=== PATIENT | male | born 1955 | race American Indian/Alaskan Native ===

== ENCOUNTER 2018-07-08 15:42 | Inpatient (IN) | payer OTHER ==
[2018-07-08] MEDS ORDERED: Sodium Chloride 0.9% 1,000 ML IV ONE (16:30)
--- NOTE | 2018-07-08 16:41 | RAD ---
Date of service: 07/08/2018 HISTORY: sob COMPARISON: No prior. FINDINGS: LUNGS: Interstitial and to lesser extent alveolar changes bilaterally. These are primarily peripheral. In the absence of prior studies acuity/chronicity cannot be determined. The overall appearance are suggest chronic interstitial lung disease. PLEURA: No significant pleural effusion identified, no pneumothorax apparent. CARDIOVASCULAR: No atherosclerotic calcification present Normal. OSSEOUS STRUCTURES: No significant abnormalities. VISUALIZED UPPER ABDOMEN: Normal. OTHER FINDINGS: None. IMPRESSION: Peripheral interstitial and to lesser extent confluent changes bilaterally likely chronic in nature. Concordant results with the preliminary interpretation rendered by the emergency department physician procedure.
[2018-07-08 17:05] LABS: BASO # 0.1 K/uL (0.0-0.2); BASO % 0.6 % (0.0-2.0); EOS # 0.1 K/uL (0.0-0.7); EOS % 0.6 % (0.0-4.0); HEMOGLOBIN 13.7 g/dL (12.0-18.0); LYMPH # 1.4 K/uL (1.0-4.3); LYMPH % 11.2 % (20.0-40.0); MEAN CELL VOLUME 97.1 fL (80.0-94.0); MEAN CORPUSCULAR HEMOGLOBIN 32.9 pg (27.0-31.0); MEAN CORPUSCULAR HGB CONC 33.9 g/dL (33.0-37.0); MEAN PLATELET VOLUME 8.6 fL (7.2-11.7); MONO # 0.6 K/uL (0.0-0.8); MONO % 5.1 % (0.0-10.0); NEUT % 82.5 % (50.0-75.0); RBC 4.16 Mil/uL (4.40-5.90); RED CELL DISTRIBUTION WIDTH 14.7 % (11.5-14.5); WHITE BLOOD COUNT 12.1 K/uL (4.8-10.8)
[2018-07-08 17:11] LABS: VENOUS BLOOD GAS PCO2 51 mmHg (40-60); VENOUS BLOOD GAS PO2 19 mm/Hg (30-55); VENOUS BLOOD PH 7.43 (7.32-7.43)
[2018-07-08 17:29] LABS: ALB/GLOB RATIO 0.5 (1.0-2.1); ALBUMIN 3.6 g/dL (3.5-5.0); ALT/SGPT 6 U/L (21-72); AST/SGOT 44 U/L (17-59); BLOOD UREA NITROGEN 9 mg/dL (9-20); CALCIUM 8.8 mg/dl (8.6-10.4); GFR NON-AFRICAN AMERICAN > 60
--- NOTE | 2018-07-08 17:30 | CT ---
Date of service: 07/08/2018 PROCEDURE: CT HEAD WITHOUT CONTRAST. HISTORY: syncope COMPARISON: None available. TECHNIQUE: Axial computed tomography images were obtained through the head/brain without intravenous contrast. Radiation dose: Total exam DLP = 942.83 mGy-cm. This CT exam was performed using one or more of the following dose reduction techniques: Automated exposure control, adjustment of the mA and/or kV according to patient size, and/or use of iterative reconstruction technique. FINDINGS: Streak artifact limits evaluation of the skull base. HEMORRHAGE: No intracranial hemorrhage. BRAIN: No mass effect or edema. No atrophy or chronic microvascular ischemic changes. VENTRICLES: No hydrocephalus. CALVARIUM: Unremarkable. PARANASAL SINUSES: Unremarkable as visualized. No significant inflammatory changes. MASTOID AIR CELLS: Unremarkable as visualized. No inflammatory changes. OTHER FINDINGS: None. IMPRESSION: No acute intracranial pathology identified.
[2018-07-08 18:22] LABS: VENOUS BLOOD GAS BASE EXCESS 3.3 mmol/L (0.0-2.0); VENOUS BLOOD GAS PCO2 48 mmHg (40-60); VENOUS BLOOD GAS PO2 29 mm/Hg (30-55); VENOUS BLOOD PH 7.39 (7.32-7.43)
--- NOTE | 2018-07-08 18:26 | C.PDOC ---
History Of Present Illness 63 y/o male presents to the ER complaining of dizziness. Patient states that he was walking in [facility] when he became dizzy. Someone saw him and gave him a ride to [facility] ER. Upon arrival to ER, patient felt dizzy and fell down on the floor. Rapid response was called in the ER. Patient is also complaining of productive cough with yellow phlegm and chest pain for the past 15 days. He notes that he has loss of appetite and weight loss for the past 2 weeks. He feels nauseous and vomit sometimes after he eats.Denies having fever and chills. Time Seen by Provider: 07/08/18 15:57 Chief Complaint (Nursing): Respiratory Distress History Per: Patient History/Exam Limitations: no limitations Onset/Duration Of Symptoms: Days Current Symptoms Are (Timing): Still Present Severity: Moderate Past Medical History Reviewed: Historical Data, Nursing Documentation, Vital Signs Vital Signs: Last Vital Signs Temp 99.2 F 07/08/18 17:50 Pulse 103 H 07/08/18 17:50 Resp 26 H 07/08/18 17:50 BP 129/87 07/08/18 17:50 Pulse Ox 95 07/08/18 17:50 - Medical History PMH: No Chronic Diseases Other Surgeries: Hx of surgeries Family History: States: No Known Family Hx - Social History Hx Alcohol Use: Yes Hx Substance Use: No - Immunization History Hx Tetanus Toxoid Vaccination: No Hx Influenza Vaccination: No Hx Pneumococcal Vaccination: No Review Of Systems Except As Marked, All Systems Reviewed And Found Negative. Constitutional: Negative for: Fever, Chills Cardiovascular: Positive for: Chest Pain Respiratory: Positive for: Cough. Negative for: Shortness of Breath Gastrointestinal: Positive for: Nausea, Vomiting. Negative for: Abdominal Pain Genitourinary: Negative for: Dysuria, Hematuria Neurological: Positive for: Dizziness Physical Exam - Physical Exam Appears: Other (alert, conscious, appears to be in respiratory distress) Skin: Normal Color, Warm, Dry, Other (clubbing of fingers in bilateral hands) Head: Atraumatic, Normacephalic Eye(s): bilateral: Normal Inspection Nose: Normal Oral Mucosa: Moist Neck: Supple Chest: Symmetrical Cardiovascular: Rhythm Irregular (tachycardiac) Respiratory: Rales (bilaterally), No Rhonchi, No Wheezing, Other (tachypneac) Gastrointestinal/Abdominal: Normal Exam, Bowel Sounds (normal bowel sounds), Soft, No Tenderness, No Guarding, No Rebound Neurological/Psych: Oriented x3, Normal Speech ED Course And Treatment - Laboratory Results Result Diagrams: 07/16/18 08:21 07/16/18 08:21 O2 Sat by Pulse Oximetry: 95 (RA) Pulse Ox Interpretation: Normal - Other Rad CXR X-Ray: Viewed By Me, Read By Radiologist Interpretation: Date of service: 07/08/2018. HISTORY: sob. COMPARISON: No prior. FINDINGS: LUNGS: Interstitial and to lesser extent alveolar changes bilaterally. These are primarily peripheral. In the absence of prior studies acuity/chronicity cannot be determined. The overall appearance are suggest chronic interstitial lung disease. PLEURA: No significant pleural effusion identified, no pneumothorax apparent. CARDIOVASCULAR: No atherosclerotic calcification present. Normal. OSSEOUS STRUCTURES: No significant abnormalities. VISUALIZED UPPER ABDOMEN: Normal. OTHER FINDINGS: None. IMPRESSION: Peripheral interstitial and to lesser extent confluent changes bilaterally likely chronic in nature. . Concordant results with the preliminary interpretation rendered by the emergency department physician\PA at the conclusion of the procedure. - CT Scan/US CT-Chest Other Rad Studies (CT/US): Read By Radiologist, Radiology Report Reviewed CT/US Interpretation: Date of service: 07/08/2018. PROCEDURE: CT Chest without contrast. HISTORY: Interstitial infiltrates on chest radiograph, cough, fever. COMPARISON: None available. TECHNIQUE: Contiguous axial images were obtained through the chest without intravenous contrast enhancement. Sagittal and coronal reconstructions were performed. . Radiation dose: Total exam DLP = 203.96 mGy-cm. This CT exam was performed using one or more of the following dose reduction techniques: Automated exposure control, adjustment of the mA and/or kV according to patient size, and/or use of iterative recon struction technique. FINDINGS: LUNGS: Fairly significant diffuse interstitial fibrosis with areas of bronchiectasis throughout the upper and lower lobes. Additionally, there are also concomitant scattered areas confluent and ground- glass opacities. Elliptical shaped calcified granuloma within the lateral sulcus right lung base. MEDIASTINUM: Heart size is mildly enlarged. No significant pericardial effusion. Ascending thoracic aorta measures approximately 3.4 cm and descending thoracic aorta measures approximately 2.9 cm. Pulmonary trunk measures approximately 2.9 cm. Mild thoracic aortic calcified atherosclerotic plaque present.. Pulmonary artery unremarkable. Mildly enlarged partially calcified paratracheal and subcarinal lymph nodes. Nonspecific partially calcified mediastinal lymph nodes.. Evaluation for hilar adenopathy limited due to lack of circulating intravenous contrast materialwall thickening of the distal esophagus which could be due to protrusion gastric mucosa however esophagitis or other intrinsic/invasive wall lesion not excluded. PLEURA: No pleural fluid. No pneumothorax. BONES: Mild multilevel degenerative spondylosis of the of the thoracic spine. No acute compression fractures no retropulsed fragments.. UPPER ABDOMEN: Grossly unremarkable. OTHER FINDINGS: None. IMPRESSION: Findings consistent with diffuse significant interstitial fibrosis with what probably represents paraseptal emphysematous changes and bronchiectasis. There are scattered areas of confluent and ground-glass opacities. Calcified granuloma right lung base. There are mildly enlarged paratracheal and subcarinal lymph nodes. Small hiatal hernia with wall thickening of distal esophagus as above. CT-Head Other Rad Studies (CT/US): Read By Radiologist, Radiology Report Reviewed CT/US Interpretation: Date of service: 07/08/2018. PROCEDURE: CT HEAD WITHOUT CONTRAST. HISTORY: syncope. COMPARISON: None available. TECHNIQUE: Axial computed tomography images were obtained through the head/brain without intravenous contrast. Radiation dose: Total exam DLP = 942.83 mGy-cm. This CT exam was performed using one or more of the following dose reduction techniques: Automated exposure control, adjustment of the mA and/or kV according to patient size, and/or use of iterative reconstruction technique. FINDINGS: Streak artifact limits evaluation of the skull base. HEMORRHAGE: No intracranial hemorrhage. BRAIN: No mass effect or edema. No atrophy or chronic microvascular ischemic changes. VENTRICLES: No hydrocephalus. CALVARIUM: Unremarkable. PARANASAL SINUSES: Unremarkable as visualized. No significant inflammatory changes. MASTOID AIR CELLS: Unremarkable as visualized. No inflammatory changes. OTHER FINDINGS: None. IMPRESSION: No acute intracranial pathology identified. Medical Decision Making Medical Decision Making: Plan: --Labs --ECG --CXR --UA --CT-Head --CT-Chest --Albuterol --Solu-Medrol IV --IV Fluids Updates: 18:30 Case discussed with , hospitalist. Patient will be admitted under the service of Dr. Mckeon, overnight hospitalist. Disposition - Disposition Disposition: HOSPITALIZED Disposition Time: 18:30 Condition: STABLE - Clinical Impression Clinical Impression: Syncope, Pulmonary fibrosis, Hyperglycemia - Scribe Statement The provider has reviewed the documentation as recorded by the Scribe Sadia Chacon Provider Attestation: All medical record entries made by the Scribe were at my direction and personally dictated by me. I have reviewed the chart and agree that the record accurately reflects my personal performance of the history, physical exam, med ical decision making, and the department course for this patient. I have also personally directed, reviewed, and agree with the discharge instructions and disposition.
[2018-07-08] MEDS ORDERED: Albuterol-Ipratrop 3 mg / 0.5 (3 ml) UD ONE ×3 (18:38→19:35)
[2018-07-08] MEDS: Albuterol-Ipratrop 3 mg / 0.5 (3 ml) UD IH SCH ×3 (18:40→19:33)
[2018-07-08] MEDS: Albuterol-Ipratrop 3 mg / 0.5 (3 ml) UD INH SCH ×3 (21:30→22:07)
[2018-07-08 21:58] LABS: URINE BACTERIA RARE (<OCC); URINE BILIRUBIN NEGATIVE (NEGATIVE); URINE BLOOD 2+ (NEGATIVE); URINE CLARITY Hazy (Clear); URINE COLOR Yellow (YELLOW); URINE GLUCOSE (UA) NORMAL (Normal); URINE LEUKOCYTE ESTERASE NEG Leu/uL (Negative); URINE PROTEIN NEGATIVE (NEGATIVE); URINE UROBILINOGEN NORMAL mg/dL (0.2-1.0)
[2018-07-08] MEDS: MethylPREDNISolone 40 mg Vial IVP SCH (22:10)
[2018-07-08] MEDS ORDERED: Glucagon Recombinant 1 mg Inj IM PRN (22:28)
[2018-07-08] MEDS ORDERED: Dextrose 50% SYRINGE Inj (50 ml) IV PRN (22:28)
--- NOTE | 2018-07-08 22:44 | CP.PCM.HP ---
<Sofia Ospina Y - Last Filed: 07/09/18 05:12> History of Present Illness - History of Present Illness History of Present Illness: cc: "SOB" Mr. Cooley is a 53 year old O[place]i male with PMHx of prediabetes and hypotension who presents to the ED today on 07/08/18 with complaint of shortness of breath with associated chest pain on exertion with productive cough that started 15 days ago. He started to feel unwell and weak about 1 month ago. He says the SOB and chest pain occurred on and off every day, but no longer receded since 15 days ago. He described the chest pain as lung spasms and rated it 5/10 in severity. He located the chest pain as occurring on both sides of his chest and wrapping around his back and going down to his hips. The pain resolves within 30 min of rest, however immediately returns in as few as 5 steps. Every time he coughs, he produces a sticky, thick, white sputum; does not report any blood and mucus in the sputum. He reports that it is now painful to cough. He reports feeling nauseous every time he wants to eat for past 1 week. He estimates a 10kg weight loss in the last two years, mostly over the past 3 months. He says someone found him feeling dizzy and sitting on the ground on [facility] and brought him to the ED. Once in the hospital waiting room, he had an observed syncopal episode. PMD: none PMHx: prediabetes, hypotension Med: none, cannot afford All: NKDA PSHx: unspecified abdominal surgery (20 yrs ago) FamHx: mother and father had diabetes and of [place] in their 70s. SocHx: quit tobacco cold turkey 1 month ago, previous 1/2ppd [id number]. quit alcohol 1 month ago, previously drinking a fifth of liquor (usually vodka) daily. Denies illicit drug use. He does not have family in the country, and illegally immigrated from [place] two years ago. Currently homeless and living in a friend's garage. 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 Denies Proxy Full Code Present on Admission - Present on Admission Any Indicators Present on Admission: No Review of Systems - Constitutional Constitutional: Chills, Weight Loss, Weakness. absent: Excessive Sweating, Fever - EENT Eyes: absent: Change in Vision Ears: absent: Abnormal Hearing, Dizziness - Cardiovascular Cardiovascular: Chest Pain. absent: Palpitations - Respiratory Respiratory: Cough, Dyspnea on Exertion, Excessive Mucous Production, Pain with Coughing. absent: Change in Mucous Color - Gastrointestinal Gastrointestinal: Abdominal Pain. absent: Constipation, Diarrhea, Nausea, Vomiting - Genitourinary Genitourinary: Urinary Frequency. absent: Flank Pain - Musculoskeletal Musculoskeletal: Back Pain, Muscle Weakness, Numbness, Tingling. absent: Myalgias - Integumentary Integumentary: Dry Skin, Wounds. absent: Rash, Swelling, Unusual Bruising - Neurological Neurological: Disequilibrium, Dizziness, Syncope. absent: Numbness, Tingling - Psychiatric Psychiatric: Depression - Endocrine Endocrine: Fatigue, Polyuria. absent: Excessive Sweating - Hematologic/Lymphatic Hematologic: absent: Easy Bleeding, Easy Bruising Past Patient History - Past Medical History & Family History Pertinent Family History: DM on both sides - Past Social History Smoking Status: Heavy Smoker > 10 Cigarettes Daily (quit <1 mo ago) Alcohol: > 2 Drinks/Day (used to drink 1/2 500mL bottle of vodka per day, quit drinking 1 month ago) Drugs: Denies Home Situation {Lives}: Homeless - CARDIAC Hx Hypotension: Yes - PSYCHIATRIC Hx Substance Use: No - SURGICAL HISTORY Hx Surgeries: Yes Other/Comment: peptic ulcer surgery - ANESTHESIA Hx Anesthesia: No Hx Anesthesia Reactions: No Meds Allergies/Adverse Reactions: Allergies Allergy/AdvReac Type Severity Reaction Status Date / Time No Known Allergies Allergy Unverified 07/08/18 15:44 Physical Exam - Constitutional Appears: In Acute Distress - Head Exam Head Exam: NORMAL INSPECTION - Eye Exam Eye Exam: EOMI, Normal appearance, PERRL Pupil Exam: NORMAL ACCOMODATION - ENT Exam ENT Exam: Mucous Membranes Dry - Neck Exam Neck exam: Negative for: Lymphadenopathy, Tenderness, Thyromegaly - Respiratory Exam Respiratory Exam: Accessory Muscle Use, Rales, Wheezes Additional comments: diffuse rales, worst in R lower lobe expiratory wheeze - Cardiovascular Exam Cardiovascular Exam: Tachycardia, JVD, +S1, +S2. absent: Rubs Additional comments: diminished heart sounds - GI/Abdominal Exam GI & Abdominal Exam: Normal Bowel Sounds, Pulsatile Mass (1 inch L of midline), Soft. absent: Distended, Firm, Guarding, Rebound Additional comments: TTP over midline surgical scar - Extremities Exam Extremities exam: Positive for: normal capillary refill, pedal pulses present Additional comments: R foot cool to touch peripheral pulses palpable bilaterally (radial, PT, DP) - Back Exam Back exam: absent: CVA tenderness (L), CVA tenderness (R) - Neurological Exam Neurological exam: Alert, CN II-XII Intact, Oriented x3, Reflexes Normal - Psychiatric Exam Psychiatric exam: Normal Affect, Normal Mood - Skin Skin Exam: Normal Color, Warm Additional comments: Dry flaky skin on bilateral shins consistent with PVD bilateral finger clubbing Results - Vital Signs Recent Vital Signs: Last Vital Signs Temp 98.3 F 07/08/18 20:43 Pulse 103 H 07/08/18 22:08 Resp 47 H 07/08/18 20:43 BP 129/84 07/08/18 20:43 Pulse Ox 94 L 07/08/18 20:43 - Labs Result Diagrams: 07/09/18 04:36 07/09/18 04:36 Labs: Laboratory Results - last 24 hr 07/08/18 07/08/18 07/08/18 16:57 16:57 17:09 WBC 12.1 H RBC 4.16 L Hgb 13.7 Hct 40.3 MCV 97.1 H MCH 32.9 H MCHC 33.9 RDW 14.7 H Plt Count 319 MPV 8.6 Neut % (Auto) 82.5 H Lymph % (Auto) 11.2 L Cache % (Auto) 5.1 Eos % (Auto) 0.6 Baso % (Auto) 0.6 Neut # (Auto) 10.0 H Lymph # (Auto) 1.4 Cache # (Auto) 0.6 Eos # (Auto) 0.1 Baso # (Auto) 0.1 pO2 19 L VBG pH 7.43 VBG pCO2 51 VBG HCO3 29.4 VBG Total CO2 35.5 H VBG O2 Sat (Calc) 28.3 L VBG Base Excess 8.0 H VBG Potassium 4.5 Glucose 129 H Lactate 1.4 Sodium 137 138.0 Potassium 4.7 Chloride 96 L 104.0 Carbon Dioxide 32 H Anion Gap 14 BUN 9 Creatinine 0.7 L Est GFR ( Amer) > 60 Est GFR (Non-Af Amer) > 60 Random Glucose 136 H Calcium 8.8 Phosphorus 3.7 Magnesium 2.1 Total Bilirubin 0.4 AST 44 ALT 6 L Alkaline Phosphatase 72 Troponin I 0.0270 NT-Pro-B Natriuret Pep Total Protein 10.0 H Albumin 3.6 Globulin 6.5 H Albumin/Globulin Ratio 0.5 L Venous Blood Potassium 4.5 Urine Color Urine Clarity Urine pH Ur Specific Perkins Urine Protein Urine Glucose (UA) Urine Ketones Urine Blood Urine Nitrate Urine Bilirubin Urine Urobilinogen Ur Leukocyte Esterase Urine WBC (Auto) Urine RBC (Auto) Urine Bacteria Influenza Typ A,B (EIA) 07/08/18 07/08/18 07/08/18 17:35 18:19 18:25 WBC RBC Hgb Hct MCV MCH MCHC RDW Plt Count MPV Neut % (Auto) Lymph % (Auto) Cache % (Auto) Eos % (Auto) Baso % (Auto) Neut # (Auto) Lymph # (Auto) Cache # (Auto) Eos # (Auto) Baso # (Auto) pO2 29 L VBG pH 7.39 VBG pCO2 48 VBG HCO3 26.3 VBG Total CO2 30.6 H VBG O2 Sat (Calc) 56.3 VBG Base Excess 3.3 H VBG Potassium 4.2 Glucose 101 Lactate 1.5 Sodium 138.0 Potassium Chloride 105.0 Carbon Dioxide Anion Gap BUN Creatinine Est GFR ( Amer) Est GFR (Non-Af Amer) Random Glucose Calcium Phosphorus Magnesium Total Bilirubin AST ALT Alkaline Phosphatase Troponin I NT-Pro-B Natriuret Pep 1540 H Total Protein Albumin Globulin Albumin/Globulin Ratio Venous Blood Potassium 4.2 Urine Color Urine Clarity Urine pH Ur Specific Perkins Urine Protein Urine Glucose (UA) Urine Ketones Urine Blood Urine Nitrate Urine Bilirubin Urine Urobilinogen Ur Leukocyte Esterase Urine WBC (Auto) Urine RBC (Auto) Urine Bacteria Influenza Typ A,B (EIA) Negative for flu a/b 07/08/18 21:42 WBC RBC Hgb Hct MCV MCH MCHC RDW Plt Count MPV Neut % (Auto) Lymph % (Auto) Cache % (Auto) Eos % (Auto) Baso % (Auto) Neut # (Auto) Lymph # (Auto) Cache # (Auto) Eos # (Auto) Baso # (Auto) pO2 VBG pH VBG pCO2 VBG HCO3 VBG Total CO2 VBG O2 Sat (Calc) VBG Base Excess VBG Potassium Glucose Lactate Sodium Potassium Chloride Carbon Dioxide Anion Gap BUN Creatinine Est GFR ( Amer) Est GFR (Non-Af Amer) Random Glucose Calcium Phosphorus Magnesium Total Bilirubin AST ALT Alkaline Phosphatase Troponin I NT-Pro-B Natriuret Pep Total Protein Albumin Globulin Albumin/Globulin Ratio Venous Blood Potassium Urine Color Yellow Urine Clarity Hazy Urine pH 6.0 Ur Specific Perkins 1.011 Urine Protein Negative Urine Glucose (UA) Normal Urine Ketones Negative Urine Blood 2+ H Urine Nitrate Negative Urine Bilirubin Negative Urine Urobilinogen Normal Ur Leukocyte Esterase Neg Urine WBC (Auto) < 1 Urine RBC (Auto) 15 H Urine Bacteria Rare Influenza Typ A,B (EIA) Assessment & Plan - Assessment and Plan (Free Text) Assessment: 63yo [place]man[place] M admitted for respiratory distress. Shortness of breath with assoc chest pain and productive cough has progressively worsening over the last 15 days. Plan: Respiratory Distress with tachypnea - CXR (07/08): Peripheral interstitial and to lesser extent confluent changes bilaterally likely chronic in nature - CT Head (07/08): No acute intracranial pathology identified - CT Chest (07/08): pending read. Prelim read: Extensive diffuse chronic interstitial lung disease with assoc bronchiectasis. Precarinal and paratracheal lymphadenopathy - ProBNP 1540 - VBG on admission: pH 7.39, total CO2 30.6 - ABG after 1 hr BiPAP: pH 7.38, total CO2 26.7 - UA 2+ blood, 15 RBC - UDS neg - Flu neg - f/u sputum Cx - f/u PPD, Quatiferon, HIV - f/u ECHO - Solumedrol 60mg IVP q8 (125mg IV given in ED) - Azithro 500mg IVPB daily (started 07/09) - Ceftriaxone 1gm IVPB daily (started 07/09) - Critical Care consulted: Dr. Hoffman - recs appreciated - Duoneb q30 min x3 given in ED - Duoneb q6 ATC - BiPAP despite good O2 saturation - fluid restriction - Pulm consult: Dr. Vera - help appreciated - respiratory isolation until TB neg and sputum Cx result Syncope - likely 2/2 hypoxia from respiratory distress - observed syncopal event in ED waiting area - see above for plan Diabetes Mellitus - f/u Hgb A1c - ISS - Accuchecks ACHS - hypoglycemia protocol Abdominal mass - f/u US aorta - monitor BP PPx - DVT: Heparin 5000u sc q12, SCD CI 2/2 PVD - GI: Protonix 40mg IVP daily - Diet: CLD, ADAT d/w Dr. Miriam Ospina PGY-1 - Date & Time Date: 07/08/18 Time: 21:00 <Artem Pineda - Last Filed: 07/09/18 06:23> Results - Vital Signs Recent Vital Signs: Last Vital Signs Temp 98.3 F 07/08/18 20:43 Pulse 65 07/09/18 06:14 Resp 17 07/09/18 06:14 BP 115/75 07/09/18 06:14 Pulse Ox 98 07/09/18 06:14 - Labs Result Diagrams: 07/09/18 04:36 07/09/18 04:36 Labs: Laboratory Results - last 24 hr 07/08/18 07/08/18 07/08/18 16:57 16:57 17:09 WBC 12.1 H RBC 4.16 L Hgb 13.7 Hct 40.3 MCV 97.1 H MCH 32.9 H MCHC 33.9 RDW 14.7 H Plt Count 319 MPV 8.6 Neut % (Auto) 82.5 H Lymph % (Auto) 11.2 L Cache % (Auto) 5.1 Eos % (Auto) 0.6 Baso % (Auto) 0.6 Neut # (Auto) 10.0 H Lymph # (Auto) 1.4 Cache # (Auto) 0.6 Eos # (Auto) 0.1 Baso # (Auto) 0.1 Neutrophils % (Manual) Lymphocytes % (Manual) Monocytes % (Manual) Platelet Estimate Puncture Site pCO2 pO2 19 L HCO3 ABG pH ABG Total CO2 ABG O2 Saturation ABG Base Excess ABG Hemoglobin ABG Carboxyhemoglobin POC ABG HHb (Measured) ABG Methemoglobin Ron Test VBG pH 7.43 VBG pCO2 51 VBG HCO3 29.4 VBG Total CO2 35.5 H VBG O2 Sat (Calc) 28.3 L VBG Base Excess 8.0 H VBG Potassium 4.5 A-a O2 Difference Respiratory Index Hgb O2 Saturation Glucose 129 H Lactate 1.4 Vent Mode Mechanical Rate FiO2 Inspiratory BiPAP Expiratory BiPAP Sodium 137 138.0 Potassium 4.7 Chloride 96 L 104.0 Carbon Dioxide 32 H Anion Gap 14 BUN 9 Creatinine 0.7 L Est GFR ( Amer) > 60 Est GFR (Non-Af Amer) > 60 POC Glucose (mg/dL) Random Glucose 136 H Calcium 8.8 Phosphorus 3.7 Magnesium 2.1 Total Bilirubin 0.4 AST 44 ALT 6 L Alkaline Phosphatase 72 Troponin I 0.0270 NT-Pro-B Natriuret Pep Total Protein 10.0 H Albumin 3.6 Globulin 6.5 H Albumin/Globulin Ratio 0.5 L Venous Blood Potassium 4.5 Urine Color Urine Clarity Urine pH Ur Specific Perkins Urine Protein Urine Glucose (UA) Urine Ketones Urine Blood Urine Nitrate Urine Bilirubin Urine Urobilinogen Ur Leukocyte Esterase Urine WBC (Auto) Urine RBC (Auto) Urine Bacteria Urine Opiates Screen Urine Methadone Screen Ur Barbiturates Screen Ur Phencyclidine Scrn Ur Amphetamines Screen U Benzodiazepines Scrn U Oth Cocaine Metabols U Cannabinoids Screen HIV 1&2 Antibody Screen Influenza Typ A,B (EIA) 07/08/18 07/08/18 07/08/18 17:35 18:19 18:25 WBC RBC Hgb Hct MCV MCH MCHC RDW Plt Count MPV Neut % (Auto) Lymph % (Auto) Cache % (Auto) Eos % (Auto) Baso % (Auto) Neut # (Auto) Lymph # (Auto) Cache # (Auto) Eos # (Auto) Baso # (Auto) Neutrophils % (Manual) Lymphocytes % (Manual) Monocytes % (Manual) Platelet Estimate Puncture Site pCO2 pO2 29 L HCO3 ABG pH ABG Total CO2 ABG O2 Saturation ABG Base Excess ABG Hemoglobin ABG Carboxyhemoglobin POC ABG HHb (Measured) ABG Methemoglobin Ron Test VBG pH 7.39 VBG pCO2 48 VBG HCO3 26.3 VBG Total CO2 30.6 H VBG O2 Sat (Calc) 56.3 VBG Base Excess 3.3 H VBG Potassium 4.2 A-a O2 Difference Respiratory Index Hgb O2 Saturation Glucose 101 Lactate 1.5 Vent Mode Mechanical Rate FiO2 Inspiratory BiPAP Expiratory BiPAP Sodium 138.0 Potassium Chloride 105.0 Carbon Dioxide Anion Gap BUN Creatinine Est GFR ( Amer) Est GFR (Non-Af Amer) POC Glucose (mg/dL) Random Glucose Calcium Phosphorus Magnesium Total Bilirubin AST ALT Alkaline Phosphatase Troponin I NT-Pro-B Natriuret Pep 1540 H Total Protein Albumin Globulin Albumin/Globulin Ratio Venous Blood Potassium 4.2 Urine Color Urine Clarity Urine pH Ur Specific Perkins Urine Protein Urine Glucose (UA) Urine Ketones Urine Blood Urine Nitrate Urine Bilirubin Urine Urobilinogen Ur Leukocyte Esterase Urine WBC (Auto) Urine RBC (Auto) Urine Bacteria Urine Opiates Screen Urine Methadone Screen Ur Barbiturates Screen Ur Phencyclidine Scrn Ur Amphetamines Screen U Benzodiazepines Scrn U Oth Cocaine Metabols U Cannabinoids Screen HIV 1&2 Antibody Screen Influenza Typ A,B (EIA) Negative for flu a/b 07/08/18 07/08/18 07/08/18 21:42 23:00 23:51 WBC RBC Hgb Hct MCV MCH MCHC RDW Plt Count MPV Neut % (Auto) Lymph % (Auto) Cache % (Auto) Eos % (Auto) Baso % (Auto) Neut # (Auto) Lymph # (Auto) Cache # (Auto) Eos # (Auto) Baso # (Auto) Neutrophils % (Manual) Lymphocytes % (Manual) Monocytes % (Manual) Platelet Estimate Puncture Site Rradial pCO2 43 pO2 206 H HCO3 24.9 ABG pH 7.38 ABG Total CO2 26.7 ABG O2 Saturation 98.6 H ABG Base Excess 0 ABG Hemoglobin 14.5 ABG Carboxyhemoglobin 1.1 POC ABG HHb (Measured) 1.4 ABG Methemoglobin 0.9 Ron Test Pos VBG pH VBG pCO2 VBG HCO3 VBG Total CO2 VBG O2 Sat (Calc) VBG Base Excess VBG Potassium A-a O2 Difference 25.0 Respiratory Index 0.1 Hgb O2 Saturation 96.6 Glucose Lactate Vent Mode Bipap Mechanical Rate 12 FiO2 40.0 Inspiratory BiPAP 12 Expiratory BiPAP 6 Sodium Potassium Chloride Carbon Dioxide Anion Gap BUN Creatinine Est GFR ( Amer) Est GFR (Non-Af Amer) POC Glucose (mg/dL) Random Glucose Calcium Phosphorus Magnesium Total Bilirubin AST ALT Alkaline Phosphatase Troponin I NT-Pro-B Natriuret Pep Total Protein Albumin Globulin Albumin/Globulin Ratio Venous Blood Potassium Urine Color Yellow Urine Clarity Hazy Urine pH 6.0 Ur Specific Perkins 1.011 Urine Protein Negative Urine Glucose (UA) Normal Urine Ketones Negative Urine Blood 2+ H Urine Nitrate Negative Urine Bilirubin Negative Urine Urobilinogen Normal Ur Leukocyte Esterase Neg Urine WBC (Auto) < 1 Urine RBC (Auto) 15 H Urine Bacteria Rare Urine Opiates Screen Negative Urine Methadone Screen Negative Ur Barbiturates Screen Negative Ur Phencyclidine Scrn Negative Ur Amphetamines Screen Negative U Benzodiazepines Scrn Negative U Oth Cocaine Metabols Negative U Cannabinoids Screen Negative HIV 1&2 Antibody Screen Influenza Typ A,B (EIA) 07/09/18 07/09/18 07/09/18 00:22 04:36 04:36 WBC 6.9 RBC 4.26 L Hgb 13.9 Hct 42.1 MCV 98.8 H MCH 32.6 H MCHC 33.0 RDW 14.9 H Plt Count 300 MPV 8.7 Neut % (Auto) 90.6 H Lymph % (Auto) 8.4 L Cache % (Auto) 0.7 Eos % (Auto) 0.0 Baso % (Auto) 0.3 Neut # (Auto) 6.2 Lymph # (Auto) 0.6 L Cache # (Auto) 0.0 Eos # (Auto) 0.0 Baso # (Auto) 0.0 Neutrophils % (Manual) 88 H Lymphocytes % (Manual) 9 L Monocytes % (Manual) 3 Platelet Estimate Normal Puncture Site pCO2 pO2 HCO3 ABG pH ABG Total CO2 ABG O2 Saturation ABG Base Excess ABG Hemoglobin ABG Carboxyhemoglobin POC ABG HHb (Measured) ABG Methemoglobin Ron Test VBG pH VBG pCO2 VBG HCO3 VBG Total CO2 VBG O2 Sat (Calc) VBG Base Excess VBG Potassium A-a O2 Difference Respiratory Index Hgb O2 Saturation Glucose Lactate Vent Mode Mechanical Rate FiO2 Inspiratory BiPAP Expiratory BiPAP Sodium 136 Potassium 5.1 Chloride 102 Carbon Dioxide 27 Anion Gap 12 BUN 14 Creatinine 0.7 L Est GFR ( Amer) > 60 Est GFR (Non-Af Amer) > 60 POC Glucose (mg/dL) 203 H Random Glucose 173 H Calcium 8.7 Phosphorus 5.2 H Magnesium 2.2 Total Bilirubin 0.4 AST 38 ALT 9 L D Alkaline Phosphatase 71 Troponin I NT-Pro-B Natriuret Pep Total Protein 9.5 H Albumin 3.5 Globulin 6.0 H Albumin/Globulin Ratio 0.6 L Venous Blood Potassium Urine Color Urine Clarity Urine pH Ur Specific Perkins Urine Protein Urine Glucose (UA) Urine Ketones Urine Blood Urine Nitrate Urine Bilirubin Urine Urobilinogen Ur Leukocyte Esterase Urine WBC (Auto) Urine RBC (Auto) Urine Bacteria Urine Opiates Screen Urine Methadone Screen Ur Barbiturates Screen Ur Phencyclidine Scrn Ur Amphetamines Screen U Benzodiazepines Scrn U Oth Cocaine Metabols U Cannabinoids Screen HIV 1&2 Antibody Screen Influenza Typ A,B (EIA) 07/09/18 04:36 WBC RBC Hgb Hct MCV MCH MCHC RDW Plt Count MPV Neut % (Auto) Lymph % (Auto) Cache % (Auto) Eos % (Auto) Baso % (Auto) Neut # (Auto) Lymph # (Auto) Cache # (Auto) Eos # (Auto) Baso # (Auto) Neutrophils % (Manual) Lymphocytes % (Manual) Monocytes % (Manual) Platelet Estimate Puncture Site pCO2 pO2 HCO3 ABG pH ABG Total CO2 ABG O2 Saturation ABG Base Excess ABG Hemoglobin ABG Carboxyhemoglobin POC ABG HHb (Measured) ABG Methemoglobin Ron Test VBG pH VBG pCO2 VBG HCO3 VBG Total CO2 VBG O2 Sat (Calc) VBG Base Excess VBG Potassium A-a O2 Difference Respiratory Index Hgb O2 Saturation Glucose Lactate Vent Mode Mechanical Rate FiO2 Inspiratory BiPAP Expiratory BiPAP Sodium Potassium Chloride Carbon Dioxide Anion Gap BUN Creatinine Est GFR ( Amer) Est GFR (Non-Af Amer) POC Glucose (mg/dL) Random Glucose Calcium Phosphorus Magnesium Total Bilirubin AST ALT Alkaline Phosphatase Troponin I NT-Pro-B Natriuret Pep Total Protein Albumin Globulin Albumin/Globulin Ratio Venous Blood Potassium Urine Color Urine Clarity Urine pH Ur Specific Perkins Urine Protein Urine Glucose (UA) Urine Ketones Urine Blood Urine Nitrate Urine Bilirubin Urine Urobilinogen Ur Leukocyte Esterase Urine WBC (Auto) Urine RBC (Auto) Urine Bacteria Urine Opiates Screen Urine Methadone Screen Ur Barbiturates Screen Ur Phencyclidine Scrn Ur Amphetamines Screen U Benzodiazepines Scrn U Oth Cocaine Metabols U Cannabinoids Screen HIV 1&2 Antibody Screen Negative Influenza Typ A,B (EIA) Assessment & Plan - Date & Time Date: 07/09/18 (I have seen and examined the patient. I agree with the findings and plan of care as documented by Dr. Ospina. Patient with respiratory distress. Pulmonary fibrosis. Consult to pulm. ICU consult appreciated. Anicetoro and Swetha for now. BIPAP. Also with history of diabetes. NISS and accuchecks. Monitor for acute changes.) Time: 06:21 Attending/Attestation - Attestation I have personally seen and examined this patient.: Yes I have fully participated in the care of the patient.: Yes I have reviewed all pertinent clinical information: Yes
[2018-07-08 23:11] LABS: ABG ALLEN TEST POS; ARTERIAL BLOOD GAS HCO3 24.9 mmol/L (21-28); ARTERIAL BLOOD GAS HEMOGLOBIN 14.5 g/dL (11.7-17.4); ARTERIAL BLOOD GAS O2 SAT 98.6 % (95-98); ARTERIAL BLOOD GAS PCO2 43 mm/Hg (35-45); ARTERIAL BLOOD GAS PH 7.38 (7.35-7.45); ARTERIAL BLOOD GAS PO2 206 mm/Hg (80-100); ARTERIAL BLOOD GAS TCO2 26.7 mmol/L (22-28)
[2018-07-08] MEDS ORDERED: Tuberculin 5 Units/0.1 ml Inj ID ONE (23:45)
[2018-07-09 00:10] LABS: BARBITURATES, UR NEGATIVE (NEGATIVE); BENZODIAZEPINES, UR NEGATIVE (NEGATIVE); OPIATES, UR NEGATIVE (NEGATIVE); PHENCYCLIDINE, UR NEGATIVE (NEGATIVE)
--- NOTE | 2018-07-09 00:44 | CP.CCUPN ---
CCU Subjective - Physician Review Subjective (Free Text): 07/09/18 04:28 The patient was Seen/interviewed and examined by me at the bedside, Medical records reviewed and Management issues were discussed and formulated with the house staff. Events reviewed Mr Cooley is a 63 Years old Former tobacco smoker (1/2 PPD [id number], quit 1 month ago) Male with PMHx of prediabetes and hypotension Who presented to the Emergency department with complaint of worsening shortness of breath, productive cough with white sputum associated pleuritic chest pain for the past two weeks Pt admits 10kg weight loss in the last two years, mostly over the past 3 months. 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 I belive the chest CT findings of extensive fibrosis however do not allow a confident diagnosis of IPF, and lung biopsy is indicated for histopathologic confirmation Lung biopsy options include Bronch, video-assisted thoracoscopic approach or thoracotomy Please send serilogical marker for Rheumatic, connective tissue diseases CCU Objective - Vital Signs / Intake & Output Vital Signs (Last 4 hours): Vital Signs Temp Pulse Resp BP Pulse Ox 07/08/18 23:48 91 H 31 H 106/76 97 07/08/18 22:08 103 H 07/08/18 20:43 98.3 F 106 H 47 H 129/84 94 L Intake and Output (Last 8hrs): Intake & Output 07/08/18 07/08/18 07/09/18 14:59 22:59 06:59 Weight 150 lb - Physical Exam Physical Exam Limitations: Positive for: Clinical Condition Head: Positive for: Atraumatic, Normocephalic. Negative for: Tenderness, Contusion, Swelling, Ecchymosis Pupils: Positive for: PERRL. Negative for: Sluggish, Non-Reactive Extroacular Muscles: Positive for: EOMI Conjunctiva: Positive for: Normal. Negative for: Injected, Icteric Ears: Positive for: Normal Mouth: Positive for: Moist Mucous Membranes Nose (Internal): Positive for: Normal Inspection, No Active Bleeding Neck: Positive for: Normal Range of Motion, Trachea Midline. Negative for: Meningeal Signs, MIDLINE TENDERNESS, Paraspinal Tenderness, JVD, Lymphadenopathy, Bruit, Other Respiratory/Chest: Positive for: Good Air Exchange, Decreased Breath Sounds, Rhonchi, Tachypneic. Negative for: Clear to Auscultation, Respiratory Distress, Accessory Muscle Use, Rales, Retracting Cardiovascular: Positive for: Regular Rate and Rhythm, Normal S1, S2, Peripheal Pulses Present, Tachycardic. Negative for: Murmurs, Irregular Rhythm, Muffled Abdomen: Positive for: Normal Bowel Sounds. Negative for: Tenderness, Distention, Peritoneal Signs Upper Extremity: Positive for: NORMAL PULSES. Negative for: Normal Inspection (Clubbing), Cyanosis, Edema Lower Extremity: Positive for: Normal Inspection, NORMAL PULSES. Negative for: Edema, CALF TENDERNESS - Medications Active Medications: Active Medications Generic Name Dose Route Start Last Admin Trade Name Freq PRN Reason Stop Dose Admin Albuterol/Ipratropium 3 ml 07/09/18 02:00 Duoneb 3 Mg/0.5 Mg (3 Ml) Ud INH RQ6 SPEEDY Dextrose 0 ml 07/08/18 22:28 Dextrose 50% Inj IV STAT PRN Hypoglycemia Protocol Protocol Dextrose 0 gm 07/08/18 22:28 Glutose 15 PO ONCE PRN Hypoglycemia Protocol Protocol Glucagon 0 mg 07/08/18 22:28 Glucagen Diagnostic Kit IM STAT PRN Hypoglycemia Protocol Protocol Heparin Sodium (Porcine) 5,000 units 07/09/18 10:00 Heparin SC Q12 SPEEDY Dextrose 1,000 mls @ 0 mls/hr 07/08/18 22:28 Dextrose 5% In Water 1000 Ml IV .Q0M PRN Hypoglycemia Protocol Protocol Per Protocol Azithromycin 500 mg/ Sodium 250 mls @ 250 mls/hr 07/09/18 10:00 Chloride IVPB DAILY SPEEDY Protocol Ceftriaxone Sodium 1 gm/ 100 mls @ 100 mls/hr 07/09/18 10:00 Sodium Chloride IVPB DAILY SPEEDY Protocol Insulin Human Regular 0 unit 07/09/18 07:30 Novolin R SC ACHS SPEEDY Protocol Methylprednisolone 60 mg 07/08/18 22:00 Solu-Medrol IVP Q8 SPEEDY Pantoprazole Sodium 40 mg 07/09/18 10:00 Protonix Inj IVP DAILY SPEEDY - Patient Studies Lab Studies: Lab Studies 07/09/18 07/08/18 07/08/18 Range/Units 00:22 23:51 23:00 WBC (4.8-10.8) K/uL RBC (4.40-5.90) Mil/uL Hgb (12.0-18.0) g/dL Hct (35.0-51.0) % MCV (80.0-94.0) fL MCH (27.0-31.0) pg MCHC (33.0-37.0) g/dL RDW (11.5-14.5) % Plt Count (130-400) K/uL MPV (7.2-11.7) fL Neut % (Auto) (50.0-75.0) % Lymph % (Auto) (20.0-40.0) % Stewart % (Auto) (0.0-10.0) % Eos % (Auto) (0.0-4.0) % Baso % (Auto) (0.0-2.0) % Neut # (Auto) (1.8-7.0) K/uL Lymph # (Auto) (1.0-4.3) K/uL Stewart # (Auto) (0.0-0.8) K/uL Eos # (Auto) (0.0-0.7) K/uL Baso # (Auto) (0.0-0.2) K/uL Puncture Site Rradial pCO2 43 (35-45) mm/Hg pO2 206 H (30-55) mm/Hg HCO3 24.9 (21-28) mmol/L ABG pH 7.38 (7.35-7.45) ABG Total CO2 26.7 (22-28) mmol/L ABG O2 Saturation 98.6 H (95-98) % ABG Base Excess 0 (-2.0-3.0) mmol/L ABG Hemoglobin 14.5 (11.7-17.4) g/dL ABG Carboxyhemoglobin 1.1 (0.5-1.5) % POC ABG HHb (Measured) 1.4 (0.0-5.0) % ABG Methemoglobin 0.9 (0.0-3.0) % Ron Test Pos VBG pH (7.32-7.43) VBG pCO2 (40-60) mmHg VBG HCO3 mmol/L VBG Total CO2 (22-28) mmol/L VBG O2 Sat (Calc) (40-65) % VBG Base Excess (0.0-2.0) mmol/L VBG Potassium (3.6-5.2) mmol/L A-a O2 Difference 25.0 mm/Hg Respiratory Index 0.1 Hgb O2 Saturation 96.6 (95.0-98.0) % Glucose (75-110) mg/dl Lactate (0.7-2.1) mmol/L Vent Mode Bipap Mechanical Rate 12 FiO2 40.0 % Inspiratory BiPAP 12 Expiratory BiPAP 6 Sodium (132-148) mmol/L Potassium (3.6-5.2) mmol/L Chloride (98-107) mmol/L Carbon Dioxide (22-30) mmol/L Anion Gap (10-20) BUN (9-20) mg/dL Creatinine (0.8-1.5) mg/dL Est GFR ( Amer) Est GFR (Non-Af Amer) POC Glucose (mg/dL) 203 H (65-110) mg/dL Random Glucose (75-110) mg/dL Calcium (8.6-10.4) mg/dl Phosphorus (2.5-4.5) mg/dL Magnesium (1.6-2.3) mg/dL Total Bilirubin (0.2-1.3) mg/dL AST (17-59) U/L ALT (21-72) U/L Alkaline Phosphatase (38-126) U/L Troponin I (0.00-0.120) ng/mL NT-Pro-B Natriuret Pep (0-900) pg/mL Total Protein (6.3-8.3) g/dL Albumin (3.5-5.0) g/dL Globulin (2.2-3.9) gm/dL Albumin/Globulin Ratio (1.0-2.1) Venous Blood Potassium (3.6-5.2) mmol/L Urine Color (YELLOW) Urine Clarity (Clear) Urine pH (5.0-8.0) Ur Specific [place] (1.003-1.030) Urine Protein (NEGATIVE) mg/dL Urine Glucose (UA) (Normal) mg/dL Urine Ketones (NEGATIVE) mg/dL Urine Blood (NEGATIVE) Urine Nitrate (NEGATIVE) Urine Bilirubin (NEGATIVE) Urine Urobilinogen (0.2-1.0) mg/dL Ur Leukocyte Esterase (Negative) Xiao/uL Urine WBC (Auto) (0-5) /hpf Urine RBC (Auto) (0-3) /hpf Urine Bacteria (<OCC) Urine Opiates Screen Negative (NEGATIVE) Urine Methadone Screen Negative (NEGATIVE) Ur Barbiturates Screen Negative (NEGATIVE) Ur Phencyclidine Scrn Negative (NEGATIVE) Ur Amphetamines Screen Negative (NEGATIVE) U Benzodiazepines Scrn Negative (NEGATIVE) U Oth Cocaine Metabols Negative (NEGATIVE) U Cannabinoids Screen Negative (NEGATIVE) Influenza Typ A,B (EIA) (NEGATIVE) 07/08/18 07/08/18 07/08/18 Range/Units 21:42 18:25 18:19 WBC (4.8-10.8) K/uL RBC (4.40-5.90) Mil/uL Hgb (12.0-18.0) g/dL Hct (35.0-51.0) % MCV (80.0-94.0) fL MCH (27.0-31.0) pg MCHC (33.0-37.0) g/dL RDW (11.5-14.5) % Plt Count (130-400) K/uL MPV (7.2-11.7) fL Neut % (Auto) (50.0-75.0) % Lymph % (Auto) (20.0-40.0) % Stewart % (Auto) (0.0-10.0) % Eos % (Auto) (0.0-4.0) % Baso % (Auto) (0.0-2.0) % Neut # (Auto) (1.8-7.0) K/uL Lymph # (Auto) (1.0-4.3) K/uL Stewart # (Auto) (0.0-0.8) K/uL Eos # (Auto) (0.0-0.7) K/uL Baso # (Auto) (0.0-0.2) K/uL Puncture Site pCO2 (35-45) mm/Hg pO2 29 L (30-55) mm/Hg HCO3 (21-28) mmol/L ABG pH (7.35-7.45) ABG Total CO2 (22-28) mmol/L ABG O2 Saturation (95-98) % ABG Base Excess (-2.0-3.0) mmol/L ABG Hemoglobin (11.7-17.4) g/dL ABG Carboxyhemoglobin (0.5-1.5) % POC ABG HHb (Measured) (0.0-5.0) % ABG Methemoglobin (0.0-3.0) % Ron Test VBG pH 7.39 (7.32-7.43) VBG pCO2 48 (40-60) mmHg VBG HCO3 26.3 mmol/L VBG Total CO2 30.6 H (22-28) mmol/L VBG O2 Sat (Calc) 56.3 (40-65) % VBG Base Excess 3.3 H (0.0-2.0) mmol/L VBG Potassium 4.2 (3.6-5.2) mmol/L A-a O2 Difference mm/Hg Respiratory Index Hgb O2 Saturation (95.0-98.0) % Glucose 101 (75-110) mg/dl Lactate 1.5 (0.7-2.1) mmol/L Vent Mode Mechanical Rate FiO2 % Inspiratory BiPAP Expiratory BiPAP Sodium 138.0 (132-148) mmol/L Potassium (3.6-5.2) mmol/L Chloride 105.0 (98-107) mmol/L Carbon Dioxide (22-30) mmol/L Anion Gap (10-20) BUN (9-20) mg/dL Creatinine (0.8-1.5) mg/dL Est GFR ( Amer) Est GFR (Non-Af Amer) POC Glucose (mg/dL) (65-110) mg/dL Random Glucose (75-110) mg/dL Calcium (8.6-10.4) mg/dl Phosphorus (2.5-4.5) mg/dL Magnesium (1.6-2.3) mg/dL Total Bilirubin (0.2-1.3) mg/dL AST (17-59) U/L ALT (21-72) U/L Alkaline Phosphatase (38-126) U/L Troponin I (0.00-0.120) ng/mL NT-Pro-B Natriuret Pep 1540 H (0-900) pg/mL Total Protein (6.3-8.3) g/dL Albumin (3.5-5.0) g/dL Globulin (2.2-3.9) gm/dL Albumin/Globulin Ratio (1.0-2.1) Venous Blood Potassium 4.2 (3.6-5.2) mmol/L Urine Color Yellow (YELLOW) Urine Clarity Hazy (Clear) Urine pH 6.0 (5.0-8.0) Ur Specific [place] 1.011 (1.003-1.030) Urine Protein Negative (NEGATIVE) mg/dL Urine Glucose (UA) Normal (Normal) mg/dL Urine Ketones Negative (NEGATIVE) mg/dL Urine Blood 2+ H (NEGATIVE) Urine Nitrate Negative (NEGATIVE) Urine Bilirubin Negative (NEGATIVE) Urine Urobilinogen Normal (0.2-1.0) mg/dL Ur Leukocyte Esterase Neg (Negative) Xiao/uL Urine WBC (Auto) < 1 (0-5) /hpf Urine RBC (Auto) 15 H (0-3) /hpf Urine Bacteria Rare (<OCC) Urine Opiates Screen (NEGATIVE) Urine Methadone Screen (NEGATIVE) Ur Barbiturates Screen (NEGATIVE) Ur Phencyclidine Scrn (NEGATIVE) Ur Amphetamines Screen (NEGATIVE) U Benzodiazepines Scrn (NEGATIVE) U Oth Cocaine Metabols (NEGATIVE) U Cannabinoids Screen (NEGATIVE) Influenza Typ A,B (EIA) (NEGATIVE) 07/08/18 07/08/18 07/08/18 Range/Units 17:35 17:09 16:57 WBC (4.8-10.8) K/uL RBC (4.40-5.90) Mil/uL Hgb (12.0-18.0) g/dL Hct (35.0-51.0) % MCV (80.0-94.0) fL MCH (27.0-31.0) pg MCHC (33.0-37.0) g/dL RDW (11.5-14.5) % Plt Count (130-400) K/uL MPV (7.2-11.7) fL Neut % (Auto) (50.0-75.0) % Lymph % (Auto) (20.0-40.0) % Stewart % (Auto) (0.0-10.0) % Eos % (Auto) (0.0-4.0) % Baso % (Auto) (0.0-2.0) % Neut # (Auto) (1.8-7.0) K/uL Lymph # (Auto) (1.0-4.3) K/uL Stewart # (Auto) (0.0-0.8) K/uL Eos # (Auto) (0.0-0.7) K/uL Baso # (Auto) (0.0-0.2) K/uL Puncture Site pCO2 (35-45) mm/Hg pO2 19 L (30-55) mm/Hg HCO3 (21-28) mmol/L ABG pH (7.35-7.45) ABG Total CO2 (22-28) mmol/L ABG O2 Saturation (95-98) % ABG Base Excess (-2.0-3.0) mmol/L ABG Hemoglobin (11.7-17.4) g/dL ABG Carboxyhemoglobin (0.5-1.5) % POC ABG HHb (Measured) (0.0-5.0) % ABG Methemoglobin (0.0-3.0) % Ron Test VBG pH 7.43 (7.32-7.43) VBG pCO2 51 (40-60) mmHg VBG HCO3 29.4 mmol/L VBG Total CO2 35.5 H (22-28) mmol/L VBG O2 Sat (Calc) 28.3 L (40-65) % VBG Base Excess 8.0 H (0.0-2.0) mmol/L VBG Potassium 4.5 (3.6-5.2) mmol/L A-a O2 Difference mm/Hg Respiratory Index Hgb O2 Saturation (95.0-98.0) % Glucose 129 H (75-110) mg/dl Lactate 1.4 (0.7-2.1) mmol/L Vent Mode Mechanical Rate FiO2 % Inspiratory BiPAP Expiratory BiPAP Sodium 138.0 137 (132-148) mmol/L Potassium 4.7 (3.6-5.2) mmol/L Chloride 104.0 96 L (98-107) mmol/L Carbon Dioxide 32 H (22-30) mmol/L Anion Gap 14 (10-20) BUN 9 (9-20) mg/dL Creatinine 0.7 L (0.8-1.5) mg/dL Est GFR ( Amer) > 60 Est GFR (Non-Af Amer) > 60 POC Glucose (mg/dL) (65-110) mg/dL Random Glucose 136 H (75-110) mg/dL Calcium 8.8 (8.6-10.4) mg/dl Phosphorus 3.7 (2.5-4.5) mg/dL Magnesium 2.1 (1.6-2.3) mg/dL Total Bilirubin 0.4 (0.2-1.3) mg/dL AST 44 (17-59) U/L ALT 6 L (21-72) U/L Alkaline Phosphatase 72 (38-126) U/L Troponin I 0.0270 (0.00-0.120) ng/mL NT-Pro-B Natriuret Pep (0-900) pg/mL Total Protein 10.0 H (6.3-8.3) g/dL Albumin 3.6 (3.5-5.0) g/dL Globulin 6.5 H (2.2-3.9) gm/dL Albumin/Globulin Ratio 0.5 L (1.0-2.1) Venous Blood Potassium 4.5 (3.6-5.2) mmol/L Urine Color (YELLOW) Urine Clarity (Clear) Urine pH (5.0-8.0) Ur Specific [place] (1.003-1.030) Urine Protein (NEGATIVE) mg/dL Urine Glucose (UA) (Normal) mg/dL Urine Ketones (NEGATIVE) mg/dL Urine Blood (NEGATIVE) Urine Nitrate (NEGATIVE) Urine Bilirubin (NEGATIVE) Urine Urobilinogen (0.2-1.0) mg/dL Ur Leukocyte Esterase (Negative) Xiao/uL Urine WBC (Auto) (0-5) /hpf Urine RBC (Auto) (0-3) /hpf Urine Bacteria (<OCC) Urine Opiates Screen (NEGATIVE) Urine Methadone Screen (NEGATIVE) Ur Barbiturates Screen (NEGATIVE) Ur Phencyclidine Scrn (NEGATIVE) Ur Amphetamines Screen (NEGATIVE) U Benzodiazepines Scrn (NEGATIVE) U Oth Cocaine Metabols (NEGATIVE) U Cannabinoids Screen (NEGATIVE) Influenza Typ A,B (EIA) Negative for flu a/b (NEGATIVE) 07/08/18 Range/Units 16:57 WBC 12.1 H (4.8-10.8) K/uL RBC 4.16 L (4.40-5.90) Mil/uL Hgb 13.7 (12.0-18.0) g/dL Hct 40.3 (35.0-51.0) % MCV 97.1 H (80.0-94.0) fL MCH 32.9 H (27.0-31.0) pg MCHC 33.9 (33.0-37.0) g/dL RDW 14.7 H (11.5-14.5) % Plt Count 319 (130-400) K/uL MPV 8.6 (7.2-11.7) fL Neut % (Auto) 82.5 H (50.0-75.0) % Lymph % (Auto) 11.2 L (20.0-40.0) % Stewart % (Auto) 5.1 (0.0-10.0) % Eos % (Auto) 0.6 (0.0-4.0) % Baso % (Auto) 0.6 (0.0-2.0) % Neut # (Auto) 10.0 H (1.8-7.0) K/uL Lymph # (Auto) 1.4 (1.0-4.3) K/uL Stewart # (Auto) 0.6 (0.0-0.8) K/uL Eos # (Auto) 0.1 (0.0-0.7) K/uL Baso # (Auto) 0.1 (0.0-0.2) K/uL Puncture Site pCO2 (35-45) mm/Hg pO2 (30-55) mm/Hg HCO3 (21-28) mmol/L ABG pH (7.35-7.45) ABG Total CO2 (22-28) mmol/L ABG O2 Saturation (95-98) % ABG Base Excess (-2.0-3.0) mmol/L ABG Hemoglobin (11.7-17.4) g/dL ABG Carboxyhemoglobin (0.5-1.5) % POC ABG HHb (Measured) (0.0-5.0) % ABG Methemoglobin (0.0-3.0) % Ron Test VBG pH (7.32-7.43) VBG pCO2 (40-60) mmHg VBG HCO3 mmol/L VBG Total CO2 (22-28) mmol/L VBG O2 Sat (Calc) (40-65) % VBG Base Excess (0.0-2.0) mmol/L VBG Potassium (3.6-5.2) mmol/L A-a O2 Difference mm/Hg Respiratory Index Hgb O2 Saturation (95.0-98.0) % Glucose (75-110) mg/dl Lactate (0.7-2.1) mmol/L Vent Mode Mechanical Rate FiO2 % Inspiratory BiPAP Expiratory BiPAP Sodium (132-148) mmol/L Potassium (3.6-5.2) mmol/L Chloride (98-107) mmol/L Carbon Dioxide (22-30) mmol/L Anion Gap (10-20) BUN (9-20) mg/dL Creatinine (0.8-1.5) mg/dL Est GFR ( Amer) Est GFR (Non-Af Amer) POC Glucose (mg/dL) (65-110) mg/dL Random Glucose (75-110) mg/dL Calcium (8.6-10.4) mg/dl Phosphorus (2.5-4.5) mg/dL Magnesium (1.6-2.3) mg/dL Total Bilirubin (0.2-1.3) mg/dL AST (17-59) U/L ALT (21-72) U/L Alkaline Phosphatase (38-126) U/L Troponin I (0.00-0.120) ng/mL NT-Pro-B Natriuret Pep (0-900) pg/mL Total Protein (6.3-8.3) g/dL Albumin (3.5-5.0) g/dL Globulin (2.2-3.9) gm/dL Albumin/Globulin Ratio (1.0-2.1) Venous Blood Potassium (3.6-5.2) mmol/L Urine Color (YELLOW) Urine Clarity (Clear) Urine pH (5.0-8.0) Ur Specific [place] (1.003-1.030) Urine Protein (NEGATIVE) mg/dL Urine Glucose (UA) (Normal) mg/dL Urine Ketones (NEGATIVE) mg/dL Urine Blood (NEGATIVE) Urine Nitrate (NEGATIVE) Urine Bilirubin (NEGATIVE) Urine Urobilinogen (0.2-1.0) mg/dL Ur Leukocyte Esterase (Negative) Xiao/uL Urine WBC (Auto) (0-5) /hpf Urine RBC (Auto) (0-3) /hpf Urine Bacteria (<OCC) Urine Opiates Screen (NEGATIVE) Urine Methadone Screen (NEGATIVE) Ur Barbiturates Screen (NEGATIVE) Ur Phencyclidine Scrn (NEGATIVE) Ur Amphetamines Screen (NEGATIVE) U Benzodiazepines Scrn (NEGATIVE) U Oth Cocaine Metabols (NEGATIVE) U Cannabinoids Screen (NEGATIVE) Influenza Typ A,B (EIA) (NEGATIVE) Laboratory Results - last 24 hr 07/08/18 07/08/18 07/08/18 16:57 16:57 17:09 WBC 12.1 H RBC 4.16 L Hgb 13.7 Hct 40.3 MCV 97.1 H MCH 32.9 H MCHC 33.9 RDW 14.7 H Plt Count 319 MPV 8.6 Neut % (Auto) 82.5 H Lymph % (Auto) 11.2 L Stewart % (Auto) 5.1 Eos % (Auto) 0.6 Baso % (Auto) 0.6 Neut # (Auto) 10.0 H Lymph # (Auto) 1.4 Stewart # (Auto) 0.6 Eos # (Auto) 0.1 Baso # (Auto) 0.1 Puncture Site pCO2 pO2 19 L HCO3 ABG pH ABG Total CO2 ABG O2 Saturation ABG Base Excess ABG Hemoglobin ABG Carboxyhemoglobin POC ABG HHb (Measured) ABG Methemoglobin Ron Test VBG pH 7.43 VBG pCO2 51 VBG HCO3 29.4 VBG Total CO2 35.5 H VBG O2 Sat (Calc) 28.3 L VBG Base Excess 8.0 H VBG Potassium 4.5 A-a O2 Difference Respiratory Index Hgb O2 Saturation Glucose 129 H Lactate 1.4 Vent Mode Mechanical Rate FiO2 Inspiratory BiPAP Expiratory BiPAP Sodium 137 138.0 Potassium 4.7 Chloride 96 L 104.0 Carbon Dioxide 32 H Anion Gap 14 BUN 9 Creatinine 0.7 L Est GFR ( Amer) > 60 Est GFR (Non-Af Amer) > 60 POC Glucose (mg/dL) Random Glucose 136 H Calcium 8.8 Phosphorus 3.7 Magnesium 2.1 Total Bilirubin 0.4 AST 44 ALT 6 L Alkaline Phosphatase 72 Troponin I 0.0270 NT-Pro-B Natriuret Pep Total Protein 10.0 H Albumin 3.6 Globulin 6.5 H Albumin/Globulin Ratio 0.5 L Venous Blood Potassium 4.5 Urine Color Urine Clarity Urine pH Ur Specific [place] Urine Protein Urine Glucose (UA) Urine Ketones Urine Blood Urine Nitrate Urine Bilirubin Urine Urobilinogen Ur Leukocyte Esterase Urine WBC (Auto) Urine RBC (Auto) Urine Bacteria Urine Opiates Screen Urine Methadone Screen Ur Barbiturates Screen Ur Phencyclidine Scrn Ur Amphetamines Screen U Benzodiazepines Scrn U Oth Cocaine Metabols U Cannabinoids Screen Influenza Typ A,B (EIA) 07/08/18 07/08/18 07/08/18 17:35 18:19 18:25 WBC RBC Hgb Hct MCV MCH MCHC RDW Plt Count MPV Neut % (Auto) Lymph % (Auto) Stewart % (Auto) Eos % (Auto) Baso % (Auto) Neut # (Auto) Lymph # (Auto) Stewart # (Auto) Eos # (Auto) Baso # (Auto) Puncture Site pCO2 pO2 29 L HCO3 ABG pH ABG Total CO2 ABG O2 Saturation ABG Base Excess ABG Hemoglobin ABG Carboxyhemoglobin POC ABG HHb (Measured) ABG Methemoglobin Ron Test VBG pH 7.39 VBG pCO2 48 VBG HCO3 26.3 VBG Total CO2 30.6 H VBG O2 Sat (Calc) 56.3 VBG Base Excess 3.3 H VBG Potassium 4.2 A-a O2 Difference Respiratory Index Hgb O2 Saturation Glucose 101 Lactate 1.5 Vent Mode Mechanical Rate FiO2 Inspiratory BiPAP Expiratory BiPAP Sodium 138.0 Potassium Chloride 105.0 Carbon Dioxide Anion Gap BUN Creatinine Est GFR ( Amer) Est GFR (Non-Af Amer) POC Glucose (mg/dL) Random Glucose Calcium Phosphorus Magnesium Total Bilirubin AST ALT Alkaline Phosphatase Troponin I NT-Pro-B Natriuret Pep 1540 H Total Protein Albumin Globulin Albumin/Globulin Ratio Venous Blood Potassium 4.2 Urine Color Urine Clarity Urine pH Ur Specific [place] Urine Protein Urine Glucose (UA) Urine Ketones Urine Blood Urine Nitrate Urine Bilirubin Urine Urobilinogen Ur Leukocyte Esterase Urine WBC (Auto) Urine RBC (Auto) Urine Bacteria Urine Opiates Screen Urine Methadone Screen Ur Barbiturates Screen Ur Phencyclidine Scrn Ur Amphetamines Screen U Benzodiazepines Scrn U Oth Cocaine Metabols U Cannabinoids Screen Influenza Typ A,B (EIA) Negative for flu a/b 07/08/18 07/08/18 07/08/18 21:42 23:00 23:51 WBC RBC Hgb Hct MCV MCH MCHC RDW Plt Count MPV Neut % (Auto) Lymph % (Auto) Stewart % (Auto) Eos % (Auto) Baso % (Auto) Neut # (Auto) Lymph # (Auto) Stewart # (Auto) Eos # (Auto) Baso # (Auto) Puncture Site Rradial pCO2 43 pO2 206 H HCO3 24.9 ABG pH 7.38 ABG Total CO2 26.7 ABG O2 Saturation 98.6 H ABG Base Excess 0 ABG Hemoglobin 14.5 ABG Carboxyhemoglobin 1.1 POC ABG HHb (Measured) 1.4 ABG Methemoglobin 0.9 Ron Test Pos VBG pH VBG pCO2 VBG HCO3 VBG Total CO2 VBG O2 Sat (Calc) VBG Base Excess VBG Potassium A-a O2 Difference 25.0 Respiratory Index 0.1 Hgb O2 Saturation 96.6 Glucose Lactate Vent Mode Bipap Mechanical Rate 12 FiO2 40.0 Inspiratory BiPAP 12 Expiratory BiPAP 6 Sodium Potassium Chloride Carbon Dioxide Anion Gap BUN Creatinine Est GFR ( Amer) Est GFR (Non-Af Amer) POC Glucose (mg/dL) Random Glucose Calcium Phosphorus Magnesium Total Bilirubin AST ALT Alkaline Phosphatase Troponin I NT-Pro-B Natriuret Pep Total Protein Albumin Globulin Albumin/Globulin Ratio Venous Blood Potassium Urine Color Yellow Urine Clarity Hazy Urine pH 6.0 Ur Specific [place] 1.011 Urine Protein Negative Urine Glucose (UA) Normal Urine Ketones Negative Urine Blood 2+ H Urine Nitrate Negative Urine Bilirubin Negative Urine Urobilinogen Normal Ur Leukocyte Esterase Neg Urine WBC (Auto) < 1 Urine RBC (Auto) 15 H Urine Bacteria Rare Urine Opiates Screen Negative Urine Methadone Screen Negative Ur Barbiturates Screen Negative Ur Phencyclidine Scrn Negative Ur Amphetamines Screen Negative U Benzodiazepines Scrn Negative U Oth Cocaine Metabols Negative U Cannabinoids Screen Negative Influenza Typ A,B (EIA) 07/09/18 00:22 WBC RBC Hgb Hct MCV MCH MCHC RDW Plt Count MPV Neut % (Auto) Lymph % (Auto) Stewart % (Auto) Eos % (Auto) Baso % (Auto) Neut # (Auto) Lymph # (Auto) Stewart # (Auto) Eos # (Auto) Baso # (Auto) Puncture Site pCO2 pO2 HCO3 ABG pH ABG Total CO2 ABG O2 Saturation ABG Base Excess ABG Hemoglobin ABG Carboxyhemoglobin POC ABG HHb (Measured) ABG Methemoglobin Ron Test VBG pH VBG pCO2 VBG HCO3 VBG Total CO2 VBG O2 Sat (Calc) VBG Base Excess VBG Potassium A-a O2 Difference Respiratory Index Hgb O2 Saturation Glucose Lactate Vent Mode Mechanical Rate FiO2 Inspiratory BiPAP Expiratory BiPAP Sodium Potassium Chloride Carbon Dioxide Anion Gap BUN Creatinine Est GFR ( Amer) Est GFR (Non-Af Amer) POC Glucose (mg/dL) 203 H Random Glucose Calcium Phosphorus Magnesium Total Bilirubin AST ALT Alkaline Phosphatase Troponin I NT-Pro-B Natriuret Pep Total Protein Albumin Globulin Albumin/Globulin Ratio Venous Blood Potassium Urine Color Urine Clarity Urine pH Ur Specific [place] Urine Protein Urine Glucose (UA) Urine Ketones Urine Blood Urine Nitrate Urine Bilirubin Urine Urobilinogen Ur Leukocyte Esterase Urine WBC (Auto) Urine RBC (Auto) Urine Bacteria Urine Opiates Screen Urine Methadone Screen Ur Barbiturates Screen Ur Phencyclidine Scrn Ur Amphetamines Screen U Benzodiazepines Scrn U Oth Cocaine Metabols U Cannabinoids Screen Influenza Typ A,B (EIA) EKG/Cardiology Studies: Cardiology / EKG Studies 07/08/18 16:33 EKG [ELECTROCARDIOGRAM] Stat Comment: Mode Of Transportation: Reason For Exam: syncope Fingerstick Blood Sugar Results: 203 Review of Systems - Constitutional Constitutional: absent: Fever, Chills, Sweats, Weakness, Malaise - Cardiovascular Cardiovascular: absent: Chest Pain, Chest Pain at Rest, Chest Pain with Activity, Claudication, Diaphoresis, Leg Edema - Respiratory Respiratory: Cough, Dyspnea, Dyspnea on Exertion, Wheezing. absent: Hemoptysis, Snoring, Stridor, Chest Congestion, Excessive Mucous Production, Change in Mucous Color Critical Care Progress Note - Extremities/Vascular Does the Patient have a Central Venous Catheter?: No Does the Patient need a Central Venous Catheter?: No Does the Patient have a Cunningham Catheter?: No Does the Patient need a Cunningham Catheter?: No - Nutrition Nutrition: Nutrition Category Date Time Status Liquid Diet [DIET] Diets 07/09/18 Breakfast Active Assessment/Plan (1) Chronic respiratory failure with hypoxia Current Visit: Yes Status: Acute Priority: High
[2018-07-09] MEDS ORDERED: MethylPREDNISolone 40 mg Vial ONE ×2 (00:48→06:19)
[2018-07-09] MEDS ORDERED: Albuterol-Ipratrop 3 mg / 0.5 (3 ml) UD ONE ×4 (01:01→20:07)
[2018-07-09] MEDS: Albuterol-Ipratrop 3 mg / 0.5 (3 ml) UD INH SCH ×4 (01:03→20:00)
[2018-07-09 04:44] LABS: BASO % 0.3 % (0.0-2.0); HEMOGLOBIN 13.9 g/dL (12.0-18.0); LYMPH # 0.6 K/uL (1.0-4.3); LYMPH % 8.4 % (20.0-40.0); MEAN CELL VOLUME 98.8 fL (80.0-94.0); MEAN CORPUSCULAR HEMOGLOBIN 32.6 pg (27.0-31.0); MEAN PLATELET VOLUME 8.7 fL (7.2-11.7); MONO % 0.7 % (0.0-10.0); NEUT # 6.2 K/uL (1.8-7.0); NEUT % 90.6 % (50.0-75.0); PLATELET COUNT 300 K/uL (130-400); RBC 4.26 Mil/uL (4.40-5.90); RED CELL DISTRIBUTION WIDTH 14.9 % (11.5-14.5); WHITE BLOOD COUNT 6.9 K/uL (4.8-10.8)
[2018-07-09 05:00] LABS: ALB/GLOB RATIO 0.6 (1.0-2.1); ALBUMIN 3.5 g/dL (3.5-5.0); ALT/SGPT 9 U/L (21-72); AST/SGOT 38 U/L (17-59); BLOOD UREA NITROGEN 14 mg/dL (9-20); CALCIUM 8.7 mg/dl (8.6-10.4); GFR NON-AFRICAN AMERICAN > 60
[2018-07-09 05:54] LABS: LYMPHOCYTE 9 % (20-40); MONOCYTE 3 % (0-10); NEUTROPHIL 88 % (50-75); PLATELET ESTIMATE NORMAL (NORMAL); TOTAL CELLS COUNTED 100
[2018-07-09] MEDS: MethylPREDNISolone 40 mg Vial IVP SCH ×2 (06:20→17:55)
--- NOTE | 2018-07-09 07:38 | CP.PCM.PN ---
<Brandie Varela - Last Filed: 07/09/18 19:52> Subjective - Date & Time of Evaluation Date of Evaluation: 07/09/18 Time of Evaluation: 07:45 - Subjective Subjective: PGY-1 Brandie Varela D.O. Medicine progress note for Dr. Wellington's service: Patient was seen and examined this morning. He is in the isolation room of ED. He is utilizing BiPap. He is not in apparent respiratory distress. He states he feels horrible. He reports SOB and significant cough with thick sputum. He also complains of diffuse anterior torso pain and b/l flank pain. He also endorses dysuria. He states he lives alone and has no family or friends in the [place]. He quit smoking 1 month ago. He has been progressively getting sicker over the past 15 days. He feels lightheaded while walking and becomes more SOB with exertion. Objective - Vital Signs/Intake and Output Vital Signs (last 24 hours): Temp Pulse Resp BP Pulse Ox 98.3 F 65 17 115/75 98 07/08/18 20:43 07/09/18 06:37 07/09/18 06:14 07/09/18 06:14 07/09/18 06:14 - Medications Medications: Current Medications Albuterol/Ipratropium (Duoneb 3 Mg/0.5 Mg (3 Ml) Ud) 3 ml INH RQ6 [facility] Last Admin: 07/09/18 01:03 Dose: 3 ml Dextrose (Dextrose 50% Inj) 0 ml IV STAT PRN; Protocol PRN Reason: Hypoglycemia Protocol Dextrose (Glutose 15) 0 gm PO ONCE PRN; Protocol PRN Reason: Hypoglycemia Protocol Glucagon (Glucagen Diagnostic Kit) 0 mg IM STAT PRN; Protocol PRN Reason: Hypoglycemia Protocol Heparin Sodium (Porcine) (Heparin) 5,000 units SC Q12 [facility] Dextrose (Dextrose 5% In Water 1000 Ml) 1,000 mls @ 0 mls/hr IV .Q0M PRN; Protocol PRN Reason: Hypoglycemia Protocol Azithromycin 500 mg/ Sodium (Chloride) 250 mls @ 250 mls/hr IVPB DAILY [facility]; Protocol Ceftriaxone Sodium 1 gm/ (Sodium Chloride) 100 mls @ 100 mls/hr IVPB DAILY [facility]; Protocol Insulin Human Regular (Novolin R) 0 unit SC ACHS [facility]ED[facility]; Protocol Methylprednisolone (Solu-Medrol) 60 mg IVP Q8 [facility] Last Admin: 07/09/18 06:20 Dose: 60 mg Pantoprazole Sodium (Protonix Inj) 40 mg IVP DAILY [facility] - Labs Labs: 07/09/18 04:36 07/09/18 04:36 - Constitutional Appears: No Acute Distress - Head Exam Head Exam: ATRAUMATIC, NORMAL INSPECTION - Eye Exam Eye Exam: EOMI, Normal appearance, PERRL - ENT Exam ENT Exam: Mucous Membranes Moist - Neck Exam Neck Exam: Normal Inspection - Respiratory Exam Respiratory Exam: Chest Wall Tenderness, Rales, Rhonchi, Wheezes, NORMAL BREATHING PATTERN. absent: Accessory Muscle Use, Stridor - Cardiovascular Exam Cardiovascular Exam: REGULAR RHYTHM, +S1, +S2 - GI/Abdominal Exam GI & Abdominal Exam: Tenderness, Normal Bowel Sounds, Pulsatile Mass. absent: Firm, Guarding - Rectal Exam Rectal Exam: Deferred - Extremities Exam Extremities Exam: Normal Inspection. absent: Pedal Edema - Back Exam Back Exam: CVA tenderness (L), CVA tenderness (R), NORMAL INSPECTION - Neurological Exam Neurological Exam: Alert, Awake, CN II-XII Intact, Oriented x3 Neuro motor strength exam: Left Upper Extremity: 5, Right Upper Extremity: 5, Left Lower Extremity: 5, Right Lower Extremity: 5 - Psychiatric Exam Psychiatric exam: Normal Affect, Normal Mood - Skin Skin Exam: Dry, Intact, Normal Color, Warm Assessment and Plan - Assessment and Plan (Free Text) Assessment: Patient is a 63 yo [place] male with a history of pre-DM and hypotension not on any meds who presented to ED with SOB, cough, and weakness. Patient has a sig nificant smoking history- 20 pk yrs and quit 1 month ago. 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 Imaging shows extensive interstitial pulmonary disease. Patient is requiring intermittent BiPAP. Patient in airborne isolation until r/o TB. Plan: Respiratory distress- suspect interstitial lung disease due to smoking and/or exposures, r/o cancer, r/o TB (homeless, from [place], no BCG vaccine) - Airborne isolation - BiPAP PRN - CT head: no acute findings - CTA head/neck: no significant stenoses or abnormalities - CXR: peripheral interstitial and to lesser extent confluent changes bilaterally likely chronic in nature - CT chest: Findings consistent with diffuse significant interstitial fibrosis with what probably represents paraseptal emphysematous changes and bronchiectasis. There are scattered areas of confluent and ground-glass opa cities. Calcified granuloma right lung base. There are mildly enlarged paratracheal and subcarinal lymph nodes - UDS negative - VBG on admission: pH 7.39, - ABG after 1 hr BiPAP: pH 7.38, - PPD placed - Quantiferon pending - HIV negative - Rapid flu negative - ProBNP 1540 - LDH eleated 778 - Blood Cx no growth >24 hrs - Sputum Cx pending - Echo pending - Duoneb Q4H SPEEDY - Solumedrol 60mg IVP Q6H - Azithro 500 mg IVPB daily- started 07/09 - Ceftriaxone 1 g IVPB daily- started 07/09 - ICU consulted- does not require critical care at this time - Pulmonology consulted ([facility]) H/o pre-diabetes mellitus - A1c 5.5 - Hypoglycemic protocol - Accuchecks ACHS with ISS Pulsating abdominal mass - F/u abd u/s - CT A/P: Question enlargement of the pancreatic head/uncinate process. It is unclear if this finding is the results of edematous pancreas/mass or collapsed adjacent duodenum which is difficult to distinguish. Recommend follow-up pancreatic CT for further assessment. 2.1 x 2.9 x 3.6 cm aneurysmal dilatation of the distal aorta. Moderate con stipation. - Hepatitis panel negative Dysuria and flank pain - UA: 2+ blood, 15 RBC - CT A/P: Question enlargement of the pancreatic head/uncinate process. It is unclear if this finding is the results of edematous pancreas/mass or collapsed adjacent duodenum which is difficult to distinguish. Recommend follow-up pancreatic CT for further assessment. 2.1 x 2.9 x 3.6 cm aneurysmal dilatation of the distal aorta. Moderate constipation. Ppx: VTE: SCDs, heparin 5000 units Q8H GI: PTX 40 mg PO daily Code status: full code Case was discussed with attending, Dr. Wellington <David Wellington - Last Filed: 07/10/18 07:41> Objective - Vital Signs/Intake and Output Vital Signs (last 24 hours): Temp Pulse Resp BP Pulse Ox 97.9 F 83 20 117/65 99 07/09/18 23:40 07/10/18 03:47 07/09/18 23:40 07/09/18 23:40 07/09/18 23:40 - Medications Medications: Current Medications Acetaminophen (Tylenol 325mg Tab) 650 mg PO Q6 PRN PRN Reason: Pain, Mild (1-3) Last Admin: 07/09/18 12:03 Dose: 650 mg Albuterol/Ipratropium (Duoneb 3 Mg/0.5 Mg (3 Ml) Ud) 3 ml INH RQ4 [facility] Last Admin: 07/10/18 04:32 Dose: Not Given Budesonide (Pulmicort Respules) 0.5 mg INH RQ12 [facility] Last Admin: 07/09/18 20:55 Dose: Not Given Dextrose (Dextrose 50% Inj) 0 ml IV STAT PRN; Protocol PRN Reason: Hypoglycemia Protocol Dextrose (Glutose 15) 0 gm PO ONCE PRN; Protocol PRN Reason: Hypoglycemia Protocol Glucagon (Glucagen Diagnostic Kit) 0 mg IM STAT PRN; Protocol PRN Reason: Hypoglycemia Protocol Heparin Sodium (Porcine) (Heparin) 5,000 units SC Q12 [facility] Last Admin: 07/09/18 22:26 Dose: 5,000 units Dextrose (Dextrose 5% In Water 1000 Ml) 1,000 mls @ 0 mls/hr IV .Q0M PRN; Protocol PRN Reason: Hypoglycemia Protocol Azithromycin 500 mg/ Sodium (Chloride) 250 mls @ 250 mls/hr IVPB DAILY [facility]; Protocol Last Admin: 07/09/18 12:03 Dose: 250 mls/hr Ceftriaxone Sodium 1 gm/ (Sodium Chloride) 100 mls @ 100 mls/hr IVPB DAILY [facility]; Protocol Last Admin: 07/09/18 09:55 Dose: 100 mls/hr Ibuprofen (Motrin Tab) 600 mg PO TID PRN PRN Reason: Pain, moderate (4-7) Influenza Virus Vaccine (Fluzone Quad [id number]) 60 mcg IM .ONCE ONE Stop: 07/11/18 14:01 Insulin Human Regular (Novolin R) 0 unit SC ACHS [facility]; Protocol Last Admin: 07/09/18 22:25 Dose: Not Given Methylprednisolone (Solu-Medrol) 60 mg IVP Q6 [facility] Last Admin: 07/10/18 05:22 Dose: 60 mg Pantoprazole Sodium (Protonix Inj) 40 mg IVP DAILY [facility] Last Admin: 07/09/18 09:55 Dose: 40 mg Pneumococcal Polyvalent Vaccine (Pneumovax 23 Vaccine) 0.5 ml IM .ONCE ONE Stop: 07/11/18 14:01 Tramadol HCl (Ultram) 25 mg PO TID PRN PRN Reason: Pain, severe (8-10) - Labs Labs: 07/09/18 04:36 07/09/18 04:36 Attending/Attestation - Attestation I have personally seen and examined this patient.: Yes I have fully participated in the care of the patient.: Yes I have reviewed all pertinent clinical information, including history, physical exam and plan: Yes Notes (Text): 07/10/18 07:37 Medical attending: Patient was seen and examined by me. Agree with the above note - the patient was in isloation room in the ER. He reported feeling ok at rest - however as previously documented - light extertion causes him to become acute short of breath. 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 The patient reported feeling better with the medications so far. We increased the frequency of the solumedrol and nebulizer treatments, added pulmicort. Review of the CT shows concerning findings for interstitial lung disease as well as possibility of infection as well. There were some lymph nodes on the CT of chest report that were enlarged. He is on IV abx for the time being Also he reports weightloss as well - we will get imaging of the abdomen and pelvis in case there could be an underlying malignancy An echo has been ordered as he may very well have right side heart failure or PHTN David Wellington
[2018-07-09] MEDS: (Novolin R) Insulin Human Regular 100 units/ml vial SC SCH ×4 (07:40→22:25)
[2018-07-09] MEDS ORDERED: Enoxaparin 40 mg Syringe SC SCH (10:00)
--- NOTE | 2018-07-09 10:14 | CT ---
Date of service: 07/08/2018 PROCEDURE: CT Chest without contrast HISTORY: Interstitial infiltrates on chest radiograph, cough, fever COMPARISON: None available. TECHNIQUE: Contiguous axial images were obtained through the chest without intravenous contrast enhancement. Sagittal and coronal reconstructions were performed. Radiation dose: Total exam DLP = 203.96 mGy-cm. This CT exam was performed using one or more of the following dose reduction techniques: Automated exposure control, adjustment of the mA and/or kV according to patient size, and/or use of iterative reconstruction technique. FINDINGS: LUNGS: Fairly significant diffuse interstitial fibrosis with areas of bronchiectasis throughout the upper and lower lobes. Additionally, there are also concomitant scattered areas confluent and ground-glass opacities. Elliptical shaped calcified granuloma within the lateral sulcus right lung base MEDIASTINUM: Heart size is mildly enlarged. No significant pericardial effusion. Ascending thoracic aorta measures approximately 3.4 cm and descending thoracic aorta measures approximately 2.9 cm. Pulmonary trunk measures approximately 2.9 cm. Mild thoracic aortic calcified atherosclerotic plaque present.. Pulmonary artery unremarkable. Mildly enlarged partially calcified paratracheal and subcarinal lymph nodes. Nonspecific partially calcified mediastinal lymph nodes.. Evaluation for hilar adenopathy limited due to lack of circulating intravenous contrast materialwall thickening of the distal esophagus which could be due to protrusion gastric mucosa however esophagitis or other intrinsic/invasive wall lesion not excluded. PLEURA: No pleural fluid. No pneumothorax. BONES: Mild multilevel degenerative spondylosis of the of the thoracic spine. No acute compression fractures no retropulsed fragments.. UPPER ABDOMEN: Grossly unremarkable. OTHER FINDINGS: None. IMPRESSION: Findings consistent with diffuse significant interstitial fibrosis with what probably represents paraseptal emphysematous changes and bronchiectasis. There are scattered areas of confluent and ground-glass opacities. Calcified granuloma right lung base. There are mildly enlarged paratracheal and subcarinal lymph nodes Small hiatal hernia with wall thickening of distal esophagus as above.
[2018-07-09 11:40] LABS: HEPATITIS B SURFACE AG Negative (NEGATIVE)
[2018-07-09 11:46] LABS: HEPATITIS A IGM NEGATIVE (NEGATIVE); HEPATITIS B CORE AB NEGATIVE (NEGATIVE)
[2018-07-09 11:58] LABS: HEPATITIS C ANTIBODY NEGATIVE (NEGATIVE)
[2018-07-09] MEDS: Azithromycin 500 MG in Sodium Chloride 0.9% 250 ML IVPB SCH (12:03)
[2018-07-09] MEDS ORDERED: (Novolog) Insulin Aspart, Recombinant 100 u/ml 10 ml vial ONE (13:39)
[2018-07-09] MEDS ORDERED: Iohexol 300 100 ML IJ ONE (16:10)
--- NOTE | 2018-07-09 17:10 | CT ---
PROCEDURE: CT Abdomen and Pelvis without Oral or IV contrast. HISTORY: abd pain COMPARISON: None available. TECHNIQUE: Contiguous axial images of the abdomen and pelvis. No oral or IV contrast administered. Coronal and Sagittal reformats generated and reviewed. Radiation dose: Total exam DLP = by mGy-cm. This CT exam was performed using one or more of the following dose reduction techniques: Automated exposure control, adjustment of the mA and/or kV according to patient size, and/or use of iterative reconstruction technique. FINDINGS: There is limited evaluation of the solid organs without the administration of IV contrast. LOWER THORAX: Diffuse significant interstitial fibrosis with paraseptal emphysematous changes and bronchiectasis. Scattered regions of confluent and ground-glass opacities. Calcified granuloma, right lung base. LIVER: Unremarkable unenhanced appearance. GALLBLADDER AND BILE DUCTS: Unremarkable unenhanced appearance. PANCREAS: Question enlargement of the pancreatic head/uncinate process. It is unclear if this finding is the results of edematous pancreas/mass or collapsed adjacent duodenum which is difficult to distinguish. Recommend follow-up pancreatic CT for further assessment. SPLEEN: Unremarkable unenhanced appearance. ADRENALS: Unremarkable unenhanced appearance. KIDNEYS AND URETERS: No hydronephrosis or obstructing renal calculus. BLADDER: The urinary bladder appears unremarkable. REPRODUCTIVE: Unremarkable. APPENDIX: The appendix appears within normal limits of caliber. No secondary signs of acute appendicitis. BOWEL: The stomach is nondistended. Lack of oral contrast limits evaluation for bowel pathology. The bowel loops appear within normal limits of caliber without evidence of intestinal obstruction. Moderate constipation. PERITONEUM: No significant free fluid. No definite free air. LYMPH NODES: No bulky lymphadenopathy identified. VASCULATURE: 2.1 x 2.9 x 3.6 cm aneurysmal dilation of the distal aorta. Dense atherosclerotic calcification of the aorta and branches. BONES: Osseous demineralization. Degenerative changes. OTHER FINDINGS: Subcutaneous emphysema, right abdomen. IMPRESSION: Question enlargement of the pancreatic head/uncinate process. It is unclear if this finding is the results of edematous pancreas/mass or collapsed adjacent duodenum which is difficult to distinguish. Recommend follow-up pancreatic CT for further assessment. 2.1 x 2.9 x 3.6 cm aneurysmal dilatation of the distal aorta. Moderate constipation. Diffuse significant interstitial fibrosis with paraseptal emphysematous changes and bronchiectasis. Scattered regions of confluent and ground-glass opacities. Calcified granuloma, right lung base. Additional findings as above.
--- NOTE | 2018-07-09 17:18 | CT ---
Date of service: 07/09/2018 PROCEDURE: CT Angiography of the neck and head with contrast HISTORY: headache COMPARISON: None. TECHNIQUE: Contiguous axial images of the neck were obtained from the level of the skull-base to the superior mediastinum in the arteriographic phase of enhancement. Coronal and sagittal reformats or also generated. IV contrast dose: Radiation dose: Total exam DLP = 554.31 mGy-cm. This CT exam was performed using one or more of the following dose reduction techniques: Automated exposure control, adjustment of the mA and/or kV according to patient size, and/or use of iterative reconstruction technique. FINDINGS: RIGHT CAROTID ARTERIES: Common Carotid Artery: Normal. Carotid Bifurcation: Small atherosclerotic calcification noted without evidence of significant stenosis. Internal Carotid Artery:Normal. External Carotid Artery (proximal branches): Normal. LEFT CAROTID ARTERIES: Common Carotid Artery: Normal. Carotid Bifurcation: Small atherosclerotic calcification without evidence of significant stenosis. Internal Carotid Artery:Normal. External Carotid Artery (proximal branches): Normal. VERTEBRAL ARTERIES: Right Vertebral Artery: The right vertebral artery is dominant Left Vertebral Artery: The left vertebral artery is small in size OTHER FINDINGS: no aortic atherosclerotic calcification or mural plaque present. INTERNAL CEREBRAL ARTERIES: Unremarkable. The skull base, petrous, cavernous and supraclinoid segments are bilaterally widely patent. ANTERIOR CEREBRAL ARTERIES: Unremarkable. A1 and A2 segments are widely patent. Smaller distal branches unremarkable, as visualized. MIDDLE CEREBRAL ARTERIES: Unremarkable. M1 and M2 segments are widely patent. Perisylvian branches grossly symmetric. POSTERIOR CIRCULATION: Basilar Artery: Unremarkable. Distal Vertebral Arteries: Unremarkable. Posterior Cerebral Arteries: Unremarkable. Posterior Inferior Cerebellar Arteries: Unremarkable. ANEURYSM/ VASCULAR MALFORMATIONS: None. OTHER FINDINGS: Patchy opacities noted in the right lungs. Bilateral upper lobe bronchiectasis more prominent on the right is also noted. IMPRESSION: Mild atherosclerotic disease and small foci of calcification noted bilaterally at the carotid bifurcation. Small atherosclerotic calcification noted at the aortic arch. No evidence of arterial occlusion or stenosis. Small size left vertebral artery. No evidence of aneurysm or vascular anomaly around the [place] of bullous.
[2018-07-09] MEDS: Budesonide 0.5 mg/2 ml Inhal Susp UD INH SCH (20:55)
[2018-07-10] MEDS: MethylPREDNISolone 40 mg Vial IVP SCH ×4 (00:05→17:29)
[2018-07-10] MEDS: Albuterol-Ipratrop 3 mg / 0.5 (3 ml) UD INH SCH ×7 (00:35→19:59)
--- NOTE | 2018-07-10 06:30 | CP.PCM.PN ---
<Brandie Varela - Last Filed: 07/10/18 21:06> Subjective - Date & Time of Evaluation Date of Evaluation: 07/10/18 Time of Evaluation: 07:20 - Subjective Subjective: PGY-1 Brandie Varela D.O. Medicine progress note for Dr. Wellington's service: Patient was seen and examined this morning. he states he is still feeling very poorly. Specifically, he has generalized weakness, body aches, and SOB that worsens with exertion. Patient is tolerating PO diet adn denies nausea and vomiting. He states he still ahs mild abdominal pain. Patient was able with sleep with nasal cannula. He is mildly tachypniec but without respiratory dis tress. Objective - Vital Signs/Intake and Output Vital Signs (last 24 hours): Temp Pulse Resp BP Pulse Ox 97.9 F 83 20 117/65 99 07/09/18 23:40 07/10/18 03:47 07/09/18 23:40 07/09/18 23:40 07/09/18 23:40 - Medications Medications: Current Medications Acetaminophen (Tylenol 325mg Tab) 650 mg PO Q6 PRN PRN Reason: Pain, Mild (1-3) Last Admin: 07/09/18 12:03 Dose: 650 mg Albuterol/Ipratropium (Duoneb 3 Mg/0.5 Mg (3 Ml) Ud) 3 ml INH RQ4 [facility] Last Admin: 07/10/18 00:35 Dose: 3 ml Budesonide (Pulmicort Respules) 0.5 mg INH RQ12 [facility] Last Admin: 07/09/18 20:55 Dose: Not Given Dextrose (Dextrose 50% Inj) 0 ml IV STAT PRN; Protocol PRN Reason: Hypoglycemia Protocol Dextrose (Glutose 15) 0 gm PO ONCE PRN; Protocol PRN Reason: Hypoglycemia Protocol Glucagon (Glucagen Diagnostic Kit) 0 mg IM STAT PRN; Protocol PRN Reason: Hypoglycemia Protocol Heparin Sodium (Porcine) (Heparin) 5,000 units SC Q12 [facility] Last Admin: 07/09/18 22:26 Dose: 5,000 units Dextrose (Dextrose 5% In Water 1000 Ml) 1,000 mls @ 0 mls/hr IV .Q0M PRN; Protocol PRN Reason: Hypoglycemia Protocol Azithromycin 500 mg/ Sodium (Chloride) 250 mls @ 250 mls/hr IVPB DAILY [facility]; Protocol Last Admin: 07/09/18 12:03 Dose: 250 mls/hr Ceftriaxone Sodium 1 gm/ (Sodium Chloride) 100 mls @ 100 mls/hr IVPB DAILY [facility]; Protocol Last Admin: 07/09/18 09:55 Dose: 100 mls/hr Ibuprofen (Motrin Tab) 600 mg PO TID PRN PRN Reason: Pain, moderate (4-7) Influenza Virus Vaccine (Fluzone Quad [id number]) 60 mcg IM .ONCE ONE Stop: 07/11/18 14:01 Insulin Human Regular (Novolin R) 0 unit SC ACHS [facility]; Protocol Last Admin: 07/09/18 22:25 Dose: Not Given Methylprednisolone (Solu-Medrol) 60 mg IVP Q6 [facility] Last Admin: 07/10/18 05:22 Dose: 60 mg Pantoprazole Sodium (Protonix Inj) 40 mg IVP DAILY [facility] Last Admin: 07/09/18 09:55 Dose: 40 mg Pneumococcal Polyvalent Vaccine (Pneumovax 23 Vaccine) 0.5 ml IM .ONCE ONE Stop: 07/11/18 14:01 Tramadol HCl (Ultram) 25 mg PO TID PRN PRN Reason: Pain, severe (8-10) - Labs Labs: 07/09/18 04:36 07/09/18 04:36 - Constitutional Appears: No Acute Distress, Other (thin) - Head Exam Head Exam: ATRAUMATIC, NORMAL INSPECTION - Eye Exam Eye Exam: EOMI, Normal appearance, PERRL - ENT Exam ENT Exam: Mucous Membranes Moist - Neck Exam Neck Exam: Normal Inspection - Respiratory Exam Respiratory Exam: Chest Wall Tenderness, Decreased Breath Sounds, Rales, Rhonchi, NORMAL BREATHING PATTERN. absent: Accessory Muscle Use, Respiratory Distress - Cardiovascular Exam Cardiovascular Exam: REGULAR RHYTHM, +S1, +S2 - GI/Abdominal Exam GI & Abdominal Exam: Soft, Tenderness, Pulsatile Mass. absent: Guarding, Rigid - Rectal Exam Rectal Exam: Deferred - Extremities Exam Extremities Exam: Full ROM. absent: Pedal Edema, Tenderness - Back Exam Back Exam: CVA tenderness (L), CVA tenderness (R), NORMAL INSPECTION - Neurological Exam Neurological Exam: Alert, Awake, CN II-XII Intact, Oriented x3 Neuro motor strength exam: Left Upper Extremity: 5, Right Upper Extremity: 5, Left Lower Extremity: 5, Right Lower Extremity: 5 - Psychiatric Exam Psychiatric exam: Normal Affect, Normal Mood - Skin Skin Exam: Dry, Intact, Normal Color, Warm Assessment and Plan - Assessment and Plan (Free Text) Assessment: Patient is a 63 yo Nepalese male with a history of pre-DM and hypotension not on any meds who presented to ED with SOB, cough, and weakness. Patient has a significant smoking history- 20 pk yrs and quit 1 month ago. 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 Imaging shows extensive interstitial pulmonary disease. Patient is requiring intermittent BiPAP. Patient in airborne isolation until r/o TB. Plan: Respiratory distress- suspect interstitial lung disease due to smoking and/or exposures, r/o cancer, r/o TB (homeless, from [place], no BCG vaccine) - Airborne isolation - BiPAP PRN - CT head: no acute findings - CTA head/neck: no significant stenoses or abnormalities - CXR: peripheral interstitial and to lesser extent confluent changes bilate rally likely chronic in nature - CT chest: Findings consistent with diffuse significant interstitial fibrosis with what probably represents paraseptal emphysematous changes and bronchiectasis. There are scattered areas of confluent and ground-glass opacities. Calcified granuloma right lung base. There are mildly enlarged paratracheal and subcarinal lymph nodes - UDS negative - PPD placed- f/u 07/11, 07/12 - Quantiferon pending - HIV negative - Rapid flu negative - ProBNP 1540 - LDH elevated 778 - ESR 106 - Trop negative x2 - Blood Cx no growth >48 hrs - Sputum Cx pending - Sputum AFB negative x1 - Echo: EF 70%, no diastolic dysfunction, mild-mod TR, mild-mod pulm HTN (44 mmHg), no pericardial effusion - Duoneb Q4H [facility] - Solumedrol 60mg IVP Q6H - Azithro 500 mg IVPB daily- started 07/09 - Ceftriaxone 1 g IVPB daily- started 07/09 - ICU consulted- does not require critical care at this time - Pulmonology consulted ([facility])- w/u connective tissue disease Hyperthyroidism - TSH 0.05 - Free T4 pending H/o pre-diabetes mellitus - A1c 5.5 - Hypoglycemic protocol - Accuchecks ACHS with ISS Pulsating abdominal mass - Abd u/s: no aortic aneurysm - CT A/P: Question enlargement of the pancreatic head/uncinate process. It is unclear if this finding is the results of edematous pancreas/mass or collapsed adjacent duodenum which is difficult to distinguish. Recommend follow-up pancreatic CT for further assessment. 2.1 x 2.9 x 3.6 cm aneurysmal dilatation of the distal aorta. Moderate constipation. - Hepatitis panel negative Dysuria and flank pain - UA: 2+ blood, 15 RBC - CT A/P: Question enlargement of the pancreatic head/uncinate process. It is unclear if this finding is the results of edematous pancreas/mass or collapsed adjacent duodenum which is difficult to distinguish. Recommend follow-up pancreatic CT for further assessment. 2.1 x 2.9 x 3.6 cm aneurysmal dilatation of the distal aorta. Moderate constipation. Ppx: VTE: SCDs, heparin 5000 units Q8H GI: PTX 40 mg PO daily Code status: full code Case was discussed with attending, Dr. Wellington. <David Wellington H - Last Filed: 07/11/18 08:01> Objective - Vital Signs/Intake and Output Vital Signs (last 24 hours): Temp Pulse Resp BP Pulse Ox 97.8 F 58 L 18 152/77 H 98 07/11/18 07:00 07/11/18 07:16 07/11/18 07:00 07/11/18 07:00 07/11/18 07:00 - Medications Medications: Current Medications Acetaminophen (Tylenol 325mg Tab) 650 mg PO Q6 PRN PRN Reason: Pain, Mild (1-3) Last Admin: 07/09/18 12:03 Dose: 650 mg Albuterol/Ipratropium (Duoneb 3 Mg/0.5 Mg (3 Ml) Ud) 3 ml INH RQ4 [facility] Last Admin: 07/11/18 04:00 Dose: Not Given Budesonide (Pulmicort Respules) 0.5 mg INH RQ12 [facility] Last Admin: 07/10/18 20:00 Dose: Not Given Dextrose (Dextrose 50% Inj) 0 ml IV STAT PRN; Protocol PRN Reason: Hypoglycemia Protocol Dextrose (Glutose 15) 0 gm PO ONCE PRN; Protocol PRN Reason: Hypoglycemia Protocol Glucagon (Glucagen Diagnostic Kit) 0 mg IM STAT PRN; Protocol PRN Reason: Hypoglycemia Protocol Heparin Sodium (Porcine) (Heparin) 5,000 units SC Q12 [facility] Last Admin: 07/10/18 21:08 Dose: 5,000 units Dextrose (Dextrose 5% In Water 1000 Ml) 1,000 mls @ 0 mls/hr IV .Q0M PRN; Protocol PRN Reason: Hypoglycemia Protocol Azithromycin 500 mg/ Sodium (Chloride) 250 mls @ 250 mls/hr IVPB DAILY [facility]; Protocol Last Admin: 07/10/18 10:41 Dose: 250 mls/hr Ceftriaxone Sodium 1 gm/ (Sodium Chloride) 100 mls @ 100 mls/hr IVPB DAILY [facility]; Protocol Last Admin: 07/10/18 09:22 Dose: 100 mls/hr Sodium Chloride (Sodium Chloride 0.45%) 1,000 mls @ 100 mls/hr IV .Q10H [facility] Last Admin: 07/11/18 00:16 Dose: 100 mls/hr Ibuprofen (Motrin Tab) 600 mg PO TID PRN PRN Reason: Pain, moderate (4-7) Last Admin: 07/10/18 17:35 Dose: 600 mg Influenza Virus Vaccine (Fluzone Quad [id number]) 60 mcg IM .ONCE ONE Stop: 07/11/18 14:01 Insulin Human Regular (Novolin R) 0 unit SC ACHS [facility]; Protocol Last Admin: 07/10/18 21:23 Dose: Not Given Methylprednisolone (Solu-Medrol) 60 mg IVP Q6 [facility] Last Admin: 07/11/18 05:42 Dose: 60 mg Pantoprazole Sodium (Protonix Inj) 40 mg IVP DAILY [facility] Last Admin: 07/10/18 09:29 Dose: 40 mg Pneumococcal Polyvalent Vaccine (Pneumovax 23 Vaccine) 0.5 ml IM .ONCE ONE Stop: 07/11/18 14:01 Tramadol HCl (Ultram) 25 mg PO TID PRN PRN Reason: Pain, severe (8-10) - Labs Labs: 07/11/18 07:08 07/11/18 07:08 Attending/Attestation - Attestation I have personally seen and examined this patient.: Yes I have fully participated in the care of the patient.: Yes I have reviewed all pertinent clinical information, including history, physical exam and plan: Yes Notes (Text): 07/11/18 07:58 Medical attending: Patient was seen and examined by me with the medical r esidents The patient explains his breathing is not improved from yesterday - we will increase the frequency of the IV solumedrol. At night is on Bipap and during the day nasal cannula Continue with the pulmicort as well nebulizer treatments We did not have the echo done yet Also pending the Quanterferon Gold, PPD He remains on IV abx as well. David Wellington
[2018-07-10] MEDS: (Novolin R) Insulin Human Regular 100 units/ml vial SC SCH ×4 (07:47→21:23)
[2018-07-10] MEDS: Budesonide 0.5 mg/2 ml Inhal Susp UD INH SCH ×3 (08:04→20:00)
[2018-07-10 08:47] LABS: LYMPH # 0.8 K/uL (1.0-4.3); LYMPH % 4.8 % (20.0-40.0); MEAN CELL VOLUME 98.6 fL (80.0-94.0); MEAN CORPUSCULAR HEMOGLOBIN 32.8 pg (27.0-31.0); MEAN CORPUSCULAR HGB CONC 33.2 g/dL (33.0-37.0); MEAN PLATELET VOLUME 9.2 fL (7.2-11.7); MONO # 0.4 K/uL (0.0-0.8); MONO % 2.2 % (0.0-10.0); NEUT # 15.3 K/uL (1.8-7.0); PLATELET COUNT 288 K/uL (130-400); RBC 3.66 Mil/uL (4.40-5.90); RED CELL DISTRIBUTION WIDTH 14.9 % (11.5-14.5)
[2018-07-10 08:49] LABS: WHITE BLOOD COUNT 16.5 K/uL (4.8-10.8)
[2018-07-10 08:58] LABS: ALB/GLOB RATIO 0.6 (1.0-2.1); ALT/SGPT 10 U/L (21-72); AST/SGOT 26 U/L (17-59); BLOOD UREA NITROGEN 21 mg/dL (9-20); CALCIUM 8.4 mg/dl (8.6-10.4); GFR NON-AFRICAN AMERICAN > 60
[2018-07-10 09:59] LABS: LYMPHOCYTE 5 % (20-40); MONOCYTE 5 % (0-10); NEUTROPHIL 90 % (50-75); PLATELET ESTIMATE NORMAL (NORMAL); TOTAL CELLS COUNTED 100
[2018-07-10] MEDS: Azithromycin 500 MG in Sodium Chloride 0.9% 250 ML IVPB SCH (10:41)
--- NOTE | 2018-07-10 12:43 | CARD ---
APPROVED REPORT Date of service: 07/09/2018 EXAM: Two-dimensional and M-mode echocardiogram with Doppler and color Doppler. Other Information Quality : GoodRhythm : INDICATION Chest Pain Syncope smoker 2D DIMENSIONS IVSd1.0 (0.7-1.1cm)LVDd4.3 (3.9-5.9cm) PWd0.8 (0.7-1.1cm)LA Hpxmva85 (18-58mL) LVDs2.6 (2.5-4.0cm)FS (%) 39.9 % LVEF (%)70.8 (>50%)LVEF (Nichols's)63.75 % IVC0.00 cm M-Mode DIMENSIONS RVDd2.95 (2.1-3.2cm)Left Atrium (MM)3.13 (2.5-4.0cm) IVSd0.86 (0.7-1.1cm)Aortic Root3.43 (2.2-3.7cm) LVDd4.67 (4.0-5.6cm)Aortic Cusp Exc.2.01 (1.5-2.0cm) PWd0.86 (0.7-1.1cm)FS (%) 34 % LVDs3.10 (2.0-3.8cm)LVEF (%)62 (>50%) Mitral Valve MV E Jtrrpnky07.4cm/sMV A Dcozyyxv36.9cm/sE/A ratio1.3 TDI Lateral E' Peak V14.10cm/sMedial E' Peak V8.87cm/sE/Lateral E'4.5 E/Medial E'7.1 Tricuspid Valve TR Peak Lzvvkzus903ji/sTR Peak Gr.[id number] LEFT VENTRICLE The left ventricle is normal size. There is normal left ventricular wall thickness. The left ventricular systolic function is normal. The left ventricular ejection fraction is within the normal range. There is normal LV segmental wall motion. The left ventricular diastolic function is normal. Normal left atrial pressure. RIGHT VENTRICLE The right ventricle size appears prominent The right ventricular systolic function is normal. ATRIA The left atrium size is normal. The right atrium size is normal. AORTIC VALVE The aortic valve is normal in structure. No aortic regurgitation is present. There is no aortic valvular stenosis. MITRAL VALVE The mitral valve is normal in structure. Mitral regurgitation is trace. TRICUSPID VALVE The tricuspid valve is normal in structure. There is mild to moderate tricuspid regurgitation. Right ventricular systolic pressure is estimated at - 44 mmHg. There is mild-moderate pulmonary hypertension. PULMONIC VALVE The pulmonary valve is normal in structure. There is trace pulmonic valvular regurgitation. GREAT VESSELS The aortic root is normal in size. The IVC is normal in size and collapses >50% with inspiration. PERICARDIAL EFFUSION There is no pericardial effusion. <Conclusion> The left ventricular systolic function is normal. There is normal LV segmental wall motion. The left ventricular diastolic function is normal. Normal left atrial pressure. The right ventricle size appears prominent with normal systolic function. There is mild to moderate tricuspid regurgitation. Right ventricular systolic pressure is estimated at - 44 mmHg compatible with mild-moderate pulmonary hypertension. There is no pericardial effusion.
--- NOTE | 2018-07-10 13:17 | US ---
Date of service: 07/09/2018 PROCEDURE: Ultrasound of abdominal aorta HISTORY: pulsating abdominal mass COMPARISON: Not available TECHNIQUE: Transabdominal FINDINGS: The proximal abdominal aorta measures 1.9 cm A-P. The mid abdominal aorta measures 1.3 cm A-P. The distal abdominal aorta measures 1.0 cm A-P. There are scattered areas of atherosclerotic plaque. There is no intraluminal mass or significant stenosis. The iliac bifurcation is unremarkable. IMPRESSION: No evidence of abdominal aortic aneurysm.
--- NOTE | 2018-07-10 13:44 | CP.PCM.CON ---
History of Present Illness - History of Present Illness History of Present Illness: Patient is a 53 year old Macanese male with PMH of prediabetes and hypotension who presented to the ER on 07/08/18 with complaint of SOB with associated chest pain on exertion with productive cough that started 15 days ago. Pulmonary was consulted due to pulmonary fibrosis and tachypnea. He reports initially starting to feel unwell about 1 month ago. He reports the SOB has not receded for the past 15 days. He says that every time he coughs, he produces a thick, sticky, white sputum; reports no blood or mucus in sputum. He also reports pain with coughing. Patient reports estimated 10kg weight loss over last 2 years, mostly in last 3 months. PMH: prediabetes and hypotension Meds: No home meds, cannot afford. Hospital meds: Duoneb 3 mg, Azithromycin 500 mg, Ceftriaxone 1 gm, Lovenox 40 mg, Heparin SubC, Solu-Medrol 60 mg, Protonix 40 mg Allergies: NKDA PSHx: Unspecified abdominal surgery 20 years ago FamHx: Mother and father had diabetes and of [place] in their 70s SocHx: Quit tobacco 1 month ago, previous 1/2 ppd x 40 years. Quit alcohol 1 month ago, previously drinking a fifth of liquor (usually vodka) daily. Denies illicit drug use. He does not have family in the country and illegally immigrated from [place] 2 years ago. Currently homeless and living in friend's garage. 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 CXR (07/08): Peripheral interstitial and to lesser extent confluent changes bilaterally likely chronic in nature CT Chest (07/08): Findings consistent with diffuse interstitial fibrosis with what probably represents paraseptal emphysematous changes and bronchiestasis. Scattered areas of confluent and ground-glass opacities. Calcified granuloma right base. ProBNP: 1540 VBG on admission: pH 7.39, total CO2 30.6 ABG after 1 hr BiPAP: pH 7.38, total CO 26.7 WBC on admission: 12.1, WBC on 07/09/18: 6.9 AFB Sputum Cultures ordered. Review of Systems - Review of Systems All systems: reviewed and no additional remarkable complaints except (shortness of breath and cough) Past Patient History - Past Social History Smoking Status: Former Smoker - CARDIAC Hx Hypotension: Yes - MUSCULOSKELETAL/RHEUMATOLOGICAL Hx Falls: Yes - PSYCHIATRIC Hx Substance Use: No - SURGICAL HISTORY Hx Surgeries: Yes Other/Comment: peptic ulcer surgery - ANESTHESIA Hx Anesthesia: No Hx Anesthesia Reactions: No Meds Allergies/Adverse Reactions: Allergies Allergy/AdvReac Type Severity Reaction Status Date / Time No Known Allergies Allergy Unverified 07/08/18 15:44 - Medications Medications: Current Medications Acetaminophen (Tylenol 325mg Tab) 650 mg PO Q6 PRN PRN Reason: Pain, Mild (1-3) Last Admin: 07/09/18 12:03 Dose: 650 mg Albuterol/Ipratropium (Duoneb 3 Mg/0.5 Mg (3 Ml) Ud) 3 ml INH RQ4 [facility] Last Admin: 07/10/18 13:31 Dose: 3 ml Budesonide (Pulmicort Respules) 0.5 mg INH RQ12 [facility] Last Admin: 07/10/18 08:04 Dose: 0.5 mg Dextrose (Dextrose 50% Inj) 0 ml IV STAT PRN; Protocol PRN Reason: Hypoglycemia Protocol Dextrose (Glutose 15) 0 gm PO ONCE PRN; Protocol PRN Reason: Hypoglycemia Protocol Glucagon (Glucagen Diagnostic Kit) 0 mg IM STAT PRN; Protocol PRN Reason: Hypoglycemia Protocol Heparin Sodium (Porcine) (Heparin) 5,000 units SC Q12 [facility] Last Admin: 07/10/18 09:28 Dose: 5,000 units Dextrose (Dextrose 5% In Water 1000 Ml) 1,000 mls @ 0 mls/hr IV .Q0M PRN; Protocol PRN Reason: Hypoglycemia Protocol Azithromycin 500 mg/ Sodium (Chloride) 250 mls @ 250 mls/hr IVPB DAILY [facility]; Pro tocol Last Admin: 07/10/18 10:41 Dose: 250 mls/hr Ceftriaxone Sodium 1 gm/ (Sodium Chloride) 100 mls @ 100 mls/hr IVPB DAILY [facility]; Protocol Last Admin: 07/10/18 09:22 Dose: 100 mls/hr Ibuprofen (Motrin Tab) 600 mg PO TID PRN PRN Reason: Pain, moderate (4-7) Influenza Virus Vaccine (Fluzone Quad [id number]) 60 mcg IM .ONCE ONE Stop: 07/11/18 14:01 Insulin Human Regular (Novolin R) 0 unit SC ACHS [facility]; Protocol Last Admin: 07/10/18 12:30 Dose: 3 units Methylprednisolone (Solu-Medrol) 60 mg IVP Q6 [facility] Last Admin: 07/10/18 11:44 Dose: 60 mg Pantoprazole Sodium (Protonix Inj) 40 mg IVP DAILY [facility] Last Admin: 07/10/18 09:29 Dose: 40 mg Pneumococcal Polyvalent Vaccine (Pneumovax 23 Vaccine) 0.5 ml IM .ONCE ONE Stop: 07/11/18 14:01 Tramadol HCl (Ultram) 25 mg PO TID PRN PRN Reason: Pain, severe (8-10) Physical Exam - Head Exam Head Exam: ATRAUMATIC, NORMOCEPHALIC - Eye Exam Eye Exam: Normal appearance - ENT Exam ENT Exam: Mucous Membranes Moist - Neck Exam Neck exam: Positive for: Normal Inspection - Respiratory Exam Respiratory Exam: Rales - Cardiovascular Exam Cardiovascular Exam: REGULAR RHYTHM - GI/Abdominal Exam GI & Abdominal Exam: Normal Bowel Sounds, Soft - Extremities Exam Extremities exam: Positive for: normal inspection Results - Vital Signs Recent Vital Signs: Last Vital Signs Temp 98.1 F 07/10/18 08:13 Pulse 73 07/10/18 08:13 Resp 20 07/10/18 08:13 BP 112/66 07/10/18 08:13 Pulse Ox 96 07/10/18 08:13 - Labs Result Diagrams: 07/10/18 08:33 07/10/18 08:33 Labs: Laboratory Results - last 24 hr 07/09/18 07/09/18 07/10/18 18:07 22:21 06:41 WBC RBC Hgb Hct MCV MCH MCHC RDW Plt Count MPV Neut % (Auto) Lymph % (Auto) [place] % (Auto) Eos % (Auto) Baso % (Auto) Neut # (Auto) Lymph # (Auto) [place] # (Auto) Eos # (Auto) Baso # (Auto) Neutrophils % (Manual) Lymphocytes % (Manual) Monocytes % (Manual) Platelet Estimate Sodium Potassium Chloride Carbon Dioxide Anion Gap BUN Creatinine Est GFR ( Amer) Est GFR (Non-Af Amer) POC Glucose (mg/dL) 148 H 162 H 137 H Random Glucose Calcium Phosphorus Magnesium Total Bilirubin AST ALT Alkaline Phosphatase Troponin I Total Protein Albumin Globulin Albumin/Globulin Ratio 07/10/18 07/10/18 07/10/18 08:33 08:33 08:33 WBC 16.5 H D RBC 3.66 L Hgb 12.0 Hct 36.1 MCV 98.6 H MCH 32.8 H MCHC 33.2 RDW 14.9 H Plt Count 288 MPV 9.2 Neut % (Auto) 93.0 H Lymph % (Auto) 4.8 L [place] % (Auto) 2.2 Eos % (Auto) 0.0 Baso % (Auto) 0.0 Neut # (Auto) 15.3 H Lymph # (Auto) 0.8 L [place] # (Auto) 0.4 Eos # (Auto) 0.0 Baso # (Auto) 0.0 Neutrophils % (Manual) 90 H Lymphocytes % (Manual) 5 L Monocytes % (Manual) 5 Platelet Estimate Normal Sodium 137 Potassium 4.5 Chloride 101 Carbon Dioxide 29 Anion Gap 11 BUN 21 H Creatinine 0.8 Est GFR ( Amer) > 60 Est GFR (Non-Af Amer) > 60 POC Glucose (mg/dL) Random Glucose 168 H Calcium 8.4 L Phosphorus 4.2 Magnesium 2.2 Total Bilirubin 0.2 AST 26 ALT 10 L Alkaline Phosphatase 61 Troponin I < 0.0120 Total Protein 8.1 Albumin 3.0 L Globulin 5.0 H Albumin/Globulin Ratio 0.6 L 07/10/18 10:58 WBC RBC Hgb Hct MCV MCH MCHC RDW Plt Count MPV Neut % (Auto) Lymph % (Auto) [place] % (Auto) Eos % (Auto) Baso % (Auto) Neut # (Auto) Lymph # (Auto) [place] # (Auto) Eos # (Auto) Baso # (Auto) Neutrophils % (Manual) Lymphocytes % (Manual) Monocytes % (Manual) Platelet Estimate Sodium Potassium Chloride Carbon Dioxide Anion Gap BUN Creatinine Est GFR ( Amer) Est GFR (Non-Af Amer) POC Glucose (mg/dL) 210 H Random Glucose Calcium Phosphorus Magnesium Total Bilirubin AST ALT Alkaline Phosphatase Troponin I Total Protein Albumin Globulin Albumin/Globulin Ratio Assessment & Plan (1) Pulmonary fibrosis Status: Acute Comment: diffuse institutional lung disease, with honeycombing and bronchiectasis. Continue IV steroids. rule out connective tissue disease. Con tinue antibiotics (2) Chronic respiratory failure with hypoxia Status: Acute Priority: High
[2018-07-10] MEDS: Sodium Chloride 0.45% 1,000 ML IV SCH (15:45)
--- NOTE | 2018-07-10 17:21 | CARD ---
APPROVED REPORT Date of service: 07/08/2018 EKG Measurement Heart [id number] <Conclusion> Sinus tachycardia Possible Left atrial enlargement T wave abnormality, consider anterior ischemia Abnormal ECG
[2018-07-11] MEDS: MethylPREDNISolone 40 mg Vial IVP SCH ×5 (00:10→23:51)
[2018-07-11] MEDS: Sodium Chloride 0.45% 1,000 ML IV SCH ×3 (00:16→21:15)
[2018-07-11] MEDS: Albuterol-Ipratrop 3 mg / 0.5 (3 ml) UD INH SCH ×6 (01:50→22:25)
[2018-07-11 07:36] LABS: BASO % 0.1 % (0.0-2.0); HEMOGLOBIN 11.9 g/dL (12.0-18.0); LYMPH # 0.7 K/uL (1.0-4.3); LYMPH % 4.2 % (20.0-40.0); MEAN CELL VOLUME 97.7 fL (80.0-94.0); MEAN CORPUSCULAR HEMOGLOBIN 32.6 pg (27.0-31.0); MEAN CORPUSCULAR HGB CONC 33.3 g/dL (33.0-37.0); MEAN PLATELET VOLUME 8.9 fL (7.2-11.7); MONO # 0.5 K/uL (0.0-0.8); MONO % 2.9 % (0.0-10.0); NEUT # 16.2 K/uL (1.8-7.0); NEUT % 92.8 % (50.0-75.0); PLATELET COUNT 260 K/uL (130-400); RBC 3.64 Mil/uL (4.40-5.90); RED CELL DISTRIBUTION WIDTH 14.8 % (11.5-14.5); WHITE BLOOD COUNT 17.4 K/uL (4.8-10.8)
--- NOTE | 2018-07-11 07:45 | CP.PCM.PN ---
<Brandie Varela - Last Filed: 07/11/18 15:38> Subjective - Date & Time of Evaluation Date of Evaluation: 07/11/18 Time of Evaluation: 07:45 - Subjective Subjective: PGY-1 Brandie Varela D.O. Medicine progress note for Dr. Wellington's service: Patient was seen and examined this morning. He is seen laying on his back in bed and still in respiratory isolation. He is feeling the same as during the time of admission. He reports SOB when with minimal exertion. He still has the cough, but it is now dry and coughing is more painful and leaves a burning sensation on both sides of his lungs. He rates the pain as 5-7/10. He describes his lungs as "stiff" and he is unable to get a full breath. He is no longer constipated, he had a "normal" bowel movement this morning just prior to interview. He complains of passing a lot of smelly gas, which is new to him. He is anxious about having cancer. Otherwise, he slept well and is tolerating his solid meals well. He denies dizziness, odynophagia, and nausea/vomiting. Objective - Vital Signs/Intake and Output Vital Signs (last 24 hours): Temp Pulse Resp BP Pulse Ox 97.8 F 58 L 18 152/77 H 98 07/11/18 07:00 07/11/18 07:16 07/11/18 07:00 07/11/18 07:00 07/11/18 07:00 - Medications Medications: Current Medications Acetaminophen (Tylenol 325mg Tab) 650 mg PO Q6 PRN PRN Reason: Pain, Mild (1-3) Last Admin: 07/09/18 12:03 Dose: 650 mg Albuterol/Ipratropium (Duoneb 3 Mg/0.5 Mg (3 Ml) Ud) 3 ml INH RQ4 [facility] Last Admin: 07/11/18 04:00 Dose: Not Given Budesonide (Pulmicort Respules) 0.5 mg INH RQ12 [facility] Last Admin: 07/10/18 20:00 Dose: Not Given Dextrose (Dextrose 50% Inj) 0 ml IV STAT PRN; Protocol PRN Reason: Hypoglycemia Protocol Dextrose (Glutose 15) 0 gm PO ONCE PRN; Protocol PRN Reason: Hypoglycemia Protocol Glucagon (Glucagen Diagnostic Kit) 0 mg IM STAT PRN; Protocol PRN Reason: Hypoglycemia Protocol Heparin Sodium (Porcine) (Heparin) 5,000 units SC Q12 [facility] Last Admin: 07/10/18 21:08 Dose: 5,000 units Dextrose (Dextrose 5% In Water 1000 Ml) 1,000 mls @ 0 mls/hr IV .Q0M PRN; Protocol PRN Reason: Hypoglycemia Protocol Azithromycin 500 mg/ Sodium (Chloride) 250 mls @ 250 mls/hr IVPB DAILY [facility]; Protocol Last Admin: 07/10/18 10:41 Dose: 250 mls/hr Ceftriaxone Sodium 1 gm/ (Sodium Chloride) 100 mls @ 100 mls/hr IVPB DAILY [facility]; Protocol Last Admin: 07/10/18 09:22 Dose: 100 mls/hr Sodium Chloride (Sodium Chloride 0.45%) 1,000 mls @ 100 mls/hr IV .Q10H [facility] Last Admin: 07/11/18 00:16 Dose: 100 mls/hr Ibuprofen (Motrin Tab) 600 mg PO TID PRN PRN Reason: Pain, moderate (4-7) Last Admin: 07/10/18 17:35 Dose: 600 mg Influenza Virus Vaccine (Fluzone Quad [id number]) 60 mcg IM .ONCE ONE Stop: 07/11/18 14:01 Insulin Human Regular (Novolin R) 0 unit SC ACHS [facility]; Protocol Last Admin: 07/10/18 21:23 Dose: Not Given Methylprednisolone (Solu-Medrol) 60 mg IVP Q6 [facility] Last Admin: 07/11/18 05:42 Dose: 60 mg Pantoprazole Sodium (Protonix Inj) 40 mg IVP DAILY [facility] Last Admin: 07/10/18 09:29 Dose: 40 mg Pneumococcal Polyvalent Vaccine (Pneumovax 23 Vaccine) 0.5 ml IM .ONCE ONE Stop: 07/11/18 14:01 Tramadol HCl (Ultram) 25 mg PO TID PRN PRN Reason: Pain, severe (8-10) - Labs Labs: 07/11/18 07:08 07/10/18 08:33 - Constitutional Appears: No Acute Distress, Cachectic (thin) - Head Exam Head Exam: ATRAUMATIC, NORMAL INSPECTION, NORMOCEPHALIC - Eye Exam Eye Exam: EOMI, Normal appearance, PERRL - ENT Exam ENT Exam: Mucous Membranes Moist, Normal Exam - Neck Exam Neck Exam: Normal Inspection - Respiratory Exam Respiratory Exam: Decreased Breath Sounds, Rales, Rhonchi, Respiratory Distress (mild). absent: Accessory Muscle Use, Stridor, NORMAL BREATHING PATTERN (tachypnea) - Cardiovascular Exam Cardiovascular Exam: REGULAR RHYTHM, +S1, +S2 - GI/Abdominal Exam GI & Abdominal Exam: Soft. absent: Tenderness - Rectal Exam Rectal Exam: Deferred - Extremities Exam Extremities Exam: Normal Inspection. absent: Pedal Edema - Neurological Exam Neurological Exam: Alert, Awake, CN II-XII Intact, Oriented x3 - Psychiatric Exam Psychiatric exam: Normal Affect, Normal Mood - Skin Skin Exam: Dry, Intact, Normal Color, Warm Assessment and Plan - Assessment and Plan (Free Text) Assessment: Patient is a 63 yo male with a history of pre-DM and hypotension not on any meds who presented to ED with SOB, cough, and weakness. Patient has a significant smoking history- 20 pk yrs and quit 1 month ago. 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 Imaging shows extensive interstitial pulmonary disease. Patient is requiring intermittent BiPAP. Patient in airborne isolation until r/o TB. Plan: Respiratory distress- suspect interstitial lung disease due to smoking and/or exposures, r/o cancer, r/o TB (homeless, from [place], no BCG vaccine) - Airborne isolation - BiPAP PRN - Afebrile - CT head: no acute findings - CTA head/neck: no significant stenoses or abnormalities - CXR: peripheral interstitial and to lesser extent confluent changes bilaterally likely chronic in nature - CT chest: Findings consistent with diffuse significant interstitial fibrosis with what probably represents paraseptal emphysematous changes and bronchiectasis. There are scattered areas of confluent and ground-glass opacities. Calcified granuloma right lung base. There are mildly enlarged paratracheal and subcarinal lymph nodes - Echo: EF 70%, no diastolic dysfunction, mild-mod TR, mild-mod pulm HTN (44 mmHg), no pericardial effusion - UDS negative - PPD placed- negative 07/11, f/u 07/12 - Quantiferon pending - HIV negative - Rapid flu negative - ProBNP 1540 - LDH elevated 778 - ESR 106 - Trop negative x2 - Blood Cx no growth >48 hrs - Sputum Cx pending - Sputum AFB negative x1 - Duoneb Q4H [facility] - Solumedrol 60mg IVP Q6H - Azithro 500 mg IVPB daily- started 07/09 - Ceftriaxone 1 g IVPB daily- started 07/09 - ICU consulted- does not require critical care at this time - Pulmonology consulted (Chuy)- w/u connective tissue disease - IR consulted (Signh)- possible Bx Thyroid abnormality - TSH low (0.05) - Free T4 wnl (1.37), tot T4 low (3.24), T3 wnl (2.89) - Thyroid Abs pending - Endocrinology consulted (Cam) Pancreatic abnormality - CT A/P: Question enlargement of the pancreatic head/uncinate process. It is un clear if this finding is the results of edematous pancreas/mass or collapsed adjacent duodenum which is difficult to distinguish. Recommend follow-up pancreatic CT for further assessment. - Tumor markings pending H/o pre-diabetes mellitus - A1c 5.5 - Hypoglycemic protocol - Accuchecks ACHS with ISS Pulsating abdominal mass - Abd u/s: no aortic aneurysm - CT A/P: 2.1 x 2.9 x 3.6 cm aneurysmal dilatation of the distal aorta. Moderate constipation. - Hepatitis panel negative Dysuria and flank pain, improving - UA: 2+ blood, 15 RBC - Urine Cx no growth - CT A/P: no abnormalities noted Ppx: VTE: SCDs, heparin 5000 units Q8H GI: PTX 40 mg PO daily Code status: full code Case was discussed with attending, Dr. Wellington. <David Wellington - Last Filed: 07/11/18 16:26> Objective - Vital Signs/Intake and Output Vital Signs (last 24 hours): Temp Pulse Resp BP Pulse Ox 97.8 F 84 18 127/76 95 07/11/18 15:00 07/11/18 16:15 07/11/18 15:00 07/11/18 15:00 07/11/18 15:00 - Medications Medications: Current Medications Acetaminophen (Tylenol 325mg Tab) 650 mg PO Q6 PRN PRN Reason: Pain, Mild (1-3) Last Admin: 07/09/18 12:03 Dose: 650 mg Albuterol/Ipratropium (Duoneb 3 Mg/0.5 Mg (3 Ml) Ud) 3 ml INH RQ4 [facility] Last Admin: 07/11/18 15:57 Dose: 3 ml Budesonide (Pulmicort Respules) 0.5 mg INH RQ12 [facility] Last Admin: 07/11/18 08:30 Dose: 0.5 mg Dextrose (Dextrose 50% Inj) 0 ml IV STAT PRN; Protocol PRN Reason: Hypoglycemia Protocol Dextrose (Glutose 15) 0 gm PO ONCE PRN; Protocol PRN Reason: Hypoglycemia Protocol Glucagon (Glucagen Diagnostic Kit) 0 mg IM STAT PRN; Protocol PRN Reason: Hypoglycemia Protocol Guaifenesin/Dextromethorphan (Robitussin Dm) 5 ml PO Q4H PRN PRN Reason: Cough Heparin Sodium (Porcine) (Heparin) 5,000 units SC Q12 [facility] Last Admin: 07/11/18 09:11 Dose: 5,000 units Dextrose (Dextrose 5% In Water 1000 Ml) 1,000 mls @ 0 mls/hr IV .Q0M PRN; Protocol PRN Reason: Hypoglycemia Protocol Azithromycin 500 mg/ Sodium (Chloride) 250 mls @ 250 mls/hr IVPB DAILY [facility]; Protocol Last Admin: 07/11/18 10:24 Dose: 250 mls/hr Ceftriaxone Sodium 1 gm/ (Sodium Chloride) 100 mls @ 100 mls/hr IVPB DAILY [facility]; Protocol Last Admin: 07/11/18 09:21 Dose: 100 mls/hr Sodium Chloride (Sodium Chloride 0.45%) 1,000 mls @ 100 mls/hr IV .Q10H [facility] Last Admin: 07/11/18 10:25 Dose: 100 mls/hr Ibuprofen (Motrin Tab) 600 mg PO TID PRN PRN Reason: Pain, moderate (4-7) Last Admin: 07/11/18 12:08 Dose: 600 mg Insulin Human Regular (Novolin R) 0 unit SC ACHS [facility]; Protocol Last Admin: 07/11/18 12:03 Dose: 4 units Methylprednisolone (Solu-Medrol) 60 mg IVP Q6 [facility] Last Admin: 07/11/18 12:03 Dose: 60 mg Pantoprazole Sodium (Protonix Inj) 40 mg IVP DAILY [facility] Last Admin: 07/11/18 09:11 Dose: 40 mg Tramadol HCl (Ultram) 25 mg PO TID PRN PRN Reason: Pain, severe (8-10) - Labs Labs: 07/11/18 07:08 07/11/18 07:08 Attending/Attestation - Attestation I have personally seen and examined this patient.: Yes I have fully participated in the care of the patient.: Yes I have reviewed all pertinent clinical information, including history, physical exam and plan: Yes Notes (Text): 07/11/18 16:22 Medical attending: Patient was seen and examined by me. Agree with the above note by the resident The patient was not in any acute distress however breathing he reported is still poor. He has signifigant WATSON even when getting out of bed to bathroom The PPD was negative First Sputum AFB negative Blood cultures negative We are checking CA 19-9, CA 125, CEA, AFP. There was abnormal appearance of the pancrease reported on the CT He remains on the IV solumedrol, pulmicort, nebulizer treamtnet The Echo returned showed that there is moderate pulmonary HTN, the heart valves were stable Pulmonary has advised biopsy, will consult ANGELICA Wellington 07/11/18 16:26
[2018-07-11 07:46] LABS: ALB/GLOB RATIO 0.6 (1.0-2.1); ALBUMIN 2.8 g/dL (3.5-5.0); ALT/SGPT 9 U/L (21-72); AST/SGOT 34 U/L (17-59); BLOOD UREA NITROGEN 20 mg/dL (9-20); GFR NON-AFRICAN AMERICAN > 60
[2018-07-11] MEDS: (Novolin R) Insulin Human Regular 100 units/ml vial SC SCH ×4 (08:30→22:40)
[2018-07-11] MEDS: Budesonide 0.5 mg/2 ml Inhal Susp UD INH SCH ×2 (08:30→22:25)
[2018-07-11 09:24] LABS: ANISOCYTOSIS SLIGHT; HYPOCHROMIC SLIGHT; LYMPHOCYTE 7 % (20-40); MONOCYTE 3 % (0-10); NEUTROPHIL 90 % (50-75); PLATELET ESTIMATE NORMAL (NORMAL); POLYCHROMIC SLIGHT; TOTAL CELLS COUNTED 100; TOXIC GRANULATION PRESENT
[2018-07-11 09:25] LABS: GIANT PLATELETS PRESENT; LARGE PLATELETS PRESENT
[2018-07-11] MEDS: Azithromycin 500 MG in Sodium Chloride 0.9% 250 ML IVPB SCH (10:24)
[2018-07-11 11:02] LABS: T4 3.24 ug/dL (5.5-11.0)
[2018-07-11] MEDS ORDERED: Influenza Vaccine 60 MCG/0.5 ML SYR (3 yr & up) IM ONE (14:00)
[2018-07-11] MEDS ORDERED: Pneumococcal 23-Valent Vaccine IM ONE (14:00)
--- NOTE | 2018-07-11 15:32 | CP.PCM.PN ---
Subjective - Date & Time of Evaluation Date of Evaluation: 07/11/18 Time of Evaluation: 13:20 - Subjective Subjective: patient seen and examined Still complaining of cough Afebrile CAT scan of the chest consistent with pulmonary fibrosis Elevated ESR rule out autoimmune disease Open lung biopsy Continue IV steroids Objective - Vital Signs/Intake and Output Vital Signs (last 24 hours): Temp Pulse Resp BP Pulse Ox 97.8 F 58 L 18 152/77 H 98 07/11/18 07:00 07/11/18 07:16 07/11/18 07:00 07/11/18 07:00 07/11/18 07:00 - Medications Medications: Current Medications Acetaminophen (Tylenol 325mg Tab) 650 mg PO Q6 PRN PRN Reason: Pain, Mild (1-3) Last Admin: 07/09/18 12:03 Dose: 650 mg Albuterol/Ipratropium (Duoneb 3 Mg/0.5 Mg (3 Ml) Ud) 3 ml INH RQ4 [facility] Last Admin: 07/11/18 12:05 Dose: Not Given Budesonide (Pulmicort Respules) 0.5 mg INH RQ12 [facility] Last Admin: 07/11/18 08:30 Dose: 0.5 mg Dextrose (Dextrose 50% Inj) 0 ml IV STAT PRN; Protocol PRN Reason: Hypoglycemia Protocol Dextrose (Glutose 15) 0 gm PO ONCE PRN; Protocol PRN Reason: Hypoglycemia Protocol Glucagon (Glucagen Diagnostic Kit) 0 mg IM STAT PRN; Protocol PRN Reason: Hypoglycemia Protocol Guaifenesin/Dextromethorphan (Robitussin Dm) 5 ml PO Q4H PRN PRN Reason: Cough Heparin Sodium (Porcine) (Heparin) 5,000 units SC Q12 [facility] Last Admin: 07/11/18 09:11 Dose: 5,000 units Dextrose (Dextrose 5% In Water 1000 Ml) 1,000 mls @ 0 mls/hr IV .Q0M PRN; Protocol PRN Reason: Hypoglycemia Protocol Azithromycin 500 mg/ Sodium (Chloride) 250 mls @ 250 mls/hr IVPB DAILY [facility]; Protocol Last Admin: 07/11/18 10:24 Dose: 250 mls/hr Ceftriaxone Sodium 1 gm/ (Sodium Chloride) 100 mls @ 100 mls/hr IVPB DAILY [facility]; Protocol Last Admin: 07/11/18 09:21 Dose: 100 mls/hr Sodium Chloride (Sodium Chloride 0.45%) 1,000 mls @ 100 mls/hr IV .Q10H [facility] Last Admin: 07/11/18 10:25 Dose: 100 mls/hr Ibuprofen (Motrin Tab) 600 mg PO TID PRN PRN Reason: Pain, moderate (4-7) Last Admin: 07/11/18 12:08 Dose: 600 mg Insulin Human Regular (Novolin R) 0 unit SC ACHS [facility]; Protocol Last Admin: 07/11/18 12:03 Dose: 4 units Methylprednisolone (Solu-Medrol) 60 mg IVP Q6 [facility] Last Admin: 07/11/18 12:03 Dose: 60 mg Pantoprazole Sodium (Protonix Inj) 40 mg IVP DAILY [facility] Last Admin: 07/11/18 09:11 Dose: 40 mg Tramadol HCl (Ultram) 25 mg PO TID PRN PRN Reason: Pain, severe (8-10) - Labs Labs: 07/11/18 07:08 07/11/18 07:08 Assessment and Plan (1) Pulmonary fibrosis Status: Acute (2) Chronic respiratory failure with hypoxia Status: Acute
[2018-07-11] MEDS: guaiFENesin DM 100 mg-10 mg/5 ml UD PO PRN (23:51)
--- NOTE | 2018-07-12 01:33 | CON ---
DATE: 07/11/2018 LOCATION: Room 567. HISTORY OF PRESENT ILLNESS: This is a 63-year-old male with recent evaluation for pulmonary fibrosis, presenting here with precordial chest pain and progressive shortness of breath and associated productive cough, and is now undergoing pulmonary evaluation and management, and is also being referred now for endocrine evaluation of abnormal thyroid function studies. PAST MEDICAL HISTORY: As mentioned above, history of prediabetes and hypotension, currently on no medications at this time. FAMILY HISTORY: Positive for hypertension and diabetes. SOCIAL HISTORY: The patient admits to chronic alcoholism and nicotine dependence for almost 40 years, but quit a month ago. He is currently homeless and lives in a friend's garage as noted from the historical note. He has part-time jobs to sustain himself financially. REVIEW OF SYSTEMS: Admits to generalized body weakness with easy fatigability and tiredness and suboptimal energy level. Also admits to precordial chest pain with progressive shortness of breath, initially exertion and then at rest with productive cough and pleuritic chest pain at the same time. His oral intake has been variable with nausea, dyspepsia, and vague upper abdominal pains with habitual constipation. PHYSICAL EXAMINATION: GENERAL: An average-built male, in no apparent distress. VITAL SIGNS: Blood pressure of 140/80, pulse of 70 beats per minute and regular, temperature 99, respirations 20. Height is 5 feet 11 inches, weight is 150 pounds. HEENT: Head is normocephalic. Eyes, anicteric with pink conjunctivae. Funduscopy not possible at this time. Ears, nose, and throat otherwise normal. NECK: Supple. Thyroid gland is normal size. No carotid bruits or any cervical adenopathy. CARDIOPULMONARY: Some adynamic precordium. S1 and S2 are rapid and regular. LUNGS: Show scattered rhonchi. ABDOMEN: Flat, soft with positive bowel sounds. EXTREMITIES: No peripheral edema. Pulses are +2 bilaterally. LABORATORY DATA: His chemistries showed a BUN of 20, sodium 136, potassium 4, chloride 99, CO2 of 29, glucose 191 and the repeat one is 269, creatinine is 0.6. His thyroid study showed a T4 of 3.24 with a free T4 of 1.37. His TSH is 0.05. ASSESSMENT: This is a 63-year-old male with pulmonary fibrosis, currently on intravenous steroid therapy, and is being referred now for endocrine evaluation of abnormal thyroid function studies. He remains clinically euthyroid and biochemically has normal free T4 levels with a low normal total T4 and suppressed thyroid-stimulating hormone indicative of the so-called acute sick euthyroid syndrome with superimposed thyroid-stimulating hormone suppression from the intercurrent intravenous steroid therapy as given. PLAN OF MANAGEMENT: There is no indication at this time for any kind of thyroid pharmacotherapy, and we will obtain serial chemistries and supplement accordingly as needed. We will also obtain serial thyroid studies and then change his dose regimen accordingly. Martine Ang MD
[2018-07-12] MEDS: Sodium Chloride 0.45% 1,000 ML IV SCH (06:31)
[2018-07-12] MEDS: MethylPREDNISolone 40 mg Vial IVP SCH ×3 (06:31→17:08)
[2018-07-12] MEDS: (Novolin R) Insulin Human Regular 100 units/ml vial SC SCH ×4 (07:55→21:46)
--- NOTE | 2018-07-12 08:21 | CP.PCM.PN ---
<Brandie Varela - Last Filed: 07/12/18 14:55> Subjective - Date & Time of Evaluation Date of Evaluation: 07/12/18 Time of Evaluation: 08:20 - Subjective Subjective: PGY-1 Brandie Varela D.O. Medicine progress note for Dr. Wellington's service: Patient was seen and examined this morning. Patient is clinically the same. Still SOB, especially with exertion. He has not required BiPAP again. He complains of diffuse body aches, especially in his torso. He cannot take a full breath. Cough mild but improving- no sputum production. He is eating better. Objective - Vital Signs/Intake and Output Vital Signs (last 24 hours): Temp Pulse Resp BP Pulse Ox 97.7 F 74 20 137/78 95 07/12/18 00:00 07/12/18 07:24 07/12/18 00:00 07/12/18 00:00 07/12/18 00:00 Intake and Output: 07/12/18 07/12/18 06:59 18:59 Intake Total 500 Balance 500 - Medications Medications: Current Medications Acetaminophen (Tylenol 325mg Tab) 650 mg PO Q6 PRN PRN Reason: Pain, Mild (1-3) Last Admin: 07/09/18 12:03 Dose: 650 mg Albuterol/Ipratropium (Duoneb 3 Mg/0.5 Mg (3 Ml) Ud) 3 ml INH RQ4 [facility] Last Admin: 07/11/18 22:25 Dose: Not Given Budesonide (Pulmicort Respules) 0.5 mg INH RQ12 [facility] Last Admin: 07/11/18 22:25 Dose: Not Given Dextrose (Dextrose 50% Inj) 0 ml IV STAT PRN; Protocol PRN Reason: Hypoglycemia Protocol Dextrose (Glutose 15) 0 gm PO ONCE PRN; Protocol PRN Reason: Hypoglycemia Protocol Glucagon (Glucagen Diagnostic Kit) 0 mg IM STAT PRN; Protocol PRN Reason: Hypoglycemia Protocol Guaifenesin/Dextromethorphan (Robitussin Dm) 5 ml PO Q4H PRN PRN Reason: Cough Last Admin: 07/11/18 23:51 Dose: 5 ml Heparin Sodium (Porcine) (Heparin) 5,000 units SC Q12 [facility] Last Admin: 07/11/18 21:14 Dose: 5,000 units Azithromycin 500 mg/ Sodium (Chloride) 250 mls @ 250 mls/hr IVPB DAILY [facility]; Protocol Last Admin: 07/11/18 10:24 Dose: 250 mls/hr Ceftriaxone Sodium 1 gm/ (Sodium Chloride) 100 mls @ 100 mls/hr IVPB DAILY [facility]; Protocol Last Admin: 07/11/18 09:21 Dose: 100 mls/hr Sodium Chloride (Sodium Chloride 0.45%) 1,000 mls @ 100 mls/hr IV .Q10H [facility] Last Admin: 07/12/18 06:31 Dose: 100 mls/hr Ibuprofen (Motrin Tab) 600 mg PO TID PRN PRN Reason: Pain, moderate (4-7) Last Admin: 07/11/18 21:14 Dose: 600 mg Insulin Human Regular (Novolin R) 0 unit SC ACHS [facility]; Protocol Last Admin: 07/12/18 07:55 Dose: Not Given Methylprednisolone (Solu-Medrol) 60 mg IVP Q6 [facility] Last Admin: 07/12/18 06:31 Dose: 60 mg Pantoprazole Sodium (Protonix Inj) 40 mg IVP DAILY [facility] Last Admin: 07/11/18 09:11 Dose: 40 mg Tramadol HCl (Ultram) 25 mg PO TID PRN PRN Reason: Pain, severe (8-10) - Labs Labs: 07/11/18 07:08 07/11/18 07:08 - Constitutional Appears: No Acute Distress, Cachectic - Head Exam Head Exam: ATRAUMATIC, NORMAL INSPECTION, NORMOCEPHALIC - Eye Exam Eye Exam: EOMI, Normal appearance, PERRL - ENT Exam ENT Exam: Mucous Membranes Moist - Neck Exam Neck Exam: Normal Inspection - Respiratory Exam Respiratory Exam: Chest Wall Tenderness, Decreased Breath Sounds, Rales, Rhonchi, NORMAL BREATHING PATTERN. absent: Respiratory Distress, Stridor - Cardiovascular Exam Cardiovascular Exam: REGULAR RHYTHM, +S1, +S2 - GI/Abdominal Exam GI & Abdominal Exam: Soft, Tenderness (mild). absent: Mass - Rectal Exam Rectal Exam: Deferred - Extremities Exam Extremities Exam: Normal Inspection. absent: Pedal Edema - Neurological Exam Neurological Exam: Alert, Awake, CN II-XII Intact, Oriented x3 - Psychiatric Exam Psychiatric exam: Normal Affect, Normal Mood - Skin Skin Exam: Dry, Intact, Normal Color, Warm Assessment and Plan - Assessment and Plan (Free Text) Assessment: Patient is a 63 yo male with a history of pre-DM and hypotension not on a [place] meds who presented to ED with SOB, cough, and weakness. Patient has a significant smoking history- 20 pk yrs and quit 1 month ago. 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 Imaging shows extensive interstitial pulmonary disease as well as pancreatic head abnormalities. Tumor markers elevated. Patient is no longer requiring intermittent BiPAP. Patient in airborne isolation until r/o TB. Elevated tumor markers. Consulted IR for lung Bx. Consulted GI for further pancreas work-up. Plan: Interstitial pulmonary fibrosis- suspect interstitial lung disease due to smoking and/or exposures, r/o cancer, r/o TB (homeless, from [place], no BCG vac cine) - Respiratory distress on admission, improving - Airborne isolation - BiPAP PRN - Afebrile - CT head: no acute findings - CTA head/neck: no significant stenoses or abnormalities - CXR: peripheral interstitial and to lesser extent confluent changes bilaterally likely chronic in nature - CT chest: Findings consistent with diffuse significant interstitial fibrosis with what probably represents paraseptal emphysematous changes and bronchiectasis. There are scattered areas of confluent and ground-glass opacities. Calcified granuloma right lung base. There are mildly enlarged paratracheal and subcarinal lymph nodes - Echo: EF 70%, no diastolic dysfunction, mild-mod TR, mild-mod pulm HTN (44 mmHg), no pericardial effusion - UDS negative - PPD placed- negative 07/11, negative 07/12 - Quantiferon indeterminate - HIV negative - LDH elevated 778 - Rapid flu negative - Mycoplasma negative - ProBNP 1540 - ESR 106 - Trop negative x2 - Blood Cx no growth >3 days - Sputum Cx negative - Sputum AFB negative x1 - PAULO, SRP Abs pending - Duoneb Q4H [facility] - Solumedrol 60mg IVP Q6H - Azithro 500 mg IVPB daily- started 07/09 - Ceftriaxone 1 g IVPB daily- started 07/09 - ICU consulted- does not require critical care at this time - Pulmonology consulted (Chuy)- w/u connective tissue disease, rec lung Bx, continue steroids - IR consulted (Cedric)- possible lung Bx Pancreatic abnormality - CT A/P: Question enlargement of the pancreatic head/uncinate process. It is unclear if this finding is the results of edematous pancreas/mass or collapsed adjacent duodenum which is difficult to distinguish. Recommend follow-up pancreatic CT for further assessment. - Recent weight loss - CEA elevated (6.3), CA 19-9 elevated (215), CA 125 elevated (46.8) - AFP wnl (1.4) - Pancreatic CT pending - GI consulted (Venessa) Thyroid abnormality - TSH low (0.050.17) - Free T4 wnl/low (1.37, 0.76), tot T4 low (3.24, 3.22), T3 wnl (2.89) - Thyroid Abs pending - Endocrinology consulted (Cam)- serial labs H/o pre-diabetes mellitus - A1c 5.5 - Hypoglycemic protocol - Accuchecks ACHS with ISS Pulsating abdominal mass- likely palpable due to thin body habitus - Abd u/s: no aortic aneurysm - CT A/P: 2.1 x 2.9 x 3.6 cm aneurysmal dilatation of the distal aorta. Moderate constipation. - Hepatitis panel negative Dysuria and flank pain, resolved - UA: 2+ blood, 15 RBC - Urine Cx no growth - CT A/P: no abnormalities noted Ppx: VTE: SCDs, heparin 5000 units Q8H GI: PTX 40 mg PO daily Dietary supplements: Ensure Enlive TID Code status: full code Case was discussed with attending, Dr. Wellington. <David Wellington H - Last Filed: 07/12/18 15:57> Objective - Vital Signs/Intake and Output Vital Signs (last 24 hours): Temp Pulse Resp BP Pulse Ox 97.7 F 103 H 18 152/84 H 97 07/12/18 07:35 07/12/18 15:37 07/12/18 07:35 07/12/18 07:35 07/12/18 07:35 Intake and Output: 07/12/18 07/12/18 06:59 18:59 Intake Total 500 Balance 500 - Medications Medications: Current Medications Acetaminophen (Tylenol 325mg Tab) 650 mg PO Q6 PRN PRN Reason: Pain, Mild (1-3) Last Admin: 07/09/18 12:03 Dose: 650 mg Albuterol/Ipratropium (Duoneb 3 Mg/0.5 Mg (3 Ml) Ud) 3 ml INH RQ4 [facility] Last Admin: 07/12/18 11:35 Dose: 3 ml Budesonide (Pulmicort Respules) 0.5 mg INH RQ12 [facility] Last Admin: 07/12/18 08:29 Dose: 0.5 mg Dextrose (Dextrose 50% Inj) 0 ml IV STAT PRN; Protocol PRN Reason: Hypoglycemia Protocol Dextrose (Glutose 15) 0 gm PO ONCE PRN; Protocol PRN Reason: Hypoglycemia Protocol Glucagon (Glucagen Diagnostic Kit) 0 mg IM STAT PRN; Protocol PRN Reason: Hypoglycemia Protocol Guaifenesin/Dextromethorphan (Robitussin Dm) 5 ml PO Q4H PRN PRN Reason: Cough Last Admin: 07/11/18 23:51 Dose: 5 ml Azithromycin 500 mg/ Sodium (Chloride) 250 mls @ 250 mls/hr IVPB DAILY [facility]; Protocol Last Admin: 07/12/18 10:47 Dose: 250 mls/hr Ibuprofen (Motrin Tab) 600 mg PO TID PRN PRN Reason: Pain, moderate (4-7) Last Admin: 07/11/18 21:14 Dose: 600 mg Insulin Human Regular (Novolin R) 0 unit SC ACHS [facility]; Protocol Last Admin: 07/12/18 11:52 Dose: 4 units Methylprednisolone (Solu-Medrol) 60 mg IVP Q6 [facility] Last Admin: 07/12/18 11:50 Dose: 60 mg Pantoprazole Sodium (Protonix Inj) 40 mg IVP DAILY [facility] Last Admin: 07/12/18 10:02 Dose: 40 mg Tramadol HCl (Ultram) 25 mg PO TID PRN PRN Reason: Pain, severe (8-10) - Labs Labs: 07/12/18 08:31 07/12/18 08:31 Attending/Attestation - Attestation I have personally seen and examined this patient.: Yes I have fully participated in the care of the patient.: Yes I have reviewed all pertinent clinical information, including history, physical exam and plan: Yes Notes (Text): 07/12/18 15:54 Medical attending: Patient was seen and examined by me. Reviewed the above note by the resident and agree with the above note This morning the lab work from yesterday afternoon showed there are some very concerning tumor markers including CA 19-9 and CA [address]A. On the CT scan there is findings of concerning areas on the pancreatic head as well. I told the patient about the concerning findings on the Ct of the abd and pelvis as well as the very elevated CA19-9. He doesn't think he has had any changes to the color of his stools however given the weightloss, fatigue, and cahexia he has been having I explained to him that there is high concern for pancreatic malignancy. Patient will need a GI evaluation. Tommorow he is aware there are plans for potential lung biopsy as well. David Wellington
[2018-07-12] MEDS: Albuterol-Ipratrop 3 mg / 0.5 (3 ml) UD INH SCH ×4 (08:29→21:34)
[2018-07-12] MEDS: Budesonide 0.5 mg/2 ml Inhal Susp UD INH SCH ×2 (08:29→21:34)
[2018-07-12 08:39] LABS: BASO % 0.2 % (0.0-2.0); HEMOGLOBIN 12.7 g/dL (12.0-18.0); LYMPH # 0.7 K/uL (1.0-4.3); LYMPH % 5.2 % (20.0-40.0); MEAN CELL VOLUME 97.7 fL (80.0-94.0); MEAN CORPUSCULAR HGB CONC 33.8 g/dL (33.0-37.0); MEAN PLATELET VOLUME 8.7 fL (7.2-11.7); MONO # 0.3 K/uL (0.0-0.8); NEUT # 12.3 K/uL (1.8-7.0); NEUT % 92.6 % (50.0-75.0); PLATELET COUNT 286 K/uL (130-400); RBC 3.85 Mil/uL (4.40-5.90); RED CELL DISTRIBUTION WIDTH 14.5 % (11.5-14.5); WHITE BLOOD COUNT 13.3 K/uL (4.8-10.8)
[2018-07-12 09:02] LABS: ALB/GLOB RATIO 0.6 (1.0-2.1); ALBUMIN 3.1 g/dL (3.5-5.0); ALT/SGPT 29 U/L (21-72); AST/SGOT 56 U/L (17-59); BLOOD UREA NITROGEN 19 mg/dL (9-20); CALCIUM 8.1 mg/dl (8.6-10.4); GFR NON-AFRICAN AMERICAN > 60
[2018-07-12 09:06] LABS: T4 3.22 ug/dL (5.5-11.0)
[2018-07-12] MEDS: Azithromycin 500 MG in Sodium Chloride 0.9% 250 ML IVPB SCH (10:47)
[2018-07-12 10:51] LABS: BANDS 2 % (0-2); LYMPHOCYTE 2 % (20-40); MONOCYTE 1 % (0-10); NEUTROPHIL 95 % (50-75); PLATELET ESTIMATE NORMAL (NORMAL); TOTAL CELLS COUNTED 100
[2018-07-12 10:52] LABS: ANISOCYTOSIS SLIGHT; LARGE PLATELETS PRESENT; TOXIC GRANULATION PRESENT
[2018-07-13] MEDS: Albuterol-Ipratrop 3 mg / 0.5 (3 ml) UD INH SCH ×5 (00:15→20:10)
[2018-07-13] MEDS: MethylPREDNISolone 40 mg Vial IVP SCH ×4 (00:27→18:56)
--- NOTE | 2018-07-13 07:37 | PN ---
DATE: 07/12/2018 ENDOCRINOLOGY FOLLOWUP NOTE LOCATION: Room 567. SUBJECTIVE: This is a 63-year-old male admitted to because of history of interstitial pneumonitis and also normal thyroid function studies. His repeat thyroid study showed a T4 of 3.22 with a free T4 of 0.76. The TSH is still pending at this time. His chemistries showed a BUN of 19, sodium 136, potassium 4.4, chloride 98, CO2 of 34, glucose 144, and creatinine 0.7. He remains clinically euthyroid at this time. ASSESSMENT AND PLAN: This is a 63-year-old male with acute interstitial pneumonitis and possible underlying pulmonary fibrosis and remains clinically euthyroid with superimposed acute sick euthyroid syndrome. At this point, TSH . Martine Ang MD
[2018-07-13] MEDS ORDERED: Iohexol 240 (50 ml) PO ONE (07:45)
[2018-07-13] MEDS: (Novolin R) Insulin Human Regular 100 units/ml vial SC SCH ×4 (07:46→21:38)
[2018-07-13] MEDS: Budesonide 0.5 mg/2 ml Inhal Susp UD INH SCH ×2 (07:50→20:10)
[2018-07-13 08:15] LABS: BASO % 0.2 % (0.0-2.0); LYMPH # 0.5 K/uL (1.0-4.3); LYMPH % 3.7 % (20.0-40.0); MEAN CELL VOLUME 97.2 fL (80.0-94.0); MEAN CORPUSCULAR HEMOGLOBIN 32.5 pg (27.0-31.0); MEAN CORPUSCULAR HGB CONC 33.5 g/dL (33.0-37.0); MEAN PLATELET VOLUME 8.8 fL (7.2-11.7); MONO # 0.2 K/uL (0.0-0.8); MONO % 1.6 % (0.0-10.0); NEUT # 13.2 K/uL (1.8-7.0); NEUT % 94.5 % (50.0-75.0); PLATELET COUNT 292 K/uL (130-400); RED CELL DISTRIBUTION WIDTH 14.7 % (11.5-14.5)
--- NOTE | 2018-07-13 08:30 | CP.PCM.PN ---
<Irasema Gibson - Last Filed: 07/13/18 13:29> Subjective - Date & Time of Evaluation Date of Evaluation: 07/13/18 Time of Evaluation: 07:00 - Subjective Subjective: Patient examined at bedside. No acute events overnight. Patient reports continued dry cough and SOB, improved with O2 via NC. Patient reports he is ambulating, urinating and having formed bowel movement. Denies chest pain, abdominal pain, nausea, diarrhea. Objective - Vital Signs/Intake and Output Vital Signs (last 24 hours): Temp Pulse Resp BP Pulse Ox 98.1 F 90 20 129/74 95 07/13/18 00:00 07/13/18 07:23 07/13/18 00:00 07/13/18 00:00 07/13/18 00:00 Intake and Output: 07/13/18 07/13/18 06:59 18:59 Intake Total 700 Balance 700 - Medications Medications: Current Medications Acetaminophen (Tylenol 325mg Tab) 650 mg PO Q6 PRN PRN Reason: Pain, Mild (1-3) Last Admin: 07/09/18 12:03 Dose: 650 mg Albuterol/Ipratropium (Duoneb 3 Mg/0.5 Mg (3 Ml) Ud) 3 ml INH RQ4 [facility] Last Admin: 07/13/18 08:05 Dose: 3 ml Budesonide (Pulmicort Respules) 0.5 mg INH RQ12 [facility] Last Admin: 07/13/18 07:50 Dose: 0.5 mg Dextrose (Dextrose 50% Inj) 0 ml IV STAT PRN; Protocol PRN Reason: Hypoglycemia Protocol Dextrose (Glutose 15) 0 gm PO ONCE PRN; Protocol PRN Reason: Hypoglycemia Protocol Glucagon (Glucagen Diagnostic Kit) 0 mg IM STAT PRN; Protocol PRN Reason: Hypoglycemia Protocol Guaifenesin/Dextromethorphan (Robitussin Dm) 5 ml PO Q4H PRN PRN Reason: Cough Last Admin: 07/11/18 23:51 Dose: 5 ml Azithromycin 500 mg/ Sodium (Chloride) 250 mls @ 250 mls/hr IVPB DAILY [facility]; Protocol Last Admin: 07/12/18 10:47 Dose: 250 mls/hr Ibuprofen (Motrin Tab) 600 mg PO TID PRN PRN Reason: Pain, moderate (4-7) Last Admin: 07/12/18 17:15 Dose: 600 mg Insulin Human Regular (Novolin R) 0 unit SC ACHS [facility]; Protocol Last Admin: 07/13/18 07:46 Dose: Not Given Methylprednisolone (Solu-Medrol) 60 mg IVP Q6 [facility] Last Admin: 07/13/18 05:48 Dose: 60 mg Pantoprazole Sodium (Protonix Inj) 40 mg IVP DAILY [facility] Last Admin: 07/12/18 10:02 Dose: 40 mg Tramadol HCl (Ultram) 25 mg PO TID PRN PRN Reason: Pain, severe (8-10) - Labs Labs: 07/13/18 07:57 07/12/18 08:31 - Constitutional Appears: Non-toxic, No Acute Distress - Head Exam Head Exam: ATRAUMATIC, NORMAL INSPECTION, NORMOCEPHALIC - Eye Exam Eye Exam: EOMI, Normal appearance - ENT Exam ENT Exam: Mucous Membranes Moist, Normal Exam - Neck Exam Neck Exam: Normal Inspection - Respiratory Exam Respiratory Exam: Decreased Breath Sounds, Rales (B/L), NORMAL BREATHING PATTERN. absent: Wheezes, Respiratory Distress - Cardiovascular Exam Cardiovascular Exam: REGULAR RHYTHM, +S1, +S2. absent: Tachycardia - GI/Abdominal Exam GI & Abdominal Exam: Soft, Normal Bowel Sounds. absent: Distended, Guarding, Tenderness Additional comments: Well healed midline incision noted - Extremities Exam Extremities Exam: absent: Calf Tenderness, Normal Inspection (stasis dermatitis), Pedal Edema - Neurological Exam Neurological Exam: Alert, Awake, Oriented x3 - Psychiatric Exam Psychiatric exam: Normal Affect, Normal Mood - Skin Skin Exam: Dry, Warm Assessment and Plan - Assessment and Plan (Free Text) Assessment: 63 year old male admitted for evaluation and treatment of SOB 2/2 to pulmonary fibrosis/interstitial lung disease, and pancreatic head lesion. Plan: Interstitial pulmonary fibrosis -albuterol, pulmicort -robitussin -Abx, azithromycin -methylprednisolone 60mg IVP q6 -pain control prn Tylenol, ASA, tramadol -Pulm consult, Dr. Vera -IR consult Dr. Steele-possible lung bx when appropriate Pancreatic lesion -f/u pancreatic protocol CT for further eval of pancreatic head lesion -GI consult, Dr. Clifford Leukocytosis -likely 2/2 steroids Hypothyroidism -f/u antibody results -endo consult, Dr. Ang R/O TB -isolation precaution -sputum x1 negative, awaiting 3 neg to d/c isolation Prediabetes -hypoglycemia protocol Ppx -SCD contraindicated due to PVD -protonix 40mg IV qd -heparin 5000U sc q[address] Ragsdale -Irasema Gibson, PGY-1 <Aj Ragsdale - Last Filed: 07/14/18 16:04> Objective - Vital Signs/Intake and Output Vital Signs (last 24 hours): Temp Pulse Resp BP Pulse Ox 97.6 F 89 20 111/73 98 07/14/18 15:00 07/14/18 15:00 07/14/18 15:00 07/14/18 15:00 07/14/18 15:00 Intake and Output: 07/14/18 07/14/18 06:59 18:59 Intake Total 650 Balance 650 - Medications Medications: Current Medications Acetaminophen (Tylenol 325mg Tab) 650 mg PO Q6 PRN PRN Reason: Pain, Mild (1-3) Last Admin: 07/09/18 12:03 Dose: 650 mg Albuterol/Ipratropium (Duoneb 3 Mg/0.5 Mg (3 Ml) Ud) 3 ml INH RQ4 [facility] Last Admin: 07/14/18 08:51 Dose: 3 ml Budesonide (Pulmicort Respules) 0.5 mg INH RQ12 [facility] Last Admin: 07/14/18 08:51 Dose: 0.5 mg Dextrose (Dextrose 50% Inj) 0 ml IV STAT PRN; Protocol PRN Reason: Hypoglycemia Protocol Dextrose (Glutose 15) 0 gm PO ONCE PRN; Protocol PRN Reason: Hypoglycemia Protocol Glucagon (Glucagen Diagnostic Kit) 0 mg IM STAT PRN; Protocol PRN Reason: Hypoglycemia Protocol Guaifenesin/Dextromethorphan (Robitussin Dm) 5 ml PO Q4H PRN PRN Reason: Cough Last Admin: 07/11/18 23:51 Dose: 5 ml Heparin Sodium (Porcine) (Heparin) 5,000 units SC Q12 [facility] Last Admin: 07/14/18 10:43 Dose: 5,000 units Azithromycin 500 mg/ Sodium (Chloride) 250 mls @ 250 mls/hr IVPB DAILY [facility]; Protocol Last Admin: 07/14/18 10:43 Dose: 250 mls/hr Ibuprofen (Motrin Tab) 600 mg PO TID PRN PRN Reason: Pain, moderate (4-7) Last Admin: 07/12/18 17:15 Dose: 600 mg Insulin Human Regular (Novolin R) 0 unit SC ACHS [facility]; Protocol Last Admin: 07/14/18 11:55 Dose: 3 units Methylprednisolone (Solu-Medrol) 60 mg IVP Q6 [facility] Last Admin: 07/14/18 11:56 Dose: 60 mg Multivitamins/Vitamin C (Multi-Delyn Liquid) 5 ml PO DAILY [facility] Pantoprazole Sodium (Protonix Inj) 40 mg IVP DAILY [facility] Last Admin: 07/14/18 10:43 Dose: 40 mg Tramadol HCl (Ultram) 25 mg PO TID PRN PRN Reason: Pain, severe (8-10) Last Admin: 07/14/18 08:29 Dose: 25 mg - Labs Labs: 07/14/18 08:23 07/14/18 08:23 Attending/Attestation - Attestation I have personally seen and examined this patient.: Yes I have fully participated in the care of the patient.: Yes I have reviewed all pertinent clinical information, including history, physical exam and plan: Yes Notes (Text): seen and examined with the resident 1intestitial lung disease 2.Hypoxemia 3.Shortness of breath follow sputum AFB follow up with pulmonary for possible biopsy GI follow up appreciated I agree with the resident's documentation
[2018-07-13 08:36] LABS: ALB/GLOB RATIO 0.7 (1.0-2.1); ALT/SGPT 21 U/L (21-72); AST/SGOT 27 U/L (17-59); BLOOD UREA NITROGEN 24 mg/dL (9-20); GFR NON-AFRICAN AMERICAN > 60
[2018-07-13 09:13] LABS: LYMPHOCYTE 4 % (20-40); MONOCYTE 4 % (0-10); NEUTROPHIL 92 % (50-75); PLATELET ESTIMATE NORMAL (NORMAL); TOTAL CELLS COUNTED 100
[2018-07-13] MEDS: Azithromycin 500 MG in Sodium Chloride 0.9% 250 ML IVPB SCH (09:56)
[2018-07-13] MEDS ORDERED: Iodixanol 320 MG/ML 100 ML BOTTLE IV ONE (10:22)
--- NOTE | 2018-07-13 14:14 | CP.PCM.CON ---
History of Present Illness - History of Present Illness History of Present Illness: GI Service Consult CC: abnl pancreas on CT HPI: 63 year old man admitted with dyspnea, cough, weight loss, depression, abdominal pain. Has been binge drinking alcohol due to depression. Chronic fpc cigarette smoker. Pulmonary disease and interstitial pneumonitis seen on CT. Abd CT showed edematous thickening of pancreatic head and uncinate process. CEA and CA 19-[address] with Pancreas protocol performed earlier today but results not available. Past Patient History - Past Social History Smoking Status: Former Smoker - CARDIAC Hx Hypotension: Yes - MUSCULOSKELETAL/RHEUMATOLOGICAL Hx Falls: Yes - PSYCHIATRIC Hx Substance Use: No - SURGICAL HISTORY Hx Surgeries: Yes Other/Comment: peptic ulcer surgery - ANESTHESIA Hx Anesthesia: No Hx Anesthesia Reactions: No Meds Allergies/Adverse Reactions: Allergies Allergy/AdvReac Type Severity Reaction Status Date / Time No Known Allergies Allergy Unverified 07/08/18 15:44 - Medications Medications: Current Medications Acetaminophen (Tylenol 325mg Tab) 650 mg PO Q6 PRN PRN Reason: Pain, Mild (1-3) Last Admin: 07/09/18 12:03 Dose: 650 mg Albuterol/Ipratropium (Duoneb 3 Mg/0.5 Mg (3 Ml) Ud) 3 ml INH RQ4 [facility] Last Admin: 07/13/18 11:50 Dose: 3 ml Budesonide (Pulmicort Respules) 0.5 mg INH RQ12 [facility] Last Admin: 07/13/18 07:50 Dose: 0.5 mg Dextrose (Dextrose 50% Inj) 0 ml IV STAT PRN; Protocol PRN Reason: Hypoglycemia Protocol Dextrose (Glutose 15) 0 gm PO ONCE PRN; Protocol PRN Reason: Hypoglycemia Protocol Glucagon (Glucagen Diagnostic Kit) 0 mg IM STAT PRN; Protocol PRN Reason: Hypoglycemia Protocol Guaifenesin/Dextromethorphan (Robitussin Dm) 5 ml PO Q4H PRN PRN Reason: Cough Last Admin: 07/11/18 23:51 Dose: 5 ml Heparin Sodium (Porcine) (Heparin) 5,000 units SC Q12 [facility] Azithromycin 500 mg/ Sodium (Chloride) 250 mls @ 250 mls/hr IVPB DAILY [facility]; Protocol Last Admin: 07/13/18 09:56 Dose: 250 mls/hr Ibuprofen (Motrin Tab) 600 mg PO TID PRN PRN Reason: Pain, moderate (4-7) Last Admin: 07/12/18 17:15 Dose: 600 mg Insulin Human Regular (Novolin R) 0 unit SC ACHS [facility]; Protocol Last Admin: 07/13/18 12:28 Dose: 2 units Methylprednisolone (Solu-Medrol) 60 mg IVP Q6 [facility] Last Admin: 07/13/18 11:24 Dose: 60 mg Pantoprazole Sodium (Protonix Inj) 40 mg IVP DAILY [facility] Last Admin: 07/13/18 09:55 Dose: 40 mg Tramadol HCl (Ultram) 25 mg PO TID PRN PRN Reason: Pain, severe (8-10) Physical Exam - Constitutional Appears: In Acute Distress, Chronically Ill, Other (dyspneic and tachypneic) - Eye Exam Eye Exam: absent: Scleral icterus - Respiratory Exam Respiratory Exam: Clear to Auscultation Bilateral - Cardiovascular Exam Cardiovascular Exam: REGULAR RHYTHM - GI/Abdominal Exam GI & Abdominal Exam: Soft. absent: Mass, Tenderness Results - Vital Signs Recent Vital Signs: Last Vital Signs Temp 97.9 F 07/13/18 08:00 Pulse 81 07/13/18 09:45 Resp 20 07/13/18 08:00 BP 134/82 07/13/18 08:00 Pulse Ox 96 07/13/18 08:00 - Labs Result Diagrams: 07/13/18 07:57 07/13/18 07:57 Labs: Laboratory Results - last 24 hr 07/12/18 07/12/18 07/13/18 16:15 21:19 06:28 WBC RBC Hgb Hct MCV MCH MCHC RDW Plt Count MPV Neut % (Auto) Lymph % (Auto) Taylor % (Auto) Eos % (Auto) Baso % (Auto) Neut # (Auto) Lymph # (Auto) Taylor # (Auto) Eos # (Auto) Baso # (Auto) Neutrophils % (Manual) Lymphocytes % (Manual) Monocytes % (Manual) Platelet Estimate RBC Morphology Sodium Potassium Chloride Carbon Dioxide Anion Gap BUN Creatinine Est GFR ( Amer) Est GFR (Non-Af Amer) POC Glucose (mg/dL) 160 H 226 H 146 H Random Glucose Calcium Phosphorus Magnesium Total Bilirubin AST ALT Alkaline Phosphatase Total Protein Albumin Globulin Albumin/Globulin Ratio PAULO 6 Profile 07/13/18 07/13/18 07/13/18 07:57 07:57 11:18 WBC 14.0 H RBC 4.00 L Hgb 13.0 Hct 38.9 MCV 97.2 H MCH 32.5 H MCHC 33.5 RDW 14.7 H Plt Count 292 MPV 8.8 Neut % (Auto) 94.5 H Lymph % (Auto) 3.7 L Taylor % (Auto) 1.6 Eos % (Auto) 0.0 Baso % (Auto) 0.2 Neut # (Auto) 13.2 H Lymph # (Auto) 0.5 L Taylor # (Auto) 0.2 Eos # (Auto) 0.0 Baso # (Auto) 0.0 Neutrophils % (Manual) 92 H Lymphocytes % (Manual) 4 L Monocytes % (Manual) 4 Platelet Estimate Normal RBC Morphology Normal Sodium 136 Potassium 4.5 Chloride 98 Carbon Dioxide 33 H Anion Gap 10 BUN 24 H Creatinine 0.6 L Est GFR ( Amer) > 60 Est GFR (Non-Af Amer) > 60 POC Glucose (mg/dL) 155 H Random Glucose 156 H Calcium 8.0 L Phosphorus 4.2 Magnesium 2.4 H Total Bilirubin 0.3 AST 27 ALT 21 D Alkaline Phosphatase 56 Total Protein 7.5 Albumin 3.0 L Globulin 4.5 H Albumin/Globulin Ratio 0.7 L PAULO 6 Profile 07/13/18 Unknown WBC RBC Hgb Hct MCV MCH MCHC RDW Plt Count MPV Neut % (Auto) Lymph % (Auto) Taylor % (Auto) Eos % (Auto) Baso % (Auto) Neut # (Auto) Lymph # (Auto) Taylor # (Auto) Eos # (Auto) Baso # (Auto) Neutrophils % (Manual) Lymphocytes % (Manual) Monocytes % (Manual) Platelet Estimate RBC Morphology Sodium Potassium Chloride Carbon Dioxide Anion Gap BUN Creatinine Est GFR ( Amer) Est GFR (Non-Af Amer) POC Glucose (mg/dL) Random Glucose Calcium Phosphorus Magnesium Total Bilirubin AST ALT Alkaline Phosphatase Total Protein Albumin Globulin Albumin/Globulin Ratio PAULO 6 Profile Negative Assessment & Plan (1) Pulmonary fibrosis Assessment and Plan: On steroids. management per med/Pulm Status: Acute (2) Abnormal CT of the abdomen Assessment and Plan: Possible pancreatic abnormality on noncontrast CT. CEA can be normally elevated in smokers. Patient has risk factors for pancreatitis and pancreatic cancer. Rec: Check Pancreas Protocol CT scan Status: Acute - Date & Time Date: 07/13/18 Time: 14:18
--- NOTE | 2018-07-13 15:08 | CT ---
Date of service: 07/13/2018 PROCEDURE: CT Abdomen and Pelvis with contrast HISTORY: Noncontrast scan shows prominence of Panc head COMPARISON: CT abdomen pelvis without contrast performed 07/09/18 TECHNIQUE: Contrast dose: 100 mL Visipaque 320 Radiation dose: Total exam DLP = 789.59 mGy-cm. This CT exam was performed using one or more of the following dose reduction techniques: Automated exposure control, adjustment of the mA and/or kV according to patient size, and/or use of iterative reconstruction technique. FINDINGS: LOWER THORAX: Diffuse significant interstitial fibrosis with paraseptal emphysematous changes and bronchiectasis. Scattered regions of confluent and ground-glass opacities. Calcified granuloma, right lung base. LIVER: Unremarkable. GALLBLADDER AND BILE DUCTS: Unremarkable. PANCREAS: Unremarkable. SPLEEN: Unremarkable. ADRENALS: Unremarkable. KIDNEYS AND URETERS: The kidneys enhance symmetrically. No hydronephrosis or obstructing calculus identified. 8 mm too small to characterize right renal hypodensities; statistically likely a cyst. 7 mm too small characterize right renal hypodensity; statistically likely a cyst. VASCULATURE: Narrowing of the celiac artery origin with poststenotic dilatation. Aneurysmal dilatation of the infrarenal abdominal aorta which measures approximately 2.5 x 3.0 x 2.8 cm (AP by transverse by CC dimensions). Atherosclerotic calcifications. BOWEL: Stomach is nondistended. Lack of oral contrast limits evaluation for bowel pathology. Bowel loops appear within normal limits of caliber without evidence of obstruction. PERITONEUM: No significant free fluid. No definite free air. LYMPH NODES: No bulky adenopathy identified. BONES: Mild degenerative changes. OTHER FINDINGS: None. IMPRESSION: Prominence of the pancreatic head without discrete mass, discrete abnormality, or peripancreatic inflammatory changes. Appearance likely reflects normal pancreatic tissue. Recommend clinical correlation and suggest 3-6 month follow-up to confirm. Aneurysmal dilatation of the infrarenal abdominal aorta which measures approximately 2.5 x 3.0 x 2.8 cm (AP by transverse by CC dimensions). Atherosclerotic calcifications. Narrowing of the celiac artery origin with poststenotic dilatation. Correlate clinically for median arcuate ligament syndrome.
--- NOTE | 2018-07-13 17:46 | CP.PCM.PN ---
Subjective - Date & Time of Evaluation Date of Evaluation: 07/13/18 Time of Evaluation: 10:00 - Subjective Subjective: atient seen and examined at bedside, lying down comfortably. Reports continued dry cough and SOB, improved with O2 via NC. Patient had Pancreatic CT today, will follow up on results Preliminary blood cultures negative after 4 days. Gram stain showed moderate PMN WBCs, Rare epithelial cells, few gram negative rods and few gram negative cocci AFB x1 Negative, waiting for 2 more sets Sputum culture showed light growth of yeast species Elevated ESR, rule out autoimmune disease WBC 14.0, BUN 24 on 07/13/18 Continue Duoneb Q4H, Solumedrol, Azithromycin Objective - Vital Signs/Intake and Output Vital Signs (last 24 hours): Temp Pulse Resp BP Pulse Ox 98.2 F 88 18 104/65 95 07/13/18 15:00 07/13/18 16:34 07/13/18 15:00 07/13/18 15:00 07/13/18 15:00 Intake and Output: 07/13/18 07/13/18 06:59 18:59 Intake Total 700 Balance 700 - Medications Medications: Current Medications Acetaminophen (Tylenol 325mg Tab) 650 mg PO Q6 PRN PRN Reason: Pain, Mild (1-3) Last Admin: 07/09/18 12:03 Dose: 650 mg Albuterol/Ipratropium (Duoneb 3 Mg/0.5 Mg (3 Ml) Ud) 3 ml INH RQ4 [facility] Last Admin: 07/13/18 11:50 Dose: 3 ml Budesonide (Pulmicort Respules) 0.5 mg INH RQ12 [facility] Last Admin: 07/13/18 07:50 Dose: 0.5 mg Dextrose (Dextrose 50% Inj) 0 ml IV STAT PRN; Protocol PRN Reason: Hypoglycemia Protocol Dextrose (Glutose 15) 0 gm PO ONCE PRN; Protocol PRN Reason: Hypoglycemia Protocol Glucagon (Glucagen Diagnostic Kit) 0 mg IM STAT PRN; Protocol PRN Reason: Hypoglycemia Protocol Guaifenesin/Dextromethorphan (Robitussin Dm) 5 ml PO Q4H PRN PRN Reason: Cough Last Admin: 07/11/18 23:51 Dose: 5 ml Heparin Sodium (Porcine) (Heparin) 5,000 units SC Q12 [facility] Azithromycin 500 mg/ Sodium (Chloride) 250 mls @ 250 mls/hr IVPB DAILY [facility]; Protocol Last Admin: 07/13/18 09:56 Dose: 250 mls/hr Ibuprofen (Motrin Tab) 600 mg PO TID PRN PRN Reason: Pain, moderate (4-7) Last Admin: 07/12/18 17:15 Dose: 600 mg Insulin Human Regular (Novolin R) 0 unit SC ACHS [facility]; Protocol Last Admin: 07/13/18 12:28 Dose: 2 units Methylprednisolone (Solu-Medrol) 60 mg IVP Q6 [facility] Last Admin: 07/13/18 11:24 Dose: 60 mg Pantoprazole Sodium (Protonix Inj) 40 mg IVP DAILY [facility] Last Admin: 07/13/18 09:55 Dose: 40 mg Tramadol HCl (Ultram) 25 mg PO TID PRN PRN Reason: Pain, severe (8-10) - Labs Labs: 07/13/18 07:57 07/13/18 07:57 Assessment and Plan (1) Pulmonary fibrosis Status: Acute (2) Chronic respiratory failure with hypoxia Status: Acute
--- NOTE | 2018-07-14 00:50 | PN ---
DATE: 07/13/2018 ENDOCRINOLOGY FOLLOWUP NOTE SUBJECTIVE: This is a 63-year-old male with recent admission for acute interstitial pneumonitis and currently also being followed closely for metabolic management because of abnormal thyroid function studies. LABORATORY DATA: His latest thyroid studies showed a T4 of 3.22 with a free T4 of 0.76 and a TSH of 0.17. His chemistries showed a BUN of 24, sodium 136, potassium 4.5, chloride 98, CO2 33, glucose 156, and creatinine 0.6. ASSESSMENT AND PLAN: Slightly elevated glycemic fluctuations are expected with the intercurrent IV steroid therapy given as a high dose of Solu-Medrol of 60 mg IV every 6 hours as ordered. His thyroid biochemical indices acute sick euthyroid syndrome with superimposed TSH suppression by the IV steroids as given. We will obtain serial chemistries and supplement accordingly as needed. We will follow. Martine Ang MD
[2018-07-14] MEDS: Albuterol-Ipratrop 3 mg / 0.5 (3 ml) UD INH SCH ×6 (00:58→19:25)
[2018-07-14] MEDS: MethylPREDNISolone 40 mg Vial IVP SCH ×4 (06:07→18:58)
--- NOTE | 2018-07-14 07:20 | CP.PCM.PN ---
Subjective - Date & Time of Evaluation Date of Evaluation: 07/14/18 Time of Evaluation: 09:00 - Subjective Subjective: Patient examined at bedside. No acute events overnight. Patient reports 3 episodes of loose stools in morning, no blood noted. Patient reports persistent SOB, temporarily improved by breathing treatments. Patient reports cough, with occasional productive white sputum. Denies headache, chest pain, abdominal pain, nausea. Objective - Vital Signs/Intake and Output Vital Signs (last 24 hours): Temp Pulse Resp BP Pulse Ox 97.7 F 90 20 134/80 95 07/13/18 23:50 07/14/18 01:33 07/13/18 23:50 07/13/18 23:50 07/13/18 23:50 - Medications Medications: Current Medications Acetaminophen (Tylenol 325mg Tab) 650 mg PO Q6 PRN PRN Reason: Pain, Mild (1-3) Last Admin: 07/09/18 12:03 Dose: 650 mg Albuterol/Ipratropium (Duoneb 3 Mg/0.5 Mg (3 Ml) Ud) 3 ml INH RQ4 [facility] Last Admin: 07/14/18 03:06 Dose: Not Given Budesonide (Pulmicort Respules) 0.5 mg INH RQ12 [facility] Last Admin: 07/13/18 20:10 Dose: 0.5 mg Dextrose (Dextrose 50% Inj) 0 ml IV STAT PRN; Protocol PRN Reason: Hypoglycemia Protocol Dextrose (Glutose 15) 0 gm PO ONCE PRN; Protocol PRN Reason: Hypoglycemia Protocol Glucagon (Glucagen Diagnostic Kit) 0 mg IM STAT PRN; Protocol PRN Reason: Hypoglycemia Protocol Guaifenesin/Dextromethorphan (Robitussin Dm) 5 ml PO Q4H PRN PRN Reason: Cough Last Admin: 07/11/18 23:51 Dose: 5 ml Heparin Sodium (Porcine) (Heparin) 5,000 units SC Q12 [facility] Last Admin: 07/13/18 21:37 Dose: 5,000 units Azithromycin 500 mg/ Sodium (Chloride) 250 mls @ 250 mls/hr IVPB DAILY [facility]; Protocol Last Admin: 07/13/18 09:56 Dose: 250 mls/hr Ibuprofen (Motrin Tab) 600 mg PO TID PRN PRN Reason: Pain, moderate (4-7) Last Admin: 07/12/18 17:15 Dose: 600 mg Insulin Human Regular (Novolin R) 0 unit SC ACHS [facility]; Protocol Last Admin: 07/13/18 21:38 Dose: Not Given Methylprednisolone (Solu-Medrol) 60 mg IVP Q6 [facility] Last Admin: 07/14/18 06:07 Dose: 60 mg Pantoprazole Sodium (Protonix Inj) 40 mg IVP DAILY [facility] Last Admin: 07/13/18 09:55 Dose: 40 mg Tramadol HCl (Ultram) 25 mg PO TID PRN PRN Reason: Pain, severe (8-10) - Labs Labs: 07/13/18 07:57 07/13/18 07:57 - Constitutional Appears: Non-toxic, No Acute Distress - Head Exam Head Exam: ATRAUMATIC, NORMAL INSPECTION, NORMOCEPHALIC - Eye Exam Eye Exam: EOMI, Normal appearance - ENT Exam ENT Exam: Mucous Membranes Moist, Normal Exam - Neck Exam Neck Exam: Full ROM, Normal Inspection - Respiratory Exam Respiratory Exam: Accessory Muscle Use, Decreased Breath Sounds, Rales (bilateral lower lobes). absent: NORMAL BREATHING PATTERN (tachypneic) - Cardiovascular Exam Cardiovascular Exam: REGULAR RHYTHM, +S1, +S2 - GI/Abdominal Exam GI & Abdominal Exam: Soft, Normal Bowel Sounds. absent: Distended, Tenderness - Extremities Exam Extremities Exam: absent: Calf Tenderness, Normal Inspection (stasis dermatitis LE skin changes), Pedal Edema - Neurological Exam Neurological Exam: Alert, Awake, Oriented x3 - Psychiatric Exam Psychiatric exam: Normal Affect, Normal Mood - Skin Skin Exam: Dry, Intact, Warm Assessment and Plan - Assessment and Plan (Free Text) Assessment: 63 year old male admitted for evaluation and treatment of SOB 2/2 to pulmonary fibrosis/interstitial lung disease, and pancreatic head lesion. Plan: Interstitial pulmonary fibrosis -O2 NC, continuous -albuterol, pulmicort -robitussin -Abx, azithromycin -methylprednisolone 60mg IVP q6 -pain control prn Tylenol, Ibuprofen, tramadol -Pulm consult, Dr. Vera -IR consult Dr. Steele-possible lung bx when appropriate Pancreatic lesion -pancreatic protocol CT: lesion consistent with pancreatic tissue -GI consult, Dr. Clifford Leukocytosis -likely 2/2 steroids Hypothyroidism -f/u antibody results, negative thus far -endo consult, Dr. Ang R/O TB -isolation precaution -sputum x1 negative, awaiting 3 neg to d/c isolation Prediabetes -ISS -hypoglycemia protocol Electrolyte imbalance -hyperphos/hypermag -monitor and correct accordingly Ppx -SCD contraindicated due to PVD -protonix 40mg IV qd -heparin 5000U sc q[address] Ragsdale -Irasema Gibson, PGY-1
[2018-07-14] MEDS: (Novolin R) Insulin Human Regular 100 units/ml vial SC SCH ×3 (07:52→18:59)
[2018-07-14] MEDS: Tramadol 25 mg PO PRN (08:29)
[2018-07-14 08:30] LABS: BASO % 0.3 % (0.0-2.0); EOS % 0.1 % (0.0-4.0); HEMOGLOBIN 13.5 g/dL (12.0-18.0); LYMPH # 0.6 K/uL (1.0-4.3); LYMPH % 4.4 % (20.0-40.0); MEAN CELL VOLUME 97.4 fL (80.0-94.0); MEAN CORPUSCULAR HGB CONC 32.9 g/dL (33.0-37.0); MEAN PLATELET VOLUME 8.9 fL (7.2-11.7); MONO # 0.4 K/uL (0.0-0.8); MONO % 3.2 % (0.0-10.0); NEUT # 12.3 K/uL (1.8-7.0); PLATELET COUNT 297 K/uL (130-400); WHITE BLOOD COUNT 13.4 K/uL (4.8-10.8)
[2018-07-14] MEDS: Budesonide 0.5 mg/2 ml Inhal Susp UD INH SCH ×2 (08:51→19:25)
[2018-07-14 09:16] LABS: LYMPHOCYTE 2 % (20-40); MONOCYTE 6 % (0-10); NEUTROPHIL 92 % (50-75); TOTAL CELLS COUNTED 100
[2018-07-14 09:17] LABS: PLATELET ESTIMATE NORMAL (NORMAL)
[2018-07-14 09:26] LABS: BLOOD UREA NITROGEN 30 mg/dL (9-20); GFR NON-AFRICAN AMERICAN > 60
[2018-07-14 09:27] LABS: ALBUMIN 2.8 g/dL (3.5-5.0); CALCIUM 7.8 mg/dl (8.6-10.4)
[2018-07-14 09:28] LABS: ALB/GLOB RATIO 0.6 (1.0-2.1); ALT/SGPT 23 U/L (21-72); AST/SGOT 33 U/L (17-59)
[2018-07-14] MEDS: Azithromycin 500 MG in Sodium Chloride 0.9% 250 ML IVPB SCH (10:43)
[2018-07-14 16:42] LABS: INR 1.3
--- NOTE | 2018-07-14 17:35 | CP.PCM.PN ---
Subjective - Date & Time of Evaluation Date of Evaluation: 07/14/18 Time of Evaluation: 11:20 - Subjective Subjective: Patient seen and examined at bedside, lying down comfortably. Reports continued dry cough and SOB, improved with O2 via NC. Pancreatic CT (07/13/18): Prominence of pancreatic head without discrete mass, abnormality or peripancreatic inflammatory changes. Likely reflects normal pancreatic tissue. Recommended clinical correlation and suggest 3-6 month follow-up to confirm. AFB x1 Negative, waiting for 2 more sets Sputum culture showed light growth of yeast species Elevated ESR. PAULO 6 Profile Negative WBC 13.4, BUN 30 on 07/14/18 Continue Duoneb Q4H, Solumedrol, Azithromycin Fiberoptic bronchoscopy and biopsy tomorrow Objective - Vital Signs/Intake and Output Vital Signs (last 24 hours): Temp Pulse Resp BP Pulse Ox 97.6 F 89 20 111/73 98 07/14/18 15:00 07/14/18 15:00 07/14/18 15:00 07/14/18 15:00 07/14/18 15:00 Intake and Output: 07/14/18 07/14/18 06:59 18:59 Intake Total 650 Balance 650 - Medications Medications: Current Medications Acetaminophen (Tylenol 325mg Tab) 650 mg PO Q6 PRN PRN Reason: Pain, Mild (1-3) Last Admin: 07/09/18 12:03 Dose: 650 mg Albuterol/Ipratropium (Duoneb 3 Mg/0.5 Mg (3 Ml) Ud) 3 ml INH RQ4 [facility] Last Admin: 07/14/18 16:27 Dose: Not Given Budesonide (Pulmicort Respules) 0.5 mg INH RQ12 [facility] Last Admin: 07/14/18 08:51 Dose: 0.5 mg Dextrose (Dextrose 50% Inj) 0 ml IV STAT PRN; Protocol PRN Reason: Hypoglycemia Protocol Dextrose (Glutose 15) 0 gm PO ONCE PRN; Protocol PRN Reason: Hypoglycemia Protocol Glucagon (Glucagen Diagnostic Kit) 0 mg IM STAT PRN; Protocol PRN Reason: Hypoglycemia Protocol Guaifenesin/Dextromethorphan (Robitussin Dm) 5 ml PO Q4H PRN PRN Reason: Cough Last Admin: 07/11/18 23:51 Dose: 5 ml Heparin Sodium (Porcine) (Heparin) 5,000 units SC Q12 [facility] Last Admin: 07/14/18 10:43 Dose: 5,000 units Azithromycin 500 mg/ Sodium (Chloride) 250 mls @ 250 mls/hr IVPB DAILY [facility]; Protocol Last Admin: 07/14/18 10:43 Dose: 250 mls/hr Ibuprofen (Motrin Tab) 600 mg PO TID PRN PRN Reason: Pain, moderate (4-7) Last Admin: 07/12/18 17:15 Dose: 600 mg Insulin Human Regular (Novolin R) 0 unit SC ACHS [facility]; Protocol Last Admin: 07/14/18 11:55 Dose: 3 units Methylprednisolone (Solu-Medrol) 60 mg IVP Q6 [facility] Last Admin: 07/14/18 11:56 Dose: 60 mg Multivitamins/Vitamin C (Multi-Delyn Liquid) 5 ml PO DAILY [facility] Pantoprazole Sodium (Protonix Inj) 40 mg IVP DAILY [facility] Last Admin: 07/14/18 10:43 Dose: 40 mg Tramadol HCl (Ultram) 25 mg PO TID PRN PRN Reason: Pain, severe (8-10) Last Admin: 07/14/18 08:29 Dose: 25 mg - Labs Labs: 07/14/18 08:23 07/14/18 08:23 PT 14.0 SECONDS (9.7-12.2) H 07/14/18 16:22 INR 1.3 07/14/18 16:22 APTT 32 SECONDS (21-34) 07/14/18 16:22 Assessment and Plan (1) Pulmonary fibrosis Status: Acute (2) Chronic respiratory failure with hypoxia Status: Acute
[2018-07-14] MEDS: Multiple Vitamins Oral Solution PO SCH (18:59)
[2018-07-15] MEDS: MethylPREDNISolone 40 mg Vial IVP SCH ×4 (00:34→18:33)
[2018-07-15] MEDS: Albuterol-Ipratrop 3 mg / 0.5 (3 ml) UD INH SCH ×7 (01:02→23:46)
--- NOTE | 2018-07-15 07:30 | CP.PCM.PN ---
<Brandie Varela - Last Filed: 07/15/18 16:55> Subjective - Date & Time of Evaluation Date of Evaluation: 07/15/18 Time of Evaluation: 07:29 - Subjective Subjective: PGY-1 Brandie Varela D.O. Medicine progress note for Dr. Ragsdale's service: Patient was seen and examined this morning. His breathing is the same- comfort able at rest but short of breath on exertion. Patient is eating and sleeping well. Cough is present but improved. He is NPO for bronchoscopy today. Objective - Vital Signs/Intake and Output Vital Signs (last 24 hours): Temp Pulse Resp BP Pulse Ox 97.6 F 78 18 146/81 98 07/15/18 07:00 07/15/18 07:00 07/15/18 07:00 07/15/18 07:00 07/15/18 07:00 Intake and Output: 07/15/18 07/15/18 06:59 18:59 Intake Total 23 Balance 23 - Medications Medications: Current Medications Acetaminophen (Tylenol 325mg Tab) 650 mg PO Q6 PRN PRN Reason: Pain, Mild (1-3) Last Admin: 07/09/18 12:03 Dose: 650 mg Albuterol/Ipratropium (Duoneb 3 Mg/0.5 Mg (3 Ml) Ud) 3 ml INH RQ4 [facility] Last Admin: 07/15/18 04:27 Dose: Not Given Budesonide (Pulmicort Respules) 0.5 mg INH RQ12 [facility] Last Admin: 07/14/18 19:25 Dose: 0.5 mg Dextrose (Dextrose 50% Inj) 0 ml IV STAT PRN; Protocol PRN Reason: Hypoglycemia Protocol Dextrose (Glutose 15) 0 gm PO ONCE PRN; Protocol PRN Reason: Hypoglycemia Protocol Glucagon (Glucagen Diagnostic Kit) 0 mg IM STAT PRN; Protocol PRN Reason: Hypoglycemia Protocol Guaifenesin/Dextromethorphan (Robitussin Dm) 5 ml PO Q4H PRN PRN Reason: Cough Last Admin: 07/11/18 23:51 Dose: 5 ml Heparin Sodium (Porcine) (Heparin) 5,000 units SC Q12 [facility] Last Admin: 07/14/18 22:41 Dose: Not Given Azithromycin 500 mg/ Sodium (Chloride) 250 mls @ 250 mls/hr IVPB DAILY [facility]; Protocol Last Admin: 07/14/18 10:43 Dose: 250 mls/hr Ibuprofen (Motrin Tab) 600 mg PO TID PRN PRN Reason: Pain, moderate (4-7) Last Admin: 07/12/18 17:15 Dose: 600 mg Insulin Human Regular (Novolin R) 0 unit SC ACHS [facility]; Protocol Last Admin: 07/14/18 18:59 Dose: 3 units Methylprednisolone (Solu-Medrol) 60 mg IVP Q6 [facility] Last Admin: 07/15/18 05:42 Dose: 60 mg Multivitamins/Vitamin C (Multi-Delyn Liquid) 5 ml PO DAILY [facility] Last Admin: 07/14/18 18:59 Dose: 5 ml Pantoprazole Sodium (Protonix Inj) 40 mg IVP DAILY [facility] Last Admin: 07/14/18 10:43 Dose: 40 mg Tramadol HCl (Ultram) 25 mg PO TID PRN PRN Reason: Pain, severe (8-10) Last Admin: 07/14/18 08:29 Dose: 25 mg - Labs Labs: 07/14/18 08:23 07/14/18 08:23 PT 14.0 SECONDS (9.7-12.2) H 07/14/18 16:22 INR 1.3 07/14/18 16:22 APTT 32 SECONDS (21-34) 07/14/18 16:22 - Constitutional Appears: No Acute Distress, Cachectic - Head Exam Head Exam: ATRAUMATIC, NORMAL INSPECTION - Eye Exam Eye Exam: EOMI, Normal appearance, PERRL - ENT Exam ENT Exam: Mucous Membranes Moist - Neck Exam Neck Exam: Normal Inspection - Respiratory Exam Respiratory Exam: Decreased Breath Sounds, Rales, Rhonchi. absent: Respiratory Distress - Cardiovascular Exam Cardiovascular Exam: REGULAR RHYTHM, +S1, +S2 - GI/Abdominal Exam GI & Abdominal Exam: Soft. absent: Tenderness - Rectal Exam Rectal Exam: Deferred - Extremities Exam Extremities Exam: Normal Inspection. absent: Pedal Edema - Neurological Exam Neurological Exam: Alert, Awake, CN II-XII Intact, Oriented x3 - Psychiatric Exam Psychiatric exam: Normal Affect, Normal Mood - Skin Skin Exam: Dry, Intact, Normal Color, Warm Assessment and Plan - Assessment and Plan (Free Text) Assessment: Patient is a 63 yo male with a history of pre-DM and hypotension not on any meds who presented to ED with SOB, cough, and weakness. Patient has a significant smoking history- 20 pk yrs and quit 1 month ago. 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 Imaging shows extensive interstitial pulmonary disease as well as pancreatic head abnormalities. Tumor markers elevated. Patient is no longer requiring intermittent BiPAP. Patient in airborne isolation until r/o TB. Elevated tumor markers. Consulted GI for further pancreas work-up- will need repeat imaging as outpatient. Patient scheduled for bronchoscopy with Bx today. Plan: Interstitial pulmonary fibrosis- suspect interstitial lung disease due to smoking and/or exposures, r/o cancer, r/o TB (homeless, from [place], no BCG vaccine) - Respiratory distress on admission, improving - Airborne isolation- pending one more negative AFB sputum - BiPAP PRN - Afebrile - CT head: no acute findings - CTA head/neck: no significant stenoses or abnormalities - CXR: peripheral interstitial and to lesser extent confluent changes bilaterally likely chronic in nature - CT chest: Findings consistent with diffuse significant interstitial fibrosis with what probably represents paraseptal emphysematous changes and bron chiectasis. There are scattered areas of confluent and ground-glass opacities. Calcified granuloma right lung base. There are mildly enlarged paratracheal and subcarinal lymph nodes - Echo: EF 70%, no diastolic dysfunction, mild-mod TR, mild-mod pulm HTN (44 mmHg), no pericardial effusion - UDS negative - PPD placed- negative 07/11, negative 07/12 - Quantiferon indeterminate - HIV negative - LDH elevated 778 - Rapid flu negative - Mycoplasma negative - ProBNP 1540 - ESR 106 - Trop negative x2 - Blood Cx no growth - Sputum Cx: yeast - Sputum AFB negative x2 - PAULO negative - SRP Abs pending - F/u bronchoscopy Bx results - Duoneb Q4H [facility] - Pulmicort Q12H - Solumedrol 60mg IVP Q6H - Robitussin DM 5 mL PO Q4H PRN - Azithro 500 mg IVPB daily- started 07/09 - Ceftriaxone 1 g IVPB daily- started 07/09 - Tylenol 650 mg PO Q6H PRN - Ibuprofen 600 mg PO TID PRN - Tramadol 25 mg PO TID PRN - ICU consulted- does not require critical care at this time - Pulmonology consulted (Chuy)- w/u connective tissue disease, continue steroids, bronchoscopy today 07/15 - IR consulted (Cedric)- possible lung Bx Pancreatic abnormality - CT A/P: Question enlargement of the pancreatic head/uncinate process. It is unclear if this finding is the results of edematous pancreas/mass or collapsed adjacent duodenum which is difficult to distinguish. Recommend follow-up pancreatic CT for further assessment. - Pancreatic CT: Prominence of pancreatic head without discrete mass, likely reflects normal tissue. Recommend f/u in 3-6 months. - Recent weight loss - CEA elevated (6.3), CA 19-9 elevated (215), CA 125 elevated (46.8) - AFP wnl (1.4) - GI consulted (Venessa) Acute sick euthyroid syndrome - TSH low (0.05, 0.17)- suppression exacerbated by IV steroids - Free T4 wnl/low (1.37, 0.76), tot T4 low (3.24, 3.22), T3 wnl (2.89) - Thyroid Abs negative - Endocrinology consulted (Sav)- serial labs H/o pre-diabetes mellitus - A1c 5.5 - Hypoglycemic protocol - Accuchecks ACHS with ISS Pulsating abdominal mass- likely palpable due to thin body habitus - Abd u/s: no aortic aneurysm - CT A/P: 2.1 x 2.9 x 3.6 cm aneurysmal dilatation of the distal aorta. Moderate constipation. - Hepatitis panel negative Dysuria and flank pain, resolved - UA: 2+ blood, 15 RBC - Urine Cx no growth - CT A/P: no abnormalities noted Ppx: VTE: SCDs, heparin 5000 units Q8H GI: PTX 40 mg PO daily Dietary supplements: Ensure Enlive TID Code status: full code Case was discussed with attending, Dr. Ragsdale. <Aj Ragsdale - Last Filed: 07/16/18 18:04> Objective - Vital Signs/Intake and Output Vital Signs (last 24 hours): Temp Pulse Resp BP Pulse Ox 97.9 F 91 H 20 121/73 98 07/16/18 16:45 07/16/18 16:45 07/16/18 16:45 07/16/18 16:45 07/16/18 16:45 Intake and Output: 07/16/18 07/16/18 06:59 18:59 Intake Total 400 Balance 400 - Medications Medications: Current Medications Acetaminophen (Tylenol 325mg Tab) 650 mg PO Q6 PRN PRN Reason: Pain, Mild (1-3) Last Admin: 07/09/18 12:03 Dose: 650 mg Albuterol/Ipratropium (Duoneb 3 Mg/0.5 Mg (3 Ml) Ud) 3 ml INH RQ4 [facility] Last Admin: 07/16/18 12:20 Dose: 3 ml Budesonide (Pulmicort Respules) 0.5 mg INH RQ12 [facility] Last Admin: 07/16/18 07:54 Dose: 0.5 mg Dextrose (Dextrose 50% Inj) 0 ml IV STAT PRN; Protocol PRN Reason: Hypoglycemia Protocol Dextrose (Glutose 15) 0 gm PO ONCE PRN; Protocol PRN Reason: Hypoglycemia Protocol Glucagon (Glucagen Diagnostic Kit) 0 mg IM STAT PRN; Protocol PRN Reason: Hypoglycemia Protocol Guaifenesin/Dextromethorphan (Robitussin Dm) 5 ml PO Q4H PRN PRN Reason: Cough Last Admin: 07/16/18 10:57 Dose: 5 ml Heparin Sodium (Porcine) (Heparin) 5,000 units SC Q12 [facility] Last Admin: 07/16/18 10:58 Dose: 5,000 units Azithromycin 500 mg/ Sodium (Chloride) 250 mls @ 250 mls/hr IVPB DAILY [facility]; Protocol Last Admin: 07/16/18 12:13 Dose: 250 mls/hr Piperacillin Sod/Tazobactam Sod (Zosyn 3.375 Gm Iv Premix) 3.375 gm in 50 mls @ 100 mls/hr IVPB Q6H [facility]; Protocol Ibuprofen (Motrin Tab) 600 mg PO TID PRN PRN Reason: Pain, moderate (4-7) Last Admin: 07/12/18 17:15 Dose: 600 mg Insulin Human Regular (Novolin R) 0 unit SC ACHS [facility]; Protocol Last Admin: 07/16/18 12:18 Dose: 3 units Methylprednisolone (Solu-Medrol) 60 mg IVP Q6 [facility] Last Admin: 07/16/18 15:50 Dose: 60 mg Multivitamins/Vitamin C (Multi-Delyn Liquid) 5 ml PO DAILY [facility] Last Admin: 07/16/18 10:57 Dose: 5 ml Pantoprazole Sodium (Protonix Inj) 40 mg IVP DAILY [facility] Last Admin: 07/16/18 10:57 Dose: 40 mg Tramadol HCl (Ultram) 25 mg PO TID PRN PRN Reason: Pain, severe (8-10) Last Admin: 07/14/18 08:29 Dose: 25 mg - Labs Labs: 07/16/18 08:21 07/16/18 08:21 PT 14.0 SECONDS (9.7-12.2) H 07/14/18 16:22 INR 1.3 07/14/18 16:22 APTT 32 SECONDS (21-34) 07/14/18 16:22 Attending/Attestation - Attestation I have personally seen and examined this patient.: Yes I have fully participated in the care of the patient.: Yes I have reviewed all pertinent clinical information, including history, physical exam and plan: Yes Notes (Text): Seen and examined this morning. No changes s/p Brochoscopy x ray after bronchoscopy reviewed
[2018-07-15 08:05] LABS: BASO % 0.3 % (0.0-2.0); EOS % 0.1 % (0.0-4.0); HEMOGLOBIN 13.5 g/dL (12.0-18.0); LYMPH # 0.5 K/uL (1.0-4.3); LYMPH % 3.5 % (20.0-40.0); MEAN CELL VOLUME 97.8 fL (80.0-94.0); MEAN CORPUSCULAR HEMOGLOBIN 32.5 pg (27.0-31.0); MEAN CORPUSCULAR HGB CONC 33.2 g/dL (33.0-37.0); MEAN PLATELET VOLUME 8.8 fL (7.2-11.7); MONO # 0.4 K/uL (0.0-0.8); MONO % 3.1 % (0.0-10.0); NEUT # 12.7 K/uL (1.8-7.0); PLATELET COUNT 295 K/uL (130-400); RBC 4.15 Mil/uL (4.40-5.90); RED CELL DISTRIBUTION WIDTH 14.9 % (11.5-14.5); WHITE BLOOD COUNT 13.7 K/uL (4.8-10.8)
[2018-07-15 08:38] LABS: ALB/GLOB RATIO 0.7 (1.0-2.1); ALBUMIN 2.8 g/dL (3.5-5.0); ALT/SGPT 21 U/L (21-72); AST/SGOT 22 U/L (17-59); BLOOD UREA NITROGEN 28 mg/dL (9-20); GFR NON-AFRICAN AMERICAN > 60
[2018-07-15] MEDS: (Novolin R) Insulin Human Regular 100 units/ml vial SC SCH ×4 (08:41→21:29)
[2018-07-15 08:43] LABS: LYMPHOCYTE 3 % (20-40); MONOCYTE 1 % (0-10); NEUTROPHIL 96 % (50-75); PLATELET ESTIMATE NORMAL (NORMAL); TOTAL CELLS COUNTED 100
[2018-07-15] MEDS: Budesonide 0.5 mg/2 ml Inhal Susp UD INH SCH (08:44)
[2018-07-15] MEDS: guaiFENesin DM 100 mg-10 mg/5 ml UD PO PRN (10:24)
[2018-07-15] MEDS: Multiple Vitamins Oral Solution PO SCH (10:24)
[2018-07-15] MEDS: Azithromycin 500 MG in Sodium Chloride 0.9% 250 ML IVPB SCH (10:25)
[2018-07-15] MEDS ORDERED: Sodium Chloride 0.9% 0 ML IV ONE (10:59)
[2018-07-15] MEDS ORDERED: Lidocaine 2% MPF (5 ml) Inj ONE (11:00)
[2018-07-15] MEDS ORDERED: EPINEPHrine 1 mg/ml (1:1000) Inj ONE (11:00)
[2018-07-15] MEDS ORDERED: Propofol 10 mg/ml Inj (20 ML) ONE ×2 (13:05→13:19)
[2018-07-15] MEDS ORDERED: HYDROmorphone 0.5 mg/0.5 ml ISec IVP PRN (13:41)
--- NOTE | 2018-07-15 13:51 | RAD ---
Date of service: 07/15/2018 PROCEDURE: Intraoperative Fluoroscopy. HISTORY: PULMONARY FIBROSIS FINDINGS: Fluoroscopic assistance was provided. Fluoroscopy time = 50.0 sec. Radiation dose = 0.28621 mGy-cm. Please refer to the operative report from..
--- NOTE | 2018-07-15 14:54 | RAD ---
Date of service: 07/15/2018 HISTORY: R/O PTX S/P BRONCH W/BX'S RIGHT LUNG COMPARISON: No prior. FINDINGS: LUNGS: Extensive and diffuse bilateral interstitial fibrosis again noted. Possibility of superimposed pneumonia not excluded.. PLEURA: No significant pleural effusion identified, no pneumothorax apparent. CARDIOVASCULAR: Mild aortic atherosclerotic calcification present. Heart appears borderline/mildly enlarged.. .. OSSEOUS STRUCTURES: No significant abnormalities. VISUALIZED UPPER ABDOMEN: Normal. OTHER FINDINGS: None. IMPRESSION: No definitive evidence of pneumothorax seen on the current study. Extensive and diffuse bilateral interstitial fibrosis. Note the possibility of superimposed pneumonia not excluded.. Note that the possibility of superimposed pneumonia not excluded
[2018-07-15 15:42] LABS: TSI 167 % baseline (<140)
[2018-07-15 15:42] LABS: TSI 92 % baseline (<140)
--- NOTE | 2018-07-15 16:30 | CP.PCM.PN ---
Subjective - Date & Time of Evaluation Date of Evaluation: 07/15/18 Time of Evaluation: 12:15 - Subjective Subjective: Patient seen and examined at bedside, lying down comfortably. Afebrile and in no acute distress. Reports continued dry cough and SOB, improved with O2 via NC. AFB x 2negative, Sputum culture showed light growth of yeast species. Elevated ESR. PAULO 6 Profile Negative. Objective - Vital Signs/Intake and Output Vital Signs (last 24 hours): Temp Pulse Resp BP Pulse Ox 98 F 79 19 160/94 H 98 07/15/18 15:30 07/15/18 15:30 07/15/18 15:30 07/15/18 15:30 07/15/18 15:30 Intake and Output: 07/15/18 07/15/18 06:59 18:59 Intake Total 23 350 Balance 23 350 - Medications Medications: Current Medications Acetaminophen (Tylenol 325mg Tab) 650 mg PO Q6 PRN PRN Reason: Pain, Mild (1-3) Last Admin: 07/09/18 12:03 Dose: 650 mg Albuterol/Ipratropium (Duoneb 3 Mg/0.5 Mg (3 Ml) Ud) 3 ml INH RQ4 [facility] Last Admin: 07/15/18 11:53 Dose: 3 ml Budesonide (Pulmicort Respules) 0.5 mg INH RQ12 [facility] Last Admin: 07/15/18 08:44 Dose: 0.5 mg Dextrose (Dextrose 50% Inj) 0 ml IV STAT PRN; Protocol PRN Reason: Hypoglycemia Protocol Dextrose (Glutose 15) 0 gm PO ONCE PRN; Protocol PRN Reason: Hypoglycemia Protocol Glucagon (Glucagen Diagnostic Kit) 0 mg IM STAT PRN; Protocol PRN Reason: Hypoglycemia Protocol Guaifenesin/Dextromethorphan (Robitussin Dm) 5 ml PO Q4H PRN PRN Reason: Cough Last Admin: 07/15/18 10:24 Dose: 5 ml Heparin Sodium (Porcine) (Heparin) 5,000 units SC Q12 [facility] Last Admin: 07/14/18 22:41 Dose: Not Given Azithromycin 500 mg/ Sodium (Chloride) 250 mls @ 250 mls/hr IVPB DAILY [facility]; Protocol Last Admin: 07/15/18 10:25 Dose: 250 mls/hr Ibuprofen (Motrin Tab) 600 mg PO TID PRN PRN Reason: Pain, moderate (4-7) Last Admin: 07/12/18 17:15 Dose: 600 mg Insulin Human Regular (Novolin R) 0 unit SC ACHS [facility]; Protocol Last Admin: 07/15/18 12:08 Dose: Not Given Methylprednisolone (Solu-Medrol) 60 mg IVP Q6 [facility] Last Admin: 07/15/18 12:30 Dose: 60 mg Multivitamins/Vitamin C (Multi-Delyn Liquid) 5 ml PO DAILY [facility] Last Admin: 07/15/18 10:24 Dose: 5 ml Pantoprazole Sodium (Protonix Inj) 40 mg IVP DAILY [facility] Last Admin: 07/15/18 10:25 Dose: 40 mg Tramadol HCl (Ultram) 25 mg PO TID PRN PRN Reason: Pain, severe (8-10) Last Admin: 07/14/18 08:29 Dose: 25 mg - Labs Labs: 07/15/18 07:58 07/15/18 07:58 PT 14.0 SECONDS (9.7-12.2) H 07/14/18 16:22 INR 1.3 07/14/18 16:22 APTT 32 SECONDS (21-34) 07/14/18 16:22 - Head Exam Head Exam: ATRAUMATIC, NORMOCEPHALIC - ENT Exam ENT Exam: Mucous Membranes Moist - Neck Exam Neck Exam: Normal Inspection - Respiratory Exam Respiratory Exam: Rales, Rhonchi - Cardiovascular Exam Cardiovascular Exam: REGULAR RHYTHM - GI/Abdominal Exam GI & Abdominal Exam: Soft, Normal Bowel Sounds Assessment and Plan (1) Pulmonary fibrosis Assessment & Plan: Fiberoptic bronchoscopy and biopsy done RULE OUT HYPERSENSITIVITY PNEUMONITIS, SARCOIDOSIS Continue patient on IV steroids Discontinue budesonide Antibiotics Status: Acute (2) Chronic respiratory failure with hypoxia Status: Acute
[2018-07-16] MEDS: MethylPREDNISolone 40 mg Vial IVP SCH ×5 (00:02→22:03)
[2018-07-16] MEDS: Albuterol-Ipratrop 3 mg / 0.5 (3 ml) UD INH SCH ×5 (03:28→21:55)
--- NOTE | 2018-07-16 06:14 | OP ---
PROCEDURE DATE: 07/15/2018 PROCEDURE: Fiberoptic bronchoscopy with transbronchial biopsy. INDICATION: Fiberoptic bronchoscopy procedure was done after obtaining consent from the patient, explaining the patient risks and benefits, which he understood. DESCRIPTION OF PROCEDURE: The procedure was done under sedation by the anesthesiologist. The nose and the throat were prepared with lidocaine. The bronchoscope was passed through the right nostril into the throat. There was normal movement of vocal cords. After instilling lidocaine, the bronchoscope was advanced through trachea. The trachea appeared normal. The main royce was sharp. First, the bronchoscope was passed on the left side, the left main, the left upper, the left lower lobe, all appeared normal. Later, the bronchoscope was pulled back and passed on the right side, the right main, the right upper, the right middle, the right lower lobe, all appeared normal. Under fluoroscopy, multiple biopsies were taken from right lower lobe. The patient tolerated the procedure well. No complications. Nahun Vera MD
--- NOTE | 2018-07-16 07:17 | CP.PCM.PN ---
<Irasema Gibson - Last Filed: 07/16/18 15:25> Subjective - Date & Time of Evaluation Date of Evaluation: 07/16/18 Time of Evaluation: 09:25 - Subjective Subjective: Patient examined at bedside. No acute events overnight. Patient reports he feels better, noting improvement in shortness of breath and cough. Patient still requiring O2 and breathing treatments for relief. Denies chest pain, nausea, diarrhea Objective - Vital Signs/Intake and Output Vital Signs (last 24 hours): Temp Pulse Resp BP Pulse Ox 97.9 F 80 20 137/80 95 07/15/18 23:25 07/16/18 04:00 07/15/18 23:25 07/15/18 23:25 07/15/18 23:25 Intake and Output: 07/16/18 07/16/18 06:59 18:59 Intake Total 400 Balance 400 - Medications Medications: Current Medications Acetaminophen (Tylenol 325mg Tab) 650 mg PO Q6 PRN PRN Reason: Pain, Mild (1-3) Last Admin: 07/09/18 12:03 Dose: 650 mg Albuterol/Ipratropium (Duoneb 3 Mg/0.5 Mg (3 Ml) Ud) 3 ml INH RQ4 [facility] Last Admin: 07/16/18 03:28 Dose: Not Given Budesonide (Pulmicort Respules) 0.5 mg INH RQ12 [facility] Last Admin: 07/15/18 08:44 Dose: 0.5 mg Dextrose (Dextrose 50% Inj) 0 ml IV STAT PRN; Protocol PRN Reason: Hypoglycemia Protocol Dextrose (Glutose 15) 0 gm PO ONCE PRN; Protocol PRN Reason: Hypoglycemia Protocol Glucagon (Glucagen Diagnostic Kit) 0 mg IM STAT PRN; Protocol PRN Reason: Hypoglycemia Protocol Guaifenesin/Dextromethorphan (Robitussin Dm) 5 ml PO Q4H PRN PRN Reason: Cough Last Admin: 07/15/18 10:24 Dose: 5 ml Heparin Sodium (Porcine) (Heparin) 5,000 units SC Q12 [facility] Last Admin: 07/14/18 22:41 Dose: Not Given Azithromycin 500 mg/ Sodium (Chloride) 250 mls @ 250 mls/hr IVPB DAILY [facility]; Protocol Last Admin: 07/15/18 10:25 Dose: 250 mls/hr Ceftriaxone Sodium 1 gm/ (Sodium Chloride) 100 mls @ 100 mls/hr IVPB DAILY [facility]; Protocol Ibuprofen (Motrin Tab) 600 mg PO TID PRN PRN Reason: Pain, moderate (4-7) Last Admin: 07/12/18 17:15 Dose: 600 mg Insulin Human Regular (Novolin R) 0 unit SC ACHS [facility]; Protocol Last Admin: 07/15/18 21:29 Dose: Not Given Methylprednisolone (Solu-Medrol) 60 mg IVP Q6 [facility] Last Admin: 07/16/18 06:08 Dose: 60 mg Multivitamins/Vitamin C (Multi-Delyn Liquid) 5 ml PO DAILY [facility] Last Admin: 07/15/18 10:24 Dose: 5 ml Pantoprazole Sodium (Protonix Inj) 40 mg IVP DAILY [facility] Last Admin: 07/15/18 10:25 Dose: 40 mg Tramadol HCl (Ultram) 25 mg PO TID PRN PRN Reason: Pain, severe (8-10) Last Admin: 07/14/18 08:29 Dose: 25 mg - Labs Labs: 07/15/18 07:58 07/15/18 07:58 PT 14.0 SECONDS (9.7-12.2) H 07/14/18 16:22 INR 1.3 07/14/18 16:22 APTT 32 SECONDS (21-34) 07/14/18 16:22 - Constitutional Appears: Non-toxic, No Acute Distress - Head Exam Head Exam: ATRAUMATIC, NORMAL INSPECTION, NORMOCEPHALIC - Eye Exam Eye Exam: EOMI, Normal appearance - ENT Exam ENT Exam: Mucous Membranes Moist, Normal Exam - Neck Exam Neck Exam: Normal Inspection - Respiratory Exam Respiratory Exam: Accessory Muscle Use, Rales (bilateral rales), NORMAL BREATHING PATTERN - Cardiovascular Exam Cardiovascular Exam: REGULAR RHYTHM, +S1, +S2 - GI/Abdominal Exam GI & Abdominal Exam: Soft, Normal Bowel Sounds. absent: Tenderness - Extremities Exam Extremities Exam: absent: Calf Tenderness, Normal Inspection (stasis dermatitis changes noted on LEs), Pedal Edema - Neurological Exam Neurological Exam: Alert, Awake, Oriented x3 - Psychiatric Exam Psychiatric exam: Normal Affect, Normal Mood - Skin Skin Exam: Dry, Intact, Warm Assessment and Plan - Assessment and Plan (Free Text) Assessment: 63 year old male admitted for evaluation and treatment of SOB 2/2 to pulmonary fibrosis/interstitial lung disease Plan: Interstitial pulmonary fibrosis -s/p bronchoscopy w/ bx and scrapings -f/u path -O2 NC, continuous -albuterol, pulmicort -robitussin -Abx, azithromycin -methylprednisolone 60mg IVP q6 -pain control prn Tylenol, Ibuprofen, tramadol -Pulm consult, Dr. Vera Hypothyroidism -endo consult, Dr. Ang R/O TB -3 negative sputum samples -isolation precaution d/c Prediabetes -ISS -hypoglycemia protocol Electrolyte imbalance -hyperphos/hypermag -monitor and correct accordingly Pancreatic lesion -pancreatic protocol CT: lesion consistent with pancreatic tissue; no further workup -GI consult, Dr. Clifford Ppx -SCD contraindicated due to PVD -protonix 40mg IV qd -heparin 5000U sc q12 [address] Ragsdale -Irasema Gibson, PGY-1 <Aj Ragsdale - Last Filed: 07/16/18 18:01> Objective - Vital Signs/Intake and Output Vital Signs (last 24 hours): Temp Pulse Resp BP Pulse Ox 97.9 F 91 H 20 121/73 98 07/16/18 16:45 07/16/18 16:45 07/16/18 16:45 07/16/18 16:45 07/16/18 16:45 Intake and Output: 07/16/18 07/16/18 06:59 18:59 Intake Total 400 Balance 400 - Medications Medications: Current Medications Acetaminophen (Tylenol 325mg Tab) 650 mg PO Q6 PRN PRN Reason: Pain, Mild (1-3) Last Admin: 07/09/18 12:03 Dose: 650 mg Albuterol/Ipratropium (Duoneb 3 Mg/0.5 Mg (3 Ml) Ud) 3 ml INH RQ4 [facility] Last Admin: 07/16/18 12:20 Dose: 3 ml Budesonide (Pulmicort Respules) 0.5 mg INH RQ12 [facility] Last Admin: 07/16/18 07:54 Dose: 0.5 mg Dextrose (Dextrose 50% Inj) 0 ml IV STAT PRN; Protocol PRN Reason: Hypoglycemia Protocol Dextrose (Glutose 15) 0 gm PO ONCE PRN; Protocol PRN Reason: Hypoglycemia Protocol Glucagon (Glucagen Diagnostic Kit) 0 mg IM STAT PRN; Protocol PRN Reason: Hypoglycemia Protocol Guaifenesin/Dextromethorphan (Robitussin Dm) 5 ml PO Q4H PRN PRN Reason: Cough Last Admin: 07/16/18 10:57 Dose: 5 ml Heparin Sodium (Porcine) (Heparin) 5,000 units SC Q12 [facility] Last Admin: 07/16/18 10:58 Dose: 5,000 units Azithromycin 500 mg/ Sodium (Chloride) 250 mls @ 250 mls/hr IVPB DAILY [facility]; Protocol Last Admin: 07/16/18 12:13 Dose: 250 mls/hr Piperacillin Sod/Tazobactam Sod (Zosyn 3.375 Gm Iv Premix) 3.375 gm in 50 mls @ 100 mls/hr IVPB Q6H [facility]; Protocol Ibuprofen (Motrin Tab) 600 mg PO TID PRN PRN Reason: Pain, moderate (4-7) Last Admin: 07/12/18 17:15 Dose: 600 mg Insulin Human Regular (Novolin R) 0 unit SC ACHS [facility]; Protocol Last Admin: 07/16/18 12:18 Dose: 3 units Methylprednisolone (Solu-Medrol) 60 mg IVP Q6 [facility] Last Admin: 07/16/18 15:50 Dose: 60 mg Multivitamins/Vitamin C (Multi-Delyn Liquid) 5 ml PO DAILY [facility] Last Admin: 07/16/18 10:57 Dose: 5 ml Pantoprazole Sodium (Protonix Inj) 40 mg IVP DAILY [facility] Last Admin: 07/16/18 10:57 Dose: 40 mg Tramadol HCl (Ultram) 25 mg PO TID PRN PRN Reason: Pain, severe (8-10) Last Admin: 07/14/18 08:29 Dose: 25 mg - Labs Labs: 07/16/18 08:21 07/16/18 08:21 PT 14.0 SECONDS (9.7-12.2) H 07/14/18 16:22 INR 1.3 07/14/18 16:22 APTT 32 SECONDS (21-34) 07/14/18 16:22 Attending/Attestation - Attestation I have personally seen and examined this patient.: Yes I have fully participated in the care of the patient.: Yes I have reviewed all pertinent clinical information, including history, physical exam and plan: Yes Notes (Text): Seen and examined this morning during rounds. He had no complain. Later this evening patient was seen for dyspnea. He got dizzy and sob when he was sitting on the chair after using toilet ABG abd chest xray done I will start him on BIPAP .continue zithromax and add zosyn we will repeat abg on BIPAP
[2018-07-16] MEDS: Budesonide 0.5 mg/2 ml Inhal Susp UD INH SCH ×2 (07:54→20:10)
[2018-07-16 08:26] LABS: BASO % 0.2 % (0.0-2.0); EOS % 0.1 % (0.0-4.0); LYMPH # 0.4 K/uL (1.0-4.3); LYMPH % 3.5 % (20.0-40.0); MEAN CELL VOLUME 98.2 fL (80.0-94.0); MEAN CORPUSCULAR HEMOGLOBIN 33.3 pg (27.0-31.0); MEAN CORPUSCULAR HGB CONC 33.9 g/dL (33.0-37.0); MEAN PLATELET VOLUME 8.3 fL (7.2-11.7); MONO # 0.3 K/uL (0.0-0.8); MONO % 3.2 % (0.0-10.0); PLATELET COUNT 269 K/uL (130-400); WHITE BLOOD COUNT 10.8 K/uL (4.8-10.8)
[2018-07-16 08:55] LABS: ALB/GLOB RATIO 0.6 (1.0-2.1); ALBUMIN 2.7 g/dL (3.5-5.0); ALT/SGPT 21 U/L (21-72); AST/SGOT 21 U/L (17-59); BLOOD UREA NITROGEN 25 mg/dL (9-20); CALCIUM 7.8 mg/dl (8.6-10.4); GFR NON-AFRICAN AMERICAN > 60
[2018-07-16 09:00] LABS: LYMPHOCYTE 2 % (20-40); MONOCYTE 1 % (0-10); NEUTROPHIL 97 % (50-75); PLATELET ESTIMATE NORMAL (NORMAL); TOTAL CELLS COUNTED 100
[2018-07-16] MEDS: (Novolin R) Insulin Human Regular 100 units/ml vial SC SCH ×5 (09:19→21:15)
[2018-07-16] MEDS: guaiFENesin DM 100 mg-10 mg/5 ml UD PO PRN (10:57)
[2018-07-16] MEDS: Multiple Vitamins Oral Solution PO SCH (10:57)
[2018-07-16] MEDS: Azithromycin 500 MG in Sodium Chloride 0.9% 250 ML IVPB SCH (12:13)
--- NOTE | 2018-07-16 16:26 | RAD ---
Date of service: 07/16/2018 HISTORY: respiratory distress COMPARISON: 07/15/2018 FINDINGS: LUNGS: The prior bilateral mostly peripheral interstitial abnormally prominent lung markings probable coalescent areas of superimposed airspace opacities each peripheral aspect of each lung are similar appearance. No interval dense consolidation seen. Right inferolateral apparent granuloma. No change PLEURA: No significant pleural effusion identified, no pneumothorax apparent. CARDIOVASCULAR: There is presence of aortic atherosclerotic calcification on x-ray. Mild cardiomegaly suspect. An element of concomitant mild central pulmonary venous congestion and/or interstitial pulmonary edema not excluded. Overall bronchovascular markings and interstitial lung markings do not appear significantly changed. OSSEOUS STRUCTURES: Mild diffuse thoracic spondylosis. Apparent benign-appearing left glenoid rim bone island. VISUALIZED UPPER ABDOMEN: Normal. OTHER FINDINGS: None. IMPRESSION: Extensive bilateral peripheral and fairly symmetrical interstitial lung disease confluent interstitial/overlapping airspace coalescent opacities suggested. Interval change in lung parenchymal pattern appreciated. Clinical correlation recommended in terms of which known interstitial lung disease this patient has is recommended.
[2018-07-16 16:41] LABS: ABG ALLEN TEST YES; ARTERIAL BLOOD GAS HCO3 32.3 mmol/L (21-28); ARTERIAL BLOOD GAS PCO2 59 mm/Hg (35-45); ARTERIAL BLOOD GAS PO2 74 mm/Hg (80-100); ARTERIAL BLOOD GAS TCO2 38.3 mmol/L (22-28)
--- NOTE | 2018-07-16 18:17 | CP.PCM.PN ---
Subjective - Date & Time of Evaluation Date of Evaluation: 07/16/18 Time of Evaluation: 10:00 - Subjective Subjective: patient seen and examined Complaining of cough and dyspnea on exertion Status post lung biopsy Off respiratory isolation Continue antibiotics Continue steroids Followup pathology report Objective - Vital Signs/Intake and Output Vital Signs (last 24 hours): Temp Pulse Resp BP Pulse Ox 97.9 F 91 H 20 121/73 98 07/16/18 16:45 07/16/18 16:45 07/16/18 16:45 07/16/18 16:45 07/16/18 16:45 Intake and Output: 07/16/18 07/16/18 06:59 18:59 Intake Total 400 Balance 400 - Medications Medications: Current Medications Acetaminophen (Tylenol 325mg Tab) 650 mg PO Q6 PRN PRN Reason: Pain, Mild (1-3) Last Admin: 07/09/18 12:03 Dose: 650 mg Albuterol/Ipratropium (Duoneb 3 Mg/0.5 Mg (3 Ml) Ud) 3 ml INH RQ4 [facility] Last Admin: 07/16/18 12:20 Dose: 3 ml Budesonide (Pulmicort Respules) 0.5 mg INH RQ12 [facility] Last Admin: 07/16/18 07:54 Dose: 0.5 mg Dextrose (Dextrose 50% Inj) 0 ml IV STAT PRN; Protocol PRN Reason: Hypoglycemia Protocol Dextrose (Glutose 15) 0 gm PO ONCE PRN; Protocol PRN Reason: Hypoglycemia Protocol Glucagon (Glucagen Diagnostic Kit) 0 mg IM STAT PRN; Protocol PRN Reason: Hypoglycemia Protocol Guaifenesin/Dextromethorphan (Robitussin Dm) 5 ml PO Q4H PRN PRN Reason: Cough Last Admin: 07/16/18 10:57 Dose: 5 ml Heparin Sodium (Porcine) (Heparin) 5,000 units SC Q12 [facility] Last Admin: 07/16/18 10:58 Dose: 5,000 units Azithromycin 500 mg/ Sodium (Chloride) 250 mls @ 250 mls/hr IVPB DAILY [facility]; Protocol Last Admin: 07/16/18 12:13 Dose: 250 mls/hr Piperacillin Sod/Tazobactam Sod (Zosyn 3.375 Gm Iv Premix) 3.375 gm in 50 mls @ 100 mls/hr IVPB Q6H [facility]; Protocol Ibuprofen (Motrin Tab) 600 mg PO TID PRN PRN Reason: Pain, moderate (4-7) Last Admin: 07/12/18 17:15 Dose: 600 mg Insulin Human Regular (Novolin R) 0 unit SC ACHS [facility]; Protocol Last Admin: 07/16/18 18:02 Dose: 2 units Methylprednisolone (Solu-Medrol) 60 mg IVP Q6 [facility] Last Admin: 07/16/18 15:50 Dose: 60 mg Multivitamins/Vitamin C (Multi-Delyn Liquid) 5 ml PO DAILY [facility] Last Admin: 07/16/18 10:57 Dose: 5 ml Pantoprazole Sodium (Protonix Inj) 40 mg IVP DAILY [facility] Last Admin: 07/16/18 10:57 Dose: 40 mg Tramadol HCl (Ultram) 25 mg PO TID PRN PRN Reason: Pain, severe (8-10) Last Admin: 07/14/18 08:29 Dose: 25 mg - Labs Labs: 07/16/18 08:21 07/16/18 08:21 PT 14.0 SECONDS (9.7-12.2) H 07/14/18 16:22 INR 1.3 07/14/18 16:22 APTT 32 SECONDS (21-34) 07/14/18 16:22 Assessment and Plan (1) Pulmonary fibrosis Status: Acute (2) Chronic respiratory failure with hypoxia Status: Acute
[2018-07-16] MEDS: Piperacill/Tazo 3.375gm in Dex 3.375 GM/50 ML BAG IVPB SCH (18:45)
[2018-07-16 21:46] LABS: ABG ALLEN TEST YES; ARTERIAL BLOOD GAS HCO3 32.4 mmol/L (21-28); ARTERIAL BLOOD GAS O2 SAT 98.6 % (95-98); ARTERIAL BLOOD GAS PCO2 59 mm/Hg (35-45); ARTERIAL BLOOD GAS PO2 173 mm/Hg (80-100); ARTERIAL BLOOD GAS TCO2 38.3 mmol/L (22-28)
[2018-07-17] MEDS: MethylPREDNISolone 40 mg Vial IVP SCH ×4 (00:19→17:49)
[2018-07-17] MEDS: Piperacill/Tazo 3.375gm in Dex 3.375 GM/50 ML BAG IVPB SCH ×5 (00:23→23:50)
[2018-07-17] MEDS: Albuterol-Ipratrop 3 mg / 0.5 (3 ml) UD INH SCH ×6 (00:29→19:25)
[2018-07-17 07:27] LABS: BASO % 0.2 % (0.0-2.0); HEMOGLOBIN 13.9 g/dL (12.0-18.0); LYMPH # 0.5 K/uL (1.0-4.3); LYMPH % 3.5 % (20.0-40.0); MEAN CELL VOLUME 99.6 fL (80.0-94.0); MEAN CORPUSCULAR HEMOGLOBIN 32.6 pg (27.0-31.0); MEAN CORPUSCULAR HGB CONC 32.7 g/dL (33.0-37.0); MEAN PLATELET VOLUME 8.9 fL (7.2-11.7); MONO # 0.4 K/uL (0.0-0.8); MONO % 3.1 % (0.0-10.0); NEUT # 12.8 K/uL (1.8-7.0); NEUT % 93.2 % (50.0-75.0); PLATELET COUNT 281 K/uL (130-400); RBC 4.27 Mil/uL (4.40-5.90); WHITE BLOOD COUNT 13.8 K/uL (4.8-10.8)
[2018-07-17] MEDS: Budesonide 0.5 mg/2 ml Inhal Susp UD INH SCH ×2 (07:45→19:25)
[2018-07-17 08:11] LABS: ALB/GLOB RATIO 0.7 (1.0-2.1); ALBUMIN 2.7 g/dL (3.5-5.0); ALT/SGPT 26 U/L (21-72); AST/SGOT 28 U/L (17-59); BLOOD UREA NITROGEN 29 mg/dL (9-20); CALCIUM 7.6 mg/dl (8.6-10.4); GFR NON-AFRICAN AMERICAN > 60
[2018-07-17] MEDS: (Novolin R) Insulin Human Regular 100 units/ml vial SC SCH ×4 (08:43→21:28)
[2018-07-17 08:52] LABS: LYMPHOCYTE 2 % (20-40); MONOCYTE 2 % (0-10); NEUTROPHIL 96 % (50-75); PLATELET ESTIMATE NORMAL (NORMAL); TOTAL CELLS COUNTED 100
[2018-07-17] MEDS: Multiple Vitamins Oral Solution PO SCH (09:38)
[2018-07-17] MEDS: Azithromycin 500 MG in Sodium Chloride 0.9% 250 ML IVPB SCH (10:02)
--- NOTE | 2018-07-17 13:31 | CP.PCM.PN ---
<Irasema Gibson - Last Filed: 07/17/18 13:57> Subjective - Date & Time of Evaluation Date of Evaluation: 07/17/18 Time of Evaluation: 07:25 - Subjective Subjective: Patient examined at bedside. Patient currently complaining of SOB just after walking to bathroom and back on NC. Pt placed on BiPAP overnight, however had difficulty due to force of air. Decision was made to switch pt back to non- rebreather with significant relief. Denies chest pain, nausea, diarrhea Objective - Vital Signs/Intake and Output Vital Signs (last 24 hours): Temp Pulse Resp BP Pulse Ox 98.4 F 82 20 140/83 95 07/17/18 07:10 07/17/18 07:57 07/17/18 07:10 07/17/18 07:10 07/17/18 07:10 Intake and Output: 07/17/18 07/17/18 06:59 18:59 Intake Total 220 Output Total 250 Balance -30 - Medications Medications: Current Medications Acetaminophen (Tylenol 325mg Tab) 650 mg PO Q6 PRN PRN Reason: Pain, Mild (1-3) Last Admin: 07/09/18 12:03 Dose: 650 mg Albuterol/Ipratropium (Duoneb 3 Mg/0.5 Mg (3 Ml) Ud) 3 ml INH RQ4 [facility] Last Admin: 07/17/18 07:40 Dose: 3 ml Budesonide (Pulmicort Respules) 0.5 mg INH RQ12 [facility] Last Admin: 07/17/18 07:45 Dose: 0.5 mg Dextrose (Dextrose 50% Inj) 0 ml IV STAT PRN; Protocol PRN Reason: Hypoglycemia Protocol Dextrose (Glutose 15) 0 gm PO ONCE PRN; Protocol PRN Reason: Hypoglycemia Protocol Glucagon (Glucagen Diagnostic Kit) 0 mg IM STAT PRN; Protocol PRN Reason: Hypoglycemia Protocol Guaifenesin/Dextromethorphan (Robitussin Dm) 5 ml PO Q4H PRN PRN Reason: Cough Last Admin: 07/16/18 10:57 Dose: 5 ml Heparin Sodium (Porcine) (Heparin) 5,000 units SC Q12 [facility] Last Admin: 07/17/18 09:38 Dose: 5,000 units Piperacillin Sod/Tazobactam Sod (Zosyn 3.375 Gm Iv Premix) 3.375 gm in 50 mls @ 100 mls/hr IVPB Q6H [facility]; Protocol Last Admin: 07/17/18 11:43 Dose: 100 mls/hr Azithromycin 500 mg/ Sodium (Chloride) 250 mls @ 250 mls/hr IVPB DAILY [facility]; Protocol Last Admin: 07/17/18 10:02 Dose: 250 mls/hr Ibuprofen (Motrin Tab) 600 mg PO TID PRN PRN Reason: Pain, moderate (4-7) Last Admin: 07/12/18 17:15 Dose: 600 mg Insulin Human Regular (Novolin R) 0 unit SC ACHS [facility]; Protocol Last Admin: 07/17/18 08:43 Dose: 2 units Methylprednisolone (Solu-Medrol) 60 mg IVP Q6 [facility] Last Admin: 07/17/18 05:59 Dose: 60 mg Multivitamins (Hexavitamin) 1 tab PO DAILY [facility] Pantoprazole Sodium (Protonix Inj) 40 mg IVP DAILY [facility] Last Admin: 07/17/18 09:37 Dose: 40 mg Tramadol HCl (Ultram) 25 mg PO TID PRN PRN Reason: Pain, severe (8-10) Last Admin: 07/14/18 08:29 Dose: 25 mg - Labs Labs: 07/17/18 07:13 07/17/18 07:13 PT 14.0 SECONDS (9.7-12.2) H 07/14/18 16:22 INR 1.3 07/14/18 16:22 APTT 32 SECONDS (21-34) 07/14/18 16:22 - Constitutional Appears: Non-toxic, No Acute Distress - Head Exam Head Exam: ATRAUMATIC, NORMAL INSPECTION, NORMOCEPHALIC - Eye Exam Eye Exam: EOMI, Normal appearance - ENT Exam ENT Exam: Mucous Membranes Moist, Normal Exam - Neck Exam Neck Exam: Normal Inspection - Respiratory Exam Respiratory Exam: Accessory Muscle Use, Rales (diffuse bilateral), NORMAL BREATHING PATTERN - Cardiovascular Exam Cardiovascular Exam: Tachycardia, REGULAR RHYTHM, +S1, +S2 - GI/Abdominal Exam GI & Abdominal Exam: Soft, Normal Bowel Sounds. absent: Tenderness - Extremities Exam Extremities Exam: Normal Capillary Refill. absent: Calf Tenderness, Normal Inspection (LE skin changes), Pedal Edema - Neurological Exam Neurological Exam: Alert, Awake, Normal Gait, Oriented x3 - Psychiatric Exam Psychiatric exam: Normal Affect, Normal Mood - Skin Skin Exam: Dry, Intact, Warm Assessment and Plan - Assessment and Plan (Free Text) Assessment: 3 year old male admitted for evaluation and treatment of SOB 2/2 to pulmonary fibrosis/interstitial lung disease Plan: This morning during exam patient, was found to have SCDs on and oxygenating via NC. Pt was short of breath. Conversation with overnight nurse included a reminder that pt has a contraindication to SCDs due to history of PVD. It was also discussed that pt had BiPAP ordered continuously, although pt was switched to NC without orders. Interstitial pulmonary fibrosis -s/p bronchoscopy w/ bx and scrapings -f/u path -BiPAP -albuterol, pulmicort -robitussin -Abx, azithromycin -methylprednisolone 60mg IVP q6 -pain control prn Tylenol, Ibuprofen, tramadol -Pulm consult, Dr. Vera Hypothyroidism -endo consult, Dr. Ang R/O TB -3 negative sputum samples -isolation precaution d/c Prediabetes -ISS -hypoglycemia protocol Electrolyte imbalance -hyperphos/hypermag -monitor and correct accordingly Pancreatic lesion -pancreatic protocol CT: lesion consistent with pancreatic tissue; no further workup -GI consult, Dr. Clifford Ppx -SCD contraindicated due to PVD -protonix 40mg IV qd -heparin 5000U sc q[address] Ragsdale -Irasema Gibson, PGY-1 <Aj Ragsdale - Last Filed: 07/17/18 14:31> Objective - Vital Signs/Intake and Output Vital Signs (last 24 hours): Temp Pulse Resp BP Pulse Ox 98.4 F 82 20 140/83 95 07/17/18 07:10 07/17/18 07:57 07/17/18 07:10 07/17/18 07:10 07/17/18 07:10 Intake and Output: 07/17/18 07/17/18 06:59 18:59 Intake Total 220 1150 Output Total 250 Balance -30 1150 - Medications Medications: Current Medications Acetaminophen (Tylenol 325mg Tab) 650 mg PO Q6 PRN PRN Reason: Pain, Mild (1-3) Last Admin: 07/09/18 12:03 Dose: 650 mg Albuterol/Ipratropium (Duoneb 3 Mg/0.5 Mg (3 Ml) Ud) 3 ml INH RQ4 [facility] Last Admin: 07/17/18 07:40 Dose: 3 ml Budesonide (Pulmicort Respules) 0.5 mg INH RQ12 [facility] Last Admin: 07/17/18 07:45 Dose: 0.5 mg Dextrose (Dextrose 50% Inj) 0 ml IV STAT PRN; Protocol PRN Reason: Hypoglycemia Protocol Dextrose (Glutose 15) 0 gm PO ONCE PRN; Protocol PRN Reason: Hypoglycemia Protocol Glucagon (Glucagen Diagnostic Kit) 0 mg IM STAT PRN; Protocol PRN Reason: Hypoglycemia Protocol Guaifenesin/Dextromethorphan (Robitussin Dm) 5 ml PO Q4H PRN PRN Reason: Cough Last Admin: 07/16/18 10:57 Dose: 5 ml Heparin Sodium (Porcine) (Heparin) 5,000 units SC Q12 [facility] Last Admin: 07/17/18 09:38 Dose: 5,000 units Piperacillin Sod/Tazobactam Sod (Zosyn 3.375 Gm Iv Premix) 3.375 gm in 50 mls @ 100 mls/hr IVPB Q6H [facility]; Protocol Last Admin: 07/17/18 11:43 Dose: 100 mls/hr Azithromycin 500 mg/ Sodium (Chloride) 250 mls @ 250 mls/hr IVPB DAILY [facility]; Protocol Last Admin: 07/17/18 10:02 Dose: 250 mls/hr Ibuprofen (Motrin Tab) 600 mg PO TID PRN PRN Reason: Pain, moderate (4-7) Last Admin: 07/12/18 17:15 Dose: 600 mg Insulin Human Regular (Novolin R) 0 unit SC ACHS [facility]; Protocol Last Admin: 07/17/18 12:20 Dose: 4 units Methylprednisolone (Solu-Medrol) 60 mg IVP Q6 [facility] Last Admin: 07/17/18 13:34 Dose: 60 mg Multivitamins (Hexavitamin) 1 tab PO DAILY [facility] Pantoprazole Sodium (Protonix Inj) 40 mg IVP DAILY [facility] Last Admin: 07/17/18 09:37 Dose: 40 mg Tramadol HCl (Ultram) 25 mg PO TID PRN PRN Reason: Pain, severe (8-10) Last Admin: 07/14/18 08:29 Dose: 25 mg - Labs Labs: 07/17/18 07:13 07/17/18 07:13 PT 14.0 SECONDS (9.7-12.2) H 07/14/18 16:22 INR 1.3 07/14/18 16:22 APTT 32 SECONDS (21-34) 07/14/18 16:22 Attending/Attestation - Attestation I have personally seen and examined this patient.: Yes I have fully participated in the care of the patient.: Yes I have reviewed all pertinent clinical information, including history, physical exam and plan: Yes Notes (Text): Seen and examined He is feeling better.He is not comfortable with BIPAP. On 100% oxygen. we will try 4liter NC and see how he is doing BIPAP as needed continue zosyn and zithromax continue solumedrol,duoneb and pulmicort d/w resident
[2018-07-18] MEDS: MethylPREDNISolone 40 mg Vial IVP SCH ×5 (00:55→23:57)
[2018-07-18] MEDS: Albuterol-Ipratrop 3 mg / 0.5 (3 ml) UD INH SCH ×6 (01:00→20:15)
[2018-07-18] MEDS: guaiFENesin DM 100 mg-10 mg/5 ml UD PO PRN (02:19)
[2018-07-18] MEDS: Piperacill/Tazo 3.375gm in Dex 3.375 GM/50 ML BAG IVPB SCH ×4 (05:53→23:01)
[2018-07-18 07:26] LABS: BASO % 0.2 % (0.0-2.0); EOS % 0.1 % (0.0-4.0); HEMOGLOBIN 13.5 g/dL (12.0-18.0); LYMPH # 0.4 K/uL (1.0-4.3); LYMPH % 2.2 % (20.0-40.0); MEAN CELL VOLUME 99.7 fL (80.0-94.0); MEAN CORPUSCULAR HEMOGLOBIN 32.5 pg (27.0-31.0); MEAN CORPUSCULAR HGB CONC 32.6 g/dL (33.0-37.0); MONO # 0.5 K/uL (0.0-0.8); MONO % 3.3 % (0.0-10.0); NEUT # 15.4 K/uL (1.8-7.0); NEUT % 94.2 % (50.0-75.0); PLATELET COUNT 251 K/uL (130-400); RBC 4.16 Mil/uL (4.40-5.90); RED CELL DISTRIBUTION WIDTH 15.5 % (11.5-14.5); WHITE BLOOD COUNT 16.4 K/uL (4.8-10.8)
[2018-07-18 08:00] LABS: ALB/GLOB RATIO 0.7 (1.0-2.1); ALBUMIN 2.7 g/dL (3.5-5.0); ALT/SGPT 23 U/L (21-72); AST/SGOT 21 U/L (17-59); BLOOD UREA NITROGEN 27 mg/dL (9-20); CALCIUM 7.6 mg/dl (8.6-10.4); GFR NON-AFRICAN AMERICAN > 60
[2018-07-18] MEDS: Budesonide 0.5 mg/2 ml Inhal Susp UD INH SCH ×2 (08:13→20:16)
--- NOTE | 2018-07-18 08:14 | CP.PCM.PN ---
<Efrain Ybarra M - Last Filed: 07/18/18 19:52> Subjective - Date & Time of Evaluation Date of Evaluation: 07/18/18 Time of Evaluation: 08:00 - Subjective Subjective: PGY 1 Medicine Progress Note for Hospitalist Dr. Ragsdale. Patient seen and examined at bedside. No overnight events reported. Patient lying in bed comfortably. Pt states he feels much better this morning and was able to ambulate without SOB. Patient states he used the bipap overnight and it helped greatly. Patient denies chest pain, n/v, f/c, dysuria, hematuria. Patient is s/p bronchoscopy. Objective - Vital Signs/Intake and Output Vital Signs (last 24 hours): Temp Pulse Resp BP Pulse Ox 97.7 F 71 20 125/76 98 07/18/18 07:43 07/18/18 07:43 07/18/18 07:43 07/18/18 07:43 07/18/18 07:43 - Medications Medications: Current Medications Acetaminophen (Tylenol 325mg Tab) 650 mg PO Q6 PRN PRN Reason: Pain, Mild (1-3) Last Admin: 07/09/18 12:03 Dose: 650 mg Albuterol/Ipratropium (Duoneb 3 Mg/0.5 Mg (3 Ml) Ud) 3 ml INH RQ4 [facility] Last Admin: 07/18/18 08:13 Dose: 3 ml Budesonide (Pulmicort Respules) 0.5 mg INH RQ12 [facility] Last Admin: 07/18/18 08:13 Dose: 0.5 mg Dextrose (Dextrose 50% Inj) 0 ml IV STAT PRN; Protocol PRN Reason: Hypoglycemia Protocol Dextrose (Glutose 15) 0 gm PO ONCE PRN; Protocol PRN Reason: Hypoglycemia Protocol Glucagon (Glucagen Diagnostic Kit) 0 mg IM STAT PRN; Protocol PRN Reason: Hypoglycemia Protocol Guaifenesin/Dextromethorphan (Robitussin Dm) 5 ml PO Q4H PRN PRN Reason: Cough Last Admin: 07/18/18 02:19 Dose: 5 ml Heparin Sodium (Porcine) (Heparin) 5,000 units SC Q12 [facility] Last Admin: 07/17/18 21:29 Dose: 5,000 units Piperacillin Sod/Tazobactam Sod (Zosyn 3.375 Gm Iv Premix) 3.375 gm in 50 mls @ 100 mls/hr IVPB Q6H [facility]; Protocol Last Admin: 07/18/18 05:53 Dose: 100 mls/hr Azithromycin 500 mg/ Sodium (Chloride) 250 mls @ 250 mls/hr IVPB DAILY [facility]; Protocol Last Admin: 07/17/18 10:02 Dose: 250 mls/hr Ibuprofen (Motrin Tab) 600 mg PO TID PRN PRN Reason: Pain, moderate (4-7) Last Admin: 07/12/18 17:15 Dose: 600 mg Insulin Human Regular (Novolin R) 0 unit SC ACHS [facility]; Protocol Last Admin: 07/17/18 21:28 Dose: Not Given Methylprednisolone (Solu-Medrol) 60 mg IVP Q6 [facility] Last Admin: 07/18/18 05:55 Dose: 60 mg Multivitamins (Hexavitamin) 1 tab PO DAILY [facility] Pantoprazole Sodium (Protonix Inj) 40 mg IVP DAILY [facility] Last Admin: 07/17/18 09:37 Dose: 40 mg Tramadol HCl (Ultram) 25 mg PO TID PRN PRN Reason: Pain, severe (8-10) Last Admin: 07/14/18 08:29 Dose: 25 mg - Labs Labs: 07/18/18 07:20 07/18/18 07:20 PT 14.0 SECONDS (9.7-12.2) H 07/14/18 16:22 INR 1.3 07/14/18 16:22 APTT 32 SECONDS (21-34) 07/14/18 16:22 - Constitutional Appears: Non-toxic, No Acute Distress - Head Exam Head Exam: NORMAL INSPECTION - Eye Exam Eye Exam: Normal appearance - ENT Exam ENT Exam: Mucous Membranes Moist - Respiratory Exam Respiratory Exam: Rales. absent: Clear to Ausculation Bilateral, NORMAL BREATHING PATTERN Additional comments: Diffuse rales, greater in lower lung daniel - Cardiovascular Exam Cardiovascular Exam: +S1, +S2. absent: Murmur - GI/Abdominal Exam GI & Abdominal Exam: Soft, Normal Bowel Sounds. absent: Guarding, Rigid, Tenderness - Extremities Exam Extremities Exam: Full ROM, Normal Inspection. 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 Pt was short of breath. Conversation with overnight nurse included a reminder that pt has a contraindication to SCDs due to history of PVD. It was also discussed that pt had BiPAP ordered continuously, although pt was switched to NC without orders. Interstitial pulmonary fibrosis -s/p bronchoscopy w/ bx and scrapings -f/u path - bronch culture - yeast - f/u ID, Dr. Riya chiang - fluconazole 400 stat - fluconazole 200 daily -BiPAP -albuterol, pulmicort -robitussin -Abx, azithromycin -methylprednisolone 60mg IVP q6 -pain control prn Tylenol, Ibuprofen, tramadol -Pulm consult, Dr. Vera Leukocytosis - WBCs in 13s to 16s - likely 2/2 to steroid use Hypothyroidism -endo consult, Dr. Ang R/O Tuberculosis -3 negative sputum samples -isolation precaution d/c Prediabetes -ISS aqhs -hypoglycemia protocol Electrolyte imbalance -hyperphos/hypermag -monitor and correct accordingly Pancreatic lesion -pancreatic protocol CT: lesion consistent with pancreatic tissue; no further workup -GI consult, Dr. Clifford Ppx -SCD contraindicated due to PVD -protonix 40mg IV qd -heparin 5000U sc q12 <Aj Ragsdale - Last Filed: 07/22/18 17:54> Objective - Vital Signs/Intake and Output Vital Signs (last 24 hours): Temp Pulse Resp BP Pulse Ox 97 F L 102 H 20 143/86 97 07/22/18 15:00 07/22/18 15:00 07/22/18 15:00 07/22/18 15:00 07/22/18 15:00 Intake and Output: 07/22/18 07/22/18 06:59 18:59 Output Total 300 Balance -300 - Medications Medications: Current Medications Acetaminophen (Tylenol 325mg Tab) 650 mg PO Q6 PRN PRN Reason: Pain, Mild (1-3) Last Admin: 07/09/18 12:03 Dose: 650 mg Albuterol/Ipratropium (Duoneb 3 Mg/0.5 Mg (3 Ml) Ud) 3 ml INH RQ4 [facility] Last Admin: 07/22/18 11:45 Dose: 3 ml Budesonide (Pulmicort Respules) 0.5 mg INH RQ12 [facility] Last Admin: 07/22/18 07:45 Dose: 0.5 mg Dextrose (Dextrose 50% Inj) 0 ml IV STAT PRN; Protocol PRN Reason: Hypoglycemia Protocol Dextrose (Glutose 15) 0 gm PO ONCE PRN; Protocol PRN Reason: Hypoglycemia Protocol Glucagon (Glucagen Diagnostic Kit) 0 mg IM STAT PRN; Protocol PRN Reason: Hypoglycemia Protocol Guaifenesin/Dextromethorphan (Robitussin Dm) 5 ml PO Q4H PRN PRN Reason: Cough Last Admin: 07/18/18 02:19 Dose: 5 ml Heparin Sodium (Porcine) (Heparin) 5,000 units SC Q12 [facility] Last Admin: 07/22/18 09:28 Dose: 5,000 units Azithromycin 500 mg/ Sodium (Chloride) 250 mls @ 250 mls/hr IVPB DAILY [facility]; Protocol Last Admin: 07/22/18 09:28 Dose: 250 mls/hr Meropenem 1 gm/ Sodium (Chloride) 100 mls @ 100 mls/hr IVPB Q8H [facility]; Protocol Last Admin: 07/22/18 12:06 Dose: 100 mls/hr Micafungin Sodium 100 mg/ (Sodium Chloride) 100 mls @ 100 mls/hr IV Q24H [facility]; Protocol Last Admin: 07/22/18 13:43 Dose: 100 mls/hr Vancomycin HCl 1 gm/ Sodium (Chloride) 250 mls @ 166.7 mls/hr IVPB Q24H [facility]; Protocol Last Admin: 07/22/18 15:00 Dose: 166.7 mls/hr Ibuprofen (Motrin Tab) 600 mg PO TID PRN PRN Reason: Pain, moderate (4-7) Last Admin: 07/12/18 17:15 Dose: 600 mg Insulin Human Regular (Novolin R) 0 unit SC ACHS [facility]; Protocol Last Admin: 07/22/18 17:44 Dose: 2 units Methylprednisolone (Solu-Medrol) 40 mg IVP Q6 [facility] Last Admin: 07/22/18 17:44 Dose: 40 mg Multivitamins (Hexavitamin) 1 tab PO DAILY [facility] Last Admin: 07/22/18 09:28 Dose: 1 tab Pantoprazole Sodium (Protonix Ec Tab) 40 mg PO DAILY [facility] Last Admin: 07/22/18 09:28 Dose: 40 mg Tramadol HCl (Ultram) 25 mg PO TID PRN PRN Reason: Pain, severe (8-10) Last Admin: 07/14/18 08:29 Dose: 25 mg - Labs Labs: 07/22/18 06:25 07/22/18 06:25 PT 14.0 SECONDS (9.7-12.2) H 07/14/18 16:22 INR 1.3 07/14/18 16:22 APTT 32 SECONDS (21-34) 07/14/18 16:22 Attending/Attestation - Attestation I have personally seen and examined this patient.: Yes I have fully participated in the care of the patient.: Yes I have reviewed all pertinent clinical information, including history, physical exam and plan: Yes
[2018-07-18] MEDS: (Novolin R) Insulin Human Regular 100 units/ml vial SC SCH ×4 (08:37→21:27)
[2018-07-18 09:11] LABS: ANISOCYTOSIS SLIGHT; BANDS 1 % (0-2); LYMPHOCYTE 3 % (20-40); MONOCYTE 4 % (0-10); NEUTROPHIL 92 % (50-75); PLATELET ESTIMATE NORMAL (NORMAL); TOTAL CELLS COUNTED 100
[2018-07-18 09:13] LABS: HYPOCHROMIC SLIGHT; LARGE PLATELETS PRESENT; POLYCHROMIC SLIGHT; TOXIC GRANULATION PRESENT
[2018-07-18] MEDS: Multiple Vitamins Tab PO SCH (09:58)
[2018-07-18] MEDS: Azithromycin 500 MG in Sodium Chloride 0.9% 250 ML IVPB SCH (10:00)
[2018-07-19] MEDS: Albuterol-Ipratrop 3 mg / 0.5 (3 ml) UD INH SCH ×6 (00:53→19:52)
[2018-07-19] MEDS: Piperacill/Tazo 3.375gm in Dex 3.375 GM/50 ML BAG IVPB SCH ×4 (05:37→22:34)
[2018-07-19] MEDS: MethylPREDNISolone 40 mg Vial IVP SCH ×4 (05:37→23:50)
[2018-07-19] MEDS: Budesonide 0.5 mg/2 ml Inhal Susp UD INH SCH ×2 (07:20→19:52)
--- NOTE | 2018-07-19 07:28 | CP.PCM.PN ---
<Efrain Ybarra - Last Filed: 07/19/18 21:35> Subjective - Date & Time of Evaluation Date of Evaluation: 07/19/18 Time of Evaluation: 10:00 - Subjective Subjective: PGY1 medicine progress Note for Dr. Ragsdale, Patient seen and examiend at bedside. No acute events overnight. Patient states he still has SOB when walking to bathroom, but otherwise feels fine. Denies chest pain, SOB, N/V, F/C, dysuria, hematuria. Pt uses bipap at night. Objective - Vital Signs/Intake and Output Vital Signs (last 24 hours): Temp Pulse Resp BP Pulse Ox 98.0 F 100 H 20 135/74 97 07/18/18 23:05 07/19/18 00:53 07/18/18 23:05 07/18/18 23:05 07/18/18 23:05 - Medications Medications: Current Medications Acetaminophen (Tylenol 325mg Tab) 650 mg PO Q6 PRN PRN Reason: Pain, Mild (1-3) Last Admin: 07/09/18 12:03 Dose: 650 mg Albuterol/Ipratropium (Duoneb 3 Mg/0.5 Mg (3 Ml) Ud) 3 ml INH RQ4 [facility] Last Admin: 07/19/18 03:49 Dose: Not Given Budesonide (Pulmicort Respules) 0.5 mg INH RQ12 [facility] Last Admin: 07/18/18 20:16 Dose: 0.5 mg Dextrose (Dextrose 50% Inj) 0 ml IV STAT PRN; Protocol PRN Reason: Hypoglycemia Protocol Dextrose (Glutose 15) 0 gm PO ONCE PRN; Protocol PRN Reason: Hypoglycemia Protocol Fluconazole (Diflucan) 200 mg PO DAILY [facility]; Protocol Glucagon (Glucagen Diagnostic Kit) 0 mg IM STAT PRN; Protocol PRN Reason: Hypoglycemia Protocol Guaifenesin/Dextromethorphan (Robitussin Dm) 5 ml PO Q4H PRN PRN Reason: Cough Last Admin: 07/18/18 02:19 Dose: 5 ml Heparin Sodium (Porcine) (Heparin) 5,000 units SC Q12 [facility] Last Admin: 07/18/18 21:41 Dose: 5,000 units Piperacillin Sod/Tazobactam Sod (Zosyn 3.375 Gm Iv Premix) 3.375 gm in 50 mls @ 100 mls/hr IVPB Q6H [facility]; Protocol Last Admin: 07/19/18 05:37 Dose: 100 mls/hr Azithromycin 500 mg/ Sodium (Chloride) 250 mls @ 250 mls/hr IVPB DAILY [facility]; Protocol Last Admin: 07/18/18 10:00 Dose: 250 mls/hr Ibuprofen (Motrin Tab) 600 mg PO TID PRN PRN Reason: Pain, moderate (4-7) Last Admin: 07/12/18 17:15 Dose: 600 mg Insulin Human Regular (Novolin R) 0 unit SC ACHS [facility]; Protocol Last Admin: 07/18/18 21:27 Dose: Not Given Methylprednisolone (Solu-Medrol) 60 mg IVP Q6 [facility] Last Admin: 07/19/18 05:37 Dose: 60 mg Multivitamins (Hexavitamin) 1 tab PO DAILY [facility] Last Admin: 07/18/18 09:58 Dose: 1 tab Pantoprazole Sodium (Protonix Inj) 40 mg IVP DAILY [facility] Last Admin: 07/18/18 09:58 Dose: 40 mg Tramadol HCl (Ultram) 25 mg PO TID PRN PRN Reason: Pain, severe (8-10) Last Admin: 07/14/18 08:29 Dose: 25 mg - Labs Labs: 07/18/18 07:20 07/18/18 07:20 PT 14.0 SECONDS (9.7-12.2) H 07/14/18 16:22 INR 1.3 07/14/18 16:22 APTT 32 SECONDS (21-34) 07/14/18 16:22 - Constitutional Appears: Non-toxic, No Acute Distress - Head Exam Head Exam: NORMAL INSPECTION - Eye Exam Eye Exam: Normal appearance - ENT Exam ENT Exam: Mucous Membranes Moist - Respiratory Exam Respiratory Exam: Rales, NORMAL BREATHING PATTERN Additional comments: B/L rale through all daniel, Lower > upper - Cardiovascular Exam Cardiovascular Exam: +S1, +S2 - GI/Abdominal Exam GI & Abdominal Exam: Soft, Normal Bowel Sounds - Extremities Exam Extremities Exam: Full ROM, Normal Inspection. absent: Calf Tenderness, Pedal Edema - Back Exam Back Exam: absent: CVA tenderness (L), CVA tenderness (R) - Neurological Exam Neurological Exam: Alert, Awake, Oriented x3 - Psychiatric Exam Psychiatric exam: Normal Affect, Normal Mood - Skin Skin Exam: Dry, Intact, Normal Color, Warm Assessment and Plan - Assessment and Plan (Free Text) Assessment: 63 year old male admitted for evaluation and treatment of SOB 2/2 to pulmonary fibrosis/interstitial lung disease Plan: This morning during exam patient, was found to have SCDs on and oxygenating via NC. Pt was short of breath. Conversation with overnight nurse included a reminder that pt has a contraindication to SCDs due to history of PVD. It was also discussed that pt had BiPAP ordered continuously, although pt was switched to NC without orders. Interstitial pulmonary fibrosis -s/p bronchoscopy w/ bx and scrapings -f/u path - bronch culture - yeast - f/u ID, Dr. Ritter recs - fluconazole 400 stat - fluconazole 200 daily -BiPAP -albuterol, pulmicort -robitussin -Abx, azithromycin, started Zosyn -methylprednisolone 60mg IVP q6 -pain control prn Tylenol, Ibuprofen, tramadol -Pulm consult, Dr. Vera -ID consult, Dr. Ritter - r/o pneumoconiosis, old TB , aspergillosis? etc - concur with broad spectrum IV antibiotics , chest PT Leukocytosis - WBCs in 13s to 16s - likely 2/2 to steroid use Hypothyroidism -endo consult, Dr. Ang R/O Tuberculosis -3 negative sputum samples -isolation precaution d/c Prediabetes - elevated BS - Likely 2/2 to steroid use -ISS acqhs -hypoglycemia protocol Electrolyte imbalance -hyperphos/hypermag -monitor and correct accordingly Pancreatic lesion -pancreatic protocol CT: lesion consistent with pancreatic tissue; no further workup -GI consult, Dr. Clifford Ppx -SCD contraindicated due to PVD -protonix 40mg IV qd -heparin 5000U sc q12 <Aj Ragsdale - Last Filed: 07/20/18 10:38> Objective - Vital Signs/Intake and Output Vital Signs (last 24 hours): Temp Pulse Resp BP Pulse Ox 99.0 F 86 20 135/83 96 07/20/18 07:00 07/20/18 08:33 07/20/18 07:00 07/20/18 07:00 07/20/18 07:00 Intake and Output: 07/20/18 07/20/18 06:59 18:59 Output Total 1200 Balance -1200 - Medications Medications: Current Medications Acetaminophen (Tylenol 325mg Tab) 650 mg PO Q6 PRN PRN Reason: Pain, Mild (1-3) Last Admin: 07/09/18 12:03 Dose: 650 mg Albuterol/Ipratropium (Duoneb 3 Mg/0.5 Mg (3 Ml) Ud) 3 ml INH RQ4 [facility] Last Admin: 07/20/18 07:30 Dose: 3 ml Budesonide (Pulmicort Respules) 0.5 mg INH RQ12 [facility] Last Admin: 07/20/18 07:30 Dose: 0.5 mg Dextrose (Dextrose 50% Inj) 0 ml IV STAT PRN; Protocol PRN Reason: Hypoglycemia Protocol Dextrose (Glutose 15) 0 gm PO ONCE PRN; Protocol PRN Reason: Hypoglycemia Protocol Fluconazole (Diflucan) 200 mg PO DAILY [facility]; Protocol Last Admin: 07/20/18 09:28 Dose: 200 mg Glucagon (Glucagen Diagnostic Kit) 0 mg IM STAT PRN; Protocol PRN Reason: Hypoglycemia Protocol Guaifenesin/Dextromethorphan (Robitussin Dm) 5 ml PO Q4H PRN PRN Reason: Cough Last Admin: 07/18/18 02:19 Dose: 5 ml Heparin Sodium (Porcine) (Heparin) 5,000 units SC Q12 [facility] Last Admin: 07/20/18 09:29 Dose: 5,000 units Piperacillin Sod/Tazobactam Sod (Zosyn 3.375 Gm Iv Premix) 3.375 gm in 50 mls @ 100 mls/hr IVPB Q6H [facility]; Protocol Last Admin: 07/20/18 05:55 Dose: 100 mls/hr Azithromycin 500 mg/ Sodium (Chloride) 250 mls @ 250 mls/hr IVPB DAILY [facility]; Protocol Last Admin: 07/20/18 09:29 Dose: 250 mls/hr Ibuprofen (Motrin Tab) 600 mg PO TID PRN PRN Reason: Pain, moderate (4-7) Last Admin: 07/12/18 17:15 Dose: 600 mg Insulin Human Regular (Novolin R) 0 unit SC ACHS [facility]; Protocol Last Admin: 07/20/18 08:28 Dose: Not Given Methylprednisolone (Solu-Medrol) 60 mg IVP Q6 [facility] Last Admin: 07/20/18 05:56 Dose: 60 mg Multivitamins (Hexavitamin) 1 tab PO DAILY [facility] Last Admin: 07/20/18 09:29 Dose: 1 tab Pantoprazole Sodium (Protonix Ec Tab) 40 mg PO DAILY [facility] Last Admin: 07/20/18 09:29 Dose: 40 mg Tramadol HCl (Ultram) 25 mg PO TID PRN PRN Reason: Pain, severe (8-10) Last Admin: 07/14/18 08:29 Dose: 25 mg - Labs Labs: 07/20/18 07:35 07/20/18 07:35 PT 14.0 SECONDS (9.7-12.2) H 07/14/18 16:22 INR 1.3 07/14/18 16:22 APTT 32 SECONDS (21-34) 07/14/18 16:22 Attending/Attestation - Attestation I have personally seen and examined this patient.: Yes I have fully participated in the care of the patient.: Yes I have reviewed all pertinent clinical information, including history, physical exam and plan: Yes
[2018-07-19] MEDS: (Novolin R) Insulin Human Regular 100 units/ml vial SC SCH ×4 (07:33→21:46)
[2018-07-19 07:37] LABS: BASO % 0.2 % (0.0-2.0); HEMOGLOBIN 13.8 g/dL (12.0-18.0); LYMPH # 0.4 K/uL (1.0-4.3); LYMPH % 2.1 % (20.0-40.0); MEAN CELL VOLUME 98.9 fL (80.0-94.0); MEAN CORPUSCULAR HEMOGLOBIN 32.8 pg (27.0-31.0); MEAN CORPUSCULAR HGB CONC 33.2 g/dL (33.0-37.0); MONO # 0.4 K/uL (0.0-0.8); MONO % 2.3 % (0.0-10.0); NEUT # 16.3 K/uL (1.8-7.0); NEUT % 95.4 % (50.0-75.0); PLATELET COUNT 217 K/uL (130-400); RBC 4.22 Mil/uL (4.40-5.90); RED CELL DISTRIBUTION WIDTH 15.6 % (11.5-14.5); WHITE BLOOD COUNT 17.1 K/uL (4.8-10.8)
[2018-07-19 07:56] LABS: ALB/GLOB RATIO 0.7 (1.0-2.1); ALBUMIN 2.8 g/dL (3.5-5.0); ALT/SGPT 20 U/L (21-72); AST/SGOT 22 U/L (17-59); BLOOD UREA NITROGEN 28 mg/dL (9-20); GFR NON-AFRICAN AMERICAN > 60
[2018-07-19 08:44] LABS: LYMPHOCYTE 3 % (20-40); MONOCYTE 2 % (0-10); NEUTROPHIL 95 % (50-75); PLATELET ESTIMATE NORMAL (NORMAL); TOTAL CELLS COUNTED 100
[2018-07-19 08:45] LABS: ANISOCYTOSIS SLIGHT; LARGE PLATELETS PRESENT; TOXIC GRANULATION PRESENT
[2018-07-19 08:47] LABS: POLYCHROMIC SLIGHT
[2018-07-19] MEDS: Multiple Vitamins Tab PO SCH (09:51)
[2018-07-19] MEDS: Azithromycin 500 MG in Sodium Chloride 0.9% 250 ML IVPB SCH (09:52)
--- NOTE | 2018-07-19 13:57 | CP.PCM.CON ---
History of Present Illness - History of Present Illness History of Present Illness: 53 year old Somali male presented to the ER on 07/08/18 with complaint of SOB with associated chest pain on exertion with productive cough that started 15 days ago. When he coughs, he produces a thick, sticky, white sputum; reports no blood or mucus in sputum and reports 10kg weight loss over last 2 years, mostly in last 3 months. PMH: prediabetes Allergies: NKDA PSHx: Unspecified abdominal surgery 20 years ago FamHx: Mother and father had diabetes and of [place] in their 70s SocHx: Quit tobacco 1 month ago, previous 1/2 ppd x 40 years. Quit alcohol 1 month ago, illegally immigrated from [place] 2 years ago. Currently homeless and living in friend's garage. Review of Systems - Review of Systems All systems: reviewed and no additional remarkable complaints except - Constitutional Constitutional: As Per HPI - EENT Eyes: absent: As Per HPI, Blind Spots, Blurred Vision, Change in Vision, Decreased Night Vision, Diplopia, Discharge, Dry Eye, Exophthalmos, Floaters, Irritation, Itchy Eyes, Loss of Peripheral Vision, Pain, Photophobia, Requires Corrective Lenses, Sees Flashes, Spots in Vision, Tunnel Vision, Other Visual Disturbances, Loss of Vision, Other Ears: absent: As Per HPI, Decreased Hearing, Ear Discharge, Ear Pain, Tinnitus, Abnormal Hearing, Disequilibrium, Dizziness, Other Nose/Mouth/Throat: absent: As Per HPI, Epistaxis, Nasal Congestion, Nasal Discharge, Nasal Obstruction, Nasal Trauma, Nose Pain, Post Nasal Drip, Sinus Pain, Sinus Pressure, Bleeding Gums, Change in Voice, Dental Pain, Dry Mouth, Dysphagia, Halitosis, Hoarsness, Lip Swelling, Mouth Lesions, Mouth Pain, Odynophagia, Sore Throat, Throat Swelling, Tongue Swelling, Facial Pain, Neck Pain, Neck Mass, Other - Cardiovascular Cardiovascular: As Per HPI - Respiratory Respiratory: As Per HPI - Gastrointestinal Gastrointestinal: absent: As Per HPI, Abdominal Pain, Belching, Bloating, Change in Bowel Habits, Change in Stool Character, Coffee Ground Emesis, Constipation, Cramping, Diarrhea, Dyspepsia, Dysphagia, Early Satiety, Excessive Flatus, Fecal Incontinence, Heartburn, Hematemesis, Hematochezia, Loose Stools, Melena, Nausea, Odynophagia, Temesmus, Vomiting, Other - Genitourinary Genitourinary: absent: As Per HPI, Change in Urinary Stream, Difficulty Urinating, Dysuria, Flank Pain, Hematuria, Pyuria, Nocturia, Urinary Incontinence, Urinary Frequency, Urinary Hesitance, Urinary Urgency, Voiding Freq/Small Amts, Freq UTI, Hx Renal/Bladder Calculi, Hx /Renal Surgery, Bladder Distension, Other - Musculoskeletal Musculoskeletal: absent: As Per HPI, Abnormal Gait, Arthralgias, Atrophy, Back Pain, Deformity, Joint Swelling, Limited Range of Motion, Loss of Height, Muscle Cramps, Muscle Weakness, Myalgias, Neck Pain, Numbness, Radiating Pain into Limb, Stiffness, Tingling, Other - Integumentary Integumentary: absent: As Per HPI, Acne, Alopecia, Bleeding Lesions, Change in Hair, Change in Nails, Change in Pigmentation, Changing Lesions, Dry Skin, Erythema, Furuncle, Hirsutism, Lesions, New Lesions, Non-Healing Lesions, Photosensitivity, Pruritus, Rash, Skin Pain, Skin Ulcer, Sores, Striae, Swelling, Unusual Bruising, Wounds, Jaundice, Other - Neurological Neurological: absent: As Per HPI, Abnormal Gait, Abnormal Hearing, Abnormal Movements, Abnormal Speech, Behavioral Changes, Burning Sensations, Confusion, Convulsions, Disequilibrium, Dizziness, Numbness, Focal Weakness, Frequent Falls, Headaches, Lack of Coordination, Loss of Vision, Memory Loss, Paresthesias, Radicular Pain, Restless Legs, Sensory Deficit, Syncope, Tingling, Tremor, Vertigo, Weakness, Other Visual Disturbances, Other - Psychiatric Psychiatric: absent: As Per HPI, Abnormal Sleep Pattern, Anhedonia, Anxiety, Auditory Hallucinations, Behavioral Changes, Change in Appetite, Change in Libido, Confusion, Depression, Difficulty Concentrating, Hallucinations, Homicidal Ideation, Hopelessness, Irritability, Memory Loss, Mood Swings, Panic Attacks, Paranoia, Suicidal Ideation, Visual Hallucinations, Tactile Hallucinations, Other - Endocrine Endocrine: absent: As Per HPI, Change in Body Appearance, Change in Libido, Cold Intolorance, Deepening of Voice, Excessive Sweating, Fatigue, Flushing, Heat Intolorance, Increase in Ring/Shoe/Hat Size, Palpitations, Polydipsia, Polyphagia, Polyuria, Other - Hematologic/Lymphatic Hematologic: absent: As Per HPI, Easy Bleeding, Easy Bruising, Lymphadenopathy, Other Past Patient History - Past Social History Smoking Status: Former Smoker - CARDIAC Hx Hypotension: Yes - MUSCULOSKELETAL/RHEUMATOLOGICAL Hx Falls: Yes - PSYCHIATRIC Hx Substance Use: No - SURGICAL HISTORY Hx Surgeries: Yes Other/Comment: peptic ulcer surgery - ANESTHESIA Hx Anesthesia: No Hx Anesthesia Reactions: No Meds Allergies/Adverse Reactions: Allergies Allergy/AdvReac Type Severity Reaction Status Date / Time No Known Allergies Allergy Unverified 07/08/18 15:44 - Medications Medications: Current Medications Acetaminophen (Tylenol 325mg Tab) 650 mg PO Q6 PRN PRN Reason: Pain, Mild (1-3) Last Admin: 07/09/18 12:03 Dose: 650 mg Albuterol/Ipratropium (Duoneb 3 Mg/0.5 Mg (3 Ml) Ud) 3 ml INH RQ4 [facility] Last Admin: 07/19/18 11:30 Dose: 3 ml Budesonide (Pulmicort Respules) 0.5 mg INH RQ12 [facility] Last Admin: 07/19/18 07:20 Dose: 0.5 mg Dextrose (Dextrose 50% Inj) 0 ml IV STAT PRN; Protocol PRN Reason: Hypoglycemia Protocol Dextrose (Glutose 15) 0 gm PO ONCE PRN; Protocol PRN Reason: Hypoglycemia Protocol Fluconazole (Diflucan) 200 mg PO DAILY [facility]; Protocol Last Admin: 07/19/18 09:51 Dose: 200 mg Glucagon (Glucagen Diagnostic Kit) 0 mg IM STAT PRN; Protocol PRN Reason: Hypoglycemia Protocol Guaifenesin/Dextromethorphan (Robitussin Dm) 5 ml PO Q4H PRN PRN Reason: Cough Last Admin: 07/18/18 02:19 Dose: 5 ml Heparin Sodium (Porcine) (Heparin) 5,000 units SC Q12 [facility] Last Admin: 07/19/18 09:52 Dose: 5,000 units Piperacillin Sod/Tazobactam Sod (Zosyn 3.375 Gm Iv Premix) 3.375 gm in 50 mls @ 100 mls/hr IVPB Q6H [facility]; Protocol Last Admin: 07/19/18 11:53 Dose: 100 mls/hr Azithromycin 500 mg/ Sodium (Chloride) 250 mls @ 250 mls/hr IVPB DAILY [facility]; Protocol Last Admin: 07/19/18 09:52 Dose: 250 mls/hr Ibuprofen (Motrin Tab) 600 mg PO TID PRN PRN Reason: Pain, moderate (4-7) Last Admin: 07/12/18 17:15 Dose: 600 mg Insulin Human Regular (Novolin R) 0 unit SC ACHS [facility]; Protocol Last Admin: 07/19/18 12:25 Dose: 6 units Methylprednisolone (Solu-Medrol) 60 mg IVP Q6 [facility] Last Admin: 07/19/18 11:53 Dose: 60 mg Multivitamins (Hexavitamin) 1 tab PO DAILY [facility] Last Admin: 07/19/18 09:51 Dose: 1 tab Pantoprazole Sodium (Protonix Inj) 40 mg IVP DAILY [facility] Last Admin: 07/19/18 09:52 Dose: 40 mg Tramadol HCl (Ultram) 25 mg PO TID PRN PRN Reason: Pain, severe (8-10) Last Admin: 07/14/18 08:29 Dose: 25 mg Physical Exam - Constitutional Appears: Non-toxic, Chronically Ill - Head Exam Head Exam: NORMOCEPHALIC - Eye Exam Eye Exam: absent: Scleral icterus - ENT Exam ENT Exam: Mucous Membranes Dry - Neck Exam Neck exam: Negative for: Lymphadenopathy - Respiratory Exam Respiratory Exam: Decreased Breath Sounds, Prolonged Expiratory Phase, Rales, Rhonchi. absent: Accessory Muscle Use, Chest Wall Tenderness, Respiratory Distress - Cardiovascular Exam Cardiovascular Exam: REGULAR RHYTHM, +S1, +S2 - GI/Abdominal Exam GI & Abdominal Exam: Diminished Bowel Sounds, Soft. absent: Guarding, Rebound, Rigid, Tenderness - Rectal Exam Rectal Exam: Deferred - Exam Exam: NORMAL INSPECTION - Extremities Exam Extremities exam: Negative for: pedal edema - Back Exam Back exam: absent: CVA tenderness (L), CVA tenderness (R) - Neurological Exam Neurological exam: Alert, CN II-XII Intact, Oriented x3, Reflexes Normal - Psychiatric Exam Psychiatric exam: Depressed - Skin Skin Exam: Dry, Intact Results - Vital Signs Recent Vital Signs: Last Vital Signs Temp 98.9 F 07/19/18 07:43 Pulse 103 H 07/19/18 11:54 Resp 20 07/18/18 23:05 BP 153/85 H 07/19/18 07:43 Pulse Ox 97 07/19/18 07:43 - Labs Result Diagrams: 07/19/18 07:24 07/19/18 07:24 Labs: Laboratory Results - last 24 hr 07/10/18 07/18/18 07/18/18 17:04 17:25 21:12 WBC RBC Hgb Hct MCV MCH MCHC RDW Plt Count MPV Neut % (Auto) Lymph % (Auto) [place] % (Auto) Eos % (Auto) Baso % (Auto) Neut # (Auto) Lymph # (Auto) [place] # (Auto) Eos # (Auto) Baso # (Auto) Neutrophils % (Manual) Lymphocytes % (Manual) Monocytes % (Manual) Toxic Granulation Platelet Estimate Large Platelets Polychromasia Anisocytosis (manual) Macrocytosis (manual) Sodium Potassium Chloride Carbon Dioxide Anion Gap BUN Creatinine Est GFR ( Amer) Est GFR (Non-Af Amer) POC Glucose (mg/dL) 226 H 229 H Random Glucose Calcium Phosphorus Magnesium Total Bilirubin AST ALT Alkaline Phosphatase Total Protein Albumin Globulin Albumin/Globulin Ratio Anti-SRP Antibody Not detected 07/19/18 07/19/18 07/19/18 06:12 07:24 07:24 WBC 17.1 H RBC 4.22 L Hgb 13.8 Hct 41.7 MCV 98.9 H MCH 32.8 H MCHC 33.2 RDW 15.6 H Plt Count 217 MPV 9.0 Neut % (Auto) 95.4 H Lymph % (Auto) 2.1 L Aurora % (Auto) 2.3 Eos % (Auto) 0.0 Baso % (Auto) 0.2 Neut # (Auto) 16.3 H Lymph # (Auto) 0.4 L Aurora # (Auto) 0.4 Eos # (Auto) 0.0 Baso # (Auto) 0.0 Neutrophils % (Manual) 95 H Lymphocytes % (Manual) 3 L Monocytes % (Manual) 2 Toxic Granulation Present Platelet Estimate Normal Large Platelets Present Polychromasia Slight Anisocytosis (manual) Slight Macrocytosis (manual) Slight Sodium 133 Potassium 4.9 Chloride 90 L Carbon Dioxide 37 H Anion Gap 11 BUN 28 H Creatinine 0.7 L Est GFR ( Amer) > 60 Est GFR (Non-Af Amer) > 60 POC Glucose (mg/dL) 142 H Random Glucose 155 H Calcium 8.0 L Phosphorus 4.9 H Magnesium 2.4 H Total Bilirubin 0.5 AST 22 ALT 20 L Alkaline Phosphatase 42 Total Protein 6.6 Albumin 2.8 L Globulin 3.8 Albumin/Globulin Ratio 0.7 L Anti-SRP Antibody 07/19/18 10:49 WBC RBC Hgb Hct MCV MCH MCHC RDW Plt Count MPV Neut % (Auto) Lymph % (Auto) Aurora % (Auto) Eos % (Auto) Baso % (Auto) Neut # (Auto) Lymph # (Auto) Aurora # (Auto) Eos # (Auto) Baso # (Auto) Neutrophils % (Manual) Lymphocytes % (Manual) Monocytes % (Manual) Toxic Granulation Platelet Estimate Large Platelets Polychromasia Anisocytosis (manual) Macrocytosis (manual) Sodium Potassium Chloride Carbon Dioxide Anion Gap BUN Creatinine Est GFR ( Amer) Est GFR (Non-Af Amer) POC Glucose (mg/dL) 314 H Random Glucose Calcium Phosphorus Magnesium Total Bilirubin AST ALT Alkaline Phosphatase Total Protein Albumin Globulin Albumin/Globulin Ratio Anti-SRP Antibody Assessment & Plan (1) Chronic respiratory failure with hypoxia Status: Acute Priority: High (2) Pulmonary fibrosis Status: Acute (3) Bronchiectasis Status: Acute - Assessment and Plan (Free Text) Assessment: melissa species from bronchoscopy likely represents colonization- especially on IV antibiotics- as melissa rarely becomes invasive in the lung Etiology of pulmonary fibrosis to be determined- r/o pneumoconiosis, old TB , aspergillosis? etc concur with broad spectrum IV antibiotics , chest PT
[2018-07-20] MEDS: Albuterol-Ipratrop 3 mg / 0.5 (3 ml) UD INH SCH ×8 (00:51→23:43)
[2018-07-20] MEDS: Piperacill/Tazo 3.375gm in Dex 3.375 GM/50 ML BAG IVPB SCH ×2 (05:55→11:29)
[2018-07-20] MEDS: MethylPREDNISolone 40 mg Vial IVP SCH ×3 (05:56→17:27)
[2018-07-20] MEDS: Budesonide 0.5 mg/2 ml Inhal Susp UD INH SCH ×2 (07:30→20:15)
[2018-07-20 07:42] LABS: BASO # 0.1 K/uL (0.0-0.2); BASO % 0.3 % (0.0-2.0); HEMOGLOBIN 13.2 g/dL (12.0-18.0); LYMPH # 0.3 K/uL (1.0-4.3); LYMPH % 1.7 % (20.0-40.0); MEAN CELL VOLUME 99.2 fL (80.0-94.0); MEAN CORPUSCULAR HEMOGLOBIN 32.2 pg (27.0-31.0); MEAN CORPUSCULAR HGB CONC 32.5 g/dL (33.0-37.0); MONO # 0.4 K/uL (0.0-0.8); MONO % 2.4 % (0.0-10.0); NEUT # 17.5 K/uL (1.8-7.0); NEUT % 95.6 % (50.0-75.0); PLATELET COUNT 220 K/uL (130-400); RED CELL DISTRIBUTION WIDTH 15.3 % (11.5-14.5); WHITE BLOOD COUNT 18.3 K/uL (4.8-10.8)
[2018-07-20 08:01] LABS: ALB/GLOB RATIO 0.7 (1.0-2.1); ALBUMIN 2.6 g/dL (3.5-5.0); ALT/SGPT 24 U/L (21-72); AST/SGOT 23 U/L (17-59); BLOOD UREA NITROGEN 24 mg/dL (9-20); CALCIUM 7.7 mg/dl (8.6-10.4); GFR NON-AFRICAN AMERICAN > 60
[2018-07-20] MEDS: (Novolin R) Insulin Human Regular 100 units/ml vial SC SCH ×4 (08:28→21:49)
[2018-07-20 08:56] LABS: LYMPHOCYTE 1 % (20-40); MONOCYTE 2 % (0-10); NEUTROPHIL 97 % (50-75); TOTAL CELLS COUNTED 100
[2018-07-20 08:57] LABS: PLATELET ESTIMATE NORMAL (NORMAL)
[2018-07-20] MEDS: Pantoprazole 40 mg EC Tab PO SCH (09:29)
[2018-07-20] MEDS: Multiple Vitamins Tab PO SCH (09:29)
[2018-07-20] MEDS: Azithromycin 500 MG in Sodium Chloride 0.9% 250 ML IVPB SCH (09:29)
--- NOTE | 2018-07-20 11:22 | CP.PCM.PN ---
<Irasema Gibson - Last Filed: 07/20/18 14:55> Subjective - Date & Time of Evaluation Date of Evaluation: 07/20/18 Time of Evaluation: 08:00 - Subjective Subjective: Pt examined at bedside. No acute overnight events. Pt reports continued SOB with activity such as walking to restroom. Used BiPAP overnight and switched to NC during morn, with insufficient relief of symptoms; pt placed back on non- rebreather. Per nursing, pt had 5 loose BMs yesterday morning, and 1 this morning; stool sent for testing. Pt denies chest pain, nausea. Objective - Vital Signs/Intake and Output Vital Signs (last 24 hours): Temp Pulse Resp BP Pulse Ox 99.0 F 86 20 135/83 96 07/20/18 07:00 07/20/18 08:33 07/20/18 07:00 07/20/18 07:00 07/20/18 07:00 Intake and Output: 07/20/18 07/20/18 06:59 18:59 Output Total 1200 Balance -1200 - Medications Medications: Current Medications Acetaminophen (Tylenol 325mg Tab) 650 mg PO Q6 PRN PRN Reason: Pain, Mild (1-3) Last Admin: 07/09/18 12:03 Dose: 650 mg Albuterol/Ipratropium (Duoneb 3 Mg/0.5 Mg (3 Ml) Ud) 3 ml INH RQ4 [facility] Last Admin: 07/20/18 07:30 Dose: 3 ml Budesonide (Pulmicort Respules) 0.5 mg INH RQ12 [facility] Last Admin: 07/20/18 07:30 Dose: 0.5 mg Dextrose (Dextrose 50% Inj) 0 ml IV STAT PRN; Protocol PRN Reason: Hypoglycemia Protocol Dextrose (Glutose 15) 0 gm PO ONCE PRN; Protocol PRN Reason: Hypoglycemia Protocol Fluconazole (Diflucan) 200 mg PO DAILY [facility]; Protocol Last Admin: 07/20/18 09:28 Dose: 200 mg Glucagon (Glucagen Diagnostic Kit) 0 mg IM STAT PRN; Protocol PRN Reason: Hypoglycemia Protocol Guaifenesin/Dextromethorphan (Robitussin Dm) 5 ml PO Q4H PRN PRN Reason: Cough Last Admin: 07/18/18 02:19 Dose: 5 ml Heparin Sodium (Porcine) (Heparin) 5,000 units SC Q12 [facility] Last Admin: 07/20/18 09:29 Dose: 5,000 units Piperacillin Sod/Tazobactam Sod (Zosyn 3.375 Gm Iv Premix) 3.375 gm in 50 mls @ 100 mls/hr IVPB Q6H [facility]; Protocol Last Admin: 07/20/18 05:55 Dose: 100 mls/hr Azithromycin 500 mg/ Sodium (Chloride) 250 mls @ 250 mls/hr IVPB DAILY [facility]; Protocol Last Admin: 07/20/18 09:29 Dose: 250 mls/hr Ibuprofen (Motrin Tab) 600 mg PO TID PRN PRN Reason: Pain, moderate (4-7) Last Admin: 07/12/18 17:15 Dose: 600 mg Insulin Human Regular (Novolin R) 0 unit SC ACHS [facility]; Protocol Last Admin: 07/20/18 08:28 Dose: Not Given Methylprednisolone (Solu-Medrol) 60 mg IVP Q6 [facility] Last Admin: 07/20/18 05:56 Dose: 60 mg Multivitamins (Hexavitamin) 1 tab PO DAILY [facility] Last Admin: 07/20/18 09:29 Dose: 1 tab Pantoprazole Sodium (Protonix Ec Tab) 40 mg PO DAILY [facility] Last Admin: 07/20/18 09:29 Dose: 40 mg Tramadol HCl (Ultram) 25 mg PO TID PRN PRN Reason: Pain, severe (8-10) Last Admin: 07/14/18 08:29 Dose: 25 mg - Labs Labs: 07/20/18 07:35 07/20/18 07:35 PT 14.0 SECONDS (9.7-12.2) H 07/14/18 16:22 INR 1.3 07/14/18 16:22 APTT 32 SECONDS (21-34) 07/14/18 16:22 - Constitutional Appears: Non-toxic, No Acute Distress - Head Exam Head Exam: ATRAUMATIC, NORMAL INSPECTION, NORMOCEPHALIC - Eye Exam Eye Exam: EOMI, Normal appearance - ENT Exam ENT Exam: Mucous Membranes Moist, Normal Exam - Neck Exam Neck Exam: Normal Inspection - Respiratory Exam Respiratory Exam: Accessory Muscle Use, Rales - GI/Abdominal Exam GI & Abdominal Exam: Soft, Normal Bowel Sounds. absent: Tenderness - Extremities Exam Extremities Exam: Full ROM. absent: Calf Tenderness, Normal Inspection (stasis dermatitis on B/L LEs), Pedal Edema - Neurological Exam Neurological Exam: Alert, Awake, Normal Gait, Oriented x3 - Psychiatric Exam Psychiatric exam: Normal Affect, Normal Mood - Skin Skin Exam: Dry, Intact, Normal Color, Warm Assessment and Plan - Assessment and Plan (Free Text) Assessment: 63 year old male admitted for evaluation and treatment of suspected interstitial lung disease. Plan: Suspected ILD -f/u pathology -bronchial cxs positive for Ramonita -duonebs, guaifenesan/dextromethophan, pulmicort, solu-medrol, -pain control prn, ultram, ibuprofen, acetaminophen -IV Abx/Antifungals, azithromycin, micafungin, merem, vanco Ramonita -micafungin DM2 -ISS -accuchecks achs Diarrhea -immodium -f/u stool studies Ppx -SCD contraindicated in PVD -DVT ppx, heparin 5000 sc q12 -GI ppx, protonix -encourage OOB to chair, ambulation Discussed with Dr. Wellington -Irasema Gibson, PGY-1 <David Wellington H - Last Filed: 07/20/18 15:50> Objective - Vital Signs/Intake and Output Vital Signs (last 24 hours): Temp Pulse Resp BP Pulse Ox 98.1 F 80 20 143/84 100 07/20/18 15:30 07/20/18 15:30 07/20/18 15:30 07/20/18 15:30 07/20/18 15:30 Intake and Output: 07/20/18 07/20/18 06:59 18:59 Intake Total 350 Output Total 1200 400 Balance -1200 -50 - Medications Medications: Current Medications Acetaminophen (Tylenol 325mg Tab) 650 mg PO Q6 PRN PRN Reason: Pain, Mild (1-3) Last Admin: 07/09/18 12:03 Dose: 650 mg Albuterol/Ipratropium (Duoneb 3 Mg/0.5 Mg (3 Ml) Ud) 3 ml INH RQ4 [facility] Last Admin: 07/20/18 11:29 Dose: 3 ml Budesonide (Pulmicort Respules) 0.5 mg INH RQ12 [facility] Last Admin: 07/20/18 07:30 Dose: 0.5 mg Dextrose (Dextrose 50% Inj) 0 ml IV STAT PRN; Protocol PRN Reason: Hypoglycemia Protocol Dextrose (Glutose 15) 0 gm PO ONCE PRN; Protocol PRN Reason: Hypoglycemia Protocol Glucagon (Glucagen Diagnostic Kit) 0 mg IM STAT PRN; Protocol PRN Reason: Hypoglycemia Protocol Guaifenesin/Dextromethorphan (Robitussin Dm) 5 ml PO Q4H PRN PRN Reason: Cough Last Admin: 07/18/18 02:19 Dose: 5 ml Heparin Sodium (Porcine) (Heparin) 5,000 units SC Q12 [facility] Last Admin: 07/20/18 09:29 Dose: 5,000 units Azithromycin 500 mg/ Sodium (Chloride) 250 mls @ 250 mls/hr IVPB DAILY [facility]; Protocol Last Admin: 07/20/18 09:29 Dose: 250 mls/hr Meropenem 1 gm/ Sodium (Chloride) 100 mls @ 100 mls/hr IVPB Q8H [facility]; Protocol Last Admin: 07/20/18 13:27 Dose: 100 mls/hr Micafungin Sodium 100 mg/ (Sodium Chloride) 100 mls @ 100 mls/hr IV Q24H [facility]; Protocol Last Admin: 07/20/18 14:23 Dose: 100 mls/hr Vancomycin HCl 1 gm/ Sodium (Chloride) 250 mls @ 166.7 mls/hr IVPB Q24H [facility]; Protocol Last Admin: 07/20/18 15:40 Dose: 166.7 mls/hr Ibuprofen (Motrin Tab) 600 mg PO TID PRN PRN Reason: Pain, moderate (4-7) Last Admin: 07/12/18 17:15 Dose: 600 mg Insulin Human Regular (Novolin R) 0 unit SC ACHS [facility]; Protocol Last Admin: 07/20/18 12:21 Dose: 6 units Methylprednisolone (Solu-Medrol) 60 mg IVP Q6 [facility] Last Admin: 07/20/18 11:29 Dose: 60 mg Multivitamins (Hexavitamin) 1 tab PO DAILY [facility] Last Admin: 07/20/18 09:29 Dose: 1 tab Pantoprazole Sodium (Protonix Ec Tab) 40 mg PO DAILY [facility] Last Admin: 07/20/18 09:29 Dose: 40 mg Tramadol HCl (Ultram) 25 mg PO TID PRN PRN Reason: Pain, severe (8-10) Last Admin: 07/14/18 08:29 Dose: 25 mg - Labs Labs: 07/20/18 07:35 07/20/18 07:35 PT 14.0 SECONDS (9.7-12.2) H 07/14/18 16:22 INR 1.3 07/14/18 16:22 APTT 32 SECONDS (21-34) 07/14/18 16:22 Attending/Attestation - Attestation I have personally seen and examined this patient.: Yes I have fully participated in the care of the patient.: Yes I have reviewed all pertinent clinical information, including history, physical exam and plan: Yes Notes (Text): 07/20/18 15:47 Medical attending: Patient was seen and examined by me. Agree with the above note by the medical scientist We saw the patient together. The patient still has shortness of breath particualary when he tries to ambulate Also pending the biopsy from the bronchospcopy at this time We are continuing with the solumedrol, nebulizers, and inhalers at this time David Wellington
--- NOTE | 2018-07-20 12:22 | CP.PCM.PN ---
Subjective - Date & Time of Evaluation Date of Evaluation: 07/20/18 Time of Evaluation: 08:00 - Subjective Subjective: doing poorly on NRB mask DNI in effect Objective - Vital Signs/Intake and Output Vital Signs (last 24 hours): Temp Pulse Resp BP Pulse Ox 99.0 F 86 20 135/83 96 07/20/18 07:00 07/20/18 12:02 07/20/18 07:00 07/20/18 07:00 07/20/18 07:00 Intake and Output: 07/20/18 07/20/18 06:59 18:59 Output Total 1200 Balance -1200 - Medications Medications: Current Medications Acetaminophen (Tylenol 325mg Tab) 650 mg PO Q6 PRN PRN Reason: Pain, Mild (1-3) Last Admin: 07/09/18 12:03 Dose: 650 mg Albuterol/Ipratropium (Duoneb 3 Mg/0.5 Mg (3 Ml) Ud) 3 ml INH RQ4 [facility] Last Admin: 07/20/18 11:29 Dose: 3 ml Budesonide (Pulmicort Respules) 0.5 mg INH RQ12 [facility] Last Admin: 07/20/18 07:30 Dose: 0.5 mg Dextrose (Dextrose 50% Inj) 0 ml IV STAT PRN; Protocol PRN Reason: Hypoglycemia Protocol Dextrose (Glutose 15) 0 gm PO ONCE PRN; Protocol PRN Reason: Hypoglycemia Protocol Fluconazole (Diflucan) 200 mg PO DAILY [facility]; Protocol Last Admin: 07/20/18 09:28 Dose: 200 mg Glucagon (Glucagen Diagnostic Kit) 0 mg IM STAT PRN; Protocol PRN Reason: Hypoglycemia Protocol Guaifenesin/Dextromethorphan (Robitussin Dm) 5 ml PO Q4H PRN PRN Reason: Cough Last Admin: 07/18/18 02:19 Dose: 5 ml Heparin Sodium (Porcine) (Heparin) 5,000 units SC Q12 [facility] Last Admin: 07/20/18 09:29 Dose: 5,000 units Piperacillin Sod/Tazobactam Sod (Zosyn 3.375 Gm Iv Premix) 3.375 gm in 50 mls @ 100 mls/hr IVPB Q6H [facility]; Protocol Last Admin: 07/20/18 11:29 Dose: 100 mls/hr Azithromycin 500 mg/ Sodium (Chloride) 250 mls @ 250 mls/hr IVPB DAILY [facility]; Protocol Last Admin: 07/20/18 09:29 Dose: 250 mls/hr Ibuprofen (Motrin Tab) 600 mg PO TID PRN PRN Reason: Pain, moderate (4-7) Last Admin: 07/12/18 17:15 Dose: 600 mg Insulin Human Regular (Novolin R) 0 unit SC ACHS [facility]; Protocol Last Admin: 07/20/18 08:28 Dose: Not Given Methylprednisolone (Solu-Medrol) 60 mg IVP Q6 [facility] Last Admin: 07/20/18 05:56 Dose: 60 mg Multivitamins (Hexavitamin) 1 tab PO DAILY [facility] Last Admin: 07/20/18 09:29 Dose: 1 tab Pantoprazole Sodium (Protonix Ec Tab) 40 mg PO DAILY [facility] Last Admin: 07/20/18 09:29 Dose: 40 mg Tramadol HCl (Ultram) 25 mg PO TID PRN PRN Reason: Pain, severe (8-10) Last Admin: 07/14/18 08:29 Dose: 25 mg - Labs Labs: 07/20/18 07:35 07/20/18 07:35 PT 14.0 SECONDS (9.7-12.2) H 07/14/18 16:22 INR 1.3 07/14/18 16:22 APTT 32 SECONDS (21-34) 07/14/18 16:22 - Constitutional Appears: Confused, Cachectic, Chronically Ill - Head Exam Head Exam: NORMOCEPHALIC - Eye Exam Eye Exam: absent: PERRL - ENT Exam ENT Exam: Mucous Membranes Dry - Neck Exam Neck Exam: absent: Lymphadenopathy - Respiratory Exam Respiratory Exam: Decreased Breath Sounds, Prolonged Expiratory Phase, Rhonchi - Cardiovascular Exam Cardiovascular Exam: REGULAR RHYTHM - GI/Abdominal Exam GI & Abdominal Exam: Distended, Soft - Rectal Exam Rectal Exam: Deferred - Extremities Exam Extremities Exam: absent: Calf Tenderness - Back Exam Back Exam: absent: CVA tenderness (L), CVA tenderness (R) - Neurological Exam Neurological Exam: Alert - Psychiatric Exam Psychiatric exam: Depressed Assessment and Plan (1) Chronic respiratory failure with hypoxia Status: Acute (2) Pulmonary fibrosis Status: Acute (3) Bronchiectasis Status: Acute - Assessment and Plan (Free Text) Assessment: doing poorly'all culktures pending' poor prognosis
[2018-07-20] MEDS: Meropenem 1 GM in Sodium Chloride 0.9% 100 ML IVPB SCH ×2 (13:27→21:24)
[2018-07-20] MEDS: Micafungin 100 MG in Sodium Chloride 0.9% 100 ML IV SCH (14:23)
--- NOTE | 2018-07-20 16:45 | CP.PCM.PN ---
Subjective - Date & Time of Evaluation Date of Evaluation: 07/20/18 Time of Evaluation: 09:00 - Subjective Subjective: patient seen and examined Dyspnea on exertion Less cough Afebrile Pathology consistent with fibrosis of lung Switch to nasal cannula continue steroids Nebulizer treatment Will need open lung biopsy Objective - Vital Signs/Intake and Output Vital Signs (last 24 hours): Temp Pulse Resp BP Pulse Ox 98.1 F 80 20 143/84 100 07/20/18 15:30 07/20/18 15:30 07/20/18 15:30 07/20/18 15:30 07/20/18 15:30 Intake and Output: 07/20/18 07/20/18 06:59 18:59 Intake Total 350 Output Total 1200 400 Balance -1200 -50 - Medications Medications: Current Medications Acetaminophen (Tylenol 325mg Tab) 650 mg PO Q6 PRN PRN Reason: Pain, Mild (1-3) Last Admin: 07/09/18 12:03 Dose: 650 mg Albuterol/Ipratropium (Duoneb 3 Mg/0.5 Mg (3 Ml) Ud) 3 ml INH RQ4 [facility] Last Admin: 07/20/18 11:55 Dose: Not Given Budesonide (Pulmicort Respules) 0.5 mg INH RQ12 [facility] Last Admin: 07/20/18 07:30 Dose: 0.5 mg Dextrose (Dextrose 50% Inj) 0 ml IV STAT PRN; Protocol PRN Reason: Hypoglycemia Protocol Dextrose (Glutose 15) 0 gm PO ONCE PRN; Protocol PRN Reason: Hypoglycemia Protocol Glucagon (Glucagen Diagnostic Kit) 0 mg IM STAT PRN; Protocol PRN Reason: Hypoglycemia Protocol Guaifenesin/Dextromethorphan (Robitussin Dm) 5 ml PO Q4H PRN PRN Reason: Cough Last Admin: 07/18/18 02:19 Dose: 5 ml Heparin Sodium (Porcine) (Heparin) 5,000 units SC Q12 [facility] Last Admin: 07/20/18 09:29 Dose: 5,000 units Azithromycin 500 mg/ Sodium (Chloride) 250 mls @ 250 mls/hr IVPB DAILY [facility]; Protocol Last Admin: 07/20/18 09:29 Dose: 250 mls/hr Meropenem 1 gm/ Sodium (Chloride) 100 mls @ 100 mls/hr IVPB Q8H [facility]; Protocol Last Admin: 07/20/18 13:27 Dose: 100 mls/hr Micafungin Sodium 100 mg/ (Sodium Chloride) 100 mls @ 100 mls/hr IV Q24H [facility]; Protocol Last Admin: 07/20/18 14:23 Dose: 100 mls/hr Vancomycin HCl 1 gm/ Sodium (Chloride) 250 mls @ 166.7 mls/hr IVPB Q24H [facility]; Pr otocol Last Admin: 07/20/18 15:40 Dose: 166.7 mls/hr Ibuprofen (Motrin Tab) 600 mg PO TID PRN PRN Reason: Pain, moderate (4-7) Last Admin: 07/12/18 17:15 Dose: 600 mg Insulin Human Regular (Novolin R) 0 unit SC ACHS [facility]; Protocol Last Admin: 07/20/18 12:21 Dose: 6 units Methylprednisolone (Solu-Medrol) 60 mg IVP Q6 [facility] Last Admin: 07/20/18 11:29 Dose: 60 mg Multivitamins (Hexavitamin) 1 tab PO DAILY [facility] Last Admin: 07/20/18 09:29 Dose: 1 tab Pantoprazole Sodium (Protonix Ec Tab) 40 mg PO DAILY [facility] Last Admin: 07/20/18 09:29 Dose: 40 mg Tramadol HCl (Ultram) 25 mg PO TID PRN PRN Reason: Pain, severe (8-10) Last Admin: 07/14/18 08:29 Dose: 25 mg - Labs Labs: 07/20/18 07:35 07/20/18 07:35 PT 14.0 SECONDS (9.7-12.2) H 07/14/18 16:22 INR 1.3 07/14/18 16:22 APTT 32 SECONDS (21-34) 07/14/18 16:22 Assessment and Plan (1) Pulmonary fibrosis Status: Acute (2) Chronic respiratory failure with hypoxia Status: Acute
[2018-07-21] MEDS: MethylPREDNISolone 40 mg Vial IVP SCH ×5 (00:11→23:45)
[2018-07-21] MEDS: Albuterol-Ipratrop 3 mg / 0.5 (3 ml) UD INH SCH ×5 (03:10→19:10)
[2018-07-21] MEDS: Meropenem 1 GM in Sodium Chloride 0.9% 100 ML IVPB SCH ×3 (05:00→22:07)
[2018-07-21] MEDS: Budesonide 0.5 mg/2 ml Inhal Susp UD INH SCH ×2 (07:40→19:20)
[2018-07-21 07:56] LABS: BASO % 0.1 % (0.0-2.0); HEMOGLOBIN 13.2 g/dL (12.0-18.0); LYMPH # 0.2 K/uL (1.0-4.3); LYMPH % 1.3 % (20.0-40.0); MEAN CELL VOLUME 98.2 fL (80.0-94.0); MEAN CORPUSCULAR HGB CONC 33.6 g/dL (33.0-37.0); MEAN PLATELET VOLUME 9.1 fL (7.2-11.7); MONO # 0.4 K/uL (0.0-0.8); MONO % 2.3 % (0.0-10.0); NEUT # 15.3 K/uL (1.8-7.0); NEUT % 96.3 % (50.0-75.0); PLATELET COUNT 210 K/uL (130-400); RBC 4.01 Mil/uL (4.40-5.90); RED CELL DISTRIBUTION WIDTH 16.1 % (11.5-14.5); WHITE BLOOD COUNT 15.9 K/uL (4.8-10.8)
[2018-07-21] MEDS: (Novolin R) Insulin Human Regular 100 units/ml vial SC SCH ×4 (08:20→22:08)
[2018-07-21 08:29] LABS: ALB/GLOB RATIO 0.8 (1.0-2.1); ALBUMIN 2.6 g/dL (3.5-5.0); ALT/SGPT 27 U/L (21-72); AST/SGOT 30 U/L (17-59); BLOOD UREA NITROGEN 24 mg/dL (9-20); CALCIUM 7.8 mg/dl (8.6-10.4); GFR NON-AFRICAN AMERICAN > 60
--- NOTE | 2018-07-21 08:59 | CP.PCM.PN ---
<Irasema Gibson - Last Filed: 07/21/18 09:03> Subjective - Date & Time of Evaluation Date of Evaluation: 07/21/18 Time of Evaluation: 07:00 - Subjective Subjective: Patient examined at bedside. No acute overnight events. Patient reports he ambulated well off O2 with PT during evening, becoming only SOB towards the end. Pt reports continued cough. Patient is eating well, ambulating, urinating. Denies chest pain, nausea, abd pain, episodes of diarrhea. Objective - Vital Signs/Intake and Output Vital Signs (last 24 hours): Temp Pulse Resp BP Pulse Ox 97.7 F 88 21 137/85 98 07/21/18 08:01 07/21/18 08:01 07/21/18 08:01 07/21/18 08:01 07/21/18 08:01 - Medications Medications: Current Medications Acetaminophen (Tylenol 325mg Tab) 650 mg PO Q6 PRN PRN Reason: Pain, Mild (1-3) Last Admin: 07/09/18 12:03 Dose: 650 mg Albuterol/Ipratropium (Duoneb 3 Mg/0.5 Mg (3 Ml) Ud) 3 ml INH RQ4 [facility] Last Admin: 07/21/18 03:10 Dose: 3 ml Budesonide (Pulmicort Respules) 0.5 mg INH RQ12 [facility] Last Admin: 07/20/18 20:15 Dose: 0.5 mg Dextrose (Dextrose 50% Inj) 0 ml IV STAT PRN; Protocol PRN Reason: Hypoglycemia Protocol Dextrose (Glutose 15) 0 gm PO ONCE PRN; Protocol PRN Reason: Hypoglycemia Protocol Glucagon (Glucagen Diagnostic Kit) 0 mg IM STAT PRN; Protocol PRN Reason: Hypoglycemia Protocol Guaifenesin/Dextromethorphan (Robitussin Dm) 5 ml PO Q4H PRN PRN Reason: Cough Last Admin: 07/18/18 02:19 Dose: 5 ml Heparin Sodium (Porcine) (Heparin) 5,000 units SC Q12 [facility] Last Admin: 07/20/18 21:24 Dose: 5,000 units Azithromycin 500 mg/ Sodium (Chloride) 250 mls @ 250 mls/hr IVPB DAILY [facility]; Protocol Last Admin: 07/20/18 09:29 Dose: 250 mls/hr Meropenem 1 gm/ Sodium (Chloride) 100 mls @ 100 mls/hr IVPB Q8H [facility]; Protocol Last Admin: 07/21/18 05:00 Dose: 100 mls/hr Micafungin Sodium 100 mg/ (Sodium Chloride) 100 mls @ 100 mls/hr IV Q24H [facility]; Protocol Last Admin: 07/20/18 14:23 Dose: 100 mls/hr Vancomycin HCl 1 gm/ Sodium (Chloride) 250 mls @ 166.7 mls/hr IVPB Q24H [facility]; Protocol Last Admin: 07/20/18 15:40 Dose: 166.7 mls/hr Ibuprofen (Motrin Tab) 600 mg PO TID PRN PRN Reason: Pain, moderate (4-7) Last Admin: 07/12/18 17:15 Dose: 600 mg Insulin Human Regular (Novolin R) 0 unit SC ACHS [facility]; Protocol Last Admin: 07/20/18 21:49 Dose: Not Given Methylprednisolone (Solu-Medrol) 60 mg IVP Q6 [facility] Last Admin: 07/21/18 05:43 Dose: 60 mg Multivitamins (Hexavitamin) 1 tab PO DAILY [facility] Last Admin: 07/20/18 09:29 Dose: 1 tab Pantoprazole Sodium (Protonix Ec Tab) 40 mg PO DAILY [facility] Last Admin: 07/20/18 09:29 Dose: 40 mg Tramadol HCl (Ultram) 25 mg PO TID PRN PRN Reason: Pain, severe (8-10) Last Admin: 07/14/18 08:29 Dose: 25 mg - Labs Labs: 07/21/18 07:43 07/21/18 07:42 PT 14.0 SECONDS (9.7-12.2) H 07/14/18 16:22 INR 1.3 07/14/18 16:22 APTT 32 SECONDS (21-34) 07/14/18 16:22 - Constitutional Appears: Non-toxic, No Acute Distress - Head Exam Head Exam: ATRAUMATIC, NORMAL INSPECTION, NORMOCEPHALIC - Eye Exam Eye Exam: EOMI, Normal appearance - ENT Exam ENT Exam: Mucous Membranes Moist, Normal Exam - Neck Exam Neck Exam: Normal Inspection - Respiratory Exam Respiratory Exam: Accessory Muscle Use, Rales, NORMAL BREATHING PATTERN. absent: Respiratory Distress - Cardiovascular Exam Cardiovascular Exam: REGULAR RHYTHM, +S1, +S2 - GI/Abdominal Exam GI & Abdominal Exam: Soft. absent: Tenderness - Extremities Exam Extremities Exam: absent: Calf Tenderness, Normal Inspection (stasis dermatitis B/L LE), Pedal Edema - Neurological Exam Neurological Exam: Alert, Awake, Normal Gait, Oriented x3 - Psychiatric Exam Psychiatric exam: Normal Affect, Normal Mood - Skin Skin Exam: Dry, Intact, Normal Color, Warm Assessment and Plan - Assessment and Plan (Free Text) Assessment: 3 year old male admitted for evaluation and treatment of suspected interstitial lung disease. Plan: Suspected ILD -f/u pathology -bronchial cxs positive for Ramonita -duonebs, guaifenesan/dextromethophan, pulmicort, solu-medrol, -pain control prn, ultram, ibuprofen, acetaminophen -IV Abx/Antifungals, azithromycin, micafungin, merem, vanco Ramonita -micafungin DM2 -ISS -accuchecks achs Diarrhea -resolved -c.diff negative Ppx -SCD contraindicated in PVD -DVT ppx, heparin 5000 sc q12 -GI ppx, protonix -encourage OOB to chair, ambulation Discussed with Dr. Wellington -Irasema Gibson, PGY-1 <David Wellington - Last Filed: 07/21/18 15:20> Objective - Vital Signs/Intake and Output Vital Signs (last 24 hours): Temp Pulse Resp BP Pulse Ox 97.7 F 88 21 137/85 98 07/21/18 08:01 07/21/18 08:01 07/21/18 08:01 07/21/18 08:01 07/21/18 08:01 - Medications Medications: Current Medications Acetaminophen (Tylenol 325mg Tab) 650 mg PO Q6 PRN PRN Reason: Pain, Mild (1-3) Last Admin: 07/09/18 12:03 Dose: 650 mg Albuterol/Ipratropium (Duoneb 3 Mg/0.5 Mg (3 Ml) Ud) 3 ml INH RQ4 [facility] Last Admin: 07/21/18 11:25 Dose: 3 ml Budesonide (Pulmicort Respules) 0.5 mg INH RQ12 [facility] Last Admin: 07/21/18 07:40 Dose: 0.5 mg Dextrose (Dextrose 50% Inj) 0 ml IV STAT PRN; Protocol PRN Reason: Hypoglycemia Protocol Dextrose (Glutose 15) 0 gm PO ONCE PRN; Protocol PRN Reason: Hypoglycemia Protocol Glucagon (Glucagen Diagnostic Kit) 0 mg IM STAT PRN; Protocol PRN Reason: Hypoglycemia Protocol Guaifenesin/Dextromethorphan (Robitussin Dm) 5 ml PO Q4H PRN PRN Reason: Cough Last Admin: 07/18/18 02:19 Dose: 5 ml Heparin Sodium (Porcine) (Heparin) 5,000 units SC Q12 [facility] Last Admin: 07/21/18 10:20 Dose: 5,000 units Azithromycin 500 mg/ Sodium (Chloride) 250 mls @ 250 mls/hr IVPB DAILY [facility]; Protocol Last Admin: 07/21/18 10:21 Dose: 250 mls/hr Meropenem 1 gm/ Sodium (Chloride) 100 mls @ 100 mls/hr IVPB Q8H [facility]; Protocol Last Admin: 07/21/18 12:12 Dose: 100 mls/hr Micafungin Sodium 100 mg/ (Sodium Chloride) 100 mls @ 100 mls/hr IV Q24H [facility]; Protocol Last Admin: 07/21/18 13:56 Dose: 100 mls/hr Vancomycin HCl 1 gm/ Sodium (Chloride) 250 mls @ 166.7 mls/hr IVPB Q24H [facility]; Protocol Last Admin: 07/20/18 15:40 Dose: 166.7 mls/hr Ibuprofen (Motrin Tab) 600 mg PO TID PRN PRN Reason: Pain, moderate (4-7) Last Admin: 07/12/18 17:15 Dose: 600 mg Insulin Human Regular (Novolin R) 0 unit SC ACHS [facility]; Protocol Last Admin: 07/21/18 12:26 Dose: 8 units Methylprednisolone (Solu-Medrol) 40 mg IVP Q6 [facility] Multivitamins (Hexavitamin) 1 tab PO DAILY [facility] Last Admin: 07/21/18 10:19 Dose: 1 tab Pantoprazole Sodium (Protonix Ec Tab) 40 mg PO DAILY [facility] Last Admin: 07/21/18 10:19 Dose: 40 mg Tramadol HCl (Ultram) 25 mg PO TID PRN PRN Reason: Pain, severe (8-10) Last Admin: 07/14/18 08:29 Dose: 25 mg - Labs Labs: 07/21/18 07:43 07/21/18 07:42 PT 14.0 SECONDS (9.7-12.2) H 07/14/18 16:22 INR 1.3 07/14/18 16:22 APTT 32 SECONDS (21-34) 07/14/18 16:22 Attending/Attestation - Attestation I have personally seen and examined this patient.: Yes I have fully participated in the care of the patient.: Yes I have reviewed all pertinent clinical information, including history, physical exam and plan: Yes Notes (Text): 07/21/18 15:18 Medical attending: Patient was seen and examined by me. Agree with the above note by the resident The patient was not in any acute distress when I came and saw him. However PT was working with him and we watched his SpO2 and the numbers were in the 85 range and slowly came up to 90 only after he sat down - this was on 4 L of oxygen. We will try to see how he does without Bipap at night. David Wellington
[2018-07-21 09:33] LABS: LYMPHOCYTE 1 % (20-40); MONOCYTE 1 % (0-10); NEUTROPHIL 98 % (50-75); PLATELET ESTIMATE NORMAL (NORMAL); TOTAL CELLS COUNTED 100
[2018-07-21] MEDS: Pantoprazole 40 mg EC Tab PO SCH (10:19)
[2018-07-21] MEDS: Multiple Vitamins Tab PO SCH (10:19)
[2018-07-21] MEDS: Azithromycin 500 MG in Sodium Chloride 0.9% 250 ML IVPB SCH (10:21)
--- NOTE | 2018-07-21 12:07 | CP.PCM.PN ---
Subjective - Date & Time of Evaluation Date of Evaluation: 07/21/18 Time of Evaluation: 07:00 - Subjective Subjective: slow progress on iv rx Objective - Vital Signs/Intake and Output Vital Signs (last 24 hours): Temp Pulse Resp BP Pulse Ox 97.7 F 88 21 137/85 98 07/21/18 08:01 07/21/18 08:01 07/21/18 08:01 07/21/18 08:01 07/21/18 08:01 - Medications Medications: Current Medications Acetaminophen (Tylenol 325mg Tab) 650 mg PO Q6 PRN PRN Reason: Pain, Mild (1-3) Last Admin: 07/09/18 12:03 Dose: 650 mg Albuterol/Ipratropium (Duoneb 3 Mg/0.5 Mg (3 Ml) Ud) 3 ml INH RQ4 [facility] Last Admin: 07/21/18 11:25 Dose: 3 ml Budesonide (Pulmicort Respules) 0.5 mg INH RQ12 [facility] Last Admin: 07/21/18 07:40 Dose: 0.5 mg Dextrose (Dextrose 50% Inj) 0 ml IV STAT PRN; Protocol PRN Reason: Hypoglycemia Protocol Dextrose (Glutose 15) 0 gm PO ONCE PRN; Protocol PRN Reason: Hypoglycemia Protocol Glucagon (Glucagen Diagnostic Kit) 0 mg IM STAT PRN; Protocol PRN Reason: Hypoglycemia Protocol Guaifenesin/Dextromethorphan (Robitussin Dm) 5 ml PO Q4H PRN PRN Reason: Cough Last Admin: 07/18/18 02:19 Dose: 5 ml Heparin Sodium (Porcine) (Heparin) 5,000 units SC Q12 [facility] Last Admin: 07/21/18 10:20 Dose: 5,000 units Azithromycin 500 mg/ Sodium (Chloride) 250 mls @ 250 mls/hr IVPB DAILY [facility]; Protocol Last Admin: 07/21/18 10:21 Dose: 250 mls/hr Meropenem 1 gm/ Sodium (Chloride) 100 mls @ 100 mls/hr IVPB Q8H [facility]; Protocol Last Admin: 07/21/18 05:00 Dose: 100 mls/hr Micafungin Sodium 100 mg/ (Sodium Chloride) 100 mls @ 100 mls/hr IV Q24H [facility]; Protocol Last Admin: 07/20/18 14:23 Dose: 100 mls/hr Vancomycin HCl 1 gm/ Sodium (Chloride) 250 mls @ 166.7 mls/hr IVPB Q24H [facility]; Protocol Last Admin: 07/20/18 15:40 Dose: 166.7 mls/hr Ibuprofen (Motrin Tab) 600 mg PO TID PRN PRN Reason: Pain, moderate (4-7) Last Admin: 07/12/18 17:15 Dose: 600 mg Insulin Human Regular (Novolin R) 0 unit SC ACHS [facility]; Protocol Last Admin: 07/21/18 08:20 Dose: 2 units Methylprednisolone (Solu-Medrol) 60 mg IVP Q6 [facility] Last Admin: 07/21/18 05:43 Dose: 60 mg Multivitamins (Hexavitamin) 1 tab PO DAILY [facility] Last Admin: 07/21/18 10:19 Dose: 1 tab Pantoprazole Sodium (Protonix Ec Tab) 40 mg PO DAILY [facility] Last Admin: 07/21/18 10:19 Dose: 40 mg Tramadol HCl (Ultram) 25 mg PO TID PRN PRN Reason: Pain, severe (8-10) Last Admin: 07/14/18 08:29 Dose: 25 mg - Labs Labs: 07/21/18 07:43 07/21/18 07:42 PT 14.0 SECONDS (9.7-12.2) H 07/14/18 16:22 INR 1.3 07/14/18 16:22 APTT 32 SECONDS (21-34) 07/14/18 16:22 - Constitutional Appears: Non-toxic, Cachectic, Chronically Ill - Head Exam Head Exam: NORMOCEPHALIC - Eye Exam Eye Exam: absent: Scleral icterus - ENT Exam ENT Exam: Mucous Membranes Dry - Neck Exam Neck Exam: absent: Lymphadenopathy - Respiratory Exam Respiratory Exam: Decreased Breath Sounds, Rhonchi - Cardiovascular Exam Cardiovascular Exam: REGULAR RHYTHM - GI/Abdominal Exam GI & Abdominal Exam: Distended Assessment and Plan (1) Chronic respiratory failure with hypoxia Status: Acute (2) Pulmonary fibrosis Status: Acute (3) Bronchiectasis Status: Acute
[2018-07-21] MEDS: Micafungin 100 MG in Sodium Chloride 0.9% 100 ML IV SCH (13:56)
--- NOTE | 2018-07-21 17:20 | CP.PCM.PN ---
Subjective - Date & Time of Evaluation Date of Evaluation: 07/21/18 Time of Evaluation: 11:20 - Subjective Subjective: Patient seen and examined at bedside, lying down comfortably. Afebrile and in no acute distress. Denies chest pain, fever/chills Reports ambulating well off O2 with PT during evening. Becomes SOB towards end Reports cough WBC 15.9 on 07/21/18 Bronchial cultures positive for Ramonita Pathology shows fibrosis of lung Continue Duoneb, Pulmicort, Solu-Medrol Objective - Vital Signs/Intake and Output Vital Signs (last 24 hours): Temp Pulse Resp BP Pulse Ox 97.8 F 90 20 131/83 99 07/21/18 15:49 07/21/18 15:49 07/21/18 15:49 07/21/18 15:49 07/21/18 15:49 - Medications Medications: Current Medications Acetaminophen (Tylenol 325mg Tab) 650 mg PO Q6 PRN PRN Reason: Pain, Mild (1-3) Last Admin: 07/09/18 12:03 Dose: 650 mg Albuterol/Ipratropium (Duoneb 3 Mg/0.5 Mg (3 Ml) Ud) 3 ml INH RQ4 [facility] Last Admin: 07/21/18 15:40 Dose: 3 ml Budesonide (Pulmicort Respules) 0.5 mg INH RQ12 [facility] Last Admin: 07/21/18 07:40 Dose: 0.5 mg Dextrose (Dextrose 50% Inj) 0 ml IV STAT PRN; Protocol PRN Reason: Hypoglycemia Protocol Dextrose (Glutose 15) 0 gm PO ONCE PRN; Protocol PRN Reason: Hypoglycemia Protocol Glucagon (Glucagen Diagnostic Kit) 0 mg IM STAT PRN; Protocol PRN Reason: Hypoglycemia Protocol Guaifenesin/Dextromethorphan (Robitussin Dm) 5 ml PO Q4H PRN PRN Reason: Cough Last Admin: 07/18/18 02:19 Dose: 5 ml Heparin Sodium (Porcine) (Heparin) 5,000 units SC Q12 [facility] Last Admin: 07/21/18 10:20 Dose: 5,000 units Azithromycin 500 mg/ Sodium (Chloride) 250 mls @ 250 mls/hr IVPB DAILY [facility]; Protocol Last Admin: 07/21/18 10:21 Dose: 250 mls/hr Meropenem 1 gm/ Sodium (Chloride) 100 mls @ 100 mls/hr IVPB Q8H [facility]; Protocol Last Admin: 07/21/18 12:12 Dose: 100 mls/hr Micafungin Sodium 100 mg/ (Sodium Chloride) 100 mls @ 100 mls/hr IV Q24H [facility]; Protocol Last Admin: 07/21/18 13:56 Dose: 100 mls/hr Vancomycin HCl 1 gm/ Sodium (Chloride) 250 mls @ 166.7 mls/hr IVPB Q24H [facility]; Protocol Last Admin: 07/20/18 15:40 Dose: 166.7 mls/hr Ibuprofen (Motrin Tab) 600 mg PO TID PRN PRN Reason: Pain, moderate (4-7) Last Admin: 07/12/18 17:15 Dose: 600 mg Insulin Human Regular (Novolin R) 0 unit SC ACHS [facility]; Protocol Last Admin: 07/21/18 12:26 Dose: 8 units Methylprednisolone (Solu-Medrol) 40 mg IVP Q6 [facility] Multivitamins (Hexavitamin) 1 tab PO DAILY [facility] Last Admin: 07/21/18 10:19 Dose: 1 tab Pantoprazole Sodium (Protonix Ec Tab) 40 mg PO DAILY [facility] Last Admin: 07/21/18 10:19 Dose: 40 mg Tramadol HCl (Ultram) 25 mg PO TID PRN PRN Reason: Pain, severe (8-10) Last Admin: 07/14/18 08:29 Dose: 25 mg - Labs Labs: 07/21/18 07:43 07/21/18 07:42 PT 14.0 SECONDS (9.7-12.2) H 07/14/18 16:22 INR 1.3 07/14/18 16:22 APTT 32 SECONDS (21-34) 07/14/18 16:22 - Head Exam Head Exam: ATRAUMATIC, NORMOCEPHALIC - ENT Exam ENT Exam: Mucous Membranes Moist - Neck Exam Neck Exam: Normal Inspection - Respiratory Exam Respiratory Exam: Rales - Cardiovascular Exam Cardiovascular Exam: REGULAR RHYTHM - GI/Abdominal Exam GI & Abdominal Exam: Soft, Normal Bowel Sounds - Extremities Exam Extremities Exam: Full ROM, Normal Inspection Assessment and Plan (1) Pulmonary fibrosis Assessment & Plan: Consider open lung biopsy Continue antibiotics, IV steroids and Protonix Status: Acute (2) Chronic respiratory failure with hypoxia Status: Acute
[2018-07-22] MEDS: Albuterol-Ipratrop 3 mg / 0.5 (3 ml) UD INH SCH ×6 (00:23→19:30)
[2018-07-22] MEDS: Meropenem 1 GM in Sodium Chloride 0.9% 100 ML IVPB SCH ×3 (05:15→21:58)
[2018-07-22] MEDS: MethylPREDNISolone 40 mg Vial IVP SCH ×3 (05:52→17:44)
[2018-07-22 06:32] LABS: BASO % 0.1 % (0.0-2.0); HEMOGLOBIN 12.8 g/dL (12.0-18.0); LYMPH # 0.2 K/uL (1.0-4.3); LYMPH % 1.7 % (20.0-40.0); MEAN CELL VOLUME 98.7 fL (80.0-94.0); MEAN CORPUSCULAR HEMOGLOBIN 32.5 pg (27.0-31.0); MEAN PLATELET VOLUME 9.1 fL (7.2-11.7); MONO # 0.4 K/uL (0.0-0.8); NEUT # 13.7 K/uL (1.8-7.0); NEUT % 95.2 % (50.0-75.0); NRBC % 0.1 % (0.0-2.0); PLATELET COUNT 183 K/uL (130-400); RBC 3.94 Mil/uL (4.40-5.90); RED CELL DISTRIBUTION WIDTH 15.4 % (11.5-14.5); WHITE BLOOD COUNT 14.4 K/uL (4.8-10.8)
[2018-07-22 07:06] LABS: ALB/GLOB RATIO 0.8 (1.0-2.1); ALBUMIN 2.5 g/dL (3.5-5.0); ALT/SGPT 25 U/L (21-72); AST/SGOT 24 U/L (17-59); BLOOD UREA NITROGEN 24 mg/dL (9-20); CALCIUM 7.8 mg/dl (8.6-10.4); GFR NON-AFRICAN AMERICAN > 60
--- NOTE | 2018-07-22 07:09 | CP.PCM.PN ---
<Efrain Ybarra - Last Filed: 07/22/18 14:33> Subjective - Date & Time of Evaluation Date of Evaluation: 07/22/18 Time of Evaluation: 08:20 - Subjective Subjective: PGY1 Medicine Progress note for hospitalist Dr. Wellington. patient seen and examined at bedside. No acute events reported overnight. Patient stated he required to bipap overnight as he felt sob. Additionally patient states he needs the NRB during the day to help with his breathing. Patient saturated about 85s while walking yesterday and 90s while resting. Patient reports no other complaints. Patient denies chest pain, abdominal pain, nausea, vomiting, headaches, vision changes. Objective - Vital Signs/Intake and Output Vital Signs (last 24 hours): Temp Pulse Resp BP Pulse Ox 97.3 F L 86 20 139/85 98 07/21/18 23:07 07/22/18 04:00 07/21/18 23:07 07/21/18 23:07 07/21/18 23:07 Intake and Output: 07/22/18 07/22/18 06:59 18:59 Output Total 300 Balance -300 - Medications Medications: Current Medications Acetaminophen (Tylenol 325mg Tab) 650 mg PO Q6 PRN PRN Reason: Pain, Mild (1-3) Last Admin: 07/09/18 12:03 Dose: 650 mg Albuterol/Ipratropium (Duoneb 3 Mg/0.5 Mg (3 Ml) Ud) 3 ml INH RQ4 [facility] Last Admin: 07/22/18 04:01 Dose: 3 ml Budesonide (Pulmicort Respules) 0.5 mg INH RQ12 [facility] Last Admin: 07/21/18 19:20 Dose: 0.5 mg Dextrose (Dextrose 50% Inj) 0 ml IV STAT PRN; Protocol PRN Reason: Hypoglycemia Protocol Dextrose (Glutose 15) 0 gm PO ONCE PRN; Protocol PRN Reason: Hypoglycemia Protocol Glucagon (Glucagen Diagnostic Kit) 0 mg IM STAT PRN; Protocol PRN Reason: Hypoglycemia Protocol Guaifenesin/Dextromethorphan (Robitussin Dm) 5 ml PO Q4H PRN PRN Reason: Cough Last Admin: 07/18/18 02:19 Dose: 5 ml Heparin Sodium (Porcine) (Heparin) 5,000 units SC Q12 [facility] Last Admin: 07/21/18 22:07 Dose: 5,000 units Azithromycin 500 mg/ Sodium (Chloride) 250 mls @ 250 mls/hr IVPB DAILY [facility]; Protocol Last Admin: 07/21/18 10:21 Dose: 250 mls/hr Meropenem 1 gm/ Sodium (Chloride) 100 mls @ 100 mls/hr IVPB Q8H [facility]; Protocol Last Admin: 07/21/18 22:07 Dose: 100 mls/hr Micafungin Sodium 100 mg/ (Sodium Chloride) 100 mls @ 100 mls/hr IV Q24H [facility]; Protocol Last Admin: 07/21/18 13:56 Dose: 100 mls/hr Vancomycin HCl 1 gm/ Sodium (Chloride) 250 mls @ 166.7 mls/hr IVPB Q24H [facility]; Protocol Last Admin: 07/21/18 16:00 Dose: 166.7 mls/hr Ibuprofen (Motrin Tab) 600 mg PO TID PRN PRN Reason: Pain, moderate (4-7) Last Admin: 07/12/18 17:15 Dose: 600 mg Insulin Human Regular (Novolin R) 0 unit SC ACHS [facility]; Protocol Last Admin: 07/21/18 22:08 Dose: Not Given Methylprednisolone (Solu-Medrol) 40 mg IVP Q6 [facility] Last Admin: 07/22/18 05:52 Dose: 40 mg Multivitamins (Hexavitamin) 1 tab PO DAILY [facility] Last Admin: 07/21/18 10:19 Dose: 1 tab Pantoprazole Sodium (Protonix Ec Tab) 40 mg PO DAILY [facility] Last Admin: 07/21/18 10:19 Dose: 40 mg Tramadol HCl (Ultram) 25 mg PO TID PRN PRN Reason: Pain, severe (8-10) Last Admin: 07/14/18 08:29 Dose: 25 mg - Labs Labs: 07/22/18 06:25 07/22/18 06:25 PT 14.0 SECONDS (9.7-12.2) H 07/14/18 16:22 INR 1.3 07/14/18 16:22 APTT 32 SECONDS (21-34) 07/14/18 16:22 - Constitutional Appears: Non-toxic - Head Exam Head Exam: NORMAL INSPECTION - Eye Exam Eye Exam: Normal appearance Pupil Exam: NORMAL ACCOMODATION - ENT Exam ENT Exam: Mucous Membranes Moist - Respiratory Exam Respiratory Exam: Accessory Muscle Use, Rales Additional comments: Rales b/l Lower lung daniel greater than upper - Cardiovascular Exam Cardiovascular Exam: +S1, +S2. absent: Murmur - GI/Abdominal Exam GI & Abdominal Exam: Soft, Normal Bowel Sounds. absent: Firm, Guarding, Rigid - Extremities Exam Additional comments: finger clubbing - Back Exam Back Exam: absent: CVA tenderness (L), CVA tenderness (R) - Neurological Exam Neurological Exam: Alert, Awake, Oriented x3 - Psychiatric Exam Psychiatric exam: Normal Affect, Normal Mood - Skin Skin Exam: Warm Additional comments: hyperpigmentation consistent w/ PVD Assessment and Plan - Assessment and Plan (Free Text) Assessment: 63 year old male admitted for evaluation and treatment of SOB 2/2 to pulmonary fibrosis/interstitial lung disease Suspected Interstitial pulmonary fibrosis -Pulm consult, Dr. Vera -ID consult, Dr. Ritter -s/p bronchoscopy w/ bx and scrapings - limited biopsy, interstitial fibrosis - bronch culture - yeast - fluconazole 200 daily -BiPAP -albuterol, pulmicort, methylprednisolone 60mg IVP q6, robitussin - vancomycin 1g Q24, micafungin 100 mg Q24h, meropenem 1gm Q8h, azithromycin 500 mg Qdaily -pain control prn Tylenol, Ibuprofen, tramadol Leukocytosis - WBCs in 13s to 16s - likely 2/2 to steroid use Prediabetes - elevated BS - Likely 2/2 to steroid use - ISS acq - hypoglycemia protocol Electrolyte imbalance - hyperphos/hypermag - monitor and correct accordingly Pancreatic lesion - pancreatic protocol CT: lesion consistent with pancreatic tissue; no further workup - GI consult, Dr. Clifford Ppx -SCD contraindicated due to PVD -protonix 40mg IV qd -heparin 5000U sc q12 <Wellington,Peter H - Last Filed: 07/22/18 16:59> Objective - Vital Signs/Intake and Output Vital Signs (last 24 hours): Temp Pulse Resp BP Pulse Ox 97 F L 102 H 20 143/86 97 07/22/18 15:00 07/22/18 15:00 07/22/18 15:00 07/22/18 15:00 07/22/18 15:00 Intake and Output: 07/22/18 07/22/18 06:59 18:59 Output Total 300 Balance -300 - Medications Medications: Current Medications Acetaminophen (Tylenol 325mg Tab) 650 mg PO Q6 PRN PRN Reason: Pain, Mild (1-3) Last Admin: 07/09/18 12:03 Dose: 650 mg Albuterol/Ipratropium (Duoneb 3 Mg/0.5 Mg (3 Ml) Ud) 3 ml INH RQ4 [facility] Last Admin: 07/22/18 11:45 Dose: 3 ml Budesonide (Pulmicort Respules) 0.5 mg INH RQ12 [facility] Last Admin: 07/22/18 07:45 Dose: 0.5 mg Dextrose (Dextrose 50% Inj) 0 ml IV STAT PRN; Protocol PRN Reason: Hypoglycemia Protocol Dextrose (Glutose 15) 0 gm PO ONCE PRN; Protocol PRN Reason: Hypoglycemia Protocol Glucagon (Glucagen Diagnostic Kit) 0 mg IM STAT PRN; Protocol PRN Reason: Hypoglycemia Protocol Guaifenesin/Dextromethorphan (Robitussin Dm) 5 ml PO Q4H PRN PRN Reason: Cough Last Admin: 07/18/18 02:19 Dose: 5 ml Heparin Sodium (Porcine) (Heparin) 5,000 units SC Q12 [facility] Last Admin: 07/22/18 09:28 Dose: 5,000 units Azithromycin 500 mg/ Sodium (Chloride) 250 mls @ 250 mls/hr IVPB DAILY [facility]; Protocol Last Admin: 07/22/18 09:28 Dose: 250 mls/hr Meropenem 1 gm/ Sodium (Chloride) 100 mls @ 100 mls/hr IVPB Q8H [facility]; Protocol Last Admin: 07/22/18 12:06 Dose: 100 mls/hr Micafungin Sodium 100 mg/ (Sodium Chloride) 100 mls @ 100 mls/hr IV Q24H [facility]; Protocol Last Admin: 07/22/18 13:43 Dose: 100 mls/hr Vancomycin HCl 1 gm/ Sodium (Chloride) 250 mls @ 166.7 mls/hr IVPB Q24H [facility]; Protocol Last Admin: 07/22/18 15:00 Dose: 166.7 mls/hr Ibuprofen (Motrin Tab) 600 mg PO TID PRN PRN Reason: Pain, moderate (4-7) Last Admin: 07/12/18 17:15 Dose: 600 mg Insulin Human Regular (Novolin R) 0 unit SC ACHS [facility]; Protocol Last Admin: 07/22/18 12:29 Dose: 2 units Methylprednisolone (Solu-Medrol) 40 mg IVP Q6 [facility] Last Admin: 07/22/18 12:06 Dose: 40 mg Multivitamins (Hexavitamin) 1 tab PO DAILY [facility] Last Admin: 07/22/18 09:28 Dose: 1 tab Pantoprazole Sodium (Protonix Ec Tab) 40 mg PO DAILY [facility] Last Admin: 07/22/18 09:28 Dose: 40 mg Tramadol HCl (Ultram) 25 mg PO TID PRN PRN Reason: Pain, severe (8-10) Last Admin: 07/14/18 08:29 Dose: 25 mg - Labs Labs: 07/22/18 06:25 07/22/18 06:25 PT 14.0 SECONDS (9.7-12.2) H 07/14/18 16:22 INR 1.3 07/14/18 16:22 APTT 32 SECONDS (21-34) 07/14/18 16:22 Attending/Attestation - Attestation I have personally seen and examined this patient.: Yes I have fully participated in the care of the patient.: Yes I have reviewed all pertinent clinical information, including history, physical exam and plan: Yes Notes (Text): Medical attending: Patient was seen and examined by me. Agree with the above note by the resident. The patient was not in any acute distress. Per disucssion with clinical unit educator the patient's biopsy during bronchoscopy did not help with diagnosis and we need further sampling. We are pending CT surgery evaluation for further tissue sampling. Overnight the patient reports that he needed to be on the Bipap at night. We had tried to see if the patient could rest at night without it, but he said this was not possible. David Wellington
[2018-07-22] MEDS: Budesonide 0.5 mg/2 ml Inhal Susp UD INH SCH ×2 (07:45→19:20)
[2018-07-22 08:17] LABS: BANDS 1 % (0-2); LYMPHOCYTE 1 % (20-40); MONOCYTE 1 % (0-10); NEUTROPHIL 97 % (50-75); PLATELET ESTIMATE NORMAL (NORMAL); TOTAL CELLS COUNTED 100
[2018-07-22 08:19] LABS: ANISOCYTOSIS SLIGHT; HYPOCHROMIC SLIGHT; POLYCHROMIC SLIGHT; TARGET CELLS SLIGHT
[2018-07-22] MEDS: (Novolin R) Insulin Human Regular 100 units/ml vial SC SCH ×4 (08:26→22:03)
[2018-07-22] MEDS: Azithromycin 500 MG in Sodium Chloride 0.9% 250 ML IVPB SCH (09:28)
[2018-07-22] MEDS: Multiple Vitamins Tab PO SCH (09:28)
[2018-07-22] MEDS: Pantoprazole 40 mg EC Tab PO SCH (09:28)
[2018-07-22] MEDS: Micafungin 100 MG in Sodium Chloride 0.9% 100 ML IV SCH (13:43)
--- NOTE | 2018-07-22 13:56 | CP.PCM.CON ---
History of Present Illness - History of Present Illness History of Present Illness: Cardiothoracic Surgery Consult note. Dr. Oh 63yo M with PMHx of PUD here for evaluation of SOB. 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 Currently, he states that he has been having progressive shortness of breath for the past month. Has a persistent cough over the same duration, productive nicolette ar/white sputum. Denies any fevers or chills. No Abd pain. No urinary complaints. PMHx: Peptic ulcer disease s/p laparotomy PSHx: Ex Lap for PUD bleeding control Family Hx: denies Social Hx: 1/2ppd for past 40 years, quit 1 month ago. Reports prior extensive ETOH use. Denies illicit drugs. Homeless, lives in a garage NKDA Review of Systems - Review of Systems All systems: reviewed and no additional remarkable complaints except - Constitutional Constitutional: absent: Chills, Fever - EENT Nose/Mouth/Throat: absent: Epistaxis, Nasal Congestion - Cardiovascular Cardiovascular: Dyspnea, Dyspnea on Exertion. absent: Chest Pain - Respiratory Respiratory: Cough, Dyspnea - Gastrointestinal Gastrointestinal: absent: Abdominal Pain, Diarrhea, Nausea, Vomiting - Genitourinary Genitourinary: absent: Dysuria - Musculoskeletal Musculoskeletal: absent: Back Pain, Numbness - Neurological Neurological: absent: Headaches, Syncope, Weakness Past Patient History - Past Medical History & Family History Past Family History: Reviewed and not pertinent - Past Social History Smoking Status: Former Smoker - CARDIAC Hx Hypotension: Yes - MUSCULOSKELETAL/RHEUMATOLOGICAL Hx Falls: Yes - PSYCHIATRIC Hx Substance Use: No - SURGICAL HISTORY Hx Surgeries: Yes Other/Comment: peptic ulcer surgery - ANESTHESIA Hx Anesthesia: No Hx Anesthesia Reactions: No Meds Allergies/Adverse Reactions: Allergies Allergy/AdvReac Type Severity Reaction Status Date / Time No Known Allergies Allergy Unverified 07/08/18 15:44 - Medications Medications: Current Medications Acetaminophen (Tylenol 325mg Tab) 650 mg PO Q6 PRN PRN Reason: Pain, Mild (1-3) Last Admin: 07/09/18 12:03 Dose: 650 mg Albuterol/Ipratropium (Duoneb 3 Mg/0.5 Mg (3 Ml) Ud) 3 ml INH RQ4 [facility] Last Admin: 07/22/18 07:45 Dose: 3 ml Budesonide (Pulmicort Respules) 0.5 mg INH RQ12 [facility] Last Admin: 07/22/18 07:45 Dose: 0.5 mg Dextrose (Dextrose 50% Inj) 0 ml IV STAT PRN; Protocol PRN Reason: Hypoglycemia Protocol Dextrose (Glutose 15) 0 gm PO ONCE PRN; Protocol PRN Reason: Hypoglycemia Protocol Glucagon (Glucagen Diagnostic Kit) 0 mg IM STAT PRN; Protocol PRN Reason: Hypoglycemia Protocol Guaifenesin/Dextromethorphan (Robitussin Dm) 5 ml PO Q4H PRN PRN Reason: Cough Last Admin: 07/18/18 02:19 Dose: 5 ml Heparin Sodium (Porcine) (Heparin) 5,000 units SC Q12 [facility] Last Admin: 07/22/18 09:28 Dose: 5,000 units Azithromycin 500 mg/ Sodium (Chloride) 250 mls @ 250 mls/hr IVPB DAILY [facility]; Protocol Last Admin: 07/22/18 09:28 Dose: 250 mls/hr Meropenem 1 gm/ Sodium (Chloride) 100 mls @ 100 mls/hr IVPB Q8H [facility]; Protocol Last Admin: 07/22/18 12:06 Dose: 100 mls/hr Micafungin Sodium 100 mg/ (Sodium Chloride) 100 mls @ 100 mls/hr IV Q24H [facility]; Protocol Last Admin: 07/22/18 13:43 Dose: 100 mls/hr Vancomycin HCl 1 gm/ Sodium (Chloride) 250 mls @ 166.7 mls/hr IVPB Q24H [facility]; Protocol Last Admin: 07/21/18 16:00 Dose: 166.7 mls/hr Ibuprofen (Motrin Tab) 600 mg PO TID PRN PRN Reason: Pain, moderate (4-7) Last Admin: 07/12/18 17:15 Dose: 600 mg Insulin Human Regular (Novolin R) 0 unit SC ACHS [facility]; Protocol Last Admin: 07/22/18 12:29 Dose: 2 units Methylprednisolone (Solu-Medrol) 40 mg IVP Q6 [facility] Last Admin: 07/22/18 12:06 Dose: 40 mg Multivitamins (Hexavitamin) 1 tab PO DAILY [facility] Last Admin: 07/22/18 09:28 Dose: 1 tab Pantoprazole Sodium (Protonix Ec Tab) 40 mg PO DAILY [facility] Last Admin: 07/22/18 09:28 Dose: 40 mg Tramadol HCl (Ultram) 25 mg PO TID PRN PRN Reason: Pain, severe (8-10) Last Admin: 07/14/18 08:29 Dose: 25 mg Physical Exam - Constitutional Appears: Non-toxic - Head Exam Head Exam: ATRAUMATIC, NORMAL INSPECTION, NORMOCEPHALIC - Eye Exam Eye Exam: EOMI, Normal appearance. absent: Scleral icterus - ENT Exam ENT Exam: Mucous Membranes Moist - Respiratory Exam Additional comments: Accessory muscle use. Easily Short of breath during patient interview and exam - Cardiovascular Exam Cardiovascular Exam: absent: JVD - GI/Abdominal Exam GI & Abdominal Exam: Soft. absent: Distended, Guarding, Tenderness - Extremities Exam Extremities exam: Positive for: normal inspection. Negative for: calf tenderness - Neurological Exam Neurological exam: Alert, Normal Gait, Oriented x3 - Psychiatric Exam Psychiatric exam: Normal Affect, Normal Mood - Skin Skin Exam: Dry, Intact, Normal Color, Warm Results - Vital Signs Recent Vital Signs: Last Vital Signs Temp 97.9 F 07/22/18 08:02 Pulse 92 H 07/22/18 08:50 Resp 20 07/22/18 08:02 BP 139/86 07/22/18 08:02 Pulse Ox 98 07/22/18 08:02 - Labs Result Diagrams: 07/22/18 06:25 07/22/18 06:25 Labs: Laboratory Results - last 24 hr 07/21/18 07/21/18 07/22/18 16:03 21:20 06:05 WBC RBC Hgb Hct MCV MCH MCHC RDW Plt Count MPV Neut % (Auto) Lymph % (Auto) Terry % (Auto) Eos % (Auto) Baso % (Auto) Neut # (Auto) Lymph # (Auto) Terry # (Auto) Eos # (Auto) Baso # (Auto) Neutrophils % (Manual) Band Neutrophils % Lymphocytes % (Manual) Monocytes % (Manual) Platelet Estimate Polychromasia Hypochromasia (manual) Anisocytosis (manual) Target Cells Sodium Potassium Chloride Carbon Dioxide Anion Gap BUN Creatinine Est GFR ( Amer) Est GFR (Non-Af Amer) POC Glucose (mg/dL) 201 H 293 H 206 H Random Glucose Calcium Total Bilirubin AST ALT Alkaline Phosphatase Total Protein Albumin Globulin Albumin/Globulin Ratio 07/22/18 07/22/18 07/22/18 06:25 06:25 11:52 WBC 14.4 H RBC 3.94 L Hgb 12.8 Hct 38.8 MCV 98.7 H MCH 32.5 H MCHC 33.0 RDW 15.4 H Plt Count 183 MPV 9.1 Neut % (Auto) 95.2 H Lymph % (Auto) 1.7 L Terry % (Auto) 3.0 Eos % (Auto) 0.0 Baso % (Auto) 0.1 Neut # (Auto) 13.7 H Lymph # (Auto) 0.2 L Terry # (Auto) 0.4 Eos # (Auto) 0.0 Baso # (Auto) 0.0 Neutrophils % (Manual) 97 H Band Neutrophils % 1 Lymphocytes % (Manual) 1 L Monocytes % (Manual) 1 Platelet Estimate Normal Polychromasia Slight Hypochromasia (manual) Slight Anisocytosis (manual) Slight Target Cells Slight Sodium 134 Potassium 4.5 Chloride 94 L Carbon Dioxide 37 H Anion Gap 8 L BUN 24 H Creatinine 0.6 L Est GFR ( Amer) > 60 Est GFR (Non-Af Amer) > 60 POC Glucose (mg/dL) 164 H Random Glucose 233 H Calcium 7.8 L Total Bilirubin 0.3 AST 24 ALT 25 Alkaline Phosphatase 48 Total Protein 5.9 L Albumin 2.5 L Globulin 3.3 Albumin/Globulin Ratio 0.8 L Assessment & Plan - Assessment and Plan (Free Text) Assessment: 63yo M with pulmonary fibrosis. Cardiothoracic surgery consulted for possible wedge biopsy Plan: - Please obtain baseline Pulmonary function tests - optimize for OR - Will plan for lingular biopsy on Friday, 07/28 Further recs as per Dr. Adriano Ferrari PGY2 surgery
--- NOTE | 2018-07-22 18:27 | CP.PCM.PN ---
Subjective - Date & Time of Evaluation Date of Evaluation: 07/22/18 Time of Evaluation: 09:00 - Subjective Subjective: afeb alert NAD Objective - Vital Signs/Intake and Output Vital Signs (last 24 hours): Temp Pulse Resp BP Pulse Ox 97 F L 102 H 20 143/86 97 07/22/18 15:00 07/22/18 15:00 07/22/18 15:00 07/22/18 15:00 07/22/18 15:00 Intake and Output: 07/22/18 07/22/18 06:59 18:59 Output Total 300 Balance -300 - Medications Medications: Current Medications Acetaminophen (Tylenol 325mg Tab) 650 mg PO Q6 PRN PRN Reason: Pain, Mild (1-3) Last Admin: 07/09/18 12:03 Dose: 650 mg Albuterol/Ipratropium (Duoneb 3 Mg/0.5 Mg (3 Ml) Ud) 3 ml INH RQ4 [facility] Last Admin: 07/22/18 11:45 Dose: 3 ml Budesonide (Pulmicort Respules) 0.5 mg INH RQ12 [facility] Last Admin: 07/22/18 07:45 Dose: 0.5 mg Dextrose (Dextrose 50% Inj) 0 ml IV STAT PRN; Protocol PRN Reason: Hypoglycemia Protocol Dextrose (Glutose 15) 0 gm PO ONCE PRN; Protocol PRN Reason: Hypoglycemia Protocol Glucagon (Glucagen Diagnostic Kit) 0 mg IM STAT PRN; Protocol PRN Reason: Hypoglycemia Protocol Guaifenesin/Dextromethorphan (Robitussin Dm) 5 ml PO Q4H PRN PRN Reason: Cough Last Admin: 07/18/18 02:19 Dose: 5 ml Heparin Sodium (Porcine) (Heparin) 5,000 units SC Q12 [facility] Last Admin: 07/22/18 09:28 Dose: 5,000 units Azithromycin 500 mg/ Sodium (Chloride) 250 mls @ 250 mls/hr IVPB DAILY [facility]; Protocol Last Admin: 07/22/18 09:28 Dose: 250 mls/hr Meropenem 1 gm/ Sodium (Chloride) 100 mls @ 100 mls/hr IVPB Q8H [facility]; Protocol Last Admin: 07/22/18 12:06 Dose: 100 mls/hr Micafungin Sodium 100 mg/ (Sodium Chloride) 100 mls @ 100 mls/hr IV Q24H [facility]; Protocol Last Admin: 07/22/18 13:43 Dose: 100 mls/hr Vancomycin HCl 1 gm/ Sodium (Chloride) 250 mls @ 166.7 mls/hr IVPB Q24H [facility]; Protocol Last Admin: 07/22/18 15:00 Dose: 166.7 mls/hr Ibuprofen (Motrin Tab) 600 mg PO TID PRN PRN Reason: Pain, moderate (4-7) Last Admin: 07/12/18 17:15 Dose: 600 mg Insulin Human Regular (Novolin R) 0 unit SC ACHS [facility]; Protocol Last Admin: 07/22/18 17:44 Dose: 2 units Methylprednisolone (Solu-Medrol) 40 mg IVP Q6 [facility] Last Admin: 07/22/18 17:44 Dose: 40 mg Multivitamins (Hexavitamin) 1 tab PO DAILY [facility] Last Admin: 07/22/18 09:28 Dose: 1 tab Pantoprazole Sodium (Protonix Ec Tab) 40 mg PO DAILY [facility] Last Admin: 07/22/18 09:28 Dose: 40 mg Tramadol HCl (Ultram) 25 mg PO TID PRN PRN Reason: Pain, severe (8-10) Last Admin: 07/14/18 08:29 Dose: 25 mg - Labs Labs: 07/22/18 06:25 07/22/18 06:25 PT 14.0 SECONDS (9.7-12.2) H 07/14/18 16:22 INR 1.3 07/14/18 16:22 APTT 32 SECONDS (21-34) 07/14/18 16:22 - Constitutional Appears: Non-toxic, Cachectic, Chronically Ill - Head Exam Head Exam: NORMOCEPHALIC - Eye Exam Eye Exam: absent: Scleral icterus - ENT Exam ENT Exam: Mucous Membranes Dry - Neck Exam Neck Exam: absent: Lymphadenopathy - Respiratory Exam Respiratory Exam: Decreased Breath Sounds - Cardiovascular Exam Cardiovascular Exam: REGULAR RHYTHM - GI/Abdominal Exam GI & Abdominal Exam: Distended, Soft Assessment and Plan (1) Chronic respiratory failure with hypoxia Status: Acute (2) Pulmonary fibrosis Status: Acute (3) Bronchiectasis Status: Acute
[2018-07-23] MEDS: Albuterol-Ipratrop 3 mg / 0.5 (3 ml) UD INH SCH ×6 (00:05→19:10)
[2018-07-23] MEDS: MethylPREDNISolone 40 mg Vial IVP SCH ×5 (00:52→23:39)
[2018-07-23] MEDS: Meropenem 1 GM in Sodium Chloride 0.9% 100 ML IVPB SCH ×3 (06:05→21:20)
--- NOTE | 2018-07-23 06:58 | CP.PCM.PN ---
<Irasema Gibson - Last Filed: 07/23/18 13:21> Subjective - Date & Time of Evaluation Date of Evaluation: 07/23/18 Time of Evaluation: 07:35 - Subjective Subjective: Patient examined at bedside, resting comfortable. Patient reports he is breathing well on non-rebreather. Pt reports he is ambulating eating well, urinating, having formed normal BMs. Reports SOB well controlled on current regimen. Denies chest pain, abd pain, nausea, diarrhea. Objective - Vital Signs/Intake and Output Vital Signs (last 24 hours): Temp Pulse Resp BP Pulse Ox 97.8 F 101 H 20 127/77 99 07/22/18 23:07 07/23/18 03:21 07/22/18 23:07 07/22/18 23:07 07/22/18 23:07 Intake and Output: 07/22/18 07/23/18 18:59 06:59 Output Total 650 Balance -650 - Medications Medications: Current Medications Acetaminophen (Tylenol 325mg Tab) 650 mg PO Q6 PRN PRN Reason: Pain, Mild (1-3) Last Admin: 07/09/18 12:03 Dose: 650 mg Albuterol/Ipratropium (Duoneb 3 Mg/0.5 Mg (3 Ml) Ud) 3 ml INH RQ4 [facility] Last Admin: 07/23/18 03:15 Dose: 3 ml Budesonide (Pulmicort Respules) 0.5 mg INH RQ12 [facility] Last Admin: 07/22/18 19:20 Dose: 0.5 mg Dextrose (Dextrose 50% Inj) 0 ml IV STAT PRN; Protocol PRN Reason: Hypoglycemia Protocol Dextrose (Glutose 15) 0 gm PO ONCE PRN; Protocol PRN Reason: Hypoglycemia Protocol Glucagon (Glucagen Diagnostic Kit) 0 mg IM STAT PRN; Protocol PRN Reason: Hypoglycemia Protocol Guaifenesin/Dextromethorphan (Robitussin Dm) 5 ml PO Q4H PRN PRN Reason: Cough Last Admin: 07/18/18 02:19 Dose: 5 ml Heparin Sodium (Porcine) (Heparin) 5,000 units SC Q12 [facility] Last Admin: 07/22/18 21:59 Dose: 5,000 units Azithromycin 500 mg/ Sodium (Chloride) 250 mls @ 250 mls/hr IVPB DAILY [facility]; Protocol Last Admin: 07/22/18 09:28 Dose: 250 mls/hr Meropenem 1 gm/ Sodium (Chloride) 100 mls @ 100 mls/hr IVPB Q8H [facility]; Protocol Last Admin: 07/23/18 06:05 Dose: 100 mls/hr Micafungin Sodium 100 mg/ (Sodium Chloride) 100 mls @ 100 mls/hr IV Q24H [facility]; Protocol Last Admin: 07/22/18 13:43 Dose: 100 mls/hr Vancomycin HCl 1 gm/ Sodium (Chloride) 250 mls @ 166.7 mls/hr IVPB Q24H [facility]; Protocol Last Admin: 07/22/18 15:00 Dose: 166.7 mls/hr Ibuprofen (Motrin Tab) 600 mg PO TID PRN PRN Reason: Pain, moderate (4-7) Last Admin: 07/12/18 17:15 Dose: 600 mg Insulin Human Regular (Novolin R) 0 unit SC ACHS [facility]; Protocol Last Admin: 07/22/18 22:03 Dose: Not Given Methylprednisolone (Solu-Medrol) 40 mg IVP Q6 [facility] Last Admin: 07/23/18 06:05 Dose: 40 mg Multivitamins (Hexavitamin) 1 tab PO DAILY [facility] Last Admin: 07/22/18 09:28 Dose: 1 tab Pantoprazole Sodium (Protonix Ec Tab) 40 mg PO DAILY [facility] Last Admin: 07/22/18 09:28 Dose: 40 mg Tramadol HCl (Ultram) 25 mg PO TID PRN PRN Reason: Pain, severe (8-10) Last Admin: 07/14/18 08:29 Dose: 25 mg - Labs Labs: 07/22/18 06:25 07/22/18 06:25 PT 14.0 SECONDS (9.7-12.2) H 07/14/18 16:22 INR 1.3 07/14/18 16:22 APTT 32 SECONDS (21-34) 07/14/18 16:22 - Constitutional Appears: Non-toxic, No Acute Distress - Head Exam Head Exam: ATRAUMATIC, NORMAL INSPECTION, NORMOCEPHALIC - Eye Exam Eye Exam: EOMI, Normal appearance - ENT Exam ENT Exam: Mucous Membranes Moist, Normal Exam - Neck Exam Neck Exam: Normal Inspection - Respiratory Exam Respiratory Exam: Accessory Muscle Use, Rales, NORMAL BREATHING PATTERN. absent: Respiratory Distress Additional comments: diffuse, B/L - Cardiovascular Exam Cardiovascular Exam: Tachycardia, REGULAR RHYTHM - GI/Abdominal Exam GI & Abdominal Exam: Soft. absent: Tenderness - Extremities Exam Extremities Exam: absent: Calf Tenderness, Normal Inspection (stasis dermatitis skin changes B/L LE), Pedal Edema - Neurological Exam Neurological Exam: Alert, Awake, Oriented x3 - Psychiatric Exam Psychiatric exam: Normal Affect, Normal Mood - Skin Skin Exam: Dry, Intact, Normal Color, Warm Assessment and Plan - Assessment and Plan (Free Text) Assessment: 63 year old male admitted with SOB 2/2 to pulmonary fibrosis/ILD Plan: Suspected ILD -bx pathology consistent with fibrosis -plan for lingula wedge bx with CT -bronchial cxs positive for Ramonita -duonebs, guaifenesan/dextromethophan, pulmicort, [id number] down from 60 to 40 q6 with good response, -pain control prn, ultram, ibuprofen, acetaminophen -IV Abx/Antifungals, azithromycin, micafungin, merem, vanco -Pulm consult Dr. Vera -CT consult Dr. Oh Ramonita -micafungin(07/20) DM2 -ISS -accuchecks achs Diarrhea -resolved -c.diff negative Ppx -SCD contraindicated in PVD -DVT ppx, heparin 5000 sc q12 -GI ppx, protonix -encourage OOB to chair, ambulation Discussed with Dr. Wellington -Irasema Gibson, PGY-1 <David Wellington - Last Filed: 07/23/18 17:06> Objective - Vital Signs/Intake and Output Vital Signs (last 24 hours): Temp Pulse Resp BP Pulse Ox 97.9 F 93 H 20 142/85 99 07/23/18 16:32 07/23/18 16:32 07/23/18 16:32 07/23/18 16:32 07/23/18 16:32 Intake and Output: 07/23/18 07/23/18 06:59 18:59 Output Total 650 Balance -650 - Medications Medications: Current Medications Acetaminophen (Tylenol 325mg Tab) 650 mg PO Q6 PRN PRN Reason: Pain, Mild (1-3) Last Admin: 07/09/18 12:03 Dose: 650 mg Albuterol/Ipratropium (Duoneb 3 Mg/0.5 Mg (3 Ml) Ud) 3 ml INH RQ4 [facility] Last Admin: 07/23/18 11:08 Dose: Not Given Budesonide (Pulmicort Respules) 0.5 mg INH RQ12 [facility] Last Admin: 07/23/18 07:37 Dose: Not Given Dextrose (Dextrose 50% Inj) 0 ml IV STAT PRN; Protocol PRN Reason: Hypoglycemia Protocol Dextrose (Glutose 15) 0 gm PO ONCE PRN; Protocol PRN Reason: Hypoglycemia Protocol Glucagon (Glucagen Diagnostic Kit) 0 mg IM STAT PRN; Protocol PRN Reason: Hypoglycemia Protocol Guaifenesin/Dextromethorphan (Robitussin Dm) 5 ml PO Q4H PRN PRN Reason: Cough Last Admin: 07/18/18 02:19 Dose: 5 ml Heparin Sodium (Porcine) (Heparin) 5,000 units SC Q12 [facility] Last Admin: 07/23/18 09:10 Dose: 5,000 units Azithromycin 500 mg/ Sodium (Chloride) 250 mls @ 250 mls/hr IVPB DAILY [facility]; Protocol Last Admin: 07/23/18 09:09 Dose: 250 mls/hr Meropenem 1 gm/ Sodium (Chloride) 100 mls @ 100 mls/hr IVPB Q8H [facility]; Protocol Last Admin: 07/23/18 12:20 Dose: 100 mls/hr Micafungin Sodium 100 mg/ (Sodium Chloride) 100 mls @ 100 mls/hr IV Q24H [facility]; Protocol Last Admin: 07/23/18 13:44 Dose: 100 mls/hr Vancomycin HCl 1 gm/ Sodium (Chloride) 250 mls @ 166.7 mls/hr IVPB Q24H [facility]; Protocol Last Admin: 07/23/18 14:54 Dose: 166.7 mls/hr Ibuprofen (Motrin Tab) 600 mg PO TID PRN PRN Reason: Pain, moderate (4-7) Last Admin: 07/12/18 17:15 Dose: 600 mg Insulin Human Regular (Novolin R) 0 unit SC ACHS [facility]; Protocol Last Admin: 07/23/18 12:14 Dose: 3 units Methylprednisolone (Solu-Medrol) 40 mg IVP Q6 [facility] Last Admin: 07/23/18 12:20 Dose: 40 mg Multivitamins (Hexavitamin) 1 tab PO DAILY [facility] Last Admin: 07/23/18 09:10 Dose: 1 tab Pantoprazole Sodium (Protonix Ec Tab) 40 mg PO DAILY [facility] Last Admin: 07/23/18 09:10 Dose: 40 mg Tramadol HCl (Ultram) 25 mg PO TID PRN PRN Reason: Pain, severe (8-10) Last Admin: 07/14/18 08:29 Dose: 25 mg - Labs Labs: 07/22/18 06:25 07/22/18 06:25 PT 14.0 SECONDS (9.7-12.2) H 07/14/18 16:22 INR 1.3 07/14/18 16:22 APTT 32 SECONDS (21-34) 07/14/18 16:22 Attending/Attestation - Attestation I have personally seen and examined this patient.: Yes I have fully participated in the care of the patient.: Yes I have reviewed all pertinent clinical information, including history, physical exam and plan: Yes Notes (Text): 07/23/18 17:05 Medical attending: Patient's breathing situation is not changed from before. He is still using Bipap at night to help him sleep, still tacycardia and tachypnea when trying to move around. No changes made to medication regimen today. There are plans for further biopy this comming Friday - patient is aware of this David Wellington
[2018-07-23] MEDS: Budesonide 0.5 mg/2 ml Inhal Susp UD INH SCH ×2 (07:37→19:10)
[2018-07-23] MEDS: (Novolin R) Insulin Human Regular 100 units/ml vial SC SCH ×4 (08:21→22:15)
[2018-07-23] MEDS: Azithromycin 500 MG in Sodium Chloride 0.9% 250 ML IVPB SCH (09:09)
[2018-07-23] MEDS: Pantoprazole 40 mg EC Tab PO SCH (09:10)
[2018-07-23] MEDS: Multiple Vitamins Tab PO SCH (09:10)
[2018-07-23] MEDS: Micafungin 100 MG in Sodium Chloride 0.9% 100 ML IV SCH (13:44)
--- NOTE | 2018-07-23 16:41 | CP.PCM.PN ---
Subjective - Date & Time of Evaluation Date of Evaluation: 07/23/18 Time of Evaluation: 11:00 - Subjective Subjective: Patient seen and examined at bedside, lying down comfortably. Afebrile and in no acute distress. Denies chest pain, fever/chills Reports breathing well on non-rebreather Continue Duoneb, Pulmicort, Solu-Medrol Continue IV Abx CT Surgery (Dr. Oh) saw patient and recommends baseline PFT to optimize for OR. Will plan for lingular biopsy on 07/28/18. Spoke with pathology and will consult outside pulmonary pathologist for recs regarding recent lung biopsy. Objective - Vital Signs/Intake and Output Vital Signs (last 24 hours): Temp Pulse Resp BP Pulse Ox 97.9 F 93 H 20 142/85 99 07/23/18 16:32 07/23/18 16:32 07/23/18 16:32 07/23/18 16:32 07/23/18 16:32 Intake and Output: 07/23/18 07/23/18 06:59 18:59 Output Total 650 Balance -650 - Medications Medications: Current Medications Acetaminophen (Tylenol 325mg Tab) 650 mg PO Q6 PRN PRN Reason: Pain, Mild (1-3) Last Admin: 07/09/18 12:03 Dose: 650 mg Albuterol/Ipratropium (Duoneb 3 Mg/0.5 Mg (3 Ml) Ud) 3 ml INH RQ4 [facility] Last Admin: 07/23/18 11:08 Dose: Not Given Budesonide (Pulmicort Respules) 0.5 mg INH RQ12 [facility] Last Admin: 07/23/18 07:37 Dose: Not Given Dextrose (Dextrose 50% Inj) 0 ml IV STAT PRN; Protocol PRN Reason: Hypoglycemia Protocol Dextrose (Glutose 15) 0 gm PO ONCE PRN; Protocol PRN Reason: Hypoglycemia Protocol Glucagon (Glucagen Diagnostic Kit) 0 mg IM STAT PRN; Protocol PRN Reason: Hypoglycemia Protocol Guaifenesin/Dextromethorphan (Robitussin Dm) 5 ml PO Q4H PRN PRN Reason: Cough Last Admin: 07/18/18 02:19 Dose: 5 ml Heparin Sodium (Porcine) (Heparin) 5,000 units SC Q12 [facility] Last Admin: 07/23/18 09:10 Dose: 5,000 units Azithromycin 500 mg/ Sodium (Chloride) 250 mls @ 250 mls/hr IVPB DAILY [facility]; Protocol Last Admin: 07/23/18 09:09 Dose: 250 mls/hr Meropenem 1 gm/ Sodium (Chloride) 100 mls @ 100 mls/hr IVPB Q8H [facility]; Protocol Last Admin: 07/23/18 12:20 Dose: 100 mls/hr Micafungin Sodium 100 mg/ (Sodium Chloride) 100 mls @ 100 mls/hr IV Q24H [facility]; Protocol Last Admin: 07/23/18 13:44 Dose: 100 mls/hr Vancomycin HCl 1 gm/ Sodium (Chloride) 250 mls @ 166.7 mls/hr IVPB Q24H [facility]; Protocol Last Admin: 07/23/18 14:54 Dose: 166.7 mls/hr Ibuprofen (Motrin Tab) 600 mg PO TID PRN PRN Reason: Pain, moderate (4-7) Last Admin: 07/12/18 17:15 Dose: 600 mg Insulin Human Regular (Novolin R) 0 unit SC ACHS [facility]; Protocol Last Admin: 07/23/18 12:14 Dose: 3 units Methylprednisolone (Solu-Medrol) 40 mg IVP Q6 [facility] Last Admin: 07/23/18 12:20 Dose: 40 mg Multivitamins (Hexavitamin) 1 tab PO DAILY [facility] Last Admin: 07/23/18 09:10 Dose: 1 tab Pantoprazole Sodium (Protonix Ec Tab) 40 mg PO DAILY [facility] Last Admin: 07/23/18 09:10 Dose: 40 mg Tramadol HCl (Ultram) 25 mg PO TID PRN PRN Reason: Pain, severe (8-10) Last Admin: 07/14/18 08:29 Dose: 25 mg - Labs Labs: 07/22/18 06:25 07/22/18 06:25 PT 14.0 SECONDS (9.7-12.2) H 07/14/18 16:22 INR 1.3 07/14/18 16:22 APTT 32 SECONDS (21-34) 07/14/18 16:22 Assessment and Plan (1) Pulmonary fibrosis Status: Acute (2) Chronic respiratory failure with hypoxia Status: Acute
--- NOTE | 2018-07-23 18:20 | CP.PCM.PN ---
Subjective - Date & Time of Evaluation Date of Evaluation: 07/23/18 Time of Evaluation: 09:00 - Subjective Subjective: afebrile awake alert nad Objective - Vital Signs/Intake and Output Vital Signs (last 24 hours): Temp Pulse Resp BP Pulse Ox 97.9 F 93 H 20 142/85 99 07/23/18 16:32 07/23/18 16:32 07/23/18 16:32 07/23/18 16:32 07/23/18 16:32 Intake and Output: 07/23/18 07/23/18 06:59 18:59 Output Total 650 Balance -650 - Medications Medications: Current Medications Acetaminophen (Tylenol 325mg Tab) 650 mg PO Q6 PRN PRN Reason: Pain, Mild (1-3) Last Admin: 07/09/18 12:03 Dose: 650 mg Albuterol/Ipratropium (Duoneb 3 Mg/0.5 Mg (3 Ml) Ud) 3 ml INH RQ4 [facility] Last Admin: 07/23/18 11:08 Dose: Not Given Budesonide (Pulmicort Respules) 0.5 mg INH RQ12 [facility] Last Admin: 07/23/18 07:37 Dose: Not Given Dextrose (Dextrose 50% Inj) 0 ml IV STAT PRN; Protocol PRN Reason: Hypoglycemia Protocol Dextrose (Glutose 15) 0 gm PO ONCE PRN; Protocol PRN Reason: Hypoglycemia Protocol Glucagon (Glucagen Diagnostic Kit) 0 mg IM STAT PRN; Protocol PRN Reason: Hypoglycemia Protocol Guaifenesin/Dextromethorphan (Robitussin Dm) 5 ml PO Q4H PRN PRN Reason: Cough Last Admin: 07/18/18 02:19 Dose: 5 ml Heparin Sodium (Porcine) (Heparin) 5,000 units SC Q12 [facility] Last Admin: 07/23/18 09:10 Dose: 5,000 units Azithromycin 500 mg/ Sodium (Chloride) 250 mls @ 250 mls/hr IVPB DAILY [facility]; Protocol Last Admin: 07/23/18 09:09 Dose: 250 mls/hr Meropenem 1 gm/ Sodium (Chloride) 100 mls @ 100 mls/hr IVPB Q8H [facility]; Protocol Last Admin: 07/23/18 12:20 Dose: 100 mls/hr Micafungin Sodium 100 mg/ (Sodium Chloride) 100 mls @ 100 mls/hr IV Q24H [facility]; Protocol Last Admin: 07/23/18 13:44 Dose: 100 mls/hr Vancomycin HCl 1 gm/ Sodium (Chloride) 250 mls @ 166.7 mls/hr IVPB Q24H [facility]; Protocol Last Admin: 07/23/18 14:54 Dose: 166.7 mls/hr Ibuprofen (Motrin Tab) 600 mg PO TID PRN PRN Reason: Pain, moderate (4-7) Last Admin: 07/12/18 17:15 Dose: 600 mg Insulin Human Regular (Novolin R) 0 unit SC ACHS [facility]; Protocol Last Admin: 07/23/18 17:27 Dose: 2 units Methylprednisolone (Solu-Medrol) 40 mg IVP Q6 [facility] Last Admin: 07/23/18 17:26 Dose: 40 mg Multivitamins (Hexavitamin) 1 tab PO DAILY [facility] Last Admin: 07/23/18 09:10 Dose: 1 tab Pantoprazole Sodium (Protonix Ec Tab) 40 mg PO DAILY [facility] Last Admin: 07/23/18 09:10 Dose: 40 mg Tramadol HCl (Ultram) 25 mg PO TID PRN PRN Reason: Pain, severe (8-10) Last Admin: 07/14/18 08:29 Dose: 25 mg - Labs Labs: 07/22/18 06:25 07/22/18 06:25 PT 14.0 SECONDS (9.7-12.2) H 07/14/18 16:22 INR 1.3 07/14/18 16:22 APTT 32 SECONDS (21-34) 07/14/18 16:22 - Constitutional Appears: Non-toxic, Chronically Ill - Head Exam Head Exam: NORMOCEPHALIC - Eye Exam Eye Exam: absent: Scleral icterus - ENT Exam ENT Exam: Mucous Membranes Dry - Neck Exam Neck Exam: absent: Lymphadenopathy - Respiratory Exam Respiratory Exam: Decreased Breath Sounds - Cardiovascular Exam Cardiovascular Exam: REGULAR RHYTHM - GI/Abdominal Exam GI & Abdominal Exam: Distended, Soft - Rectal Exam Rectal Exam: Deferred - Exam Exam: NORMAL INSPECTION - Extremities Exam Extremities Exam: absent: Pedal Edema - Back Exam Back Exam: absent: CVA tenderness (L), CVA tenderness (R) - Neurological Exam Neurological Exam: Alert, Awake, Oriented x3 - Psychiatric Exam Psychiatric exam: Depressed - Skin Skin Exam: Dry Assessment and Plan (1) Chronic respiratory failure with hypoxia Status: Acute (2) Pulmonary fibrosis Status: Acute (3) Bronchiectasis Status: Acute - Assessment and Plan (Free Text) Assessment: Continue IV Abx CT Surgery (Dr. Oh) saw patient and recommends baseline PFT to optimize for OR. Will plan for lingular biopsy on 07/28/18.
[2018-07-24] MEDS: Albuterol-Ipratrop 3 mg / 0.5 (3 ml) UD INH SCH ×6 (00:47→19:40)
[2018-07-24] MEDS: MethylPREDNISolone 40 mg Vial IVP SCH ×4 (05:41→23:54)
[2018-07-24] MEDS: Meropenem 1 GM in Sodium Chloride 0.9% 100 ML IVPB SCH ×3 (05:42→21:43)
[2018-07-24 07:46] LABS: BASO % 0.2 % (0.0-2.0); HEMOGLOBIN 13.8 g/dL (12.0-18.0); LYMPH # 0.2 K/uL (1.0-4.3); LYMPH % 1.3 % (20.0-40.0); MEAN CELL VOLUME 98.7 fL (80.0-94.0); MEAN CORPUSCULAR HEMOGLOBIN 32.6 pg (27.0-31.0); MEAN PLATELET VOLUME 9.3 fL (7.2-11.7); MONO # 0.3 K/uL (0.0-0.8); MONO % 2.5 % (0.0-10.0); NEUT # 11.6 K/uL (1.8-7.0); PLATELET COUNT 181 K/uL (130-400); RBC 4.23 Mil/uL (4.40-5.90)
[2018-07-24] MEDS: (Novolin R) Insulin Human Regular 100 units/ml vial SC SCH ×4 (08:29→22:09)
[2018-07-24 08:49] LABS: ALB/GLOB RATIO 0.8 (1.0-2.1); ALBUMIN 2.9 g/dL (3.5-5.0); ALT/SGPT 24 U/L (21-72); AST/SGOT 21 U/L (17-59); BLOOD UREA NITROGEN 29 mg/dL (9-20); GFR NON-AFRICAN AMERICAN > 60
[2018-07-24 08:53] LABS: LYMPHOCYTE 1 % (20-40); MONOCYTE 2 % (0-10); NEUTROPHIL 97 % (50-75); PLATELET ESTIMATE NORMAL (NORMAL); TOTAL CELLS COUNTED 100
[2018-07-24] MEDS: Budesonide 0.5 mg/2 ml Inhal Susp UD INH SCH ×2 (09:05→19:40)
[2018-07-24] MEDS: Pantoprazole 40 mg EC Tab PO SCH (10:42)
[2018-07-24] MEDS: Multiple Vitamins Tab PO SCH (10:42)
[2018-07-24] MEDS: Azithromycin 500 MG in Sodium Chloride 0.9% 250 ML IVPB SCH (10:43)
--- NOTE | 2018-07-24 13:03 | CP.PCM.PN ---
Subjective - Date & Time of Evaluation Date of Evaluation: 07/24/18 Time of Evaluation: 07:00 - Subjective Subjective: Patient examined in room, sitting comfortably in chair. No acute overnight events. Patient says hes a bit tired. Reports he is doing well breathing, alternating between the non-rebreather and BiPAP and NC. Denies further complaint Objective - Vital Signs/Intake and Output Vital Signs (last 24 hours): Temp Pulse Resp BP Pulse Ox 97.4 F L 95 H 21 128/81 97 07/24/18 07:39 07/24/18 07:39 07/24/18 07:39 07/24/18 07:39 07/24/18 07:39 - Medications Medications: Current Medications Acetaminophen (Tylenol 325mg Tab) 650 mg PO Q6 PRN PRN Reason: Pain, Mild (1-3) Last Admin: 07/09/18 12:03 Dose: 650 mg Albuterol/Ipratropium (Duoneb 3 Mg/0.5 Mg (3 Ml) Ud) 3 ml INH RQ4 [facility] Last Admin: 07/24/18 11:57 Dose: 3 ml Budesonide (Pulmicort Respules) 0.5 mg INH RQ12 [facility] Last Admin: 07/24/18 09:05 Dose: Not Given Dextrose (Dextrose 50% Inj) 0 ml IV STAT PRN; Protocol PRN Reason: Hypoglycemia Protocol Dextrose (Glutose 15) 0 gm PO ONCE PRN; Protocol PRN Reason: Hypoglycemia Protocol Glucagon (Glucagen Diagnostic Kit) 0 mg IM STAT PRN; Protocol PRN Reason: Hypoglycemia Protocol Guaifenesin/Dextromethorphan (Robitussin Dm) 5 ml PO Q4H PRN PRN Reason: Cough Last Admin: 07/18/18 02:19 Dose: 5 ml Heparin Sodium (Porcine) (Heparin) 5,000 units SC Q12 [facility] Last Admin: 07/24/18 10:42 Dose: 5,000 units Azithromycin 500 mg/ Sodium (Chloride) 250 mls @ 250 mls/hr IVPB DAILY [facility]; Protocol Last Admin: 07/24/18 10:43 Dose: 250 mls/hr Meropenem 1 gm/ Sodium (Chloride) 100 mls @ 100 mls/hr IVPB Q8H [facility]; Protocol Last Admin: 07/24/18 12:51 Dose: 100 mls/hr Micafungin Sodium 100 mg/ (Sodium Chloride) 100 mls @ 100 mls/hr IV Q24H [facility]; Protocol Last Admin: 07/23/18 13:44 Dose: 100 mls/hr Vancomycin HCl 1 gm/ Sodium (Chloride) 250 mls @ 166.7 mls/hr IVPB Q24H [facility]; Protocol Last Admin: 07/23/18 14:54 Dose: 166.7 mls/hr Ibuprofen (Motrin Tab) 600 mg PO TID PRN PRN Reason: Pain, moderate (4-7) Last Admin: 07/12/18 17:15 Dose: 600 mg Insulin Human Regular (Novolin R) 0 unit SC ACHS [facility]; Protocol Last Admin: 07/24/18 12:21 Dose: 4 units Methylprednisolone (Solu-Medrol) 40 mg IVP Q6 [facility] Last Admin: 07/24/18 12:51 Dose: 40 mg Multivitamins (Hexavitamin) 1 tab PO DAILY [facility] Last Admin: 07/24/18 10:42 Dose: 1 tab Pantoprazole Sodium (Protonix Ec Tab) 40 mg PO DAILY [facility] Last Admin: 07/24/18 10:42 Dose: 40 mg Tramadol HCl (Ultram) 25 mg PO TID PRN PRN Reason: Pain, severe (8-10) Last Admin: 07/14/18 08:29 Dose: 25 mg - Labs Labs: 07/24/18 07:38 07/24/18 07:38 PT 14.0 SECONDS (9.7-12.2) H 07/14/18 16:22 INR 1.3 07/14/18 16:22 APTT 32 SECONDS (21-34) 07/14/18 16:22 - Additional Findings Additional findings: - Constitutional Appears: Non-toxic, No Acute Distress - Head Exam Head Exam: ATRAUMATIC, NORMAL INSPECTION, NORMOCEPHALIC - Eye Exam Eye Exam: EOMI, Normal appearance - ENT Exam ENT Exam: Mucous Membranes Moist, Normal Exam - Neck Exam Neck Exam: Normal Inspection - Respiratory Exam Respiratory Exam: Accessory Muscle Use, Rales, NORMAL BREATHING PATTERN. absent: Respiratory Distress Additional comments: diffuse, B/L - Cardiovascular Exam Cardiovascular Exam: Tachycardia, REGULAR RHYTHM - GI/Abdominal Exam GI & Abdominal Exam: Soft. absent: Tenderness - Extremities Exam Extremities Exam: absent: Calf Tenderness, Normal Inspection (stasis dermatitis skin changes B/L LE), Pedal Edema - Neurological Exam Neurological Exam: Alert, Awake, Oriented x3 - Psychiatric Exam Psychiatric exam: Normal Affect, Normal Mood - Skin Skin Exam: Dry, Intact, Normal Color, Warm Assessment and Plan - Assessment and Plan (Free Text) Assessment: 63 year old male admitted with SOB 2/2 to pulmonary fibrosis/ILD Plan: Suspected ILD -per Dr. Vera, pt should be switched to NC as tolerated -bx pathology consistent with fibrosis -plan for lingula wedge bx with CT -bronchial cxs positive for Ramonita -duonebs, guaifenesan/dextromethophan, pulmicort, [id number] down from 60 to 40 q6 with good response, -pain control prn, ultram, ibuprofen, acetaminophen -IV Abx/Antifungals, azithromycin, micafungin, merem, vanco -Pulm consult Dr. Vera -CT consult Dr. Oh Ramonita -micafungin(07/20) DM2 -ISS -accuchecks achs Diarrhea -resolved -c.diff negative Ppx -SCD contraindicated in PVD -DVT ppx, heparin 5000 sc q12 -GI ppx, protonix -encourage OOB to chair, ambulation Discussed with Dr. Wellington -Irasema Gibson, PGY-1
[2018-07-24] MEDS: Micafungin 100 MG in Sodium Chloride 0.9% 100 ML IV SCH (14:07)
--- NOTE | 2018-07-24 14:27 | CP.PCM.PN ---
Subjective - Date & Time of Evaluation Date of Evaluation: 07/24/18 Time of Evaluation: 14:07 - Subjective Subjective: Reason for consultation: Lung Biopsy. Requested by Dr. Vera, Pt s/e. Progress notes and imaging studies reviewed. 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 CT chest: advanced interstitial fibrosis, honeycomb lung, bronchitises, and paraseptal emphysema. Results of brochoscopy by Dr. Vera are still pending. It would be a major undertaking for pt to have even open lingular biopsy. Pt is not able to have PFTs due to sob. I have discussed risks and benefits of surgical bx with Dr. Vera, and we jointly decided to hold off surgery until we obtain more information about bronchoscopic bx results. a/p: 1. Advanced interstitial fibrosis of lung. 2. chronic respiratory failure. 3. Hold off lingula bx. 4. Will follow. Objective - Vital Signs/Intake and Output Vital Signs (last 24 hours): Temp Pulse Resp BP Pulse Ox 97.4 F L 95 H 21 128/81 97 07/24/18 07:39 07/24/18 07:39 07/24/18 07:39 07/24/18 07:39 07/24/18 07:39 - Medications Medications: Current Medications Acetaminophen (Tylenol 325mg Tab) 650 mg PO Q6 PRN PRN Reason: Pain, Mild (1-3) Last Admin: 07/09/18 12:03 Dose: 650 mg Albuterol/Ipratropium (Duoneb 3 Mg/0.5 Mg (3 Ml) Ud) 3 ml INH RQ4 [facility] Last Admin: 07/24/18 11:57 Dose: 3 ml Budesonide (Pulmicort Respules) 0.5 mg INH RQ12 [facility] Last Admin: 07/24/18 09:05 Dose: Not Given Dextrose (Dextrose 50% Inj) 0 ml IV STAT PRN; Protocol PRN Reason: Hypoglycemia Protocol Dextrose (Glutose 15) 0 gm PO ONCE PRN; Protocol PRN Reason: Hypoglycemia Protocol Glucagon (Glucagen Diagnostic Kit) 0 mg IM STAT PRN; Protocol PRN Reason: Hypoglycemia Protocol Guaifenesin/Dextromethorphan (Robitussin Dm) 5 ml PO Q4H PRN PRN Reason: Cough Last Admin: 07/18/18 02:19 Dose: 5 ml Heparin Sodium (Porcine) (Heparin) 5,000 units SC Q12 [facility] Last Admin: 07/24/18 10:42 Dose: 5,000 units Azithromycin 500 mg/ Sodium (Chloride) 250 mls @ 250 mls/hr IVPB DAILY [facility]; Protocol Last Admin: 07/24/18 10:43 Dose: 250 mls/hr Meropenem 1 gm/ Sodium (Chloride) 100 mls @ 100 mls/hr IVPB Q8H [facility]; Protocol Last Admin: 07/24/18 12:51 Dose: 100 mls/hr Micafungin Sodium 100 mg/ (Sodium Chloride) 100 mls @ 100 mls/hr IV Q24H [facility]; Protocol Last Admin: 07/23/18 13:44 Dose: 100 mls/hr Vancomycin HCl 1 gm/ Sodium (Chloride) 250 mls @ 166.7 mls/hr IVPB Q24H [facility]; Protocol Last Admin: 07/23/18 14:54 Dose: 166.7 mls/hr Ibuprofen (Motrin Tab) 600 mg PO TID PRN PRN Reason: Pain, moderate (4-7) Last Admin: 07/12/18 17:15 Dose: 600 mg Insulin Human Regular (Novolin R) 0 unit SC ACHS [facility]; Protocol Last Admin: 07/24/18 12:21 Dose: 4 units Methylprednisolone (Solu-Medrol) 40 mg IVP Q6 [facility] Last Admin: 07/24/18 12:51 Dose: 40 mg Multivitamins (Hexavitamin) 1 tab PO DAILY [facility] Last Admin: 07/24/18 10:42 Dose: 1 tab Pantoprazole Sodium (Protonix Ec Tab) 40 mg PO DAILY [facility] Last Admin: 07/24/18 10:42 Dose: 40 mg Tramadol HCl (Ultram) 25 mg PO TID PRN PRN Reason: Pain, severe (8-10) Last Admin: 07/14/18 08:29 Dose: 25 mg - Labs Labs: 07/24/18 07:38 07/24/18 07:38 PT 14.0 SECONDS (9.7-12.2) H 07/14/18 16:22 INR 1.3 07/14/18 16:22 APTT 32 SECONDS (21-34) 07/14/18 16:22
--- NOTE | 2018-07-25 01:18 | CP.PCM.PN ---
<Brandie Varela - Last Filed: 07/25/18 01:16> Subjective - Date & Time of Evaluation Date of Evaluation: 07/25/18 Time of Evaluation: 01:16 - Subjective Subjective: PGY-1 Brandie Varela D.O. Medicine progress note for Dr. Wellington's service: Patient was seen and examined. No acute complaints. Patient continues to be intermittently SOB. Cough has improved. Denies HOLDER, chest pain. he is eating and sleeping well. Objective - Vital Signs/Intake and Output Vital Signs (last 24 hours): Temp Pulse Resp BP Pulse Ox 97.9 F 104 H 20 135/88 99 07/24/18 23:22 07/24/18 23:22 07/24/18 23:22 07/24/18 23:22 07/24/18 23:22 Intake and Output: 07/24/18 07/25/18 18:59 06:59 Output Total 750 Balance -750 - Medications Medications: Current Medications Acetaminophen (Tylenol 325mg Tab) 650 mg PO Q6 PRN PRN Reason: Pain, Mild (1-3) Last Admin: 07/09/18 12:03 Dose: 650 mg Albuterol/Ipratropium (Duoneb 3 Mg/0.5 Mg (3 Ml) Ud) 3 ml INH RQ4 [facility] Last Admin: 07/24/18 19:40 Dose: 3 ml Budesonide (Pulmicort Respules) 0.5 mg INH RQ12 [facility] Last Admin: 07/24/18 19:40 Dose: 0.5 mg Dextrose (Dextrose 50% Inj) 0 ml IV STAT PRN; Protocol PRN Reason: Hypoglycemia Protocol Dextrose (Glutose 15) 0 gm PO ONCE PRN; Protocol PRN Reason: Hypoglycemia Protocol Glucagon (Glucagen Diagnostic Kit) 0 mg IM STAT PRN; Protocol PRN Reason: Hypoglycemia Protocol Guaifenesin/Dextromethorphan (Robitussin Dm) 5 ml PO Q4H PRN PRN Reason: Cough Last Admin: 07/18/18 02:19 Dose: 5 ml Heparin Sodium (Porcine) (Heparin) 5,000 units SC Q12 [facility] Last Admin: 07/24/18 21:41 Dose: 5,000 units Azithromycin 500 mg/ Sodium (Chloride) 250 mls @ 250 mls/hr IVPB DAILY [facility]; Protocol Last Admin: 07/24/18 10:43 Dose: 250 mls/hr Meropenem 1 gm/ Sodium (Chloride) 100 mls @ 100 mls/hr IVPB Q8H [facility]; Protocol Last Admin: 07/24/18 21:43 Dose: 100 mls/hr Micafungin Sodium 100 mg/ (Sodium Chloride) 100 mls @ 100 mls/hr IV Q24H [facility]; Protocol Last Admin: 07/24/18 14:07 Dose: 100 mls/hr Ibuprofen (Motrin Tab) 600 mg PO TID PRN PRN Reason: Pain, moderate (4-7) Last Admin: 07/12/18 17:15 Dose: 600 mg Insulin Human Regular (Novolin R) 0 unit SC ACHS [facility]; Protocol Last Admin: 07/24/18 22:09 Dose: Not Given Methylprednisolone (Solu-Medrol) 40 mg IVP Q6 [facility] Last Admin: 07/24/18 23:54 Dose: 40 mg Multivitamins (Hexavitamin) 1 tab PO DAILY [facility] Last Admin: 07/24/18 10:42 Dose: 1 tab Pantoprazole Sodium (Protonix Ec Tab) 40 mg PO DAILY [facility] Last Admin: 07/24/18 10:42 Dose: 40 mg Tramadol HCl (Ultram) 25 mg PO TID PRN PRN Reason: Pain, severe (8-10) Last Admin: 07/14/18 08:29 Dose: 25 mg - Labs Labs: 07/24/18 07:38 07/24/18 07:38 PT 14.0 SECONDS (9.7-12.2) H 07/14/18 16:22 INR 1.3 07/14/18 16:22 APTT 32 SECONDS (21-34) 07/14/18 16:22 - Constitutional Appears: Non-toxic, No Acute Distress - Head Exam Head Exam: ATRAUMATIC, NORMAL INSPECTION - Eye Exam Eye Exam: EOMI, Normal appearance, PERRL - ENT Exam ENT Exam: Mucous Membranes Moist - Neck Exam Neck Exam: Normal Inspection - Respiratory Exam Respiratory Exam: Decreased Breath Sounds, Rales, Rhonchi. absent: Respiratory Distress - Cardiovascular Exam Cardiovascular Exam: Tachycardia, REGULAR RHYTHM - GI/Abdominal Exam GI & Abdominal Exam: Soft. absent: Tenderness - Rectal Exam Rectal Exam: Deferred - Extremities Exam Extremities Exam: Normal Inspection. absent: Pedal Edema - Neurological Exam Neurological Exam: Alert, Awake, CN II-XII Intact, Oriented x3 - Psychiatric Exam Psychiatric exam: Normal Affect, Normal Mood - Skin Skin Exam: Dry, Intact, Normal Color, Warm Assessment and Plan - Assessment and Plan (Free Text) Assessment: Patient is a 63 yo [place] male with a history of pre-DM and hypotension not on any meds who presented to ED with SOB, cough, and weakness. Patient has a significant smoking history- 20 pk yrs and quit 1 month ago. 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 Imaging shows extensive interstitial pulmonary disease as well as pancreatic head abnormalities. Multiple tumor markers elevated. Consulted GI who did pancreas CT. Will need repeat imaging as outpatient. TB was ruled out and patient taken off of airborne isolation. S/p b ronchoscopy with Bx 07/15. Scheduled for a wedge Bx on 07/28. Patient is alternating between BiPAP. nonrebreather, and NC. Plan: Interstitial pulmonary fibrosis- suspect interstitial lung disease due to smoking and/or exposures, r/o cancer, r/o TB (homeless, from [place], no BCG vaccine) - Ruled out TB- off isolation - BiPAP, nonrebreather, NC PRN - Afebrile - CT head: no acute findings - CTA head/neck: no significant stenoses or abnormalities - CXR: peripheral interstitial and to lesser extent confluent changes bilaterally likely chronic in nature - CT chest: Findings consistent with diffuse significant interstitial fibrosis with what probably represents paraseptal emphysematous changes and bronchiectasis. There are scattered areas of confluent and ground-glass opacities. Calcified granuloma right lung base. There are mildly enlarged paratracheal and subcarinal lymph nodes - Echo: EF 70%, no diastolic dysfunction, mild-mod TR, mild-mod pulm HTN (44 mmHg), no pericardial effusion - UDS negative - HIV negative - Rapid flu negative - Mycoplasma negative - ProBNP 1540 - ESR 106 - Trop negative x2 - PAULO negative - SRP Ab negative - Blood Cx no growth - Sputum Cx: Ramonita - Bronchoscopy Bx- fibrosis, acute inflammation, emphysematous changes - Bronchoscopy washings: no malignant cells - Duoneb Q4H [facility] - Pulmicort Q12H - Solumedrol 40mg IVP Q6H- tape - Robitussin DM 5 mL PO Q4H PRN - Azithro 500 mg IVPB daily- started 07/09 - Meropenem 1 g Q8H- started 07/20 - Micafungin 100 mg IV daily- started 07/20 - Tylenol 650 mg PO Q6H PRN - Ibuprofen 600 mg PO TID PRN - Tramadol 25 mg PO TID PRN - ICU consulted- does not require critical care at this time - Pulmonology consulted (Chuy)- NC as tolerated, bronchoscopy 07/15 - CT surgery consulted (Adriano)- wedge Bx 07/28 Acute sick euthyroid syndrome - TSH low (0.05, 0.17)- suppression exacerbated by IV steroids - Free T4 wnl/low (1.37, 0.76), tot T4 low (3.24, 3.22), T3 wnl (2.89) - Thyroid Abs negative - Endocrinology consulted (Sav)- serial labs Pancreatic abnormality - CT A/P: Question enlargement of the pancreatic head/uncinate process. It is unclear if this finding is the results of edematous pancreas/mass or collapsed adjacent duodenum which is difficult to distinguish. Recommend follow-up pancreatic CT for further assessment. - Pancreatic CT: Prominence of pancreatic head without discrete mass, likely reflects normal tissue. Recommend f/u in 3-6 months. - Recent weight loss - CEA elevated (6.3), CA 19-9 elevated (215), CA 125 elevated (46.8) - AFP wnl (1.4) - GI consulted (Venessa)- repeat imaging as outpatient Pre-diabetes mellitus, chronic - A1c 5.5 - Hypoglycemic protocol - Accuchecks ACHS with ISS Pulsating abdominal mass- likely palpable due to thin body habitus - Abd u/s: no aortic aneurysm - CT A/P: 2.1 x 2.9 x 3.6 cm aneurysmal dilatation of the distal aorta. Moderate constipation. - Hepatitis panel negative Diarrhea, resolved - C. diff negative Dysuria and flank pain, resolved - UA: 2+ blood, 15 RBC - Urine Cx no growth - CT A/P: no abnormalities noted Ppx: VTE: Heparin 5000 units Q12H GI: PTX 40 mg PO daily Dietary supplements: Ensure Enlive TID, MV daily Code status: DNI Case was discussed with attending, Dr. Wellington. <David Wellington - Last Filed: 07/25/18 09:04> Objective - Vital Signs/Intake and Output Vital Signs (last 24 hours): Temp Pulse Resp BP Pulse Ox 97.1 F L 93 H 20 151/89 H 98 07/25/18 07:00 07/25/18 07:00 07/25/18 07:00 07/25/18 07:00 07/25/18 07:00 Intake and Output: 07/25/18 07/25/18 06:59 18:59 Output Total 1000 Balance -1000 - Medications Medications: Current Medications Acetaminophen (Tylenol 325mg Tab) 650 mg PO Q6 PRN PRN Reason: Pain, Mild (1-3) Last Admin: 07/09/18 12:03 Dose: 650 mg Albuterol/Ipratropium (Duoneb 3 Mg/0.5 Mg (3 Ml) Ud) 3 ml INH RQ4 [facility] Last Admin: 07/25/18 08:13 Dose: 3 ml Budesonide (Pulmicort Respules) 0.5 mg INH RQ12 [facility] Last Admin: 07/25/18 08:13 Dose: 0.5 mg Dextrose (Dextrose 50% Inj) 0 ml IV STAT PRN; Protocol PRN Reason: Hypoglycemia Protocol Dextrose (Glutose 15) 0 gm PO ONCE PRN; Protocol PRN Reason: Hypoglycemia Protocol Glucagon (Glucagen Diagnostic Kit) 0 mg IM STAT PRN; Protocol PRN Reason: Hypoglycemia Protocol Guaifenesin/Dextromethorphan (Robitussin Dm) 5 ml PO Q4H PRN PRN Reason: Cough Last Admin: 07/18/18 02:19 Dose: 5 ml Heparin Sodium (Porcine) (Heparin) 5,000 units SC Q12 [facility] Last Admin: 07/24/18 21:41 Dose: 5,000 units Azithromycin 500 mg/ Sodium (Chloride) 250 mls @ 250 mls/hr IVPB DAILY [facility]; Protocol Last Admin: 07/24/18 10:43 Dose: 250 mls/hr Meropenem 1 gm/ Sodium (Chloride) 100 mls @ 100 mls/hr IVPB Q8H [facility]; Protocol Last Admin: 07/25/18 05:34 Dose: 100 mls/hr Micafungin Sodium 100 mg/ (Sodium Chloride) 100 mls @ 100 mls/hr IV Q24H [facility]; Protocol Last Admin: 07/24/18 14:07 Dose: 100 mls/hr Ibuprofen (Motrin Tab) 600 mg PO TID PRN PRN Reason: Pain, moderate (4-7) Last Admin: 07/12/18 17:15 Dose: 600 mg Insulin Human Regular (Novolin R) 0 unit SC ACHS [facility]; Protocol Last Admin: 07/25/18 08:25 Dose: 6 units Methylprednisolone (Solu-Medrol) 40 mg IVP Q6 [facility] Last Admin: 07/25/18 05:33 Dose: 40 mg Multivitamins (Hexavitamin) 1 tab PO DAILY [facility] Last Admin: 07/24/18 10:42 Dose: 1 tab Pantoprazole Sodium (Protonix Ec Tab) 40 mg PO DAILY [facility] Last Admin: 07/24/18 10:42 Dose: 40 mg Tramadol HCl (Ultram) 25 mg PO TID PRN PRN Reason: Pain, severe (8-10) Last Admin: 07/14/18 08:29 Dose: 25 mg - Labs Labs: 07/25/18 07:21 07/25/18 07:21 PT 14.0 SECONDS (9.7-12.2) H 07/14/18 16:22 INR 1.3 07/14/18 16:22 APTT 32 SECONDS (21-34) 07/14/18 16:22 Attending/Attestation - Attestation I have personally seen and examined this patient.: Yes I have fully participated in the care of the patient.: Yes I have reviewed all pertinent clinical information, including history, physical exam and plan: Yes Notes (Text): 07/25/18 09:02 Medical attending: Patient was seen and examined by me. He reported no acute events overnight. His breathing situation is still the same, at this time will not decrease the solumedrol. I can look into his room from the stairway so he does not know I am looking at him and he is always he is persistently using the NRB mask Hopefully this Tues biopsy will help with further diagnosis David Wellington
[2018-07-25] MEDS: Albuterol-Ipratrop 3 mg / 0.5 (3 ml) UD INH SCH ×5 (02:49→19:35)
[2018-07-25] MEDS: MethylPREDNISolone 40 mg Vial IVP SCH ×4 (05:33→23:49)
[2018-07-25] MEDS: Meropenem 1 GM in Sodium Chloride 0.9% 100 ML IVPB SCH ×3 (05:34→21:17)
[2018-07-25 07:35] LABS: BASO % 0.2 % (0.0-2.0); HEMOGLOBIN 13.7 g/dL (12.0-18.0); LYMPH # 0.2 K/uL (1.0-4.3); LYMPH % 1.5 % (20.0-40.0); MEAN CELL VOLUME 98.5 fL (80.0-94.0); MEAN CORPUSCULAR HEMOGLOBIN 32.7 pg (27.0-31.0); MEAN CORPUSCULAR HGB CONC 33.2 g/dL (33.0-37.0); MEAN PLATELET VOLUME 9.2 fL (7.2-11.7); MONO # 0.2 K/uL (0.0-0.8); MONO % 2.2 % (0.0-10.0); NEUT # 10.7 K/uL (1.8-7.0); NEUT % 96.1 % (50.0-75.0); PLATELET COUNT 179 K/uL (130-400); RBC 4.19 Mil/uL (4.40-5.90); RED CELL DISTRIBUTION WIDTH 16.3 % (11.5-14.5); WHITE BLOOD COUNT 11.2 K/uL (4.8-10.8)
[2018-07-25] MEDS: Budesonide 0.5 mg/2 ml Inhal Susp UD INH SCH ×2 (08:13→19:35)
[2018-07-25 08:24] LABS: ALB/GLOB RATIO 0.8 (1.0-2.1); ALBUMIN 2.8 g/dL (3.5-5.0); ALT/SGPT 24 U/L (21-72); AST/SGOT 25 U/L (17-59); BLOOD UREA NITROGEN 24 mg/dL (9-20); CALCIUM 8.1 mg/dl (8.6-10.4); GFR NON-AFRICAN AMERICAN > 60
[2018-07-25] MEDS: (Novolin R) Insulin Human Regular 100 units/ml vial SC SCH ×4 (08:25→21:16)
[2018-07-25 09:01] LABS: BANDS 1 % (0-2); LYMPHOCYTE 1 % (20-40); MONOCYTE 2 % (0-10); NEUTROPHIL 96 % (50-75); PLATELET ESTIMATE NORMAL (NORMAL); TOTAL CELLS COUNTED 100
[2018-07-25 09:02] LABS: ANISOCYTOSIS SLIGHT; TOXIC GRANULATION PRESENT
[2018-07-25 09:03] LABS: LARGE PLATELETS PRESENT; POLYCHROMIC SLIGHT
[2018-07-25] MEDS: Pantoprazole 40 mg EC Tab PO SCH (09:15)
[2018-07-25] MEDS: Multiple Vitamins Tab PO SCH (09:15)
[2018-07-25] MEDS: Azithromycin 500 MG in Sodium Chloride 0.9% 250 ML IVPB SCH (09:17)
[2018-07-25] MEDS: Micafungin 100 MG in Sodium Chloride 0.9% 100 ML IV SCH (13:57)
--- NOTE | 2018-07-26 02:28 | CP.PCM.PN ---
<Brandie Varela - Last Filed: 07/26/18 02:25> Subjective - Date & Time of Evaluation Date of Evaluation: 07/26/18 Time of Evaluation: 02:25 - Subjective Subjective: PGY-1 Brandie Varela D.O. Medicine progress note for Dr. Wellington's service: Patient was seen and examined. Patient using nonrebreather and not in acute distress. He has no new complaints in addition to his SOB. He is awaiting Bx procedure on Friday and hopes to get further answers and treatment at that time. Denies HOLDER, chest pain, palpitations, N/V/D/C. Objective - Vital Signs/Intake and Output Vital Signs (last 24 hours): Temp Pulse Resp BP Pulse Ox 97.2 F L 97 H 20 136/82 98 07/26/18 00:00 07/26/18 00:00 07/26/18 00:00 07/26/18 00:00 07/26/18 00:00 Intake and Output: 07/25/18 07/26/18 18:59 06:59 Intake Total 860 Output Total 800 Balance 60 - Medications Medications: Current Medications Acetaminophen (Tylenol 325mg Tab) 650 mg PO Q6 PRN PRN Reason: Pain, Mild (1-3) Last Admin: 07/09/18 12:03 Dose: 650 mg Albuterol/Ipratropium (Duoneb 3 Mg/0.5 Mg (3 Ml) Ud) 3 ml INH RQ4 [facility] Last Admin: 07/26/18 00:00 Dose: 3 ml Budesonide (Pulmicort Respules) 0.5 mg INH RQ12 [facility] Last Admin: 07/25/18 19:35 Dose: 0.5 mg Dextrose (Dextrose 50% Inj) 0 ml IV STAT PRN; Protocol PRN Reason: Hypoglycemia Protocol Dextrose (Glutose 15) 0 gm PO ONCE PRN; Protocol PRN Reason: Hypoglycemia Protocol Glucagon (Glucagen Diagnostic Kit) 0 mg IM STAT PRN; Protocol PRN Reason: Hypoglycemia Protocol Guaifenesin/Dextromethorphan (Robitussin Dm) 5 ml PO Q4H PRN PRN Reason: Cough Last Admin: 07/18/18 02:19 Dose: 5 ml Heparin Sodium (Porcine) (Heparin) 5,000 units SC Q12 [facility] Last Admin: 07/25/18 21:17 Dose: 5,000 units Azithromycin 500 mg/ Sodium (Chloride) 250 mls @ 250 mls/hr IVPB DAILY [facility]; Protocol Last Admin: 07/25/18 09:17 Dose: 250 mls/hr Meropenem 1 gm/ Sodium (Chloride) 100 mls @ 100 mls/hr IVPB Q8H [facility]; Protocol Last Admin: 07/25/18 21:17 Dose: 100 mls/hr Micafungin Sodium 100 mg/ (Sodium Chloride) 100 mls @ 100 mls/hr IV Q24H [facility]; Protocol Last Admin: 07/25/18 13:57 Dose: 100 mls/hr Ibuprofen (Motrin Tab) 600 mg PO TID PRN PRN Reason: Pain, moderate (4-7) Last Admin: 07/12/18 17:15 Dose: 600 mg Insulin Human Regular (Novolin R) 0 unit SC ACHS [facility]; Protocol Last Admin: 07/25/18 21:16 Dose: Not Given Methylprednisolone (Solu-Medrol) 40 mg IVP Q6 [facility] Last Admin: 07/25/18 23:49 Dose: 40 mg Multivitamins (Hexavitamin) 1 tab PO DAILY [facility] Last Admin: 07/25/18 09:15 Dose: 1 tab Pantoprazole Sodium (Protonix Ec Tab) 40 mg PO DAILY [facility] Last Admin: 07/25/18 09:15 Dose: 40 mg Tramadol HCl (Ultram) 25 mg PO TID PRN PRN Reason: Pain, severe (8-10) Last Admin: 07/14/18 08:29 Dose: 25 mg - Labs Labs: 07/25/18 07:21 07/25/18 07:21 PT 14.0 SECONDS (9.7-12.2) H 07/14/18 16:22 INR 1.3 07/14/18 16:22 APTT 32 SECONDS (21-34) 07/14/18 16:22 - Constitutional Appears: No Acute Distress - Head Exam Head Exam: ATRAUMATIC, NORMAL INSPECTION - Eye Exam Eye Exam: EOMI, Normal appearance, PERRL - ENT Exam ENT Exam: Mucous Membranes Moist - Neck Exam Neck Exam: Normal Inspection - Respiratory Exam Respiratory Exam: Accessory Muscle Use, Decreased Breath Sounds, Rales. absent: Chest Wall Tenderness, Respiratory Distress Additional comments: nonrebreather - Cardiovascular Exam Cardiovascular Exam: Tachycardia, REGULAR RHYTHM, +S1, +S2 - GI/Abdominal Exam GI & Abdominal Exam: Soft. absent: Tenderness - Rectal Exam Rectal Exam: Deferred - Extremities Exam Extremities Exam: Normal Inspection. absent: Pedal Edema, Tenderness - Neurological Exam Neurological Exam: Alert, Awake, CN II-XII Intact, Oriented x3 - Psychiatric Exam Psychiatric exam: Normal Affect, Normal Mood - Skin Skin Exam: Dry, Intact, Normal Color, Warm Assessment and Plan - Assessment and Plan (Free Text) Assessment: Patient is a 63 yo male with a history of pre-DM and hypotension not on any meds who presented to ED with SOB, cough, and weakness. Patient has a significant smoking history- 20 pk yrs and quit 1 month ago. 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 Imaging shows extensive interstitial pulmonary disease as well as pancreatic head abnormalities. Multiple tumor markers elevated. Consulted GI who did pancreas CT. Will need repeat imaging as outpatient. TB was ruled out and patient taken off of airborne isolation. S/p bronchoscopy with Bx 07/15. Scheduled for a wedge Bx on 07/28. Patient is alternating between BiPAP. nonrebreather, and NC but mostly prefers the nonrebreather. Plan: Interstitial pulmonary fibrosis- suspect interstitial lung disease due to smoking and/or exposures, r/o cancer, r/o TB (homeless, from [place], no BCG vaccine) - Ruled out TB- off isolation - BiPAP, nonrebreather, NC PRN - Afebrile - CT head: no acute findings - CTA head/neck: no significant stenoses or abnormalities - CXR: peripheral interstitial and to lesser extent confluent changes bilaterally likely chronic in nature - CT chest: Findings consistent with diffuse significant interstitial fibrosis with what probably represents paraseptal emphysematous changes and bronchiectasis. There are scattered areas of confluent and ground-glass opacities. Calcified granuloma right lung base. There are mildly enlarged paratracheal and subcarinal lymph nodes - Echo: EF 70%, no diastolic dysfunction, mild-mod TR, mild-mod pulm HTN (44 mmHg), no pericardial effusion - UDS negative - HIV negative - Rapid flu negative - Mycoplasma negative - ProBNP 1540 - ESR 106 - Trop negative x2 - PAULO negative - SRP Ab negative - Blood Cx no growth - Sputum Cx: yeast species - Bronchial Cx: Ramonita albicans - Bronchoscopy Bx- fibrosis, acute inflammation, emphysematous changes - Bronchoscopy washings: no malignant cells - Duoneb Q4H [facility] - Pulmicort Q12H - Solumedrol 40mg IVP Q6H- tape - Robitussin DM 5 mL PO Q4H PRN - Azithro 500 mg IVPB daily- started 07/09 - Meropenem 1 g Q8H- started 07/20 - Micafungin 100 mg IV daily- started 07/20 - Tylenol 650 mg PO Q6H PRN - Ibuprofen 600 mg PO TID PRN - Tramadol 25 mg PO TID PRN - ICU consulted- does not require critical care at this time - Pulmonology consulted (Chuy)- NC as tolerated, bronchoscopy 07/15 - CT surgery consulted (Adriano)- wedge Bx 07/28 Acute sick euthyroid syndrome - TSH low (0.05, 0.17)- suppression exacerbated by IV steroids - Free T4 wnl/low (1.37, 0.76), tot T4 low (3.24, 3.22), T3 wnl (2.89) - Thyroid Abs negative - Endocrinology consulted (Sav)- serial labs Pancreatic abnormality - CT A/P: Question enlargement of the pancreatic head/uncinate process. It is unclear if this finding is the results of edematous pancreas/mass or collapsed adjacent duodenum which is difficult to distinguish. Recommend follow-up pancreatic CT for further assessment. - Pancreatic CT: Prominence of pancreatic head without discrete mass, likely reflects normal tissue. Recommend f/u in 3-6 months. - Recent weight loss - CEA elevated (6.3), CA 19-9 elevated (215), CA 125 elevated (46.8) - AFP wnl (1.4) - GI consulted (Venessa)- repeat imaging as outpatient Pre-diabetes mellitus, chronic - A1c 5.5 - Hypoglycemic protocol - Accuchecks ACHS with ISS Pulsating abdominal mass- likely palpable due to thin body habitus - Abd u/s: no aortic aneurysm - CT A/P: 2.1 x 2.9 x 3.6 cm aneurysmal dilatation of the distal aorta. Moderate constipation. - Hepatitis panel negative Diarrhea, resolved - C. diff negative Dysuria and flank pain, resolved - UA: 2+ blood, 15 RBC - Urine Cx no growth - CT A/P: no abnormalities noted Ppx: VTE: Heparin 5000 units Q12H GI: PTX 40 mg PO daily Dietary supplements: Ensure Enlive TID, MV daily Code status: DNI Case was discussed with attending, Dr. Wellington. <David Wellington H - Last Filed: 07/26/18 11:09> Objective - Vital Signs/Intake and Output Vital Signs (last 24 hours): Temp Pulse Resp BP Pulse Ox 97.4 F L 91 H 20 135/85 95 07/26/18 07:00 07/26/18 08:20 07/26/18 07:00 07/26/18 07:00 07/26/18 07:00 Intake and Output: 07/26/18 07/26/18 06:59 18:59 Intake Total 860 Output Total 800 Balance 60 - Medications Medications: Current Medications Acetaminophen (Tylenol 325mg Tab) 650 mg PO Q6 PRN PRN Reason: Pain, Mild (1-3) Last Admin: 07/09/18 12:03 Dose: 650 mg Albuterol/Ipratropium (Duoneb 3 Mg/0.5 Mg (3 Ml) Ud) 3 ml INH RQ4 [facility] Last Admin: 07/26/18 07:10 Dose: 3 ml Budesonide (Pulmicort Respules) 0.5 mg INH RQ12 [facility] Last Admin: 07/26/18 07:10 Dose: 0.5 mg Dextrose (Dextrose 50% Inj) 0 ml IV STAT PRN; Protocol PRN Reason: Hypoglycemia Protocol Dextrose (Glutose 15) 0 gm PO ONCE PRN; Protocol PRN Reason: Hypoglycemia Protocol Glucagon (Glucagen Diagnostic Kit) 0 mg IM STAT PRN; Protocol PRN Reason: Hypoglycemia Protocol Guaifenesin/Dextromethorphan (Robitussin Dm) 5 ml PO Q4H PRN PRN Reason: Cough Last Admin: 07/18/18 02:19 Dose: 5 ml Heparin Sodium (Porcine) (Heparin) 5,000 units SC Q12 [facility] Last Admin: 07/26/18 09:29 Dose: 5,000 units Azithromycin 500 mg/ Sodium (Chloride) 250 mls @ 250 mls/hr IVPB DAILY [facility]; Protocol Last Admin: 07/26/18 09:29 Dose: 250 mls/hr Meropenem 1 gm/ Sodium (Chloride) 100 mls @ 100 mls/hr IVPB Q8H [facility]; Protocol Last Admin: 12/16/18 05:31 Dose: 100 mls/hr Micafungin Sodium 100 mg/ (Sodium Chloride) 100 mls @ 100 mls/hr IV Q24H [facility]; Protocol Last Admin: 07/25/18 13:57 Dose: 100 mls/hr Ibuprofen (Motrin Tab) 600 mg PO TID PRN PRN Reason: Pain, moderate (4-7) Last Admin: 07/12/18 17:15 Dose: 600 mg Insulin Human Regular (Novolin R) 0 unit SC ACHS [facility]; Protocol Last Admin: 07/26/18 08:20 Dose: 2 units Methylprednisolone (Solu-Medrol) 40 mg IVP Q6 [facility] Last Admin: 07/26/18 05:31 Dose: 40 mg Multivitamins (Hexavitamin) 1 tab PO DAILY [facility] Last Admin: 07/26/18 09:29 Dose: 1 tab Pantoprazole Sodium (Protonix Ec Tab) 40 mg PO DAILY [facility] Last Admin: 07/26/18 09:29 Dose: 40 mg Tramadol HCl (Ultram) 25 mg PO TID PRN PRN Reason: Pain, severe (8-10) Last Admin: 07/14/18 08:29 Dose: 25 mg - Labs Labs: 07/26/18 08:33 07/26/18 08:33 PT 14.0 SECONDS (9.7-12.2) H 07/14/18 16:22 INR 1.3 07/14/18 16:22 APTT 32 SECONDS (21-34) 07/14/18 16:22 Attending/Attestation - Attestation I have personally seen and examined this patient.: Yes I have fully participated in the care of the patient.: Yes I have reviewed all pertinent clinical information, including history, physical exam and plan: Yes Notes (Text): 07/26/18 11:05 Medical attending: Patient was seen and examined by me earlier this morning. He is using the NRBM a lot. Last night he slept without the bipap. He reports bathroom is ok, however has a lot of coughing. No chest pain, no fever, but reports epigastric area pain when he coughs. The patient is on Micafungin IV for + yeast cultures. Per surgery note the biopsy that was planned on Friday is on hold now. Will need further clarification as to where to proced from here, he remains on solumedrol, pulmicort, nebulizers and is chornically on the NRBM or on Bipap. David Wellington
[2018-07-26] MEDS: Albuterol-Ipratrop 3 mg / 0.5 (3 ml) UD INH SCH ×6 (03:50→19:45)
[2018-07-26] MEDS: Meropenem 1 GM in Sodium Chloride 0.9% 100 ML IVPB SCH ×3 (05:31→20:49)
[2018-07-26] MEDS: MethylPREDNISolone 40 mg Vial IVP SCH ×4 (05:31→23:41)
[2018-07-26] MEDS: Budesonide 0.5 mg/2 ml Inhal Susp UD INH SCH ×2 (07:10→19:45)
[2018-07-26] MEDS: (Novolin R) Insulin Human Regular 100 units/ml vial SC SCH ×4 (08:20→22:10)
[2018-07-26 08:56] LABS: ALB/GLOB RATIO 0.8 (1.0-2.1); ALBUMIN 2.9 g/dL (3.5-5.0); ALT/SGPT 20 U/L (21-72); AST/SGOT 23 U/L (17-59); BLOOD UREA NITROGEN 26 mg/dL (9-20); CALCIUM 8.1 mg/dl (8.6-10.4); GFR NON-AFRICAN AMERICAN > 60
[2018-07-26 09:07] LABS: BASO % 0.1 % (0.0-2.0); HEMOGLOBIN 14.2 g/dL (12.0-18.0); LYMPH # 0.3 K/uL (1.0-4.3); LYMPH % 2.1 % (20.0-40.0); MEAN CELL VOLUME 98.5 fL (80.0-94.0); MEAN CORPUSCULAR HEMOGLOBIN 32.6 pg (27.0-31.0); MEAN CORPUSCULAR HGB CONC 33.1 g/dL (33.0-37.0); MEAN PLATELET VOLUME 9.5 fL (7.2-11.7); MONO # 0.4 K/uL (0.0-0.8); MONO % 2.7 % (0.0-10.0); NEUT # 13.2 K/uL (1.8-7.0); NEUT % 95.1 % (50.0-75.0); PLATELET COUNT 208 K/uL (130-400); RBC 4.36 Mil/uL (4.40-5.90); RED CELL DISTRIBUTION WIDTH 16.2 % (11.5-14.5); WHITE BLOOD COUNT 13.9 K/uL (4.8-10.8)
[2018-07-26] MEDS: Pantoprazole 40 mg EC Tab PO SCH (09:29)
[2018-07-26] MEDS: Multiple Vitamins Tab PO SCH (09:29)
[2018-07-26] MEDS: Azithromycin 500 MG in Sodium Chloride 0.9% 250 ML IVPB SCH (09:29)
[2018-07-26] MEDS: guaiFENesin DM 100 mg-10 mg/5 ml UD PO PRN (11:27)
[2018-07-26 11:30] LABS: ANISOCYTOSIS MODERATE; BANDS 4 % (0-2); LYMPHOCYTE 1 % (20-40); MONOCYTE 1 % (0-10); NEUTROPHIL 94 % (50-75); PLATELET ESTIMATE NORMAL (NORMAL); TOTAL CELLS COUNTED 100
[2018-07-26 11:31] LABS: LARGE PLATELETS PRESENT
[2018-07-26] MEDS: Micafungin 100 MG in Sodium Chloride 0.9% 100 ML IV SCH (14:17)
--- NOTE | 2018-07-26 16:39 | RAD ---
Date of service: 07/26/2018 HISTORY: coughing, history of fibrosis COMPARISON: Comparison is made with 07/16/2028 FINDINGS: LUNGS: No significant interval change. Again noted are diffuse reticular nodular opacities in the lungs. PLEURA: No significant pleural effusion identified, no pneumothorax apparent. CARDIOVASCULAR: No aortic atherosclerotic calcification present. Normal cardiac size. No pulmonary vascular congestion. OSSEOUS STRUCTURES: No significant abnormalities. VISUALIZED UPPER ABDOMEN: Normal. OTHER FINDINGS: None. IMPRESSION: No significant interval changes.
[2018-07-27] MEDS: Albuterol-Ipratrop 3 mg / 0.5 (3 ml) UD INH SCH ×6 (00:10→20:00)
[2018-07-27] MEDS: MethylPREDNISolone 40 mg Vial IVP SCH ×3 (05:23→17:29)
[2018-07-27] MEDS: Meropenem 1 GM in Sodium Chloride 0.9% 100 ML IVPB SCH ×3 (05:27→21:59)
[2018-07-27 07:13] LABS: BASO % 0.2 % (0.0-2.0); HEMOGLOBIN 14.5 g/dL (12.0-18.0); LYMPH # 0.3 K/uL (1.0-4.3); LYMPH % 2.1 % (20.0-40.0); MEAN CELL VOLUME 98.7 fL (80.0-94.0); MEAN CORPUSCULAR HEMOGLOBIN 32.3 pg (27.0-31.0); MEAN CORPUSCULAR HGB CONC 32.7 g/dL (33.0-37.0); MEAN PLATELET VOLUME 9.3 fL (7.2-11.7); MONO # 0.3 K/uL (0.0-0.8); MONO % 2.3 % (0.0-10.0); NEUT # 12.7 K/uL (1.8-7.0); NEUT % 95.4 % (50.0-75.0); NRBC % 0.1 % (0.0-2.0); PLATELET COUNT 177 K/uL (130-400); RED CELL DISTRIBUTION WIDTH 16.1 % (11.5-14.5); WHITE BLOOD COUNT 13.3 K/uL (4.8-10.8)
[2018-07-27 07:23] LABS: INR 1.2; PROTHROMBIN TIME 12.6 SECONDS (9.7-12.2)
[2018-07-27] MEDS: Budesonide 0.5 mg/2 ml Inhal Susp UD INH SCH ×2 (07:33→20:00)
[2018-07-27 08:15] LABS: ALB/GLOB RATIO 0.8 (1.0-2.1); ALBUMIN 2.9 g/dL (3.5-5.0); ALT/SGPT 26 U/L (21-72); AST/SGOT 26 U/L (17-59); BLOOD UREA NITROGEN 31 mg/dL (9-20); CALCIUM 7.9 mg/dl (8.6-10.4); GFR NON-AFRICAN AMERICAN > 60
[2018-07-27] MEDS: (Novolin R) Insulin Human Regular 100 units/ml vial SC SCH ×4 (09:03→21:59)
[2018-07-27] MEDS: Multiple Vitamins Tab PO SCH (09:04)
[2018-07-27] MEDS: Pantoprazole 40 mg EC Tab PO SCH (09:04)
[2018-07-27 09:09] LABS: LYMPHOCYTE 2 % (20-40); MONOCYTE 2 % (0-10); NEUTROPHIL 96 % (50-75); PLATELET ESTIMATE NORMAL (NORMAL); TOTAL CELLS COUNTED 100
[2018-07-27] MEDS: Azithromycin 500 MG in Sodium Chloride 0.9% 250 ML IVPB SCH (09:48)
--- NOTE | 2018-07-27 13:41 | CP.PCM.PN ---
Subjective - Date & Time of Evaluation Date of Evaluation: 07/27/18 Time of Evaluation: 09:00 - Subjective Subjective: Patient seen and examined at bedside, lying down comfortably. Afebrile and in no acute distress. Denies SOB, cough, chest pain, fever. CXR 07/26: No significant interval changes. Discontinue nonrebreather and switch to 50% O2. open lung biopsy canceled because off hypoxemia and respiratory distress awaiting for pulmonary pathology report sent outside Objective - Vital Signs/Intake and Output Vital Signs (last 24 hours): Temp Pulse Resp BP Pulse Ox 97.8 F 100 H 20 130/84 94 L 07/27/18 07:00 07/27/18 07:00 07/27/18 07:00 07/27/18 07:00 07/27/18 07:00 Intake and Output: 07/27/18 07/27/18 06:59 18:59 Intake Total 220 Output Total 400 Balance -180 - Medications Medications: Current Medications Acetaminophen (Tylenol 325mg Tab) 650 mg PO Q6 PRN PRN Reason: Pain, Mild (1-3) Last Admin: 07/09/18 12:03 Dose: 650 mg Albuterol/Ipratropium (Duoneb 3 Mg/0.5 Mg (3 Ml) Ud) 3 ml INH RQ4 SPEEDY Last Admin: 07/27/18 11:13 Dose: 3 ml Budesonide (Pulmicort Respules) 0.5 mg INH RQ12 SPEEDY Last Admin: 07/27/18 07:33 Dose: Not Given Dextrose (Dextrose 50% Inj) 0 ml IV STAT PRN; Protocol PRN Reason: Hypoglycemia Protocol Dextrose (Glutose 15) 0 gm PO ONCE PRN; Protocol PRN Reason: Hypoglycemia Protocol Glucagon (Glucagen Diagnostic Kit) 0 mg IM STAT PRN; Protocol PRN Reason: Hypoglycemia Protocol Guaifenesin/Dextromethorphan (Robitussin Dm) 5 ml PO Q4H PRN PRN Reason: Cough Last Admin: 07/26/18 11:27 Dose: 5 ml Heparin Sodium (Porcine) (Heparin) 5,000 units SC Q12 SPEEDY Last Admin: 07/27/18 09:04 Dose: 5,000 units Azithromycin 500 mg/ Sodium (Chloride) 250 mls @ 250 mls/hr IVPB DAILY SPEEDY; Protocol Last Admin: 07/27/18 09:48 Dose: 250 mls/hr Meropenem 1 gm/ Sodium (Chloride) 100 mls @ 100 mls/hr IVPB Q8H SPEEDY; Protocol Last Admin: 07/27/18 12:15 Dose: 100 mls/hr Micafungin Sodium 100 mg/ (Sodium Chloride) 100 mls @ 100 mls/hr IV Q24H SPE[facility]Y; Protocol Last Admin: 07/26/18 14:17 Dose: 100 mls/hr Ibuprofen (Motrin Tab) 600 mg PO TID PRN PRN Reason: Pain, moderate (4-7) Last Admin: 07/12/18 17:15 Dose: 600 mg Insulin Human Regular (Novolin R) 0 unit SC ACHS SPEEDY; Protocol Last Admin: 07/27/18 12:15 Dose: 8 units Methylprednisolone (Solu-Medrol) 40 mg IVP Q6 SPE[facility]Y Last Admin: 07/27/18 12:14 Dose: 40 mg Multivitamins (Hexavitamin) 1 tab PO DAILY SPEEDY Last Admin: 07/27/18 09:04 Dose: 1 tab Pantoprazole Sodium (Protonix Ec Tab) 40 mg PO DAILY SPE[facility] Last Admin: 07/27/18 09:04 Dose: 40 mg Tramadol HCl (Ultram) 25 mg PO TID PRN PRN Reason: Pain, severe (8-10) Last Admin: 07/14/18 08:29 Dose: 25 mg - Labs Labs: 07/27/18 07:05 07/27/18 07:05 PT 12.6 SECONDS (9.7-12.2) H 07/27/18 07:05 INR 1.2 07/27/18 07:05 APTT 30 SECONDS (21-34) 07/27/18 07:05 Assessment and Plan (1) Pulmonary fibrosis Status: Acute (2) Chronic respiratory failure with hypoxia Status: Acute
[2018-07-27] MEDS: Micafungin 100 MG in Sodium Chloride 0.9% 100 ML IV SCH (14:09)
[2018-07-27] MEDS: Tramadol 25 mg PO PRN (17:28)
--- NOTE | 2018-07-27 18:27 | CP.PCM.PN ---
<Adrian Tarango - Last Filed: 07/27/18 22:41> Subjective - Date & Time of Evaluation Date of Evaluation: 07/27/18 Time of Evaluation: 13:30 - Subjective Subjective: PGY-[address] Ragsdale service Patient is seen and examined by bedside. Patient states he feels short of breath and not well after getting IV antibiotic. Patient is wearing nasal canula on 3L and no longer is wearing nonrebreather mask . Patient continue to feel short of breath mostly when walking from bed to bathroom. Patient denies fevers, chills, chest pain, cough, n/v/d/c or urinary complains. Objective - Vital Signs/Intake and Output Vital Signs (last 24 hours): Temp Pulse Resp BP Pulse Ox 98 F 102 H 20 136/84 96 07/27/18 15:55 07/27/18 15:55 07/27/18 15:55 07/27/18 15:55 07/27/18 15:55 Intake and Output: 07/27/18 07/27/18 06:59 18:59 Intake Total 220 660 Output Total 400 Balance -180 660 - Medications Medications: Current Medications Acetaminophen (Tylenol 325mg Tab) 650 mg PO Q6 PRN PRN Reason: Pain, Mild (1-3) Last Admin: 07/09/18 12:03 Dose: 650 mg Albuterol/Ipratropium (Duoneb 3 Mg/0.5 Mg (3 Ml) Ud) 3 ml INH RQ4 SPEEDY Last Admin: 07/27/18 11:13 Dose: 3 ml Budesonide (Pulmicort Respules) 0.5 mg INH RQ12 SPEEDY Last Admin: 07/27/18 07:33 Dose: Not Given Dextrose (Dextrose 50% Inj) 0 ml IV STAT PRN; Protocol PRN Reason: Hypoglycemia Protocol Dextrose (Glutose 15) 0 gm PO ONCE PRN; Protocol PRN Reason: Hypoglycemia Protocol Glucagon (Glucagen Diagnostic Kit) 0 mg IM STAT PRN; Protocol PRN Reason: Hypoglycemia Protocol Guaifenesin/Dextromethorphan (Robitussin Dm) 5 ml PO Q4H PRN PRN Reason: Cough Last Admin: 07/26/18 11:27 Dose: 5 ml Heparin Sodium (Porcine) (Heparin) 5,000 units SC Q12 SPEEDY Last Admin: 07/27/18 09:04 Dose: 5,000 units Azithromycin 500 mg/ Sodium (Chloride) 250 mls @ 250 mls/hr IVPB DAILY SPE[facility]Y; Protocol Last Admin: 07/27/18 09:48 Dose: 250 mls/hr Meropenem 1 gm/ Sodium (Chloride) 100 mls @ 100 mls/hr IVPB Q8H SPE[facility]Y; Protocol Last Admin: 07/27/18 12:15 Dose: 100 mls/hr Micafungin Sodium 100 mg/ (Sodium Chloride) 100 mls @ 100 mls/hr IV Q24H SPE[facility]Y; Protocol Last Admin: 07/27/18 14:09 Dose: 100 mls/hr Ibuprofen (Motrin Tab) 600 mg PO TID PRN PRN Reason: Pain, moderate (4-7) Last Admin: 07/12/18 17:15 Dose: 600 mg Insulin Human Regular (Novolin R) 0 unit SC ACHS SPEEDY; Protocol Last Admin: 07/27/18 17:28 Dose: 2 units Methylprednisolone (Solu-Medrol) 40 mg IVP Q6 SPEEDY Last Admin: 07/27/18 17:29 Dose: 40 mg Multivitamins (Hexavitamin) 1 tab PO DAILY SPEEDY Last Admin: 07/27/18 09:04 Dose: 1 tab Pantoprazole Sodium (Protonix Ec Tab) 40 mg PO DAILY [facility] Last Admin: 07/27/18 09:04 Dose: 40 mg Tramadol HCl (Ultram) 25 mg PO TID PRN PRN Reason: Pain, severe (8-10) Last Admin: 07/27/18 17:28 Dose: 25 mg - Labs Labs: 07/27/18 07:05 07/27/18 07:05 PT 12.6 SECONDS (9.7-12.2) H 07/27/18 07:05 INR 1.2 07/27/18 07:05 APTT 30 SECONDS (21-34) 07/27/18 07:05 - Constitutional Appears: Non-toxic, No Acute Distress - Head Exam Head Exam: ATRAUMATIC, NORMAL INSPECTION, NORMOCEPHALIC - Eye Exam Eye Exam: EOMI, Normal appearance Pupil Exam: NORMAL ACCOMODATION - ENT Exam ENT Exam: Mucous Membranes Moist, Normal Exam - Neck Exam Neck Exam: Full ROM, Normal Inspection - Respiratory Exam Respiratory Exam: Accessory Muscle Use, Decreased Breath Sounds, Rales. absent: Chest Wall Tenderness - Cardiovascular Exam Cardiovascular Exam: Tachycardia, REGULAR RHYTHM, +S1, +S2. absent: Murmur - GI/Abdominal Exam GI & Abdominal Exam: Soft, Normal Bowel Sounds. absent: Tenderness - Extremities Exam Extremities Exam: Full ROM, Normal Inspection - Back Exam Back Exam: NORMAL INSPECTION - Neurological Exam Neurological Exam: Alert, Awake, Normal Gait, Oriented x3 - Psychiatric Exam Psychiatric exam: Normal Affect, Normal Mood - Skin Skin Exam: Dry, Intact, Normal Color, Warm Assessment and Plan - Assessment and Plan (Free Text) Plan: Interstitial pulmonary fibrosis- suspect interstitial lung disease due to smoking and/or exposures, r/o cancer, r/o TB (homeless, from [place], no BCG vaccine) - Ruled out TB- off isolation - BiPAP as needed, NC @ 3-4 L, discontinued nonrebreather and switch to 50% O2. - continue to be Afebrile - CT head: no acute findings - CTA head/neck: no significant stenoses or abnormalities - CXR: peripheral interstitial and to lesser extent confluent changes bilaterally likely chronic in nature - CT chest: Findings consistent with diffuse significant interstitial fibrosis with what probably represents paraseptal emphysematous changes and bronchiectasis. There are scattered areas of confluent and ground-glass opacities. Calcified granuloma right lung base. There are mildly enlarged paratracheal and subcarinal lymph nodes - Echo: EF 70%, no diastolic dysfunction, mild-mod TR, mild-mod pulm HTN (44 mmHg), no pericardial effusion - UDS negative - HIV negative - Rapid flu negative - Mycoplasma negative - ProBNP 1540 - ESR 106 - Trop negative x2 - PAULO negative - SRP Ab negative - Blood Cx no growth - Sputum Cx: yeast species - Bronchial Cx: Ramonita albicans - Bronchoscopy Bx- fibrosis, acute inflammation, emphysematous changes - Bronchoscopy washings: no malignant cells Cxray 07/26 - no significant interval changes Meds: - Duoneb Q4H SPEEDY - Pulmicort Q12H - Solumedrol 40mg IVP Q6H- tape - Robitussin DM 5 mL PO Q4H PRN - Azithro 500 mg IVPB daily- started 07/09 - Meropenem 1 g Q8H- started 07/20 - Micafungin 100 mg IV daily- started 07/20 - Tylenol 650 mg PO Q6H PRN - Ibuprofen 600 mg PO TID PRN - Tramadol 25 mg PO TID PRN - Pulmonology consulted (Chuy)- open lung biopsy canceled because off hypoxemia and respiratory distress, awaiting for pulmonary pathology report sent outside Acute sick euthyroid syndrome - TSH low (0.05, 0.17)- suppression exacerbated by IV steroids - Free T4 wnl/low (1.37, 0.76), tot T4 low (3.24, 3.22), T3 wnl (2.89) - Thyroid Abs negative - Endocrinology consulted (Sav)- serial labs Pancreatic abnormality - CT A/P: Question enlargement of the pancreatic head/uncinate process. It is unclear if this finding is the results of edematous pancreas/mass or collapsed adjacent duodenum which is difficult to distinguish. Recommend follow-up pancreatic CT for further assessment. - Pancreatic CT: Prominence of pancreatic head without discrete mass, likely reflects normal tissue. Recommend f/u in 3-6 months. - Recent weight loss - CEA elevated (6.3), CA 19-9 elevated (215), CA 125 elevated (46.8) - AFP wnl (1.4) - GI consulted (Venessa)- repeat imaging as outpatient Pre-diabetes mellitus, chronic - A1c 5.5 - Hypoglycemic protocol - Accuchecks ACHS with ISS Ppx: VTE: Heparin 5000 units Q12H GI: PTX 40 mg PO daily Dietary supplements: Ensure Enlive TID, MV daily, HHD Plan discussed with Adrian Fregoso, PGY-1 <Aj Ragsdale - Last Filed: 07/28/18 15:55> Objective - Vital Signs/Intake and Output Vital Signs (last 24 hours): Temp Pulse Resp BP Pulse Ox 97.8 F 110 H 20 147/90 100 07/28/18 15:38 07/28/18 15:38 07/28/18 15:38 07/28/18 15:38 07/28/18 15:38 Intake and Output: 07/28/18 07/28/18 06:59 18:59 Output Total 300 Balance -300 - Medications Medications: Current Medications Acetaminophen (Tylenol 325mg Tab) 650 mg PO Q6 PRN PRN Reason: Pain, Mild (1-3) Last Admin: 07/09/18 12:03 Dose: 650 mg Albuterol/Ipratropium (Duoneb 3 Mg/0.5 Mg (3 Ml) Ud) 3 ml INH RQ4 SPEEDY Last Admin: 07/28/18 12:05 Dose: 3 ml Budesonide (Pulmicort Respules) 0.5 mg INH RQ12 SPEEDY Last Admin: 07/28/18 07:49 Dose: 0.5 mg Dextrose (Dextrose 50% Inj) 0 ml IV STAT PRN; Protocol PRN Reason: Hypoglycemia Protocol Dextrose (Glutose 15) 0 gm PO ONCE PRN; Protocol PRN Reason: Hypoglycemia Protocol Glucagon (Glucagen Diagnostic Kit) 0 mg IM STAT PRN; Protocol PRN Reason: Hypoglycemia Protocol Guaifenesin/Dextromethorphan (Robitussin Dm) 5 ml PO Q4H PRN PRN Reason: Cough Last Admin: 07/26/18 11:27 Dose: 5 ml Heparin Sodium (Porcine) (Heparin) 5,000 units SC Q12 SPEEDY Last Admin: 07/28/18 09:33 Dose: 5,000 units Azithromycin 500 mg/ Sodium (Chloride) 250 mls @ 250 mls/hr IVPB DAILY SPEEDY; Pro tocol Last Admin: 07/28/18 09:33 Dose: 250 mls/hr Meropenem 1 gm/ Sodium (Chloride) 100 mls @ 100 mls/hr IVPB Q8H SPEEDY; Protocol Last Admin: 07/28/18 13:26 Dose: 100 mls/hr Micafungin Sodium 100 mg/ (Sodium Chloride) 100 mls @ 100 mls/hr IV Q24H SPEEDY; Protocol Last Admin: 07/28/18 14:38 Dose: 100 mls/hr Ibuprofen (Motrin Tab) 600 mg PO TID PRN PRN Reason: Pain, moderate (4-7) Last Admin: 07/12/18 17:15 Dose: 600 mg Insulin Human Regular (Novolin R) 0 unit SC ACHS SPEEDY; Protocol Last Admin: 07/28/18 11:56 Dose: 6 units Methylprednisolone (Solu-Medrol) 40 mg IVP Q6 SPEEDY Last Admin: 07/28/18 11:56 Dose: 40 mg Multivitamins (Hexavitamin) 1 tab PO DAILY [facility] Last Admin: 07/28/18 09:33 Dose: 1 tab Pantoprazole Sodium (Protonix Ec Tab) 40 mg PO DAILY [facility] Last Admin: 07/28/18 09:33 Dose: 40 mg Tramadol HCl (Ultram) 25 mg PO TID PRN PRN Reason: Pain, severe (8-10) Last Admin: 07/27/18 17:28 Dose: 25 mg - Labs Labs: 07/28/18 07:20 07/28/18 07:20 PT 12.6 SECONDS (9.7-12.2) H 07/27/18 07:05 INR 1.2 07/27/18 07:05 APTT 30 SECONDS (21-34) 07/27/18 07:05 Attending/Attestation - Attestation I have personally seen and examined this patient.: Yes I have fully participated in the care of the patient.: Yes I have reviewed all pertinent clinical information, including history, physical exam and plan: Yes Notes (Text): PATIENT STATES THAT HE IS COMFORTABLE WITH NONREBREATHER. BECOME SOB WITH NC. ENCOURAGED TO AVOID NONREBREAHER .PATIENT WANTS TO USE BIPAP PER RN HE GET SOB AND BECOME HYPOXIC WHEN HE WALK TO BATHROOM. WE WILL FOLLOW OUTSIDE PATH REPORT/SEND OUT BRONCHOSCOPIC BIOPSY TO [facility] NO PLAN FOR OPEN BIOPSY
[2018-07-28] MEDS: Albuterol-Ipratrop 3 mg / 0.5 (3 ml) UD INH SCH ×6 (00:30→20:30)
[2018-07-28] MEDS: MethylPREDNISolone 40 mg Vial IVP SCH ×4 (01:09→17:06)
[2018-07-28] MEDS: Meropenem 1 GM in Sodium Chloride 0.9% 100 ML IVPB SCH ×3 (04:28→20:59)
[2018-07-28 07:40] LABS: BASO % 0.2 % (0.0-2.0); HEMOGLOBIN 15.6 g/dL (12.0-18.0); LYMPH # 0.2 K/uL (1.0-4.3); LYMPH % 1.7 % (20.0-40.0); MEAN CELL VOLUME 98.6 fL (80.0-94.0); MEAN CORPUSCULAR HEMOGLOBIN 32.1 pg (27.0-31.0); MEAN CORPUSCULAR HGB CONC 32.6 g/dL (33.0-37.0); MEAN PLATELET VOLUME 9.4 fL (7.2-11.7); MONO # 0.3 K/uL (0.0-0.8); MONO % 1.8 % (0.0-10.0); NEUT # 13.8 K/uL (1.8-7.0); NEUT % 96.3 % (50.0-75.0); PLATELET COUNT 196 K/uL (130-400); RBC 4.85 Mil/uL (4.40-5.90); RED CELL DISTRIBUTION WIDTH 16.2 % (11.5-14.5); WHITE BLOOD COUNT 14.4 K/uL (4.8-10.8)
[2018-07-28] MEDS: Budesonide 0.5 mg/2 ml Inhal Susp UD INH SCH ×2 (07:49→20:30)
[2018-07-28 08:16] LABS: ALB/GLOB RATIO 0.8 (1.0-2.1); ALT/SGPT 30 U/L (21-72); AST/SGOT 36 U/L (17-59); BLOOD UREA NITROGEN 30 mg/dL (9-20); CALCIUM 8.2 mg/dl (8.6-10.4); GFR NON-AFRICAN AMERICAN > 60
[2018-07-28] MEDS: (Novolin R) Insulin Human Regular 100 units/ml vial SC SCH ×4 (08:38→21:02)
[2018-07-28 08:42] LABS: LYMPHOCYTE 1 % (20-40); MONOCYTE 1 % (0-10); NEUTROPHIL 98 % (50-75); PLATELET ESTIMATE NORMAL (NORMAL); TOTAL CELLS COUNTED 100
[2018-07-28] MEDS: Azithromycin 500 MG in Sodium Chloride 0.9% 250 ML IVPB SCH (09:33)
[2018-07-28] MEDS: Pantoprazole 40 mg EC Tab PO SCH (09:33)
[2018-07-28] MEDS: Multiple Vitamins Tab PO SCH (09:33)
--- NOTE | 2018-07-28 13:10 | CP.PCM.PN ---
<Adrian Tarango - Last Filed: 07/28/18 17:52> Subjective - Date & Time of Evaluation Date of Evaluation: 07/28/18 Time of Evaluation: 09:20 - Subjective Subjective: PGY-[address] Ragsdale service Patient is seen and examined sitting in chair. Patient states feeling well today, but continues to feel short of breath. Patient admits to having dry cough at times. States he has difficulty with breathing when walking from bed to bathroom. Patient denies fever, chills, chest pain, abdominal pain, n/v/d/c, urinary symptoms or leg swelling/pain. Objective - Vital Signs/Intake and Output Vital Signs (last 24 hours): Temp Pulse Resp BP Pulse Ox 97.4 F L 109 H 20 145/93 H 99 07/28/18 08:00 07/28/18 12:07 07/28/18 08:00 07/28/18 08:00 07/28/18 08:00 Intake and Output: 07/28/18 07/28/18 06:59 18:59 Output Total 300 Balance -300 - Medications Medications: Current Medications Acetaminophen (Tylenol 325mg Tab) 650 mg PO Q6 PRN PRN Reason: Pain, Mild (1-3) Last Admin: 07/09/18 12:03 Dose: 650 mg Albuterol/Ipratropium (Duoneb 3 Mg/0.5 Mg (3 Ml) Ud) 3 ml INH RQ4 SPEEDY Last Admin: 07/28/18 12:05 Dose: 3 ml Budesonide (Pulmicort Respules) 0.5 mg INH RQ12 SPEEDY Last Admin: 07/28/18 07:49 Dose: 0.5 mg Dextrose (Dextrose 50% Inj) 0 ml IV STAT PRN; Protocol PRN Reason: Hypoglycemia Protocol Dextrose (Glutose 15) 0 gm PO ONCE PRN; Protocol PRN Reason: Hypoglycemia Protocol Glucagon (Glucagen Diagnostic Kit) 0 mg IM STAT PRN; Protocol PRN Reason: Hypoglycemia Protocol Guaifenesin/Dextromethorphan (Robitussin Dm) 5 ml PO Q4H PRN PRN Reason: Cough Last Admin: 07/26/18 11:27 Dose: 5 ml Heparin Sodium (Porcine) (Heparin) 5,000 units SC Q12 [facility]EDY Last Admin: 07/28/18 09:33 Dose: 5,000 units Azithromycin 500 mg/ Sodium (Chloride) 250 mls @ 250 mls/hr IVPB DAILY [facility]; Protocol Last Admin: 07/28/18 09:33 Dose: 250 mls/hr Meropenem 1 gm/ Sodium (Chloride) 100 mls @ 100 mls/hr IVPB Q8H SPEEDY; Protocol Last Admin: 07/28/18 04:28 Dose: 100 mls/hr Micafungin Sodium 100 mg/ (Sodium Chloride) 100 mls @ 100 mls/hr IV Q24H SPEEDY; Protocol Last Admin: 07/27/18 14:09 Dose: 100 mls/hr Ibuprofen (Motrin Tab) 600 mg PO TID PRN PRN Reason: Pain, moderate (4-7) Last Admin: 07/12/18 17:15 Dose: 600 mg Insulin Human Regular (Novolin R) 0 unit SC ACHS SPEEDY; Protocol Last Admin: 07/28/18 11:56 Dose: 6 units Methylprednisolone (Solu-Medrol) 40 mg IVP Q6 SPEEDY Last Admin: 07/28/18 11:56 Dose: 40 mg Multivitamins (Hexavitamin) 1 tab PO DAILY [facility] Last Admin: 07/28/18 09:33 Dose: 1 tab Pantoprazole Sodium (Protonix Ec Tab) 40 mg PO DAILY [facility] Last Admin: 07/28/18 09:33 Dose: 40 mg Tramadol HCl (Ultram) 25 mg PO TID PRN PRN Reason: Pain, severe (8-10) Last Admin: 07/27/18 17:28 Dose: 25 mg - Labs Labs: 07/28/18 07:20 07/28/18 07:20 PT 12.6 SECONDS (9.7-12.2) H 07/27/18 07:05 INR 1.2 07/27/18 07:05 APTT 30 SECONDS (21-34) 07/27/18 07:05 - Constitutional Appears: Non-toxic, No Acute Distress - Head Exam Head Exam: ATRAUMATIC, NORMAL INSPECTION, NORMOCEPHALIC - Eye Exam Eye Exam: EOMI, Normal appearance, PERRL Pupil Exam: NORMAL ACCOMODATION - ENT Exam ENT Exam: Mucous Membranes Moist, Normal Exam - Neck Exam Neck Exam: Full ROM, Normal Inspection - Respiratory Exam Respiratory Exam: Accessory Muscle Use, Decreased Breath Sounds, Rales, Rhonchi - Cardiovascular Exam Cardiovascular Exam: Tachycardia, REGULAR RHYTHM, +S1, +S2 - GI/Abdominal Exam GI & Abdominal Exam: Soft, Normal Bowel Sounds. absent: Distended, Guarding, Rigid, Tenderness - Extremities Exam Extremities Exam: Full ROM, Normal Inspection. absent: Calf Tenderness, Pedal Edema, Tenderness - Back Exam Back Exam: Full ROM, NORMAL INSPECTION - Neurological Exam Neurological Exam: Alert, Awake, Oriented x3 - Psychiatric Exam Psychiatric exam: Normal Affect, Normal Mood - Skin Skin Exam: Dry, Intact, Normal Color, Warm Assessment and Plan - Assessment and Plan (Free Text) Plan: Plan: Interstitial pulmonary fibrosis- suspect interstitial lung disease due to smoking and/or exposures, r/o cancer, r/o TB (homeless, from [place], no BCG vaccine) - BiPAP as needed, NC @ 3-4 L - continue to be Afebrile, WBC 14.4 today from 13.3 - CXR: peripheral interstitial and to lesser extent confluent changes mateo aterally likely chronic in nature - CT chest: Findings consistent with diffuse significant interstitial fibrosis with what probably represents paraseptal emphysematous changes and bronchiectasis. There are scattered areas of confluent and ground-glass opacities. Calcified granuloma right lung base. There are mildly enlarged paratracheal and subcarinal lymph nodes - Echo: EF 70%, no diastolic dysfunction, mild-mod TR, mild-mod pulm HTN (44 mmHg), no pericardial effusion - UDS negative - HIV negative - Rapid flu negative - Mycoplasma negative - ProBNP 1540 - ESR 106 - Trop negative x2 - PAULO negative - SRP Ab negative - Blood Cx no growth - Sputum Cx: yeast species - Bronchial Cx: Ramonita albicans - Bronchoscopy Bx- fibrosis, acute inflammation, emphysematous changes - Bronchoscopy washings: no malignant cells Cxray 07/26 - no significant interval changes Meds: - Duoneb Q4H SPEEDY - Pulmicort Q12H - Solumedrol 40mg IVP Q6H- tape - Robitussin DM 5 mL PO Q4H PRN - Azithro 500 mg IVPB daily- started 07/09 - Meropenem 1 g Q8H- started 07/20 - Micafungin 100 mg IV daily- started 07/20 - Tylenol 650 mg PO Q6H PRN - Ibuprofen 600 mg PO TID PRN - Tramadol 25 mg PO TID PRN - Pulmonology consulted (Chuy)- open lung biopsy canceled because off hypoxemia and respiratory distress - Will follow pathology reports, pathology sample sent 07/23/18 to [facility] pathology , Dr Muniz - Infectious disease consult - Dr Ritter - will follow up his rec regarding continuation of current IV antibiotics Acute sick euthyroid syndrome - TSH low (0.05, 0.17)- suppression exacerbated by IV steroids - Free T4 wnl/low (1.37, 0.76), tot T4 low (3.24, 3.22), T3 wnl (2.89) - Thyroid Abs negative - Endocrinology consulted (Cam)- serial labs Pancreatic abnormality - CT A/P: Question enlargement of the pancreatic head/uncinate process. It is unclear if this finding is the results of edematous pancreas/mass or collapsed adjacent duodenum which is difficult to distinguish. Recommend follow-up p ancreatic CT for further assessment. - Pancreatic CT: Prominence of pancreatic head without discrete mass, likely reflects normal tissue. Recommend f/u in 3-6 months. - Recent weight loss - CEA elevated (6.3), CA 19-9 elevated (215), CA 125 elevated (46.8) - AFP wnl (1.4) - GI consulted (Venessa)- repeat imaging as outpatient Pre-diabetes mellitus, chronic - A1c 5.5 - Hypoglycemic protocol - Accuchecks ACHS with ISS Ppx: VTE: Heparin 5000 units Q12H GI: PTX 40 mg PO daily Dietary supplements: Ensure Enlive TID, MV daily, HHD Palliative care consult - Hope Robles - discussion about Advance directive - help is appreciated Plan discussed with Adrian Fregoso, PGY-1 <Aj Ragsdale - Last Filed: 07/29/18 09:19> Objective - Vital Signs/Intake and Output Vital Signs (last 24 hours): Temp Pulse Resp BP Pulse Ox 97.4 F L 106 H 20 130/92 H 96 07/29/18 07:00 07/29/18 07:00 07/29/18 07:00 07/29/18 07:00 07/29/18 07:00 Intake and Output: 12/19/18 12/19/18 06:59 18:59 Intake Total 100 Output Total 600 Balance -500 - Medications Medications: Current Medications Acetaminophen (Tylenol 325mg Tab) 650 mg PO Q6 PRN PRN Reason: Pain, Mild (1-3) Last Admin: 07/09/18 12:03 Dose: 650 mg Albuterol/Ipratropium (Duoneb 3 Mg/0.5 Mg (3 Ml) Ud) 3 ml INH RQ4 SPEEDY Last Admin: 07/29/18 07:15 Dose: 3 ml Budesonide (Pulmicort Respules) 0.5 mg INH RQ12 SPEEDY Last Admin: 07/28/18 20:30 Dose: 0.5 mg Dextrose (Dextrose 50% Inj) 0 ml IV STAT PRN; Protocol PRN Reason: Hypoglycemia Protocol Dextrose (Glutose 15) 0 gm PO ONCE PRN; Protocol PRN Reason: Hypoglycemia Protocol Glucagon (Glucagen Diagnostic Kit) 0 mg IM STAT PRN; Protocol PRN Reason: Hypoglycemia Protocol Guaifenesin/Dextromethorphan (Robitussin Dm) 5 ml PO Q4H PRN PRN Reason: Cough Last Admin: 07/26/18 11:27 Dose: 5 ml Heparin Sodium (Porcine) (Heparin) 5,000 units SC Q12 SPEEDY Last Admin: 07/28/18 21:01 Dose: 5,000 units Azithromycin 500 mg/ Sodium (Chloride) 250 mls @ 250 mls/hr IVPB DAILY [facility]; Protocol Last Admin: 07/28/18 09:33 Dose: 250 mls/hr Meropenem 1 gm/ Sodium (Chloride) 100 mls @ 100 mls/hr IVPB Q8H SPEEDY; Protocol Last Admin: 07/29/18 04:59 Dose: 100 mls/hr Micafungin Sodium 100 mg/ (Sodium Chloride) 100 mls @ 100 mls/hr IV Q24H SPEEDY; Protocol Last Admin: 07/28/18 14:38 Dose: 100 mls/hr Ibuprofen (Motrin Tab) 600 mg PO TID PRN PRN Reason: Pain, moderate (4-7) Last Admin: 07/12/18 17:15 Dose: 600 mg Insulin Human Regular (Novolin R) 0 unit SC ACHS SPEEDY; Protocol Last Admin: 07/29/18 08:11 Dose: 4 units Methylprednisolone (Solu-Medrol) 40 mg IVP Q6 SPEEDY Last Admin: 07/29/18 05:00 Dose: 40 mg Multivitamins (Hexavitamin) 1 tab PO DAILY [facility] Last Admin: 07/28/18 09:33 Dose: 1 tab Pantoprazole Sodium (Protonix Ec Tab) 40 mg PO DAILY [facility] Last Admin: 07/28/18 09:33 Dose: 40 mg Tramadol HCl (Ultram) 25 mg PO TID PRN PRN Reason: Pain, severe (8-10) Last Admin: 07/27/18 17:28 Dose: 25 mg - Labs Labs: 07/28/18 07:20 07/28/18 07:20 PT 12.6 SECONDS (9.7-12.2) H 07/27/18 07:05 INR 1.2 07/27/18 07:05 APTT 30 SECONDS (21-34) 07/27/18 07:05 Attending/Attestation - Attestation I have personally seen and examined this patient.: Yes I have fully participated in the care of the patient.: Yes I have reviewed all pertinent clinical information, including history, physical exam and plan: Yes Notes (Text): patient is not doing well,needed BIPAP daytime Has severe pulmonary fibrosis. Poor prognosis Patient is aware of his condition He wants to be comfortable. HE state that he doesn't want to be kept on MV .Requesting for comfort medical management to make him to fell better if there is no hope for cure. Denies depression. Not in touch with his family including with his . He state that he is .Has no friends in [place]
[2018-07-28] MEDS: Micafungin 100 MG in Sodium Chloride 0.9% 100 ML IV SCH (14:38)
[2018-07-29] MEDS: Albuterol-Ipratrop 3 mg / 0.5 (3 ml) UD INH SCH ×7 (00:55→23:49)
[2018-07-29] MEDS: MethylPREDNISolone 40 mg Vial IVP SCH ×4 (00:57→17:09)
[2018-07-29] MEDS: Meropenem 1 GM in Sodium Chloride 0.9% 100 ML IVPB SCH ×3 (04:59→21:16)
--- NOTE | 2018-07-29 06:55 | CP.PCM.PN ---
<Walter Alberts - Last Filed: 07/29/18 12:47> Subjective - Date & Time of Evaluation Date of Evaluation: 07/29/18 Time of Evaluation: 06:54 - Subjective Subjective: PGY-1 Medicine Progress Note for Dr. Ragsdale Patient seen and examined at bedside, using NRB mask. No acute overnight events reported overnight. Patient continues to have intermittent sob and is assisted with NRB mask O2, nebs, steroids. Dry cough improving. Conversation was had about overall prognosis and having a point of contact. Patient states he has a strained relationship with his family, does not wish to have anyone contacted. Of note, patient was previously DNI but is now DNR/DNI. Patient is homeless and undocumented in the [place], living in a friend's garage. Support was provided and we will continue to monitor. No fevers/chills, chest pain, palpitations, abdominal pain, n/v/d/c, dysuria, or leg swelling/pain. Objective - Vital Signs/Intake and Output Vital Signs (last 24 hours): Temp Pulse Resp BP Pulse Ox 98.6 F 98 H 20 131/90 97 07/28/18 23:00 07/29/18 00:55 07/28/18 23:00 07/28/18 23:00 07/28/18 23:00 Intake and Output: 07/28/18 07/29/18 18:59 06:59 Intake Total 100 Output Total 600 Balance -500 - Medications Medications: Current Medications Acetaminophen (Tylenol 325mg Tab) 650 mg PO Q6 PRN PRN Reason: Pain, Mild (1-3) Last Admin: 07/09/18 12:03 Dose: 650 mg Albuterol/Ipratropium (Duoneb 3 Mg/0.5 Mg (3 Ml) Ud) 3 ml INH RQ4 [facility] Last Admin: 07/29/18 04:20 Dose: 3 ml Budesonide (Pulmicort Respules) 0.5 mg INH RQ12 [facility] Last Admin: 07/28/18 20:30 Dose: 0.5 mg Dextrose (Dextrose 50% Inj) 0 ml IV STAT PRN; Protocol PRN Reason: Hypoglycemia Protocol Dextrose (Glutose 15) 0 gm PO ONCE PRN; Protocol PRN Reason: Hypoglycemia Protocol Glucagon (Glucagen Diagnostic Kit) 0 mg IM STAT PRN; Protocol PRN Reason: Hypoglycemia Protocol Guaifenesin/Dextromethorphan (Robitussin Dm) 5 ml PO Q4H PRN PRN Reason: Cough Last Admin: 07/26/18 11:27 Dose: 5 ml Heparin Sodium (Porcine) (Heparin) 5,000 units SC Q12 [facility] Last Admin: 07/28/18 21:01 Dose: 5,000 units Azithromycin 500 mg/ Sodium (Chloride) 250 mls @ 250 mls/hr IVPB DAILY [facility]; P rotocol Last Admin: 07/28/18 09:33 Dose: 250 mls/hr Meropenem 1 gm/ Sodium (Chloride) 100 mls @ 100 mls/hr IVPB Q8H [facility]; Protocol Last Admin: 07/29/18 04:59 Dose: 100 mls/hr Micafungin Sodium 100 mg/ (Sodium Chloride) 100 mls @ 100 mls/hr IV Q24H [facility]; Protocol Last Admin: 07/28/18 14:38 Dose: 100 mls/hr Ibuprofen (Motrin Tab) 600 mg PO TID PRN PRN Reason: Pain, moderate (4-7) Last Admin: 07/12/18 17:15 Dose: 600 mg Insulin Human Regular (Novolin R) 0 unit SC ACHS [facility]; Protocol Last Admin: 07/28/18 21:02 Dose: Not Given Methylprednisolone (Solu-Medrol) 40 mg IVP Q6 [facility] Last Admin: 07/29/18 05:00 Dose: 40 mg Multivitamins (Hexavitamin) 1 tab PO DAILY [facility] Last Admin: 07/28/18 09:33 Dose: 1 tab Pantoprazole Sodium (Protonix Ec Tab) 40 mg PO DAILY [facility] Last Admin: 07/28/18 09:33 Dose: 40 mg Tramadol HCl (Ultram) 25 mg PO TID PRN PRN Reason: Pain, severe (8-10) Last Admin: 07/27/18 17:28 Dose: 25 mg - Labs Labs: 07/28/18 07:20 07/28/18 07:20 PT 12.6 SECONDS (9.7-12.2) H 07/27/18 07:05 INR 1.2 07/27/18 07:05 APTT 30 SECONDS (21-34) 07/27/18 07:05 - Constitutional Appears: No Acute Distress, Chronically Ill - Head Exam Head Exam: ATRAUMATIC, NORMAL INSPECTION, NORMOCEPHALIC - Eye Exam Eye Exam: EOMI, Normal appearance, PERRL - ENT Exam ENT Exam: Mucous Membranes Moist, Normal Exam - Neck Exam Neck Exam: Full ROM, Normal Inspection - Respiratory Exam Respiratory Exam: Accessory Muscle Use, Decreased Breath Sounds, Rales - Cardiovascular Exam Cardiovascular Exam: Tachycardia, +S1, +S2 - GI/Abdominal Exam GI & Abdominal Exam: Soft, Normal Bowel Sounds. absent: Distended, Firm, Guarding, Rigid, Tenderness, Rebound - Extremities Exam Extremities Exam: Full ROM, Normal Capillary Refill, Normal Inspection. absent: Calf Tenderness, Pedal Edema - Neurological Exam Neurological Exam: Alert, Awake, Oriented x3 - Skin Skin Exam: Dry, Intact, Normal Color, Warm Assessment and Plan - Assessment and Plan (Free Text) Assessment: 63 year old Thai M with PMHx of prediabetes and hypotension presenting with worsening SOB with associated productive cough and chest pain on exertion x 15 days. Severe interstitial lung disease suspected due to smoking history and occupational exposure. Plan: Interstitial pulmonary fibrosis -patient has history of tobacco use and environmental exposure from work -patient is from [facility], homeless, no BC vaccine -continues to be afebrile, WBC 13 (07/29) -discouraged from using 100% O2 as it will suppress respiratory drive - BiPAP as needed, NC @ 3-4 L -AFB sputum culture x 3 negative, isolation precautions d/c'd -UDS negative -HIV negative -Rapid flu negative -Mycoplasma negative -ProBNP 1540 -ESR 106 -Trop negative x2 -PAULO negative -SRP Ab negative -Blood Cx no growth -Sputum Cx: yeast species -Bronchial Cx: Ramonita albicans -Bronchoscopy Biopsy: fibrosis, acute inflammation, emphysematous changes -Bronchoscopy washings: no malignant cells -CXR: peripheral interstitial and to lesser extent confluent changes bilaterally likely chronic in nature -Repeat CXR (07/26): no significant interval changes -CT chest: Findings consistent with diffuse significant interstitial fibrosis with what probably represents paraseptal emphysematous changes and bronchiectasis. There are scattered areas of confluent and ground-glass opa cities. Calcified granuloma right lung base. There are mildly enlarged paratracheal and subcarinal lymph nodes -Echo: EF 70%, no diastolic dysfunction, mild-mod TR, mild-mod pulm HTN (44 mmHg), no pericardial effusion - Duoneb Q4H [facility] - Pulmicort Q12H - Solumedrol 40mg IVP Q6H- tape - Robitussin DM 5 mL PO Q4H PRN - Azithromycin 500 mg IVPB daily - Meropenem 1 g Q8H - Micafungin 100 mg IV daily - Tylenol 650 mg PO Q6H PRN - Ibuprofen 600 mg PO TID PRN - Tramadol 25 mg PO TID PRN - Pulmonology recs (Dr. Vera) appreciated -open lung biopsy cancelled because of hypoxemia and respiratory distress -f/u pulmonary pathology report sent to [facility]: , Dr Muniz - f/u further ID recs (Dr. Ritter) re: continuation of current IV antibiotics Acute sick euthyroid syndrome - TSH low (0.05, 0.17)- suppression exacerbated by IV steroids - Free T4 wnl/low (1.37, 0.76), tot T4 low (3.24, 3.22), T3 wnl (2.89) - Thyroid Abs negative - Endocrinology recs (Dr Ang) appreciated -serial labs Pancreatic abnormality -patient with estimated 10 kg unintentional weight loss in last two years - CEA elevated (6.3), CA 19-9 elevated (215), CA 125 elevated (46.8) - AFP wnl (1.4) - CT abdomen/pelvis: Question enlargement of the pancreatic head/uncinate process. It is unclear if this finding is the results of edematous pancreas/mass or collapsed adjacent duodenum which is difficult to distinguish. Recommend follow-up pancreatic CT for further assessment. - Pancreatic CT: Prominence of pancreatic head without discrete mass, likely reflects normal tissue. Recommend f/u in 3-6 months. -GI recs appreciated (Dr. Clifford) -no acute intervention -repeat imaging as outpatient Pre-diabetes mellitus, chronic - A1c 5.5 - ISS -accuchecks ACHS -hypoglycemic protocol PPx, Diet, Disposition -DVT ppx: heparin 5000 units Q12H -GI ppx: protonix 40 mg PO daily - Diet: dietary supplements: Ensure Enlive TID, MV daily, HHD -Disposition: prognosis is guarded. Palliative care on board. Code status discussed, now DNR/DNI. Case discussed with Dr. Jn Alberts DO, PGY-1 <Aj Ragsdale - Last Filed: 07/29/18 14:24> Objective - Vital Signs/Intake and Output Vital Signs (last 24 hours): Temp Pulse Resp BP Pulse Ox 97.4 F L 106 H 20 130/92 H 96 07/29/18 07:00 07/29/18 07:10 07/29/18 07:00 07/29/18 07:00 07/29/18 07:00 Intake and Output: 07/29/18 07/29/18 06:59 18:59 Intake Total 100 Output Total 600 Balance -500 - Medications Medications: Current Medications Acetaminophen (Tylenol 325mg Tab) 650 mg PO Q6 PRN PRN Reason: Pain, Mild (1-3) Last Admin: 07/09/18 12:03 Dose: 650 mg Albuterol/Ipratropium (Duoneb 3 Mg/0.5 Mg (3 Ml) Ud) 3 ml INH RQ4 [facility] Last Admin: 07/29/18 13:10 Dose: 3 ml Dextrose (Dextrose 50% Inj) 0 ml IV STAT PRN; Protocol PRN Reason: Hypoglycemia Protocol Dextrose (Glutose 15) 0 gm PO ONCE PRN; Protocol PRN Reason: Hypoglycemia Protocol Glucagon (Glucagen Diagnostic Kit) 0 mg IM STAT PRN; Protocol PRN Reason: Hypoglycemia Protocol Guaifenesin/Dextromethorphan (Robitussin Dm) 5 ml PO Q4H PRN PRN Reason: Cough Last Admin: 07/26/18 11:27 Dose: 5 ml Heparin Sodium (Porcine) (Heparin) 5,000 units SC Q12 [facility] Last Admin: 07/29/18 10:33 Dose: 5,000 units Azithromycin 500 mg/ Sodium (Chloride) 250 mls @ 250 mls/hr IVPB DAILY [facility]; Protocol Last Admin: 07/29/18 10:32 Dose: 250 mls/hr Meropenem 1 gm/ Sodium (Chloride) 100 mls @ 100 mls/hr IVPB Q8H [facility]; Protocol Last Admin: 07/29/18 12:22 Dose: 100 mls/hr Micafungin Sodium 100 mg/ (Sodium Chloride) 100 mls @ 100 mls/hr IV Q24H [facility]; Protocol Last Admin: 07/28/18 14:38 Dose: 100 mls/hr Ibuprofen (Motrin Tab) 600 mg PO TID PRN PRN Reason: Pain, moderate (4-7) Last Admin: 07/12/18 17:15 Dose: 600 mg Insulin Human Regular (Novolin R) 0 unit SC ACHS [facility]; Protocol Last Admin: 07/29/18 12:21 Dose: 4 units Methylprednisolone (Solu-Medrol) 80 mg IVP Q6 [facility] Multivitamins (Hexavitamin) 1 tab PO DAILY [facility] Last Admin: 07/29/18 10:33 Dose: 1 tab Pantoprazole Sodium (Protonix Ec Tab) 40 mg PO DAILY [facility] Last Admin: 07/29/18 10:33 Dose: 40 mg Tramadol HCl (Ultram) 25 mg PO TID PRN PRN Reason: Pain, severe (8-10) Last Admin: 07/27/18 17:28 Dose: 25 mg - Labs Labs: 07/29/18 10:58 07/29/18 10:58 PT 12.6 SECONDS (9.7-12.2) H 07/27/18 07:05 INR 1.2 07/27/18 07:05 APTT 30 SECONDS (21-34) 07/27/18 07:05 Attending/Attestation - Attestation I have personally seen and examined this patient.: Yes I have fully participated in the care of the patient.: Yes I have reviewed all pertinent clinical information, including history, physical exam and plan: Yes Notes (Text): seen and examined He says fells little better this morning. He spoke to Jocelyn. He states that he doesn't want to suffer long if there is no cure for his condition. Patient admitted to Jocelyn that he wants to get treatment to feels better but not want to be on MV and doesn't want CPR . we will continue steroid and antibiotics D/W Dr Vera avoid 100% oxygen.patient's prognosis is poor He states that he is not in touch with his family or friends. His daughter and is in [place] and they don't want to involve in his care.
[2018-07-29] MEDS: Budesonide 0.5 mg/2 ml Inhal Susp UD INH SCH (07:15)
[2018-07-29] MEDS: (Novolin R) Insulin Human Regular 100 units/ml vial SC SCH ×4 (08:11→22:18)
[2018-07-29] MEDS: Azithromycin 500 MG in Sodium Chloride 0.9% 250 ML IVPB SCH (10:32)
[2018-07-29] MEDS: Multiple Vitamins Tab PO SCH (10:33)
[2018-07-29] MEDS: Pantoprazole 40 mg EC Tab PO SCH (10:33)
--- NOTE | 2018-07-29 10:54 | CP.PCM.CON ---
History of Present Illness - History of Present Illness History of Present Illness: Palliative consult requested by Doctor Jn for goals of care discussion Patient is a 63 yo male admitted with dizziness while walking on the street. Patient brought in to [facility] by some bystander . Upon arriving to ED p atient collapsed on the floor and [facility] was called . Patient was successfully revived and admitted for futher diagnostic studies. Patient admitted having productive cough with some thick sputm X 15 days. He also noticed decrease in appetite and weight loss for about 10 lb over last 2 weeks. CXR significant for chronic changes. CT chest confirmed severe fibrosis and calcified granuloma to right base. Patient is post bronchoscopy abd cytology of bronchial washing was negative malignant cells. Open lung Bx was postponed due to Hypotension. At present patient is assisted with Nonrebrither mask O2, on neb Tx, Solu Medrol and IV antibiotics for + sputum culture. PMH: CT, DM Soc. Hx: Patient is homeless and undocumented in the [place], lives in friend's garage, has no job,Admits to alcohol abuse until 1 month ago, quit smoking 1 month ago, has no ties with family in [facility]. Hx: Mother and father in their 70' from [place] Review of Systems - Constitutional Constitutional: Malaise, Weight Loss - EENT Eyes: absent: As Per HPI, Blind Spots, Blurred Vision, Change in Vision, Decreas ed Night Vision, Diplopia, Discharge, Dry Eye, Exophthalmos, Floaters, Irritation, Itchy Eyes, Loss of Peripheral Vision, Pain, Photophobia, Requires Corrective Lenses, Sees Flashes, Spots in Vision, Tunnel Vision, Other Visual Disturbances, Loss of Vision, Other Ears: absent: As Per HPI, Decreased Hearing, Ear Discharge, Ear Pain, Tinnitus, Abnormal Hearing, Disequilibrium, Dizziness, Other Nose/Mouth/Throat: absent: As Per HPI, Epistaxis, Nasal Congestion, Nasal Discharge, Nasal Obstruction, Nasal Trauma, Nose Pain, Post Nasal Drip, Sinus Pain, Sinus Pressure, Bleeding Gums, Change in Voice, Dental Pain, Dry Mouth, Dysphagia, Halitosis, Hoarsness, Lip Swelling, Mouth Lesions, Mouth Pain, Odynophagia, Sore Throat, Throat Swelling, Tongue Swelling, Facial Pain, Neck Pain, Neck Mass, Other - Cardiovascular Cardiovascular: Dyspnea, Dyspnea on Exertion - Respiratory Respiratory: Dyspnea on Exertion - Gastrointestinal Gastrointestinal: absent: As Per HPI, Abdominal Pain, Belching, Bloating, Change in Bowel Habits, Change in Stool Character, Coffee Ground Emesis, Constipation, Cramping, Diarrhea, Dyspepsia, Dysphagia, Early Satiety, Excessive Flatus, Fecal Incontinence, Heartburn, Hematemesis, Hematochezia, Loose Stools, Melena, Nausea, Odynophagia, Temesmus, Vomiting, Other - Genitourinary Genitourinary: absent: As Per HPI, Change in Urinary Stream, Difficulty Urinating, Dysuria, Flank Pain, Hematuria, Pyuria, Nocturia, Urinary Incontinence, Urinary Frequency, Urinary Hesitance, Urinary Urgency, Voiding Freq/Small Amts, Freq UTI, Hx Renal/Bladder Calculi, Hx /Renal Surgery, Bladder Distension, Other - Musculoskeletal Musculoskeletal: Myalgias - Integumentary Integumentary: Dry Skin - Neurological Neurological: absent: As Per HPI, Abnormal Gait, Abnormal Hearing, Abnormal Movements, Abnormal Speech, Behavioral Changes, Burning Sensations, Confusion, Convulsions, Disequilibrium, Dizziness, Numbness, Focal Weakness, Frequent Falls, Headaches, Lack of Coordination, Loss of Vision, Memory Loss, Paresthesias, Radicular Pain, Restless Legs, Sensory Deficit, Syncope, Tingling, Tremor, Vertigo, Weakness, Other Visual Disturbances, Other - Psychiatric Psychiatric: Change in Appetite, Depression - Endocrine Endocrine: absent: As Per HPI, Change in Body Appearance, Change in Libido, Cold Intolorance, Deepening of Voice, Excessive Sweating, Fatigue, Flushing, Heat Intolorance, Increase in Ring/Shoe/Hat Size, Palpitations, Polydipsia, Polyphagia, Polyuria, Other - Hematologic/Lymphatic Hematologic: absent: As Per HPI, Easy Bleeding, Easy Bruising, Lymphadenopathy, Other Past Patient History - Past Medical History & Family History Past Family History: Reviewed and not pertinent - Past Social History Smoking Status: Former Smoker - CARDIAC Hx Hypotension: Yes - MUSCULOSKELETAL/RHEUMATOLOGICAL Hx Falls: Yes - PSYCHIATRIC Hx Substance Use: No - SURGICAL HISTORY Hx Surgeries: Yes Other/Comment: peptic ulcer surgery - ANESTHESIA Hx Anesthesia: No Hx Anesthesia Reactions: No Meds Allergies/Adverse Reactions: Allergies Allergy/AdvReac Type Severity Reaction Status Date / Time No Known Allergies Allergy Unverified 07/08/18 15:44 - Medications Medications: Current Medications Acetaminophen (Tylenol 325mg Tab) 650 mg PO Q6 PRN PRN Reason: Pain, Mild (1-3) Last Admin: 07/09/18 12:03 Dose: 650 mg Albuterol/Ipratropium (Duoneb 3 Mg/0.5 Mg (3 Ml) Ud) 3 ml INH RQ4 [facility] Last Admin: 07/29/18 07:15 Dose: 3 ml Budesonide (Pulmicort Respules) 0.5 mg INH RQ12 [facility] Last Admin: 07/28/18 20:30 Dose: 0.5 mg Dextrose (Dextrose 50% Inj) 0 ml IV STAT PRN; Protocol PRN Reason: Hypoglycemia Protocol Dextrose (Glutose 15) 0 gm PO ONCE PRN; Protocol PRN Reason: Hypoglycemia Protocol Glucagon (Glucagen Diagnostic Kit) 0 mg IM STAT PRN; Protocol PRN Reason: Hypoglycemia Protocol Guaifenesin/Dextromethorphan (Robitussin Dm) 5 ml PO Q4H PRN PRN Reason: Cough Last Admin: 07/26/18 11:27 Dose: 5 ml Heparin Sodium (Porcine) (Heparin) 5,000 units SC Q12 [facility] Last Admin: 07/29/18 10:33 Dose: 5,000 units Azithromycin 500 mg/ Sodium (Chloride) 250 mls @ 250 mls/hr IVPB DAILY [facility]; Protocol Last Admin: 07/29/18 10:32 Dose: 250 mls/hr Meropenem 1 gm/ Sodium (Chloride) 100 mls @ 100 mls/hr IVPB Q8H [facility]; Protocol Last Admin: 07/29/18 04:59 Dose: 100 mls/hr Micafungin Sodium 100 mg/ (Sodium Chloride) 100 mls @ 100 mls/hr IV Q24H [facility]; Protocol Last Admin: 07/28/18 14:38 Dose: 100 mls/hr Ibuprofen (Motrin Tab) 600 mg PO TID PRN PRN Reason: Pain, moderate (4-7) Last Admin: 07/12/18 17:15 Dose: 600 mg Insulin Human Regular (Novolin R) 0 unit SC ACHS [facility]; Protocol Last Admin: 07/29/18 08:11 Dose: 4 units Methylprednisolone (Solu-Medrol) 40 mg IVP Q6 [facility] Last Admin: 07/29/18 05:00 Dose: 40 mg Multivitamins (Hexavitamin) 1 tab PO DAILY [facility] Last Admin: 07/29/18 10:33 Dose: 1 tab Pantoprazole Sodium (Protonix Ec Tab) 40 mg PO DAILY [facility] Last Admin: 07/29/18 10:33 Dose: 40 mg Tramadol HCl (Ultram) 25 mg PO TID PRN PRN Reason: Pain, severe (8-10) Last Admin: 07/27/18 17:28 Dose: 25 mg Physical Exam - Constitutional Appears: Chronically Ill - Head Exam Head Exam: ATRAUMATIC, NORMAL INSPECTION, NORMOCEPHALIC - Eye Exam Eye Exam: EOMI, Normal appearance, PERRL Pupil Exam: NORMAL ACCOMODATION, PERRL - ENT Exam ENT Exam: Mucous Membranes Moist, Normal Exam - Neck Exam Neck exam: Positive for: Normal Inspection - Respiratory Exam Respiratory Exam: Decreased Breath Sounds, Prolonged Expiratory Phase, Respiratory Distress - Cardiovascular Exam Cardiovascular Exam: Tachycardia, Irregular Rhythm - GI/Abdominal Exam GI & Abdominal Exam: Normal Bowel Sounds, Soft - Rectal Exam Rectal Exam: Deferred - Extremities Exam Extremities exam: Positive for: pedal pulses present - Back Exam Back exam: NORMAL INSPECTION - Neurological Exam Neurological exam: Alert, Normal Gait, Oriented x3, Reflexes Normal - Skin Skin Exam: Dry, Intact, Warm Results - Vital Signs Recent Vital Signs: Last Vital Signs Temp 97.4 F L 07/29/18 07:00 Pulse 106 H 07/29/18 07:00 Resp 20 07/29/18 07:00 BP 130/92 H 07/29/18 07:00 Pulse Ox 96 07/29/18 07:00 - Labs Result Diagrams: 07/28/18 07:20 07/28/18 07:20 Labs: Laboratory Results - last 24 hr 07/20/18 07/28/18 07/28/18 07:35 11:04 16:23 POC Glucose (mg/dL) 342 H 179 H A1AT Mutation See note 07/28/18 07/29/18 21:22 06:14 POC Glucose (mg/dL) 317 H 251 H A1AT Mutation Assessment & Plan - Assessment and Plan (Free Text) Assessment: Palliative consult DNI, POLST on chart, PPS 30 % I reviewed Medical records, all diagnostic studies, examined and interviewed patient in the bed Patient is alert, oriented X 3 with affect that is depressed and speech clear. Skin is dry, especially to lower extremities. Patient admits to SOB while walking shoert distnaces. Breathing is shallow and fast. O2Sat 96 % with O2 on. Admits to dry , non productive cough. RR fast. Denies chest pain upon caughing. HR 102, ST. Abdomen soft. Tolerates diet well. WBC 14.4, Hb 15.6 BP 130/92, HR 106, afebrile Goals of care discussed. I reviewed patient's clinical presentation and elicited his understanding of it. Patient verbalized understanding about Diagnosis of pulmonary fibrosis. I offered more information about the diagnosis and asked what were his concerns and expectations of this hospitalization. Patient admitted concerns about lack of support with ADLs. He understands , as homeless man he will have to go to a half-way. At present he lives in friend's garage with out regular meals and in cold environment. Patient voiced concerns about lack of knowledge regarding shelters location and protocol to get in. I offred assistance from our SS and he gladly accepted it. Code status discussed. I questioned his wishes in case his condition becomes more severe and how aggressive treatment he would want to receive. I helped him understand the roles of heart and lungs in case his sam stops. I explained in details the CPR . Patient further elaborated on his wishes for end of life care. His main concern was suffering. He wanted to undergo all ordinary medical measures including the lung Bx. If his condition worsens and his heart stops, or breathing become unable to support with non invasive O 2 pressure, than he would like to be allowed Natural . POL introduced and signed by the patient. I shared this with Doctor Jn and nursing staff. Impression * Chronically ill male with acute SOB * Dyspnea on excretion * Lack of housing * lack of family support * Psychosocial distress related to above * Fear for own existence * Prefers Natural with out aggressive interventions if his heart should stop Suggestions * Continue O2 supply and Neb Tx * Assist with ADLs * Use O2 while ambulates * SS to assist with information about half-way placement and Jacquelin care * DNR/DNI Patient is looking forward lung Bx when more stable. palliative care will remain available as needed to offer support to this very unfortunate man. Advance care planing 50 min
[2018-07-29 11:58] LABS: BASO % 0.3 % (0.0-2.0); LYMPH # 0.2 K/uL (1.0-4.3); LYMPH % 1.9 % (20.0-40.0); MEAN CORPUSCULAR HEMOGLOBIN 32.7 pg (27.0-31.0); MEAN PLATELET VOLUME 9.1 fL (7.2-11.7); MONO # 0.4 K/uL (0.0-0.8); MONO % 2.7 % (0.0-10.0); NEUT # 12.3 K/uL (1.8-7.0); NEUT % 95.1 % (50.0-75.0); PLATELET COUNT 175 K/uL (130-400); RBC 4.58 Mil/uL (4.40-5.90); RED CELL DISTRIBUTION WIDTH 16.3 % (11.5-14.5)
[2018-07-29 12:10] LABS: ALB/GLOB RATIO 0.8 (1.0-2.1); ALBUMIN 2.8 g/dL (3.5-5.0); ALT/SGPT 28 U/L (21-72); AST/SGOT 37 U/L (17-59); BLOOD UREA NITROGEN 34 mg/dL (9-20); CALCIUM 8.1 mg/dl (8.6-10.4); GFR NON-AFRICAN AMERICAN > 60
[2018-07-29 12:23] LABS: LYMPHOCYTE 1 % (20-40); MONOCYTE 3 % (0-10); NEUTROPHIL 96 % (50-75); PLATELET ESTIMATE NORMAL (NORMAL); TOTAL CELLS COUNTED 100
[2018-07-29] MEDS: Micafungin 100 MG in Sodium Chloride 0.9% 100 ML IV SCH (14:18)
--- NOTE | 2018-07-29 15:13 | CP.PCM.PN ---
Subjective - Date & Time of Evaluation Date of Evaluation: 07/29/18 Time of Evaluation: 14:00 - Subjective Subjective: 63 year old male with Interstitial pulmonary fibrosis. CXR 07/26 showed no interval changes. Reports shortness of breath intermittently and dry cough. Denies Fever, chest pain. Currently homeless living in [facility], evaluated by palliative care, DNR/DNI. PE: Patient seen and examined at bedside, lying down, on NRB. Afebrile and in no acute distress. HR: 107 BP: 145/93 WBC: 13.0 H Na 134, K 5.1, Cl: 94 L, CO2: 37 H, BUN: 34 H, Cr: 0.5 L, Glucose: 359 H, Ca: 8.1 L Open lung biopsy canceled because of hypoxemia and respiratory distress. pulmonary pathology report from outside pathologist consistent with pulmonary fibrosis/organizing pneumonia with superimposed infection Continue duoneb and increase dose of steroids Continue antibiotics Continue BiPAP prognosis poor Objective - Vital Signs/Intake and Output Vital Signs (last 24 hours): Temp Pulse Resp BP Pulse Ox 97.4 F L 106 H 20 130/92 H 96 07/29/18 07:00 07/29/18 07:10 07/29/18 07:00 07/29/18 07:00 07/29/18 07:00 Intake and Output: 07/29/18 07/29/18 06:59 18:59 Intake Total 100 Output Total 600 Balance -500 - Medications Medications: Current Medications Acetaminophen (Tylenol 325mg Tab) 650 mg PO Q6 PRN PRN Reason: Pain, Mild (1-3) Last Admin: 07/09/18 12:03 Dose: 650 mg Albuterol/Ipratropium (Duoneb 3 Mg/0.5 Mg (3 Ml) Ud) 3 ml INH RQ4 [facility] Last Admin: 07/29/18 13:10 Dose: 3 ml Dextrose (Dextrose 50% Inj) 0 ml IV STAT PRN; Protocol PRN Reason: Hypoglycemia Protocol Dextrose (Glutose 15) 0 gm PO ONCE PRN; Protocol PRN Reason: Hypoglycemia Protocol Glucagon (Glucagen Diagnostic Kit) 0 mg IM STAT PRN; Protocol PRN Reason: Hypoglycemia Protocol Guaifenesin/Dextromethorphan (Robitussin Dm) 5 ml PO Q4H PRN PRN Reason: Cough Last Admin: 07/26/18 11:27 Dose: 5 ml Heparin Sodium (Porcine) (Heparin) 5,000 units SC Q12 [facility] Last Admin: 07/29/18 10:33 Dose: 5,000 units Azithromycin 500 mg/ Sodium (Chloride) 250 mls @ 250 mls/hr IVPB DAILY [facility]; Protocol Last Admin: 07/29/18 10:32 Dose: 250 mls/hr Meropenem 1 gm/ Sodium (Chloride) 100 mls @ 100 mls/hr IVPB Q8H [facility]; Protocol Last Admin: 07/29/18 12:22 Dose: 100 mls/hr Micafungin Sodium 100 mg/ (Sodium Chloride) 100 mls @ 100 mls/hr IV Q24H [facility]; Protocol Last Admin: 07/29/18 14:18 Dose: 100 mls/hr Ibuprofen (Motrin Tab) 600 mg PO TID PRN PRN Reason: Pain, moderate (4-7) Last Admin: 07/12/18 17:15 Dose: 600 mg Insulin Human Regular (Novolin R) 0 unit SC ACHS [facility]; Protocol Last Admin: 07/29/18 12:21 Dose: 4 units Methylprednisolone (Solu-Medrol) 80 mg IVP Q6 [facility] Multivitamins (Hexavitamin) 1 tab PO DAILY [facility] Last Admin: 07/29/18 10:33 Dose: 1 tab Pantoprazole Sodium (Protonix Ec Tab) 40 mg PO DAILY [facility] Last Admin: 07/29/18 10:33 Dose: 40 mg Tramadol HCl (Ultram) 25 mg PO TID PRN PRN Reason: Pain, severe (8-10) Last Admin: 07/27/18 17:28 Dose: 25 mg - Labs Labs: 07/29/18 10:58 07/29/18 10:58 PT 12.6 SECONDS (9.7-12.2) H 07/27/18 07:05 INR 1.2 07/27/18 07:05 APTT 30 SECONDS (21-34) 07/27/18 07:05 Assessment and Plan (1) Pulmonary fibrosis Status: Acute (2) Chronic respiratory failure with hypoxia Status: Acute
[2018-07-29 17:01] LABS: BASO # 0.1 K/uL (0.0-0.2); BASO % 0.4 % (0.0-2.0); HEMOGLOBIN 15.3 g/dL (12.0-18.0); LYMPH # 0.3 K/uL (1.0-4.3); LYMPH % 1.8 % (20.0-40.0); MEAN CELL VOLUME 98.4 fL (80.0-94.0); MEAN CORPUSCULAR HEMOGLOBIN 31.8 pg (27.0-31.0); MEAN CORPUSCULAR HGB CONC 32.3 g/dL (33.0-37.0); MEAN PLATELET VOLUME 9.8 fL (7.2-11.7); MONO # 0.2 K/uL (0.0-0.8); MONO % 1.6 % (0.0-10.0); NEUT # 13.8 K/uL (1.8-7.0); NEUT % 96.2 % (50.0-75.0); PLATELET COUNT 172 K/uL (130-400); RBC 4.82 Mil/uL (4.40-5.90); RED CELL DISTRIBUTION WIDTH 16.2 % (11.5-14.5); WHITE BLOOD COUNT 14.4 K/uL (4.8-10.8)
[2018-07-29 17:38] LABS: ALB/GLOB RATIO 0.8 (1.0-2.1); ALBUMIN 2.9 g/dL (3.5-5.0); ALT/SGPT 27 U/L (21-72); AST/SGOT 37 U/L (17-59); BLOOD UREA NITROGEN 31 mg/dL (9-20); CALCIUM 8.1 mg/dl (8.6-10.4); GFR NON-AFRICAN AMERICAN > 60
[2018-07-29 17:56] LABS: BANDS 1 % (0-2); LYMPHOCYTE 2 % (20-40); MONOCYTE 1 % (0-10); NEUTROPHIL 96 % (50-75); PLATELET ESTIMATE NORMAL (NORMAL); TOTAL CELLS COUNTED 100
[2018-07-30] MEDS: MethylPREDNISolone 40 mg Vial IVP SCH ×4 (00:21→17:25)
[2018-07-30] MEDS: Albuterol-Ipratrop 3 mg / 0.5 (3 ml) UD INH SCH ×5 (03:16→20:09)
[2018-07-30] MEDS: Meropenem 1 GM in Sodium Chloride 0.9% 100 ML IVPB SCH ×3 (05:39→21:28)
--- NOTE | 2018-07-30 06:50 | CP.PCM.PN ---
<Adrian Tarango - Last Filed: 07/30/18 17:14> Subjective - Date & Time of Evaluation Date of Evaluation: 07/30/18 Time of Evaluation: 06:50 - Subjective Subjective: PGY-[address] Ragsdale service Patient is seen and examined at bedside. Patient reports no acute events overnight. Patient states feeling well this morning, reporting having "on and off" shortness of breath, currently using nonrebreather mask. Patient uses 10 minutes of the mask, and takes it off, as he wants to try to breath without it. Patient reports walking to the bathroom with no problem. Patient continues to use BIPAP machine at night time. Patient tolerates food. Denies fever, chills, chest pain, shortness of breath, abdominal pain, nausea, vomiting, constipation, diarrhea, leg swelling or pain, or urinary symptoms. Objective - Vital Signs/Intake and Output Vital Signs (last 24 hours): Temp Pulse Resp BP Pulse Ox 97.3 F L 80 20 117/83 98 07/29/18 23:00 07/29/18 23:49 07/29/18 23:00 07/29/18 23:00 07/29/18 23:00 Intake and Output: 07/29/18 07/30/18 18:59 06:59 Intake Total 580 Output Total 700 Balance -120 - Medications Medications: Current Medications Acetaminophen (Tylenol 325mg Tab) 650 mg PO Q6 PRN PRN Reason: Pain, Mild (1-3) Last Admin: 07/09/18 12:03 Dose: 650 mg Albuterol/Ipratropium (Duoneb 3 Mg/0.5 Mg (3 Ml) Ud) 3 ml INH RQ4 [facility] Last Admin: 07/30/18 03:16 Dose: 3 ml Dextrose (Dextrose 50% Inj) 0 ml IV STAT PRN; Protocol PRN Reason: Hypoglycemia Protocol Dextrose (Glutose 15) 0 gm PO ONCE PRN; Protocol PRN Reason: Hypoglycemia Protocol Glucagon (Glucagen Diagnostic Kit) 0 mg IM STAT PRN; Protocol PRN Reason: Hypoglycemia Protocol Guaifenesin/Dextromethorphan (Robitussin Dm) 5 ml PO Q4H PRN PRN Reason: Cough Last Admin: 07/26/18 11:27 Dose: 5 ml Heparin Sodium (Porcine) (Heparin) 5,000 units SC Q12 [facility] Last Admin: 07/29/18 22:17 Dose: 5,000 units Meropenem 1 gm/ Sodium (Chloride) 100 mls @ 100 mls/hr IVPB Q8H [facility]; Protocol Last Admin: 07/30/18 05:39 Dose: 100 mls/hr Micafungin Sodium 100 mg/ (Sodium Chloride) 100 mls @ 100 mls/hr IV Q24H [facility]; Protocol Last Admin: 07/29/18 14:18 Dose: 100 mls/hr Ibuprofen (Motrin Tab) 600 mg PO TID PRN PRN Reason: Pain, moderate (4-7) Last Admin: 07/12/18 17:15 Dose: 600 mg Insulin Human Regular (Novolin R) 0 unit SC ACHS [facility]; Protocol Last Admin: 07/29/18 22:18 Dose: 3 units Methylprednisolone (Solu-Medrol) 80 mg IVP Q6 [facility] Last Admin: 07/30/18 05:40 Dose: 80 mg Multivitamins (Hexavitamin) 1 tab PO DAILY [facility] Last Admin: 07/29/18 10:33 Dose: 1 tab Pantoprazole Sodium (Protonix Ec Tab) 40 mg PO DAILY [facility] Last Admin: 07/29/18 10:33 Dose: 40 mg Tramadol HCl (Ultram) 25 mg PO TID PRN PRN Reason: Pain, severe (8-10) Last Admin: 07/27/18 17:28 Dose: 25 mg - Labs Labs: 07/29/18 16:51 07/29/18 16:51 PT 12.6 SECONDS (9.7-12.2) H 07/27/18 07:05 INR 1.2 07/27/18 07:05 APTT 30 SECONDS (21-34) 07/27/18 07:05 - Constitutional Appears: Non-toxic, No Acute Distress, Chronically Ill - Head Exam Head Exam: ATRAUMATIC, NORMAL INSPECTION, NORMOCEPHALIC - Eye Exam Eye Exam: EOMI, Normal appearance, PERRL - ENT Exam ENT Exam: Mucous Membranes Moist, Normal Exam - Neck Exam Neck Exam: Full ROM, Normal Inspection - Respiratory Exam Respiratory Exam: Accessory Muscle Use, Rales. absent: Respiratory Distress - Cardiovascular Exam Cardiovascular Exam: Tachycardia, REGULAR RHYTHM, +S1, +S2 - GI/Abdominal Exam GI & Abdominal Exam: Soft, Normal Bowel Sounds. absent: Distended, Guarding, Tenderness - Extremities Exam Extremities Exam: Full ROM, Normal Inspection. absent: Calf Tenderness, Pedal Edema, Tenderness - Back Exam Back Exam: Full ROM, NORMAL INSPECTION - Neurological Exam Neurological Exam: Alert, Awake, CN II-XII Intact, Oriented x3 - Psychiatric Exam Psychiatric exam: Normal Affect, Normal Mood - Skin Skin Exam: Dry, Intact, Normal Color, Warm Assessment and Plan - Assessment and Plan (Free Text) Plan: Interstitial pulmonary fibrosis -patient has history of tobacco use and environmental exposure from work -patient is from [place], homeless, no BC vaccine -continues to be afebrile(97F), stable @ WBC 13.8 (07/29) - BiPAP as needed, nonrebreather mask at 15% -AFB sputum culture x 3 negative, isolation precautions d/c'd -UDS negative -HIV negative -Rapid flu negative -Mycoplasma negative -ProBNP 1540 -ESR 106 -Trop negative x2 -PAULO negative -SRP Ab negative -Blood Cx no growth -Sputum Cx: yeast species -Bronchial Cx: Ramonita albicans -Bronchoscopy Biopsy: fibrosis, acute inflammation, emphysematous changes -Bronchoscopy washings: no malignant cells Pathology report done at [facility] from right lower lobe, bronchoscopic biopsy - Acute and organizing diffuse alveolar damage with minimal patchy scarring in no particular pattern - interstitial fibrosis, emphysematous change and acute inflammation - radiological correlation and wedge biopsy may be helpful in classification. -CXR: peripheral interstitial and to lesser extent confluent changes bilaterally likely chronic in nature -Repeat CXR (07/26): no significant interval changes -CT chest: Findings consistent with diffuse significant interstitial fibrosis with what probably represents paraseptal emphysematous changes and bronchiectasis. There are scattered areas of confluent and ground-glass opacities. Calcified granuloma right lung base. There are mildly enlarged pa ratracheal and subcarinal lymph nodes -Echo: EF 70%, no diastolic dysfunction, mild-mod TR, mild-mod pulm HTN (44 mmHg), no pericardial effusion - Duoneb Q4H [facility] - Solumedrol 80 mg IVP Q6H - Robitussin DM 5 mL PO Q4H PRN - Meropenem 1 g Q8H - Micafungin 100 mg IV daily - Tylenol 650 mg PO Q6H PRN - Ibuprofen 600 mg PO TID PRN - Tramadol 25 mg PO TID PRN - Pulmonology recs (Dr. Vera) appreciated -open lung biopsy cancelled because of hypoxemia and respiratory distress - Continue duoneb and increase dose of steroids - Continue antibiotics - Continue BiPAP - one dose of lasix 40mg IVP x one - f/u further ID recs (Dr. Ritter) re: continuation of current IV antibiotics - Meropenem Q8, micafungin Q24 - will continue to monitor patient's vital signs and symptoms. Acute sick euthyroid syndrome - TSH low (0.05, 0.17)- suppression exacerbated by IV steroids - Free T4 wnl/low (1.37, 0.76), tot T4 low (3.24, 3.22), T3 wnl (2.89) - Thyroid Abs negative - Endocrinology recs (Dr Ang) appreciated -serial labs Pancreatic abnormality -patient with estimated 10 kg unintentional weight loss in last two years - CEA elevated (6.3), CA 19-9 elevated (215), CA 125 elevated (46.8) - AFP wnl (1.4) - CT abdomen/pelvis: Question enlargement of the pancreatic head/uncinate process. It is unclear if this finding is the results of edematous pancreas/mass or collapsed adjacent duodenum which is difficult to distinguish. Recommend follow-up pancreatic CT for further assessment. - Pancreatic CT: Prominence of pancreatic head without discrete mass, likely reflects normal tissue. Recommend f/u in 3-6 months. -GI recs appreciated (Dr. Clifford) -no acute intervention -repeat imaging as outpatient Pre-diabetes mellitus, chronic - A1c 5.5 - ISS -accuchecks ACHS -hypoglycemic protocol PPx, Diet, Disposition -DVT ppx: heparin 5000 units Q12H -GI ppx: protonix 40 mg PO daily - pain control with tylenol (mild pain), ibuprofen (moderate pain), Ultram (severe pain) - Diet: dietary supplements: Ensure Enlive TID, MV daily, HHD -palliative care consult - Continue O2 supply and Neb Tx Assist with ADLs Use O2 while ambulates SS to assist with information about [facility] placement and [facility] care DNR/DNI - Physical therapy consult - eval and treat for patient sob when ambulating, patient desires to try to walk longer distances. - OT therapy - eval ability for patient to perform ADLs. Plan discussed with Dr Jn Tarango, PGY-1 <Aj Ragsdale - Last Filed: 07/31/18 19:48> Objective - Vital Signs/Intake and Output Vital Signs (last 24 hours): Temp Pulse Resp BP Pulse Ox 97.7 F 115 H 20 132/85 100 07/31/18 15:20 07/31/18 15:20 07/31/18 15:20 07/31/18 15:20 07/31/18 15:20 - Medications Medications: Current Medications Acetaminophen (Tylenol 325mg Tab) 650 mg PO Q6 PRN PRN Reason: Pain, Mild (1-3) Last Admin: 07/09/18 12:03 Dose: 650 mg Acetaminophen/Codeine Phosphate (Tylenol/Codeine 300 Mg/30 Mg) 1 ea PO HS [facility] Albuterol/Ipratropium (Duoneb 3 Mg/0.5 Mg (3 Ml) Ud) 3 ml INH RQ4 [facility] Last Admin: 07/31/18 19:00 Dose: 3 ml Dextrose (Dextrose 50% Inj) 0 ml IV STAT PRN; Protocol PRN Reason: Hypoglycemia Protocol Dextrose (Glutose 15) 0 gm PO ONCE PRN; Protocol PRN Reason: Hypoglycemia Protocol Glucagon (Glucagen Diagnostic Kit) 0 mg IM STAT PRN; Protocol PRN Reason: Hypoglycemia Protocol Guaifenesin/Dextromethorphan (Robitussin Dm) 5 ml PO Q4H PRN PRN Reason: Cough Last Admin: 07/26/18 11:27 Dose: 5 ml Heparin Sodium (Porcine) (Heparin) 5,000 units SC Q12 [facility] Last Admin: 07/31/18 09:14 Dose: 5,000 units Meropenem 1 gm/ Sodium (Chloride) 100 mls @ 100 mls/hr IVPB Q8H [facility]; Protocol Last Admin: 07/31/18 12:33 Dose: 100 mls/hr Acyclovir 500 mg/ Sodium (Chloride) 100 mls @ 100 mls/hr IV Q8H [facility]; Protocol Last Admin: 07/31/18 17:48 Dose: 100 mls/hr Trimethoprim/Sulfamethoxazole (250 mg/ Dextrose) 500 mls @ 333.333 mls/hr IVPB Q6H [facility] Last Admin: 07/31/18 14:16 Dose: 333.333 mls/hr Ibuprofen (Motrin Tab) 600 mg PO TID PRN PRN Reason: Pain, moderate (4-7) Last Admin: 07/12/18 17:15 Dose: 600 mg Insulin Glargine (Lantus) 10 unit SC HS [facility] Insulin Human Regular (Novolin R) 0 unit SC ACHS [facility]; Protocol Last Admin: 07/31/18 17:44 Dose: 10 units Methylprednisolone (Solu-Medrol) 80 mg IVP Q6 [facility] Last Admin: 07/31/18 17:44 Dose: 80 mg Multivitamins (Hexavitamin) 1 tab PO DAILY [facility] Last Admin: 07/31/18 09:14 Dose: 1 tab Mycophenolate Mofetil (Cellcept) 500 mg PO BID [facility] Pantoprazole Sodium (Protonix Ec Tab) 40 mg PO DAILY [facility] Last Admin: 07/31/18 09:14 Dose: 40 mg Tramadol HCl (Ultram) 25 mg PO TID PRN PRN Reason: Pain, severe (8-10) Last Admin: 07/27/18 17:28 Dose: 25 mg Zolpidem Tartrate (Ambien) 5 mg PO HS PRN PRN Reason: Insomnia - Labs Labs: 07/31/18 14:12 07/31/18 14:12 PT 12.6 SECONDS (9.7-12.2) H 07/27/18 07:05 INR 1.2 07/27/18 07:05 APTT 30 SECONDS (21-34) 07/27/18 07:05 Attending/Attestation - Attestation I have personally seen and examined this patient.: Yes I have fully participated in the care of the patient.: Yes I have reviewed all pertinent clinical information, including history, physical exam and plan: Yes Notes (Text): Seen and examined by me Has son on nonrebreather. Uses BIPAP at night on examination has bilat crackles Poor prognosis. continue solumedrol and antibiotics as per DR Arita
[2018-07-30 07:02] LABS: BASO % 0.1 % (0.0-2.0); HEMOGLOBIN 14.7 g/dL (12.0-18.0); LYMPH # 0.3 K/uL (1.0-4.3); LYMPH % 1.9 % (20.0-40.0); MEAN CELL VOLUME 98.8 fL (80.0-94.0); MEAN CORPUSCULAR HEMOGLOBIN 32.2 pg (27.0-31.0); MEAN CORPUSCULAR HGB CONC 32.6 g/dL (33.0-37.0); MEAN PLATELET VOLUME 10.1 fL (7.2-11.7); MONO # 0.2 K/uL (0.0-0.8); MONO % 1.8 % (0.0-10.0); NEUT # 13.3 K/uL (1.8-7.0); NEUT % 96.2 % (50.0-75.0); PLATELET COUNT 165 K/uL (130-400); RBC 4.58 Mil/uL (4.40-5.90); RED CELL DISTRIBUTION WIDTH 16.2 % (11.5-14.5); WHITE BLOOD COUNT 13.8 K/uL (4.8-10.8)
[2018-07-30] MEDS: (Novolin R) Insulin Human Regular 100 units/ml vial SC SCH ×4 (08:13→21:27)
[2018-07-30 08:54] LABS: LYMPHOCYTE 1 % (20-40); MONOCYTE 1 % (0-10); NEUTROPHIL 98 % (50-75); TOTAL CELLS COUNTED 100
[2018-07-30 08:55] LABS: PLATELET ESTIMATE NORMAL (NORMAL)
[2018-07-30] MEDS: Pantoprazole 40 mg EC Tab PO SCH (09:46)
[2018-07-30] MEDS: Multiple Vitamins Tab PO SCH (09:46)
[2018-07-30] MEDS: Micafungin 100 MG in Sodium Chloride 0.9% 100 ML IV SCH (13:35)
--- NOTE | 2018-07-30 17:31 | CP.PCM.PN ---
Subjective - Date & Time of Evaluation Date of Evaluation: 07/30/18 Time of Evaluation: 10:00 - Subjective Subjective: Patient seen and examined at bedside, lying down comfortably. Afebrile and in no acute distress. Reports shortness of breath intermittently and dry cough. Denies chest pain, fever/chills DNR/DNI after palliative care eval Pulmonary pathology report sent outside showed pulmonary fibrosis superimposed on infection Continue duoneb and steroids Continue antibiotics Continue BiPAP Objective - Vital Signs/Intake and Output Vital Signs (last 24 hours): Temp Pulse Resp BP Pulse Ox 97.2 F L 116 H 20 129/84 96 07/30/18 15:52 07/30/18 15:52 07/30/18 15:52 07/30/18 15:52 07/30/18 15:52 Intake and Output: 07/30/18 07/30/18 06:59 18:59 Intake Total 580 Output Total 700 Balance -120 - Medications Medications: Current Medications Acetaminophen (Tylenol 325mg Tab) 650 mg PO Q6 PRN PRN Reason: Pain, Mild (1-3) Last Admin: 07/09/18 12:03 Dose: 650 mg Albuterol/Ipratropium (Duoneb 3 Mg/0.5 Mg (3 Ml) Ud) 3 ml INH RQ4 [facility] Last Admin: 07/30/18 11:00 Dose: 3 ml Dextrose (Dextrose 50% Inj) 0 ml IV STAT PRN; Protocol PRN Reason: Hypoglycemia Protocol Dextrose (Glutose 15) 0 gm PO ONCE PRN; Protocol PRN Reason: Hypoglycemia Protocol Glucagon (Glucagen Diagnostic Kit) 0 mg IM STAT PRN; Protocol PRN Reason: Hypoglycemia Protocol Guaifenesin/Dextromethorphan (Robitussin Dm) 5 ml PO Q4H PRN PRN Reason: Cough Last Admin: 07/26/18 11:27 Dose: 5 ml Heparin Sodium (Porcine) (Heparin) 5,000 units SC Q12 [facility] Last Admin: 07/30/18 09:46 Dose: 5,000 units Meropenem 1 gm/ Sodium (Chloride) 100 mls @ 100 mls/hr IVPB Q8H [facility]; Protocol Last Admin: 07/30/18 12:33 Dose: 100 mls/hr Micafungin Sodium 100 mg/ (Sodium Chloride) 100 mls @ 100 mls/hr IV Q24H [facility]; Protocol Last Admin: 07/30/18 13:35 Dose: 100 mls/hr Ibuprofen (Motrin Tab) 600 mg PO TID PRN PRN Reason: Pain, moderate (4-7) Last Admin: 07/12/18 17:15 Dose: 600 mg Insulin Human Regular (Novolin R) 0 unit SC ACHS [facility]; Protocol Last Admin: 07/30/18 17:24 Dose: 10 units Methylprednisolone (Solu-Medrol) 80 mg IVP Q6 [facility] Last Admin: 07/30/18 17:25 Dose: 80 mg Multivitamins (Hexavitamin) 1 tab PO DAILY [facility] Last Admin: 07/30/18 09:46 Dose: 1 tab Pantoprazole Sodium (Protonix Ec Tab) 40 mg PO DAILY [facility] Last Admin: 07/30/18 09:46 Dose: 40 mg Tramadol HCl (Ultram) 25 mg PO TID PRN PRN Reason: Pain, severe (8-10) Last Admin: 07/27/18 17:28 Dose: 25 mg - Labs Labs: 07/30/18 06:52 07/29/18 16:51 PT 12.6 SECONDS (9.7-12.2) H 07/27/18 07:05 INR 1.2 07/27/18 07:05 APTT 30 SECONDS (21-34) 07/27/18 07:05 Assessment and Plan (1) Pulmonary fibrosis Status: Acute (2) Chronic respiratory failure with hypoxia Status: Acute
[2018-07-31] MEDS: MethylPREDNISolone 40 mg Vial IVP SCH ×4 (00:27→17:44)
[2018-07-31] MEDS: Albuterol-Ipratrop 3 mg / 0.5 (3 ml) UD INH SCH ×7 (00:45→23:43)
[2018-07-31] MEDS: Meropenem 1 GM in Sodium Chloride 0.9% 100 ML IVPB SCH ×3 (05:20→21:49)
[2018-07-31 06:13] LABS: BASO % 0.3 % (0.0-2.0); HEMOGLOBIN 15.3 g/dL (12.0-18.0); LYMPH # 0.3 K/uL (1.0-4.3); LYMPH % 1.6 % (20.0-40.0); MEAN CELL VOLUME 98.1 fL (80.0-94.0); MEAN CORPUSCULAR HEMOGLOBIN 32.1 pg (27.0-31.0); MEAN CORPUSCULAR HGB CONC 32.8 g/dL (33.0-37.0); MEAN PLATELET VOLUME 9.8 fL (7.2-11.7); MONO # 0.3 K/uL (0.0-0.8); MONO % 1.7 % (0.0-10.0); NEUT # 16.1 K/uL (1.8-7.0); NEUT % 96.4 % (50.0-75.0); PLATELET COUNT 159 K/uL (130-400); RBC 4.77 Mil/uL (4.40-5.90); RED CELL DISTRIBUTION WIDTH 15.9 % (11.5-14.5); WHITE BLOOD COUNT 16.7 K/uL (4.8-10.8)
--- NOTE | 2018-07-31 06:55 | CP.PCM.PN ---
<Adrian Tarango - Last Filed: 07/31/18 17:18> Subjective - Date & Time of Evaluation Date of Evaluation: 07/31/18 Time of Evaluation: 06:55 - Subjective Subjective: PGY-[address] Ragsdale service Patient is seen and examined at bedside. Patient states feeling well, breathing through nonrebreather mask, comfortably lying in bed. Patient states he used bipap last night, but it was causing him chest pain on both right and left side of his anterior chest cavity, that he stopped using bipap machine. Patient menti ons having difficulty sleeping due to thoughts of how his life will be after and thinking of his condition is limiting him from the activites he used to do when he was healthier. Patient is eating well and having regular bowel movements. Patient denies any fever, chills, headaches, dizziness, nausea, vomiting diarrhea, constipation, urinary problems. Objective - Vital Signs/Intake and Output Vital Signs (last 24 hours): Temp Pulse Resp BP Pulse Ox 97.2 F L 115 H 20 129/88 98 07/30/18 23:00 07/30/18 23:00 07/30/18 23:00 07/30/18 23:00 07/30/18 23:00 Intake and Output: 07/30/18 07/31/18 18:59 06:59 Intake Total 300 Output Total 900 Balance -600 - Medications Medications: Current Medications Acetaminophen (Tylenol 325mg Tab) 650 mg PO Q6 PRN PRN Reason: Pain, Mild (1-3) Last Admin: 07/09/18 12:03 Dose: 650 mg Albuterol/Ipratropium (Duoneb 3 Mg/0.5 Mg (3 Ml) Ud) 3 ml INH RQ4 [facility] Last Admin: 07/31/18 04:00 Dose: 3 ml Dextrose (Dextrose 50% Inj) 0 ml IV STAT PRN; Protocol PRN Reason: Hypoglycemia Protocol Dextrose (Glutose 15) 0 gm PO ONCE PRN; Protocol PRN Reason: Hypoglycemia Protocol Glucagon (Glucagen Diagnostic Kit) 0 mg IM STAT PRN; Protocol PRN Reason: Hypoglycemia Protocol Guaifenesin/Dextromethorphan (Robitussin Dm) 5 ml PO Q4H PRN PRN Reason: Cough Last Admin: 07/26/18 11:27 Dose: 5 ml Heparin Sodium (Porcine) (Heparin) 5,000 units SC Q12 [facility] Last Admin: 07/30/18 21:28 Dose: 5,000 units Meropenem 1 gm/ Sodium (Chloride) 100 mls @ 100 mls/hr IVPB Q8H [facility]; Protocol Last Admin: 07/31/18 05:20 Dose: 100 mls/hr Micafungin Sodium 100 mg/ (Sodium Chloride) 100 mls @ 100 mls/hr IV Q24H [facility]; Protocol Last Admin: 07/30/18 13:35 Dose: 100 mls/hr Ibuprofen (Motrin Tab) 600 mg PO TID PRN PRN Reason: Pain, moderate (4-7) Last Admin: 07/12/18 17:15 Dose: 600 mg Insulin Human Regular (Novolin R) 0 unit SC ACHS [facility]; Protocol Last Admin: 07/30/18 21:27 Dose: 2 units Methylprednisolone (Solu-Medrol) 80 mg IVP Q6 [facility] Last Admin: 07/31/18 05:21 Dose: 80 mg Multivitamins (Hexavitamin) 1 tab PO DAILY [facility] Last Admin: 07/30/18 09:46 Dose: 1 tab Pantoprazole Sodium (Protonix Ec Tab) 40 mg PO DAILY [facility] Last Admin: 07/30/18 09:46 Dose: 40 mg Tramadol HCl (Ultram) 25 mg PO TID PRN PRN Reason: Pain, severe (8-10) Last Admin: 07/27/18 17:28 Dose: 25 mg - Labs Labs: 07/31/18 06:04 07/29/18 16:51 PT 12.6 SECONDS (9.7-12.2) H 07/27/18 07:05 INR 1.2 07/27/18 07:05 APTT 30 SECONDS (21-34) 07/27/18 07:05 - Constitutional Appears: Non-toxic, No Acute Distress, Cachectic, Chronically Ill - Head Exam Head Exam: ATRAUMATIC, NORMAL INSPECTION, NORMOCEPHALIC - Eye Exam Eye Exam: EOMI, Normal appearance - ENT Exam ENT Exam: Mucous Membranes Moist, Normal Exam - Neck Exam Neck Exam: Full ROM, Normal Inspection - Respiratory Exam Respiratory Exam: Rales Additional comments: crackles auscultated on bilateral lower lobes/lung bases - Cardiovascular Exam Cardiovascular Exam: Tachycardia, REGULAR RHYTHM, +S1, +S2 - GI/Abdominal Exam GI & Abdominal Exam: Soft, Normal Bowel Sounds. absent: Distended, Tenderness - Extremities Exam Extremities Exam: Full ROM, Normal Inspection. absent: Calf Tenderness, Pedal Edema, Tenderness - Back Exam Back Exam: Full ROM, NORMAL INSPECTION. absent: tenderness - Neurological Exam Neurological Exam: Alert, Oriented x3 - Psychiatric Exam Psychiatric exam: Normal Affect, Normal Mood - Skin Skin Exam: Dry, Intact, Normal Color, Warm Assessment and Plan - Assessment and Plan (Free Text) Plan: Interstitial pulmonary fibrosis -patient has history of tobacco use and environmental exposure from work -patient is from [place], homeless, no BC vaccine -continues to be afebrile(97F), stable @ WBC 13.8 (07/29) - BiPAP as needed, nonrebreather mask at 15% -AFB sputum culture x 3 negative, isolation precautions d/c'd -UDS negative -HIV negative -Rapid flu negative -Mycoplasma negative -ProBNP 1540 -ESR 106 -Trop negative x2 -PAULO negative -SRP Ab negative -Blood Cx no growth -Sputum Cx: yeast species -Bronchial Cx: Ramonita albicans -Bronchoscopy Biopsy: fibrosis, acute inflammation, emphysematous changes -Bronchoscopy washings: no malignant cells Pathology report done at [facility] from right lower lobe, bronchoscopic biopsy - Acute and organizing diffuse alveolar damage with minimal patchy scarring in no particular pattern - interstitial fibrosis, emphysematous change and acute inflammation - radiological correlation and wedge biopsy may be helpful in classification. -CXR: peripheral interstitial and to lesser extent confluent changes bilaterally likely chronic in nature -Repeat CXR (07/26): no significant interval changes -CT chest: Findings consistent with diffuse significant interstitial fibrosis with what probably represents paraseptal emphysematous changes and bronchiectasis. There are scattered areas of confluent and ground-glass opacities. Calcified granuloma right lung base. There are mildly enlarged paratracheal and subcarinal lymph nodes -Echo: EF 70%, no diastolic dysfunction, mild-mod TR, mild-mod pulm HTN (44 mm Hg), no pericardial effusion - Duoneb Q4H [facility] - Solumedrol 80 mg IVP Q6H - Robitussin DM 5 mL PO Q4H PRN - Meropenem 1 g Q8H - acyclovir IV Q8HR - Bactrim 250mg IVPB Q6hrs - Mycophenolate mofetil 500mg PO BID - Tylenol 650 mg PO Q6H PRN - Ibuprofen 600 mg PO TID PRN - Tramadol 25 mg PO TID PRN - Pulmonology recs (Dr. Vera) appreciated -Continue duoneb and steroids -Abx Recs: Stop antifungal. Start Bactrim and Acyclovir -Start Mycophenolate -Patient reports difficulty sleeping, start sleep medication -Patient on non-breather mask - f/u further ID recs (Dr. Ritter) - will continue to monitor patient's vital signs and symptoms. Acute sick euthyroid syndrome - TSH low (0.05, 0.17)- suppression exacerbated by IV steroids - Free T4 wnl/low (1.37, 0.76), tot T4 low (3.24, 3.22), T3 wnl (2.89) - Thyroid Abs negative - Endocrinology recs (Dr Ang) appreciated -serial labs Pancreatic abnormality -patient with estimated 10 kg unintentional weight loss in last two years - CEA elevated (6.3), CA 19-9 elevated (215), CA 125 elevated (46.8) - AFP wnl (1.4) - CT abdomen/pelvis: Question enlargement of the pancreatic head/uncinate process. It is unclear if this finding is the results of edematous pancreas/mass or collapsed adjacent duodenum which is difficult to distinguish. Recommend follow-up pancreatic CT for further assessment. - Pancreatic CT: Prominence of pancreatic head without discrete mass, likely reflects normal tissue. Recommend f/u in 3-6 months. -GI recs appreciated (Dr. Clifford) -no acute intervention -repeat imaging as outpatient Pre-diabetes mellitus, chronic - A1c 5.5 - elevated glucose levels on accuchecks - 2/2 to steroid use - ISS medium dose - lantus 10 U x 1 dose - Lantus 10 U at bedtime -accuchecks ACHS -hypoglycemic protocol Insomnia - Tylenol/Codeine 300/30 1 tablet QHS - Ambien 5mg PO HS PRN for insomnia PPx, Diet, Disposition -DVT ppx: heparin 5000 units Q12H -GI ppx: protonix 40 mg PO daily - pain control with tylenol (mild pain), ibuprofen (moderate pain), Ultram (severe pain) - Diet: dietary supplements: Ensure Enlive TID, MV daily, HHD -palliative care consult - Continue O2 supply and Neb Tx Assist with ADLs Use O2 while ambulates SS to assist with information about fci placement and [facility] care DNR/DNI - Physical therapy consult - eval and treat for patient sob when ambulating, patient desires to try to walk longer distances. - OT therapy - eval ability for patient to perform ADLs. Plan discussed with Dr Jn Tarango, PGY-1 <Aj Ragsdale - Last Filed: 07/31/18 19:46> Objective - Vital Signs/Intake and Output Vital Signs (last 24 hours): Temp Pulse Resp BP Pulse Ox 97.7 F 115 H 20 132/85 100 07/31/18 15:20 07/31/18 15:20 07/31/18 15:20 07/31/18 15:20 07/31/18 15:20 - Medications Medications: Current Medications Acetaminophen (Tylenol 325mg Tab) 650 mg PO Q6 PRN PRN Reason: Pain, Mild (1-3) Last Admin: 07/09/18 12:03 Dose: 650 mg Acetaminophen/Codeine Phosphate (Tylenol/Codeine 300 Mg/30 Mg) 1 ea PO HS [facility] Albuterol/Ipratropium (Duoneb 3 Mg/0.5 Mg (3 Ml) Ud) 3 ml INH RQ4 [facility] Last Admin: 07/31/18 19:00 Dose: 3 ml Dextrose (Dextrose 50% Inj) 0 ml IV STAT PRN; Protocol PRN Reason: Hypoglycemia Protocol Dextrose (Glutose 15) 0 gm PO ONCE PRN; Protocol PRN Reason: Hypoglycemia Protocol Glucagon (Glucagen Diagnostic Kit) 0 mg IM STAT PRN; Protocol PRN Reason: Hypoglycemia Protocol Guaifenesin/Dextromethorphan (Robitussin Dm) 5 ml PO Q4H PRN PRN Reason: Cough Last Admin: 07/26/18 11:27 Dose: 5 ml Heparin Sodium (Porcine) (Heparin) 5,000 units SC Q12 [facility] Last Admin: 07/31/18 09:14 Dose: 5,000 units Meropenem 1 gm/ Sodium (Chloride) 100 mls @ 100 mls/hr IVPB Q8H [facility]; Protocol Last Admin: 07/31/18 12:33 Dose: 100 mls/hr Acyclovir 500 mg/ Sodium (Chloride) 100 mls @ 100 mls/hr IV Q8H [facility]; Protocol Last Admin: 07/31/18 17:48 Dose: 100 mls/hr Trimethoprim/Sulfamethoxazole (250 mg/ Dextrose) 500 mls @ 333.333 mls/hr IVPB Q6H [facility] Last Admin: 07/31/18 14:16 Dose: 333.333 mls/hr Ibuprofen (Motrin Tab) 600 mg PO TID PRN PRN Reason: Pain, moderate (4-7) Last Admin: 07/12/18 17:15 Dose: 600 mg Insulin Glargine (Lantus) 10 unit SC HS [facility] Insulin Human Regular (Novolin R) 0 unit SC ACHS [facility]; Protocol Last Admin: 07/31/18 17:44 Dose: 10 units Methylprednisolone (Solu-Medrol) 80 mg IVP Q6 [facility] Last Admin: 07/31/18 17:44 Dose: 80 mg Multivitamins (Hexavitamin) 1 tab PO DAILY [facility] Last Admin: 07/31/18 09:14 Dose: 1 tab Mycophenolate Mofetil (Cellcept) 500 mg PO BID [facility] Pantoprazole Sodium (Protonix Ec Tab) 40 mg PO DAILY [facility] Last Admin: 07/31/18 09:14 Dose: 40 mg Tramadol HCl (Ultram) 25 mg PO TID PRN PRN Reason: Pain, severe (8-10) Last Admin: 07/27/18 17:28 Dose: 25 mg Zolpidem Tartrate (Ambien) 5 mg PO HS PRN PRN Reason: Insomnia - Labs Labs: 07/31/18 14:12 07/31/18 14:12 PT 12.6 SECONDS (9.7-12.2) H 07/27/18 07:05 INR 1.2 07/27/18 07:05 APTT 30 SECONDS (21-34) 07/27/18 07:05 Attending/Attestation - Attestation I have personally seen and examined this patient.: Yes I have fully participated in the care of the patient.: Yes I have reviewed all pertinent clinical information, including history, physical exam and plan: Yes Notes (Text): Seen and examined Patient is alert and oriented x3 Complaining of insomnia and sob D/W Dr Vera. 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
[2018-07-31] MEDS: (Novolin R) Insulin Human Regular 100 units/ml vial SC SCH ×4 (08:41→21:48)
[2018-07-31 08:49] LABS: LYMPHOCYTE 3 % (20-40); MONOCYTE 2 % (0-10); NEUTROPHIL 95 % (50-75); PLATELET ESTIMATE NORMAL (NORMAL); TOTAL CELLS COUNTED 100
[2018-07-31] MEDS: Multiple Vitamins Tab PO SCH (09:14)
[2018-07-31] MEDS: Pantoprazole 40 mg EC Tab PO SCH (09:14)
[2018-07-31] MEDS ORDERED: (Lantus) Insulin Glargine, Recombinant SC ONE (12:00)
--- NOTE | 2018-07-31 12:36 | RAD ---
Date of service: 07/31/2018 PROCEDURE: CHEST RADIOGRAPH, 1 VIEW HISTORY: SOB COMPARISON: 07/26/2018. FINDINGS: LUNGS: There are low lung volumes. There is redemonstration of diffuse interstitial thickening in the lungs worse on the right. There is bibasilar atelectasis. PLEURA: No pneumothorax or pleural effusion. CARDIOVASCULAR: The heart is normal in size. No aortic atherosclerotic calcifications present. OSSEOUS STRUCTURES: Within normal limits for the patient's age. VISUALIZED UPPER ABDOMEN: Normal. OTHER FINDINGS: None. IMPRESSION: Redemonstration of diffuse interstitial fibrosis, worse on the right.
--- NOTE | 2018-07-31 12:55 | CP.PCM.PN ---
Subjective - Date & Time of Evaluation Date of Evaluation: 07/31/18 Time of Evaluation: 09:00 - Subjective Subjective: Patient seen and examined at bedside, lying down comfortably. Afebrile and in no acute distress. Reports shortness of breath intermittently and trying to breathe without the mask. Hoarse crackles on exam Denies chest pain, fever/chills WBC 16.7 today 07/31/18 Continue duoneb and steroids Abx Recs: Stop antifungal. Start Bactrim and Acyclovir Start Mycophenolate Patient reports difficulty sleeping, start sleep medication Patient on non-breather mask Objective - Vital Signs/Intake and Output Vital Signs (last 24 hours): Temp Pulse Resp BP Pulse Ox 97.4 F L 100 H 20 144/95 H 98 07/31/18 07:00 07/31/18 07:00 07/31/18 07:00 07/31/18 07:00 07/31/18 07:00 Intake and Output: 07/31/18 07/31/18 06:59 18:59 Intake Total 300 Output Total 900 Balance -600 - Medications Medications: Current Medications Acetaminophen (Tylenol 325mg Tab) 650 mg PO Q6 PRN PRN Reason: Pain, Mild (1-3) Last Admin: 07/09/18 12:03 Dose: 650 mg Acetaminophen/Codeine Phosphate (Tylenol/Codeine 300 Mg/30 Mg) 1 ea PO HS [facility] Albuterol/Ipratropium (Duoneb 3 Mg/0.5 Mg (3 Ml) Ud) 3 ml INH RQ4 [facility] Last Admin: 07/31/18 11:19 Dose: 3 ml Dextrose (Dextrose 50% Inj) 0 ml IV STAT PRN; Protocol PRN Reason: Hypoglycemia Protocol Dextrose (Glutose 15) 0 gm PO ONCE PRN; Protocol PRN Reason: Hypoglycemia Protocol Glucagon (Glucagen Diagnostic Kit) 0 mg IM STAT PRN; Protocol PRN Reason: Hypoglycemia Protocol Guaifenesin/Dextromethorphan (Robitussin Dm) 5 ml PO Q4H PRN PRN Reason: Cough Last Admin: 07/26/18 11:27 Dose: 5 ml Heparin Sodium (Porcine) (Heparin) 5,000 units SC Q12 [facility] Last Admin: 07/31/18 09:14 Dose: 5,000 units Meropenem 1 gm/ Sodium (Chloride) 100 mls @ 100 mls/hr IVPB Q8H [facility]; Protocol Last Admin: 07/31/18 12:33 Dose: 100 mls/hr Acyclovir 500 mg/ Sodium (Chloride) 100 mls @ 100 mls/hr IV Q8H [facility]; Protocol Trimethoprim/Sulfamethoxazole (250 mg/ Dextrose) 500 mls @ 333.333 mls/hr IVPB Q6H [facility] Ibuprofen (Motrin Tab) 600 mg PO TID PRN PRN Reason: Pain, moderate (4-7) Last Admin: 07/12/18 17:15 Dose: 600 mg Insulin Glargine (Lantus) 10 unit SC HS [facility] Insulin Human Regular (Novolin R) 0 unit SC ACHS [facility]; Protocol Last Admin: 07/31/18 12:35 Dose: 6 units Methylprednisolone (Solu-Medrol) 80 mg IVP Q6 [facility] Last Admin: 07/31/18 12:33 Dose: 80 mg Multivitamins (Hexavitamin) 1 tab PO DAILY [facility] Last Admin: 07/31/18 09:14 Dose: 1 tab Mycophenolate Mofetil (Cellcept) 500 mg PO BID [facility] Pantoprazole Sodium (Protonix Ec Tab) 40 mg PO DAILY [facility] Last Admin: 07/31/18 09:14 Dose: 40 mg Tramadol HCl (Ultram) 25 mg PO TID PRN PRN Reason: Pain, severe (8-10) Last Admin: 07/27/18 17:28 Dose: 25 mg - Labs Labs: 07/31/18 06:04 07/29/18 16:51 PT 12.6 SECONDS (9.7-12.2) H 07/27/18 07:05 INR 1.2 07/27/18 07:05 APTT 30 SECONDS (21-34) 07/27/18 07:05 Assessment and Plan (1) Pulmonary fibrosis Status: Acute (2) Chronic respiratory failure with hypoxia Status: Acute
[2018-07-31] MEDS: Sulfamethoxazole/Trimethoprim 250 MG in Dextrose 5% In Water 500 ML IVPB SCH ×2 (14:16→21:39)
[2018-07-31 14:23] LABS: BASO % 0.3 % (0.0-2.0); HEMOGLOBIN 14.9 g/dL (12.0-18.0); LYMPH # 0.3 K/uL (1.0-4.3); LYMPH % 1.8 % (20.0-40.0); MEAN CORPUSCULAR HEMOGLOBIN 31.8 pg (27.0-31.0); MEAN CORPUSCULAR HGB CONC 32.1 g/dL (33.0-37.0); MONO # 0.4 K/uL (0.0-0.8); MONO % 2.5 % (0.0-10.0); NEUT # 14.2 K/uL (1.8-7.0); NEUT % 95.4 % (50.0-75.0); PLATELET COUNT 156 K/uL (130-400); RBC 4.69 Mil/uL (4.40-5.90); RED CELL DISTRIBUTION WIDTH 16.3 % (11.5-14.5); WHITE BLOOD COUNT 14.9 K/uL (4.8-10.8)
[2018-07-31 14:37] LABS: ALB/GLOB RATIO 0.9 (1.0-2.1); ALT/SGPT 37 U/L (21-72); AST/SGOT 38 U/L (17-59); BLOOD UREA NITROGEN 38 mg/dL (9-20); CALCIUM 8.1 mg/dl (8.6-10.4); GFR NON-AFRICAN AMERICAN > 60
[2018-07-31] MEDS: Acyclovir 500 MG in Sodium Chloride 0.9% 100 ML IV SCH ×4 (15:10→22:44)
[2018-07-31 15:17] LABS: LYMPHOCYTE 1 % (20-40); MONOCYTE 1 % (0-10); NEUTROPHIL 98 % (50-75); TOTAL CELLS COUNTED 100
[2018-07-31 15:18] LABS: PLATELET ESTIMATE NORMAL (NORMAL)
--- NOTE | 2018-07-31 18:08 | CP.PCM.PN ---
Subjective - Date & Time of Evaluation Date of Evaluation: 07/31/18 Time of Evaluation: 08:00 - Subjective Subjective: essentially same clinically afeb on VMask biopsy on hold now being treated empirically for PCP and HSV poor prognosis Objective - Vital Signs/Intake and Output Vital Signs (last 24 hours): Temp Pulse Resp BP Pulse Ox 97.7 F 115 H 20 132/85 100 07/31/18 15:20 07/31/18 15:20 07/31/18 15:20 07/31/18 15:20 07/31/18 15:20 Intake and Output: 07/31/18 07/31/18 06:59 18:59 Intake Total 300 Output Total 900 Balance -600 - Medications Medications: Current Medications Acetaminophen (Tylenol 325mg Tab) 650 mg PO Q6 PRN PRN Reason: Pain, Mild (1-3) Last Admin: 07/09/18 12:03 Dose: 650 mg Acetaminophen/Codeine Phosphate (Tylenol/Codeine 300 Mg/30 Mg) 1 ea PO HS [facility] Albuterol/Ipratropium (Duoneb 3 Mg/0.5 Mg (3 Ml) Ud) 3 ml INH RQ4 [facility] Last Admin: 07/31/18 16:05 Dose: 3 ml Dextrose (Dextrose 50% Inj) 0 ml IV STAT PRN; Protocol PRN Reason: Hypoglycemia Protocol Dextrose (Glutose 15) 0 gm PO ONCE PRN; Protocol PRN Reason: Hypoglycemia Protocol Glucagon (Glucagen Diagnostic Kit) 0 mg IM STAT PRN; Protocol PRN Reason: Hypoglycemia Protocol Guaifenesin/Dextromethorphan (Robitussin Dm) 5 ml PO Q4H PRN PRN Reason: Cough Last Admin: 07/26/18 11:27 Dose: 5 ml Heparin Sodium (Porcine) (Heparin) 5,000 units SC Q12 [facility] Last Admin: 07/31/18 09:14 Dose: 5,000 units Meropenem 1 gm/ Sodium (Chloride) 100 mls @ 100 mls/hr IVPB Q8H [facility]; Protocol Last Admin: 07/31/18 12:33 Dose: 100 mls/hr Acyclovir 500 mg/ Sodium (Chloride) 100 mls @ 100 mls/hr IV Q8H [facility]; Protocol Last Admin: 07/31/18 17:48 Dose: 100 mls/hr Trimethoprim/Sulfamethoxazole (250 mg/ Dextrose) 500 mls @ 333.333 mls/hr IVPB Q6H [facility] Last Admin: 07/31/18 14:16 Dose: 333.333 mls/hr Ibuprofen (Motrin Tab) 600 mg PO TID PRN PRN Reason: Pain, moderate (4-7) Last Admin: 07/12/18 17:15 Dose: 600 mg Insulin Glargine (Lantus) 10 unit SC HS [facility] Insulin Human Regular (Novolin R) 0 unit SC ACHS [facility]; Protocol Last Admin: 07/31/18 17:44 Dose: 10 units Methylprednisolone (Solu-Medrol) 80 mg IVP Q6 [facility] Last Admin: 07/31/18 17:44 Dose: 80 mg Multivitamins (Hexavitamin) 1 tab PO DAILY [facility] Last Admin: 07/31/18 09:14 Dose: 1 tab Mycophenolate Mofetil (Cellcept) 500 mg PO BID [facility] Pantoprazole Sodium (Protonix Ec Tab) 40 mg PO DAILY [facility] Last Admin: 07/31/18 09:14 Dose: 40 mg Tramadol HCl (Ultram) 25 mg PO TID PRN PRN Reason: Pain, severe (8-10) Last Admin: 07/27/18 17:28 Dose: 25 mg Zolpidem Tartrate (Ambien) 5 mg PO HS PRN PRN Reason: Insomnia - Labs Labs: 07/31/18 14:12 07/31/18 14:12 PT 12.6 SECONDS (9.7-12.2) H 07/27/18 07:05 INR 1.2 07/27/18 07:05 APTT 30 SECONDS (21-34) 07/27/18 07:05 Assessment and Plan (1) Chronic respiratory failure with hypoxia Status: Acute (2) Pulmonary fibrosis Status: Acute (3) Bronchiectasis Status: Acute
[2018-07-31] MEDS: Acetaminophen-Codeine 300/30 mg Tab PO SCH (21:38)
[2018-07-31] MEDS: guaiFENesin DM 100 mg-10 mg/5 ml UD PO PRN (21:39)
[2018-07-31] MEDS ORDERED: (Lantus) Insulin Glargine, Recombinant SC SCH (22:00)
[2018-08-01] MEDS: MethylPREDNISolone 40 mg Vial IVP SCH ×4 (00:09→17:36)
[2018-08-01] MEDS: Sulfamethoxazole/Trimethoprim 250 MG in Dextrose 5% In Water 500 ML IVPB SCH ×3 (00:45→14:46)
--- NOTE | 2018-08-01 02:42 | CP.PCM.PN ---
<Sofia Ospina Y - Last Filed: 08/01/18 02:38> Subjective - Date & Time of Evaluation Date of Evaluation: 08/01/18 Time of Evaluation: 05:00 - Subjective Subjective: PGY-1 Medicine Progress Note for Dr. Ragsdale Patient was seen and examined at bedside in no acute distress. Nurse reports no overnight events. Patient has no new complaints. He remains having difficulty breathing, preferring the NRB over BiPAP. Denies fever, chills, chest pain, abdominal pain, difficult urinating or having BM, n/v/c/d. Objective - Vital Signs/Intake and Output Vital Signs (last 24 hours): Temp Pulse Resp BP Pulse Ox 97.6 F 97 H 20 128/69 100 07/31/18 23:00 07/31/18 23:00 07/31/18 23:00 07/31/18 23:00 07/31/18 23:00 Intake and Output: 07/31/18 08/01/18 18:59 06:59 Output Total 900 Balance -900 - Medications Medications: Current Medications Acetaminophen (Tylenol 325mg Tab) 650 mg PO Q6 PRN PRN Reason: Pain, Mild (1-3) Last Admin: 07/09/18 12:03 Dose: 650 mg Acetaminophen/Codeine Phosphate (Tylenol/Codeine 300 Mg/30 Mg) 1 ea PO HS [facility] Last Admin: 07/31/18 21:38 Dose: 1 ea Albuterol/Ipratropium (Duoneb 3 Mg/0.5 Mg (3 Ml) Ud) 3 ml INH RQ4 [facility] Last Admin: 07/31/18 23:43 Dose: 3 ml Dextrose (Dextrose 50% Inj) 0 ml IV STAT PRN; Protocol PRN Reason: Hypoglycemia Protocol Dextrose (Glutose 15) 0 gm PO ONCE PRN; Protocol PRN Reason: Hypoglycemia Protocol Glucagon (Glucagen Diagnostic Kit) 0 mg IM STAT PRN; Protocol PRN Reason: Hypoglycemia Protocol Guaifenesin/Dextromethorphan (Robitussin Dm) 5 ml PO Q4H PRN PRN Reason: Cough Last Admin: 07/31/18 21:39 Dose: 5 ml Heparin Sodium (Porcine) (Heparin) 5,000 units SC Q12 [facility] Last Admin: 07/31/18 21:39 Dose: 5,000 units Meropenem 1 gm/ Sodium (Chloride) 100 mls @ 100 mls/hr IVPB Q8H [facility]; Protocol Last Admin: 07/31/18 21:49 Dose: 100 mls/hr Acyclovir 500 mg/ Sodium (Chloride) 100 mls @ 100 mls/hr IV Q8H [facility]; Protocol Last Admin: 07/31/18 22:44 Dose: 100 mls/hr Trimethoprim/Sulfamethoxazole (250 mg/ Dextrose) 500 mls @ 333.333 mls/hr IVPB Q6H [facility] Last Admin: 08/01/18 00:45 Dose: 333.333 mls/hr Ibuprofen (Motrin Tab) 600 mg PO TID PRN PRN Reason: Pain, moderate (4-7) Last Admin: 07/12/18 17:15 Dose: 600 mg Insulin Glargine (Lantus) 10 unit SC HS [facility] Last Admin: 07/31/18 22:01 Dose: 10 u Insulin Human Regular (Novolin R) 0 unit SC ACHS [facility]; Protocol Last Admin: 07/31/18 21:48 Dose: 2 units Methylprednisolone (Solu-Medrol) 80 mg IVP Q6 [facility] Last Admin: 08/01/18 00:09 Dose: 80 mg Multivitamins (Hexavitamin) 1 tab PO DAILY [facility] Last Admin: 07/31/18 09:14 Dose: 1 tab Mycophenolate Mofetil (Cellcept) 500 mg PO BID [facility] Last Admin: 07/31/18 21:39 Dose: 500 mg Pantoprazole Sodium (Protonix Ec Tab) 40 mg PO DAILY [facility] Last Admin: 07/31/18 09:14 Dose: 40 mg Tramadol HCl (Ultram) 25 mg PO TID PRN PRN Reason: Pain, severe (8-10) Last Admin: 07/27/18 17:28 Dose: 25 mg Zolpidem Tartrate (Ambien) 5 mg PO HS PRN PRN Reason: Insomnia Last Admin: 07/31/18 21:47 Dose: 5 mg - Labs Labs: 07/31/18 14:12 07/31/18 14:12 PT 12.6 SECONDS (9.7-12.2) H 07/27/18 07:05 INR 1.2 07/27/18 07:05 APTT 30 SECONDS (21-34) 07/27/18 07:05 - Constitutional Appears: Chronically Ill - Head Exam Head Exam: ATRAUMATIC, NORMOCEPHALIC - Eye Exam Eye Exam: Normal appearance - ENT Exam ENT Exam: Mucous Membranes Moist - Respiratory Exam Respiratory Exam: Accessory Muscle Use, Rales. absent: Rhonchi, Wheezes Additional comments: bilateral crackles at mid and lower lungs - Cardiovascular Exam Cardiovascular Exam: Tachycardia, REGULAR RHYTHM, +S1, +S2 - GI/Abdominal Exam GI & Abdominal Exam: Soft, Normal Bowel Sounds. absent: Tenderness - Extremities Exam Extremities Exam: absent: Calf Tenderness Additional comments: IV access in R hand - Neurological Exam Neurological Exam: Alert, Awake, Oriented x3 - Psychiatric Exam Psychiatric exam: Anxious - Skin Skin Exam: Normal Color, Warm Assessment and Plan - Assessment and Plan (Free Text) Plan: Interstitial pulmonary fibrosis -patient has history of tobacco use and environmental exposure from work -patient is from [place], homeless, no BC vaccine -continues to be afebrile(97F), stable @ WBC 13.8 (07/29) - BiPAP as needed, nonrebreather mask at 15% -AFB sputum culture x 3 negative, isolation precautions d/c'd -UDS negative -HIV negative -Rapid flu negative -Mycoplasma negative -ProBNP 1540 -ESR 106 -Trop negative x2 -PAULO negative -SRP Ab negative -Blood Cx no growth -Sputum Cx: yeast species -Bronchial Cx: Ramonita albicans -Bronchoscopy Biopsy: fibrosis, acute inflammation, emphysematous changes -Bronchoscopy washings: no malignant cells Pathology report done at [facility] from right lower lobe, bronchoscopic biopsy - Acute and organizing diffuse alveolar damage with minimal patchy scarring in no particular pattern - interstitial fibrosis, emphysematous change and acute inflammation - radiological correlation and wedge biopsy may be helpful in classification. -CXR: peripheral interstitial and to lesser extent confluent changes bilaterally likely chronic in nature -Repeat CXR (07/26): no significant interval changes -CT chest: Findings consistent with diffuse significant interstitial fibrosis with what probably represents paraseptal emphysematous changes and bronc hiectasis. There are scattered areas of confluent and ground-glass opacities. Calcified granuloma right lung base. There are mildly enlarged paratracheal and subcarinal lymph nodes -Echo: EF 70%, no diastolic dysfunction, mild-mod TR, mild-mod pulm HTN (44 mmHg), no pericardial effusion - Duoneb Q4H [facility] - Solumedrol 80 mg IVP Q6H - Robitussin DM 5 mL PO Q4H PRN - Meropenem 1 g Q8H - acyclovir IV Q8HR - Bactrim 250mg IVPB Q6hrs - Mycophenolate mofetil 500mg PO BID - Tylenol 650 mg PO Q6H PRN - Ibuprofen 600 mg PO TID PRN - Tramadol 25 mg PO TID PRN - Pulmonology recs (Dr. Vera) appreciated -Continue duoneb and steroids -Abx Recs: Stop antifungal. Start Bactrim and Acyclovir -Start Mycophenolate -Patient reports difficulty sleeping, start sleep medication -Patient on non-breather mask - f/u further ID recs (Dr. Ritter) - will continue to monitor patient's vital signs and symptoms. Acute sick euthyroid syndrome - TSH low (0.05, 0.17)- suppression exacerbated by IV steroids - Free T4 wnl/low (1.37, 0.76), tot T4 low (3.24, 3.22), T3 wnl (2.89) - Thyroid Abs negative - Endocrinology recs (Dr Ang) appreciated -serial labs Pancreatic abnormality -patient with estimated 10 kg unintentional weight loss in last two years - CEA elevated (6.3), CA 19-9 elevated (215), CA 125 elevated (46.8) - AFP wnl (1.4) - CT abdomen/pelvis: Question enlargement of the pancreatic head/uncinate process. It is unclear if this finding is the results of edematous pancreas/mass or collapsed adjacent duodenum which is difficult to distinguish. Recommend follow-up pancreatic CT for further assessment. - Pancreatic CT: Prominence of pancreatic head without discrete mass, likely reflects normal tissue. Recommend f/u in 3-6 months. -GI recs appreciated (Dr. Clifford) -no acute intervention -repeat imaging as outpatient Pre-diabetes mellitus, chronic - A1c 5.5 - elevated glucose levels on accuchecks - 2/2 to steroid use - ISS medium dose - lantus 10 U x 1 dose - Lantus 10 U at bedtime -accuchecks ACHS -hypoglycemic protocol Insomnia - Tylenol/Codeine 300/30 1 tablet QHS - Ambien 5mg PO HS PRN for insomnia PPx, Diet, Disposition -DVT ppx: heparin 5000 units Q12H -GI ppx: protonix 40 mg PO daily - pain control with tylenol (mild pain), ibuprofen (moderate pain), Ultram (severe pain) - Diet: dietary supplements: Ensure Enlive TID, MV daily, HHD -palliative care consult - Continue O2 supply and Neb Tx Assist with ADLs Use O2 while ambulates SS to assist with information about penitentiary placement and Jacquelin care DNR/DNI - Physical therapy consult - eval and treat for patient sob when ambulating, patient desires to try to walk longer distances. - OT therapy - eval ability for patient to perform ADLs. <Aj Ragsdale - Last Filed: 08/01/18 12:28> Objective - Vital Signs/Intake and Output Vital Signs (last 24 hours): Temp Pulse Resp BP Pulse Ox 98.8 F 100 H 18 132/85 99 08/01/18 07:45 08/01/18 07:45 08/01/18 07:45 08/01/18 07:45 08/01/18 07:45 Intake and Output: 08/01/18 08/01/18 06:59 18:59 Output Total 900 Balance -900 - Medications Medications: Current Medications Acetaminophen (Tylenol 325mg Tab) 650 mg PO Q6 PRN PRN Reason: Pain, Mild (1-3) Last Admin: 08/01/18 08:07 Dose: 650 mg Acetaminophen/Codeine Phosphate (Tylenol/Codeine 300 Mg/30 Mg) 1 ea PO HS [facility] Last Admin: 07/31/18 21:38 Dose: 1 ea Albuterol/Ipratropium (Duoneb 3 Mg/0.5 Mg (3 Ml) Ud) 3 ml INH RQ4 [facility] Last Admin: 08/01/18 08:36 Dose: 3 ml Dextrose (Dextrose 50% Inj) 0 ml IV STAT PRN; Protocol PRN Reason: Hypoglycemia Protocol Dextrose (Glutose 15) 0 gm PO ONCE PRN; Protocol PRN Reason: Hypoglycemia Protocol Glucagon (Glucagen Diagnostic Kit) 0 mg IM STAT PRN; Protocol PRN Reason: Hypoglycemia Protocol Guaifenesin/Dextromethorphan (Robitussin Dm) 5 ml PO Q4H PRN PRN Reason: Cough Last Admin: 07/31/18 21:39 Dose: 5 ml Heparin Sodium (Porcine) (Heparin) 5,000 units SC Q12 [facility] Last Admin: 08/01/18 09:48 Dose: 5,000 units Meropenem 1 gm/ Sodium (Chloride) 100 mls @ 100 mls/hr IVPB Q8H [facility]; Protocol Last Admin: 08/01/18 04:27 Dose: 100 mls/hr Acyclovir 500 mg/ Sodium (Chloride) 100 mls @ 100 mls/hr IV Q8H [facility]; Protocol Last Admin: 08/01/18 05:51 Dose: 100 mls/hr Trimethoprim/Sulfamethoxazole (250 mg/ Dextrose) 500 mls @ 333.333 mls/hr IVPB Q6H [facility] Last Admin: 08/01/18 07:09 Dose: 333.333 mls/hr Ibuprofen (Motrin Tab) 600 mg PO TID PRN PRN Reason: Pain, moderate (4-7) Last Admin: 07/12/18 17:15 Dose: 600 mg Insulin Glargine (Lantus) 10 unit SC HS [facility] Last Admin: 07/31/18 22:01 Dose: 10 u Insulin Human Regular (Novolin R) 0 unit SC ACHS [facility]; Protocol Last Admin: 08/01/18 08:16 Dose: 3 units Methylprednisolone (Solu-Medrol) 80 mg IVP Q6 [facility] Last Admin: 08/01/18 07:44 Dose: 80 mg Multivitamins (Hexavitamin) 1 tab PO DAILY [facility] Last Admin: 07/31/18 09:14 Dose: 1 tab Mycophenolate Mofetil (Cellcept) 500 mg PO BID [facility] Last Admin: 07/31/18 21:39 Dose: 500 mg Pantoprazole Sodium (Protonix Ec Tab) 40 mg PO DAILY [facility] Last Admin: 08/01/18 09:48 Dose: 40 mg Tramadol HCl (Ultram) 25 mg PO TID PRN PRN Reason: Pain, severe (8-10) Last Admin: 07/27/18 17:28 Dose: 25 mg Zolpidem Tartrate (Ambien) 5 mg PO HS PRN PRN Reason: Insomnia Last Admin: 07/31/18 21:47 Dose: 5 mg - Labs Labs: 08/01/18 07:04 08/01/18 07:04 PT 12.6 SECONDS (9.7-12.2) H 07/27/18 07:05 INR 1.2 07/27/18 07:05 APTT 30 SECONDS (21-34) 07/27/18 07:05 Attending/Attestation - Attestation I have personally seen and examined this patient.: Yes I have fully participated in the care of the patient.: Yes I have reviewed all pertinent clinical information, including history, physical exam and plan: Yes Notes (Text): seen and examined,lungs with crackles,SOB on bipap No change ,no complain,ON BIPAP continue bactrim,Micophenolate,acyclovir and meropenem On solumedrol 80mg Q8h
[2018-08-01] MEDS: Meropenem 1 GM in Sodium Chloride 0.9% 100 ML IVPB SCH ×3 (04:27→20:10)
[2018-08-01] MEDS: Albuterol-Ipratrop 3 mg / 0.5 (3 ml) UD INH SCH ×5 (04:40→19:15)
[2018-08-01] MEDS: Acyclovir 500 MG in Sodium Chloride 0.9% 100 ML IV SCH ×3 (05:51→21:46)
[2018-08-01 07:15] LABS: BASO % 0.3 % (0.0-2.0); HEMOGLOBIN 14.8 g/dL (12.0-18.0); LYMPH # 0.3 K/uL (1.0-4.3); LYMPH % 2.2 % (20.0-40.0); MEAN CELL VOLUME 97.4 fL (80.0-94.0); MEAN CORPUSCULAR HEMOGLOBIN 31.9 pg (27.0-31.0); MEAN CORPUSCULAR HGB CONC 32.8 g/dL (33.0-37.0); MEAN PLATELET VOLUME 9.1 fL (7.2-11.7); MONO # 0.2 K/uL (0.0-0.8); MONO % 1.8 % (0.0-10.0); NEUT # 13.3 K/uL (1.8-7.0); NEUT % 95.7 % (50.0-75.0); PLATELET COUNT 150 K/uL (130-400); RBC 4.65 Mil/uL (4.40-5.90); RED CELL DISTRIBUTION WIDTH 16.5 % (11.5-14.5); WHITE BLOOD COUNT 13.9 K/uL (4.8-10.8)
[2018-08-01 07:46] LABS: ALB/GLOB RATIO 0.9 (1.0-2.1); ALT/SGPT 44 U/L (21-72); AST/SGOT 46 U/L (17-59); BLOOD UREA NITROGEN 30 mg/dL (9-20); CALCIUM 8.1 mg/dl (8.6-10.4); GFR NON-AFRICAN AMERICAN > 60
[2018-08-01] MEDS: (Novolin R) Insulin Human Regular 100 units/ml vial SC SCH ×4 (08:16→21:45)
[2018-08-01] MEDS: Pantoprazole 40 mg EC Tab PO SCH (09:48)
[2018-08-01 11:20] LABS: BANDS 2 % (0-2); LYMPHOCYTE 2 % (20-40); MONOCYTE 2 % (0-10); NEUTROPHIL 94 % (50-75); PLATELET ESTIMATE NORMAL (NORMAL); TOTAL CELLS COUNTED 100
[2018-08-01 11:21] LABS: ANISOCYTOSIS SLIGHT; TOXIC GRANULATION PRESENT
[2018-08-01 11:22] LABS: LARGE PLATELETS PRESENT
[2018-08-01 11:23] LABS: GIANT PLATELETS PRESENT
[2018-08-01] MEDS: Multiple Vitamins Tab PO SCH (13:00)
[2018-08-01] MEDS: Acetaminophen-Codeine 300/30 mg Tab PO SCH (21:44)
[2018-08-01] MEDS: (Lantus) Insulin Glargine, Recombinant SC SCH (21:45)
[2018-08-02] MEDS: Albuterol-Ipratrop 3 mg / 0.5 (3 ml) UD INH SCH ×9 (00:10→19:20)
[2018-08-02] MEDS: MethylPREDNISolone 40 mg Vial IVP SCH ×4 (00:11→17:40)
--- NOTE | 2018-08-02 02:41 | CP.PCM.PN ---
<Sofia Ospina Y - Last Filed: 08/02/18 02:36> Subjective - Date & Time of Evaluation Date of Evaluation: 08/02/18 Time of Evaluation: 05:15 - Subjective Subjective: PGY-1 Medicine Progress Note for Dr. Ragsdale Patient was seen and examined at bedside in no acute distress. Nurse reports no overnight events. Patient has no new complaints. He remains having difficulty breathing, preferring the NRB over BiPAP. Denies fever, chills, chest pain, abdominal pain, difficult urinating or having BM, n/v/c/d. Objective - Vital Signs/Intake and Output Vital Signs (last 24 hours): Temp Pulse Resp BP Pulse Ox 97.6 F 112 H 20 129/81 99 08/01/18 23:00 08/01/18 23:00 08/01/18 23:00 08/01/18 23:00 08/01/18 23:00 Intake and Output: 08/01/18 08/02/18 18:59 06:59 Intake Total 480 200 Output Total 600 600 Balance -120 -400 - Medications Medications: Current Medications Acetaminophen (Tylenol 325mg Tab) 650 mg PO Q6 PRN PRN Reason: Pain, Mild (1-3) Last Admin: 08/01/18 08:07 Dose: 650 mg Acetaminophen/Codeine Phosphate (Tylenol/Codeine 300 Mg/30 Mg) 1 ea PO HS [facility] Last Admin: 08/01/18 21:44 Dose: 1 ea Albuterol/Ipratropium (Duoneb 3 Mg/0.5 Mg (3 Ml) Ud) 3 ml INH RQ4 [facility] Last Admin: 08/01/18 19:15 Dose: 3 ml Dextrose (Dextrose 50% Inj) 0 ml IV STAT PRN; Protocol PRN Reason: Hypoglycemia Protocol Dextrose (Glutose 15) 0 gm PO ONCE PRN; Protocol PRN Reason: Hypoglycemia Protocol Glucagon (Glucagen Diagnostic Kit) 0 mg IM STAT PRN; Protocol PRN Reason: Hypoglycemia Protocol Guaifenesin/Dextromethorphan (Robitussin Dm) 5 ml PO Q4H PRN PRN Reason: Cough Last Admin: 07/31/18 21:39 Dose: 5 ml Heparin Sodium (Porcine) (Heparin) 5,000 units SC Q12 [facility] Last Admin: 08/01/18 21:45 Dose: 5,000 units Meropenem 1 gm/ Sodium (Chloride) 100 mls @ 100 mls/hr IVPB Q8H [facility]; Protocol Last Admin: 08/01/18 20:10 Dose: 100 mls/hr Acyclovir 500 mg/ Sodium (Chloride) 100 mls @ 100 mls/hr IV Q8H [facility]; Protocol Last Admin: 08/01/18 21:46 Dose: 100 mls/hr Ibuprofen (Motrin Tab) 600 mg PO TID PRN PRN Reason: Pain, moderate (4-7) Last Admin: 07/12/18 17:15 Dose: 600 mg Insulin Glargine (Lantus) 20 unit SC HS [facility] Last Admin: 08/01/18 21:45 Dose: 20 units Insulin Human Regular (Novolin R) 0 unit SC ACHS [facility]; Protocol Last Admin: 08/01/18 21:45 Dose: Not Given Methylprednisolone (Solu-Medrol) 80 mg IVP Q6 [facility] Last Admin: 08/02/18 00:11 Dose: 80 mg Multivitamins (Hexavitamin) 1 tab PO DAILY [facility] Last Admin: 08/01/18 13:00 Dose: 1 tab Mycophenolate Mofetil (Cellcept) 500 mg PO BID [facility] Last Admin: 08/01/18 17:37 Dose: 500 mg Pantoprazole Sodium (Protonix Ec Tab) 40 mg PO DAILY [facility] Last Admin: 08/01/18 09:48 Dose: 40 mg Tramadol HCl (Ultram) 25 mg PO TID PRN PRN Reason: Pain, severe (8-10) Last Admin: 07/27/18 17:28 Dose: 25 mg Zolpidem Tartrate (Ambien) 5 mg PO HS PRN PRN Reason: Insomnia Last Admin: 07/31/18 21:47 Dose: 5 mg - Labs Labs: 08/01/18 07:04 08/01/18 07:04 PT 12.6 SECONDS (9.7-12.2) H 07/27/18 07:05 INR 1.2 07/27/18 07:05 APTT 30 SECONDS (21-34) 07/27/18 07:05 - Constitutional Appears: Chronically Ill - Head Exam Head Exam: ATRAUMATIC, NORMOCEPHALIC - Eye Exam Eye Exam: Normal appearance - ENT Exam ENT Exam: Mucous Membranes Moist - Respiratory Exam Respiratory Exam: Accessory Muscle Use, Rales. absent: Rhonchi, Wheezes Additional comments: bilateral crackles at mid and lower lobes - Cardiovascular Exam Cardiovascular Exam: Tachycardia, REGULAR RHYTHM, +S1, +S2 - GI/Abdominal Exam GI & Abdominal Exam: Soft, Normal Bowel Sounds. absent: Tenderness - Extremities Exam Extremities Exam: absent: Calf Tenderness Additional comments: IV access in R hand - Neurological Exam Neurological Exam: Alert, Awake, Oriented x3 - Psychiatric Exam Psychiatric exam: Anxious - Skin Skin Exam: Normal Color, Warm Assessment and Plan - Assessment and Plan (Free Text) Plan: Interstitial pulmonary fibrosis -patient has history of tobacco use and environmental exposure from work -patient is from [place], homeless, no BC vaccine -continues to be afebrile(97F), stable @ WBC 13.8 (07/29) - BiPAP as needed, nonrebreather mask at 15% -AFB sputum culture x 3 negative, isolation precautions d/c'd -UDS negative -HIV negative -Rapid flu negative -Mycoplasma negative -ProBNP 1540 -ESR 106 -Trop negative x2 -PAULO negative -SRP Ab negative -Blood Cx no growth -Sputum Cx: yeast species -Bronchial Cx: Ramonita albicans -Bronchoscopy Biopsy: fibrosis, acute inflammation, emphysematous changes -Bronchoscopy washings: no malignant cells Pathology report done at [facility] from right lower lobe, bronchoscopic biopsy - Acute and organizing diffuse alveolar damage with minimal patchy scarring in no particular pattern - interstitial fibrosis, emphysematous change and acute inflammation - radiological correlation and wedge biopsy may be helpful in classification. -CXR: peripheral interstitial and to lesser extent confluent changes bilaterally likely chronic in nature -Repeat CXR (07/26): no significant interval changes -CT chest: Findings consistent with diffuse significant interstitial fibrosis with what probably represents paraseptal emphysematous changes and bronchi ectasis. There are scattered areas of confluent and ground-glass opacities. Calcified granuloma right lung base. There are mildly enlarged paratracheal and subcarinal lymph nodes -Echo: EF 70%, no diastolic dysfunction, mild-mod TR, mild-mod pulm HTN (44 mmHg), no pericardial effusion - Duoneb Q4H [facility] - Solumedrol 80 mg IVP Q6H - Robitussin DM 5 mL PO Q4H PRN - Meropenem 1 g Q8H - acyclovir IV Q8HR - Bactrim 250mg IVPB Q6hrs - Mycophenolate mofetil 500mg PO BID - Tylenol 650 mg PO Q6H PRN - Ibuprofen 600 mg PO TID PRN - Tramadol 25 mg PO TID PRN - Pulmonology recs (Dr. Vera) appreciated -Continue duoneb and steroids -Abx Recs: Stop antifungal. Start Bactrim and Acyclovir -Start Mycophenolate -Patient reports difficulty sleeping, start sleep medication -Patient on non-breather mask - f/u further ID recs (Dr. Ritter) - will continue to monitor patient's vital signs and symptoms. Acute sick euthyroid syndrome - TSH low (0.05, 0.17)- suppression exacerbated by IV steroids - Free T4 wnl/low (1.37, 0.76), tot T4 low (3.24, 3.22), T3 wnl (2.89) - Thyroid Abs negative - Endocrinology recs (Dr Ang) appreciated -serial labs Pancreatic abnormality -patient with estimated 10 kg unintentional weight loss in last two years - CEA elevated (6.3), CA 19-9 elevated (215), CA 125 elevated (46.8) - AFP wnl (1.4) - CT abdomen/pelvis: Question enlargement of the pancreatic head/uncinate process. It is unclear if this finding is the results of edematous pancreas/mass or collapsed adjacent duodenum which is difficult to distinguish. Recommend follow-up pancreatic CT for further assessment. - Pancreatic CT: Prominence of pancreatic head without discrete mass, likely reflects normal tissue. Recommend f/u in 3-6 months. -GI recs appreciated (Dr. Clifford) -no acute intervention -repeat imaging as outpatient Pre-diabetes mellitus, chronic - A1c 5.5 - elevated glucose levels on accuchecks - 2/2 to steroid use - ISS medium dose - lantus 10 U x 1 dose - Lantus 10 U at bedtime -accuchecks ACHS -hypoglycemic protocol Insomnia - Tylenol/Codeine 300/30 1 tablet QHS - Ambien 5mg PO HS PRN for insomnia PPx, Diet, Disposition -DVT ppx: heparin 5000 units Q12H -GI ppx: protonix 40 mg PO daily - pain control with tylenol (mild pain), ibuprofen (moderate pain), Ultram (severe pain) - Diet: dietary supplements: Ensure Enlive TID, MV daily, HHD -palliative care consult - Continue O2 supply and Neb Tx Assist with ADLs Use O2 while ambulates SS to assist with information about alf placement and Jacqu[place] care DNR/DNI - Physical therapy consult - eval and treat for patient sob when ambulating, patient desires to try to walk longer distances. - OT therapy - eval ability for patient to perform ADLs. <David Wellington H - Last Filed: 08/02/18 10:12> Objective - Vital Signs/Intake and Output Vital Signs (last 24 hours): Temp Pulse Resp BP Pulse Ox 98.0 F 88 18 150/83 97 08/02/18 07:00 08/02/18 07:00 08/02/18 07:00 08/02/18 07:00 08/02/18 07:00 Intake and Output: 08/02/18 08/02/18 06:59 18:59 Intake Total 200 Output Total 600 Balance -400 - Medications Medications: Current Medications Acetaminophen (Tylenol 325mg Tab) 650 mg PO Q6 PRN PRN Reason: Pain, Mild (1-3) Last Admin: 08/01/18 08:07 Dose: 650 mg Acetaminophen/Codeine Phosphate (Tylenol/Codeine 300 Mg/30 Mg) 1 ea PO HS [facility] Last Admin: 08/01/18 21:44 Dose: 1 ea Albuterol/Ipratropium (Duoneb 3 Mg/0.5 Mg (3 Ml) Ud) 3 ml INH RQ4 [facility] Last Admin: 08/02/18 07:35 Dose: 3 ml Dextrose (Dextrose 50% Inj) 0 ml IV STAT PRN; Protocol PRN Reason: Hypoglycemia Protocol Dextrose (Glutose 15) 0 gm PO ONCE PRN; Protocol PRN Reason: Hypoglycemia Protocol Glucagon (Glucagen Diagnostic Kit) 0 mg IM STAT PRN; Protocol PRN Reason: Hypoglycemia Protocol Guaifenesin/Dextromethorphan (Robitussin Dm) 5 ml PO Q4H PRN PRN Reason: Cough Last Admin: 07/31/18 21:39 Dose: 5 ml Heparin Sodium (Porcine) (Heparin) 5,000 units SC Q12 [facility] Last Admin: 08/02/18 09:42 Dose: 5,000 units Meropenem 1 gm/ Sodium (Chloride) 100 mls @ 100 mls/hr IVPB Q8H [facility]; Protocol Last Admin: 08/02/18 04:15 Dose: 100 mls/hr Acyclovir 500 mg/ Sodium (Chloride) 100 mls @ 100 mls/hr IV Q8H [facility]; Protocol Last Admin: 08/02/18 05:46 Dose: 100 mls/hr Ibuprofen (Motrin Tab) 600 mg PO TID PRN PRN Reason: Pain, moderate (4-7) Last Admin: 07/12/18 17:15 Dose: 600 mg Insulin Glargine (Lantus) 20 unit SC HS [facility] Last Admin: 08/01/18 21:45 Dose: 20 units Insulin Human Regular (Novolin R) 0 unit SC ACHS [facility]; Protocol Last Admin: 08/02/18 08:25 Dose: 3 units Methylprednisolone (Solu-Medrol) 80 mg IVP Q6 [facility] Last Admin: 08/02/18 05:48 Dose: 80 mg Multivitamins (Hexavitamin) 1 tab PO DAILY [facility] Last Admin: 08/02/18 09:41 Dose: 1 tab Mycophenolate Mofetil (Cellcept) 500 mg PO BID [facility] Last Admin: 08/02/18 09:41 Dose: 500 mg Pantoprazole Sodium (Protonix Ec Tab) 40 mg PO DAILY [facility] Last Admin: 08/02/18 09:41 Dose: 40 mg Tramadol HCl (Ultram) 25 mg PO TID PRN PRN Reason: Pain, severe (8-10) Last Admin: 07/27/18 17:28 Dose: 25 mg Zolpidem Tartrate (Ambien) 5 mg PO HS PRN PRN Reason: Insomnia Last Admin: 07/31/18 21:47 Dose: 5 mg - Labs Labs: 08/02/18 08:14 08/01/18 07:04 PT 12.6 SECONDS (9.7-12.2) H 07/27/18 07:05 INR 1.2 07/27/18 07:05 APTT 30 SECONDS (21-34) 07/27/18 07:05 Attending/Attestation - Attestation I have personally seen and examined this patient.: Yes I have fully participated in the care of the patient.: Yes I have reviewed all pertinent clinical information, including history, physical exam and plan: Yes Notes (Text): 08/02/18 10:08 Medical attending: Patient was seen and examined by me. Agree with the above note by the resident The patient was talking in full sentences. He says he preffers the NRBM, he tries to have it off for 10 min and then back on 10 min Since previous time I saw the patient he is now on Cellcept, Meropenom and also Acylovir. Overall prognosis is not good. Patient is now both DNR and DNI He is mostly bed bound now - he reports trying to work with PT however with great difficulty David Wellington
[2018-08-02] MEDS: Meropenem 1 GM in Sodium Chloride 0.9% 100 ML IVPB SCH ×3 (04:15→21:19)
[2018-08-02] MEDS: Acyclovir 500 MG in Sodium Chloride 0.9% 100 ML IV SCH ×2 (05:46→13:44)
[2018-08-02] MEDS ORDERED: Sod Polystyrene Sulf 15 gm/60 ml Susp PO ONE (07:29)
[2018-08-02] MEDS: (Novolin R) Insulin Human Regular 100 units/ml vial SC SCH ×4 (08:25→21:21)
[2018-08-02 08:26] LABS: BASO % 0.2 % (0.0-2.0); HEMOGLOBIN 14.5 g/dL (12.0-18.0); LYMPH # 0.3 K/uL (1.0-4.3); LYMPH % 2.1 % (20.0-40.0); MEAN CELL VOLUME 97.3 fL (80.0-94.0); MEAN CORPUSCULAR HEMOGLOBIN 32.5 pg (27.0-31.0); MEAN CORPUSCULAR HGB CONC 33.5 g/dL (33.0-37.0); MEAN PLATELET VOLUME 9.6 fL (7.2-11.7); MONO # 0.2 K/uL (0.0-0.8); NEUT # 11.9 K/uL (1.8-7.0); NEUT % 95.7 % (50.0-75.0); PLATELET COUNT 142 K/uL (130-400); RBC 4.46 Mil/uL (4.40-5.90); WHITE BLOOD COUNT 12.4 K/uL (4.8-10.8)
[2018-08-02] MEDS: Multiple Vitamins Tab PO SCH (09:41)
[2018-08-02] MEDS: Pantoprazole 40 mg EC Tab PO SCH (09:41)
[2018-08-02 10:32] LABS: LYMPHOCYTE 4 % (20-40); MONOCYTE 4 % (0-10); NEUTROPHIL 92 % (50-75); TOTAL CELLS COUNTED 100
[2018-08-02 10:33] LABS: ANISOCYTOSIS SLIGHT; OVALOCYTES SLIGHT; PLATELET ESTIMATE NORMAL (NORMAL)
[2018-08-02] MEDS: Acetaminophen-Codeine 300/30 mg Tab PO SCH (21:20)
[2018-08-02] MEDS: (Lantus) Insulin Glargine, Recombinant SC SCH (21:20)
[2018-08-03] MEDS: Albuterol-Ipratrop 3 mg / 0.5 (3 ml) UD INH SCH ×6 (00:25→19:57)
[2018-08-03] MEDS: MethylPREDNISolone 40 mg Vial IVP SCH ×4 (00:30→17:41)
[2018-08-03] MEDS: Acyclovir 500 MG in Sodium Chloride 0.9% 100 ML IV SCH ×4 (00:35→22:05)
[2018-08-03] MEDS: Meropenem 1 GM in Sodium Chloride 0.9% 100 ML IVPB SCH ×3 (04:25→20:59)
--- NOTE | 2018-08-03 06:15 | CP.PCM.PN ---
<Adrian Tarango - Last Filed: 08/03/18 14:09> Subjective - Date & Time of Evaluation Date of Evaluation: 08/03/18 Time of Evaluation: 06:15 - Subjective Subjective: Progress note for Dr David Wellington Patient is seen and examined at bedside. Patient states feeling uncomfortable this morning, having trouble sleeping. Reports feeling bothered by the noise emitted by the IV machine. Patient continues to complain of shortness of breath that comes and goes. Denies any cough at this times, but reports having 1-2 x dry cough a day. States he is not getting enough food, like a 1/2 sandwich, and is worried about having weakness and muscle wasting in his lower extremities. Patient denies fevers, chills, chest pain, shortness of breath, abdominal pain, n/v/d/c, or urinary symptoms. Objective - Vital Signs/Intake and Output Vital Signs (last 24 hours): Temp Pulse Resp BP Pulse Ox 97.9 F 104 H 20 132/85 99 08/02/18 23:00 08/02/18 23:00 08/02/18 23:00 08/02/18 23:00 08/02/18 23:00 Intake and Output: 08/02/18 08/03/18 18:59 06:59 Intake Total 850 900 Output Total 500 1000 Balance 350 -100 - Medications Medications: Current Medications Acetaminophen (Tylenol 325mg Tab) 650 mg PO Q6 PRN PRN Reason: Pain, Mild (1-3) Last Admin: 08/01/18 08:07 Dose: 650 mg Acetaminophen/Codeine Phosphate (Tylenol/Codeine 300 Mg/30 Mg) 1 ea PO HS [facility] Last Admin: 08/02/18 21:20 Dose: 1 ea Albuterol/Ipratropium (Duoneb 3 Mg/0.5 Mg (3 Ml) Ud) 3 ml INH RQ4 [facility] Last Admin: 08/03/18 04:59 Dose: 3 ml Dextrose (Dextrose 50% Inj) 0 ml IV STAT PRN; Protocol PRN Reason: Hypoglycemia Protocol Dextrose (Glutose 15) 0 gm PO ONCE PRN; Protocol PRN Reason: Hypoglycemia Protocol Glucagon (Glucagen Diagnostic Kit) 0 mg IM STAT PRN; Protocol PRN Reason: Hypoglycemia Protocol Guaifenesin/Dextromethorphan (Robitussin Dm) 5 ml PO Q4H PRN PRN Reason: Cough Last Admin: 07/31/18 21:39 Dose: 5 ml Heparin Sodium (Porcine) (Heparin) 5,000 units SC Q12 [facility] Last Admin: 08/02/18 21:20 Dose: 5,000 units Meropenem 1 gm/ Sodium (Chloride) 100 mls @ 100 mls/hr IVPB Q8H [facility]; Protocol Last Admin: 08/03/18 04:25 Dose: 100 mls/hr Acyclovir 500 mg/ Sodium (Chloride) 100 mls @ 100 mls/hr IV Q8H [facility]; Protocol Last Admin: 08/03/18 06:06 Dose: 100 mls/hr Ibuprofen (Motrin Tab) 600 mg PO TID PRN PRN Reason: Pain, moderate (4-7) Last Admin: 07/12/18 17:15 Dose: 600 mg Insulin Glargine (Lantus) 20 unit SC HS [facility] Last Admin: 08/02/18 21:20 Dose: 20 units Insulin Human Regular (Novolin R) 0 unit SC ACHS [facility]; Protocol Last Admin: 08/02/18 21:21 Dose: Not Given Methylprednisolone (Solu-Medrol) 80 mg IVP Q6 [facility] Last Admin: 08/03/18 06:05 Dose: 80 mg Multivitamins (Hexavitamin) 1 tab PO DAILY [facility] Last Admin: 08/02/18 09:41 Dose: 1 tab Mycophenolate Mofetil (Cellcept) 500 mg PO BID [facility] Last Admin: 08/02/18 18:48 Dose: 500 mg Pantoprazole Sodium (Protonix Ec Tab) 40 mg PO DAILY [facility] Last Admin: 08/02/18 09:41 Dose: 40 mg Tramadol HCl (Ultram) 25 mg PO TID PRN PRN Reason: Pain, severe (8-10) Last Admin: 07/27/18 17:28 Dose: 25 mg Zolpidem Tartrate (Ambien) 5 mg PO HS PRN PRN Reason: Insomnia Last Admin: 07/31/18 21:47 Dose: 5 mg - Labs Labs: 08/02/18 08:14 08/01/18 07:04 PT 12.6 SECONDS (9.7-12.2) H 07/27/18 07:05 INR 1.2 07/27/18 07:05 APTT 30 SECONDS (21-34) 07/27/18 07:05 - Constitutional Appears: No Acute Distress, Cachectic, Chronically Ill - Head Exam Head Exam: ATRAUMATIC, NORMAL INSPECTION, NORMOCEPHALIC - Eye Exam Eye Exam: EOMI, Normal appearance - ENT Exam ENT Exam: Mucous Membranes Moist, Normal Exam - Neck Exam Neck Exam: Full ROM, Normal Inspection - Respiratory Exam Respiratory Exam: Rhonchi. absent: Chest Wall Tenderness Additional comments: crackles ausculatated loudest on right and left middle and lower lobes. - Cardiovascular Exam Cardiovascular Exam: Tachycardia, REGULAR RHYTHM, +S1, +S2 - GI/Abdominal Exam GI & Abdominal Exam: Soft, Normal Bowel Sounds. absent: Distended, Guarding, Tenderness - Extremities Exam Extremities Exam: Full ROM. absent: Tenderness Additional comments: muscle wasting bilateral calfs - Back Exam Back Exam: Full ROM - Neurological Exam Neurological Exam: Alert, Awake, CN II-XII Intact, Oriented x3 - Psychiatric Exam Psychiatric exam: Normal Affect, Normal Mood - Skin Skin Exam: Dry, Intact, Normal Color, Warm Assessment and Plan - Assessment and Plan (Free Text) Plan: Interstitial pulmonary fibrosis -patient has history of tobacco use and environmental exposure from work -patient is from [place], homeless, no BC vaccine -continues to be afebrile(97F), stable @ WBC 13.8 (07/29) - BiPAP as needed, nonrebreather mask -AFB sputum culture x 3 negative, isolation precautions d/c'd -UDS negative -HIV negative -Rapid flu negative -Mycoplasma negative -ProBNP 1540 -ESR 106 -Trop negative x2 -PAULO negative -SRP Ab negative -Blood Cx no growth -Sputum Cx: yeast species -Bronchial Cx: Ramonita albicans -Bronchoscopy Biopsy: fibrosis, acute inflammation, emphysematous changes -Bronchoscopy washings: no malignant cells Pathology report done at [facility] from right lower lobe, bronchoscopic biopsy - Acute and organizing diffuse alveolar damage with minimal patchy scarring in no particular pattern - interstitial fibrosis, emphysematous change and acute inflammation - radiological correlation and wedge biopsy may be helpful in classification. -CXR: peripheral interstitial and to lesser extent confluent changes bilaterally likely chronic in nature -Repeat CXR (07/26): no significant interval changes -CT chest: Findings consistent with diffuse significant interstitial fibrosis with what probably represents paraseptal emphysematous changes and bronchiectasis. There are scattered areas of confluent and ground-glass opacities. Calcified granuloma right lung base. There are mildly enlarged paratracheal and subcarinal lymph nodes -Echo: EF 70%, no diastolic dysfunction, mild-mod TR, mild-mod pulm HTN (44 mmHg), no pericardial effusion - Duoneb Q4H [facility] - Solumedrol 80 mg IVP Q6H - Robitussin DM 5 mL PO Q4H PRN - Meropenem 1 g Q8H - acyclovir IV Q8HR - Mycophenolate mofetil 500mg PO BID - Tylenol 650 mg PO Q6H PRN - Ibuprofen 600 mg PO TID PRN - Tramadol 25 mg PO TID PRN - Pulmonology recs (Dr. Vera) appreciated -Continue duoneb and steroids -Abx Recs: Stop antifungal. Start Bactrim and Acyclovir -Start Mycophenolate -Patient reports difficulty sleeping, start sleep medication -Patient on non-breather mask - f/u further ID recs (Dr. Ritter) - will continue to monitor patient's vital signs and symptoms. Acute sick euthyroid syndrome - TSH low (0.05, 0.17)- suppression exacerbated by IV steroids - Free T4 wnl/low (1.37, 0.76), tot T4 low (3.24, 3.22), T3 wnl (2.89) - Thyroid Abs negative - Endocrinology recs (Dr Ang) appreciated -serial labs Pancreatic abnormality -patient with estimated 10 kg unintentional weight loss in last two years - CEA elevated (6.3), CA 19-9 elevated (215), CA 125 elevated (46.8) - AFP wnl (1.4) - CT abdomen/pelvis: Question enlargement of the pancreatic head/uncinate process. It is unclear if this finding is the results of edematous pancreas/mass or collapsed adjacent duodenum which is difficult to distinguish. Recommend follow-up pancreatic CT for further assessment. - Pancreatic CT: Prominence of pancreatic head without discrete mass, likely reflects normal tissue. Recommend f/u in 3-6 months. -GI recs appreciated (Dr. Clifford) -no acute intervention -repeat imaging as outpatient Pre-diabetes mellitus, chronic - A1c 5.5 - elevated glucose levels on accuchecks - 2/2 to steroid use - ISS medium dose - changed Lantus from 20 to Lantus 25 Units HS -accuchecks ACHS -hypoglycemic protocol Insomnia - Tylenol/Codeine 300/30 1 tablet QHS - Ambien 5mg PO HS PRN for insomnia - Patient indicated that he can ask for Ambien tonight if having problem sleeping. PPx, Diet, Disposition -DVT ppx: heparin 5000 units Q12H -GI ppx: protonix 40 mg PO daily - pain control with tylenol (mild pain), ibuprofen (moderate pain), Ultram (severe pain) - Diet: dietary supplements: Ensure Enlive TID, MV daily, HHD -palliative care consult - Continue O2 supply and Neb Tx Assist with ADLs Use O2 while ambulates SS to assist with information about retirement placement and Jacquelin care DNR/DNI - Physical therapy consult - HR 118 at rest, 130 activity/ambulation; 96% at rest + non rebreather, 78% during activities + non rebreather. Noted visible moderate SOB during ambulation inspite of + non rebreather - continue to treat - OT therapy - eval ability for patient to perform ADLs. Plan discussed with Dr Eliz Tarango <David Wellington - Last Filed: 08/03/18 14:18> Objective - Vital Signs/Intake and Output Vital Signs (last 24 hours): Temp Pulse Resp BP Pulse Ox 98.0 F 90 20 136/86 100 08/03/18 07:00 08/03/18 07:00 08/03/18 07:00 08/03/18 07:00 08/03/18 07:00 Intake and Output: 08/03/18 08/03/18 06:59 18:59 Intake Total 900 580 Output Total 1000 600 Balance -100 -20 - Medications Medications: Current Medications Acetaminophen (Tylenol 325mg Tab) 650 mg PO Q6 PRN PRN Reason: Pain, Mild (1-3) Last Admin: 08/01/18 08:07 Dose: 650 mg Acetaminophen/Codeine Phosphate (Tylenol/Codeine 300 Mg/30 Mg) 1 ea PO HS [facility] Last Admin: 08/02/18 21:20 Dose: 1 ea Albuterol/Ipratropium (Duoneb 3 Mg/0.5 Mg (3 Ml) Ud) 3 ml INH RQ4 [facility] Last Admin: 08/03/18 11:15 Dose: 3 ml Dextrose (Dextrose 50% Inj) 0 ml IV STAT PRN; Protocol PRN Reason: Hypoglycemia Protocol Dextrose (Glutose 15) 0 gm PO ONCE PRN; Protocol PRN Reason: Hypoglycemia Protocol Glucagon (Glucagen Diagnostic Kit) 0 mg IM STAT PRN; Protocol PRN Reason: Hypoglycemia Protocol Guaifenesin/Dextromethorphan (Robitussin Dm) 5 ml PO Q4H PRN PRN Reason: Cough Last Admin: 07/31/18 21:39 Dose: 5 ml Heparin Sodium (Porcine) (Heparin) 5,000 units SC Q12 [facility] Last Admin: 08/03/18 09:42 Dose: 5,000 units Meropenem 1 gm/ Sodium (Chloride) 100 mls @ 100 mls/hr IVPB Q8H [facility]; Protocol Last Admin: 08/03/18 12:38 Dose: 100 mls/hr Acyclovir 500 mg/ Sodium (Chloride) 100 mls @ 100 mls/hr IV Q8H [facility]; Protocol Last Admin: 08/03/18 13:39 Dose: 100 mls/hr Ibuprofen (Motrin Tab) 600 mg PO TID PRN PRN Reason: Pain, moderate (4-7) Last Admin: 07/12/18 17:15 Dose: 600 mg Insulin Glargine (Lantus) 25 unit SC HS [facility] Insulin Human Regular (Novolin R) 0 unit SC ACHS [facility]; Protocol Last Admin: 08/03/18 12:35 Dose: 8 units Methylprednisolone (Solu-Medrol) 80 mg IVP Q6 [facility] Last Admin: 08/03/18 13:42 Dose: 80 mg Multivitamins (Hexavitamin) 1 tab PO DAILY [facility] Last Admin: 08/03/18 09:42 Dose: 1 tab Mycophenolate Mofetil (Cellcept) 500 mg PO BID [facility] Last Admin: 08/03/18 09:42 Dose: 500 mg Pantoprazole Sodium (Protonix Ec Tab) 40 mg PO DAILY [facility] Last Admin: 08/03/18 09:42 Dose: 40 mg Tramadol HCl (Ultram) 25 mg PO TID PRN PRN Reason: Pain, severe (8-10) Last Admin: 07/27/18 17:28 Dose: 25 mg Zolpidem Tartrate (Ambien) 5 mg PO HS PRN PRN Reason: Insomnia Last Admin: 07/31/18 21:47 Dose: 5 mg - Labs Labs: 08/03/18 06:23 08/01/18 07:04 PT 12.6 SECONDS (9.7-12.2) H 07/27/18 07:05 INR 1.2 07/27/18 07:05 APTT 30 SECONDS (21-34) 07/27/18 07:05 Attending/Attestation - Attestation I have personally seen and examined this patient.: Yes I have fully participated in the care of the patient.: Yes I have reviewed all pertinent clinical information, including history, physical exam and plan: Yes Notes (Text): 08/03/18 14:16 Medical attending: Patient was seen and examined by me. Reviewed the above note by the resident and agree with the above Unfortunately he is still very short of breath at rest. He reports every ten minutes trying to use the NRBM. As mentioned previously patient is now on cellcpt, IV merropenom, and also as well David Wellington
[2018-08-03 06:31] LABS: BASO % 0.1 % (0.0-2.0); HEMOGLOBIN 14.5 g/dL (12.0-18.0); LYMPH # 0.2 K/uL (1.0-4.3); LYMPH % 1.9 % (20.0-40.0); MEAN CELL VOLUME 97.1 fL (80.0-94.0); MEAN CORPUSCULAR HEMOGLOBIN 31.8 pg (27.0-31.0); MEAN CORPUSCULAR HGB CONC 32.7 g/dL (33.0-37.0); MEAN PLATELET VOLUME 9.9 fL (7.2-11.7); MONO # 0.2 K/uL (0.0-0.8); MONO % 1.8 % (0.0-10.0); NEUT # 11.4 K/uL (1.8-7.0); NEUT % 96.2 % (50.0-75.0); PLATELET COUNT 128 K/uL (130-400); RBC 4.55 Mil/uL (4.40-5.90); RED CELL DISTRIBUTION WIDTH 16.2 % (11.5-14.5); WHITE BLOOD COUNT 11.9 K/uL (4.8-10.8)
[2018-08-03] MEDS: (Novolin R) Insulin Human Regular 100 units/ml vial SC SCH ×4 (08:22→21:36)
[2018-08-03 09:12] LABS: BANDS 1 % (0-2); LYMPHOCYTE 3 % (20-40); MONOCYTE 2 % (0-10); NEUTROPHIL 94 % (50-75); TOTAL CELLS COUNTED 100
[2018-08-03 09:13] LABS: PLATELET ESTIMATE SLIGHTLY DECREASED (NORMAL)
[2018-08-03] MEDS: Pantoprazole 40 mg EC Tab PO SCH (09:42)
[2018-08-03] MEDS: Multiple Vitamins Tab PO SCH (09:42)
[2018-08-03] MEDS: Acetaminophen-Codeine 300/30 mg Tab PO SCH (20:59)
[2018-08-03] MEDS: (Lantus) Insulin Glargine, Recombinant SC SCH (21:19)
[2018-08-04] MEDS: MethylPREDNISolone 40 mg Vial IVP SCH ×4 (00:10→17:39)
[2018-08-04] MEDS: Albuterol-Ipratrop 3 mg / 0.5 (3 ml) UD INH SCH ×6 (01:02→19:31)
[2018-08-04] MEDS: Meropenem 1 GM in Sodium Chloride 0.9% 100 ML IVPB SCH ×3 (04:30→21:41)
[2018-08-04] MEDS: Acyclovir 500 MG in Sodium Chloride 0.9% 100 ML IV SCH ×3 (05:30→22:59)
[2018-08-04] MEDS: (Novolin R) Insulin Human Regular 100 units/ml vial SC SCH ×4 (08:26→21:40)
[2018-08-04] MEDS: Multiple Vitamins Tab PO SCH (09:03)
[2018-08-04] MEDS: Pantoprazole 40 mg EC Tab PO SCH (09:03)
--- NOTE | 2018-08-04 14:55 | CP.PCM.PCO ---
Physician Communication Note - Physician Communication Note Physician Communication Note: Heparin held for low and decreasing platelets
--- NOTE | 2018-08-04 15:05 | CP.PCM.PN ---
Subjective - Date & Time of Evaluation Date of Evaluation: 08/04/18 Time of Evaluation: 10:00 - Subjective Subjective: Patient examined at bedside. No acute overnight events. Pt reports he has some difficulty tolerating BiPAP overnight due to abdominal pain. Breathing well on non-rebreather. Patient reports no change in symptoms, denies chest pain. nausea, diarrhea. Pt reports he attempted to reach out to family with no success. Discussion was had in regards to his prognosis, and little chance of improvement in pulmonary function and symptomatic presentation as he is still fully dependant on O2 via non-rebreather, and IV steroids. Pt was explained that his condition is deteriorating, and he is in need of in patient treatment. Objective - Vital Signs/Intake and Output Vital Signs (last 24 hours): Temp Pulse Resp BP Pulse Ox 97.5 F L 90 20 139/91 H 98 08/04/18 07:56 08/04/18 07:56 08/04/18 07:56 08/04/18 07:56 08/04/18 07:56 Intake and Output: 08/04/18 08/04/18 06:59 18:59 Intake Total 530 700 Output Total 800 Balance -270 700 - Medications Medications: Current Medications Acetaminophen (Tylenol 325mg Tab) 650 mg PO Q6 PRN PRN Reason: Pain, Mild (1-3) Last Admin: 08/01/18 08:07 Dose: 650 mg Acetaminophen/Codeine Phosphate (Tylenol/Codeine 300 Mg/30 Mg) 1 ea PO HS [facility] Last Admin: 08/03/18 20:59 Dose: 1 ea Albuterol/Ipratropium (Duoneb 3 Mg/0.5 Mg (3 Ml) Ud) 3 ml INH RQ4 [facility] Last Admin: 08/04/18 11:33 Dose: 3 ml Dextrose (Dextrose 50% Inj) 0 ml IV STAT PRN; Protocol PRN Reason: Hypoglycemia Protocol Dextrose (Glutose 15) 0 gm PO ONCE PRN; Protocol PRN Reason: Hypoglycemia Protocol Glucagon (Glucagen Diagnostic Kit) 0 mg IM STAT PRN; Protocol PRN Reason: Hypoglycemia Protocol Guaifenesin/Dextromethorphan (Robitussin Dm) 5 ml PO Q4H PRN PRN Reason: Cough Last Admin: 07/31/18 21:39 Dose: 5 ml Heparin Sodium (Porcine) (Heparin) 5,000 units SC Q12 [facility] Last Admin: 08/04/18 09:03 Dose: 5,000 units Meropenem 1 gm/ Sodium (Chloride) 100 mls @ 100 mls/hr IVPB Q8H [facility]; Protocol Last Admin: 08/04/18 12:09 Dose: 100 mls/hr Acyclovir 500 mg/ Sodium (Chloride) 100 mls @ 100 mls/hr IV Q8H [facility]; Protocol Last Admin: 08/04/18 14:19 Dose: 100 mls/hr Ibuprofen (Motrin Tab) 600 mg PO TID PRN PRN Reason: Pain, moderate (4-7) Last Admin: 07/12/18 17:15 Dose: 600 mg Insulin Glargine (Lantus) 25 unit SC HS [facility] Last Admin: 08/03/18 21:19 Dose: 25 unit Insulin Human Regular (Novolin R) 0 unit SC ACHS [facility]; Protocol Last Admin: 08/04/18 12:10 Dose: 10 units Methylprednisolone (Solu-Medrol) 80 mg IVP Q6 [facility] Last Admin: 08/04/18 12:10 Dose: 80 mg Multivitamins (Hexavitamin) 1 tab PO DAILY [facility] Last Admin: 08/04/18 09:03 Dose: 1 tab Mycophenolate Mofetil (Cellcept) 500 mg PO BID [facility] Last Admin: 08/04/18 09:03 Dose: 500 mg Pantoprazole Sodium (Protonix Ec Tab) 40 mg PO DAILY [facility] Last Admin: 08/04/18 09:03 Dose: 40 mg Tramadol HCl (Ultram) 25 mg PO TID PRN PRN Reason: Pain, severe (8-10) Last Admin: 07/27/18 17:28 Dose: 25 mg Zolpidem Tartrate (Ambien) 5 mg PO HS PRN PRN Reason: Insomnia Last Admin: 08/03/18 21:08 Dose: 5 mg - Labs Labs: 08/03/18 06:23 08/01/18 07:04 PT 12.6 SECONDS (9.7-12.2) H 07/27/18 07:05 INR 1.2 07/27/18 07:05 APTT 30 SECONDS (21-34) 07/27/18 07:05 - Additional Findings Additional findings: - Constitutional Appears: Chronically Ill, cachectic - Head Exam Head Exam: ATRAUMATIC, NORMOCEPHALIC - Eye Exam Eye Exam: Normal appearance - ENT Exam ENT Exam: Mucous Membranes Moist - Respiratory Exam Respiratory Exam: Accessory Muscle Use, Rales. absent: Rhonchi, Wheezes Additional comments: bilateral crackles at mid and lower lobes - Cardiovascular Exam Cardiovascular Exam: Tachycardia, REGULAR RHYTHM, +S1, +S2 - GI/Abdominal Exam GI & Abdominal Exam: Soft, Normal Bowel Sounds. absent: Tenderness - Extremities Exam Extremities Exam: absent: Calf Tenderness Additional comments: IV access in R hand - Neurological Exam Neurological Exam: Alert, Awake, Oriented x3 - Psychiatric Exam Psychiatric exam: Anxious - Skin Skin Exam: Normal Color, Warm Assessment and Plan - Assessment and Plan (Free Text) Assessment: 63 year old male admitted for evaluation and treatment of dyspnea 2/2 ILD Plan: Interstitial pulmonary fibrosis -patient has history of tobacco use and environmental exposure from work -patient is from [place], homeless, no BC vaccine -continues to be afebrile and mild leukocytosis 2/2 steroids -BiPAP as needed, nonrebreather mask at 15% -AFB sputum culture x 3 negative -HIV negative -Rapid flu negative -Mycoplasma negative -PAULO negative -SRP Ab negative -Blood Cx no growth -Sputum Cx: yeast species -Bronchial Cx: Ramonita albicans -Bronchoscopy Biopsy: fibrosis, acute inflammation, emphysematous changes -Bronchoscopy washings: no malignant cells Pathology report done at [facility] from right lower lobe, bronchoscopic biopsy - Acute and organizing diffuse alveolar damage with minimal patchy scarring in no particular pattern - interstitial fibrosis, emphysematous change and acute inflammation - radiological correlation and wedge biopsy may be helpful in classification. -CXR: peripheral interstitial and to lesser extent confluent changes bilaterally likely chronic in nature -Repeat CXR (07/26): no significant interval changes -CT chest: Findings consistent with diffuse significant interstitial fibrosis with what probably represents paraseptal emphysematous changes and bronchiectasis. There are scattered areas of confluent and ground-glass opacities. Calcified granuloma right lung base. There are mildly enlarged paratracheal and subcarinal lymph nodes -Echo: EF 70%, no diastolic dysfunction, mild-mod TR, mild-mod pulm HTN (44 mmHg), no pericardial effusion - Duoneb Q4H [facility] - Solumedrol 80 mg IVP Q6H - Robitussin DM 5 mL PO Q4H PRN - Meropenem 1 g Q8H - acyclovir IV Q8HR - Mycophenolate mofetil 500mg PO BID - Tylenol 650 mg PO Q6H PRN - Ibuprofen 600 mg PO TID PRN - Tramadol 25 mg PO TID PRN - Pulmonology recs (Dr. Vera) appreciated -Continue duoneb and steroids -Abx Recs: Stop antifungal. Start Bactrim and Acyclovir -Start Mycophenolate -Patient reports difficulty sleeping, start sleep medication -Patient on non-breather mask - f/u further ID recs (Dr. Ritter) - will continue to monitor patient's vital signs and symptoms. Acute sick euthyroid syndrome - TSH low (0.05, 0.17)- suppression exacerbated by IV steroids - Free T4 wnl/low (1.37, 0.76), tot T4 low (3.24, 3.22), T3 wnl (2.89) - Thyroid Abs negative - Endocrinology recs (Dr Ang) appreciated -serial labs Pancreatic abnormality -patient with estimated 10 kg unintentional weight loss in last two years - CEA elevated (6.3), CA 19-9 elevated (215), CA 125 elevated (46.8) - AFP wnl (1.4) - CT abdomen/pelvis: Question enlargement of the pancreatic head/uncinate process. It is unclear if this finding is the results of edematous pancreas/mass or collapsed adjacent duodenum which is difficult to distinguish. Recommend follow-up pancreatic CT for further assessment. - Pancreatic CT: Prominence of pancreatic head without discrete mass, likely reflects normal tissue. Recommend f/u in 3-6 months. -GI recs appreciated (Dr. Clifford) -no acute intervention -repeat imaging as outpatient Pre-diabetes mellitus, chronic - A1c 5.5 - elevated glucose levels on accuchecks - 2/2 to steroid use - ISS medium dose - Lantus 25 U at bedtime -accuchecks ACHS -hypoglycemic protocol Insomnia - Tylenol/Codeine 300/30 1 tablet QHS - Ambien 5mg PO HS PRN for insomnia PPx, Diet, Disposition -DVT ppx: heparin 5000 units [id number] due to thrombocytopenia -GI ppx: protonix 40 mg PO daily - pain control with tylenol (mild pain), ibuprofen (moderate pain), Ultram (severe pain) - Diet: dietary supplements: Ensure Enlive TID, MV daily, HHD -palliative care consult - Continue O2 supply and Neb Tx Assist with ADLs Use O2 while ambulates SS to assist with information about residential placement and Jacquelin care DNR/DNI - Physical therapy consult - eval and treat for patient sob when ambulating, patient desires to try to walk longer distances. - OT therapy - eval ability for patient to perform ADLs. Case discussed with Dr. Wellington -Irasema Gibson, PGY-1
[2018-08-04 16:31] LABS: BASO % 0.1 % (0.0-2.0); EOS % 0.1 % (0.0-4.0); HEMOGLOBIN 14.3 g/dL (12.0-18.0); LYMPH # 0.2 K/uL (1.0-4.3); LYMPH % 1.9 % (20.0-40.0); MEAN CELL VOLUME 97.3 fL (80.0-94.0); MEAN CORPUSCULAR HEMOGLOBIN 31.4 pg (27.0-31.0); MEAN CORPUSCULAR HGB CONC 32.3 g/dL (33.0-37.0); MEAN PLATELET VOLUME 9.3 fL (7.2-11.7); MONO # 0.3 K/uL (0.0-0.8); MONO % 2.2 % (0.0-10.0); NEUT % 95.7 % (50.0-75.0); PLATELET COUNT 125 K/uL (130-400); RBC 4.54 Mil/uL (4.40-5.90); RED CELL DISTRIBUTION WIDTH 15.8 % (11.5-14.5); WHITE BLOOD COUNT 11.5 K/uL (4.8-10.8)
[2018-08-04 16:54] LABS: ALBUMIN 2.9 g/dL (3.5-5.0); ALT/SGPT 51 U/L (21-72); AST/SGOT 31 U/L (17-59); BLOOD UREA NITROGEN 24 mg/dL (9-20); CALCIUM 8.2 mg/dl (8.6-10.4); GFR NON-AFRICAN AMERICAN > 60
[2018-08-04 17:30] LABS: BANDS 1 % (0-2); LYMPHOCYTE 5 % (20-40); TOTAL CELLS COUNTED 100
[2018-08-04 17:31] LABS: MONOCYTE 1 % (0-10); NEUTROPHIL 93 % (50-75); PLATELET ESTIMATE SLIGHTLY DECREASED (NORMAL)
[2018-08-04] MEDS: Acetaminophen-Codeine 300/30 mg Tab PO SCH (21:40)
[2018-08-04] MEDS: (Lantus) Insulin Glargine, Recombinant SC SCH (21:40)
[2018-08-05] MEDS: Albuterol-Ipratrop 3 mg / 0.5 (3 ml) UD INH SCH ×6 (00:06→19:10)
[2018-08-05] MEDS: Meropenem 1 GM in Sodium Chloride 0.9% 100 ML IVPB SCH ×3 (04:54→20:06)
[2018-08-05] MEDS: Acyclovir 500 MG in Sodium Chloride 0.9% 100 ML IV SCH ×3 (05:58→21:42)
--- NOTE | 2018-08-05 07:32 | CP.PCM.PN ---
<Deepti Simon - Last Filed: 08/05/18 14:02> Subjective - Date & Time of Evaluation Date of Evaluation: 08/05/18 Time of Evaluation: 07:29 - Subjective Subjective: Deepti Simon PGY1 Progress Note for Dr. Wellington Pt was examined at bedside this morning. He has no complaints today. He denies shortness of breath, chest pain, abdominal pain, nausea, vomiting, diarrhea, dysuria. Objective - Vital Signs/Intake and Output Vital Signs (last 24 hours): Temp Pulse Resp BP Pulse Ox 98.2 F 115 H 20 127/87 96 08/05/18 00:09 08/05/18 00:09 08/05/18 00:09 08/05/18 00:09 08/05/18 00:09 Intake and Output: 08/05/18 08/05/18 06:59 18:59 Intake Total 1050 Output Total 1000 Balance 50 - Medications Medications: Current Medications Acetaminophen (Tylenol 325mg Tab) 650 mg PO Q6 PRN PRN Reason: Pain, Mild (1-3) Last Admin: 08/01/18 08:07 Dose: 650 mg Acetaminophen/Codeine Phosphate (Tylenol/Codeine 300 Mg/30 Mg) 1 ea PO HS [facility] Last Admin: 08/04/18 21:40 Dose: 1 ea Albuterol/Ipratropium (Duoneb 3 Mg/0.5 Mg (3 Ml) Ud) 3 ml INH RQ4 [facility] Last Admin: 08/05/18 03:41 Dose: 3 ml Dextrose (Dextrose 50% Inj) 0 ml IV STAT PRN; Protocol PRN Reason: Hypoglycemia Protocol Dextrose (Glutose 15) 0 gm PO ONCE PRN; Protocol PRN Reason: Hypoglycemia Protocol Glucagon (Glucagen Diagnostic Kit) 0 mg IM STAT PRN; Protocol PRN Reason: Hypoglycemia Protocol Guaifenesin/Dextromethorphan (Robitussin Dm) 5 ml PO Q4H PRN PRN Reason: Cough Last Admin: 07/31/18 21:39 Dose: 5 ml Heparin Sodium (Porcine) (Heparin) 5,000 units SC Q12 [facility] Last Admin: 08/04/18 09:03 Dose: 5,000 units Meropenem 1 gm/ Sodium (Chloride) 100 mls @ 100 mls/hr IVPB Q8H [facility]; Protocol Last Admin: 08/05/18 04:54 Dose: 100 mls/hr Acyclovir 500 mg/ Sodium (Chloride) 100 mls @ 100 mls/hr IV Q8H [facility]; Protocol Last Admin: 08/05/18 05:58 Dose: 100 mls/hr Ibuprofen (Motrin Tab) 600 mg PO TID PRN PRN Reason: Pain, moderate (4-7) Last Admin: 07/12/18 17:15 Dose: 600 mg Insulin Glargine (Lantus) 25 unit SC HS [facility] Last Admin: 08/04/18 21:40 Dose: 25 unit Insulin Human Regular (Novolin R) 0 unit SC ACHS [facility]; Protocol Last Admin: 08/04/18 21:40 Dose: 4 units Methylprednisolone (Solu-Medrol) 60 mg IV Q6 [facility] Last Admin: 08/05/18 05:58 Dose: 60 mg Multivitamins (Hexavitamin) 1 tab PO DAILY [facility] Last Admin: 08/04/18 09:03 Dose: 1 tab Mycophenolate Mofetil (Cellcept) 500 mg PO BID [facility] Last Admin: 08/04/18 17:39 Dose: 500 mg Pantoprazole Sodium (Protonix Ec Tab) 40 mg PO DAILY [facility] Last Admin: 08/04/18 09:03 Dose: 40 mg Tramadol HCl (Ultram) 25 mg PO TID PRN PRN Reason: Pain, severe (8-10) Last Admin: 07/27/18 17:28 Dose: 25 mg Zolpidem Tartrate (Ambien) 5 mg PO HS PRN PRN Reason: Insomnia Last Admin: 08/05/18 00:54 Dose: 5 mg - Labs Labs: 08/04/18 16:27 08/04/18 16:27 PT 12.6 SECONDS (9.7-12.2) H 07/27/18 07:05 INR 1.2 07/27/18 07:05 APTT 30 SECONDS (21-34) 07/27/18 07:05 - Additional Findings Additional findings: - Constitutional Appears: Chronically Ill, cachectic - Head Exam Head Exam: ATRAUMATIC, NORMOCEPHALIC - Eye Exam Eye Exam: Normal appearance - ENT Exam ENT Exam: Mucous Membranes Moist - Respiratory Exam Respiratory Exam: Accessory Muscle Use, Rales. absent: Rhonchi, Wheezes Additional comments: bilateral crackles at mid and lower lobes - Cardiovascular Exam Cardiovascular Exam: Tachycardia, REGULAR RHYTHM, +S1, +S2 - GI/Abdominal Exam GI & Abdominal Exam: Soft, Normal Bowel Sounds. absent: Tenderness - Extremities Exam Extremities Exam: absent: Calf Tenderness Additional comments: IV access in R hand - Neurological Exam Neurological Exam: Alert, Awake, Oriented x3 - Psychiatric Exam Psychiatric exam: Anxious - Skin Skin Exam: Normal Color, Warm Assessment and Plan - Assessment and Plan (Free Text) Assessment: 63 year old male admitted for evaluation and treatment of dyspnea 2/2 ILD Plan: Interstitial pulmonary fibrosis -patient has history of tobacco use and environmental exposure from work -patient is from [place], homeless, no BC vaccine -continues to be afebrile and mild leukocytosis 2/2 steroids -BiPAP as needed, nonrebreather mask at 15% -AFB sputum culture x 3 negative -HIV negative -Rapid flu negative -Mycoplasma negative -PAULO negative -SRP Ab negative -Blood Cx no growth -Sputum Cx: yeast species -Bronchial Cx: Ramonita albicans -Bronchoscopy Biopsy: fibrosis, acute inflammation, emphysematous changes -Bronchoscopy washings: no malignant cells Pathology report done at [facility] from right lower lobe, bronchoscopic biopsy - Acute and organizing diffuse alveolar damage with minimal patchy scarring in no particular pattern - interstitial fibrosis, emphysematous change and acute inflammation - radiological correlation and wedge biopsy may be helpful in classification. -CXR: peripheral interstitial and to lesser extent confluent changes bilaterally likely chronic in nature -Repeat CXR (07/26): no significant interval changes -CT chest: Findings consistent with diffuse significant interstitial fibrosis with what probably represents paraseptal emphysematous changes and bronchiectasis. There are scattered areas of confluent and ground-glass opacities. Calcified granuloma right lung base. There are mildly enlarged paratracheal and subcarinal lymph nodes -Echo: EF 70%, no diastolic dysfunction, mild-mod TR, mild-mod pulm HTN (44 mmHg), no pericardial effusion - Duoneb Q4H [facility] - Solumedrol 80 mg IVP Q6H - Robitussin DM 5 mL PO Q4H PRN - Meropenem 1 g Q8H - acyclovir IV Q8HR - Mycophenolate mofetil 500mg PO BID - Tylenol 650 mg PO Q6H PRN - Ibuprofen 600 mg PO TID PRN - Tramadol 25 mg PO TID PRN - Pulmonology recs (Dr. Vera) appreciated -Continue duoneb and steroids -Abx Recs: Stop antifungal. Start Bactrim and Acyclovir -Start Mycophenolate -Patient reports difficulty sleeping, start sleep medication -Patient on NRB mask - f/u further ID recs (Dr. Ritter) - will continue to monitor patient's vital signs and symptoms. Acute sick euthyroid syndrome - TSH low (0.05, 0.17)- suppression exacerbated by IV steroids - Free T4 wnl/low (1.37, 0.76), tot T4 low (3.24, 3.22), T3 wnl (2.89) - Thyroid Abs negative - Endocrinology recs (Dr Ang) appreciated -serial labs Pancreatic abnormality -patient with estimated 10 kg unintentional weight loss in last two years - CEA elevated (6.3), CA 19-9 elevated (215), CA 125 elevated (46.8) - AFP wnl (1.4) - CT abdomen/pelvis: Question enlargement of the pancreatic head/uncinate process. It is unclear if this finding is the results of edematous pancreas/mass or collapsed adjacent duodenum which is difficult to distinguish. Recommend follow-up pancreatic CT for further assessment. - Pancreatic CT: Prominence of pancreatic head without discrete mass, likely reflects normal tissue. Recommend f/u in 3-6 months. -GI recs appreciated (Dr. Clifford) -no acute intervention -repeat imaging as outpatient Pre-diabetes mellitus, chronic - A1c 5.5 - elevated glucose levels on accuchecks - 2/2 to steroid use - ISS medium dose - Lantus 25 U at bedtime -accuchecks ACHS -hypoglycemic protocol Insomnia - Tylenol/Codeine 300/30 1 tablet QHS - Ambien 5mg PO HS PRN for insomnia PPx, Diet, Disposition -DVT ppx: heparin 5000 units [id number] due to thrombocytopenia -GI ppx: protonix 40 mg PO daily - pain control with tylenol (mild pain), ibuprofen (moderate pain), Ultram (severe pain) - Diet: dietary supplements: Ensure Enlive TID, MV daily, HHD -palliative care consult - Continue O2 supply and Neb Tx Assist with ADLs Use O2 while ambulates SS to assist with information about [facility] placement and Jacquelin care DNR/DNI - Physical therapy consult - eval and treat for patient sob when ambulating, patient desires to try to walk longer distances. - OT therapy - eval ability for patient to perform ADLs. - labs q3d Pt seen and case discussed with Dr. Wellington <David Wellington - Last Filed: 08/05/18 14:41> Objective - Vital Signs/Intake and Output Vital Signs (last 24 hours): Temp Pulse Resp BP Pulse Ox 98.1 F 90 20 143/82 100 08/05/18 07:00 08/05/18 07:00 08/05/18 07:00 08/05/18 07:00 08/05/18 07:00 Intake and Output: 08/05/18 08/05/18 06:59 18:59 Intake Total 1050 Output Total 1000 Balance 50 - Medications Medications: Current Medications Acetaminophen (Tylenol 325mg Tab) 650 mg PO Q6 PRN PRN Reason: Pain, Mild (1-3) Last Admin: 08/01/18 08:07 Dose: 650 mg Acetaminophen/Codeine Phosphate (Tylenol/Codeine 300 Mg/30 Mg) 1 ea PO HS [facility] Last Admin: 08/04/18 21:40 Dose: 1 ea Albuterol/Ipratropium (Duoneb 3 Mg/0.5 Mg (3 Ml) Ud) 3 ml INH RQ4 [facility] Last Admin: 08/05/18 11:45 Dose: 3 ml Dextrose (Dextrose 50% Inj) 0 ml IV STAT PRN; Protocol PRN Reason: Hypoglycemia Protocol Dextrose (Glutose 15) 0 gm PO ONCE PRN; Protocol PRN Reason: Hypoglycemia Protocol Glucagon (Glucagen Diagnostic Kit) 0 mg IM STAT PRN; Protocol PRN Reason: Hypoglycemia Protocol Guaifenesin/Dextromethorphan (Robitussin Dm) 5 ml PO Q4H PRN PRN Reason: Cough Last Admin: 07/31/18 21:39 Dose: 5 ml Heparin Sodium (Porcine) (Heparin) 5,000 units SC Q12 [facility] Last Admin: 08/04/18 09:03 Dose: 5,000 units Meropenem 1 gm/ Sodium (Chloride) 100 mls @ 100 mls/hr IVPB Q8H [facility]; Protocol Last Admin: 08/05/18 12:15 Dose: 100 mls/hr Acyclovir 500 mg/ Sodium (Chloride) 100 mls @ 100 mls/hr IV Q8H [facility]; Protocol Last Admin: 08/05/18 14:39 Dose: 100 mls/hr Ibuprofen (Motrin Tab) 600 mg PO TID PRN PRN Reason: Pain, moderate (4-7) Last Admin: 07/12/18 17:15 Dose: 600 mg Insulin Glargine (Lantus) 25 unit SC HS [facility] Last Admin: 08/04/18 21:40 Dose: 25 unit Insulin Human Regular (Novolin R) 0 unit SC ACHS [facility]; Protocol Last Admin: 08/05/18 12:14 Dose: 6 units Methylprednisolone (Solu-Medrol) 60 mg IV Q6 [facility] Last Admin: 08/05/18 12:41 Dose: 60 mg Multivitamins (Hexavitamin) 1 tab PO DAILY [facility] Last Admin: 08/05/18 10:42 Dose: 1 tab Mycophenolate Mofetil (Cellcept) 500 mg PO BID [facility] Last Admin: 08/05/18 10:42 Dose: 500 mg Pantoprazole Sodium (Protonix Ec Tab) 40 mg PO DAILY [facility] Last Admin: 08/05/18 10:42 Dose: 40 mg Tramadol HCl (Ultram) 25 mg PO TID PRN PRN Reason: Pain, severe (8-10) Last Admin: 07/27/18 17:28 Dose: 25 mg Zolpidem Tartrate (Ambien) 5 mg PO HS PRN PRN Reason: Insomnia Last Admin: 08/05/18 00:54 Dose: 5 mg - Labs Labs: 08/04/18 16:27 08/04/18 16:27 PT 12.6 SECONDS (9.7-12.2) H 07/27/18 07:05 INR 1.2 07/27/18 07:05 APTT 30 SECONDS (21-34) 07/27/18 07:05 Attending/Attestation - Attestation I have personally seen and examined this patient.: Yes I have fully participated in the care of the patient.: Yes I have reviewed all pertinent clinical information, including history, physical exam and plan: Yes Notes (Text): 08/05/18 14:40 Medical attending: Patient was seen and examined by me. Agree with the above note by the resident The patient was not in any acute distress when I came and saw the patient The patient's breathing situation is not changed - he is still on the bipap/ NRBM mask. He still has a lot of weakness when trying to walk. David Wellington
[2018-08-05] MEDS: (Novolin R) Insulin Human Regular 100 units/ml vial SC SCH ×4 (08:54→21:41)
[2018-08-05] MEDS: Pantoprazole 40 mg EC Tab PO SCH (10:42)
[2018-08-05] MEDS: Multiple Vitamins Tab PO SCH (10:42)
[2018-08-05] MEDS: Acetaminophen-Codeine 300/30 mg Tab PO SCH (21:13)
[2018-08-05] MEDS: (Lantus) Insulin Glargine, Recombinant SC SCH (21:41)
[2018-08-06] MEDS: Albuterol-Ipratrop 3 mg / 0.5 (3 ml) UD INH SCH ×6 (00:10→20:19)
[2018-08-06] MEDS: Meropenem 1 GM in Sodium Chloride 0.9% 100 ML IVPB SCH ×3 (04:20→20:34)
[2018-08-06] MEDS: Acyclovir 500 MG in Sodium Chloride 0.9% 100 ML IV SCH ×3 (05:40→21:47)
[2018-08-06] MEDS: (Novolin R) Insulin Human Regular 100 units/ml vial SC SCH ×3 (07:58→17:30)
[2018-08-06] MEDS: Pantoprazole 40 mg EC Tab PO SCH (09:58)
[2018-08-06] MEDS: Multiple Vitamins Tab PO SCH (10:00)
--- NOTE | 2018-08-06 11:50 | CP.PCM.PN ---
Subjective - Date & Time of Evaluation Date of Evaluation: 08/06/18 Time of Evaluation: 07:30 - Subjective Subjective: PGY-[address] Wellington Patient is seen and examined at bedside. Patient says he feels the same, having on and off shortness of breath. Patient is currently using nonrebreather mask and states he uses bipap but ask for it to be removed after a while due to it having too much pressure. Patient denies other complaints. Patient reports s leeping well and not having a cough. Patient is eating well, goes to the bathroom regularly, urinates with no problems. Patient denies fever, chills, chest pain, shortness of breath, abdominal pain, diarrhea, constipation, nausea, vomiting, cough, leg pain or swelling, or any other urinary problems. Objective - Vital Signs/Intake and Output Vital Signs (last 24 hours): Temp Pulse Resp BP Pulse Ox 98.3 F 100 H 22 135/73 98 08/06/18 08:00 08/06/18 08:00 08/06/18 08:00 08/06/18 08:00 08/06/18 08:00 Intake and Output: 08/06/18 08/06/18 06:59 18:59 Intake Total 1130 Output Total 1500 Balance -370 - Medications Medications: Current Medications Acetaminophen (Tylenol 325mg Tab) 650 mg PO Q6 PRN PRN Reason: Pain, Mild (1-3) Last Admin: 08/01/18 08:07 Dose: 650 mg Acetaminophen/Codeine Phosphate (Tylenol/Codeine 300 Mg/30 Mg) 1 ea PO HS [facility] Last Admin: 08/05/18 21:13 Dose: 1 ea Albuterol/Ipratropium (Duoneb 3 Mg/0.5 Mg (3 Ml) Ud) 3 ml INH RQ4 [facility] Last Admin: 08/06/18 11:12 Dose: 3 ml Dextrose (Dextrose 50% Inj) 0 ml IV STAT PRN; Protocol PRN Reason: Hypoglycemia Protocol Dextrose (Glutose 15) 0 gm PO ONCE PRN; Protocol PRN Reason: Hypoglycemia Protocol Glucagon (Glucagen Diagnostic Kit) 0 mg IM STAT PRN; Protocol PRN Reason: Hypoglycemia Protocol Guaifenesin/Dextromethorphan (Robitussin Dm) 5 ml PO Q4H PRN PRN Reason: Cough Last Admin: 07/31/18 21:39 Dose: 5 ml Heparin Sodium (Porcine) (Heparin) 5,000 units SC Q12 [facility] Last Admin: 08/04/18 09:03 Dose: 5,000 units Meropenem 1 gm/ Sodium (Chloride) 100 mls @ 100 mls/hr IVPB Q8H [facility]; Protocol Last Admin: 08/06/18 04:20 Dose: 100 mls/hr Acyclovir 500 mg/ Sodium (Chloride) 100 mls @ 100 mls/hr IV Q8H [facility]; Protocol Last Admin: 08/06/18 05:40 Dose: 100 mls/hr Ibuprofen (Motrin Tab) 600 mg PO TID PRN PRN Reason: Pain, moderate (4-7) Last Admin: 07/12/18 17:15 Dose: 600 mg Insulin Glargine (Lantus) 25 unit SC HS [facility] Last Admin: 08/05/18 21:41 Dose: 25 unit Insulin Human Regular (Novolin R) 0 unit SC ACHS [facility]; Protocol Last Admin: 08/06/18 07:58 Dose: 8 units Methylprednisolone (Solu-Medrol) 60 mg IV Q6 [facility] Last Admin: 08/06/18 05:45 Dose: 60 mg Multivitamins (Hexavitamin) 1 tab PO DAILY [facility] Last Admin: 08/06/18 10:00 Dose: 1 tab Mycophenolate Mofetil (Cellcept) 500 mg PO BID [facility] Last Admin: 08/06/18 09:57 Dose: 500 mg Pantoprazole Sodium (Protonix Ec Tab) 40 mg PO DAILY [facility] Last Admin: 08/06/18 09:58 Dose: 40 mg Tramadol HCl (Ultram) 25 mg PO TID PRN PRN Reason: Pain, severe (8-10) Last Admin: 07/27/18 17:28 Dose: 25 mg Zolpidem Tartrate (Ambien) 5 mg PO HS PRN PRN Reason: Insomnia Last Admin: 08/05/18 21:42 Dose: 5 mg - Labs Labs: 08/04/18 16:27 08/04/18 16:27 PT 12.6 SECONDS (9.7-12.2) H 07/27/18 07:05 INR 1.2 07/27/18 07:05 APTT 30 SECONDS (21-34) 07/27/18 07:05 - Constitutional Appears: Non-toxic, No Acute Distress, Cachectic, Chronically Ill - Head Exam Head Exam: ATRAUMATIC, NORMAL INSPECTION, NORMOCEPHALIC - Eye Exam Eye Exam: EOMI, Normal appearance, PERRL Pupil Exam: NORMAL ACCOMODATION - ENT Exam ENT Exam: Mucous Membranes Moist - Neck Exam Neck Exam: Full ROM, Normal Inspection - Respiratory Exam Respiratory Exam: Decreased Breath Sounds. absent: Accessory Muscle Use Additional comments: bilateral crackles on both right and left lower lobes - Cardiovascular Exam Cardiovascular Exam: Tachycardia, +S1, +S2 - GI/Abdominal Exam GI & Abdominal Exam: Soft, Normal Bowel Sounds. absent: Distended, Guarding, Tenderness - Extremities Exam Extremities Exam: Full ROM, Normal Inspection. absent: Calf Tenderness, Te nderness - Back Exam Back Exam: Full ROM, NORMAL INSPECTION - Neurological Exam Neurological Exam: Alert, Awake, Oriented x3 - Psychiatric Exam Psychiatric exam: Normal Affect, Normal Mood - Skin Skin Exam: Dry, Intact, Normal Color, Warm Assessment and Plan - Assessment and Plan (Free Text) Assessment: 63 year old [place] male admitted for dyspnea 2/2 to ILD Plan: Interstitial pulmonary fibrosis -patient has history of tobacco use and environmental exposure from work -patient is from [place], homeless, no BC vaccine -continues to be afebrile and mild leukocytosis 2/2 steroids -BiPAP as needed, nonrebreather mask at 15% -AFB sputum culture x 3 negative -HIV negative -Rapid flu negative -Mycoplasma negative -PAULO negative -SRP Ab negative -Blood Cx no growth -Sputum Cx: yeast species -Bronchial Cx: Ramonita albicans -Bronchoscopy Biopsy: fibrosis, acute inflammation, emphysematous changes -Bronchoscopy washings: no malignant cells Pathology report done at [facility] from right lower lobe, bronchoscopic biopsy - Acute and organizing diffuse alveolar damage with minimal patchy scarring in no particular pattern - interstitial fibrosis, emphysematous change and acute inflammation - radiological correlation and wedge biopsy may be helpful in classification. -CXR: peripheral interstitial and to lesser extent confluent changes bilaterally likely chronic in nature -Repeat CXR (07/26): no significant interval changes -CT chest: Findings consistent with diffuse significant interstitial fibrosis with what probably represents paraseptal emphysematous changes and bronchiectasis. There are scattered areas of confluent and ground-glass opacities. Calcified granuloma right lung base. There are mildly enlarged paratracheal and subcarinal lymph nodes -Echo: EF 70%, no diastolic dysfunction, mild-mod TR, mild-mod pulm HTN (44 mmHg), no pericardial effusion - Duoneb Q4H [facility] - Solumedrol 60 mg IVP Q6H - Robitussin DM 5 mL PO Q4H PRN - Meropenem 1 g Q8H - acyclovir IV Q8HR - Mycophenolate mofetil 500mg PO BID - Tylenol 650 mg PO Q6H PRN - Ibuprofen 600 mg PO TID PRN - Tramadol 25 mg PO TID PRN - Pulmonology recs (Dr. Vera) - continue to follow recs - f/u further ID recs (Dr. Ritter) - will continue to monitor patient's vital signs and symptoms. Acute sick euthyroid syndrome - TSH low (0.05, 0.17)- suppression exacerbated by IV steroids - Free T4 wnl/low (1.37, 0.76), tot T4 low (3.24, 3.22), T3 wnl (2.89) - Thyroid Abs negative - Endocrinology recs (Dr Ang) appreciated -serial labs Pancreatic abnormality -patient with estimated 10 kg unintentional weight loss in last two years - CEA elevated (6.3), CA 19-9 elevated (215), CA 125 elevated (46.8) - AFP wnl (1.4) - CT abdomen/pelvis: Question enlargement of the pancreatic head/uncinate process. It is unclear if this finding is the results of edematous pancreas/mass or collapsed adjacent duodenum which is difficult to distinguish. Recommend follow-up pancreatic CT for further assessment. - Pancreatic CT: Prominence of pancreatic head without discrete mass, likely reflects normal tissue. Recommend f/u in 3-6 months. -GI recs appreciated (Dr. Clifford) -no acute intervention -repeat imaging as outpatient Pre-diabetes mellitus, chronic - A1c 5.5 - glucose levels 200-300s on accuchecks - 2/2 to steroid use - ISS changed from medium to high dose protocol - Lantus increased from 25 U to 35U at bedtime - continue accuchecks ACHS - hypoglycemic protocol Insomnia - Tylenol/Codeine 300/30 1 tablet QHS - Ambien 5mg PO HS PRN for insomnia PPx, Diet, Disposition -DVT ppx: heparin 5000 units [id number] due to thrombocytopenia - will follow up labs -GI ppx: protonix 40 mg PO daily - pain control with tylenol (mild pain), ibuprofen (moderate pain), Ultram (severe pain) - Diet: dietary supplements: Ensure Enlive TID, MV daily, HHD -palliative care consult - Continue O2 supply and Neb Tx Assist with ADLs Use O2 while ambulates SS to assist with information about long-term placement and Jacquelin care DNR/DNI - Physical therapy consult - f/u recs - OT therapy - eval ability for patient to perform ADLs. - labs q3d Plan discussed with Dr. Eliz Tarango
[2018-08-06] MEDS ORDERED: (Novolin R) Insulin Human Regular 100 units/ml vial SC SCH (17:38)
[2018-08-06] MEDS: Acetaminophen-Codeine 300/30 mg Tab PO SCH (21:40)
[2018-08-06] MEDS: (Lantus) Insulin Glargine, Recombinant SC SCH (21:46)
[2018-08-07] MEDS: Albuterol-Ipratrop 3 mg / 0.5 (3 ml) UD INH SCH ×6 (00:54→20:07)
[2018-08-07] MEDS ORDERED: (Novolin R) Insulin Human Regular 100 units/ml vial SC ONE ×2 (02:35→03:00)
[2018-08-07] MEDS: (Novolin R) Insulin Human Regular 100 units/ml vial SC SCH ×5 (03:20→21:31)
[2018-08-07] MEDS: Meropenem 1 GM in Sodium Chloride 0.9% 100 ML IVPB SCH ×3 (04:25→20:30)
[2018-08-07] MEDS: Acyclovir 500 MG in Sodium Chloride 0.9% 100 ML IV SCH ×3 (05:30→21:39)
[2018-08-07 07:18] LABS: BASO % 0.1 % (0.0-2.0); HEMOGLOBIN 13.9 g/dL (12.0-18.0); LYMPH # 0.4 K/uL (1.0-4.3); LYMPH % 4.6 % (20.0-40.0); MEAN CELL VOLUME 97.4 fL (80.0-94.0); MEAN CORPUSCULAR HGB CONC 32.8 g/dL (33.0-37.0); MEAN PLATELET VOLUME 9.1 fL (7.2-11.7); MONO # 0.2 K/uL (0.0-0.8); MONO % 2.8 % (0.0-10.0); NEUT # 8.3 K/uL (1.8-7.0); NEUT % 92.5 % (50.0-75.0); PLATELET COUNT 136 K/uL (130-400); RBC 4.35 Mil/uL (4.40-5.90); RED CELL DISTRIBUTION WIDTH 16.3 % (11.5-14.5)
[2018-08-07 08:31] LABS: ALB/GLOB RATIO 1.1 (1.0-2.1); ALBUMIN 3.1 g/dL (3.5-5.0); ALT/SGPT 47 U/L (21-72); AST/SGOT 28 U/L (17-59); BLOOD UREA NITROGEN 26 mg/dL (9-20); CALCIUM 8.1 mg/dl (8.6-10.4); GFR NON-AFRICAN AMERICAN > 60
[2018-08-07 08:48] LABS: BANDS 2 % (0-2); LYMPHOCYTE 3 % (20-40); MONOCYTE 4 % (0-10); NEUTROPHIL 91 % (50-75); TOTAL CELLS COUNTED 100
[2018-08-07 08:49] LABS: ANISOCYTOSIS SLIGHT; PLATELET ESTIMATE NORMAL (NORMAL); STOMATOCYTES SLIGHT
[2018-08-07] MEDS: Pantoprazole 40 mg EC Tab PO SCH (09:17)
[2018-08-07] MEDS: Multiple Vitamins Tab PO SCH (09:17)
--- NOTE | 2018-08-07 11:10 | CP.PCM.PN ---
<Clement Alejandro - Last Filed: 08/07/18 15:57> Subjective - Date & Time of Evaluation Date of Evaluation: 08/07/18 Time of Evaluation: 11:11 - Subjective Subjective: PGY-[address] Wellington Patient seen and examined at bedside. No acute events overnight. Patient sleeping well and tolerating solid foods. He is having bowel movements and urinating. Patient does have shortness of breath when he gets up to go to the b athroom but denies shortness of breath at rest. Patient has no other complaints at this time, denies chest pain, palpitations, headache, nausea, vomiting. Objective - Vital Signs/Intake and Output Vital Signs (last 24 hours): Temp Pulse Resp BP Pulse Ox 98.1 F 105 H 20 134/93 H 98 08/07/18 07:00 08/07/18 10:00 08/07/18 07:00 08/07/18 07:00 08/07/18 07:00 Intake and Output: 08/07/18 08/07/18 06:59 18:59 Intake Total 1230 Output Total 1700 Balance -470 - Medications Medications: Current Medications Acetaminophen (Tylenol 325mg Tab) 650 mg PO Q6 PRN PRN Reason: Pain, Mild (1-3) Last Admin: 08/01/18 08:07 Dose: 650 mg Acetaminophen/Codeine Phosphate (Tylenol/Codeine 300 Mg/30 Mg) 1 ea PO HS [facility] Last Admin: 08/06/18 21:40 Dose: 1 ea Albuterol/Ipratropium (Duoneb 3 Mg/0.5 Mg (3 Ml) Ud) 3 ml INH RQ4 [facility] Last Admin: 08/07/18 08:10 Dose: 3 ml Dextrose (Dextrose 50% Inj) 0 ml IV STAT PRN; Protocol PRN Reason: Hypoglycemia Protocol Dextrose (Glutose 15) 0 gm PO ONCE PRN; Protocol PRN Reason: Hypoglycemia Protocol Glucagon (Glucagen Diagnostic Kit) 0 mg IM STAT PRN; Protocol PRN Reason: Hypoglycemia Protocol Guaifenesin/Dextromethorphan (Robitussin Dm) 5 ml PO Q4H PRN PRN Reason: Cough Last Admin: 07/31/18 21:39 Dose: 5 ml Heparin Sodium (Porcine) (Heparin) 5,000 units SC Q12 [facility] Last Admin: 08/04/18 09:03 Dose: 5,000 units Meropenem 1 gm/ Sodium (Chloride) 100 mls @ 100 mls/hr IVPB Q8H [facility]; Protocol Last Admin: 08/07/18 04:25 Dose: 100 mls/hr Acyclovir 500 mg/ Sodium (Chloride) 100 mls @ 100 mls/hr IV Q8H [facility]; Protocol Last Admin: 08/07/18 05:30 Dose: 100 mls/hr Ibuprofen (Motrin Tab) 600 mg PO TID PRN PRN Reason: Pain, moderate (4-7) Last Admin: 07/12/18 17:15 Dose: 600 mg Insulin Glargine (Lantus) 35 unit SC HS [facility] Last Admin: 08/06/18 21:46 Dose: 35 units Insulin Human Regular (Novolin R) 0 unit SC ACHS [facility]; Protocol Last Admin: 08/07/18 08:28 Dose: 6 units Methylprednisolone (Solu-Medrol) 60 mg IV Q6 [facility] Last Admin: 08/07/18 05:30 Dose: 60 mg Multivitamins (Hexavitamin) 1 tab PO DAILY [facility] Last Admin: 08/07/18 09:17 Dose: 1 tab Mycophenolate Mofetil (Cellcept) 500 mg PO BID [facility] Last Admin: 08/07/18 09:17 Dose: 500 mg Pantoprazole Sodium (Protonix Ec Tab) 40 mg PO DAILY [facility] Last Admin: 08/07/18 09:17 Dose: 40 mg Tramadol HCl (Ultram) 25 mg PO TID PRN PRN Reason: Pain, severe (8-10) Last Admin: 07/27/18 17:28 Dose: 25 mg Zolpidem Tartrate (Ambien) 5 mg PO HS PRN PRN Reason: Insomnia Last Admin: 08/06/18 21:47 Dose: 5 mg - Labs Labs: 08/07/18 07:10 08/07/18 07:10 PT 12.6 SECONDS (9.7-12.2) H 07/27/18 07:05 INR 1.2 07/27/18 07:05 APTT 30 SECONDS (21-34) 07/27/18 07:05 - Constitutional Appears: Non-toxic, No Acute Distress - Head Exam Head Exam: ATRAUMATIC, NORMOCEPHALIC - Eye Exam Eye Exam: EOMI, Normal appearance - ENT Exam ENT Exam: Mucous Membranes Moist - Respiratory Exam Respiratory Exam: absent: Wheezes Additional comments: Bilateral crackles. On NRB. - Cardiovascular Exam Cardiovascular Exam: REGULAR RHYTHM, +S1, +S2 - GI/Abdominal Exam GI & Abdominal Exam: Soft, Normal Bowel Sounds. absent: Tenderness - Neurological Exam Neurological Exam: Alert, Awake, Oriented x3 - Psychiatric Exam Psychiatric exam: Normal Affect, Normal Mood - Skin Skin Exam: Dry, Intact Assessment and Plan - Assessment and Plan (Free Text) Assessment: 63 year old Malaysian male admitted for dyspnea 2/2 to ILD Plan: Interstitial pulmonary fibrosis -patient has history of tobacco use and environmental exposure from work -patient is from [place], homeless, no BC vaccine -continues to be afebrile and mild leukocytosis 2/2 steroids -BiPAP as needed, nonrebreather mask at 15% -AFB sputum culture x 3 negative -HIV negative -Rapid flu negative -Mycoplasma negative -PAULO negative -SRP Ab negative -Blood Cx no growth -Sputum Cx: yeast species -Bronchial Cx: Ramonita albicans -Bronchoscopy Biopsy: fibrosis, acute inflammation, emphysematous changes -Bronchoscopy washings: no malignant cells Pathology report done at [facility] from right lower lobe, bron choscopic biopsy - Acute and organizing diffuse alveolar damage with minimal patchy scarring in no particular pattern - interstitial fibrosis, emphysematous change and acute inflammation - radiologi servando correlation and wedge biopsy may be helpful in classification. -CXR: peripheral interstitial and to lesser extent confluent changes bilaterally likely chronic in nature -Repeat CXR (07/26): no significant interval changes -CT chest: Findings consistent with diffuse significant interstitial fibrosis with what probably represents paraseptal emphysematous changes and bronchiectasis. There are scattered areas of confluent and ground-glass opacities. Calcified granuloma right lung base. There are mildly enlarged paratracheal and subcarinal lymph nodes -Echo: EF 70%, no diastolic dysfunction, mild-mod TR, mild-mod pulm HTN (44 mmHg), no pericardial effusion - Duoneb Q4H [facility] - Solumedrol 60 mg IVP Q6H - Robitussin DM 5 mL PO Q4H PRN - Meropenem 1 g Q8H - acyclovir IV Q8HR - Mycophenolate mofetil 500mg PO BID - Tylenol 650 mg PO Q6H PRN - Ibuprofen 600 mg PO TID PRN - Tramadol 25 mg PO TID PRN - Pulmonology recs (Dr. Vera) - continue to follow recs - f/u further ID recs (Dr. Ritter) - will continue to monitor patient's vital signs and symptoms. Acute sick euthyroid syndrome - TSH low (0.05, 0.17)- suppression exacerbated by IV steroids - Free T4 wnl/low (1.37, 0.76), tot T4 low (3.24, 3.22), T3 wnl (2.89) - Thyroid Abs negative - Endocrinology recs (Dr Ang) appreciated -serial labs Pancreatic abnormality -patient with estimated 10 kg unintentional weight loss in last two years - CEA elevated (6.3), CA 19-9 elevated (215), CA 125 elevated (46.8) - AFP wnl (1.4) - CT abdomen/pelvis: Question enlargement of the pancreatic head/uncinate process. It is unclear if this finding is the results of edematous pancreas/mass or collapsed adjacent duodenum which is difficult to distinguish. Recommend follow-up pancreatic CT for further assessment. - Pancreatic CT: Prominence of pancreatic head without discrete mass, likely reflects normal tissue. Recommend f/u in 3-6 months. -GI recs appreciated (Dr. Clifford) -no acute intervention -repeat imaging as outpatient Pre-diabetes mellitus, chronic - A1c 5.5 - glucose levels 200-300s on accuchecks - 2/2 to steroid use - ISS changed from medium to high dose protocol - Lantus increased from 25 U to 35U at bedtime - continue accuchecks ACHS - hypoglycemic protocol Insomnia - Tylenol/Codeine 300/30 1 tablet QHS - Ambien 5mg PO HS PRN for insomnia PPx, Diet, Disposition -DVT ppx: heparin 5000 units [id number] due to thrombocytopenia - will follow up labs -GI ppx: protonix 40 mg PO daily - pain control with tylenol (mild pain), ibuprofen (moderate pain), Ultram (severe pain) - Diet: dietary supplements: Ensure Enlive TID, MV daily, HHD -palliative care consult - Continue O2 supply and Neb Tx Assist with ADLs Use O2 while ambulates SS to assist with information about fci placement and Jacquelin care DNR/DNI - Physical therapy consult - f/u recs - OT therapy - eval ability for patient to perform ADLs. - labs q3d Plan discussed with Dr. Eliz Alejandro, PGY-1 <David Wellington H - Last Filed: 08/07/18 16:09> Objective - Vital Signs/Intake and Output Vital Signs (last 24 hours): Temp Pulse Resp BP Pulse Ox 98.1 F 105 H 20 134/93 H 98 08/07/18 07:00 08/07/18 10:00 08/07/18 07:00 08/07/18 07:00 08/07/18 07:00 Intake and Output: 08/07/18 08/07/18 06:59 18:59 Intake Total 1230 680 Output Total 1700 Balance -470 680 - Medications Medications: Current Medications Acetaminophen (Tylenol 325mg Tab) 650 mg PO Q6 PRN PRN Reason: Pain, Mild (1-3) Last Admin: 08/01/18 08:07 Dose: 650 mg Acetaminophen/Codeine Phosphate (Tylenol/Codeine 300 Mg/30 Mg) 1 ea PO HS [facility] Last Admin: 08/06/18 21:40 Dose: 1 ea Albuterol/Ipratropium (Duoneb 3 Mg/0.5 Mg (3 Ml) Ud) 3 ml INH RQ4 [facility] Last Admin: 08/07/18 11:30 Dose: 3 ml Dextrose (Dextrose 50% Inj) 0 ml IV STAT PRN; Protocol PRN Reason: Hypoglycemia Protocol Dextrose (Glutose 15) 0 gm PO ONCE PRN; Protocol PRN Reason: Hypoglycemia Protocol Glucagon (Glucagen Diagnostic Kit) 0 mg IM STAT PRN; Protocol PRN Reason: Hypoglycemia Protocol Guaifenesin/Dextromethorphan (Robitussin Dm) 5 ml PO Q4H PRN PRN Reason: Cough Last Admin: 07/31/18 21:39 Dose: 5 ml Heparin Sodium (Porcine) (Heparin) 5,000 units SC Q12 [facility] Last Admin: 08/04/18 09:03 Dose: 5,000 units Meropenem 1 gm/ Sodium (Chloride) 100 mls @ 100 mls/hr IVPB Q8H [facility]; Protocol Last Admin: 08/07/18 13:03 Dose: 100 mls/hr Acyclovir 500 mg/ Sodium (Chloride) 100 mls @ 100 mls/hr IV Q8H [facility]; Protocol Last Admin: 08/07/18 14:17 Dose: 100 mls/hr Ibuprofen (Motrin Tab) 600 mg PO TID PRN PRN Reason: Pain, moderate (4-7) Last Admin: 07/12/18 17:15 Dose: 600 mg Insulin Glargine (Lantus) 35 unit SC HS [facility] Last Admin: 08/06/18 21:46 Dose: 35 units Insulin Human Regular (Novolin R) 0 unit SC ACHS [facility]; Protocol Last Admin: 08/07/18 12:16 Dose: 10 units Methylprednisolone (Solu-Medrol) 60 mg IV Q6 [facility] Last Admin: 08/07/18 12:16 Dose: 60 mg Multivitamins (Hexavitamin) 1 tab PO DAILY [facility] Last Admin: 08/07/18 09:17 Dose: 1 tab Mycophenolate Mofetil (Cellcept) 500 mg PO BID [facility] Last Admin: 08/07/18 09:17 Dose: 500 mg Pantoprazole Sodium (Protonix Ec Tab) 40 mg PO DAILY [facility] Last Admin: 08/07/18 09:17 Dose: 40 mg Tramadol HCl (Ultram) 25 mg PO TID PRN PRN Reason: Pain, severe (8-10) Last Admin: 07/27/18 17:28 Dose: 25 mg Zolpidem Tartrate (Ambien) 5 mg PO HS PRN PRN Reason: Insomnia Last Admin: 08/06/18 21:47 Dose: 5 mg - Labs Labs: 08/07/18 07:10 08/07/18 07:10 PT 12.6 SECONDS (9.7-12.2) H 07/27/18 07:05 INR 1.2 07/27/18 07:05 APTT 30 SECONDS (21-34) 07/27/18 07:05 Attending/Attestation - Attestation I have personally seen and examined this patient.: Yes I have fully participated in the care of the patient.: Yes I have reviewed all pertinent clinical information, including history, physical exam and plan: Yes Notes (Text): 08/07/18 16:09 Medical attending: Patient was seen and examined by me. Situation continues to slowly decline. Patient is still optomistic. David Wellington
--- NOTE | 2018-08-07 18:24 | PCM.FALL ---
Post Fall Progress Note - Post Fall Fall Date: 08/07/18 Fall Time: 18:05 - Post Fall Exam Vital Sign: Temp Pulse Resp BP Pulse Ox 97.6 F 110 H 20 126/84 98 08/07/18 16:00 08/07/18 16:00 08/07/18 16:00 08/07/18 16:00 08/07/18 16:00 Skull Exam: Negative for: Scalp wound, Scalp hematoma, Scalp depression, Ridge in skull Eye Exam: Positive for: Pupils equal, Pupils reactive Ear Exam: Negative for: Discharge, Bleeding Nose Exam: Negative for: Discharge, Bleeding Skin Exam: Negative for: Lacerations, Bruising Mouth Exam: Negative for: Tongue bitten, Teeth dislodge Neck Exam: Negative for: Tenderness, Tingling, Weakness Spinal Exam: Negative for: Tenderness, Tingling, Weakness Chest Exam: Negative for: Tenderness in collar bones, Tenderness in ribs Abdomen Exam: Negative for: Tenderness Pelvic Exam: Negative for: Hematuria Arm Exam: Negative for: Deformity, Alteration in range of movement Leg Exam: Negative for: Deformity, Alteration in range of movement Impression/Plan: House Doctor Note Code Start called for patient fall at 6:05 PM. Patient was on commode by bedside, attempted to get up and go back to bed without nurse supervision. Patient was unable to stand on his own and fell back onto seat. He denies falling forward or back, landing directly back onto the seat on his buttocks. No head trauma or loss of consciousness. Denies any headaches, blurry vision, visual changes, bleeding, dizziness, numbness/tingling. No facial droop noted, no focal neuro deficits, no tongue biting. Initial VS: HR 123 BP 147/93 O2 97% NRB Repeat VS: HR 121 BP 137/89 O2 sat 98% NRB
[2018-08-07] MEDS: Acetaminophen-Codeine 300/30 mg Tab PO SCH (21:28)
[2018-08-07] MEDS: (Lantus) Insulin Glargine, Recombinant SC SCH (21:30)
[2018-08-08] MEDS: Albuterol-Ipratrop 3 mg / 0.5 (3 ml) UD INH SCH ×6 (00:40→20:34)
[2018-08-08] MEDS: Meropenem 1 GM in Sodium Chloride 0.9% 100 ML IVPB SCH ×3 (04:30→21:12)
[2018-08-08] MEDS: Acyclovir 500 MG in Sodium Chloride 0.9% 100 ML IV SCH ×3 (05:40→22:32)
--- NOTE | 2018-08-08 08:30 | CP.PCM.PN ---
<Adrian Tarango - Last Filed: 08/08/18 19:17> Subjective - Date & Time of Evaluation Date of Evaluation: 08/08/18 Time of Evaluation: 09:00 - Subjective Subjective: PGY-[address] Wellington Patient is seen and examined at bedside. Patient had a code start yesterday, patient states he did not fall, he felt weak after getting up from commode and he sat in the floor, but did not hurt any part of his body or head. Patient states feeling well. He is currently on mask nonrebreather, patient states bipap causes him chest pressure due to flow of oxygen. Patient admits to chronic weakness in his legs. Patient denies cough, headaches, dizziness, fever, chills, chest pain, n/v/d/c, or urinary complains. Objective - Vital Signs/Intake and Output Vital Signs (last 24 hours): Temp Pulse Resp BP Pulse Ox 97.4 F L 110 H 20 136/80 96 08/08/18 07:25 08/08/18 07:25 08/08/18 07:25 08/08/18 07:25 08/08/18 07:25 Intake and Output: 08/08/18 08/08/18 06:59 18:59 Intake Total 630 Balance 630 - Medications Medications: Current Medications Acetaminophen (Tylenol 325mg Tab) 650 mg PO Q6 PRN PRN Reason: Pain, Mild (1-3) Last Admin: 08/01/18 08:07 Dose: 650 mg Acetaminophen/Codeine Phosphate (Tylenol/Codeine 300 Mg/30 Mg) 1 ea PO HS [facility] Last Admin: 08/07/18 21:28 Dose: 1 ea Albuterol/Ipratropium (Duoneb 3 Mg/0.5 Mg (3 Ml) Ud) 3 ml INH RQ4 [facility] Last Admin: 08/08/18 03:55 Dose: 3 ml Dextrose (Dextrose 50% Inj) 0 ml IV STAT PRN; Protocol PRN Reason: Hypoglycemia Protocol Dextrose (Glutose 15) 0 gm PO ONCE PRN; Protocol PRN Reason: Hypoglycemia Protocol Glucagon (Glucagen Diagnostic Kit) 0 mg IM STAT PRN; Protocol PRN Reason: Hypoglycemia Protocol Guaifenesin/Dextromethorphan (Robitussin Dm) 5 ml PO Q4H PRN PRN Reason: Cough Last Admin: 07/31/18 21:39 Dose: 5 ml Heparin Sodium (Porcine) (Heparin) 5,000 units SC Q12 [facility] Last Admin: 08/04/18 09:03 Dose: 5,000 units Meropenem 1 gm/ Sodium (Chloride) 100 mls @ 100 mls/hr IVPB Q8H [facility]; Protocol Last Admin: 08/08/18 04:30 Dose: 100 mls/hr Acyclovir 500 mg/ Sodium (Chloride) 100 mls @ 100 mls/hr IV Q8H [facility]; Protocol Last Admin: 08/08/18 05:40 Dose: 100 mls/hr Ibuprofen (Motrin Tab) 600 mg PO TID PRN PRN Reason: Pain, moderate (4-7) Last Admin: 07/12/18 17:15 Dose: 600 mg Insulin Glargine (Lantus) 35 unit SC HS [facility] Last Admin: 08/07/18 21:30 Dose: 35 units Insulin Human Regular (Novolin R) 0 unit SC ACHS [facility]; Protocol Last Admin: 08/07/18 21:31 Dose: 4 units Methylprednisolone (Solu-Medrol) 60 mg IV Q6 [facility] Last Admin: 08/08/18 05:40 Dose: 60 mg Multivitamins (Hexavitamin) 1 tab PO DAILY [facility] Last Admin: 08/07/18 09:17 Dose: 1 tab Mycophenolate Mofetil (Cellcept) 500 mg PO BID [facility] Last Admin: 08/07/18 17:33 Dose: 500 mg Pantoprazole Sodium (Protonix Ec Tab) 40 mg PO DAILY [facility] Last Admin: 08/07/18 09:17 Dose: 40 mg Tramadol HCl (Ultram) 25 mg PO TID PRN PRN Reason: Pain, severe (8-10) Last Admin: 07/27/18 17:28 Dose: 25 mg Zolpidem Tartrate (Ambien) 5 mg PO HS PRN PRN Reason: Insomnia Last Admin: 08/06/18 21:47 Dose: 5 mg - Labs Labs: 08/07/18 07:10 08/07/18 07:10 PT 12.6 SECONDS (9.7-12.2) H 07/27/18 07:05 INR 1.2 07/27/18 07:05 APTT 30 SECONDS (21-34) 07/27/18 07:05 - Constitutional Appears: Non-toxic, No Acute Distress, Cachectic, Chronically Ill - Head Exam Head Exam: ATRAUMATIC, NORMAL INSPECTION, NORMOCEPHALIC - Eye Exam Eye Exam: EOMI, Normal appearance, PERRL - Neck Exam Neck Exam: Full ROM - Respiratory Exam Respiratory Exam: Rales. absent: Rhonchi, Wheezes Additional comments: unchanged crackles on right and left bilateral lung bases - Cardiovascular Exam Cardiovascular Exam: Tachycardia, REGULAR RHYTHM, +S1, +S2 - GI/Abdominal Exam GI & Abdominal Exam: Soft, Normal Bowel Sounds. absent: Distended, Tenderness - Extremities Exam Extremities Exam: Full ROM Additional comments: muscle wasting calf muscles - Back Exam Back Exam: NORMAL INSPECTION - Neurological Exam Neurological Exam: Alert, Awake, Oriented x3 - Psychiatric Exam Psychiatric exam: Normal Affect, Normal Mood - Skin Skin Exam: Dry, Intact, Normal Color, Warm Assessment and Plan - Assessment and Plan (Free Text) Plan: Interstitial pulmonary fibrosis -patient has history of tobacco use and environmental exposure from work -patient is from [place], homeless, no BC vaccine -continues to be afebrile and mild leukocytosis 2/2 steroids -BiPAP as needed, nonrebreather mask -AFB sputum culture x 3 negative -HIV negative -Rapid flu negative -Mycoplasma negative -PAULO negative -SRP Ab negative -Blood Cx no growth -Sputum Cx: yeast species -Bronchial Cx: Ramonita albicans -Bronchoscopy Biopsy: fibrosis, acute inflammation, emphysematous changes -Bronchoscopy washings: no malignant cells Pathology report done at [facility] from right lower lobe, bronchoscopic biopsy - Acute and organizing diffuse alveolar damage with minimal patchy scarring in no particular pattern - interstitial fibrosis, emphysematous change and acute inflammation - radiological correlation and wedge biopsy may be helpful in classification. -CXR: peripheral interstitial and to lesser extent confluent changes bilaterally likely chronic in nature -Repeat CXR (07/26): no significant interval changes -CT chest: Findings consistent with diffuse significant interstitial fibrosis with what probably represents paraseptal emphysematous changes and bronchiectasis. There are scattered areas of confluent and ground-glass opacities. Calcified granuloma right lung base. There are mildly enlarged parat caroline and subcarinal lymph nodes -Echo: EF 70%, no diastolic dysfunction, mild-mod TR, mild-mod pulm HTN (44 mmHg), no pericardial effusion - Duoneb Q4H [facility] - Solumedrol 60 mg IVP Q6H - Robitussin DM 5 mL PO Q4H PRN - Meropenem 1 g Q8H - acyclovir IV Q8HR - Mycophenolate mofetil 500mg PO BID - Tylenol 650 mg PO Q6H PRN - Ibuprofen 600 mg PO TID PRN - Tramadol 25 mg PO TID PRN - Pulmonology recs (Dr. Vera) - continue to follow recs - f/u further ID recs (Dr. Ritter) - will continue to monitor patient's vital signs and symptoms. Acute sick euthyroid syndrome - TSH low (0.05, 0.17)- suppression exacerbated by IV steroids - Free T4 wnl/low (1.37, 0.76), tot T4 low (3.24, 3.22), T3 wnl (2.89) - Thyroid Abs negative - Endocrinology recs (Dr Ang) appreciated -serial labs Pancreatic abnormality -patient with estimated 10 kg unintentional weight loss in last two years - CEA elevated (6.3), CA 19-9 elevated (215), CA 125 elevated (46.8) - AFP wnl (1.4) - CT abdomen/pelvis: Question enlargement of the pancreatic head/uncinate pro cess. It is unclear if this finding is the results of edematous pancreas/mass or collapsed adjacent duodenum which is difficult to distinguish. Recommend follow- up pancreatic CT for further assessment. - Pancreatic CT: Prominence of pancreatic head without discrete mass, likely reflects normal tissue. Recommend f/u in 3-6 months. -GI recs appreciated (Dr. Clifford) -no acute intervention -repeat imaging as outpatient Pre-diabetes mellitus, chronic - A1c 5.5 - glucose levels >500 on accuchecks previous day, today 300 - 2/2 to steroid use - ISS high dose protocol - Lantus 35U at bedtime - start Insulin Aspart 7 Unit SC TID - continue accuchecks ACHS - hypoglycemic protocol Insomnia - Tylenol/Codeine 300/30 1 tablet QHS - Ambien 5mg PO HS PRN for insomnia PPx, Diet, Disposition -DVT ppx: heparin 5000 units [id number] due to thrombocytopenia - will follow up labs -GI ppx: protonix 40 mg PO daily - pain control with tylenol (mild pain), ibuprofen (moderate pain), Ultram (severe pain) - Diet: dietary supplements: Ensure Enlive TID, MV daily, HHD -palliative care consult - Continue O2 supply and Neb Tx Assist with ADLs Use O2 while ambulates SS to assist with information about alf placement and Jacquelin care DNR/DNI - Physical therapy consult - f/u recs - OT therapy - eval ability for patient to perform ADLs. - labs q3d Plan discussed with Dr. Eliz Tarango, PGY-1 <David Wellington H - Last Filed: 08/09/18 07:56> Objective - Vital Signs/Intake and Output Vital Signs (last 24 hours): Temp Pulse Resp BP Pulse Ox 98.1 F 79 16 131/70 99 08/09/18 00:00 08/09/18 00:00 08/09/18 00:00 08/09/18 00:00 08/09/18 00:00 Intake and Output: 08/09/18 08/09/18 06:59 18:59 Intake Total 920 Output Total 600 Balance 320 - Medications Medications: Current Medications Acetaminophen (Tylenol 325mg Tab) 650 mg PO Q6 PRN PRN Reason: Pain, Mild (1-3) Last Admin: 08/01/18 08:07 Dose: 650 mg Acetaminophen/Codeine Phosphate (Tylenol/Codeine 300 Mg/30 Mg) 1 ea PO HS [facility] Last Admin: 08/08/18 21:11 Dose: 1 ea Albuterol/Ipratropium (Duoneb 3 Mg/0.5 Mg (3 Ml) Ud) 3 ml INH RQ4 [facility] Last Admin: 08/09/18 07:24 Dose: 3 ml Dextrose (Dextrose 50% Inj) 0 ml IV STAT PRN; Protocol PRN Reason: Hypoglycemia Protocol Dextrose (Glutose 15) 0 gm PO ONCE PRN; Protocol PRN Reason: Hypoglycemia Protocol Glucagon (Glucagen Diagnostic Kit) 0 mg IM STAT PRN; Protocol PRN Reason: Hypoglycemia Protocol Guaifenesin/Dextromethorphan (Robitussin Dm) 5 ml PO Q4H PRN PRN Reason: Cough Last Admin: 07/31/18 21:39 Dose: 5 ml Heparin Sodium (Porcine) (Heparin) 5,000 units SC Q12 [facility] Last Admin: 08/04/18 09:03 Dose: 5,000 units Meropenem 1 gm/ Sodium (Chloride) 100 mls @ 100 mls/hr IVPB Q8H [facility]; Protocol Last Admin: 08/09/18 04:13 Dose: 100 mls/hr Acyclovir 500 mg/ Sodium (Chloride) 100 mls @ 100 mls/hr IV Q8H [facility]; Protocol Last Admin: 08/09/18 06:08 Dose: 100 mls/hr Ibuprofen (Motrin Tab) 600 mg PO TID PRN PRN Reason: Pain, moderate (4-7) Last Admin: 07/12/18 17:15 Dose: 600 mg Insulin Aspart (Novolog) 7 unit SC TID [facility] Last Admin: 08/08/18 17:05 Dose: Not Given Insulin Glargine (Lantus) 35 unit SC HS [facility] Last Admin: 08/08/18 21:11 Dose: 35 units Insulin Human Regular (Novolin R) 0 unit SC ACHS [facility]; Protocol Last Admin: 08/08/18 21:18 Dose: 2 units Methylprednisolone (Solu-Medrol) 60 mg IV Q6 [facility] Last Admin: 08/09/18 06:09 Dose: 60 mg Multivitamins (Hexavitamin) 1 tab PO DAILY [facility] Last Admin: 08/08/18 09:30 Dose: 1 tab Mycophenolate Mofetil (Cellcept) 500 mg PO BID [facility] Last Admin: 08/08/18 17:25 Dose: 500 mg Pantoprazole Sodium (Protonix Ec Tab) 40 mg PO DAILY [facility] Last Admin: 08/08/18 09:30 Dose: 40 mg Tramadol HCl (Ultram) 25 mg PO TID PRN PRN Reason: Pain, severe (8-10) Last Admin: 07/27/18 17:28 Dose: 25 mg Zolpidem Tartrate (Ambien) 5 mg PO HS PRN PRN Reason: Insomnia Last Admin: 08/06/18 21:47 Dose: 5 mg - Labs Labs: 08/07/18 07:10 08/07/18 07:10 PT 12.6 SECONDS (9.7-12.2) H 07/27/18 07:05 INR 1.2 07/27/18 07:05 APTT 30 SECONDS (21-34) 07/27/18 07:05 Attending/Attestation - Attestation I have personally seen and examined this patient.: Yes I have fully participated in the care of the patient.: Yes I have reviewed all pertinent clinical information, including history, physical exam and plan: Yes Notes (Text): 08/09/18 07:53 Medical attending: Patient was seen and examined by me. Agree with the above note by the resident The patient was not in any acute distress when I came a saw him. There was some concern for oral thursh however when I looked today it was fine Previous night he fell, I asked if he hit his head or hurthimself he said no. His breathing situation is as before David Wellington
[2018-08-08] MEDS: (Novolin R) Insulin Human Regular 100 units/ml vial SC SCH ×4 (08:32→21:18)
[2018-08-08] MEDS: Multiple Vitamins Tab PO SCH (09:30)
[2018-08-08] MEDS: Pantoprazole 40 mg EC Tab PO SCH (09:30)
[2018-08-08] MEDS: (Novolog) Insulin Aspart, Recombinant 100 u/ml 10 ml vial SC SCH ×3 (09:30→17:05)
[2018-08-08] MEDS: (Lantus) Insulin Glargine, Recombinant SC SCH (21:11)
[2018-08-08] MEDS: Acetaminophen-Codeine 300/30 mg Tab PO SCH (21:11)
[2018-08-09] MEDS: Albuterol-Ipratrop 3 mg / 0.5 (3 ml) UD INH SCH ×6 (00:15→20:42)
[2018-08-09] MEDS: Meropenem 1 GM in Sodium Chloride 0.9% 100 ML IVPB SCH ×3 (04:13→21:15)
[2018-08-09] MEDS: Acyclovir 500 MG in Sodium Chloride 0.9% 100 ML IV SCH ×3 (06:08→22:09)
[2018-08-09] MEDS: (Novolin R) Insulin Human Regular 100 units/ml vial SC SCH ×4 (08:06→21:30)
[2018-08-09] MEDS: (Novolog) Insulin Aspart, Recombinant 100 u/ml 10 ml vial SC SCH ×4 (09:35→18:00)
[2018-08-09] MEDS: Multiple Vitamins Tab PO SCH (09:36)
[2018-08-09] MEDS: Pantoprazole 40 mg EC Tab PO SCH (09:36)
--- NOTE | 2018-08-09 10:17 | CP.PCM.PN ---
<Cornelio Hinson - Last Filed: 08/09/18 10:00> Subjective - Date & Time of Evaluation Date of Evaluation: 08/09/18 Time of Evaluation: 10:00 - Subjective Subjective: PGY2 Medicine Note for Dr. Wellington Patient seen and examined this morning at bedside. No acute events overnight. Patient reports that he is feeling well today but still feels weak in his lower extremities. His appetite is improving and he is now constantly hungry. He is not getting up out of bed on his own as per recommendations from physical therapy. He was informed that he should have assistance anytime he gets out of bed. He is down to using BiPAP once a night for about 2-3 hours and only when he feels tightness in his chest. He is without oxygen most of the day but has it at his bedside. Objective - Vital Signs/Intake and Output Vital Signs (last 24 hours): Temp Pulse Resp BP Pulse Ox 98.1 F 79 16 131/70 99 08/09/18 00:00 08/09/18 00:00 08/09/18 00:00 08/09/18 00:00 08/09/18 00:00 Intake and Output: 08/09/18 08/09/18 06:59 18:59 Intake Total 920 Output Total 600 Balance 320 - Medications Medications: Current Medications Acetaminophen (Tylenol 325mg Tab) 650 mg PO Q6 PRN PRN Reason: Pain, Mild (1-3) Last Admin: 08/01/18 08:07 Dose: 650 mg Acetaminophen/Codeine Phosphate (Tylenol/Codeine 300 Mg/30 Mg) 1 ea PO HS [facility] Last Admin: 08/08/18 21:11 Dose: 1 ea Albuterol/Ipratropium (Duoneb 3 Mg/0.5 Mg (3 Ml) Ud) 3 ml INH RQ4 [facility] Last Admin: 08/09/18 07:24 Dose: 3 ml Dextrose (Dextrose 50% Inj) 0 ml IV STAT PRN; Protocol PRN Reason: Hypoglycemia Protocol Dextrose (Glutose 15) 0 gm PO ONCE PRN; Protocol PRN Reason: Hypoglycemia Protocol Glucagon (Glucagen Diagnostic Kit) 0 mg IM STAT PRN; Protocol PRN Reason: Hypoglycemia Protocol Guaifenesin/Dextromethorphan (Robitussin Dm) 5 ml PO Q4H PRN PRN Reason: Cough Last Admin: 07/31/18 21:39 Dose: 5 ml Heparin Sodium (Porcine) (Heparin) 5,000 units SC Q12 [facility] Last Admin: 08/04/18 09:03 Dose: 5,000 units Meropenem 1 gm/ Sodium (Chloride) 100 mls @ 100 mls/hr IVPB Q8H [facility]; Protocol Last Admin: 08/09/18 04:13 Dose: 100 mls/hr Acyclovir 500 mg/ Sodium (Chloride) 100 mls @ 100 mls/hr IV Q8H [facility]; Protocol Last Admin: 08/09/18 06:08 Dose: 100 mls/hr Ibuprofen (Motrin Tab) 600 mg PO TID PRN PRN Reason: Pain, moderate (4-7) Last Admin: 07/12/18 17:15 Dose: 600 mg Insulin Aspart (Novolog) 7 unit SC TID [facility] Last Admin: 08/09/18 09:35 Dose: 7 units Insulin Glargine (Lantus) 35 unit SC HS [facility] Last Admin: 08/08/18 21:11 Dose: 35 units Insulin Human Regular (Novolin R) 0 unit SC ACHS [facility]; Protocol Last Admin: 08/09/18 08:06 Dose: 6 units Methylprednisolone (Solu-Medrol) 60 mg IV Q6 [facility] Last Admin: 08/09/18 06:09 Dose: 60 mg Multivitamins (Hexavitamin) 1 tab PO DAILY [facility] Last Admin: 08/09/18 09:36 Dose: 1 tab Mycophenolate Mofetil (Cellcept) 500 mg PO BID [facility] Last Admin: 08/09/18 09:36 Dose: 500 mg Pantoprazole Sodium (Protonix Ec Tab) 40 mg PO DAILY [facility] Last Admin: 08/09/18 09:36 Dose: 40 mg Tramadol HCl (Ultram) 25 mg PO TID PRN PRN Reason: Pain, severe (8-10) Last Admin: 07/27/18 17:28 Dose: 25 mg Zolpidem Tartrate (Ambien) 5 mg PO HS PRN PRN Reason: Insomnia Last Admin: 08/06/18 21:47 Dose: 5 mg - Labs Labs: 08/07/18 07:10 08/07/18 07:10 PT 12.6 SECONDS (9.7-12.2) H 07/27/18 07:05 INR 1.2 12/17/18 07:05 APTT 30 SECONDS (21-34) 07/27/18 07:05 <David Wellington H - Last Filed: 08/09/18 11:06> Objective - Vital Signs/Intake and Output Vital Signs (last 24 hours): Temp Pulse Resp BP Pulse Ox 97.8 F 123 H 20 120/84 96 08/09/18 08:00 08/09/18 08:00 08/09/18 08:00 08/09/18 08:00 08/09/18 08:00 Intake and Output: 08/09/18 08/09/18 06:59 18:59 Intake Total 920 Output Total 600 Balance 320 - Medications Medications: Current Medications Acetaminophen (Tylenol 325mg Tab) 650 mg PO Q6 PRN PRN Reason: Pain, Mild (1-3) Last Admin: 08/01/18 08:07 Dose: 650 mg Acetaminophen/Codeine Phosphate (Tylenol/Codeine 300 Mg/30 Mg) 1 ea PO HS [facility] Last Admin: 08/08/18 21:11 Dose: 1 ea Albuterol/Ipratropium (Duoneb 3 Mg/0.5 Mg (3 Ml) Ud) 3 ml INH RQ4 [facility] Last Admin: 08/09/18 07:24 Dose: 3 ml Dextrose (Dextrose 50% Inj) 0 ml IV STAT PRN; Protocol PRN Reason: Hypoglycemia Protocol Dextrose (Glutose 15) 0 gm PO ONCE PRN; Protocol PRN Reason: Hypoglycemia Protocol Glucagon (Glucagen Diagnostic Kit) 0 mg IM STAT PRN; Protocol PRN Reason: Hypoglycemia Protocol Guaifenesin/Dextromethorphan (Robitussin Dm) 5 ml PO Q4H PRN PRN Reason: Cough Last Admin: 07/31/18 21:39 Dose: 5 ml Heparin Sodium (Porcine) (Heparin) 5,000 units SC Q12 [facility] Last Admin: 08/04/18 09:03 Dose: 5,000 units Meropenem 1 gm/ Sodium (Chloride) 100 mls @ 100 mls/hr IVPB Q8H [facility]; Protocol Last Admin: 08/09/18 04:13 Dose: 100 mls/hr Acyclovir 500 mg/ Sodium (Chloride) 100 mls @ 100 mls/hr IV Q8H [facility]; Protocol Last Admin: 08/09/18 06:08 Dose: 100 mls/hr Ibuprofen (Motrin Tab) 600 mg PO TID PRN PRN Reason: Pain, moderate (4-7) Last Admin: 07/12/18 17:15 Dose: 600 mg Insulin Aspart (Novolog) 7 unit SC TID [facility] Last Admin: 08/09/18 09:35 Dose: 7 units Insulin Glargine (Lantus) 35 unit SC HS [facility] Last Admin: 08/08/18 21:11 Dose: 35 units Insulin Human Regular (Novolin R) 0 unit SC ACHS [facility]; Protocol Last Admin: 08/09/18 08:06 Dose: 6 units Methylprednisolone (Solu-Medrol) 60 mg IV Q6 [facility] Last Admin: 08/09/18 06:09 Dose: 60 mg Multivitamins (Hexavitamin) 1 tab PO DAILY [facility] Last Admin: 08/09/18 09:36 Dose: 1 tab Mycophenolate Mofetil (Cellcept) 500 mg PO BID [facility] Last Admin: 08/09/18 09:36 Dose: 500 mg Nystatin (Nystatin Oral Susp) 5 ml PO QID [facility] Pantoprazole Sodium (Protonix Ec Tab) 40 mg PO DAILY [facility] Last Admin: 08/09/18 09:36 Dose: 40 mg Tramadol HCl (Ultram) 25 mg PO TID PRN PRN Reason: Pain, severe (8-10) Last Admin: 07/27/18 17:28 Dose: 25 mg Zolpidem Tartrate (Ambien) 5 mg PO HS PRN PRN Reason: Insomnia Last Admin: 08/06/18 21:47 Dose: 5 mg - Labs Labs: 08/07/18 07:10 08/07/18 07:10 PT 12.6 SECONDS (9.7-12.2) H 07/27/18 07:05 INR 1.2 07/27/18 07:05 APTT 30 SECONDS (21-34) 07/27/18 07:05 Attending/Attestation - Attestation I have personally seen and examined this patient.: Yes I have fully participated in the care of the patient.: Yes I have reviewed all pertinent clinical information, including history, physical exam and plan: Yes
[2018-08-09] MEDS: Nystatin 100,000 Units/ml Oral Susp 5 ml UD PO SCH ×3 (15:15→21:15)
[2018-08-09] MEDS: Acetaminophen-Codeine 300/30 mg Tab PO SCH (22:09)
[2018-08-09] MEDS: (Lantus) Insulin Glargine, Recombinant SC SCH ×2 (22:10→22:54)
[2018-08-10] MEDS: Meropenem 1 GM in Sodium Chloride 0.9% 100 ML IVPB SCH ×3 (04:12→21:47)
[2018-08-10] MEDS: Acyclovir 500 MG in Sodium Chloride 0.9% 100 ML IV SCH (05:30)
--- NOTE | 2018-08-10 07:08 | CP.PCM.PN ---
<Adrian Tarango - Last Filed: 08/10/18 17:13> Subjective - Date & Time of Evaluation Date of Evaluation: 08/10/18 Time of Evaluation: 08:00 - Subjective Subjective: PGY-[address] Ragsdale Patient is seen and examined at bedside. Patient states feeling well. No acute events overnight. Patient continues to use nonrebreather mask on and off every 10-15 minutes. Patient denies any fever, chills, chest pain, sob, nausea, vomiting, diarrhea, constipation, headaches, leg swelling/pain or urinary complaints. Objective - Vital Signs/Intake and Output Vital Signs (last 24 hours): Temp Pulse Resp BP Pulse Ox 97.7 F 81 20 132/71 98 08/10/18 00:00 08/10/18 00:00 08/10/18 00:00 08/10/18 00:00 08/10/18 00:00 Intake and Output: 08/10/18 08/10/18 06:59 18:59 Intake Total 400 Output Total 650 Balance -250 - Medications Medications: Current Medications Acetaminophen (Tylenol 325mg Tab) 650 mg PO Q6 PRN PRN Reason: Pain, Mild (1-3) Last Admin: 08/01/18 08:07 Dose: 650 mg Acetaminophen/Codeine Phosphate (Tylenol/Codeine 300 Mg/30 Mg) 1 ea PO HS [facility] Last Admin: 08/09/18 22:09 Dose: 1 ea Albuterol/Ipratropium (Duoneb 3 Mg/0.5 Mg (3 Ml) Ud) 3 ml INH RQ4 [facility] Last Admin: 08/09/18 20:42 Dose: 3 ml Dextrose (Dextrose 50% Inj) 0 ml IV STAT PRN; Protocol PRN Reason: Hypoglycemia Protocol Dextrose (Glutose 15) 0 gm PO ONCE PRN; Protocol PRN Reason: Hypoglycemia Protocol Glucagon (Glucagen Diagnostic Kit) 0 mg IM STAT PRN; Protocol PRN Reason: Hypoglycemia Protocol Guaifenesin/Dextromethorphan (Robitussin Dm) 5 ml PO Q4H PRN PRN Reason: Cough Last Admin: 07/31/18 21:39 Dose: 5 ml Heparin Sodium (Porcine) (Heparin) 5,000 units SC Q12 [facility] Last Admin: 08/04/18 09:03 Dose: 5,000 units Meropenem 1 gm/ Sodium (Chloride) 100 mls @ 100 mls/hr IVPB Q8H [facility]; Protocol Last Admin: 08/10/18 04:12 Dose: 100 mls/hr Acyclovir 500 mg/ Sodium (Chloride) 100 mls @ 100 mls/hr IV Q8H [facility]; Protocol Last Admin: 08/10/18 05:30 Dose: 100 mls/hr Ibuprofen (Motrin Tab) 600 mg PO TID PRN PRN Reason: Pain, moderate (4-7) Last Admin: 07/12/18 17:15 Dose: 600 mg Insulin Aspart (Novolog) 12 unit SC TID [facility] Last Admin: 08/09/18 18:00 Dose: 12 units Insulin Glargine (Lantus) 45 unit SC HS [facility] Last Admin: 08/09/18 22:54 Dose: Not Given Insulin Human Regular (Novolin R) 0 unit SC ACHS [facility]; Protocol Last Admin: 08/09/18 21:30 Dose: Not Given Methylprednisolone (Solu-Medrol) 60 mg IV Q6 [facility] Last Admin: 08/10/18 05:29 Dose: 60 mg Multivitamins (Hexavitamin) 1 tab PO DAILY [facility] Last Admin: 08/09/18 09:36 Dose: 1 tab Mycophenolate Mofetil (Cellcept) 500 mg PO BID [facility] Last Admin: 08/09/18 17:48 Dose: 500 mg Nystatin (Nystatin Oral Susp) 5 ml PO QID [facility] Last Admin: 08/09/18 21:15 Dose: 5 ml Pantoprazole Sodium (Protonix Ec Tab) 40 mg PO DAILY [facility] Last Admin: 08/09/18 09:36 Dose: 40 mg Tramadol HCl (Ultram) 25 mg PO TID PRN PRN Reason: Pain, severe (8-10) Last Admin: 07/27/18 17:28 Dose: 25 mg Zolpidem Tartrate (Ambien) 5 mg PO HS PRN PRN Reason: Insomnia Last Admin: 08/06/18 21:47 Dose: 5 mg - Labs Labs: 08/07/18 07:10 08/07/18 07:10 PT 12.6 SECONDS (9.7-12.2) H 07/27/18 07:05 INR 1.2 07/27/18 07:05 APTT 30 SECONDS (21-34) 07/27/18 07:05 - Constitutional Appears: No Acute Distress, Unkempt, Chronically Ill - Head Exam Head Exam: ATRAUMATIC, NORMAL INSPECTION, NORMOCEPHALIC - Eye Exam Eye Exam: EOMI, Normal appearance - ENT Exam ENT Exam: Mucous Membranes Moist, Normal Exam Additional comments: white cottage cheese clusters on lateral oropharynx region bilaterally - Neck Exam Neck Exam: Full ROM - Respiratory Exam Respiratory Exam: Clear to Ausculation Bilateral, NORMAL BREATHING PATTERN. absent: Rales, Rhonchi, Wheezes - Cardiovascular Exam Cardiovascular Exam: Tachycardia, REGULAR RHYTHM, +S1, +S2 - GI/Abdominal Exam GI & Abdominal Exam: Soft, Normal Bowel Sounds. absent: Distended, Guarding, Tenderness - Extremities Exam Extremities Exam: Full ROM, Normal Inspection. absent: Pedal Edema, Tenderness Additional comments: muscle wasting on calves b/l - Back Exam Back Exam: NORMAL INSPECTION. absent: rash noted - Neurological Exam Neurological Exam: Alert, Awake, Oriented x3 - Psychiatric Exam Psychiatric exam: Normal Affect, Normal Mood - Skin Skin Exam: Dry, Warm Assessment and Plan - Assessment and Plan (Free Text) Plan: Interstitial pulmonary fibrosis -patient has history of tobacco use and environmental exposure from work -patient is from [place], homeless, no BC vaccine -continues to be afebrile and mild leukocytosis 2/2 steroids -BiPAP as needed, nonrebreather mask -AFB sputum culture x 3 negative -HIV negative -Rapid flu negative -Mycoplasma negative -PAULO negative -SRP Ab negative -Blood Cx no growth -Sputum Cx: yeast species -Bronchial Cx: Ramonita albicans -Bronchoscopy Biopsy: fibrosis, acute inflammation, emphysematous changes -Bronchoscopy washings: no malignant cells Pathology report done at [facility] from right lower lobe, bronch oscopic biopsy - Acute and organizing diffuse alveolar damage with minimal patchy scarring in no particular pattern - interstitial fibrosis, emphysematous change and acute inflammation - radiological correlation and wedge biopsy may be helpful in classification. -CXR: peripheral interstitial and to lesser extent confluent changes bilaterally likely chronic in nature -Repeat CXR (07/26): no significant interval changes -CT chest: Findings consistent with diffuse significant interstitial fibrosis with what probably represents paraseptal emphysematous changes and bronchiectasis. There are scattered areas of confluent and ground-glass opacities. Calcified granuloma right lung base. There are mildly enlarged paratracheal and subcarinal lymph nodes -Echo: EF 70%, no diastolic dysfunction, mild-mod TR, mild-mod pulm HTN (44 mmHg), no pericardial effusion - Duoneb Q4H [facility] - Solumedrol 60 mg IVP Q6H - Robitussin DM 5 mL PO Q4H PRN - Meropenem 1 g Q8H - Mycophenolate mofetil 500mg PO BID - Tylenol 650 mg PO Q6H PRN - Ibuprofen 600 mg PO TID PRN - Tramadol 25 mg PO TID PRN - Pulmonology recs (Dr. Vera) - continue to follow recs - f/u further ID recs (Dr. Ritter) - will continue to monitor patient's vital signs and symptoms. Acute sick euthyroid syndrome - TSH low (0.05, 0.17)- suppression exacerbated by IV steroids - Free T4 wnl/low (1.37, 0.76), tot T4 low (3.24, 3.22), T3 wnl (2.89) - Thyroid Abs negative - Endocrinology recs (Dr Ang) appreciated -serial labs Pancreatic abnormality -patient with estimated 10 kg unintentional weight loss in last two years - CEA elevated (6.3), CA 19-9 elevated (215), CA 125 elevated (46.8) - AFP wnl (1.4) - CT abdomen/pelvis: Question enlargement of the pancreatic head/uncinate process. It is unclear if this finding is the results of edematous pancreas/mass or collapsed adjacent duodenum which is difficult to distinguish. Recommend follow-up pancreatic CT for further assessment. - Pancreatic CT: Prominence of pancreatic head without discrete mass, likely reflects normal tissue. Recommend f/u in 3-6 months. -GI recs appreciated (Dr. Clifford) -no acute intervention -repeat imaging as outpatient Pre-diabetes mellitus, chronic - A1c 5.5 - today 200-300s - 2/2 to steroid use - ISS high dose protocol - Lantus 45U at bedtime - start Insulin Aspart 12 Unit SC ACTID - continue accuchecks ACHS - hypoglycemic protocol Insomnia, resolved - Ambien 5mg PO HS PRN for insomnia Oral trush - nystatin 5ml PO QID - on PE, clusters improving, will keep monitoring it PPx, Diet, Disposition -DVT ppx: heparin 5000 units [id number] - will continue to follow up labs -GI ppx: protonix 40 mg PO daily - pain control with tylenol (mild pain), ibuprofen (moderate pain), Ultram (severe pain) - Diet: dietary supplements: Ensure Enlive TID, MV daily, HHD -palliative care consult - Continue O2 supply and Neb Tx Assist with ADLs Use O2 while ambulates SS to assist with information about half-way placement and Jacqu[place] care DNR/DNI - Physical therapy consult - continue therapy - f/u recs - OT therapy - eval ability for patient to perform ADLs. - labs q3d Plan discussed with Dr Jn Tarango, PGY-1 <Aj Ragsdale - Last Filed: 08/15/18 21:03> Objective - Vital Signs/Intake and Output Vital Signs (last 24 hours): Temp Pulse Resp BP Pulse Ox 97.9 F 110 H 20 137/89 100 08/15/18 16:40 08/15/18 16:40 08/15/18 16:40 08/15/18 16:40 08/15/18 16:40 Intake and Output: 08/15/18 08/16/18 18:59 06:59 Intake Total 710 Output Total 1350 Balance -640 - Medications Medications: Current Medications Acetaminophen (Tylenol 325mg Tab) 650 mg PO Q6 PRN PRN Reason: Pain, Mild (1-3) Last Admin: 08/01/18 08:07 Dose: 650 mg Albuterol Sulfate (Albuterol 0.083% Inhal Stephany (2.5 Mg/3 Ml) Ud) 2.5 mg INH RQ6 PRN PRN Reason: Shortness of Breath Albuterol/Ipratropium (Duoneb 3 Mg/0.5 Mg (3 Ml) Ud) 3 ml INH RQ4 [facility] Last Admin: 08/15/18 19:34 Dose: 3 ml Dextrose (Dextrose 50% Inj) 0 ml IV STAT PRN; Protocol PRN Reason: Hypoglycemia Protocol Dextrose (Glutose 15) 0 gm PO ONCE PRN; Protocol PRN Reason: Hypoglycemia Protocol Glucagon (Glucagen Diagnostic Kit) 0 mg IM STAT PRN; Protocol PRN Reason: Hypoglycemia Protocol Guaifenesin/Dextromethorphan (Robitussin Dm) 5 ml PO Q4H PRN PRN Reason: Cough Last Admin: 08/15/18 09:53 Dose: 5 ml Heparin Sodium (Porcine) (Heparin) 5,000 units SC Q12 [facility] Last Admin: 08/15/18 09:53 Dose: 5,000 units Ibuprofen (Motrin Tab) 600 mg PO TID PRN PRN Reason: Pain, moderate (4-7) Last Admin: 08/14/18 21:36 Dose: 600 mg Insulin Aspart (Novolog) 12 unit SC ACTID [facility] Last Admin: 08/15/18 16:38 Dose: Not Given Insulin Glargine (Lantus) 30 unit SC Q12 [facility] Last Admin: 08/15/18 09:53 Dose: 30 units Insulin Human Regular (Novolin R) 0 unit SC ACHS [facility]; Protocol Last Admin: 08/15/18 16:38 Dose: Not Given Methylprednisolone (Solu-Medrol) 40 mg IV Q6H [facility] Last Admin: 08/15/18 16:38 Dose: 40 mg Multivitamins (Hexavitamin) 1 tab PO DAILY [facility] Last Admin: 08/15/18 09:53 Dose: 1 tab Mycophenolate Mofetil (Cellcept) 500 mg PO BID [facility] Last Admin: 08/15/18 17:43 Dose: 500 mg Pantoprazole Sodium (Protonix Ec Tab) 40 mg PO DAILY [facility] Last Admin: 08/15/18 09:53 Dose: 40 mg Tramadol HCl (Ultram) 25 mg PO TID PRN PRN Reason: Pain, severe (8-10) Last Admin: 08/10/18 21:57 Dose: 25 mg Zolpidem Tartrate (Ambien) 5 mg PO HS PRN PRN Reason: Insomnia Last Admin: 08/14/18 21:37 Dose: 5 mg - Labs Labs: 08/13/18 06:53 08/13/18 06:53 PT 12.6 SECONDS (9.7-12.2) H 07/27/18 07:05 INR 1.2 07/27/18 07:05 APTT 30 SECONDS (21-34) 07/27/18 07:05 Attending/Attestation - Attestation I have personally seen and examined this patient.: Yes I have fully participated in the care of the patient.: Yes I have reviewed all pertinent clinical information, including history, physical exam and plan: Yes Notes (Text): seen and examined and I agree with the resident's documentation
[2018-08-10 07:24] LABS: BASO % 0.2 % (0.0-2.0); LYMPH # 0.4 K/uL (1.0-4.3); LYMPH % 4.9 % (20.0-40.0); MEAN CELL VOLUME 95.7 fL (80.0-94.0); MEAN CORPUSCULAR HGB CONC 33.4 g/dL (33.0-37.0); MEAN PLATELET VOLUME 8.4 fL (7.2-11.7); MONO # 0.2 K/uL (0.0-0.8); MONO % 2.4 % (0.0-10.0); NEUT # 7.7 K/uL (1.8-7.0); NEUT % 92.5 % (50.0-75.0); NRBC % 0.1 % (0.0-2.0); PLATELET COUNT 130 K/uL (130-400); RBC 4.07 Mil/uL (4.40-5.90); RED CELL DISTRIBUTION WIDTH 15.9 % (11.5-14.5); WHITE BLOOD COUNT 8.3 K/uL (4.8-10.8)
[2018-08-10] MEDS: Albuterol-Ipratrop 3 mg / 0.5 (3 ml) UD INH SCH (08:00)
[2018-08-10] MEDS: (Novolin R) Insulin Human Regular 100 units/ml vial SC SCH ×4 (08:19→21:56)
[2018-08-10 08:21] LABS: ALBUMIN 2.7 g/dL (3.5-5.0); ALT/SGPT 43 U/L (21-72); AST/SGOT 44 U/L (17-59); BLOOD UREA NITROGEN 24 mg/dL (9-20); CALCIUM 7.5 mg/dl (8.6-10.4); GFR NON-AFRICAN AMERICAN > 60
[2018-08-10 09:24] LABS: LYMPHOCYTE 4 % (20-40); MONOCYTE 3 % (0-10); NEUTROPHIL 93 % (50-75); NUCLEATED RED BLOOD CELL 1 % (0-0); PLATELET ESTIMATE NORMAL (NORMAL); TOTAL CELLS COUNTED 100
[2018-08-10] MEDS: Pantoprazole 40 mg EC Tab PO SCH (10:56)
[2018-08-10] MEDS: Multiple Vitamins Tab PO SCH (10:56)
[2018-08-10] MEDS: Nystatin 100,000 Units/ml Oral Susp 5 ml UD PO SCH ×3 (11:17→21:56)
[2018-08-10] MEDS: (Novolog) Insulin Aspart, Recombinant 100 u/ml 10 ml vial SC SCH ×3 (11:19→16:30)
--- NOTE | 2018-08-10 14:53 | CP.PCM.PN ---
<Cornelio Hinson - Last Filed: 08/10/18 14:50> Subjective - Date & Time of Evaluation Date of Evaluation: 08/10/18 Time of Evaluation: 12:50 - Subjective Subjective: PGY2 Pulmonology note for Dr. Vera Patient seen and examined this morning at bedside. Patient is complaining of lower extremity weakness. His appetite is strong and he is eating all of his meals in their entirety. He is able to move his lower extremities without any problems, but just feels weak in general. He is still on/off bipap throughout the day. Patient has no new complaints at this time. Objective - Vital Signs/Intake and Output Vital Signs (last 24 hours): Temp Pulse Resp BP Pulse Ox 98.5 F 118 H 18 126/87 95 08/10/18 08:02 08/10/18 08:02 08/10/18 08:02 08/10/18 08:02 08/10/18 08:02 Intake and Output: 08/10/18 08/10/18 06:59 18:59 Intake Total 400 Output Total 650 Balance -250 - Medications Medications: Current Medications Acetaminophen (Tylenol 325mg Tab) 650 mg PO Q6 PRN PRN Reason: Pain, Mild (1-3) Last Admin: 08/01/18 08:07 Dose: 650 mg Acetaminophen/Codeine Phosphate (Tylenol/Codeine 300 Mg/30 Mg) 1 ea PO HS [facility] Last Admin: 08/09/18 22:09 Dose: 1 ea Dextrose (Dextrose 50% Inj) 0 ml IV STAT PRN; Protocol PRN Reason: Hypoglycemia Protocol Dextrose (Glutose 15) 0 gm PO ONCE PRN; Protocol PRN Reason: Hypoglycemia Protocol Glucagon (Glucagen Diagnostic Kit) 0 mg IM STAT PRN; Protocol PRN Reason: Hypoglycemia Protocol Guaifenesin/Dextromethorphan (Robitussin Dm) 5 ml PO Q4H PRN PRN Reason: Cough Last Admin: 07/31/18 21:39 Dose: 5 ml Heparin Sodium (Porcine) (Heparin) 5,000 units SC Q12 [facility] Last Admin: 08/04/18 09:03 Dose: 5,000 units Meropenem 1 gm/ Sodium (Chloride) 100 mls @ 100 mls/hr IVPB Q8H [facility]; Protocol Last Admin: 08/10/18 13:32 Dose: 100 mls/hr Ibuprofen (Motrin Tab) 600 mg PO TID PRN PRN Reason: Pain, moderate (4-7) Last Admin: 07/12/18 17:15 Dose: 600 mg Insulin Aspart (Novolog) 12 unit SC TID [facility] Last Admin: 08/10/18 13:36 Dose: 12 units Insulin Glargine (Lantus) 45 unit SC [facility] Last Admin: 08/09/18 22:54 Dose: Not Given Insulin Human Regular (Novolin R) 0 unit SC [facility]; Protocol Last Admin: 08/10/18 12:04 Dose: 8 units Methylprednisolone (Solu-Medrol) 60 mg IV Q6 [facility] Last Admin: 08/10/18 12:07 Dose: 60 mg Multivitamins (Hexavitamin) 1 tab PO DAILY [facility] Last Admin: 08/10/18 10:56 Dose: 1 tab Mycophenolate Mofetil (Cellcept) 500 mg PO BID [facility] Last Admin: 08/10/18 10:52 Dose: 500 mg Nystatin (Nystatin Oral Susp) 5 ml PO QID [facility] Last Admin: 08/10/18 11:17 Dose: 5 ml Pantoprazole Sodium (Protonix Ec Tab) 40 mg PO DAILY [facility] Last Admin: 08/10/18 10:56 Dose: 40 mg Tramadol HCl (Ultram) 25 mg PO TID PRN PRN Reason: Pain, severe (8-10) Last Admin: 07/27/18 17:28 Dose: 25 mg Zolpidem Tartrate (Ambien) 5 mg PO HS PRN PRN Reason: Insomnia Last Admin: 08/06/18 21:47 Dose: 5 mg - Labs Labs: 08/10/18 07:14 08/10/18 07:14 PT 12.6 SECONDS (9.7-12.2) H 07/27/18 07:05 INR 1.2 07/27/18 07:05 APTT 30 SECONDS (21-34) 07/27/18 07:05 - Constitutional Appears: Non-toxic, No Acute Distress - Head Exam Head Exam: ATRAUMATIC, NORMOCEPHALIC - Eye Exam Eye Exam: Normal appearance - ENT Exam ENT Exam: Mucous Membranes Moist - Neck Exam Neck Exam: absent: Lymphadenopathy, Tenderness - Respiratory Exam Respiratory Exam: Rales (b/l bases). absent: Accessory Muscle Use, Respiratory Distress - Cardiovascular Exam Cardiovascular Exam: REGULAR RHYTHM, +S1, +S2 - GI/Abdominal Exam GI & Abdominal Exam: Soft. absent: Distended, Firm, Guarding, Rigid, Tenderness - Extremities Exam Extremities Exam: absent: Calf Tenderness, Pedal Edema - Neurological Exam Neurological Exam: Alert, Awake, Oriented x3 Neuro motor strength exam: Left Upper Extremity: 5, Right Upper Extremity: 5, Left Lower Extremity: 5, Right Lower Extremity: 5 - Psychiatric Exam Psychiatric exam: Normal Affect, Normal Mood - Skin Skin Exam: Dry, Warm Assessment and Plan (1) Pulmonary fibrosis Status: Acute (2) Chronic respiratory failure with hypoxia Status: Acute <Nahun Vera S - Last Filed: 08/10/18 15:45> Objective - Vital Signs/Intake and Output Vital Signs (last 24 hours): Temp Pulse Resp BP Pulse Ox 98.5 F 118 H 18 126/87 95 08/10/18 08:02 08/10/18 08:02 08/10/18 08:02 08/10/18 08:02 08/10/18 08:02 Intake and Output: 08/10/18 08/10/18 06:59 18:59 Intake Total 400 450 Output Total 650 Balance -250 450 - Medications Medications: Current Medications Acetaminophen (Tylenol 325mg Tab) 650 mg PO Q6 PRN PRN Reason: Pain, Mild (1-3) Last Admin: 08/01/18 08:07 Dose: 650 mg Acetaminophen/Codeine Phosphate (Tylenol/Codeine 300 Mg/30 Mg) 1 ea PO HS [facility] Last Admin: 08/09/18 22:09 Dose: 1 ea Dextrose (Dextrose 50% Inj) 0 ml IV STAT PRN; Protocol PRN Reason: Hypoglycemia Protocol Dextrose (Glutose 15) 0 gm PO ONCE PRN; Protocol PRN Reason: Hypoglycemia Protocol Glucagon (Glucagen Diagnostic Kit) 0 mg IM STAT PRN; Protocol PRN Reason: Hypoglycemia Protocol Guaifenesin/Dextromethorphan (Robitussin Dm) 5 ml PO Q4H PRN PRN Reason: Cough Last Admin: 07/31/18 21:39 Dose: 5 ml Heparin Sodium (Porcine) (Heparin) 5,000 units SC Q12 [facility] Last Admin: 08/04/18 09:03 Dose: 5,000 units Meropenem 1 gm/ Sodium (Chloride) 100 mls @ 100 mls/hr IVPB Q8H [facility]; Protocol Last Admin: 08/10/18 13:32 Dose: 100 mls/hr Ibuprofen (Motrin Tab) 600 mg PO TID PRN PRN Reason: Pain, moderate (4-7) Last Admin: 07/12/18 17:15 Dose: 600 mg Insulin Aspart (Novolog) 12 unit SC TID [facility] Last Admin: 08/10/18 13:36 Dose: 12 units Insulin Glargine (Lantus) 45 unit SC HS [facility] Last Admin: 08/09/18 22:54 Dose: Not Given Insulin Human Regular (Novolin R) 0 unit SC ACHS [facility]; Protocol Last Admin: 08/10/18 12:04 Dose: 8 units Methylprednisolone (Solu-Medrol) 60 mg IV Q6 [facility] Last Admin: 08/10/18 12:07 Dose: 60 mg Multivitamins (Hexavitamin) 1 tab PO DAILY [facility] Last Admin: 08/10/18 10:56 Dose: 1 tab Mycophenolate Mofetil (Cellcept) 500 mg PO BID [facility] Last Admin: 08/10/18 10:52 Dose: 500 mg Nystatin (Nystatin Oral Susp) 5 ml PO QID [facility] Last Admin: 08/10/18 11:17 Dose: 5 ml Pantoprazole Sodium (Protonix Ec Tab) 40 mg PO DAILY [facility] Last Admin: 08/10/18 10:56 Dose: 40 mg Tramadol HCl (Ultram) 25 mg PO TID PRN PRN Reason: Pain, severe (8-10) Last Admin: 07/27/18 17:28 Dose: 25 mg Zolpidem Tartrate (Ambien) 5 mg PO HS PRN PRN Reason: Insomnia Last Admin: 08/06/18 21:47 Dose: 5 mg - Labs Labs: 08/10/18 07:14 08/10/18 07:14 PT 12.6 SECONDS (9.7-12.2) H 07/27/18 07:05 INR 1.2 07/27/18 07:05 APTT 30 SECONDS (21-34) 07/27/18 07:05 Assessment and Plan (1) Pulmonary fibrosis Status: Acute (2) Chronic respiratory failure with hypoxia Status: Acute Attending/Attestation - Attestation I have personally seen and examined this patient.: Yes I have fully participated in the care of the patient.: Yes I have reviewed all pertinent clinical information, including history, physical exam and plan: Yes Notes (Text): 08/10/18 15:44 patient seen and examined Complaining off lower extremity weakness Taper steroids Physical therapy Followup chest x-ray
[2018-08-10] MEDS: Tramadol 25 mg PO PRN (21:57)
[2018-08-10] MEDS: (Lantus) Insulin Glargine, Recombinant SC SCH (22:14)
[2018-08-10] MEDS ORDERED: Albuterol-Ipratrop 3 mg / 0.5 (3 ml) UD INH PRN (22:37)
--- NOTE | 2018-08-11 02:44 | CP.PCM.PN ---
<Irasema Gibson - Last Filed: 08/11/18 06:30> Subjective - Date & Time of Evaluation Date of Evaluation: 08/11/18 Time of Evaluation: 04:20 - Subjective Subjective: Patient examined at bedside. No acute events overnight. Patient reports continued shortness of breath off oxygen. Reports increased hunger and weakness. All other ROS are negative except as mentioned above. Objective - Vital Signs/Intake and Output Vital Signs (last 24 hours): Temp Pulse Resp BP Pulse Ox 98 F 119 H 20 126/85 100 08/10/18 23:20 08/11/18 00:11 08/10/18 23:20 08/10/18 15:58 08/10/18 23:20 Intake and Output: 08/10/18 08/11/18 18:59 06:59 Intake Total 450 Balance 450 - Medications Medications: Current Medications Acetaminophen (Tylenol 325mg Tab) 650 mg PO Q6 PRN PRN Reason: Pain, Mild (1-3) Last Admin: 08/01/18 08:07 Dose: 650 mg Albuterol/Ipratropium (Duoneb 3 Mg/0.5 Mg (3 Ml) Ud) 3 ml INH RQ6 PRN PRN Reason: Shortness of Breath Dextrose (Dextrose 50% Inj) 0 ml IV STAT PRN; Protocol PRN Reason: Hypoglycemia Protocol Dextrose (Glutose 15) 0 gm PO ONCE PRN; Protocol PRN Reason: Hypoglycemia Protocol Glucagon (Glucagen Diagnostic Kit) 0 mg IM STAT PRN; Protocol PRN Reason: Hypoglycemia Protocol Guaifenesin/Dextromethorphan (Robitussin Dm) 5 ml PO Q4H PRN PRN Reason: Cough Last Admin: 07/31/18 21:39 Dose: 5 ml Heparin Sodium (Porcine) (Heparin) 5,000 units SC Q12 [facility] Last Admin: 08/10/18 22:13 Dose: 5,000 units Meropenem 1 gm/ Sodium (Chloride) 100 mls @ 100 mls/hr IVPB Q8H [facility]; Protocol Last Admin: 08/10/18 21:47 Dose: 100 mls/hr Ibuprofen (Motrin Tab) 600 mg PO TID PRN PRN Reason: Pain, moderate (4-7) Last Admin: 07/12/18 17:15 Dose: 600 mg Insulin Aspart (Novolog) 12 unit SC [facility] Last Admin: 08/10/18 16:30 Dose: Not Given Insulin Glargine (Lantus) 45 unit SC HS [facility] Last Admin: 08/10/18 22:14 Dose: 45 units Insulin Human Regular (Novolin R) 0 unit SC ACHS [facility]; Protocol Last Admin: 08/10/18 21:56 Dose: 2 units Methylprednisolone (Solu-Medrol) 60 mg IV Q6 [facility] Last Admin: 08/10/18 23:30 Dose: 60 mg Multivitamins (Hexavitamin) 1 tab PO DAILY [facility] Last Admin: 08/10/18 10:56 Dose: 1 tab Mycophenolate Mofetil (Cellcept) 500 mg PO BID [facility] Last Admin: 08/10/18 18:00 Dose: 500 mg Nystatin (Nystatin Oral Susp) 5 ml PO QID [facility] Last Admin: 08/10/18 21:56 Dose: 5 ml Pantoprazole Sodium (Protonix Ec Tab) 40 mg PO DAILY [facility] Last Admin: 08/10/18 10:56 Dose: 40 mg Tramadol HCl (Ultram) 25 mg PO TID PRN PRN Reason: Pain, severe (8-10) Last Admin: 08/10/18 21:57 Dose: 25 mg Zolpidem Tartrate (Ambien) 5 mg PO HS PRN PRN Reason: Insomnia Last Admin: 08/10/18 21:57 Dose: 5 mg - Labs Labs: 08/10/18 07:14 08/10/18 07:14 PT 12.6 SECONDS (9.7-12.2) H 07/27/18 07:05 INR 1.2 07/27/18 07:05 APTT 30 SECONDS (21-34) 07/27/18 07:05 - Additional Findings Additional findings: - Constitutional Appears: Non-toxic, No Acute Distress - Head Exam Head Exam: ATRAUMATIC, NORMOCEPHALIC - Eye Exam Eye Exam: Normal appearance - ENT Exam ENT Exam: Mucous Membranes Moist - Neck Exam Neck Exam: absent: Lymphadenopathy, Tenderness - Respiratory Exam Respiratory Exam: Rales (b/l bases). absent: Accessory Muscle Use, Respiratory Distress - Cardiovascular Exam Cardiovascular Exam: REGULAR RHYTHM, +S1, +S2 - GI/Abdominal Exam GI & Abdominal Exam: Soft. absent: Distended, Firm, Guarding, Rigid, Tenderness - Extremities Exam Extremities Exam: absent: Calf Tenderness, Pedal Edema - Neurological Exam Neurological Exam: Alert, Awake, Oriented x3 Neuro motor strength exam: Left Upper Extremity: 5, Right Upper Extremity: 5, Left Lower Extremity: 5, Right Lower Extremity: 5 - Psychiatric Exam Psychiatric exam: Normal Affect, Normal Mood - Skin Skin Exam: Dry, Warm Assessment and Plan - Assessment and Plan (Free Text) Assessment: 63 year old male admitted for evaluation and treatment of dyspnea 2/2 ILD Plan: Interstitial pulmonary fibrosis -patient has history of tobacco use and environmental exposure from work -BiPAP as needed, nonrebreather mask at 15% - Duoneb Q4H [facility] - Solumedrol 60 mg IVP Q6H - Robitussin DM 5 mL PO Q4H PRN - Meropenem 1 g Q8H - Mycophenolate mofetil 500mg PO BID - Pulmonology recs (Dr. Vera) appreciated - f/u further ID recs (Dr. Ritter) Pre-diabetes mellitus, chronic - A1c 5.5 - elevated glucose levels on accuchecks - 2/2 to steroid use - Novolog 12U actid - Glargine 45U hs -accuchecks ACHS -hypoglycemic protocol Insomnia - Tylenol/Codeine 300/30 1 tablet QHS - Ambien 5mg PO HS PRN for insomnia PPx, Diet, Disposition -DVT ppx: heparin 5000 q12 -GI ppx: protonix 40 mg PO daily - pain control with tylenol (mild pain), ibuprofen (moderate pain), Ultram (severe pain) - Diet: dietary supplements: Ensure Enlive TID, MV daily, HHD - palliative care consult - PT recommending pt stay active - OT Will discuss with Dr. Ragsdale -Irasema Gibson, PGY-1 <Aj Ragsdale - Last Filed: 08/15/18 21:02> Objective - Vital Signs/Intake and Output Vital Signs (last 24 hours): Temp Pulse Resp BP Pulse Ox 97.9 F 110 H 20 137/89 100 08/15/18 16:40 08/15/18 16:40 08/15/18 16:40 08/15/18 16:40 08/15/18 16:40 Intake and Output: 08/15/18 08/16/18 18:59 06:59 Intake Total 710 Output Total 1350 Balance -640 - Medications Medications: Current Medications Acetaminophen (Tylenol 325mg Tab) 650 mg PO Q6 PRN PRN Reason: Pain, Mild (1-3) Last Admin: 08/01/18 08:07 Dose: 650 mg Albuterol Sulfate (Albuterol 0.083% Inhal Stephany (2.5 Mg/3 Ml) Ud) 2.5 mg INH RQ6 PRN PRN Reason: Shortness of Breath Albuterol/Ipratropium (Duoneb 3 Mg/0.5 Mg (3 Ml) Ud) 3 ml INH RQ4 [facility] Last Admin: 08/15/18 19:34 Dose: 3 ml Dextrose (Dextrose 50% Inj) 0 ml IV STAT PRN; Protocol PRN Reason: Hypoglycemia Protocol Dextrose (Glutose 15) 0 gm PO ONCE PRN; Protocol PRN Reason: Hypoglycemia Protocol Glucagon (Glucagen Diagnostic Kit) 0 mg IM STAT PRN; Protocol PRN Reason: Hypoglycemia Protocol Guaifenesin/Dextromethorphan (Robitussin Dm) 5 ml PO Q4H PRN PRN Reason: Cough Last Admin: 08/15/18 09:53 Dose: 5 ml Heparin Sodium (Porcine) (Heparin) 5,000 units SC Q12 [facility] Last Admin: 08/15/18 09:53 Dose: 5,000 units Ibuprofen (Motrin Tab) 600 mg PO TID PRN PRN Reason: Pain, moderate (4-7) Last Admin: 08/14/18 21:36 Dose: 600 mg Insulin Aspart (Novolog) 12 unit SC ACTID [facility] Last Admin: 08/15/18 16:38 Dose: Not Given Insulin Glargine (Lantus) 30 unit SC Q12 [facility] Last Admin: 08/15/18 09:53 Dose: 30 units Insulin Human Regular (Novolin R) 0 unit SC ACHS [facility]; Protocol Last Admin: 08/15/18 16:38 Dose: Not Given Methylprednisolone (Solu-Medrol) 40 mg IV Q6H [facility] Last Admin: 08/15/18 16:38 Dose: 40 mg Multivitamins (Hexavitamin) 1 tab PO DAILY [facility] Last Admin: 08/15/18 09:53 Dose: 1 tab Mycophenolate Mofetil (Cellcept) 500 mg PO BID [facility] Last Admin: 08/15/18 17:43 Dose: 500 mg Pantoprazole Sodium (Protonix Ec Tab) 40 mg PO DAILY [facility] Last Admin: 08/15/18 09:53 Dose: 40 mg Tramadol HCl (Ultram) 25 mg PO TID PRN PRN Reason: Pain, severe (8-10) Last Admin: 08/10/18 21:57 Dose: 25 mg Zolpidem Tartrate (Ambien) 5 mg PO HS PRN PRN Reason: Insomnia Last Admin: 08/14/18 21:37 Dose: 5 mg - Labs Labs: 08/13/18 06:53 08/13/18 06:53 PT 12.6 SECONDS (9.7-12.2) H 07/27/18 07:05 INR 1.2 07/27/18 07:05 APTT 30 SECONDS (21-34) 07/27/18 07:05 Attending/Attestation - Attestation I have personally seen and examined this patient.: Yes I have fully participated in the care of the patient.: Yes I have reviewed all pertinent clinical information, including history, physical exam and plan: Yes Notes (Text): Seen and examined lying on beds with SOB continue current management
[2018-08-11] MEDS: Meropenem 1 GM in Sodium Chloride 0.9% 100 ML IVPB SCH ×4 (05:21→20:16)
[2018-08-11] MEDS: (Novolog) Insulin Aspart, Recombinant 100 u/ml 10 ml vial SC SCH ×3 (08:18→17:48)
[2018-08-11] MEDS: (Novolin R) Insulin Human Regular 100 units/ml vial SC SCH ×4 (08:19→21:53)
[2018-08-11] MEDS: Multiple Vitamins Tab PO SCH (10:16)
[2018-08-11] MEDS: Pantoprazole 40 mg EC Tab PO SCH (10:18)
[2018-08-11] MEDS: Nystatin 100,000 Units/ml Oral Susp 5 ml UD PO SCH ×4 (10:28→21:53)
[2018-08-11] MEDS: Albuterol-Ipratrop 3 mg / 0.5 (3 ml) UD INH SCH ×3 (13:28→19:34)
[2018-08-11] MEDS: (Lantus) Insulin Glargine, Recombinant SC SCH (21:52)
[2018-08-12] MEDS: Albuterol-Ipratrop 3 mg / 0.5 (3 ml) UD INH SCH ×6 (00:09→20:21)
[2018-08-12] MEDS: Meropenem 1 GM in Sodium Chloride 0.9% 100 ML IVPB SCH ×3 (05:06→22:40)
[2018-08-12] MEDS: (Novolog) Insulin Aspart, Recombinant 100 u/ml 10 ml vial SC SCH ×3 (07:30→17:20)
[2018-08-12] MEDS: (Novolin R) Insulin Human Regular 100 units/ml vial SC SCH ×4 (07:30→22:38)
--- NOTE | 2018-08-12 09:31 | CP.PCM.PN ---
<Deepti Simon - Last Filed: 08/12/18 13:12> Subjective - Date & Time of Evaluation Date of Evaluation: 08/12/18 Time of Evaluation: 09:28 - Subjective Subjective: Deepti Simon PGY1 Progress Note for Dr. Ragsdale Pt was examined at bedside this morning. He reports improvement in his shortness of breath. He denies any dizziness, chest pain, abdominal pain, nausea, vomiting, diarrhea, dysuria. He says he is not able to ambulate on his own yet and still requires assistance. Objective - Vital Signs/Intake and Output Vital Signs (last 24 hours): Temp Pulse Resp BP Pulse Ox 97.5 F L 105 H 20 142/91 H 97 08/12/18 07:57 08/12/18 07:57 08/12/18 07:57 08/12/18 07:57 08/12/18 07:57 Intake and Output: 08/12/18 08/12/18 06:59 18:59 Intake Total 500 Balance 500 - Medications Medications: Current Medications Acetaminophen (Tylenol 325mg Tab) 650 mg PO Q6 PRN PRN Reason: Pain, Mild (1-3) Last Admin: 08/01/18 08:07 Dose: 650 mg Albuterol/Ipratropium (Duoneb 3 Mg/0.5 Mg (3 Ml) Ud) 3 ml INH RQ6 PRN PRN Reason: Shortness of Breath Albuterol/Ipratropium (Duoneb 3 Mg/0.5 Mg (3 Ml) Ud) 3 ml INH RQ4 [facility] Last Admin: 08/12/18 03:02 Dose: 3 ml Dextrose (Dextrose 50% Inj) 0 ml IV STAT PRN; Protocol PRN Reason: Hypoglycemia Protocol Dextrose (Glutose 15) 0 gm PO ONCE PRN; Protocol PRN Reason: Hypoglycemia Protocol Glucagon (Glucagen Diagnostic Kit) 0 mg IM STAT PRN; Protocol PRN Reason: Hypoglycemia Protocol Guaifenesin/Dextromethorphan (Robitussin Dm) 5 ml PO Q4H PRN PRN Reason: Cough Last Admin: 07/31/18 21:39 Dose: 5 ml Heparin Sodium (Porcine) (Heparin) 5,000 units SC Q12 [facility] Last Admin: 08/11/18 21:51 Dose: 5,000 units Meropenem 1 gm/ Sodium (Chloride) 100 mls @ 100 mls/hr IVPB Q8H [facility]; Protocol Last Admin: 08/12/18 05:06 Dose: 100 mls/hr Ibuprofen (Motrin Tab) 600 mg PO TID PRN PRN Reason: Pain, moderate (4-7) Last Admin: 08/11/18 20:13 Dose: 600 mg Insulin Aspart (Novolog) 12 unit SC ACTID [facility] Last Admin: 08/11/18 17:48 Dose: 12 units Insulin Glargine (Lantus) 30 unit SC Q12 [facility] Insulin Human Regular (Novolin R) 0 unit SC ACHS [facility]; Protocol Last Admin: 08/11/18 21:53 Dose: Not Given Methylprednisolone (Solu-Medrol) 60 mg IV Q6 [facility] Last Admin: 08/12/18 05:05 Dose: 60 mg Multivitamins (Hexavitamin) 1 tab PO DAILY [facility] Last Admin: 08/11/18 10:16 Dose: 1 tab Mycophenolate Mofetil (Cellcept) 500 mg PO BID [facility] Last Admin: 08/11/18 17:47 Dose: 500 mg Nystatin (Nystatin Oral Susp) 5 ml PO QID [facility] Last Admin: 08/11/18 21:53 Dose: 5 ml Pantoprazole Sodium (Protonix Ec Tab) 40 mg PO DAILY [facility] Last Admin: 08/11/18 10:18 Dose: 40 mg Tramadol HCl (Ultram) 25 mg PO TID PRN PRN Reason: Pain, severe (8-10) Last Admin: 08/10/18 21:57 Dose: 25 mg Zolpidem Tartrate (Ambien) 5 mg PO HS PRN PRN Reason: Insomnia Last Admin: 08/11/18 21:51 Dose: 5 mg - Labs Labs: 08/10/18 07:14 08/10/18 07:14 PT 12.6 SECONDS (9.7-12.2) H 07/27/18 07:05 INR 1.2 07/27/18 07:05 APTT 30 SECONDS (21-34) 07/27/18 07:05 - Additional Findings Additional findings: - Constitutional Appears: Non-toxic, No Acute Distress - Head Exam Head Exam: ATRAUMATIC, NORMOCEPHALIC - Eye Exam Eye Exam: Normal appearance - ENT Exam ENT Exam: Mucous Membranes Moist - Neck Exam Neck Exam: absent: Lymphadenopathy, Tenderness - Respiratory Exam Respiratory Exam: Rales (b/l bases). absent: Accessory Muscle Use, Respiratory Distress - Cardiovascular Exam Cardiovascular Exam: REGULAR RHYTHM, +S1, +S2 - GI/Abdominal Exam GI & Abdominal Exam: Soft. absent: Distended, Firm, Guarding, Rigid, Tenderness - Extremities Exam Extremities Exam: absent: Calf Tenderness, Pedal Edema - Neurological Exam Neurological Exam: Alert, Awake, Oriented x3 Neuro motor strength exam: Left Upper Extremity: 5, Right Upper Extremity: 5, Left Lower Extremity: 5, Right Lower Extremity: 5 - Psychiatric Exam Psychiatric exam: Normal Affect, Normal Mood - Skin Skin Exam: Dry, Warm Assessment and Plan - Assessment and Plan (Free Text) Assessment: 63 year old male admitted for evaluation and treatment of dyspnea 2/2 ILD Plan: Interstitial pulmonary fibrosis - patient has history of tobacco use and environmental exposure from work - BiPAP as needed, nonrebreather mask at 15% - Duoneb Q4H [facility] - Solumedrol 60 mg IVP Q6H - Robitussin DM 5 mL PO Q4H PRN - Meropenem 1 g Q8H - Mycophenolate mofetil 500mg PO BID - Pulmonology recs (Dr. Vera) appreciated - f/u further ID recs (Dr. Ritter) Pre-diabetes mellitus, chronic - A1c 5.5 - elevated glucose levels on accuchecks - 2/2 to steroid use - Novolog 12U actid - Glargine 45U hs - accuchecks ACHS - hypoglycemic protocol Insomnia - Tylenol/Codeine 300/30 1 tablet QHS - Ambien 5mg PO HS PRN for insomnia PPx, Diet, Disposition - DVT ppx: heparin 5000 q12 - GI ppx: protonix 40 mg PO daily - pain control with tylenol (mild pain), ibuprofen (moderate pain), Ultram (severe pain) - Diet: dietary supplements: Ensure Enlive TID, MV daily, HHD - palliative care consult - PT recommending pt stay active - OT Pt seen and case discussed with Dr. Ragsdale <Aj Ragsdale - Last Filed: 08/15/18 21:01> Objective - Vital Signs/Intake and Output Vital Signs (last 24 hours): Temp Pulse Resp BP Pulse Ox 97.9 F 110 H 20 137/89 100 08/15/18 16:40 08/15/18 16:40 08/15/18 16:40 08/15/18 16:40 08/15/18 16:40 Intake and Output: 08/15/18 08/16/18 18:59 06:59 Intake Total 710 Output Total 1350 Balance -640 - Medications Medications: Current Medications Acetaminophen (Tylenol 325mg Tab) 650 mg PO Q6 PRN PRN Reason: Pain, Mild (1-3) Last Admin: 08/01/18 08:07 Dose: 650 mg Albuterol Sulfate (Albuterol 0.083% Inhal Stephany (2.5 Mg/3 Ml) Ud) 2.5 mg INH RQ6 PRN PRN Reason: Shortness of Breath Albuterol/Ipratropium (Duoneb 3 Mg/0.5 Mg (3 Ml) Ud) 3 ml INH RQ4 [facility] Last Admin: 08/15/18 19:34 Dose: 3 ml Dextrose (Dextrose 50% Inj) 0 ml IV STAT PRN; Protocol PRN Reason: Hypoglycemia Protocol Dextrose (Glutose 15) 0 gm PO ONCE PRN; Protocol PRN Reason: Hypoglycemia Protocol Glucagon (Glucagen Diagnostic Kit) 0 mg IM STAT PRN; Protocol PRN Reason: Hypoglycemia Protocol Guaifenesin/Dextromethorphan (Robitussin Dm) 5 ml PO Q4H PRN PRN Reason: Cough Last Admin: 08/15/18 09:53 Dose: 5 ml Heparin Sodium (Porcine) (Heparin) 5,000 units SC Q12 [facility] Last Admin: 08/15/18 09:53 Dose: 5,000 units Ibuprofen (Motrin Tab) 600 mg PO TID PRN PRN Reason: Pain, moderate (4-7) Last Admin: 08/14/18 21:36 Dose: 600 mg Insulin Aspart (Novolog) 12 unit SC ACTID [facility] Last Admin: 08/15/18 16:38 Dose: Not Given Insulin Glargine (Lantus) 30 unit SC Q12 [facility] Last Admin: 08/15/18 09:53 Dose: 30 units Insulin Human Regular (Novolin R) 0 unit SC ACHS [facility]; Protocol Last Admin: 08/15/18 16:38 Dose: Not Given Methylprednisolone (Solu-Medrol) 40 mg IV Q6H [facility] Last Admin: 08/15/18 16:38 Dose: 40 mg Multivitamins (Hexavitamin) 1 tab PO DAILY [facility] Last Admin: 08/15/18 09:53 Dose: 1 tab Mycophenolate Mofetil (Cellcept) 500 mg PO BID [facility] Last Admin: 08/15/18 17:43 Dose: 500 mg Pantoprazole Sodium (Protonix Ec Tab) 40 mg PO DAILY [facility] Last Admin: 08/15/18 09:53 Dose: 40 mg Tramadol HCl (Ultram) 25 mg PO TID PRN PRN Reason: Pain, severe (8-10) Last Admin: 08/10/18 21:57 Dose: 25 mg Zolpidem Tartrate (Ambien) 5 mg PO HS PRN PRN Reason: Insomnia Last Admin: 08/14/18 21:37 Dose: 5 mg - Labs Labs: 08/13/18 06:53 08/13/18 06:53 PT 12.6 SECONDS (9.7-12.2) H 07/27/18 07:05 INR 1.2 07/27/18 07:05 APTT 30 SECONDS (21-34) 07/27/18 07:05 Attending/Attestation - Attestation I have personally seen and examined this patient.: Yes I have fully participated in the care of the patient.: Yes I have reviewed all pertinent clinical information, including history, physical exam and plan: Yes Notes (Text): Encourage to use BIPAP only night time and avoid nonrebreather Patient has no family,DNR and DNI poor prognosis
[2018-08-12] MEDS: Pantoprazole 40 mg EC Tab PO SCH (10:00)
[2018-08-12] MEDS: Multiple Vitamins Tab PO SCH (10:00)
[2018-08-12] MEDS: (Lantus) Insulin Glargine, Recombinant SC SCH ×2 (10:00→22:38)
[2018-08-12] MEDS: guaiFENesin DM 100 mg-10 mg/5 ml UD PO PRN (10:00)
[2018-08-12] MEDS: Nystatin 100,000 Units/ml Oral Susp 5 ml UD PO SCH ×4 (10:00→22:39)
[2018-08-13] MEDS: Albuterol-Ipratrop 3 mg / 0.5 (3 ml) UD INH SCH ×7 (00:50→19:40)
[2018-08-13] MEDS: Meropenem 1 GM in Sodium Chloride 0.9% 100 ML IVPB SCH ×4 (05:18→21:56)
[2018-08-13 06:59] LABS: BASO % 0.5 % (0.0-2.0); HEMOGLOBIN 13.2 g/dL (12.0-18.0); LYMPH # 0.3 K/uL (1.0-4.3); LYMPH % 3.8 % (20.0-40.0); MEAN CELL VOLUME 95.3 fL (80.0-94.0); MEAN CORPUSCULAR HEMOGLOBIN 31.5 pg (27.0-31.0); MEAN CORPUSCULAR HGB CONC 33.1 g/dL (33.0-37.0); MEAN PLATELET VOLUME 8.8 fL (7.2-11.7); MONO # 0.2 K/uL (0.0-0.8); MONO % 2.5 % (0.0-10.0); NEUT # 7.3 K/uL (1.8-7.0); NEUT % 93.2 % (50.0-75.0); NRBC % 0.1 % (0.0-2.0); PLATELET COUNT 126 K/uL (130-400); RBC 4.19 Mil/uL (4.40-5.90); RED CELL DISTRIBUTION WIDTH 16.1 % (11.5-14.5); WHITE BLOOD COUNT 7.9 K/uL (4.8-10.8)
[2018-08-13 07:46] LABS: AST/SGOT 27 U/L (17-59)
[2018-08-13 07:47] LABS: ALBUMIN 2.7 g/dL (3.5-5.0); ALT/SGPT 42 U/L (21-72); BLOOD UREA NITROGEN 23 mg/dL (9-20); CALCIUM 7.8 mg/dl (8.6-10.4); GFR NON-AFRICAN AMERICAN > 60
[2018-08-13] MEDS: (Novolog) Insulin Aspart, Recombinant 100 u/ml 10 ml vial SC SCH ×3 (08:00→17:05)
[2018-08-13] MEDS: (Novolin R) Insulin Human Regular 100 units/ml vial SC SCH ×4 (08:00→21:30)
[2018-08-13 09:46] LABS: BANDS 4 % (0-2); LYMPHOCYTE 2 % (20-40); MONOCYTE 3 % (0-10); NEUTROPHIL 91 % (50-75); PLATELET ESTIMATE SLIGHTLY DECREASED (NORMAL); TOTAL CELLS COUNTED 100
[2018-08-13 09:47] LABS: ANISOCYTOSIS SLIGHT; LARGE PLATELETS PRESENT; STOMATOCYTES MODERATE
[2018-08-13] MEDS: guaiFENesin DM 100 mg-10 mg/5 ml UD PO PRN (11:19)
[2018-08-13] MEDS: Multiple Vitamins Tab PO SCH (11:19)
[2018-08-13] MEDS: Pantoprazole 40 mg EC Tab PO SCH (11:19)
[2018-08-13] MEDS: Nystatin 100,000 Units/ml Oral Susp 5 ml UD PO SCH ×4 (11:19→21:55)
[2018-08-13] MEDS: (Lantus) Insulin Glargine, Recombinant SC SCH ×2 (11:20→21:55)
--- NOTE | 2018-08-13 12:24 | CP.PCM.PN ---
<Adrian Tarango - Last Filed: 08/13/18 19:43> Subjective - Date & Time of Evaluation Date of Evaluation: 08/13/18 Time of Evaluation: 09:00 - Subjective Subjective: PGY-[address] Ragsdale service Patient is seen and examined at bedside. Patient denies any acute events overnight. Patient is currently using nonrebreather mask, but was using bipap previously but refused due to discomfort of high flow. Patient denies any other complaints. Patient continues to complain of leg weakness. Patient is eating normally, and having BM. Patient denies fever, chills, chest pain, sob, nausea, vomiting, diarrhea, constipation, urinary symptoms. Objective - Vital Signs/Intake and Output Vital Signs (last 24 hours): Temp Pulse Resp BP Pulse Ox 98.2 F 109 H 20 140/82 98 08/13/18 08:00 08/13/18 08:00 08/13/18 08:00 08/13/18 08:00 08/13/18 08:00 Intake and Output: 08/13/18 08/13/18 06:59 18:59 Intake Total 450 Output Total 500 Balance -50 - Medications Medications: Current Medications Acetaminophen (Tylenol 325mg Tab) 650 mg PO Q6 PRN PRN Reason: Pain, Mild (1-3) Last Admin: 08/01/18 08:07 Dose: 650 mg Albuterol/Ipratropium (Duoneb 3 Mg/0.5 Mg (3 Ml) Ud) 3 ml INH RQ6 PRN PRN Reason: Shortness of Breath Albuterol/Ipratropium (Duoneb 3 Mg/0.5 Mg (3 Ml) Ud) 3 ml INH RQ4 [facility] Last Admin: 08/13/18 03:55 Dose: 3 ml Dextrose (Dextrose 50% Inj) 0 ml IV STAT PRN; Protocol PRN Reason: Hypoglycemia Protocol Dextrose (Glutose 15) 0 gm PO ONCE PRN; Protocol PRN Reason: Hypoglycemia Protocol Glucagon (Glucagen Diagnostic Kit) 0 mg IM STAT PRN; Protocol PRN Reason: Hypoglycemia Protocol Guaifenesin/Dextromethorphan (Robitussin Dm) 5 ml PO Q4H PRN PRN Reason: Cough Last Admin: 08/13/18 11:19 Dose: 5 ml Heparin Sodium (Porcine) (Heparin) 5,000 units SC Q12 [facility] Last Admin: 08/13/18 11:20 Dose: 5,000 units Meropenem 1 gm/ Sodium (Chloride) 100 mls @ 100 mls/hr IVPB Q8H [facility]; Protocol Last Admin: 08/13/18 11:32 Dose: 100 mls/hr Ibuprofen (Motrin Tab) 600 mg PO TID PRN PRN Reason: Pain, moderate (4-7) Last Admin: 08/11/18 20:13 Dose: 600 mg Insulin Aspart (Novolog) 12 unit SC ACTID [facility] Last Admin: 08/13/18 11:32 Dose: 12 units Insulin Glargine (Lantus) 30 unit SC Q12 [facility] Last Admin: 08/13/18 11:20 Dose: 30 units Insulin Human Regular (Novolin R) 0 unit SC ACHS [facility]; Protocol Last Admin: 08/13/18 11:32 Dose: 4 units Methylprednisolone (Solu-Medrol) 60 mg IV Q6 [facility] Last Admin: 08/13/18 11:18 Dose: 60 mg Multivitamins (Hexavitamin) 1 tab PO DAILY [facility] Last Admin: 08/13/18 11:19 Dose: 1 tab Mycophenolate Mofetil (Cellcept) 500 mg PO BID [facility] Last Admin: 08/13/18 11:19 Dose: 500 mg Nystatin (Nystatin Oral Susp) 5 ml PO QID [facility] Last Admin: 08/13/18 11:19 Dose: 5 ml Pantoprazole Sodium (Protonix Ec Tab) 40 mg PO DAILY [facility] Last Admin: 08/13/18 11:19 Dose: 40 mg Tramadol HCl (Ultram) 25 mg PO TID PRN PRN Reason: Pain, severe (8-10) Last Admin: 08/10/18 21:57 Dose: 25 mg Zolpidem Tartrate (Ambien) 5 mg PO HS PRN PRN Reason: Insomnia Last Admin: 08/12/18 23:44 Dose: 5 mg - Labs Labs: 08/13/18 06:53 08/13/18 06:53 PT 12.6 SECONDS (9.7-12.2) H 07/27/18 07:05 INR 1.2 07/27/18 07:05 APTT 30 SECONDS (21-34) 07/27/18 07:05 - Constitutional Appears: Non-toxic, No Acute Distress, Chronically Ill - Head Exam Head Exam: ATRAUMATIC, NORMAL INSPECTION, NORMOCEPHALIC - Eye Exam Eye Exam: EOMI, Normal appearance - ENT Exam ENT Exam: Mucous Membranes Moist, Normal Exam - Neck Exam Neck Exam: Full ROM, Normal Inspection - Respiratory Exam Respiratory Exam: Accessory Muscle Use, Decreased Breath Sounds, Clear to Ausculation Bilateral, Rales, NORMAL BREATHING PATTERN. absent: Rhonchi, Wheezes - Cardiovascular Exam Cardiovascular Exam: Tachycardia, REGULAR RHYTHM, +S1, +S2 - GI/Abdominal Exam GI & Abdominal Exam: Soft, Normal Bowel Sounds. absent: Distended, Tenderness - Extremities Exam Additional comments: muscle wasting b/l LE - Back Exam Back Exam: NORMAL INSPECTION - Neurological Exam Neurological Exam: Alert, Awake, Oriented x3 - Psychiatric Exam Psychiatric exam: Normal Affect, Normal Mood - Skin Skin Exam: Dry, Intact, Normal Color, Warm Assessment and Plan - Assessment and Plan (Free Text) Plan: Interstitial pulmonary fibrosis - patient has history of tobacco use and environmental exposure from work - BiPAP as needed, nonrebreather mask at 15% - patient continues to refuse Bipap after 2 hours, switches to nonrebreather mask - CO2 - 41 - encourage patient to use BIPAP - continue to follow up - Duoneb Q4H [facility] - Solumedrol 60 mg IVP Q6H - Robitussin DM 5 mL PO Q4H PRN - Meropenem 1 g Q8H - Mycophenolate mofetil 500mg PO BID - Pulmonology recs (Dr. Vera) - leg weakness most likely due to steroid use, taper steroid, encourage ambulation, PT, follow up chest xray - f/u further ID recs (Dr. Ritter) Pre-diabetes mellitus, chronic - A1c 5.5 - elevated glucose levels on accuchecks - 2/2 to steroid use - Novolog 12U actid - Glargine 45U hs - accuchecks ACHS - hypoglycemic protocol Insomnia - Tylenol/Codeine 300/30 1 tablet QHS - Ambien 5mg PO HS PRN for insomnia PPx, Diet, Disposition - DVT ppx: heparin 5000 q12 - GI ppx: protonix 40 mg PO daily - pain control with tylenol (mild pain), ibuprofen (moderate pain), Ultram (severe pain) - Diet: dietary supplements: Ensure Enlive TID, MV daily, HHD - palliative care consult - PT recommending pt stay active - OT Pt seen and case discussed with Dr. Jn Tarango, PGY-1 <Aj Ragsdale - Last Filed: 08/15/18 21:00> Objective - Vital Signs/Intake and Output Vital Signs (last 24 hours): Temp Pulse Resp BP Pulse Ox 97.9 F 110 H 20 137/89 100 08/15/18 16:40 08/15/18 16:40 08/15/18 16:40 08/15/18 16:40 08/15/18 16:40 Intake and Output: 08/15/18 08/16/18 18:59 06:59 Intake Total 710 Output Total 1350 Balance -640 - Medications Medications: Current Medications Acetaminophen (Tylenol 325mg Tab) 650 mg PO Q6 PRN PRN Reason: Pain, Mild (1-3) Last Admin: 08/01/18 08:07 Dose: 650 mg Albuterol Sulfate (Albuterol 0.083% Inhal Stephany (2.5 Mg/3 Ml) Ud) 2.5 mg INH RQ6 PRN PRN Reason: Shortness of Breath Albuterol/Ipratropium (Duoneb 3 Mg/0.5 Mg (3 Ml) Ud) 3 ml INH RQ4 [facility] Last Admin: 08/15/18 19:34 Dose: 3 ml Dextrose (Dextrose 50% Inj) 0 ml IV STAT PRN; Protocol PRN Reason: Hypoglycemia Protocol Dextrose (Glutose 15) 0 gm PO ONCE PRN; Protocol PRN Reason: Hypoglycemia Protocol Glucagon (Glucagen Diagnostic Kit) 0 mg IM STAT PRN; Protocol PRN Reason: Hypoglycemia Protocol Guaifenesin/Dextromethorphan (Robitussin Dm) 5 ml PO Q4H PRN PRN Reason: Cough Last Admin: 08/15/18 09:53 Dose: 5 ml Heparin Sodium (Porcine) (Heparin) 5,000 units SC Q12 [facility] Last Admin: 08/15/18 09:53 Dose: 5,000 units Ibuprofen (Motrin Tab) 600 mg PO TID PRN PRN Reason: Pain, moderate (4-7) Last Admin: 08/14/18 21:36 Dose: 600 mg Insulin Aspart (Novolog) 12 unit SC ACTID [facility] Last Admin: 08/15/18 16:38 Dose: Not Given Insulin Glargine (Lantus) 30 unit SC Q12 [facility] Last Admin: 08/15/18 09:53 Dose: 30 units Insulin Human Regular (Novolin R) 0 unit SC ACHS [facility]; Protocol Last Admin: 08/15/18 16:38 Dose: Not Given Methylprednisolone (Solu-Medrol) 40 mg IV Q6H [facility] Last Admin: 08/15/18 16:38 Dose: 40 mg Multivitamins (Hexavitamin) 1 tab PO DAILY [facility] Last Admin: 08/15/18 09:53 Dose: 1 tab Mycophenolate Mofetil (Cellcept) 500 mg PO BID [facility] Last Admin: 08/15/18 17:43 Dose: 500 mg Pantoprazole Sodium (Protonix Ec Tab) 40 mg PO DAILY [facility] Last Admin: 08/15/18 09:53 Dose: 40 mg Tramadol HCl (Ultram) 25 mg PO TID PRN PRN Reason: Pain, severe (8-10) Last Admin: 08/10/18 21:57 Dose: 25 mg Zolpidem Tartrate (Ambien) 5 mg PO HS PRN PRN Reason: Insomnia Last Admin: 08/14/18 21:37 Dose: 5 mg - Labs Labs: 08/13/18 06:53 08/13/18 06:53 PT 12.6 SECONDS (9.7-12.2) H 07/27/18 07:05 INR 1.2 07/27/18 07:05 APTT 30 SECONDS (21-34) 07/27/18 07:05 Attending/Attestation - Attestation I have personally seen and examined this patient.: Yes I have fully participated in the care of the patient.: Yes I have reviewed all pertinent clinical information, including history, physical exam and plan: Yes Notes (Text): seen and examined no changes Assessment and the plan discussed with the resident and I agree with the resident's documentation
--- NOTE | 2018-08-13 18:26 | CP.PCM.PN ---
Subjective - Date & Time of Evaluation Date of Evaluation: 08/13/18 Time of Evaluation: 10:00 - Subjective Subjective: 63 year old male with pmh pulmonary fibrosis consulted for dyspnea. Patient states weakness and breathing have been better. Still on and off bipap. Able to move all extremities without problems. Denies fever, chills, CP, cough, hemoptysis. Patient seen and examined at bedside, no acute distress. Afebrile, breathing comfortably and speaking in full sentences on room air, SpO2 97% Decreased breath sounds, rales at bases bilaterally 1/3 WBC 12.9 1/2 CXR no active pulmonary disease, no pleural effusion, no pneumothorax, improved left lower lobe infiltrate Lower extremity weakness likely related to steroid use taper steroids continue PT, encouraged ambulation. follow up CXR Objective - Vital Signs/Intake and Output Vital Signs (last 24 hours): Temp Pulse Resp BP Pulse Ox 98.1 F 102 H 16 146/91 H 100 08/13/18 17:18 08/13/18 17:18 08/13/18 17:18 08/13/18 17:18 08/13/18 17:18 Intake and Output: 08/13/18 08/13/18 06:59 18:59 Intake Total 450 Output Total 500 Balance -50 - Medications Medications: Current Medications Acetaminophen (Tylenol 325mg Tab) 650 mg PO Q6 PRN PRN Reason: Pain, Mild (1-3) Last Admin: 08/01/18 08:07 Dose: 650 mg Albuterol/Ipratropium (Duoneb 3 Mg/0.5 Mg (3 Ml) Ud) 3 ml INH RQ6 PRN PRN Reason: Shortness of Breath Albuterol/Ipratropium (Duoneb 3 Mg/0.5 Mg (3 Ml) Ud) 3 ml INH RQ4 [facility] Last Admin: 08/13/18 15:40 Dose: Not Given Dextrose (Dextrose 50% Inj) 0 ml IV STAT PRN; Protocol PRN Reason: Hypoglycemia Protocol Dextrose (Glutose 15) 0 gm PO ONCE PRN; Protocol PRN Reason: Hypoglycemia Protocol Glucagon (Glucagen Diagnostic Kit) 0 mg IM STAT PRN; Protocol PRN Reason: Hypoglycemia Protocol Guaifenesin/Dextromethorphan (Robitussin Dm) 5 ml PO Q4H PRN PRN Reason: Cough Last Admin: 08/13/18 11:19 Dose: 5 ml Heparin Sodium (Porcine) (Heparin) 5,000 units SC Q12 [facility] Last Admin: 08/13/18 11:20 Dose: 5,000 units Meropenem 1 gm/ Sodium (Chloride) 100 mls @ 100 mls/hr IVPB Q8H [facility]; Protocol Last Admin: 08/13/18 13:41 Dose: Not Given Ibuprofen (Motrin Tab) 600 mg PO TID PRN PRN Reason: Pain, moderate (4-7) Last Admin: 08/11/18 20:13 Dose: 600 mg Insulin Aspart (Novolog) 12 unit SC ACTID [facility] Last Admin: 08/13/18 17:05 Dose: Not Given Insulin Glargine (Lantus) 30 unit SC Q12 [facility] Last Admin: 08/13/18 11:20 Dose: 30 units Insulin Human Regular (Novolin R) 0 unit SC ACHS [facility]; Protocol Last Admin: 08/13/18 17:05 Dose: Not Given Methylprednisolone (Solu-Medrol) 60 mg IV Q6 [facility] Last Admin: 08/13/18 17:54 Dose: 60 mg Multivitamins (Hexavitamin) 1 tab PO DAILY [facility] Last Admin: 08/13/18 11:19 Dose: 1 tab Mycophenolate Mofetil (Cellcept) 500 mg PO BID [facility] Last Admin: 08/13/18 17:54 Dose: 500 mg Nystatin (Nystatin Oral Susp) 5 ml PO QID [facility] Last Admin: 08/13/18 17:55 Dose: 5 ml Pantoprazole Sodium (Protonix Ec Tab) 40 mg PO DAILY [facility] Last Admin: 08/13/18 11:19 Dose: 40 mg Tramadol HCl (Ultram) 25 mg PO TID PRN PRN Reason: Pain, severe (8-10) Last Admin: 08/10/18 21:57 Dose: 25 mg Zolpidem Tartrate (Ambien) 5 mg PO HS PRN PRN Reason: Insomnia Last Admin: 08/12/18 23:44 Dose: 5 mg - Labs Labs: 08/13/18 06:53 08/13/18 06:53 PT 12.6 SECONDS (9.7-12.2) H 07/27/18 07:05 INR 1.2 07/27/18 07:05 APTT 30 SECONDS (21-34) 07/27/18 07:05 Assessment and Plan (1) Pulmonary fibrosis Status: Acute (2) Chronic respiratory failure with hypoxia Status: Acute
[2018-08-14] MEDS: Albuterol-Ipratrop 3 mg / 0.5 (3 ml) UD INH SCH ×6 (00:20→19:29)
[2018-08-14] MEDS: (Novolin R) Insulin Human Regular 100 units/ml vial SC SCH ×4 (08:31→21:22)
[2018-08-14] MEDS: (Novolog) Insulin Aspart, Recombinant 100 u/ml 10 ml vial SC SCH ×3 (08:31→17:47)
[2018-08-14] MEDS: Nystatin 100,000 Units/ml Oral Susp 5 ml UD PO SCH ×2 (10:48→14:38)
[2018-08-14] MEDS: Multiple Vitamins Tab PO SCH (10:48)
[2018-08-14] MEDS: Pantoprazole 40 mg EC Tab PO SCH (10:48)
[2018-08-14] MEDS: (Lantus) Insulin Glargine, Recombinant SC SCH ×2 (10:51→21:25)
[2018-08-14] MEDS: guaiFENesin DM 100 mg-10 mg/5 ml UD PO PRN (10:52)
[2018-08-14] MEDS: Meropenem 1 GM in Sodium Chloride 0.9% 100 ML IVPB SCH (12:04)
--- NOTE | 2018-08-14 16:18 | CP.PCM.PN ---
<Adrian Tarango - Last Filed: 08/14/18 18:23> Subjective - Date & Time of Evaluation Date of Evaluation: 08/14/18 Time of Evaluation: 10:00 - Subjective Subjective: PGY-[address] Ragsdale service Patient is seen and examined at bedside. Patient states feeling well, shortness of breath on and off at times. currently wearing Nonrebreather mask @ 100% O2. Patient often uses Bipap when needed. As per nurse, patient refused bipap the night before. Patient is eating well, and normal bowel movement, no urinary comp laints. Patient is not ambulating due to weakness of lower extremities. denies fever, chills, chest pain, SOB, n/v/d/c or urinary symptoms. Objective - Vital Signs/Intake and Output Vital Signs (last 24 hours): Temp Pulse Resp BP Pulse Ox 98.4 F 92 H 20 137/84 98 08/14/18 08:38 08/14/18 15:32 08/14/18 08:38 08/14/18 08:38 08/14/18 08:38 Intake and Output: 08/14/18 08/14/18 06:59 18:59 Intake Total 500 Output Total 600 Balance -100 - Medications Medications: Current Medications Acetaminophen (Tylenol 325mg Tab) 650 mg PO Q6 PRN PRN Reason: Pain, Mild (1-3) Last Admin: 08/01/18 08:07 Dose: 650 mg Albuterol/Ipratropium (Duoneb 3 Mg/0.5 Mg (3 Ml) Ud) 3 ml INH RQ6 PRN PRN Reason: Shortness of Breath Albuterol/Ipratropium (Duoneb 3 Mg/0.5 Mg (3 Ml) Ud) 3 ml INH RQ4 [facility] Last Admin: 08/14/18 15:20 Dose: 3 ml Dextrose (Dextrose 50% Inj) 0 ml IV STAT PRN; Protocol PRN Reason: Hypoglycemia Protocol Dextrose (Glutose 15) 0 gm PO ONCE PRN; Protocol PRN Reason: Hypoglycemia Protocol Glucagon (Glucagen Diagnostic Kit) 0 mg IM STAT PRN; Protocol PRN Reason: Hypoglycemia Protocol Guaifenesin/Dextromethorphan (Robitussin Dm) 5 ml PO Q4H PRN PRN Reason: Cough Last Admin: 08/14/18 10:52 Dose: 5 ml Heparin Sodium (Porcine) (Heparin) 5,000 units SC Q12 [facility] Last Admin: 08/14/18 10:31 Dose: 5,000 units Meropenem 1 gm/ Sodium (Chloride) 100 mls @ 100 mls/hr IVPB Q8H [facility]; Protocol Last Admin: 08/14/18 12:04 Dose: 100 mls/hr Ibuprofen (Motrin Tab) 600 mg PO TID PRN PRN Reason: Pain, moderate (4-7) Last Admin: 08/13/18 21:56 Dose: 600 mg Insulin Aspart (Novolog) 12 unit SC ACTID [facility] Last Admin: 08/14/18 12:02 Dose: 12 units Insulin Glargine (Lantus) 30 unit SC Q12 [facility] Last Admin: 08/14/18 10:51 Dose: 30 units Insulin Human Regular (Novolin R) 0 unit SC ACHS [facility]; Protocol Last Admin: 08/14/18 12:02 Dose: 4 units Methylprednisolone (Solu-Medrol) 40 mg IV Q6H [facility] Multivitamins (Hexavitamin) 1 tab PO DAILY [facility] Last Admin: 08/14/18 10:48 Dose: 1 tab Mycophenolate Mofetil (Cellcept) 500 mg PO BID [facility] Last Admin: 08/14/18 10:48 Dose: 500 mg Pantoprazole Sodium (Protonix Ec Tab) 40 mg PO DAILY [facility] Last Admin: 08/14/18 10:48 Dose: 40 mg Tramadol HCl (Ultram) 25 mg PO TID PRN PRN Reason: Pain, severe (8-10) Last Admin: 08/10/18 21:57 Dose: 25 mg Zolpidem Tartrate (Ambien) 5 mg PO HS PRN PRN Reason: Insomnia Last Admin: 08/13/18 21:57 Dose: 5 mg - Labs Labs: 08/13/18 06:53 08/13/18 06:53 PT 12.6 SECONDS (9.7-12.2) H 07/27/18 07:05 INR 1.2 07/27/18 07:05 APTT 30 SECONDS (21-34) 07/27/18 07:05 - Constitutional Appears: Non-toxic, No Acute Distress, Chronically Ill - Head Exam Head Exam: ATRAUMATIC, NORMAL INSPECTION, NORMOCEPHALIC - Eye Exam Eye Exam: EOMI, Normal appearance - ENT Exam ENT Exam: Mucous Membranes Moist, Normal Exam - Neck Exam Neck Exam: Normal Inspection - Respiratory Exam Respiratory Exam: Rales (b/l middle and lower lobes). absent: Wheezes, Respiratory Distress - Cardiovascular Exam Cardiovascular Exam: Tachycardia, REGULAR RHYTHM, +S1, +S2 - GI/Abdominal Exam GI & Abdominal Exam: Soft, Normal Bowel Sounds. absent: Distended, Guarding, Tenderness - Extremities Exam Extremities Exam: Full ROM, Normal Inspection. absent: Calf Tenderness, Pedal Edema, Tenderness - Neurological Exam Neurological Exam: Alert, Awake, Oriented x3. absent: Normal Gait - Psychiatric Exam Psychiatric exam: Normal Affect, Normal Mood - Skin Skin Exam: Dry, Intact, Normal Color, Warm Assessment and Plan - Assessment and Plan (Free Text) Plan: Interstitial pulmonary fibrosis - patient has history of tobacco use and environmental exposure from work - Venti mask at 50% - Bipap only at night time - f/u labs Q3 days - Duoneb Q4H [facility] - albuterol Q6hr PRN - Tapering steroid - Solumedrol 40 mg IVP Q6H today - will be changed to 40mg IVP TID tomorrow - Robitussin DM 5 mL PO Q4H PRN - Meropenem 1 g Q8H - d/c as per Dr Ritter - Mycophenolate mofetil 500mg PO BID - Pulmonology recs (Dr. Vera) - leg weakness most likely due to steroid use, taper steroid, encourage ambulation, PT, follow up chest xray - f/u further ID recs (Dr. Ritter) Pre-diabetes mellitus, chronic - A1c 5.5 - elevated glucose levels on accuchecks - 2/2 to steroid use - Novolog 12U actid - Glargine 30U hs - ISS high dose ACHS - accuchecks ACHS - hypoglycemic protocol Insomnia, resolved - Ambien 5mg PO HS PRN for insomnia PPx, Diet, Disposition - DVT ppx: heparin 5000 q12 - GI ppx: protonix 40 mg PO daily - pain control with tylenol (mild pain), ibuprofen (moderate pain), Ultram (severe pain) - Diet: dietary supplements: Ensure Enlive TID, MV daily, HHD - palliative care consult - PT continues to take patient out of bed, [facility] Patient is given muscle strengthening exercises in bed. Will continue to follow up with PT Plan discussed with Dr Jn Tarango, PGY-1 <Aj Ragsdale - Last Filed: 08/15/18 20:59> Objective - Vital Signs/Intake and Output Vital Signs (last 24 hours): Temp Pulse Resp BP Pulse Ox 97.9 F 110 H 20 137/89 100 08/15/18 16:40 08/15/18 16:40 08/15/18 16:40 08/15/18 16:40 08/15/18 16:40 Intake and Output: 08/15/18 08/16/18 18:59 06:59 Intake Total 710 Output Total 1350 Balance -640 - Medications Medications: Current Medications Acetaminophen (Tylenol 325mg Tab) 650 mg PO Q6 PRN PRN Reason: Pain, Mild (1-3) Last Admin: 08/01/18 08:07 Dose: 650 mg Albuterol Sulfate (Albuterol 0.083% Inhal Stephany (2.5 Mg/3 Ml) Ud) 2.5 mg INH RQ6 PRN PRN Reason: Shortness of Breath Albuterol/Ipratropium (Duoneb 3 Mg/0.5 Mg (3 Ml) Ud) 3 ml INH RQ4 [facility] Last Admin: 08/15/18 19:34 Dose: 3 ml Dextrose (Dextrose 50% Inj) 0 ml IV STAT PRN; Protocol PRN Reason: Hypoglycemia Protocol Dextrose (Glutose 15) 0 gm PO ONCE PRN; Protocol PRN Reason: Hypoglycemia Protocol Glucagon (Glucagen Diagnostic Kit) 0 mg IM STAT PRN; Protocol PRN Reason: Hypoglycemia Protocol Guaifenesin/Dextromethorphan (Robitussin Dm) 5 ml PO Q4H PRN PRN Reason: Cough Last Admin: 08/15/18 09:53 Dose: 5 ml Heparin Sodium (Porcine) (Heparin) 5,000 units SC Q12 [facility] Last Admin: 08/15/18 09:53 Dose: 5,000 units Ibuprofen (Motrin Tab) 600 mg PO TID PRN PRN Reason: Pain, moderate (4-7) Last Admin: 08/14/18 21:36 Dose: 600 mg Insulin Aspart (Novolog) 12 unit SC ACTID [facility] Last Admin: 08/15/18 16:38 Dose: Not Given Insulin Glargine (Lantus) 30 unit SC Q12 [facility] Last Admin: 08/15/18 09:53 Dose: 30 units Insulin Human Regular (Novolin R) 0 unit SC ACHS [facility]; Protocol Last Admin: 08/15/18 16:38 Dose: Not Given Methylprednisolone (Solu-Medrol) 40 mg IV Q6H [facility] Last Admin: 08/15/18 16:38 Dose: 40 mg Multivitamins (Hexavitamin) 1 tab PO DAILY [facility] Last Admin: 08/15/18 09:53 Dose: 1 tab Mycophenolate Mofetil (Cellcept) 500 mg PO BID [facility] Last Admin: 08/15/18 17:43 Dose: 500 mg Pantoprazole Sodium (Protonix Ec Tab) 40 mg PO DAILY [facility] Last Admin: 08/15/18 09:53 Dose: 40 mg Tramadol HCl (Ultram) 25 mg PO TID PRN PRN Reason: Pain, severe (8-10) Last Admin: 08/10/18 21:57 Dose: 25 mg Zolpidem Tartrate (Ambien) 5 mg PO HS PRN PRN Reason: Insomnia Last Admin: 08/14/18 21:37 Dose: 5 mg - Labs Labs: 08/13/18 06:53 08/13/18 06:53 PT 12.6 SECONDS (9.7-12.2) H 07/27/18 07:05 INR 1.2 07/27/18 07:05 APTT 30 SECONDS (21-34) 07/27/18 07:05 Attending/Attestation - Attestation I have personally seen and examined this patient.: Yes I have fully participated in the care of the patient.: Yes I have reviewed all pertinent clinical information, including history, physical exam and plan: Yes Notes (Text): seen and examined ,no changes reduce steroid dose,stop Merrem continue to monitor sugar
[2018-08-14] MEDS ORDERED: Albuterol 0.083% Inhal Sol (2.5 mg/3 mL) UD INH PRN (16:19)
[2018-08-14] MEDS: MethylPREDNISolone 40 mg Vial IV SCH ×2 (16:33→21:37)
[2018-08-15] MEDS: Albuterol-Ipratrop 3 mg / 0.5 (3 ml) UD INH SCH ×6 (00:10→19:34)
--- NOTE | 2018-08-15 00:31 | CP.PCM.PN ---
<Clement Alejandro - Last Filed: 08/15/18 00:28> Subjective - Date & Time of Evaluation Date of Evaluation: 08/15/18 Time of Evaluation: 00:28 - Subjective Subjective: PGY-[address] Ragsdale Patient is seen and examined at bedside. Patient states feeling well, occasional shortness of breath but appears breathing comfortably in bed. Patient using Bipap when needed. Patient is eating well, and normal bowel movement, no urinary complaints. Patient is not ambulating due to weakness of lower extremities. denies fever, chills, chest pain, SOB, n/v/d/c or urinary symptoms. Objective - Vital Signs/Intake and Output Vital Signs (last 24 hours): Temp Pulse Resp BP Pulse Ox 97.9 F 120 H 20 133/82 100 08/14/18 23:59 08/14/18 23:59 08/14/18 23:59 08/14/18 23:59 08/14/18 23:59 Intake and Output: 08/14/18 08/15/18 18:59 06:59 Intake Total 500 Output Total 800 Balance -300 - Medications Medications: Current Medications Acetaminophen (Tylenol 325mg Tab) 650 mg PO Q6 PRN PRN Reason: Pain, Mild (1-3) Last Admin: 08/01/18 08:07 Dose: 650 mg Albuterol Sulfate (Albuterol 0.083% Inhal Stephany (2.5 Mg/3 Ml) Ud) 2.5 mg INH RQ6 PRN PRN Reason: Shortness of Breath Albuterol/Ipratropium (Duoneb 3 Mg/0.5 Mg (3 Ml) Ud) 3 ml INH RQ4 [facility] Last Admin: 08/14/18 19:29 Dose: 3 ml Dextrose (Dextrose 50% Inj) 0 ml IV STAT PRN; Protocol PRN Reason: Hypoglycemia Protocol Dextrose (Glutose 15) 0 gm PO ONCE PRN; Protocol PRN Reason: Hypoglycemia Protocol Glucagon (Glucagen Diagnostic Kit) 0 mg IM STAT PRN; Protocol PRN Reason: Hypoglycemia Protocol Guaifenesin/Dextromethorphan (Robitussin Dm) 5 ml PO Q4H PRN PRN Reason: Cough Last Admin: 08/14/18 10:52 Dose: 5 ml Heparin Sodium (Porcine) (Heparin) 5,000 units SC Q12 [facility] Last Admin: 08/14/18 21:37 Dose: 5,000 units Ibuprofen (Motrin Tab) 600 mg PO TID PRN PRN Reason: Pain, moderate (4-7) Last Admin: 08/14/18 21:36 Dose: 600 mg Insulin Aspart (Novolog) 12 unit SC ACTID [facility] Last Admin: 08/14/18 17:47 Dose: 12 units Insulin Glargine (Lantus) 30 unit SC Q12 [facility] Last Admin: 08/14/18 21:25 Dose: Not Given Insulin Human Regular (Novolin R) 0 unit SC ACHS [facility]; Protocol Last Admin: 08/14/18 21:22 Dose: Not Given Methylprednisolone (Solu-Medrol) 40 mg IV Q6H [facility] Last Admin: 08/14/18 21:37 Dose: 40 mg Multivitamins (Hexavitamin) 1 tab PO DAILY [facility] Last Admin: 08/14/18 10:48 Dose: 1 tab Mycophenolate Mofetil (Cellcept) 500 mg PO BID [facility] Last Admin: 08/14/18 17:47 Dose: 500 mg Pantoprazole Sodium (Protonix Ec Tab) 40 mg PO DAILY [facility] Last Admin: 08/14/18 10:48 Dose: 40 mg Tramadol HCl (Ultram) 25 mg PO TID PRN PRN Reason: Pain, severe (8-10) Last Admin: 08/10/18 21:57 Dose: 25 mg Zolpidem Tartrate (Ambien) 5 mg PO HS PRN PRN Reason: Insomnia Last Admin: 08/14/18 21:37 Dose: 5 mg - Labs Labs: 08/13/18 06:53 08/13/18 06:53 PT 12.6 SECONDS (9.7-12.2) H 07/27/18 07:05 INR 1.2 07/27/18 07:05 APTT 30 SECONDS (21-34) 07/27/18 07:05 - Constitutional Appears: Non-toxic, No Acute Distress - Head Exam Head Exam: ATRAUMATIC, NORMAL INSPECTION - Eye Exam Eye Exam: EOMI - ENT Exam ENT Exam: Mucous Membranes Moist - Respiratory Exam Respiratory Exam: Clear to Ausculation Bilateral, NORMAL BREATHING PATTERN. a bsent: Rhonchi, Wheezes - Cardiovascular Exam Cardiovascular Exam: REGULAR RHYTHM, +S1, +S2 - GI/Abdominal Exam GI & Abdominal Exam: Soft, Normal Bowel Sounds. absent: Tenderness - Extremities Exam Extremities Exam: absent: Pedal Edema, Tenderness - Neurological Exam Neurological Exam: Alert, Awake, Oriented x3 - Psychiatric Exam Psychiatric exam: Normal Affect, Normal Mood - Skin Skin Exam: Dry, Intact Assessment and Plan - Assessment and Plan (Free Text) Assessment: Interstitial pulmonary fibrosis - patient has history of tobacco use and environmental exposure from work - Venti mask at 50% - Bipap only at night time - f/u labs Q3 days - Duoneb Q4H [facility] - albuterol Q6hr PRN - Tapering steroid - Solumedrol 40 mg IVP Q6H changed to 40mg IVP TID - Robitussin DM 5 mL PO Q4H PRN - Meropenem 1 g Q8H - d/c as per Dr Ritter - Mycophenolate mofetil 500mg PO BID - Pulmonology recs (Dr. Vera) - leg weakness most likely due to steroid use, taper steroid, encourage ambulation, PT, follow up chest xray - f/u further ID recs (Dr. Rtiter) Pre-diabetes mellitus, chronic - A1c 5.5 - elevated glucose levels on accuchecks - 2/2 to steroid use - Novolog 12U actid - Glargine 30U hs - ISS high dose ACHS - accuchecks ACHS - hypoglycemic protocol Insomnia, resolved - Ambien 5mg PO HS PRN for insomnia PPx, Diet, Disposition - DVT ppx: heparin 5000 q12 - GI ppx: protonix 40 mg PO daily - pain control with tylenol (mild pain), ibuprofen (moderate pain), Ultram (severe pain) - Diet: dietary supplements: Ensure Enlive TID, MV daily, HHD - palliative care consult - PT continues to take patient out of bed, patient desat when moving from bed to comode. Patient is given muscle strengthening exercises in bed. Will continue to follow up with PT Plan discussed with Dr Jn Alejandro, PGY-1 <Aj Ragsdale - Last Filed: 08/15/18 20:58> Objective - Vital Signs/Intake and Output Vital Signs (last 24 hours): Temp Pulse Resp BP Pulse Ox 97.9 F 110 H 20 137/89 100 08/15/18 16:40 08/15/18 16:40 08/15/18 16:40 08/15/18 16:40 08/15/18 16:40 Intake and Output: 08/15/18 08/16/18 18:59 06:59 Intake Total 710 Output Total 1350 Balance -640 - Medications Medications: Current Medications Acetaminophen (Tylenol 325mg Tab) 650 mg PO Q6 PRN PRN Reason: Pain, Mild (1-3) Last Admin: 08/01/18 08:07 Dose: 650 mg Albuterol Sulfate (Albuterol 0.083% Inhal Stephany (2.5 Mg/3 Ml) Ud) 2.5 mg INH RQ6 PRN PRN Reason: Shortness of Breath Albuterol/Ipratropium (Duoneb 3 Mg/0.5 Mg (3 Ml) Ud) 3 ml INH RQ4 [facility] Last Admin: 08/15/18 19:34 Dose: 3 ml Dextrose (Dextrose 50% Inj) 0 ml IV STAT PRN; Protocol PRN Reason: Hypoglycemia Protocol Dextrose (Glutose 15) 0 gm PO ONCE PRN; Protocol PRN Reason: Hypoglycemia Protocol Glucagon (Glucagen Diagnostic Kit) 0 mg IM STAT PRN; Protocol PRN Reason: Hypoglycemia Protocol Guaifenesin/Dextromethorphan (Robitussin Dm) 5 ml PO Q4H PRN PRN Reason: Cough Last Admin: 08/15/18 09:53 Dose: 5 ml Heparin Sodium (Porcine) (Heparin) 5,000 units SC Q12 [facility] Last Admin: 08/15/18 09:53 Dose: 5,000 units Ibuprofen (Motrin Tab) 600 mg PO TID PRN PRN Reason: Pain, moderate (4-7) Last Admin: 08/14/18 21:36 Dose: 600 mg Insulin Aspart (Novolog) 12 unit SC ACTID [facility] Last Admin: 08/15/18 16:38 Dose: Not Given Insulin Glargine (Lantus) 30 unit SC Q12 [facility] Last Admin: 08/15/18 09:53 Dose: 30 units Insulin Human Regular (Novolin R) 0 unit SC ACHS [facility]; Protocol Last Admin: 08/15/18 16:38 Dose: Not Given Methylprednisolone (Solu-Medrol) 40 mg IV Q6H [facility] Last Admin: 08/15/18 16:38 Dose: 40 mg Multivitamins (Hexavitamin) 1 tab PO DAILY [facility] Last Admin: 08/15/18 09:53 Dose: 1 tab Mycophenolate Mofetil (Cellcept) 500 mg PO BID [facility] Last Admin: 08/15/18 17:43 Dose: 500 mg Pantoprazole Sodium (Protonix Ec Tab) 40 mg PO DAILY [facility] Last Admin: 08/15/18 09:53 Dose: 40 mg Tramadol HCl (Ultram) 25 mg PO TID PRN PRN Reason: Pain, severe (8-10) Last Admin: 08/10/18 21:57 Dose: 25 mg Zolpidem Tartrate (Ambien) 5 mg PO HS PRN PRN Reason: Insomnia Last Admin: 08/14/18 21:37 Dose: 5 mg - Labs Labs: 08/13/18 06:53 08/13/18 06:53 PT 12.6 SECONDS (9.7-12.2) H 07/27/18 07:05 INR 1.2 07/27/18 07:05 APTT 30 SECONDS (21-34) 07/27/18 07:05 Attending/Attestation - Attestation I have personally seen and examined this patient.: Yes I have fully participated in the care of the patient.: Yes I have reviewed all pertinent clinical information, including history, physical exam and plan: Yes Notes (Text): Sleeping on bed,no changes,Has sob and hypoxic continue solu medrol and monitor sugar, severe pulmonary fibrosis on high dose of steroid .continue Mycophenolate off antibiotics as per Dr Ritter
[2018-08-15] MEDS: MethylPREDNISolone 40 mg Vial IV SCH ×4 (04:30→22:02)
[2018-08-15] MEDS: (Novolin R) Insulin Human Regular 100 units/ml vial SC SCH ×4 (08:10→21:59)
[2018-08-15] MEDS: (Novolog) Insulin Aspart, Recombinant 100 u/ml 10 ml vial SC SCH ×3 (08:10→16:38)
[2018-08-15] MEDS: guaiFENesin DM 100 mg-10 mg/5 ml UD PO PRN (09:53)
[2018-08-15] MEDS: (Lantus) Insulin Glargine, Recombinant SC SCH ×2 (09:53→21:58)
[2018-08-15] MEDS: Multiple Vitamins Tab PO SCH (09:53)
[2018-08-15] MEDS: Pantoprazole 40 mg EC Tab PO SCH (09:53)
[2018-08-16] MEDS: Albuterol-Ipratrop 3 mg / 0.5 (3 ml) UD INH SCH ×5 (00:31→16:14)
--- NOTE | 2018-08-16 00:50 | CP.PCM.PN ---
Subjective - Date & Time of Evaluation Date of Evaluation: 08/16/18 Time of Evaluation: 00:49 - Subjective Subjective: PGY-[address] Schneider Patient seen and examined at bedside. No acute events overnight. Patient appears to be resting comfortably on NRB mask. He denies shortness of breath at rest with NRB. No other complaints. Objective - Vital Signs/Intake and Output Vital Signs (last 24 hours): Temp Pulse Resp BP Pulse Ox 98 F 121 H 20 138/90 100 08/15/18 23:33 08/15/18 23:33 08/15/18 23:33 08/15/18 23:33 08/15/18 23:33 Intake and Output: 08/15/18 08/16/18 18:59 06:59 Intake Total 710 450 Output Total 1350 Balance -640 450 - Medications Medications: Current Medications Acetaminophen (Tylenol 325mg Tab) 650 mg PO Q6 PRN PRN Reason: Pain, Mild (1-3) Last Admin: 08/01/18 08:07 Dose: 650 mg Albuterol Sulfate (Albuterol 0.083% Inhal Stephany (2.5 Mg/3 Ml) Ud) 2.5 mg INH RQ6 PRN PRN Reason: Shortness of Breath Albuterol/Ipratropium (Duoneb 3 Mg/0.5 Mg (3 Ml) Ud) 3 ml INH RQ4 [facility] Last Admin: 08/16/18 00:31 Dose: 3 ml Dextrose (Dextrose 50% Inj) 0 ml IV STAT PRN; Protocol PRN Reason: Hypoglycemia Protocol Dextrose (Glutose 15) 0 gm PO ONCE PRN; Protocol PRN Reason: Hypoglycemia Protocol Glucagon (Glucagen Diagnostic Kit) 0 mg IM STAT PRN; Protocol PRN Reason: Hypoglycemia Protocol Guaifenesin/Dextromethorphan (Robitussin Dm) 5 ml PO Q4H PRN PRN Reason: Cough Last Admin: 08/15/18 09:53 Dose: 5 ml Heparin Sodium (Porcine) (Heparin) 5,000 units SC Q12 [facility] Last Admin: 08/15/18 21:57 Dose: 5,000 units Ibuprofen (Motrin Tab) 600 mg PO TID PRN PRN Reason: Pain, moderate (4-7) Last Admin: 08/14/18 21:36 Dose: 600 mg Insulin Aspart (Novolog) 12 unit SC ACTID [facility] Last Admin: 08/15/18 16:38 Dose: Not Given Insulin Glargine (Lantus) 30 unit SC Q12 [facility] Last Admin: 08/15/18 21:58 Dose: 30 units Insulin Human Regular (Novolin R) 0 unit SC ACHS [facility]; Protocol Last Admin: 08/15/18 21:59 Dose: 3 units Methylprednisolone (Solu-Medrol) 40 mg IV Q6H [facility] Last Admin: 08/15/18 22:02 Dose: 40 mg Multivitamins (Hexavitamin) 1 tab PO DAILY [facility] Last Admin: 08/15/18 09:53 Dose: 1 tab Mycophenolate Mofetil (Cellcept) 500 mg PO BID [facility] Last Admin: 08/15/18 17:43 Dose: 500 mg Pantoprazole Sodium (Protonix Ec Tab) 40 mg PO DAILY [facility] Last Admin: 08/15/18 09:53 Dose: 40 mg Tramadol HCl (Ultram) 25 mg PO TID PRN PRN Reason: Pain, severe (8-10) Last Admin: 08/10/18 21:57 Dose: 25 mg Zolpidem Tartrate (Ambien) 5 mg PO HS PRN PRN Reason: Insomnia Last Admin: 08/15/18 21:56 Dose: 5 mg - Labs Labs: 08/13/18 06:53 08/13/18 06:53 PT 12.6 SECONDS (9.7-12.2) H 07/27/18 07:05 INR 1.2 07/27/18 07:05 APTT 30 SECONDS (21-34) 07/27/18 07:05 - Constitutional Appears: Non-toxic, No Acute Distress - Head Exam Head Exam: ATRAUMATIC, NORMAL INSPECTION - Eye Exam Eye Exam: EOMI, Normal appearance - ENT Exam ENT Exam: Mucous Membranes Moist - Respiratory Exam Respiratory Exam: Decreased Breath Sounds. absent: Accessory Muscle Use, Stridor Additional comments: On NRB - Cardiovascular Exam Cardiovascular Exam: REGULAR RHYTHM, +S1, +S2 - GI/Abdominal Exam GI & Abdominal Exam: Soft, Normal Bowel Sounds. absent: Tenderness - Extremities Exam Extremities Exam: absent: Pedal Edema, Tenderness - Neurological Exam Neurological Exam: Alert, Awake Neuro motor strength exam: Left Upper Extremity: 0, Right Upper Extremity: 0, Left Lower Extremity: 0, Right Lower Extremity: 0 - Psychiatric Exam Psychiatric exam: Normal Affect, Normal Mood - Skin Skin Exam: Dry, Intact Assessment and Plan - Assessment and Plan (Free Text) Assessment: Interstitial pulmonary fibrosis - patient has history of tobacco use and environmental exposure from work - Venti mask at 50% - Bipap only at night time - f/u labs Q3 days - Duoneb Q4H [facility] - albuterol Q6hr PRN - Tapering steroid - Solumedrol 40 mg IVP Q6H changed to 40mg IVP TID - Robitussin DM 5 mL PO Q4H PRN - Meropenem 1 g Q8H - d/c as per Dr Ritter - Mycophenolate mofetil 500mg PO BID - Pulmonology recs (Dr. Vera) - leg weakness most likely due to steroid use, taper steroid, encourage ambulation, PT, follow up chest xray - f/u further ID recs (Dr. Ritter) Pre-diabetes mellitus, chronic - A1c 5.5 - elevated glucose levels on accuchecks - 2/2 to steroid use - Novolog 12U actid - Glargine 30U hs - ISS high dose ACHS - accuchecks ACHS - hypoglycemic protocol Insomnia, resolved - Ambien 5mg PO HS PRN for insomnia PPx, Diet, Disposition - DVT ppx: heparin 5000 q12 - GI ppx: protonix 40 mg PO daily - pain control with tylenol (mild pain), ibuprofen (moderate pain), Ultram (severe pain) - Diet: dietary supplements: Ensure Enlive TID, MV daily, HHD - palliative care consult - PT continues to take patient out of bed, patient desat when moving from bed to comode. Patient is given muscle strengthening exercises in bed. Will continue to follow up with PT Plan discussed with Dr Jn Alejandro, PGY-1
[2018-08-16] MEDS: MethylPREDNISolone 40 mg Vial IV SCH ×4 (03:26→23:59)
[2018-08-16] MEDS: (Novolin R) Insulin Human Regular 100 units/ml vial SC SCH ×4 (07:31→21:44)
[2018-08-16] MEDS: (Novolog) Insulin Aspart, Recombinant 100 u/ml 10 ml vial SC SCH ×3 (07:32→16:51)
[2018-08-16] MEDS: (Lantus) Insulin Glargine, Recombinant SC SCH ×2 (09:17→21:43)
[2018-08-16] MEDS: Multiple Vitamins Tab PO SCH (09:18)
[2018-08-16] MEDS: Pantoprazole 40 mg EC Tab PO SCH (09:18)
[2018-08-16] MEDS: guaiFENesin DM 100 mg-10 mg/5 ml UD PO PRN (09:18)
[2018-08-16 09:42] LABS: BASO % 0.3 % (0.0-2.0); HEMOGLOBIN 12.7 g/dL (12.0-18.0); LYMPH # 0.5 K/uL (1.0-4.3); LYMPH % 6.1 % (20.0-40.0); MEAN CELL VOLUME 95.3 fL (80.0-94.0); MEAN CORPUSCULAR HEMOGLOBIN 31.5 pg (27.0-31.0); MEAN CORPUSCULAR HGB CONC 33.1 g/dL (33.0-37.0); MEAN PLATELET VOLUME 8.9 fL (7.2-11.7); MONO # 0.3 K/uL (0.0-0.8); MONO % 3.1 % (0.0-10.0); NEUT # 7.6 K/uL (1.8-7.0); NEUT % 90.5 % (50.0-75.0); NRBC % 0.1 % (0.0-2.0); PLATELET COUNT 125 K/uL (130-400); RBC 4.04 Mil/uL (4.40-5.90); RED CELL DISTRIBUTION WIDTH 16.2 % (11.5-14.5); WHITE BLOOD COUNT 8.5 K/uL (4.8-10.8)
[2018-08-16 10:42] LABS: ALB/GLOB RATIO 1.1 (1.0-2.1); ALT/SGPT 35 U/L (21-72); AST/SGOT 24 U/L (17-59); BLOOD UREA NITROGEN 29 mg/dL (9-20); CALCIUM 8.2 mg/dl (8.6-10.4); GFR NON-AFRICAN AMERICAN > 60
[2018-08-16 10:49] LABS: BANDS 11 % (0-2); LYMPHOCYTE 4 % (20-40); NEUTROPHIL 83 % (50-75); PLATELET ESTIMATE SLIGHTLY DECREASED (NORMAL); REACTIVE LYMPHOCYTES 2 % (0-0); TOTAL CELLS COUNTED 100
[2018-08-16 10:50] LABS: ANISOCYTOSIS SLIGHT; STOMATOCYTES MODERATE
[2018-08-16] MEDS ORDERED: MethylPREDNISolone 40 mg Vial IV SCH (21:00)
[2018-08-17] MEDS: (Novolog) Insulin Aspart, Recombinant 100 u/ml 10 ml vial SC SCH ×3 (07:53→16:54)
[2018-08-17] MEDS: (Novolin R) Insulin Human Regular 100 units/ml vial SC SCH ×4 (07:53→21:29)
[2018-08-17] MEDS: MethylPREDNISolone 40 mg Vial IV SCH ×3 (07:54→23:33)
--- NOTE | 2018-08-17 10:24 | CP.PCM.PN ---
Subjective - Date & Time of Evaluation Date of Evaluation: 08/17/18 Time of Evaluation: 10:57 - Subjective Subjective: PGY-[address] Wellington service Patient is seen and examined at bedside. Patient states feeling well today. no acute events overnight. Patient says he continues to have on and off shortness of breath, on non rebreather mask. Patient states he uses bipap at nights. Denies any complains, continues to eat regularly, and having normal bowel movements. Denies fever, chills, chest pain, palpitations, abdominal pain, n/v/d/c. Objective - Vital Signs/Intake and Output Vital Signs (last 24 hours): Temp Pulse Resp BP Pulse Ox 97.9 F 100 H 20 147/99 H 100 08/17/18 07:00 08/17/18 07:00 08/17/18 07:00 08/17/18 07:00 08/17/18 07:00 Intake and Output: 08/17/18 08/17/18 06:59 18:59 Intake Total 450 Output Total 600 Balance -150 - Medications Medications: Current Medications Acetaminophen (Tylenol 325mg Tab) 650 mg PO Q6 PRN PRN Reason: Pain, Mild (1-3) Last Admin: 08/01/18 08:07 Dose: 650 mg Albuterol Sulfate (Albuterol 0.083% Inhal Stephany (2.5 Mg/3 Ml) Ud) 2.5 mg INH RQ6 PRN PRN Reason: Shortness of Breath Dextrose (Dextrose 50% Inj) 0 ml IV STAT PRN; Protocol PRN Reason: Hypoglycemia Protocol Dextrose (Glutose 15) 0 gm PO ONCE PRN; Protocol PRN Reason: Hypoglycemia Protocol Glucagon (Glucagen Diagnostic Kit) 0 mg IM STAT PRN; Protocol PRN Reason: Hypoglycemia Protocol Guaifenesin/Dextromethorphan (Robitussin Dm) 5 ml PO Q4H PRN PRN Reason: Cough Last Admin: 08/16/18 09:18 Dose: 5 ml Ibuprofen (Motrin Tab) 600 mg PO TID PRN PRN Reason: Pain, moderate (4-7) Last Admin: 08/14/18 21:36 Dose: 600 mg Insulin Aspart (Novolog) 12 unit SC ACTID [facility] Last Admin: 08/17/18 07:53 Dose: 12 units Insulin Glargine (Lantus) 30 unit SC Q12 [facility] Last Admin: 08/16/18 21:43 Dose: 30 units Insulin Human Regular (Novolin R) 0 unit SC ACHS [facility]; Protocol Last Admin: 08/17/18 07:53 Dose: 2 units Methylprednisolone (Solu-Medrol) 40 mg IV Q8H [facility] Last Admin: 08/17/18 07:54 Dose: 40 mg Multivitamins (Hexavitamin) 1 tab PO DAILY [facility] Last Admin: 08/16/18 09:18 Dose: 1 tab Mycophenolate Mofetil (Cellcept) 500 mg PO BID [facility] Last Admin: 08/16/18 17:38 Dose: 500 mg Pantoprazole Sodium (Protonix Ec Tab) 40 mg PO DAILY [facility] Last Admin: 08/16/18 09:18 Dose: 40 mg Tramadol HCl (Ultram) 25 mg PO TID PRN PRN Reason: Pain, severe (8-10) Last Admin: 08/10/18 21:57 Dose: 25 mg Zolpidem Tartrate (Ambien) 5 mg PO HS PRN PRN Reason: Insomnia Last Admin: 08/16/18 21:44 Dose: 5 mg - Labs Labs: 08/16/18 09:31 08/16/18 09:31 PT 12.6 SECONDS (9.7-12.2) H 07/27/18 07:05 INR 1.2 07/27/18 07:05 APTT 30 SECONDS (21-34) 07/27/18 07:05 - Constitutional Appears: Non-toxic, No Acute Distress - Head Exam Head Exam: ATRAUMATIC, NORMAL INSPECTION, NORMOCEPHALIC - Eye Exam Eye Exam: EOMI, Normal appearance - ENT Exam ENT Exam: Mucous Membranes Moist, Normal Exam - Neck Exam Neck Exam: Full ROM, Normal Inspection - Respiratory Exam Respiratory Exam: Accessory Muscle Use, Rales, NORMAL BREATHING PATTERN. absent: Chest Wall Tenderness, Clear to Ausculation Bilateral, Wheezes, Respiratory Distress - Cardiovascular Exam Cardiovascular Exam: Tachycardia, REGULAR RHYTHM, +S1, +S2 - GI/Abdominal Exam GI & Abdominal Exam: Soft, Normal Bowel Sounds. absent: Distended, Tenderness - Extremities Exam Extremities Exam: Full ROM, Normal Inspection. absent: Pedal Edema, Tenderness Additional comments: muscle wasting LE b/l - Back Exam Back Exam: Full ROM, NORMAL INSPECTION - Neurological Exam Neurological Exam: Alert, Awake, Oriented x3. absent: Normal Gait Neuro motor strength exam: Left Upper Extremity: 5, Right Upper Extremity: 5, Left Lower Extremity: 5, Right Lower Extremity: 5 - Psychiatric Exam Psychiatric exam: Normal Affect, Normal Mood - Skin Skin Exam: Dry, Intact, Normal Color, Warm Assessment and Plan - Assessment and Plan (Free Text) Plan: Interstitial pulmonary fibrosis - patient has history of tobacco use and environmental exposure from work - Venti mask at 50% - Bipap only at night time - f/u labs Q3 days - Duoneb Q4H [facility] - albuterol Q6hr PRN - Tapering steroid - Solumedrol 40mg IVP TID - Robitussin DM 5 mL PO Q4H PRN - Mycophenolate mofetil 500mg PO BID - Pulmonology recs (Dr. Vera) - repeat CXR, O2 sat evaluated. With non-rebreather mask in place, patient's saturation was 96-98%. When non-rebreather mask was removed and only NC in place, saturation was 90-92%. It was explained to patient that he does not require use of the non-rebreather mask at this time. Patient is to ween down use and eventually discontinue use of non-rebreather mask. Pre-diabetes mellitus, chronic - A1c 5.5 - elevated glucose levels on accuchecks - 2/2 to steroid use - Novolog 12U actid - Glargine 30U hs - ISS high dose ACHS - accuchecks ACHS - hypoglycemic protocol Insomnia, resolved - Ambien 5mg PO HS PRN for insomnia PPx, Diet, Disposition - DVT ppx: heparin 5000 q12 - GI ppx: protonix 40 mg PO daily - pain control with tylenol (mild pain), ibuprofen (moderate pain), Ultram (severe pain) - Diet: dietary supplements: Ensure Enlive TID, MV daily, HHD - palliative care consult - PT continues to take patient out of bed, patient desat when moving from bed to comode. Patient is given muscle strengthening exercises in bed. Will continue to follow up with PT Plan discussed with Dr Eliz Tarango, PGY-1
[2018-08-17] MEDS: Multiple Vitamins Tab PO SCH (10:53)
[2018-08-17] MEDS: Pantoprazole 40 mg EC Tab PO SCH (10:53)
[2018-08-17] MEDS: (Lantus) Insulin Glargine, Recombinant SC SCH ×2 (10:57→21:28)
--- NOTE | 2018-08-17 12:14 | RAD ---
Date of service: 08/17/2018 HISTORY: f/u COMPARISON: Comparison chest radiograph and CT chest dated 07/31/2018 and 07/08/2018 respectively.. FINDINGS: LUNGS: Diffuse bilateral interstitial fibrosis again noted. More confluent opacities in the lower lobes could be due to poor inspiration with low lung volumes crowded bronchovascular markings and concomitant atelectasis however lower lobe infiltrates not completely excluded. PLEURA: No significant pleural effusion identified, no pneumothorax apparent. CARDIOVASCULAR: Mild o aortic atherosclerotic calcification present. Heart remains mildly enlarged... No pulmonary vascular congestion. OSSEOUS STRUCTURES: No significant abnormalities. VISUALIZED UPPER ABDOMEN: Normal. OTHER FINDINGS: None. IMPRESSION: Diffuse bilateral interstitial fibrosis again noted. More confluent opacities in the lower lobes could be due to poor inspiration with low lung volumes crowded bronchovascular markings and concomitant atelectasis however lower lobe infiltrates not completely excluded.
--- NOTE | 2018-08-17 14:10 | CP.PCM.PN ---
Subjective - Date & Time of Evaluation Date of Evaluation: 08/17/18 Time of Evaluation: 11:00 - Subjective Subjective: Patient seen and examined at bedside this morning. Patient resting comfortably on bed in no acute distress. He admits to continued dyspnea and generalized weakness of his lower extremities. He does speak in full sentences without issue. Additionally, his appetite has improved today. Currently denies fever, chills, chest pain, hemoptysis, n/v. Exam: Gen: No acute distress. Cachectic. AAOx3. Card: RRRR, no murmurs, rubs, gallops Lungs: Diminished breath sounds bilaterally with bibasilar rales - on O2 by NC @4L continuous with intermittent use of non-rebreather A&P 1. Pulmonary Fibrosis - Repeat CXR 2. Chronic respiratory failure with hypoxia - O2 sat evaluated. With non-rebreather mask in place, patient's saturation was 96-98%. When non-rebreather mask was removed and only NC in place, saturation was 90-92%. It was explained to patient that he does not require use of the non- rebreather mask at this time. Patient is to ween down use and eventually discontinue use of non-rebreather mask. - Continue to monitor vitals Objective - Vital Signs/Intake and Output Vital Signs (last 24 hours): Temp Pulse Resp BP Pulse Ox 97.9 F 100 H 20 147/99 H 100 08/17/18 07:00 08/17/18 07:00 08/17/18 07:00 08/17/18 07:00 08/17/18 07:00 Intake and Output: 08/17/18 08/17/18 06:59 18:59 Intake Total 450 Output Total 600 300 Balance -150 -300 - Medications Medications: Current Medications Acetaminophen (Tylenol 325mg Tab) 650 mg PO Q6 PRN PRN Reason: Pain, Mild (1-3) Last Admin: 08/01/18 08:07 Dose: 650 mg Albuterol Sulfate (Albuterol 0.083% Inhal Stephany (2.5 Mg/3 Ml) Ud) 2.5 mg INH RQ6 PRN PRN Reason: Shortness of Breath Dextrose (Dextrose 50% Inj) 0 ml IV STAT PRN; Protocol PRN Reason: Hypoglycemia Protocol Dextrose (Glutose 15) 0 gm PO ONCE PRN; Protocol PRN Reason: Hypoglycemia Protocol Last Admin: 08/17/18 11:01 Dose: 15 gm Glucagon (Glucagen Diagnostic Kit) 0 mg IM STAT PRN; Protocol PRN Reason: Hypoglycemia Protocol Guaifenesin/Dextromethorphan (Robitussin Dm) 5 ml PO Q4H PRN PRN Reason: Cough Last Admin: 08/16/18 09:18 Dose: 5 ml Ibuprofen (Motrin Tab) 600 mg PO TID PRN PRN Reason: Pain, moderate (4-7) Last Admin: 08/14/18 21:36 Dose: 600 mg Insulin Aspart (Novolog) 12 unit SC ACTID [facility] Last Admin: 08/17/18 10:58 Dose: Not Given Insulin Glargine (Lantus) 30 unit SC Q12 [facility] Last Admin: 08/17/18 10:57 Dose: Not Given Insulin Human Regular (Novolin R) 0 unit SC ACHS [facility]; Protocol Last Admin: 08/17/18 10:58 Dose: Not Given Methylprednisolone (Solu-Medrol) 40 mg IV Q8H [facility] Last Admin: 08/17/18 07:54 Dose: 40 mg Multivitamins (Hexavitamin) 1 tab PO DAILY [facility] Last Admin: 08/17/18 10:53 Dose: 1 tab Mycophenolate Mofetil (Cellcept) 500 mg PO BID [facility] Last Admin: 08/17/18 10:53 Dose: 500 mg Pantoprazole Sodium (Protonix Ec Tab) 40 mg PO DAILY [facility] Last Admin: 08/17/18 10:53 Dose: 40 mg Tramadol HCl (Ultram) 25 mg PO TID PRN PRN Reason: Pain, severe (8-10) Last Admin: 08/10/18 21:57 Dose: 25 mg Zolpidem Tartrate (Ambien) 5 mg PO HS PRN PRN Reason: Insomnia Last Admin: 08/16/18 21:44 Dose: 5 mg - Labs Labs: 08/16/18 09:31 08/16/18 09:31 PT 12.6 SECONDS (9.7-12.2) H 07/27/18 07:05 INR 1.2 07/27/18 07:05 APTT 30 SECONDS (21-34) 07/27/18 07:05 Assessment and Plan (1) Pulmonary fibrosis Status: Acute (2) Chronic respiratory failure with hypoxia Status: Acute
--- NOTE | 2018-08-18 06:59 | CP.PCM.PN ---
<Adrian Tarango - Last Filed: 08/18/18 16:27> Subjective - Date & Time of Evaluation Date of Evaluation: 08/18/18 Time of Evaluation: 15:58 - Subjective Subjective: PGY-[address] David Wellington Patient is seen and examined at bedside. Patient states feeling well. Continues using nonrebreather mask on and off. states he continues having unchanged shortness of breath. Patient continues to feel weakness in both lower e xtremities. Patient feels hopeless, and ask for "high doses of anesthesia" to end his condition. Patient states that he is "waiting for a miracle", as he has seen people improve for serious sickness. Patient continues to eat regularly and having normal BM. PAtient denies fever, chills, chest pain, shortness of breath, nausea, vomiting, diarrhea, constipation, urinary symptoms. Objective - Vital Signs/Intake and Output Vital Signs (last 24 hours): Temp Pulse Resp BP Pulse Ox 98 F 113 H 20 113/81 98 08/17/18 23:29 08/17/18 23:29 08/17/18 23:29 08/17/18 23:29 08/17/18 23:29 Intake and Output: 08/17/18 08/18/18 18:59 06:59 Intake Total 400 300 Output Total 900 400 Balance -500 -100 - Medications Medications: Current Medications Acetaminophen (Tylenol 325mg Tab) 650 mg PO Q6 PRN PRN Reason: Pain, Mild (1-3) Last Admin: 08/01/18 08:07 Dose: 650 mg Albuterol Sulfate (Albuterol 0.083% Inhal Stephany (2.5 Mg/3 Ml) Ud) 2.5 mg INH RQ6 PRN PRN Reason: Shortness of Breath Dextrose (Dextrose 50% Inj) 0 ml IV STAT PRN; Protocol PRN Reason: Hypoglycemia Protocol Dextrose (Glutose 15) 0 gm PO ONCE PRN; Protocol PRN Reason: Hypoglycemia Protocol Last Admin: 08/17/18 11:01 Dose: 15 gm Glucagon (Glucagen Diagnostic Kit) 0 mg IM STAT PRN; Protocol PRN Reason: Hypoglycemia Protocol Guaifenesin/Dextromethorphan (Robitussin Dm) 5 ml PO Q4H PRN PRN Reason: Cough Last Admin: 08/16/18 09:18 Dose: 5 ml Ibuprofen (Motrin Tab) 600 mg PO TID PRN PRN Reason: Pain, moderate (4-7) Last Admin: 08/14/18 21:36 Dose: 600 mg Insulin Aspart (Novolog) 12 unit SC ACTID [facility] Last Admin: 08/17/18 16:54 Dose: 12 units Insulin Glargine (Lantus) 30 unit SC Q12 [facility] Last Admin: 08/17/18 21:28 Dose: Not Given Insulin Human Regular (Novolin R) 0 unit SC ACHS [facility]; Protocol Last Admin: 08/17/18 21:29 Dose: Not Given Methylprednisolone (Solu-Medrol) 40 mg IV Q8H [facility] Last Admin: 08/17/18 23:33 Dose: 40 mg Multivitamins (Hexavitamin) 1 tab PO DAILY [facility] Last Admin: 08/17/18 10:53 Dose: 1 tab Mycophenolate Mofetil (Cellcept) 500 mg PO BID [facility] Last Admin: 08/17/18 17:00 Dose: 500 mg Pantoprazole Sodium (Protonix Ec Tab) 40 mg PO DAILY [facility] Last Admin: 08/17/18 10:53 Dose: 40 mg Tramadol HCl (Ultram) 25 mg PO TID PRN PRN Reason: Pain, severe (8-10) Last Admin: 08/10/18 21:57 Dose: 25 mg Zolpidem Tartrate (Ambien) 5 mg PO HS PRN PRN Reason: Insomnia Last Admin: 08/17/18 21:29 Dose: 5 mg - Labs Labs: 08/16/18 09:31 08/16/18 09:31 PT 12.6 SECONDS (9.7-12.2) H 07/27/18 07:05 INR 1.2 07/27/18 07:05 APTT 30 SECONDS (21-34) 07/27/18 07:05 - Constitutional Appears: Non-toxic, No Acute Distress - Head Exam Head Exam: ATRAUMATIC, NORMAL INSPECTION, NORMOCEPHALIC - Eye Exam Eye Exam: EOMI, Normal appearance - ENT Exam ENT Exam: Mucous Membranes Moist, Normal Exam - Neck Exam Neck Exam: Full ROM, Normal Inspection - Respiratory Exam Respiratory Exam: Decreased Breath Sounds, Rales, NORMAL BREATHING PATTERN - Cardiovascular Exam Cardiovascular Exam: Tachycardia, REGULAR RHYTHM, +S1, +S2 - GI/Abdominal Exam GI & Abdominal Exam: Soft, Normal Bowel Sounds. absent: Distended, Tenderness - Extremities Exam Extremities Exam: absent: Full ROM, Pedal Edema, Tenderness Additional comments: muscle wasting b/l - Back Exam Back Exam: NORMAL INSPECTION - Neurological Exam Neurological Exam: Alert, Awake, Oriented x3 - Psychiatric Exam Psychiatric exam: Normal Affect, Normal Mood - Skin Skin Exam: Dry, Intact, Normal Color, Warm Assessment and Plan - Assessment and Plan (Free Text) Plan: Plan: Interstitial pulmonary fibrosis - patient has history of tobacco use and environmental exposure from work - nonrebreather mask @10 L - continue to wean off as per pulm recs - encourage NC - Bipap only at night time - f/u labs Q3 days - Duoneb Q4H [facility] - albuterol Q6hr PRN - Tapering steroid - Solumedrol 40mg IVP TID - Mycophenolate mofetil 500mg PO BID - D/C as per Pulm - Robitussin 5ml PO Q4H PRN for cough - Pulmonology recs (Dr. Vera) - Repeat CXR is relatively unchanged, showing interstitial fibrosis again, Discontinued Cellcept, continue to monitor oxygen saturation levels - Continue to ween off of non-rebreather mask, Patient is saturating well on NC and does not need non-rebreather Pre-diabetes mellitus, chronic - A1c 5.5 - Novolog 12U actid - Glargine 30U hs - ISS high dose ACHS - accuchecks ACHS - hypoglycemic protocol Insomnia, resolved - Ambien 5mg PO HS PRN for insomnia PPx, Diet, Disposition - DVT ppx: heparin 5000 q12 - GI ppx: protonix 40 mg PO daily - pain control with tylenol (mild pain), ibuprofen (moderate pain), Ultram (severe pain) - Diet: dietary supplements: Ensure Enlive TID, MV daily, HHD - palliative care consult - Jocelyn Coleman - hospice discussion - will follow up - Pastoral care- consul for emotinal support, patient feeling hopeless and hope ful about his current condition - will follow up - PT continues to take patient out of bed, patient desat when moving from bed to comode. Patient is given muscle strengthening exercises in bed. Will continue to follow up with PT Plan discussed with Dr David Tarango, PGY-1 <David Wellington H - Last Filed: 08/18/18 18:43> Objective - Vital Signs/Intake and Output Vital Signs (last 24 hours): Temp Pulse Resp BP Pulse Ox 98.1 F 112 H 20 130/87 99 08/18/18 16:00 08/18/18 16:00 08/18/18 16:00 08/18/18 16:00 08/18/18 16:00 Intake and Output: 08/18/18 08/18/18 06:59 18:59 Intake Total 300 Output Total 400 Balance -100 - Medications Medications: Current Medications Acetaminophen (Tylenol 325mg Tab) 650 mg PO Q6 PRN PRN Reason: Pain, Mild (1-3) Last Admin: 08/01/18 08:07 Dose: 650 mg Albuterol Sulfate (Albuterol 0.083% Inhal Stephany (2.5 Mg/3 Ml) Ud) 2.5 mg INH RQ6 PRN PRN Reason: Shortness of Breath Dextrose (Dextrose 50% Inj) 0 ml IV STAT PRN; Protocol PRN Reason: Hypoglycemia Protocol Dextrose (Glutose 15) 0 gm PO ONCE PRN; Protocol PRN Reason: Hypoglycemia Protocol Last Admin: 08/17/18 11:01 Dose: 15 gm Glucagon (Glucagen Diagnostic Kit) 0 mg IM STAT PRN; Protocol PRN Reason: Hypoglycemia Protocol Guaifenesin/Dextromethorphan (Robitussin Dm) 5 ml PO Q4H PRN PRN Reason: Cough Last Admin: 08/16/18 09:18 Dose: 5 ml Heparin Sodium (Porcine) (Heparin) 5,000 units SC Q12 [facility] Ibuprofen (Motrin Tab) 600 mg PO TID PRN PRN Reason: Pain, moderate (4-7) Last Admin: 08/14/18 21:36 Dose: 600 mg Insulin Aspart (Novolog) 12 unit SC ACTID [facility] Last Admin: 08/18/18 17:36 Dose: 12 units Insulin Glargine (Lantus) 30 unit SC Q12 [facility] Last Admin: 08/18/18 09:12 Dose: 30 units Insulin Human Regular (Novolin R) 0 unit SC ACHS [facility]; Protocol Last Admin: 08/18/18 17:35 Dose: 6 units Methylprednisolone (Solu-Medrol) 40 mg IV Q8H [facility] Last Admin: 08/18/18 16:38 Dose: 40 mg Multivitamins (Hexavitamin) 1 tab PO DAILY [facility] Last Admin: 08/18/18 09:12 Dose: 1 tab Pantoprazole Sodium (Protonix Ec Tab) 40 mg PO DAILY [facility] Last Admin: 08/18/18 09:12 Dose: 40 mg Tramadol HCl (Ultram) 25 mg PO TID PRN PRN Reason: Pain, severe (8-10) Last Admin: 08/10/18 21:57 Dose: 25 mg Zolpidem Tartrate (Ambien) 5 mg PO HS PRN PRN Reason: Insomnia Last Admin: 08/17/18 21:29 Dose: 5 mg - Labs Labs: 08/16/18 09:31 08/16/18 09:31 PT 12.6 SECONDS (9.7-12.2) H 07/27/18 07:05 INR 1.2 07/27/18 07:05 APTT 30 SECONDS (21-34) 07/27/18 07:05 Attending/Attestation - Attestation I have personally seen and examined this patient.: Yes I have fully participated in the care of the patient.: Yes I have reviewed all pertinent clinical information, including history, physical exam and plan: Yes Notes (Text): 08/18/18 18:42 Medical attending: Patient was seen and examined by me with the medical physiologist As described above in the resident's note the patient appeared very depressed today We had a long conversation David Wellington
[2018-08-18] MEDS: (Novolin R) Insulin Human Regular 100 units/ml vial SC SCH ×4 (07:31→21:27)
[2018-08-18] MEDS: (Novolog) Insulin Aspart, Recombinant 100 u/ml 10 ml vial SC SCH ×3 (07:31→17:36)
[2018-08-18] MEDS: Multiple Vitamins Tab PO SCH (09:12)
[2018-08-18] MEDS: (Lantus) Insulin Glargine, Recombinant SC SCH ×2 (09:12→21:22)
[2018-08-18] MEDS: Pantoprazole 40 mg EC Tab PO SCH (09:12)
[2018-08-18] MEDS: MethylPREDNISolone 40 mg Vial IV SCH ×2 (10:50→16:38)
--- NOTE | 2018-08-18 14:22 | CP.PCM.PN ---
Subjective - Date & Time of Evaluation Date of Evaluation: 08/18/18 Time of Evaluation: 10:00 - Subjective Subjective: Pulmonology Progress Note for Dr. Vera Patient seen and examined at bedside this morning. He slept well overnight and was resting comfortably in bed today. He continues to use the non-rebreather for dyspnea. He has been trying to wean off non-rebreather mask. He states that he can go 10-15 minutes without the non-rebreather mask before becoming short of breath again. He denies fevers, chills, chest pain, n/v, cough. Objective - Vital Signs/Intake and Output Vital Signs (last 24 hours): Temp Pulse Resp BP Pulse Ox 98.0 F 119 H 20 131/94 H 99 08/18/18 07:55 08/18/18 07:55 08/18/18 07:55 08/18/18 07:55 08/18/18 07:55 Intake and Output: 08/18/18 08/18/18 06:59 18:59 Intake Total 300 Output Total 400 Balance -100 - Medications Medications: Current Medications Acetaminophen (Tylenol 325mg Tab) 650 mg PO Q6 PRN PRN Reason: Pain, Mild (1-3) Last Admin: 08/01/18 08:07 Dose: 650 mg Albuterol Sulfate (Albuterol 0.083% Inhal Stephany (2.5 Mg/3 Ml) Ud) 2.5 mg INH RQ6 PRN PRN Reason: Shortness of Breath Dextrose (Dextrose 50% Inj) 0 ml IV STAT PRN; Protocol PRN Reason: Hypoglycemia Protocol Dextrose (Glutose 15) 0 gm PO ONCE PRN; Protocol PRN Reason: Hypoglycemia Protocol Last Admin: 08/17/18 11:01 Dose: 15 gm Glucagon (Glucagen Diagnostic Kit) 0 mg IM STAT PRN; Protocol PRN Reason: Hypoglycemia Protocol Guaifenesin/Dextromethorphan (Robitussin Dm) 5 ml PO Q4H PRN PRN Reason: Cough Last Admin: 08/16/18 09:18 Dose: 5 ml Ibuprofen (Motrin Tab) 600 mg PO TID PRN PRN Reason: Pain, moderate (4-7) Last Admin: 08/14/18 21:36 Dose: 600 mg Insulin Aspart (Novolog) 12 unit SC ACTID [facility] Last Admin: 08/18/18 11:33 Dose: 12 units Insulin Glargine (Lantus) 30 unit SC Q12 [facility] Last Admin: 08/18/18 09:12 Dose: 30 units Insulin Human Regular (Novolin R) 0 unit SC ACHS [facility]; Protocol Last Admin: 08/18/18 11:33 Dose: 8 units Methylprednisolone (Solu-Medrol) 40 mg IV Q8H [facility] Last Admin: 08/18/18 10:50 Dose: 40 mg Multivitamins (Hexavitamin) 1 tab PO DAILY [facility] Last Admin: 08/18/18 09:12 Dose: 1 tab Mycophenolate Mofetil (Cellcept) 500 mg PO BID [facility] Last Admin: 08/18/18 09:12 Dose: 500 mg Pantoprazole Sodium (Protonix Ec Tab) 40 mg PO DAILY [facility] Last Admin: 08/18/18 09:12 Dose: 40 mg Tramadol HCl (Ultram) 25 mg PO TID PRN PRN Reason: Pain, severe (8-10) Last Admin: 08/10/18 21:57 Dose: 25 mg Zolpidem Tartrate (Ambien) 5 mg PO HS PRN PRN Reason: Insomnia Last Admin: 08/17/18 21:29 Dose: 5 mg - Labs Labs: 08/16/18 09:31 08/16/18 09:31 PT 12.6 SECONDS (9.7-12.2) H 07/27/18 07:05 INR 1.2 07/27/18 07:05 APTT 30 SECONDS (21-34) 07/27/18 07:05 - Constitutional Appears: No Acute Distress, Cachectic - Head Exam Head Exam: ATRAUMATIC, NORMOCEPHALIC - Eye Exam Eye Exam: Normal appearance - ENT Exam ENT Exam: Mucous Membranes Moist - Neck Exam Neck Exam: absent: Lymphadenopathy - Respiratory Exam Respiratory Exam: Decreased Breath Sounds, Rales (b/l). absent: Accessory Muscle Use, Respiratory Distress Additional comments: non rebreather @10 L - Cardiovascular Exam Cardiovascular Exam: REGULAR RHYTHM, +S1, +S2. absent: Murmur - GI/Abdominal Exam GI & Abdominal Exam: Soft. absent: Firm, Guarding, Rigid, Tenderness - Extremities Exam Extremities Exam: absent: Pedal Edema - Neurological Exam Neurological Exam: Alert, Awake, Oriented x3 - Psychiatric Exam Psychiatric exam: Normal Affect, Normal Mood - Skin Skin Exam: Dry, Warm Assessment and Plan (1) Pulmonary fibrosis Assessment & Plan: Repeat CXR is relatively unchanged, showing interstitial fibrosis again Discontinued Cellcept continue to monitor oxygen saturation levels Status: Acute (2) Chronic respiratory failure with hypoxia Assessment & Plan: Continue to ween off of non-rebreather mask Patient is saturating well on NC and does not need non-rebreather continue to monitor vital signs Status: Acute
[2018-08-19] MEDS: MethylPREDNISolone 40 mg Vial IV SCH ×3 (00:05→16:00)
[2018-08-19 07:25] LABS: BASO % 0.5 % (0.0-2.0); EOS % 0.1 % (0.0-4.0); HEMOGLOBIN 13.9 g/dL (12.0-18.0); LYMPH # 0.4 K/uL (1.0-4.3); LYMPH % 5.6 % (20.0-40.0); MEAN CELL VOLUME 95.2 fL (80.0-94.0); MEAN CORPUSCULAR HEMOGLOBIN 31.7 pg (27.0-31.0); MEAN CORPUSCULAR HGB CONC 33.3 g/dL (33.0-37.0); MEAN PLATELET VOLUME 9.1 fL (7.2-11.7); MONO # 0.2 K/uL (0.0-0.8); MONO % 3.5 % (0.0-10.0); NEUT # 6.4 K/uL (1.8-7.0); NEUT % 90.3 % (50.0-75.0); NRBC % 0.1 % (0.0-2.0); PLATELET COUNT 119 K/uL (130-400); RBC 4.38 Mil/uL (4.40-5.90); RED CELL DISTRIBUTION WIDTH 16.4 % (11.5-14.5); WHITE BLOOD COUNT 7.1 K/uL (4.8-10.8)
[2018-08-19 07:41] LABS: ALB/GLOB RATIO 1.1 (1.0-2.1); ALBUMIN 3.1 g/dL (3.5-5.0); ALT/SGPT 41 U/L (21-72); AST/SGOT 21 U/L (17-59); BLOOD UREA NITROGEN 30 mg/dL (9-20); CALCIUM 8.3 mg/dl (8.6-10.4); GFR NON-AFRICAN AMERICAN > 60
[2018-08-19 08:35] LABS: BANDS 3 % (0-2); LYMPHOCYTE 5 % (20-40); MONOCYTE 3 % (0-10); NEUTROPHIL 88 % (50-75); PLATELET ESTIMATE SLIGHTLY DECREASED (NORMAL); REACTIVE LYMPHOCYTES 1 % (0-0); TOTAL CELLS COUNTED 100
[2018-08-19] MEDS: (Novolin R) Insulin Human Regular 100 units/ml vial SC SCH ×4 (08:37→22:01)
[2018-08-19] MEDS: (Novolog) Insulin Aspart, Recombinant 100 u/ml 10 ml vial SC SCH ×3 (08:38→17:16)
[2018-08-19] MEDS: Pantoprazole 40 mg EC Tab PO SCH (09:34)
[2018-08-19] MEDS: Multiple Vitamins Tab PO SCH (09:34)
[2018-08-19] MEDS: (Lantus) Insulin Glargine, Recombinant SC SCH ×2 (09:34→22:01)
--- NOTE | 2018-08-19 09:34 | CP.PCM.PN ---
<Deepti Simon - Last Filed: 08/19/18 11:43> Subjective - Date & Time of Evaluation Date of Evaluation: 08/19/18 Time of Evaluation: 09:31 - Subjective Subjective: Deepti Simon PGY1 Progress Note for Dr. Wellington Pt was examined at bedside this morning. He reports acute worsening of his breathing since yesterday, that has only just begun to improve. Pt denies chest pain, dizziness, nausea, vomiting, diarrhea, dysuria, abdominal pain. Pt reports that he wants to be comfortable and prefers euthanasia as he is aware of his prognosis and does not expect to get better. Objective - Vital Signs/Intake and Output Vital Signs (last 24 hours): Temp Pulse Resp BP Pulse Ox 97.4 F L 116 H 18 123/89 99 08/19/18 07:35 08/19/18 07:35 08/19/18 07:35 08/19/18 07:35 08/19/18 07:35 Intake and Output: 08/19/18 08/19/18 06:59 18:59 Intake Total 650 Output Total 1150 Balance -500 - Medications Medications: Current Medications Acetaminophen (Tylenol 325mg Tab) 650 mg PO Q6 PRN PRN Reason: Pain, Mild (1-3) Last Admin: 08/01/18 08:07 Dose: 650 mg Albuterol Sulfate (Albuterol 0.083% Inhal Stephany (2.5 Mg/3 Ml) Ud) 2.5 mg INH RQ6 PRN PRN Reason: Shortness of Breath Dextrose (Dextrose 50% Inj) 0 ml IV STAT PRN; Protocol PRN Reason: Hypoglycemia Protocol Dextrose (Glutose 15) 0 gm PO ONCE PRN; Protocol PRN Reason: Hypoglycemia Protocol Last Admin: 08/17/18 11:01 Dose: 15 gm Glucagon (Glucagen Diagnostic Kit) 0 mg IM STAT PRN; Protocol PRN Reason: Hypoglycemia Protocol Guaifenesin/Dextromethorphan (Robitussin Dm) 5 ml PO Q4H PRN PRN Reason: Cough Last Admin: 08/16/18 09:18 Dose: 5 ml Heparin Sodium (Porcine) (Heparin) 5,000 units SC Q12 [facility] Last Admin: 08/18/18 21:23 Dose: 5,000 units Ibuprofen (Motrin Tab) 600 mg PO TID PRN PRN Reason: Pain, moderate (4-7) Last Admin: 08/14/18 21:36 Dose: 600 mg Insulin Aspart (Novolog) 12 unit SC ACTID [facility] Last Admin: 08/19/18 08:38 Dose: 12 units Insulin Glargine (Lantus) 30 unit SC Q12 [facility] Last Admin: 08/18/18 21:22 Dose: 30 units Insulin Human Regular (Novolin R) 0 unit SC ACHS [facility]; Protocol Last Admin: 08/19/18 08:37 Dose: 8 units Methylprednisolone (Solu-Medrol) 40 mg IV Q8H [facility] Last Admin: 08/19/18 00:05 Dose: 40 mg Multivitamins (Hexavitamin) 1 tab PO DAILY [facility] Last Admin: 08/18/18 09:12 Dose: 1 tab Pantoprazole Sodium (Protonix Ec Tab) 40 mg PO DAILY [facility] Last Admin: 08/18/18 09:12 Dose: 40 mg Tramadol HCl (Ultram) 25 mg PO TID PRN PRN Reason: Pain, severe (8-10) Last Admin: 08/10/18 21:57 Dose: 25 mg Zolpidem Tartrate (Ambien) 5 mg PO HS PRN PRN Reason: Insomnia Last Admin: 08/18/18 21:32 Dose: 5 mg - Labs Labs: 08/19/18 07:02 08/19/18 07:02 PT 12.6 SECONDS (9.7-12.2) H 07/27/18 07:05 INR 1.2 07/27/18 07:05 APTT 30 SECONDS (21-34) 07/27/18 07:05 - Additional Findings Additional findings: - Constitutional Appears: Non-toxic, No Acute Distress - Head Exam Head Exam: ATRAUMATIC, NORMAL INSPECTION, NORMOCEPHALIC - Eye Exam Eye Exam: EOMI, Normal appearance - ENT Exam ENT Exam: Mucous Membranes Moist, Normal Exam - Neck Exam Neck Exam: Full ROM, Normal Inspection - Respiratory Exam Respiratory Exam: Decreased Breath Sounds, Rales, NORMAL BREATHING PATTERN - Cardiovascular Exam Cardiovascular Exam: Tachycardia, REGULAR RHYTHM, +S1, +S2 - GI/Abdominal Exam GI & Abdominal Exam: Soft, Normal Bowel Sounds. absent: Distended, Tenderness - Extremities Exam Extremities Exam: absent: Full ROM, Pedal Edema, Tenderness Additional comments: muscle wasting b/l - Back Exam Back Exam: NORMAL INSPECTION - Neurological Exam Neurological Exam: Alert, Awake, Oriented x3 - Psychiatric Exam Psychiatric exam: Normal Affect, Normal Mood - Skin Skin Exam: Dry, Intact, Normal Color, Warm Assessment and Plan - Assessment and Plan (Free Text) Assessment: 63yo M with PMH interstitial lung disease admitted for shortness of breath with severe fibrosis in lungs. Pt is DNR/DNI. Attempting to wean pt off NRB. Plan: Interstitial pulmonary fibrosis - patient has history of tobacco use and environmental exposure from work - nonrebreather mask @10 L - continue to wean off as per pulm recs - encourage NC - Bipap only at night time - f/u labs Q3 days - Duoneb Q4H [facility] - albuterol Q6hr PRN - Tapering steroid - Solumedrol 40mg IVP TID - Robitussin 5ml PO Q4H PRN for cough - Pulmonology recs (Dr. Vera) - Repeat CXR is relatively unchanged, showing interstitial fibrosis again, Discontinued Cellcept, continue to monitor oxygen saturation levels - Continue to ween off of non-rebreather mask, Patient is saturating well on NC and does not need non-rebreather Pre-diabetes mellitus, chronic - A1c 5.5 - Novolog 12U actid - Glargine 30U hs - ISS high dose ACHS - accuchecks ACHS - hypoglycemic protocol Insomnia, resolved - Ambien 5mg PO HS PRN for insomnia PPx, Diet, Disposition - DVT ppx: heparin 5000 q12 - GI ppx: protonix 40 mg PO daily - pain control with tylenol (mild pain), ibuprofen (moderate pain), Ultram (severe pain) - Diet: dietary supplements: Ensure Enlive TID, MV daily, HHD - palliative care consult - Hope Coleman - hospice discussion, recs appreciated - Pastoral care- consult for emotinal support, patient feeling hopeless and hopeful about his current condition - will follow up - PT continues to take patient out of bed, patient desat when moving from bed to comode. Patient is given muscle strengthening exercises in bed. Will continue to follow up with PT Dispo: hospice eval request is in, however as per pt is unlikely to be accepted due to lack of insurance and lack of acuity of his condition. If not accepted, we will being comfort measures for patient with low dose morphine t omorrow. Plan discussed with Dr. Wellington <David Wellington H - Last Filed: 08/19/18 16:45> Objective - Vital Signs/Intake and Output Vital Signs (last 24 hours): Temp Pulse Resp BP Pulse Ox 97.4 F L 116 H 18 123/89 99 08/19/18 07:35 08/19/18 07:35 08/19/18 07:35 08/19/18 07:35 08/19/18 07:35 Intake and Output: 08/19/18 08/19/18 06:59 18:59 Intake Total 650 200 Output Total 1150 600 Balance -500 -400 - Medications Medications: Current Medications Acetaminophen (Tylenol 325mg Tab) 650 mg PO Q6 PRN PRN Reason: Pain, Mild (1-3) Last Admin: 08/01/18 08:07 Dose: 650 mg Albuterol Sulfate (Albuterol 0.083% Inhal Stephany (2.5 Mg/3 Ml) Ud) 2.5 mg INH RQ6 PRN PRN Reason: Shortness of Breath Dextrose (Dextrose 50% Inj) 0 ml IV STAT PRN; Protocol PRN Reason: Hypoglycemia Protocol Dextrose (Glutose 15) 0 gm PO ONCE PRN; Protocol PRN Reason: Hypoglycemia Protocol Last Admin: 08/17/18 11:01 Dose: 15 gm Glucagon (Glucagen Diagnostic Kit) 0 mg IM STAT PRN; Protocol PRN Reason: Hypoglycemia Protocol Guaifenesin/Dextromethorphan (Robitussin Dm) 5 ml PO Q4H PRN PRN Reason: Cough Last Admin: 08/16/18 09:18 Dose: 5 ml Heparin Sodium (Porcine) (Heparin) 5,000 units SC Q12 [facility] Last Admin: 08/19/18 09:35 Dose: 5,000 units Ibuprofen (Motrin Tab) 600 mg PO TID PRN PRN Reason: Pain, moderate (4-7) Last Admin: 08/14/18 21:36 Dose: 600 mg Insulin Aspart (Novolog) 12 unit SC ACTID [facility] Last Admin: 08/19/18 11:38 Dose: 12 units Insulin Glargine (Lantus) 30 unit SC Q12 [facility] Last Admin: 08/19/18 09:34 Dose: 30 units Insulin Human Regular (Novolin R) 0 unit SC ACHS [facility]; Protocol Last Admin: 08/19/18 11:39 Dose: 2 units Methylprednisolone (Solu-Medrol) 40 mg IV Q8H [facility] Last Admin: 08/19/18 09:34 Dose: 40 mg Multivitamins (Hexavitamin) 1 tab PO DAILY [facility] Last Admin: 08/19/18 09:34 Dose: 1 tab Pantoprazole Sodium (Protonix Ec Tab) 40 mg PO DAILY [facility] Last Admin: 08/19/18 09:34 Dose: 40 mg Tramadol HCl (Ultram) 25 mg PO TID PRN PRN Reason: Pain, severe (8-10) Last Admin: 08/10/18 21:57 Dose: 25 mg Zolpidem Tartrate (Ambien) 5 mg PO HS PRN PRN Reason: Insomnia Last Admin: 08/18/18 21:32 Dose: 5 mg - Labs Labs: 08/19/18 07:02 08/19/18 07:02 PT 12.6 SECONDS (9.7-12.2) H 07/27/18 07:05 INR 1.2 07/27/18 07:05 APTT 30 SECONDS (21-34) 07/27/18 07:05 Attending/Attestation - Attestation I have personally seen and examined this patient.: Yes I have fully participated in the care of the patient.: Yes I have reviewed all pertinent clinical information, including history, physical exam and plan: Yes
--- NOTE | 2018-08-19 11:45 | CP.PCM.PN ---
Subjective - Date & Time of Evaluation Date of Evaluation: 08/19/18 Time of Evaluation: 10:00 - Subjective Subjective: Palliative care was asked to reassess this patient for further goals of care discussion, as his condition got more complex. Patient examined in bed, alert, oriented X3. Speech is difficult due to SOB, patient is unable to speak in full sentences. O2 on. He looks pale, weak and admits to be feeling tired. BP 123/89, HR 73, )2 Sat 100% with non rebrither mask, RR 25 Objective - Vital Signs/Intake and Output Vital Signs (last 24 hours): Temp Pulse Resp BP Pulse Ox 97.4 F L 116 H 18 123/89 99 08/19/18 07:35 08/19/18 07:35 08/19/18 07:35 08/19/18 07:35 08/19/18 07:35 Intake and Output: 08/19/18 08/19/18 06:59 18:59 Intake Total 650 Output Total 1150 Balance -500 - Medications Medications: Current Medications Acetaminophen (Tylenol 325mg Tab) 650 mg PO Q6 PRN PRN Reason: Pain, Mild (1-3) Last Admin: 08/01/18 08:07 Dose: 650 mg Albuterol Sulfate (Albuterol 0.083% Inhal Stephany (2.5 Mg/3 Ml) Ud) 2.5 mg INH RQ6 PRN PRN Reason: Shortness of Breath Dextrose (Dextrose 50% Inj) 0 ml IV STAT PRN; Protocol PRN Reason: Hypoglycemia Protocol Dextrose (Glutose 15) 0 gm PO ONCE PRN; Protocol PRN Reason: Hypoglycemia Protocol Last Admin: 08/17/18 11:01 Dose: 15 gm Glucagon (Glucagen Diagnostic Kit) 0 mg IM STAT PRN; Protocol PRN Reason: Hypoglycemia Protocol Guaifenesin/Dextromethorphan (Robitussin Dm) 5 ml PO Q4H PRN PRN Reason: Cough Last Admin: 08/16/18 09:18 Dose: 5 ml Heparin Sodium (Porcine) (Heparin) 5,000 units SC Q12 [facility] Last Admin: 08/19/18 09:35 Dose: 5,000 units Ibuprofen (Motrin Tab) 600 mg PO TID PRN PRN Reason: Pain, moderate (4-7) Last Admin: 08/14/18 21:36 Dose: 600 mg Insulin Aspart (Novolog) 12 unit SC ACTID [facility] Last Admin: 08/19/18 11:38 Dose: 12 units Insulin Glargine (Lantus) 30 unit SC Q12 [facility] Last Admin: 08/19/18 09:34 Dose: 30 units Insulin Human Regular (Novolin R) 0 unit SC ACHS [facility]; Protocol Last Admin: 08/19/18 11:39 Dose: 2 units Methylprednisolone (Solu-Medrol) 40 mg IV Q8H [facility] Last Admin: 08/19/18 09:34 Dose: 40 mg Multivitamins (Hexavitamin) 1 tab PO DAILY [facility] Last Admin: 08/19/18 09:34 Dose: 1 tab Pantoprazole Sodium (Protonix Ec Tab) 40 mg PO DAILY [facility] Last Admin: 08/19/18 09:34 Dose: 40 mg Tramadol HCl (Ultram) 25 mg PO TID PRN PRN Reason: Pain, severe (8-10) Last Admin: 08/10/18 21:57 Dose: 25 mg Zolpidem Tartrate (Ambien) 5 mg PO HS PRN PRN Reason: Insomnia Last Admin: 08/18/18 21:32 Dose: 5 mg - Labs Labs: 08/19/18 07:02 08/19/18 07:02 PT 12.6 SECONDS (9.7-12.2) H 07/27/18 07:05 INR 1.2 07/27/18 07:05 APTT 30 SECONDS (21-34) 07/27/18 07:05 - Constitutional Appears: In Acute Distress, Chronically Ill - Head Exam Head Exam: ATRAUMATIC, NORMAL INSPECTION, NORMOCEPHALIC - Eye Exam Eye Exam: EOMI, Normal appearance, PERRL Pupil Exam: NORMAL ACCOMODATION, PERRL - ENT Exam ENT Exam: Mucous Membranes Dry - Neck Exam Neck Exam: Full ROM, Normal Inspection - Respiratory Exam Respiratory Exam: Accessory Muscle Use, Respiratory Distress - Cardiovascular Exam Cardiovascular Exam: Tachycardia - GI/Abdominal Exam GI & Abdominal Exam: Soft, Normal Bowel Sounds - Rectal Exam Rectal Exam: Deferred - Exam Exam: NORMAL INSPECTION - Extremities Exam Extremities Exam: Normal Inspection - Back Exam Back Exam: NORMAL INSPECTION - Neurological Exam Neurological Exam: Alert, Oriented x3 Neuro motor strength exam: Left Upper Extremity: 2/1, Right Upper Extremity: 2/1, Left Lower Extremity: 09/11, Right Lower Extremity: 09/11 - Psychiatric Exam Psychiatric exam: Depressed - Skin Skin Exam: Dry, Intact, Pallor Assessment and Plan - Assessment and Plan (Free Text) Assessment: I discussed with patient his condition and elicited his feelings. Patient did admit to me that he feels much worse than last time we met, about 2 weeks ago. His breathing is labored, unable to speak in full sentence, mouth is dry, depends on high flow O2. I reviewed again his diagnosis and using a very gentle words I suggested that prognosis is poor and that at this time care should be directed more towards his comfort. Patient stated understanding. I offered more information about hospice care. I discussed this with Nayla CASTRO and Doctor Eliz and his Residents. The concern is patient's lack of Insurance. Nayla MCCOLLUM suggested she will try to provide [facility] for this patient. I further discuss this with [employer].Given that it will take time, and patient is in acute distress, Comfort measures initiated here at hospital even before and if hospice comes on board, would be best care for this patient. Impression * Acute respiratory distress * generalized weakness * Lack of housing * Lack of Health Insurance * Lack of family support * Prognosis is grave Suggestion * Comfort care would be the best care for this very sick patient, where cure is not an option * Would initiate Comfort Set Orders to alleviate symptoms and promote comfort Advance care planing, 30 min Palliative care will rfallo with this patient as needed.
--- NOTE | 2018-08-19 15:02 | CP.PCM.PN ---
Subjective - Date & Time of Evaluation Date of Evaluation: 08/19/18 Time of Evaluation: 15:02 - Subjective Subjective: Pulmonology Note for Dr. Vera Patient seen and examined this morning at bedside. Patient states that he is uncomfortable and short of breath when is not using the non-rebeather mask. Continues to use the NRB 10LPM and says that he has not been able to take it off without feeling uncomfortable. He still complains of b/l lower extremity weakness. Denies fevers, chills, cough, hemoptysis, nausea, vomiting, abdominal pain. Objective - Vital Signs/Intake and Output Vital Signs (last 24 hours): Temp Pulse Resp BP Pulse Ox 97.4 F L 116 H 18 123/89 99 08/19/18 07:35 08/19/18 07:35 08/19/18 07:35 08/19/18 07:35 08/19/18 07:35 Intake and Output: 08/19/18 08/19/18 06:59 18:59 Intake Total 650 200 Output Total 1150 600 Balance -500 -400 - Medications Medications: Current Medications Acetaminophen (Tylenol 325mg Tab) 650 mg PO Q6 PRN PRN Reason: Pain, Mild (1-3) Last Admin: 08/01/18 08:07 Dose: 650 mg Albuterol Sulfate (Albuterol 0.083% Inhal Stephany (2.5 Mg/3 Ml) Ud) 2.5 mg INH RQ6 PRN PRN Reason: Shortness of Breath Dextrose (Dextrose 50% Inj) 0 ml IV STAT PRN; Protocol PRN Reason: Hypoglycemia Protocol Dextrose (Glutose 15) 0 gm PO ONCE PRN; Protocol PRN Reason: Hypoglycemia Protocol Last Admin: 08/17/18 11:01 Dose: 15 gm Glucagon (Glucagen Diagnostic Kit) 0 mg IM STAT PRN; Protocol PRN Reason: Hypoglycemia Protocol Guaifenesin/Dextromethorphan (Robitussin Dm) 5 ml PO Q4H PRN PRN Reason: Cough Last Admin: 08/16/18 09:18 Dose: 5 ml Heparin Sodium (Porcine) (Heparin) 5,000 units SC Q12 [facility] Last Admin: 08/19/18 09:35 Dose: 5,000 units Ibuprofen (Motrin Tab) 600 mg PO TID PRN PRN Reason: Pain, moderate (4-7) Last Admin: 08/14/18 21:36 Dose: 600 mg Insulin Aspart (Novolog) 12 unit SC ACTID [facility] [place] Last Admin: 08/19/18 11:38 Dose: 12 units Insulin Glargine (Lantus) 30 unit SC Q12 [facility] Last Admin: 08/19/18 09:34 Dose: 30 units Insulin Human Regular (Novolin R) 0 unit SC ACHS [facility] [place]; Protocol Last Admin: 08/19/18 11:39 Dose: 2 units Methylprednisolone (Solu-Medrol) 40 mg IV Q8H [facility] Last Admin: 08/19/18 09:34 Dose: 40 mg Multivitamins (Hexavitamin) 1 tab PO DAILY [facility] Last Admin: 08/19/18 09:34 Dose: 1 tab Pantoprazole Sodium (Protonix Ec Tab) 40 mg PO DAILY [facility] Last Admin: 08/19/18 09:34 Dose: 40 mg Tramadol HCl (Ultram) 25 mg PO TID PRN PRN Reason: Pain, severe (8-10) Last Admin: 08/10/18 21:57 Dose: 25 mg Zolpidem Tartrate (Ambien) 5 mg PO HS PRN PRN Reason: Insomnia Last Admin: 08/18/18 21:32 Dose: 5 mg - Labs Labs: 08/19/18 07:02 08/19/18 07:02 PT 12.6 SECONDS (9.7-12.2) H 07/27/18 07:05 INR 1.2 07/27/18 07:05 APTT 30 SECONDS (21-34) 07/27/18 07:05 - Constitutional Appears: Non-toxic, No Acute Distress, Cachectic - Head Exam Head Exam: ATRAUMATIC, NORMOCEPHALIC - Neck Exam Neck Exam: absent: Lymphadenopathy - Respiratory Exam Respiratory Exam: Decreased Breath Sounds, Rales (bases b/l). absent: Accessory Muscle Use, Rhonchi, Wheezes, NORMAL BREATHING PATTERN Additional comments: patient currently on non-rebreather - Cardiovascular Exam Cardiovascular Exam: Tachycardia - GI/Abdominal Exam GI & Abdominal Exam: Soft. absent: Distended, Firm, Guarding, Rigid, Tenderness - Extremities Exam Extremities Exam: absent: Pedal Edema - Neurological Exam Neurological Exam: Alert, Awake, Oriented x3 - Psychiatric Exam Psychiatric exam: Normal Affect, Normal Mood - Skin Skin Exam: Dry, Warm Assessment and Plan (1) Pulmonary fibrosis Assessment & Plan: Repeat CXR is relatively unchanged, showing interstitial fibrosis again continue to monitor oxygen saturation levels Status: Acute (2) Chronic respiratory failure with hypoxia Assessment & Plan: Patient saturates well on NC and does not need non-rebreather He is psychologically dependent on non-rebreather mask but does not need it. Continue to ween off of non-rebreather mask continue to monitor vital signs Status: Acute
[2018-08-20] MEDS: MethylPREDNISolone 40 mg Vial IV SCH ×3 (00:20→16:00)
[2018-08-20] MEDS: (Novolog) Insulin Aspart, Recombinant 100 u/ml 10 ml vial SC SCH ×2 (07:45→12:28)
[2018-08-20] MEDS: (Novolin R) Insulin Human Regular 100 units/ml vial SC SCH ×2 (07:46→12:28)
[2018-08-20] MEDS: Pantoprazole 40 mg EC Tab PO SCH (09:14)
[2018-08-20] MEDS: Multiple Vitamins Tab PO SCH (09:14)
[2018-08-20] MEDS: (Lantus) Insulin Glargine, Recombinant SC SCH (09:15)
--- NOTE | 2018-08-20 18:13 | CP.PCM.PN ---
<Adrian Tarango - Last Filed: 08/20/18 18:11> Subjective - Date & Time of Evaluation Date of Evaluation: 08/20/18 Time of Evaluation: 10:00 - Subjective Subjective: PGY-[address] Wellington Patient is seen and examined at bedside. No acute events overnight. Patient states feeling well. Patient continues to feel short of breath, using oxygen Nonrebreather mask on and off. Patient admits to eating regularly, and having bowel movements. Patient has no other complaints at this time. Objective - Vital Signs/Intake and Output Vital Signs (last 24 hours): Temp Pulse Resp BP Pulse Ox 98.9 F 100 H 22 136/95 H 99 08/20/18 07:52 08/20/18 07:52 08/20/18 07:52 08/20/18 07:52 08/20/18 07:52 Intake and Output: 08/20/18 08/20/18 06:59 18:59 Intake Total 700 Balance 700 - Medications Medications: Current Medications Acetaminophen (Tylenol 325mg Tab) 650 mg PO Q6 PRN PRN Reason: Pain, Mild (1-3) Last Admin: 08/01/18 08:07 Dose: 650 mg Guaifenesin/Dextromethorphan (Robitussin Dm) 5 ml PO Q4H PRN PRN Reason: Cough Last Admin: 08/16/18 09:18 Dose: 5 ml Morphine Sulfate 250 mg/ (Sodium Chloride) 250 mls @ 1 mls/hr IV .Q24H PRN; Protocol PRN Reason: comfort care/hospice Last Admin: 08/20/18 14:54 Dose: 1 mg/hr, 1 mls/hr Ibuprofen (Motrin Tab) 600 mg PO TID PRN PRN Reason: Pain, moderate (4-7) Last Admin: 08/14/18 21:36 Dose: 600 mg Methylprednisolone (Solu-Medrol) 40 mg IV Q8H [facility] Last Admin: 08/20/18 16:00 Dose: 40 mg Multivitamins (Hexavitamin) 1 tab PO DAILY [facility] Last Admin: 08/20/18 09:14 Dose: 1 tab Tramadol HCl (Ultram) 25 mg PO TID PRN PRN Reason: Pain, severe (8-10) Last Admin: 08/10/18 21:57 Dose: 25 mg Zolpidem Tartrate (Ambien) 5 mg PO HS PRN PRN Reason: Insomnia Last Admin: 08/19/18 22:00 Dose: 5 mg - Labs Labs: 08/19/18 07:02 08/19/18 07:02 PT 12.6 SECONDS (9.7-12.2) H 07/27/18 07:05 INR 1.2 07/27/18 07:05 APTT 30 SECONDS (21-34) 07/27/18 07:05 - Constitutional Appears: Non-toxic, No Acute Distress, Cachectic, Chronically Ill - Head Exam Head Exam: ATRAUMATIC, NORMAL INSPECTION, NORMOCEPHALIC - Eye Exam Eye Exam: EOMI, Normal appearance - ENT Exam ENT Exam: Mucous Membranes Moist - Neck Exam Neck Exam: Full ROM - Respiratory Exam Respiratory Exam: Decreased Breath Sounds, Rales. absent: Rhonchi, Wheezes - Cardiovascular Exam Cardiovascular Exam: Tachycardia, REGULAR RHYTHM, +S1 - GI/Abdominal Exam GI & Abdominal Exam: Soft, Normal Bowel Sounds. absent: Tenderness - Extremities Exam Additional comments: muscle wasting noted on calves b/l - Back Exam Back Exam: NORMAL INSPECTION - Neurological Exam Neurological Exam: Alert, Awake, Oriented x3. absent: Normal Gait - Psychiatric Exam Psychiatric exam: Normal Affect, Normal Mood - Skin Skin Exam: Dry, Intact, Normal Color, Warm Assessment and Plan - Assessment and Plan (Free Text) Assessment: 63yo M with PMH interstitial lung disease admitted for shortness of breath 2/2 severe fibrosis in lungs with poor prognosis. Plan: Interstitial pulmonary fibrosis, On comfort care measures - poor prognosis - Started patient morphine drip @ 1mls/hr - continue nonrebreather mask / NC - Solumedrol 40mg IVP TID Pre-diabetes mellitus, chronic - as per comfort care- we will d/c the following: - Novolog 12U actid - Glargine 30U hs - ISS high dose ACHS - accuchecks ACHS - hypoglycemic protocol Insomnia, resolved - Ambien 5mg PO HS PRN for insomnia PPx, Diet, Disposition - no ppx, patient is now on comfort care - pain control with tylenol (mild pain), ibuprofen (moderate pain), Ultram (severe pain), morphine drip - Diet: dietary supplements: Ensure Enlive TID, MV daily, regular diet - palliative care consult - Obradovic, [place] - hospice consult -Comfort care would be the best care for this very sick patient, where cure is not an option -Would initiate Comfort Set Orders to alleviate symptoms and promote comfort - Pastoral care- consult for emotinal support, patient feeling hopeless and hopeful about his current condition - will follow up Dispo: After discussion about comfort care measures, Patient agree to start morphine drip 1gm for comfort. Will continue to follow patient on his desires on keeping morphine drip at current rate or to be increased. will continue to follow with Palliative Care [facility] on in hospital hospice care. Plan discussed with Dr. Eliz Tarango, PGY-1 <David Wellington - Last Filed: 08/20/18 19:10> Objective - Vital Signs/Intake and Output Vital Signs (last 24 hours): Temp Pulse Resp BP Pulse Ox 98.9 F 100 H 22 136/95 H 99 08/20/18 07:52 08/20/18 07:52 08/20/18 07:52 08/20/18 07:52 08/20/18 07:52 - Medications Medications: Current Medications Acetaminophen (Tylenol 325mg Tab) 650 mg PO Q6 PRN PRN Reason: Pain, Mild (1-3) Last Admin: 08/01/18 08:07 Dose: 650 mg Guaifenesin/Dextromethorphan (Robitussin Dm) 5 ml PO Q4H PRN PRN Reason: Cough Last Admin: 08/16/18 09:18 Dose: 5 ml Morphine Sulfate 250 mg/ (Sodium Chloride) 250 mls @ 1 mls/hr IV .Q24H PRN; Protocol PRN Reason: comfort care/hospice Last Admin: 08/20/18 14:54 Dose: 1 mg/hr, 1 mls/hr Ibuprofen (Motrin Tab) 600 mg PO TID PRN PRN Reason: Pain, moderate (4-7) Last Admin: 08/14/18 21:36 Dose: 600 mg Methylprednisolone (Solu-Medrol) 40 mg IV Q8H [facility] Last Admin: 08/20/18 16:00 Dose: 40 mg Multivitamins (Hexavitamin) 1 tab PO DAILY [facility] Last Admin: 08/20/18 09:14 Dose: 1 tab Tramadol HCl (Ultram) 25 mg PO TID PRN PRN Reason: Pain, severe (8-10) Last Admin: 08/10/18 21:57 Dose: 25 mg Zolpidem Tartrate (Ambien) 5 mg PO HS PRN PRN Reason: Insomnia Last Admin: 08/19/18 22:00 Dose: 5 mg - Labs Labs: 08/19/18 07:02 08/19/18 07:02 PT 12.6 SECONDS (9.7-12.2) H 07/27/18 07:05 INR 1.2 07/27/18 07:05 APTT 30 SECONDS (21-34) 07/27/18 07:05 Attending/Attestation - Attestation I have personally seen and examined this patient.: Yes I have fully participated in the care of the patient.: Yes I have reviewed all pertinent clinical information, including history, physical exam and plan: Yes Notes (Text): 08/20/18 19:05 Medical attending: Patient was seen and examined by me. Agree with the above note by the resident Today after further discussion with the patient he wanted to start his hospice now. We discussed further and he wanted to try morphine ggt. We will start a low dose ggt at 1 mg/hr for now and we will re-evaluate to see how he does. If he does not feel that this is enough then we explained to him that when we see him again he can also have this increased further. But if he finds a level that is comfortable for him we would continue that Things such as heparin ggt, accuchecks, vital checks have been stopped. David Wellington
[2018-08-21] MEDS ORDERED: Simethicone 80 mg Chewtab PO STA (00:10)
[2018-08-21] MEDS: MethylPREDNISolone 40 mg Vial IV SCH ×2 (00:20→07:30)
[2018-08-21] MEDS: Multiple Vitamins Tab PO SCH (09:08)
--- NOTE | 2018-08-21 16:31 | CP.PCM.PN ---
Subjective - Date & Time of Evaluation Date of Evaluation: 08/21/18 Time of Evaluation: 10:30 - Subjective Subjective: PGY-1 Medicine Progress Note for Dr. Wellington Patient was seen and examined today at bedside. Nurse reported no overnight events. Discussed with care team that patient no longer requires daily labs, vitals checks, and neuro checks. Patient requests a higher morphine dose and relaxant for anxiety. He admits to blurring of vision where images were darker. Patient is comfortable on NRB for supplemental oxygen. Objective - Vital Signs/Intake and Output Vital Signs (last 24 hours): Temp Pulse Resp BP Pulse Ox 97.6 F 116 H 20 145/88 97 08/21/18 16:08 08/21/18 16:08 08/21/18 16:08 08/21/18 16:08 08/21/18 16:08 Intake and Output: 08/21/18 08/21/18 06:59 18:59 Intake Total 408 Output Total 1200 Balance -792 - Medications Medications: Current Medications Acetaminophen (Tylenol 325mg Tab) 650 mg PO Q6 PRN PRN Reason: Pain, Mild (1-3) Last Admin: 08/01/18 08:07 Dose: 650 mg Alprazolam (Xanax) 1 mg PO TID PRN PRN Reason: Anxiety Docusate Sodium (Colace) 100 mg PO BID PRN PRN Reason: constpation Guaifenesin/Dextromethorphan (Robitussin Dm) 5 ml PO Q4H PRN PRN Reason: Cough Last Admin: 08/16/18 09:18 Dose: 5 ml Morphine Sulfate 250 mg/ (Sodium Chloride) 250 mls @ 2 mls/hr IV .Q24H PRN; Protocol PRN Reason: comfort care/hospice Ibuprofen (Motrin Tab) 600 mg PO TID PRN PRN Reason: Pain, moderate (4-7) Last Admin: 08/14/18 21:36 Dose: 600 mg Methylprednisolone (Solu-Medrol) 40 mg IVP DAILY [facility] Multivitamins (Hexavitamin) 1 tab PO DAILY [facility] Last Admin: 08/21/18 09:08 Dose: 1 tab Tramadol HCl (Ultram) 25 mg PO TID PRN PRN Reason: Pain, severe (8-10) Last Admin: 08/10/18 21:57 Dose: 25 mg Zolpidem Tartrate (Ambien) 5 mg PO HS PRN PRN Reason: Insomnia Last Admin: 08/21/18 00:20 Dose: 5 mg - Labs Labs: 08/19/18 07:02 08/19/18 07:02 PT 12.6 SECONDS (9.7-12.2) H 07/27/18 07:05 INR 1.2 07/27/18 07:05 APTT 30 SECONDS (21-34) 07/27/18 07:05 - Constitutional Appears: Non-toxic, No Acute Distress, Cachectic, Chronically Ill - Head Exam Head Exam: ATRAUMATIC, NORMOCEPHALIC - Eye Exam Eye Exam: EOMI, PERRL - ENT Exam ENT Exam: Mucous Membranes Moist - Neck Exam Neck Exam: Full ROM - Respiratory Exam Respiratory Exam: Decreased Breath Sounds, Rales, Rhonchi. absent: Wheezes - Cardiovascular Exam Cardiovascular Exam: Tachycardia, REGULAR RHYTHM, +S1, +S2 - GI/Abdominal Exam GI & Abdominal Exam: Soft, Normal Bowel Sounds. absent: Tenderness - Extremities Exam Additional comments: muscle wasting in extremities - Neurological Exam Neurological Exam: Alert, Awake, Oriented x3. absent: Normal Gait - Psychiatric Exam Psychiatric exam: Normal Affect, Normal Mood - Skin Skin Exam: Pallor. absent: Dry, Normal Color Assessment and Plan - Assessment and Plan (Free Text) Assessment: 63yo M with PMH interstitial lung disease admitted for shortness of breath 2/2 severe fibrosis in lungs with poor prognosis. He has initiated hospice care and is for comfort care. Plan: Interstitial pulmonary fibrosis, On comfort care measures - poor prognosis - increased morphine drip @ 2mls/hr - continue NRB/NC as patient desires - Solumedrol 40mg IVP TID Pre-diabetes mellitus, chronic - as per comfort care, we will d/c the following: - Novolog 12U actid - Glargine 30U hs - ISS high dose ACHS - accuchecks ACHS - hypoglycemic protocol Insomnia, resolved - Ambien 5mg PO HS PRN for insomnia PPx, Diet, Disposition - no ppx, patient is now on comfort care - pain control with tylenol (mild pain), ibuprofen (moderate pain), Ultram (severe pain), morphine drip - Xanax 1mg po tid prn - Diet: dietary supplements: Ensure Enlive TID, MV daily, regular diet - palliative care consult - Hope Coleman - hospice consult -Comfort care would be the best care for this very sick patient, where cure is not an option -Would initiate Comfort Set Orders to alleviate symptoms and promote comfort - Pastoral care- consult for emotinal support, patient feeling hopeless and hopeful about his current condition - will follow up - PT consulted, and working with patient. He quickly becomes winded. Will work with him every other day. Dispo: Will continue to follow patient on his desires on keeping morphine drip at current rate or to be increased. will continue to follow with Palliative Care [facility] on in hospital hospice care. d/w Dr. Eliz Ospina PGY-1
[2018-08-21] MEDS: MethylPREDNISolone 40 mg Vial IVP SCH (18:06)
--- NOTE | 2018-08-22 09:42 | CP.PCM.PN ---
<Adrian Tarango - Last Filed: 08/22/18 09:39> Subjective - Date & Time of Evaluation Date of Evaluation: 08/22/18 Time of Evaluation: 09:41 - Subjective Subjective: PGY-[address] David Wellington service Patient is seen and examined at bedside. Patient states feeling well. No acute events reported. Patient states morphine makes him feel relaxed, as is now able to sleep better at nights. Patient is eating regularly, moving bowel. denies fever, chills, chest pain, sob, abd pain, n/v/d/c or urinary symptoms. Objective - Vital Signs/Intake and Output Vital Signs (last 24 hours): Temp Pulse Resp BP Pulse Ox 98.1 F 80 20 121/86 96 08/22/18 08:00 08/22/18 08:00 08/22/18 08:00 08/22/18 06:00 08/22/18 08:00 Intake and Output: 08/22/18 08/22/18 06:59 18:59 Intake Total 300 Balance 300 - Medications Medications: Current Medications Acetaminophen (Tylenol 325mg Tab) 650 mg PO Q6 PRN PRN Reason: Pain, Mild (1-3) Last Admin: 08/01/18 08:07 Dose: 650 mg Alprazolam (Xanax) 1 mg PO TID PRN PRN Reason: Anxiety Docusate Sodium (Colace) 100 mg PO BID PRN PRN Reason: constpation Guaifenesin/Dextromethorphan (Robitussin Dm) 5 ml PO Q4H PRN PRN Reason: Cough Last Admin: 08/16/18 09:18 Dose: 5 ml Morphine Sulfate 250 mg/ (Sodium Chloride) 250 mls @ 2 mls/hr IV .Q24H PRN; Protocol PRN Reason: comfort care/hospice Ibuprofen (Motrin Tab) 600 mg PO TID PRN PRN Reason: Pain, moderate (4-7) Last Admin: 08/14/18 21:36 Dose: 600 mg Methylprednisolone (Solu-Medrol) 40 mg IVP TID [facility] Last Admin: 08/21/18 18:06 Dose: 40 mg Multivitamins (Hexavitamin) 1 tab PO DAILY [facility] Last Admin: 08/21/18 09:08 Dose: 1 tab Tramadol HCl (Ultram) 25 mg PO TID PRN PRN Reason: Pain, severe (8-10) Last Admin: 08/10/18 21:57 Dose: 25 mg Zolpidem Tartrate (Ambien) 5 mg PO HS PRN PRN Reason: Insomnia Last Admin: 08/21/18 21:43 Dose: 5 mg - Labs Labs: 08/19/18 07:02 08/19/18 07:02 PT 12.6 SECONDS (9.7-12.2) H 07/27/18 07:05 INR 1.2 07/27/18 07:05 APTT 30 SECONDS (21-34) 07/27/18 07:05 - Constitutional Appears: Non-toxic, No Acute Distress - Head Exam Head Exam: ATRAUMATIC, NORMAL INSPECTION, NORMOCEPHALIC - Eye Exam Eye Exam: EOMI - ENT Exam ENT Exam: Mucous Membranes Moist, Normal Exam - Neck Exam Neck Exam: Full ROM - Respiratory Exam Respiratory Exam: Rhonchi. absent: Accessory Muscle Use, Respiratory Distress Additional comments: Nonrebreather mask in place - Cardiovascular Exam Cardiovascular Exam: Tachycardia, REGULAR RHYTHM, +S1, +S2 - GI/Abdominal Exam GI & Abdominal Exam: Soft, Normal Bowel Sounds. absent: Distended, Tenderness - Extremities Exam Extremities Exam: absent: Pedal Edema Additional comments: muscle wasting b/l LE - Back Exam Back Exam: NORMAL INSPECTION - Neurological Exam Neurological Exam: Alert, Awake, Oriented x3. absent: Normal Gait - Psychiatric Exam Psychiatric exam: Normal Affect, Normal Mood - Skin Skin Exam: Dry, Intact, Normal Color, Warm Assessment and Plan - Assessment and Plan (Free Text) Plan: Plan: Interstitial pulmonary fibrosis, On comfort care measures - poor prognosis - increased morphine drip @ 2mls/hr - continue NRB/NC as patient desires - Solumedrol 40mg IVP TID Pre-diabetes mellitus, chronic - as per comfort care, we will d/c the following: - Novolog 12U actid - Glargine 30U hs - ISS high dose ACHS - accuchecks ACHS - hypoglycemic protocol Insomnia, resolved - Ambien 5mg PO HS PRN for insomnia PPx, Diet, Disposition - no ppx, patient is now on comfort care - pain control with tylenol (mild pain), ibuprofen (moderate pain), Ultram (severe pain), morphine drip - Xanax 1mg po tid prn - Diet: dietary supplements: Ensure Enlive TID, MV daily, regular diet - palliative care consult - Hope Coleman - hospice consult -Comfort care would be the best care for this very sick patient, where cure is not an option -Would initiate Comfort Set Orders to alleviate symptoms and promote comfort - Pastoral care- consult for emotinal support, patient feeling hopeless and hopeful about his current condition - will follow up - PT consulted, and working with patient. He quickly becomes winded. Will work with him every other day. Dispo: Will continue to follow patient on his desires on keeping morphine drip at current rate or to be increased. will continue to follow with [facility] [place] on in hospital hospice care. <David Wellington - Last Filed: 08/22/18 12:15> Objective - Vital Signs/Intake and Output Vital Signs (last 24 hours): Temp Pulse Resp BP Pulse Ox 98.1 F 80 20 134/80 97 08/22/18 08:00 08/22/18 08:00 08/22/18 08:00 08/22/18 08:00 08/22/18 08:05 Intake and Output: 08/22/18 08/22/18 06:59 18:59 Intake Total 300 Balance 300 - Medications Medications: Current Medications Acetaminophen (Tylenol 325mg Tab) 650 mg PO Q6 PRN PRN Reason: Pain, Mild (1-3) Last Admin: 08/01/18 08:07 Dose: 650 mg Alprazolam (Xanax) 1 mg PO TID PRN PRN Reason: Anxiety Docusate Sodium (Colace) 100 mg PO BID PRN PRN Reason: constpation Guaifenesin/Dextromethorphan (Robitussin Dm) 5 ml PO Q4H PRN PRN Reason: Cough Last Admin: 08/16/18 09:18 Dose: 5 ml Morphine Sulfate 250 mg/ (Sodium Chloride) 250 mls @ 2 mls/hr IV .Q24H PRN; Protocol PRN Reason: comfort care/hospice Ibuprofen (Motrin Tab) 600 mg PO TID PRN PRN Reason: Pain, moderate (4-7) Last Admin: 08/14/18 21:36 Dose: 600 mg Methylprednisolone (Solu-Medrol) 40 mg IVP TID [facility] Last Admin: 08/22/18 10:21 Dose: 40 mg Multivitamins (Hexavitamin) 1 tab PO DAILY [facility] Last Admin: 08/22/18 10:21 Dose: 1 tab Tramadol HCl (Ultram) 25 mg PO TID PRN PRN Reason: Pain, severe (8-10) Last Admin: 08/10/18 21:57 Dose: 25 mg Zolpidem Tartrate (Ambien) 5 mg PO HS PRN PRN Reason: Insomnia Last Admin: 08/21/18 21:43 Dose: 5 mg - Labs Labs: 08/19/18 07:02 08/19/18 07:02 PT 12.6 SECONDS (9.7-12.2) H 07/27/18 07:05 INR 1.2 07/27/18 07:05 APTT 30 SECONDS (21-34) 07/27/18 07:05 Attending/Attestation - Attestation I have personally seen and examined this patient.: Yes I have fully participated in the care of the patient.: Yes I have reviewed all pertinent clinical information, including history, physical exam and plan: Yes Notes (Text): 08/22/18 12:14 Medical attending: Patient was seen and examined by me. Reviewed the above note by the resident The patient reported that he felt very comfortable on the morphine ggt and he was able to sleep. David Wellington
[2018-08-22] MEDS ORDERED: MethylPREDNISolone 40 mg Vial IVP SCH (10:00)
[2018-08-22] MEDS: Multiple Vitamins Tab PO SCH (10:21)
[2018-08-22] MEDS: MethylPREDNISolone 40 mg Vial IVP SCH ×3 (10:21→17:45)
--- NOTE | 2018-08-23 01:31 | CP.PCM.PN ---
<Adrian Tarango - Last Filed: 08/23/18 01:01> Subjective - Date & Time of Evaluation Date of Evaluation: 08/23/18 Time of Evaluation: 06:00 - Subjective Subjective: PGy-[address] David Wellington service Patient is seen and examined at bedside. Patient reports no acute changes overnight, patient continues to have unchanged shortness of breath, reports morphine drip to help him feel better and to sleep better at nightime. Patient continues to eat regularly and is having bowel movements. Patient denies fever, chills, chest pain, shortness of breath, diarrhea, constipation, nausea or vomiting or urinary symptoms. Objective - Vital Signs/Intake and Output Vital Signs (last 24 hours): Temp Pulse Resp BP Pulse Ox 98 F 109 H 20 118/80 98 08/22/18 23:44 08/22/18 23:44 08/22/18 23:44 08/22/18 23:44 08/22/18 23:44 Intake and Output: 08/22/18 08/23/18 18:59 06:59 Intake Total 508 Balance 508 - Medications Medications: Current Medications Acetaminophen (Tylenol 325mg Tab) 650 mg PO Q6 PRN PRN Reason: Pain, Mild (1-3) Last Admin: 08/01/18 08:07 Dose: 650 mg Alprazolam (Xanax) 1 mg PO TID PRN PRN Reason: Anxiety Docusate Sodium (Colace) 100 mg PO BID PRN PRN Reason: constpation Guaifenesin/Dextromethorphan (Robitussin Dm) 5 ml PO Q4H PRN PRN Reason: Cough Last Admin: 08/16/18 09:18 Dose: 5 ml Morphine Sulfate 250 mg/ (Sodium Chloride) 250 mls @ 2 mls/hr IV .Q24H PRN; Protocol PRN Reason: comfort care/hospice Ibuprofen (Motrin Tab) 600 mg PO TID PRN PRN Reason: Pain, moderate (4-7) Last Admin: 08/14/18 21:36 Dose: 600 mg Methylprednisolone (Solu-Medrol) 40 mg IVP TID [facility] Last Admin: 08/22/18 17:45 Dose: 40 mg Multivitamins (Hexavitamin) 1 tab PO DAILY [facility] Last Admin: 08/22/18 10:21 Dose: 1 tab Tramadol HCl (Ultram) 25 mg PO TID PRN PRN Reason: Pain, severe (8-10) Last Admin: 08/10/18 21:57 Dose: 25 mg Zolpidem Tartrate (Ambien) 5 mg PO HS PRN PRN Reason: Insomnia Last Admin: 08/22/18 21:59 Dose: 5 mg - Labs Labs: 08/19/18 07:02 08/19/18 07:02 PT 12.6 SECONDS (9.7-12.2) H 07/27/18 07:05 INR 1.2 07/27/18 07:05 APTT 30 SECONDS (21-34) 07/27/18 07:05 - Constitutional Appears: Non-toxic, No Acute Distress, Chronically Ill - Head Exam Head Exam: ATRAUMATIC, NORMAL INSPECTION, NORMOCEPHALIC - Eye Exam Eye Exam: EOMI, Normal appearance - ENT Exam ENT Exam: Mucous Membranes Moist, Normal Exam - Neck Exam Neck Exam: Full ROM - Respiratory Exam Respiratory Exam: Rales. absent: Accessory Muscle Use, Respiratory Distress - Cardiovascular Exam Cardiovascular Exam: Tachycardia, REGULAR RHYTHM, +S1, +S2 - GI/Abdominal Exam GI & Abdominal Exam: Soft, Normal Bowel Sounds. absent: Tenderness - Extremities Exam Extremities Exam: absent: Calf Tenderness, Pedal Edema Additional comments: muscle wasting b/l LE - Neurological Exam Neurological Exam: Alert, Awake, Oriented x3 - Psychiatric Exam Psychiatric exam: Normal Affect, Normal Mood - Skin Skin Exam: Dry, Intact, Normal Color, Warm Assessment and Plan - Assessment and Plan (Free Text) Plan: Interstitial pulmonary fibrosis, On comfort care measures - poor prognosis - morphine drip @ 2mls/hr - continue NRB/NC as patient desires - Solumedrol 40mg IVP TID Pre-diabetes mellitus, chronic - as per comfort care, we will d/c the following: - Novolog 12U actid - Glargine 30U hs - ISS high dose ACHS - accuchecks ACHS - hypoglycemic protocol Insomnia, resolved - Ambien 5mg PO HS PRN for insomnia PPx, Diet, Disposition - no ppx, patient is now on comfort care - pain control with tylenol (mild pain), ibuprofen (moderate pain), Ultram (severe pain), morphine drip - Xanax 1mg po tid prn - Diet: dietary supplements: Ensure Enlive TID, MV daily, regular diet - palliative care consult - [facility] Coleman - hospice consult -Comfort care would be the best care for this very sick patient, where cure is not an option -Would initiate Comfort Set Orders to alleviate symptoms and promote co mfort - Pastoral care- consult for emotinal support, patient feeling hopeless and hopeful about his current condition - will follow up - PT consulted, and working with patient. He quickly becomes winded. Will work with him every other day. Dispo: Will continue to follow patient on his desires on keeping morphine drip at current rate or to be increased. will continue to follow with [facility] [place] on in hospital hospice care. <David Wellington H - Last Filed: 08/23/18 11:31> Objective - Vital Signs/Intake and Output Vital Signs (last 24 hours): Temp Pulse Resp BP Pulse Ox 97.3 F L 121 H 20 129/82 97 08/23/18 08:00 08/23/18 08:00 08/23/18 08:00 08/23/18 08:00 08/23/18 08:00 Intake and Output: 08/23/18 08/23/18 06:59 18:59 Intake Total 408 Output Total 1 Balance 407 - Medications Medications: Current Medications Acetaminophen (Tylenol 325mg Tab) 650 mg PO Q6 PRN PRN Reason: Pain, Mild (1-3) Last Admin: 08/01/18 08:07 Dose: 650 mg Alprazolam (Xanax) 1 mg PO TID PRN PRN Reason: Anxiety Docusate Sodium (Colace) 100 mg PO BID PRN PRN Reason: constpation Guaifenesin/Dextromethorphan (Robitussin Dm) 5 ml PO Q4H PRN PRN Reason: Cough Last Admin: 08/16/18 09:18 Dose: 5 ml Morphine Sulfate 250 mg/ (Sodium Chloride) 250 mls @ 2 mls/hr IV .Q24H PRN; Protocol PRN Reason: comfort care/hospice Ibuprofen (Motrin Tab) 600 mg PO TID PRN PRN Reason: Pain, moderate (4-7) Last Admin: 08/14/18 21:36 Dose: 600 mg Methylprednisolone (Solu-Medrol) 40 mg IVP TID [facility] Last Admin: 08/23/18 10:45 Dose: 40 mg Multivitamins (Hexavitamin) 1 tab PO DAILY [facility] Last Admin: 08/23/18 10:45 Dose: 1 tab Tramadol HCl (Ultram) 25 mg PO TID PRN PRN Reason: Pain, severe (8-10) Last Admin: 08/10/18 21:57 Dose: 25 mg Zolpidem Tartrate (Ambien) 5 mg PO HS PRN PRN Reason: Insomnia Last Admin: 08/22/18 21:59 Dose: 5 mg - Labs Labs: 08/19/18 07:02 08/19/18 07:02 PT 12.6 SECONDS (9.7-12.2) H 07/27/18 07:05 INR 1.2 07/27/18 07:05 APTT 30 SECONDS (21-34) 07/27/18 07:05 Attending/Attestation - Attestation I have personally seen and examined this patient.: Yes I have fully participated in the care of the patient.: Yes I have reviewed all pertinent clinical information, including history, physical exam and plan: Yes Notes (Text): 08/23/18 11:30 Medical attending: Patient was seen and examined by me. Agree with the above note by the resident Patient reports he felt a lot better on the morphine ggt. He is eating well he said. Denied pain. The breathing is much better on the morphine ggt David Wellington
[2018-08-23] MEDS: MethylPREDNISolone 40 mg Vial IVP SCH ×3 (10:45→17:27)
[2018-08-23] MEDS: Multiple Vitamins Tab PO SCH (10:45)
[2018-08-23 23:37] VITALS: RESP 20
--- NOTE | 2018-08-24 07:14 | CP.PCM.PN ---
<Brandie Varela - Last Filed: 08/24/18 14:03> Subjective - Date & Time of Evaluation Date of Evaluation: 08/24/18 Time of Evaluation: 07:14 - Subjective Subjective: PGY-1 Brandie Varela D.O. Medicine progress note for Dr. Ragsdale's service: Patient was seen and examined this morning. He is inpatient hospice care. He is eating breakfast. He appears comfortable on nasal cannula but is unable to speak full sentences without taking a deep breath. He states nothing has really changed; he feels the same. He still prefers to use nonrebreather. His physical functioning is declining as he is no longer able to stand or sit up independently. He is eating and sleeping well. Objective - Vital Signs/Intake and Output Vital Signs (last 24 hours): Temp Pulse Resp BP Pulse Ox 98 F 116 H 20 130/93 H 99 08/23/18 23:33 08/23/18 23:33 08/23/18 23:33 08/23/18 23:33 08/23/18 23:33 - Medications Medications: Current Medications Acetaminophen (Tylenol 325mg Tab) 650 mg PO Q6 PRN PRN Reason: Pain, Mild (1-3) Last Admin: 08/01/18 08:07 Dose: 650 mg Alprazolam (Xanax) 1 mg PO TID PRN PRN Reason: Anxiety Docusate Sodium (Colace) 100 mg PO BID PRN PRN Reason: constpation Guaifenesin/Dextromethorphan (Robitussin Dm) 5 ml PO Q4H PRN PRN Reason: Cough Last Admin: 08/16/18 09:18 Dose: 5 ml Morphine Sulfate 250 mg/ (Sodium Chloride) 250 mls @ 2 mls/hr IV .Q24H PRN; Protocol PRN Reason: comfort care/hospice Ibuprofen (Motrin Tab) 600 mg PO TID PRN PRN Reason: Pain, moderate (4-7) Last Admin: 08/14/18 21:36 Dose: 600 mg Methylprednisolone (Solu-Medrol) 40 mg IVP TID [facility] Last Admin: 08/23/18 17:27 Dose: 40 mg Multivitamins (Hexavitamin) 1 tab PO DAILY [facility] Last Admin: 08/23/18 10:45 Dose: 1 tab Tramadol HCl (Ultram) 25 mg PO TID PRN PRN Reason: Pain, severe (8-10) Last Admin: 08/10/18 21:57 Dose: 25 mg Zolpidem Tartrate (Ambien) 5 mg PO HS PRN PRN Reason: Insomnia Last Admin: 08/23/18 21:19 Dose: 5 mg - Labs Labs: 08/19/18 07:02 08/19/18 07:02 PT 12.6 SECONDS (9.7-12.2) H 07/27/18 07:05 INR 1.2 07/27/18 07:05 APTT 30 SECONDS (21-34) 07/27/18 07:05 - Constitutional Appears: No Acute Distress, Unkempt, Chronically Ill - Head Exam Head Exam: ATRAUMATIC, NORMAL INSPECTION - Eye Exam Eye Exam: EOMI, Normal appearance - ENT Exam ENT Exam: Mucous Membranes Moist - Neck Exam Neck Exam: Normal Inspection - Respiratory Exam Respiratory Exam: Decreased Breath Sounds, Rales, NORMAL BREATHING PATTERN. absent: Clear to Ausculation Bilateral, Respiratory Distress - Cardiovascular Exam Cardiovascular Exam: Tachycardia, REGULAR RHYTHM - GI/Abdominal Exam GI & Abdominal Exam: Soft. absent: Distended, Tenderness - Extremities Exam Extremities Exam: absent: Pedal Edema, Tenderness Additional comments: atrophy - Neurological Exam Neurological Exam: Alert, Awake, CN II-XII Intact, Oriented x3 - Psychiatric Exam Psychiatric exam: Flat Affect - Skin Skin Exam: Dry, Normal Color, Warm Assessment and Plan - Assessment and Plan (Free Text) Assessment: Patient is a 63 yo [place] male with a history of pre-DM and hypotension not on any meds who presented to ED with SOB, cough, and weakness. Patient has a significant smoking history- 20 pk yrs and quit 1 month ago. 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 Imaging shows extensive interstitial pulmonary disease as well as pancreatic head abnormalities. Multiple tumor markers elevated. Consulted GI who did pancreas CT- rec follow-up imaging as outpatient. TB was ruled out and patient taken off of airborne isolation. S/p bronchoscopy with Bx 07/15- no malignancy identified. Bx sent to [place] who reported organized diffuse alveolar damage. Originally scheduled for a wedge Bx but cancelled due to increased respiratory distress and hypoxia. Patient alternates between nonrebreather and NC. Patient decided on comfort care on 08/20/18. He is now on morphine drip. No longer requires labs or vitals. Plan: Interstitial pulmonary fibrosis, worsening- suspect due to smoking and/or exposures, r/o cancer, r/o TB Comfort care only - BiPAP, nonrebreather, NC PRN - Afebrile Imaging - CT head: no acute findings - CTA head/neck: no significant stenoses or abnormalities - CXR: peripheral interstitial and to lesser extent confluent changes bilaterally likely chronic in nature - CT chest: Findings consistent with diffuse significant interstitial fibrosis with what probably represents paraseptal emphysematous changes and bronchiectasis. There are scattered areas of confluent and ground-glass opacities. Calcified granuloma right lung base. There are mildly enlarged paratracheal and subcarinal lymph nodes - Echo: EF 70%, no diastolic dysfunction, mild-mod TR, mild-mod pulm HTN (44 mmHg), no pericardial effusion Labs - Ruled out TB- off isolation - UDS negative - HIV, rapid flu, Mycoplasma negative - ProBNP 1540 - ESR 106 - Trop negative x2 - PAULO, SRP Ab negative - Blood Cx no growth - Sputum Cx: yeast species - Bronchial Cx: Ramonita albicans - Bronchoscopy Bx: fibrosis, acute inflammation, emphysematous changes - Bronchoscopy washings: no malignant cells Meds - Solumedrol 40mg IVP daily - Robitussin DM 5 mL PO Q4H PRN - Tylenol 650 mg PO Q6H PRN - Ibuprofen 600 mg PO TID PRN - Tramadol 25 mg PO TID PRN - Xanax 1 mg PO TID PRN - Ativan 1 mg IV Q6H PRN - Ambien 5 mg PO QHS PRN - Morphine drip 4 mL/hr- increase as needed for comfort Consults - ICU consulted- does not require critical care at this time - Pulmonology consulted (Chuy)- NC as tolerated, bronchoscopy 07/15 - CT surgery consulted (Adriano)- wedge Bx scheduled for 07/28 but cancelled due to hypoxia, resp distress - Palliative consulted- comfort care only - PT/OT Pre-diabetes mellitus, chronic - A1c 5.5 - No Accuchecks or insulin Acute sick euthyroid syndrome - TSH low (0.05, 0.17)- suppression exacerbated by IV steroids - Free T4 wnl/low (1.37, 0.76), tot T4 low (3.24, 3.22), T3 wnl (2.89) - Thyroid Abs negative - Endocrinology consulted (Cam)- serial labs - No further labs Pancreatic abnormality - Recent weight loss - CT A/P: Question enlargement of the pancreatic head/uncinate process. It is unclear if this finding is the results of edematous pancreas/mass or collapsed adjacent duodenum which is difficult to distinguish. Recommend follow-up pancreatic CT for further assessment. - Pancreatic CT: Prominence of pancreatic head without discrete mass, likely reflects normal tissue. Recommend f/u in 3-6 months. - CEA elevated (6.3), CA 19-9 elevated (215), CA 125 elevated (46.8), AFP wnl (1.4) - GI consulted (Venessa)- repeat imaging as outpatient - No further imaging Ppx: VTE: SCDs GI: not indicated Diet: regular Dietary supplements: Ensure Enlive TID, MV daily Code status: DNI/DNR (comfort care) Palliative consulted- Hospice eval but patient does not qualify Case was discussed with attending, Dr. Ragsdale. <Aj Ragsdale - Last Filed: 08/24/18 18:37> Objective - Vital Signs/Intake and Output Vital Signs (last 24 hours): Temp Pulse Resp BP Pulse Ox 98.7 F 66 20 128/89 97 08/24/18 07:49 08/24/18 07:49 08/24/18 07:49 08/24/18 07:49 08/24/18 07:49 Intake and Output: 08/24/18 08/24/18 06:59 18:59 Intake Total 638 Output Total 400 Balance 238 - Medications Medications: Current Medications Acetaminophen (Tylenol 325mg Tab) 650 mg PO Q6 PRN PRN Reason: Pain, Mild (1-3) Last Admin: 08/01/18 08:07 Dose: 650 mg Alprazolam (Xanax) 1 mg PO TID PRN PRN Reason: Anxiety Docusate Sodium (Colace) 100 mg PO BID PRN PRN Reason: constpation Guaifenesin/Dextromethorphan (Robitussin Dm) 5 ml PO Q4H PRN PRN Reason: Cough Last Admin: 08/24/18 09:18 Dose: 5 ml Morphine Sulfate 250 mg/ (Sodium Chloride) 250 mls @ 4 mls/hr IV .Q24H PRN; Protocol PRN Reason: comfort care/hospice Last Admin: 08/24/18 14:47 Dose: 4 mg/hr, 4 mls/hr Ibuprofen (Motrin Tab) 600 mg PO TID PRN PRN Reason: Pain, moderate (4-7) Last Admin: 08/14/18 21:36 Dose: 600 mg Insulin Glargine (Lantus) 20 unit SC ONCE ONE Stop: 08/24/18 18:35 Insulin Human Regular (Novolin R) 10 unit SC STAT ONE Stop: 08/24/18 18:33 Lorazepam (Ativan) 1 mg IVP Q6H PRN PRN Reason: Agitation Methylprednisolone (Solu-Medrol) 40 mg IVP DAILY [facility] Multivitamins (Hexavitamin) 1 tab PO DAILY [facility] Last Admin: 08/24/18 09:18 Dose: 1 tab Tramadol HCl (Ultram) 25 mg PO TID PRN PRN Reason: Pain, severe (8-10) Last Admin: 08/10/18 21:57 Dose: 25 mg Zolpidem Tartrate (Ambien) 5 mg PO HS PRN PRN Reason: Insomnia Last Admin: 08/23/18 21:19 Dose: 5 mg - Labs Labs: 08/19/18 07:02 08/19/18 07:02 PT 12.6 SECONDS (9.7-12.2) H 07/27/18 07:05 INR 1.2 07/27/18 07:05 APTT 30 SECONDS (21-34) 07/27/18 07:05 Attending/Attestation - Attestation I have personally seen and examined this patient.: Yes I have fully participated in the care of the patient.: Yes I have reviewed all pertinent clinical information, including history, physical exam and plan: Yes Notes (Text): seen this afternoon. patient was sob and awake.on 100% non rebreather Denies pain his sugar is high. insulin ordered we will increase his morphine drip. Terminally sick
[2018-08-24] MEDS ORDERED: Dextrose 50% SYRINGE Inj (50 ml) IV PRN (08:55)
[2018-08-24] MEDS ORDERED: Glucagon Recombinant 1 mg Inj IM PRN (08:55)
[2018-08-24] MEDS: guaiFENesin DM 100 mg-10 mg/5 ml UD PO PRN (09:18)
[2018-08-24] MEDS: MethylPREDNISolone 40 mg Vial IVP SCH (09:18)
[2018-08-24] MEDS: Multiple Vitamins Tab PO SCH (09:18)
[2018-08-24] MEDS ORDERED: (Novolin R) Insulin Human Regular 100 units/ml vial SC SCH (11:30)
[2018-08-24] MEDS ORDERED: (Novolin R) Insulin Human Regular 100 units/ml vial SC ONE ×2 (18:32→21:00)
[2018-08-24] MEDS ORDERED: (Lantus) Insulin Glargine, Recombinant SC ONE ×2 (18:34→21:00)
--- NOTE | 2018-08-25 07:03 | CP.PCM.PN ---
Subjective - Date & Time of Evaluation Date of Evaluation: 08/25/18 Time of Evaluation: 07:02 - Subjective Subjective: PGY-1 Brandie Varela D.O. Medicine progress note for Dr. Ragsdale's service: Patient was seen and examined this morning. He is comfort care only and on morphine drip. He is no arousable. Noted to have shallow breathing. Objective - Vital Signs/Intake and Output Vital Signs (last 24 hours): Temp Pulse Resp BP Pulse Ox 98.7 F 66 20 128/89 97 08/24/18 07:49 08/24/18 07:49 08/24/18 07:49 08/24/18 07:49 08/24/18 07:49 Intake and Output: 08/25/18 08/25/18 06:59 18:59 Intake Total 132 Balance 132 - Medications Medications: Current Medications Acetaminophen (Tylenol 325mg Tab) 650 mg PO Q6 PRN PRN Reason: Pain, Mild (1-3) Last Admin: 08/01/18 08:07 Dose: 650 mg Alprazolam (Xanax) 1 mg PO TID PRN PRN Reason: Anxiety Docusate Sodium (Colace) 100 mg PO BID PRN PRN Reason: constpation Guaifenesin/Dextromethorphan (Robitussin Dm) 5 ml PO Q4H PRN PRN Reason: Cough Last Admin: 08/24/18 09:18 Dose: 5 ml Morphine Sulfate 250 mg/ (Sodium Chloride) 250 mls @ 4 mls/hr IV .Q24H PRN; Protocol PRN Reason: comfort care/hospice Last Admin: 08/24/18 14:47 Dose: 4 mg/hr, 4 mls/hr Ibuprofen (Motrin Tab) 600 mg PO TID PRN PRN Reason: Pain, moderate (4-7) Last Admin: 08/14/18 21:36 Dose: 600 mg Lorazepam (Ativan) 1 mg IVP Q6H PRN PRN Reason: Agitation Methylprednisolone (Solu-Medrol) 40 mg IVP DAILY SPEEDY Multivitamins (Hexavitamin) 1 tab PO DAILY SPEEDY Last Admin: 08/24/18 09:18 Dose: 1 tab Tramadol HCl (Ultram) 25 mg PO TID PRN PRN Reason: Pain, severe (8-10) Last Admin: 08/10/18 21:57 Dose: 25 mg Zolpidem Tartrate (Ambien) 5 mg PO HS PRN PRN Reason: Insomnia Last Admin: 08/23/18 21:19 Dose: 5 mg - Labs Labs: 08/19/18 07:02 08/19/18 07:02 PT 12.6 SECONDS (9.7-12.2) H 07/27/18 07:05 INR 1.2 07/27/18 07:05 APTT 30 SECONDS (21-34) 07/27/18 07:05 - Additional Findings Additional findings: - Constitutional Appears: No Acute Distress, Unkempt, Chronically Ill - Head Exam Head Exam: ATRAUMATIC, NORMAL INSPECTION - ENT Exam ENT Exam: Mucous Membranes Moist - Neck Exam Neck Exam: Normal Inspection - Respiratory Exam Respiratory Exam: Decreased Breath Sounds, Rales, absent: Clear to Ausculation Bilateral, Respiratory Distress nonrebreather, shallow/agonal breathing - Cardiovascular Exam Cardiovascular Exam: Tachycardia, REGULAR RHYTHM - GI/Abdominal Exam GI & Abdominal Exam: Soft. absent: Distended - Extremities Exam Extremities Exam: absent: Pedal Edema, Tenderness Additional comments: atrophy - Neurological Exam Neurological Exam: Not alert - Skin Skin Exam: Dry, Normal Color, Warm Assessment and Plan - Assessment and Plan (Free Text) Assessment: Patient is a 63 yo [place] male with a history of pre-DM and hypotension not on any meds who presented to ED with SOB, cough, and weakness. Patient has a significant smoking history- 20 pk yrs and quit 1 month ago. 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 Imaging shows extensive interstitial pulmonary disease as well as pancreatic head abnormalities. Multiple tumor markers elevated. Consulted GI who did pancreas CT- rec follow-up imaging as outpatient. TB was ruled out and patient taken off of airborne isolation. S/p bronchoscopy with Bx 07/15- no malignancy identified. Bx sent to [place] who reported organized diffuse alveolar damage. Originally scheduled for a wedge Bx but cancelled due to increased respiratory distress and hypoxia. Patient alternates between nonrebreather and NC. Patient decided on comfort care on 08/20/18. He is now on morphine drip. No longer requires labs or vitals. Plan: Interstitial pulmonary fibrosis, worsening- suspect due to smoking and/or exposures, r/o cancer, r/o TB Comfort care only - BiPAP, nonrebreather, NC PRN - Afebrile Imaging - CT head: no acute findings - CTA head/neck: no significant stenoses or abnormalities - CXR: peripheral interstitial and to lesser extent confluent changes bilaterally likely chronic in nature - CT chest: Findings consistent with diffuse significant interstitial fibrosis with what probably represents paraseptal emphysematous changes and bronchiectasis. There are scattered areas of confluent and ground-glass opacities. Calcified granuloma right lung base. There are mildly enlarged paratracheal and subcarinal lymph nodes - Echo: EF 70%, no diastolic dysfunction, mild-mod TR, mild-mod pulm HTN (44 mmHg), no pericardial effusion Labs - Ruled out TB - UDS negative - HIV, rapid flu, Mycoplasma negative - ProBNP 1540 - ESR 106 - Trop negative x2 - PAULO, SRP Ab negative - Blood Cx no growth - Sputum Cx: yeast species - Bronchial Cx: Ramonita albicans - Bronchoscopy Bx: fibrosis, acute inflammation, emphysematous changes - Bronchoscopy washings: no malignant cells Meds - Solumedrol 40mg IVP daily - Robitussin DM 5 mL PO Q4H PRN - Tylenol 650 mg PO Q6H PRN - Ibuprofen 600 mg PO TID PRN - Tramadol 25 mg PO TID PRN - Xanax 1 mg PO TID PRN - Ativan 1 mg IV Q6H PRN - Ambien 5 mg PO QHS PRN - Morphine drip 4 mL/hr- increase as needed for comfort Consults - ICU consulted- does not require critical care at this time - Pulmonology consulted (Chuy)- NC as tolerated, bronchoscopy 07/15 - CT surgery consulted (Adriano)- wedge Bx scheduled for 07/28 but cancelled due to hypoxia, resp distress - Palliative consulted- comfort care only - PT/OT Pre-diabetes mellitus, chronic - A1c 5.5 - No Accuchecks or insulin Acute sick euthyroid syndrome - TSH low (0.05, 0.17)- suppression exacerbated by IV steroids - Free T4 wnl/low (1.37, 0.76), tot T4 low (3.24, 3.22), T3 wnl (2.89) - Thyroid Abs negative - Endocrinology consulted (Cam)- rec serial labs - No further labs Pancreatic abnormality - Recent weight loss - CT A/P: Question enlargement of the pancreatic head/uncinate process. It is unclear if this finding is the results of edematous pancreas/mass or collapsed adjacent duodenum which is difficult to distinguish. Recommend follow-up pancreatic CT for further assessment. - Pancreatic CT: Prominence of pancreatic head without discrete mass, likely reflects normal tissue. Recommend f/u in 3-6 months. - CEA elevated (6.3), CA 19-9 elevated (215), CA 125 elevated (46.8), AFP wnl (1.4) - GI consulted (Venessa)- rec repeat imaging as outpatient - No further imaging Ppx: VTE: SCDs GI: not indicated Diet: regular Dietary supplements: Ensure Enlive TID, MV daily Code status: DNI/DNR (comfort care) Palliative consulted- Hospice eval but patient does not qualify Case was discussed with attending, Dr. Ragsdale.
[2018-08-25] MEDS: Multiple Vitamins Tab PO SCH (09:20)
[2018-08-25] MEDS ORDERED: MethylPREDNISolone 40 mg Vial IVP SCH (10:00)
[2018-08-25 11:47] VITALS: BP 64/42; PULSE 138; TEMP 97.5; O2SAT 93
--- NOTE | 2018-08-25 15:38 | CP.PCM.PRO ---
Pronouncement of Note - Clinical Findings Physical Exam: No Response Verbal/Painful Stimuli, Absent Peripheral Puls es{Carotid & Femoral}, Absent Heart & Breath Sounds, No Pupillary Light Reflex, No Corneal Reflex, Pupils Fixed & Dilated, Absence of Vital Signs - Pronouncement Time Time of Pronouncement of : 15:23 - Notifications Pronouncement Notifications: Atending Notified Funnel Setter Notified: No - Autopsy Autopsy Requested: No - [place] [id number]
--- NOTE | 2018-08-25 19:51 | CP.PCM.DIS ---
Provider - Provider Date of Admission: 07/08/18 18:24 Attending physician: Aj Ragsdale MD Primary care physician: none Consults: 08/18/18 12:07 Palliative Care Consult Routine Comment: Consulting Provider: Jocelyn Coleman Physician Instructions: Reason For Exam: Hospice discussion 08/18/18 12:08 Pastoral Care Referral Routine Comment: Physician Instructions: pt feels hopeless and hopeful at times Reason For Exam: emotional support for poor prognosis 07/08/18 21:17 Critical Care Consult Routine Comment: Consulting Provider: Noble Hoffman Consulting Physician: Noble Hoffman Reason for Consult: tachypnea with white count 07/08/18 21:26 Physician Consult Routine Comment: Consulting Provider: Nahun Vera Consulting Physician: Nahun Vera Reason for Consult: pulm fibrosis, tachypnea 07/11/18 14:00 Endocrinology Consult Routine Comment: Consulting Provider: Martine Ang Consulting Physician: Martine Ang Reason for Consult: thyroid hormones abnormal 07/11/18 15:00 Physician Consult Routine Comment: Consulting Provider: Justin Steele Consulting Physician: Justin Steele Reason for Consult: lung Bx 07/12/18 09:20 Gastroenterology Consult Routine Comment: Consulting Provider: Joaquin Clifford Consulting Physician: Joaquin Clifford Reason for Consult: pancreatic head abnormality on CT 07/18/18 18:04 Physician Consult Routine Comment: Consulting Provider: Justice Ritter Consulting Physician: Justice Ritter Reason for Consult: S/P Bronchoscopy positive yeast,possible bronchectasis 07/19/18 18:30 Social Work Referral Routine Comment: discharge planning Physician Instructions: Reason For Exam: discharge planning 07/22/18 12:46 Physician Consult Routine Comment: Consulting Provider: Marco A Oh Consulting Physician: Marco A Oh Reason for Consult: bronch revealing pulmonary fibrosis Additional Comments: recommend for wedge biopsy by pulm for further characterizaition 07/28/18 10:28 Palliative Care Consult Routine Comment: Consulting Provider: Jocelyn Coleman Physician Instructions: Reason For Exam: Chronic lung disease, advance directive Time Spent in preparation of Discharge (in minutes): 45 Diagnosis - Discharge Diagnosis (1) Interstitial pulmonary fibrosis Status: Chronic Priority: High Hospital Course - Lab Results Lab Results: Micro Results 07/12/18 17:33 Other: Please Indicate Mycobacterial Culture - Final 07/16/18 11:05 Other: Please Indicate Mycobacterial Culture - Preliminary 07/08/18 19:52 Other: Please Indicate Mycobacterial Culture - Final 07/15/18 11:13 Other: Please Indicate Mycobacterial Culture - Preliminary 07/14/18 07:50 Other: Please Indicate Mycobacterial Culture - Preliminary 07/16/18 11:05 Bronchial Washings Bronchial Culture - Final Ramonita Albicans 07/16/18 11:05 Bronchial Washings Fungal Culture - Final Ramonita Albicans 07/08/18 08:11 Blood Blood Culture - Final NO GROWTH AFTER 5 DAYS 07/08/18 08:11 Blood Gram Stain - Final TEST NOT PERFORMED 07/08/18 17:36 Blood Blood Culture - Final NO GROWTH AFTER 5 DAYS 07/08/18 17:36 Blood Gram Stain - Final TEST NOT PERFORMED 07/10/18 18:21 Sputum Gram Stain - Final 07/10/18 18:21 Sputum Sputum Culture - Final Yeast Species 07/09/18 06:25 Urine Urine Culture - Final No Growth (<1,000 CFU/ML) Most Recent Lab Values WBC 7.1 K/uL (4.8-10.8) 08/19/18 07:02 RBC 4.38 Mil/uL (4.40-5.90) L 08/19/18 07:02 Hgb 13.9 g/dL (12.0-18.0) 08/19/18 07:02 Hct 41.7 % (35.0-51.0) 08/19/18 07:02 MCV 95.2 fL (80.0-94.0) H 08/19/18 07:02 MCH 31.7 pg (27.0-31.0) H 08/19/18 07:02 MCHC 33.3 g/dL (33.0-37.0) 08/19/18 07:02 RDW 16.4 % (11.5-14.5) H 08/19/18 07:02 Plt Count 119 K/uL (130-400) L 08/19/18 07:02 MPV 9.1 fL (7.2-11.7) 08/19/18 07:02 Neut % (Auto) 90.3 % (50.0-75.0) H 08/19/18 07:02 Lymph % (Auto) 5.6 % (20.0-40.0) L 08/19/18 07:02 Starke % (Auto) 3.5 % (0.0-10.0) 08/19/18 07:02 Eos % (Auto) 0.1 % (0.0-4.0) 08/19/18 07:02 Baso % (Auto) 0.5 % (0.0-2.0) 08/19/18 07:02 Neut # (Auto) 6.4 K/uL (1.8-7.0) 08/19/18 07:02 Lymph # (Auto) 0.4 K/uL (1.0-4.3) L 08/19/18 07:02 Starke # (Auto) 0.2 K/uL (0.0-0.8) 08/19/18 07:02 Eos # (Auto) 0.0 K/uL (0.0-0.7) 08/19/18 07:02 Baso # (Auto) 0.0 K/uL (0.0-0.2) 08/19/18 07:02 Neutrophils % (Manual) 88 % (50-75) H 08/19/18 07:02 Band Neutrophils % 3 % (0-2) H 08/19/18 07:02 Lymphocytes % (Manual) 5 % (20-40) L 08/19/18 07:02 Reactive Lymphs % 1 % (0-0) H 08/19/18 07:02 Monocytes % (Manual) 3 % (0-10) 08/19/18 07:02 Nucleated RBC % 1 % (0-0) H 08/10/18 07:14 Toxic Granulation Present 08/01/18 07:04 Platelet Estimate Slightly decreased (NORMAL) L 08/19/18 07:02 Large Platelets Present 08/13/18 06:53 Giant Platelets Present 08/01/18 07:04 RBC Morphology Normal 08/10/18 07:14 Polychromasia Slight 07/25/18 07:21 Hypochromasia (manual) Slight 07/22/18 06:25 Anisocytosis (manual) Slight 08/16/18 09:31 Macrocytosis (manual) Slight 08/02/18 08:14 Target Cells Slight 07/22/18 06:25 Ovalocytes Slight 08/02/18 08:14 Stomatocytes Moderate 08/16/18 09:31 ESR 106 mm/hr (0-15) H 07/10/18 17:04 PT 12.6 SECONDS (9.7-12.2) H 07/27/18 07:05 INR 1.2 07/27/18 07:05 APTT 30 SECONDS (21-34) 07/27/18 07:05 Puncture Site Rb 07/16/18 21:30 pCO2 59 mm/Hg (35-45) H 07/16/18 21:30 pO2 173 mm/Hg (80-100) H 07/16/18 21:30 HCO3 32.4 mmol/L (21-28) H 07/16/18 21:30 ABG pH 7.40 (7.35-7.45) 07/16/18 21:30 ABG Total CO2 38.3 mmol/L (22-28) H 07/16/18 21:30 ABG O2 Saturation 98.6 % (95-98) H 07/16/18 21:30 ABG Base Excess 9.5 mmol/L (-2.0-3.0) H 07/16/18 21:30 ABG Hemoglobin 14.5 g/dL (11.7-17.4) 07/08/18 23:00 ABG Carboxyhemoglobin 1.1 % (0.5-1.5) 07/08/18 23:00 POC ABG HHb (Measured) 1.4 % (0.0-5.0) 07/08/18 23:00 ABG Methemoglobin 0.9 % (0.0-3.0) 07/08/18 23:00 Ron Test Yes 07/16/18 21:30 ABG Potassium 4.5 mmol/L (3.6-5.2) 07/16/18 21:30 VBG pH 7.39 (7.32-7.43) 07/08/18 18:19 VBG pCO2 48 mmHg (40-60) 07/08/18 18:19 VBG HCO3 26.3 mmol/L 07/08/18 18:19 VBG Total CO2 30.6 mmol/L (22-28) H 07/08/18 18:19 VBG O2 Sat (Calc) 56.3 % (40-65) 07/08/18 18:19 VBG Base Excess 3.3 mmol/L (0.0-2.0) H 07/08/18 18:19 VBG Potassium 4.2 mmol/L (3.6-5.2) 07/08/18 18:19 A-a O2 Difference 466.0 mm/Hg 07/16/18 21:30 Respiratory Index 2.7 07/16/18 21:30 Hgb O2 Saturation 96.6 % (95.0-98.0) 07/08/18 23:00 Sodium 135.0 mmol/l (132-148) 07/16/18 21:30 Chloride 101.0 mmol/L (98-107) 07/16/18 21:30 Glucose 260 mg/dl (75-110) H 07/16/18 21:30 Lactate 3.6 mmol/L (0.7-2.1) H 07/16/18 21:30 Vent Mode Bipap 07/08/18 23:00 Mechanical Rate 12 07/08/18 23:00 FiO2 100.0 % 07/16/18 21:30 Inspiratory BiPAP 12 07/08/18 23:00 Expiratory BiPAP 6 07/08/18 23:00 Sodium 135 mmol/L (132-148) 08/19/18 07:02 Potassium 4.9 mmol/L (3.6-5.2) 08/19/18 07:02 Chloride 90 mmol/L (98-107) L 08/19/18 07:02 Carbon Dioxide 42 mmol/L (22-30) H* 08/19/18 07:02 Anion Gap 8 (10-20) L 08/19/18 07:02 BUN 30 mg/dL (9-20) H 08/19/18 07:02 Creatinine 0.5 mg/dL (0.8-1.5) L 08/19/18 07:02 Est GFR ( Amer) > 60 08/19/18 07:02 Est GFR (Non-Af Amer) > 60 08/19/18 07:02 POC Glucose (mg/dL) > 500 mg/dL (65-110) H* 08/24/18 11:17 Random Glucose 363 mg/dL (75-110) H D 08/19/18 07:02 Hemoglobin A1c 5.5 % (4.2-6.5) 07/09/18 04:36 Calcium 8.3 mg/dl (8.6-10.4) L 08/19/18 07:02 Phosphorus 2.5 mg/dL (2.5-4.5) 08/04/18 16:27 Magnesium 2.3 mg/dL (1.6-2.3) 08/04/18 16:27 Total Bilirubin 0.5 mg/dL (0.2-1.3) 08/19/18 07:02 AST 21 U/L (17-59) 08/19/18 07:02 ALT 41 U/L (21-72) 08/19/18 07:02 Alkaline Phosphatase 82 U/L (38-126) 08/19/18 07:02 Lactate Dehydrogenase 491 U/L (313-618) 07/31/18 14:12 Troponin I < 0.0120 ng/mL (0.00-0.120) 07/10/18 08:33 NT-Pro-B Natriuret Pep 1540 pg/mL (0-900) H 07/08/18 18:25 Total Protein 5.8 g/dL (6.3-8.3) L 08/19/18 07:02 Albumin 3.1 g/dL (3.5-5.0) L 08/19/18 07:02 Globulin 2.7 gm/dL (2.2-3.9) 08/19/18 07:02 Albumin/Globulin Ratio 1.1 (1.0-2.1) 08/19/18 07:02 A1AT Clinical Indicatr Not given 07/20/18 07:35 A1AT Referred By Not given 07/20/18 07:35 Hakse-9-Bopdrapgwrz 109 mg/dL (83-199) 07/20/18 07:35 A1AT Mutation See note 07/20/18 07:35 Alpha Fetoprotein 1.4 ng/mL (0.0-7.5) 07/11/18 17:51 Carcinoembryonic Ag 6.3 ng/mL (0-3.0) H 07/11/18 17:51 CA 19-9 Antigen 215 U/mL (0-37) H 07/11/18 17:51 CA 125 Antigen 46.8 U/mL (0-35) H 07/11/18 17:51 Free T4 0.76 ng/dL (0.78-2.19) L 07/12/18 08:31 Thyroxine (T4) 3.22 ug/dL (5.5-11.0) L 07/12/18 08:31 Free T3 pg/mL 2.89 pg/mL (2.77-5.27) 07/11/18 09:55 TSH 3rd Generation 0.17 mIU/L (0.46-4.68) L 07/12/18 08:31 Thyroid Stim Immunoglob 167 % baseline (<140) H 07/12/18 08:31 Arterial Blood Potassium 4.5 mmol/L (3.6-5.2) 07/16/18 21:30 Venous Blood Potassium 4.2 mmol/L (3.6-5.2) 07/08/18 18:19 Urine Color Yellow (YELLOW) 07/08/18 21:42 Urine Clarity Hazy (Clear) 07/08/18 21:42 Urine pH 6.0 (5.0-8.0) 07/08/18 21:42 Ur Specific [place] 1.011 (1.003-1.030) 07/08/18 21:42 Urine Protein Negative mg/dL (NEGATIVE) 07/08/18 21:42 Urine Glucose (UA) Normal mg/dL (Normal) 07/08/18 21:42 Urine Ketones Negative mg/dL (NEGATIVE) 07/08/18 21:42 Urine Blood 2+ (NEGATIVE) H 07/08/18 21:42 Urine Nitrate Negative (NEGATIVE) 07/08/18 21:42 Urine Bilirubin Negative (NEGATIVE) 07/08/18 21:42 Urine Urobilinogen Normal mg/dL (0.2-1.0) 07/08/18 21:42 Ur Leukocyte Esterase Neg Xiao/uL (Negative) 07/08/18 21:42 Urine WBC (Auto) < 1 /hpf (0-5) 07/08/18 21:42 Urine RBC (Auto) 15 /hpf (0-3) H 07/08/18 21:42 Urine Bacteria Rare (<OCC) 07/08/18 21:42 Vancomycin Trough < 5.0 ug/mL (5.0-10.0) L 07/24/18 07:38 Urine Opiates Screen Negative (NEGATIVE) 07/08/18 23:51 Urine Methadone Screen Negative (NEGATIVE) 07/08/18 23:51 Ur Barbiturates Screen Negative (NEGATIVE) 07/08/18 23:51 Ur Phencyclidine Scrn Negative (NEGATIVE) 07/08/18 23:51 Ur Amphetamines Screen Negative (NEGATIVE) 07/08/18 23:51 U Benzodiazepines Scrn Negative (NEGATIVE) 07/08/18 23:51 U Oth Cocaine Metabols Negative (NEGATIVE) 07/08/18 23:51 U Cannabinoids Screen Negative (NEGATIVE) 07/08/18 23:51 PAULO 6 Profile Negative (NEGATIVE) 07/13/18 Unknown Anti-SRP Antibody Not detected (Not detected) 07/10/18 17:04 Thyroperoxidase Ab <1 IU/mL (<9) 07/11/18 17:51 Thyroglobulin Antibody <1 IU/mL (< OR = 1) 07/11/18 17:51 C. difficile Ag & Toxin Negative (NEGATIVE) 07/20/18 10:08 Hepatitis A IgM Ab Negative (NEGATIVE) 07/09/18 10:48 Hep Bs Antigen Negative (NEGATIVE) 07/09/18 10:48 Hep B Core IgM Ab Negative (NEGATIVE) 07/09/18 10:48 Hepatitis C Antibody Negative (NEGATIVE) 07/09/18 10:48 HIV 1&2 Antibody Screen Negative (NEGATIVE) 07/09/18 04:36 Influenza Typ A,B (EIA) Negative for flu a/b (NEGATIVE) 07/08/18 17:35 Mycoplasma pneumon IgM Negative (NEGATIVE) 07/11/18 19:13 TB Test (QFT) Nil 0.07 IU/mL 07/09/18 09:31 TB Test Mitogen - Nil 0.29 IU/mL 07/09/18 09:31 TB Test TB - Nil 0.04 IU/mL 07/09/18 09:31 TB Test (QFT) Indeterminate (Negative) H 07/09/18 09:31 Blood Type A POSITIVE 07/27/18 07:05 Antibody Screen Negative 07/27/18 07:05 - Hospital Course Hospital Course: Patient is a 63 yo male with a history of pre-DM and hypotension not on any meds who presented to ED on 07/08/18 with SOB, cough, and weakness. on 07/08/18 with complaint of shortness of breath with associated chest pain on exertion with productive cough that started 15 days ago. He started to feel unwell and weak about 1 month ago. He says the SOB and chest pain occurred on and off every day, but no longer receded since 15 days ago. He described the chest pain as lung spasms and rated it 5/10 in severity. He located the chest pain as occurring on both sides of his chest and wrapping around his back and going down to his hips. The pain resolves within 30 min of rest, however immediately returns in as few as 5 steps. Every time he coughs, he produces a sticky, thick, white sputum; does not report any blood and mucus in the sputum. He reports that it is now painful to cough. He reports feeling nauseous every time he wants to eat for past 1 week. He estimates a 10kg weight loss in the last two years, mostly over the past 3 months. He says someone found him feeling dizzy and sitting on the ground on [facility] and brought him to the ED. Once in the hospital waiting room, he had an observed syncopal episode. Patient has a significant smoking history- 20 pk yrs and quit 1 month ago. 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 Imaging shows extensive interstitial pulmonary disease as well as pancreatic head abnormalities. Multiple tumor markers elevated. Consulted GI who did pancreas CT- rec follow-up imaging as outpatient. TB was ruled out and patient taken off of airborne isolation. Pulmonology saw patient and performed bronchoscopy with Bx 07/15- no malignancy identified. Bx sent to [place] who reported organized diffuse alveolar damage. Originally scheduled for a wedge Bx with cardiothoracic surgery but cancelled due to increased respiratory distress and hypoxia. Patient was alternating between nonrebreather and NC. Palliative care was consulted due to the patient's worsening condition and grave prognosis. Patient decided on comfort care on 08/20/18. He was placed on morphine drip. Patient on at 3:23 PM. Discharge Exam - Head Exam Head Exam: ATRAUMATIC, NORMAL INSPECTION - Eye Exam Pupil Exam: Fixed - ENT Exam ENT Exam: Mucous Membranes Dry - Neck Exam Neck exam: Normal Inspection - Respiratory Exam Additional comments: no breath sounds - Cardiovascular Exam Additional comments: no heart sounds or pulses - GI/Abdominal Exam GI & Abdominal Exam: Distended, Soft - Extremities Exam Additional comments: atrophy - Neurological Exam Additional comments: unresponsive - Skin Skin Exam: Dry, Normal Color Discharge Plan - Follow Up Plan Condition: Disposition: WITH WITHOUT AUTOPSY Instructions: Bronchiectasis in Adults, Interstitial Lung Disease, Syncope (DC)
== END 2018-08-25 17:28 | DRG 142 ==
LOC: C.ER 15:42 → C.9E 18:24 → C.5S 07-09 21:50 → C.6T 07-27 05:00 → C.3T 08-03 14:02
PROVIDERS: ADMIT Hospitalist; ATTEND Internal Medicine
PROC: 5A09357 Assistance with Respiratory Ventilation, Less than 24 Consecutive Hours, Continuous Positive Airway Pressure (ICD-10-PCS; 2018-07-08)
PROC: 0BDF8ZX Extraction of Right Lower Lung Lobe, Via Natural or Artificial Opening Endoscopic, Diagnostic (ICD-10-PCS; 2018-07-15)
PROC: 0BBF8ZX Excision of Right Lower Lung Lobe, Via Natural or Artificial Opening Endoscopic, Diagnostic (ICD-10-PCS; principal; 2018-07-15 11:00)
DX: J84.10 Pulmonary fibrosis, unspecified (principal); B37.1 Pulmonary candidiasis; J96.11 Chronic respiratory failure with hypoxia; E11.51 Type 2 diabetes mellitus with diabetic peripheral angiopathy without gangrene; E11.65 Type 2 diabetes mellitus with hyperglycemia; I27.20 Pulmonary hypertension, unspecified; J84.114 Acute interstitial pneumonitis; Z59.0 Homelessness; I10 Essential (primary) hypertension; F17.210 Nicotine dependence, cigarettes, uncomplicated; E07.81 Sick-euthyroid syndrome; Z79.4 Long term (current) use of insulin; J47.9 Bronchiectasis, uncomplicated; Z66 Do not resuscitate; R55 Syncope and collapse; Z51.5 Encounter for palliative care; K86.9 Disease of pancreas, unspecified